=== PATIENT | female | born 1960 | race Caucasian/White ===

== ENCOUNTER → 2017-06-17 | Day surgery (SDC) | payer OTHER ==
[2017-06-10 07:58] VITALS: Ht 167.6 cm; Wt 90.9 kg
[~2017-06-17] VITALS: Ht 167.6 cm; Wt 90.9 kg
[~2017-06-17] MED LIST: CALC1CHW57 PO; CLIN150C PO; CYAN1TAB18 PO; DLD/2 PO; DMD20 PO; FENTANYL CITRATE INJ 50 MCG/1 ML 2 ML VIAL ONE; FLX/5 PO; FSLL PO; HYDR2TAB48 PO; LCTL45 PO; LEVO75TA5 PO; LIDOCAINE HCL 2% 2 ML VIAL (20MG/ML) ONE; LXP/20 PO; MAGN400T6 PO; NRN/300 PO; OMEG10007 PO; PROPOFOL IV EMULSION 10 MG/ML 20 ML VIAL IV ONE; PRT/40 PO; RIFA550T2 PO; SODIUM CHLORIDE 0.9% 500ML 500 ML IV ONE; SUCR1TAB29 PO; TRAZ100T29 PO; WARF4TAB8 PO
[2017-06-17 13:43] VITALS: TEMP 36.8
--- NOTE | 2017-06-17 14:01 | Endo History and Physical ---
History & Physical Date of Service: Jun 17, 2017. Chief Complaint: DAVIS Referring Physician: Dr. Naresh Bro History of Present Illness cirrhosis Past Medical History Arthritis, Depression Past Surgical History Hx Cardiac Surgery: Yes (HEART CATH-NO STENTS) Hx Internal Defibrillator: No Hx Pacemaker: No Hx Abdominal Surgery: Yes (GASTRIC BYPASS) Hx of Implantable Prosthesis: No Hx Post-Op Nausea and Vomiting: No Hx Cancer Surgery: No Hx Thoracic Surgery: No Hx Orthopedic: Yes (RT SHOULDER SX AND HARDWARE REMOVAL, RT TKA AND REVISION ( ANX SPACER)) Hx Urinary Tract Surgery: No Family History None Social History Smoking Status: Never Smoker Hx Substance Use: Yes (SEE MED REC) Hx Alcohol Use: No Allergies Coded Allergies: Cefaclor (Verified Allergy, Intermediate, Swelling, 06/10/17) Amoxicillin (Verified Allergy, Mild, Nausea, 06/10/17) Oxycodone (Verified Allergy, Unknown, HIVES, 06/17/17) Current Medications Reported Home Medications Medications Dose Route/Sig Max Daily Dose Days Date Category Dose Instructions Carafate (Sucralfate) 1 Gm Tab 1 Gm PO BID PRN 06/10/17 Reported Trazodone (Trazodone HCl) 100 Mg Tab 100 Mg PO HS 06/10/17 Reported Neurontin (Gabapentin) 300 Mg Cap 2 Tab PO BID 06/10/17 Reported Calcium + D (Calcium W/ Vitamins D & K) 1 Chw Chw 1 Dose PO BID 06/10/17 Reported Lactulose 30 Gm/45 Ml Syrp 30 Gm PO DIRECTED 07/21/16 Reported TAKE IF NOT HAVE A BM Mag-Ox (Magnesium Oxide) 400 Mg Tab 400 Mg PO BID 07/21/16 Reported Cyclobenzaprine HCl 5 Mg Tab 5 Mg PO BID PRN 07/21/16 Reported Hydromorphone HCl 2 Mg Tab 2 Mg PO TID 07/21/16 Reported Escitalopram Oxalate 20 Mg Tab 20 Mg PO QAM 07/21/16 Reported Pantoprazole Sodium (Pantoprazole) 40 Mg Tab 40 Mg PO BID PRN 07/21/16 Reported Xifaxan (Rifaximin) 550 Mg Tab 550 Mg PO BID 07/21/16 Reported Torsemide 20 Mg Tab 40 Mg PO BID 07/17/16 Reported Jantoven (Warfarin Sodium) 4 Mg Tab 4 Mg PO 5XWK 07/17/16 Reported TAKE 4 MG EVERY THURSDAY,THURSDAY,THURSDAY,THURSDAY AND THURSDAY OR OTHERWISE DIRECTED TO TAKE BY ANTICOAGULATION CLINIC/MD Ferrous Sulfate 220 Mg/5 Ml Elix 1 Dose PO QAM 07/17/16 Reported Jantoven (Warfarin Sodium) 4 Mg Tab 6 Mg PO 2XWK 07/17/16 Reported TAKE 6 MG EVERY THURSDAY AND THURSDAY OR OTHERWISE DIRECTED TO TAKE BY ANTICOAGULATION CLINIC/MD Levothyroxine Sodium 75 Mcg Tab 75 Mcg PO QAM 07/17/16 Reported [place]-3 (Fish Oil) 1 Ea Cap 1 Cap PO BID 10/08/15 Reported B-12 (Cyanocobalamin) 1,000 Mcg Tab 1,000 Mcg PO QAM 10/08/15 Reported Vital Signs Weight (Kilograms): 90.91 Height (Feet): 5 Height (Inches): 6 Date Time Temp Pulse Resp B/P (MAP) Pulse Ox O2 Delivery O2 Flow Rate FiO2 06/17/17 13:43 36.8 78 20 114/77 (89) 99 Room Air Physical Exam General Appearance: WD/WN, no apparent distress Assessment and Plan EGD today
--- NOTE | 2017-06-17 14:22 | Discharge Instructions ---
Endoscopy Patient Instructions Date / Procedure(s) Performed Jun 17, 2017. EGD Allergy Information Coded Allergies: Cefaclor (Verified Allergy, Intermediate, Swelling, 06/10/17) Amoxicillin (Verified Allergy, Mild, Nausea, 06/10/17) Oxycodone (Verified Allergy, Unknown, HIVES, 06/17/17) Discharge Date / Findings Jun 17, 2017. small flattened esophageal varices RYGB Medication Instructions Stopped Medication(s): Last dose Warfarin 06/14 Restart Stopped Medication(s): OK to resume home medications Provider Instructions Activity Restrictions - No exercising or heavy lifting for 24 hours. - Do not drink alcohol the day of the procedure. - Do not drive a car or operate machinery until the day after the procedure. - Do not make any important decisions or sign important papers in 24 hours after the procedure. Following Day: - Return to full activity which may include returning to work/school. Diet Start your diet with liquids and light foods (jello, soup, juice, toast). Then eat your usual diet if not nauseated. Treatment For Common After Affects For mild abdominal pain, bloating, or excessive gas: - Rest - Eat lightly - Lie on right side Follow-Up Information Follow-up with Dr. Naresh Bro as scheduled Anesthesia Information What You Should Know You have had a procedure that required some medicine to reduce anxiety and discomfort. This treatment is called moderate sedation. After receiving the treatment, you may be sleepy, but you will be able to breathe on your own. The effects of the treatment may last for several hours. Follow these instructions along with Activity/Diet recommendations noted above: * Do NOT do anything where dizziness or clumsiness would be dangerous. * Rest quietly at home today, then you can be up and about tomorrow. * Have a responsible person stay with you the rest of today. * You may have had an I.V. today. If so, you may take the dressing off later today. Recommendations Call your doctor if: * Trouble breathing * Continuous vomiting for more than 24 hours * Temperature above 101 degrees * Severe abdominal pain or bloating * Pain not relieved by pain medicine ordered * There is increased drainage or redness from any incision * A large amount of rectal bleeding greater than 2-3 tablespoons. (If you had a polyp/s removed or have hemorrhoids, a small amount of blood - from the rectum is to be expected.) * You have any unanswered questions or concerns. IN THE EVENT OF A SERIOUS EMERGENCY, GO TO THE NEAREST EMERGENCY ROOM Your discharge instructions were prepared by provider Luz Marina Gallegos. Patient Instructions Signature Page Cherrie Ascencio Patient (or Guardian) Signature/Date: I have read and understand the instructions given to me by my caregivers. Caregiver/RN/Doctor Signature/Date: The above-named patient and/or guardian has received patient instructions on this date. + Original Patient Signature Page (only) stays with chart. Please make copy for patient.
--- NOTE | 2017-06-17 14:28 | GI REPORT ---
Procedure Date: 06/17/2017 1:34 PM Procedure: Upper GI endoscopy Indications: Cirrhosis rule out esophageal varices Medicines: Propofol per Anesthesia Complications: No immediate complications. Estimated blood loss: None. Estimated Blood Loss: Estimated blood loss: none. Procedure: Pre-Anesthesia Assessment: - Prior to the procedure, a History and Physical was performed, and patient medications, allergies and sensitivities were reviewed. The patient's tolerance of previous anesthesia was reviewed. - The risks and benefits of the procedure and the sedation options and risks were discussed with the patient. All questions were answered and informed consent was obtained. - Patient identification and proposed procedure were verified prior to the procedure by the physician and the nurse. The procedure was verified in the pre-procedure area in the procedure room. - Mental Status Examination: alert and oriented. Airway Examination: normal oropharyngeal airway and neck mobility. Respiratory Examination: clear to auscultation. CV Examination: normal. Abdominal Examination: bowel sounds present, abdomen soft and non-tender, no masses or organomegaly noted. - ASA Grade Assessment: III - A patient with severe systemic disease. After obtaining informed consent, the endoscope was passed under direct vision. Throughout the procedure, the patient's blood pressure, pulse, and oxygen saturations were monitored continuously. The scope was introduced through the mouth, and advanced to the jejunum. The upper GI endoscopy was accomplished without difficulty. The patient tolerated the procedure well. Findings: Grade I varices were found in the lower third of the esophagus. Evidence of a Silvio-en-Y gastrojejunostomy was found. The gastrojejunal anastomosis was characterized by healthy appearing mucosa, an intact staple line and visible sutures. This was traversed. The pzwuw-ki-tjvnyle limb was characterized by healthy appearing mucosa. The jejunojejunal anastomosis was characterized by healthy appearing mucosa. The examined jejunum was normal. Impression: - Grade I esophageal varices. - Silvio-en-Y gastrojejunostomy with gastrojejunal anastomosis characterized by healthy appearing mucosa, an intact staple line and visible sutures. - Normal examined jejunum. - No specimens collected. Recommendation: - Repeat the upper endoscopy in 2 years for surveillance. - Return to primary care physician as previously scheduled. - Discharge patient to home. Luz Marina Gallegos D.O. Luz Marina Gallegos DO 06/17/2017 2:27:33 PM This report has been signed electronically. Note Initiated On: 06/17/2017 1:34 PM I attest to the content of the Intraoperative Record and orders documented therein, exceptions below
--- NOTE | 2017-06-17 14:48 | Anesthesiology Progress Note ---
Anesthesia Post Op Note Date & Time Jun 17, 2017 at 14:47 Vital Signs Pain Intensity: 0 Vital Signs Past 12 Hours Date Time Temp Pulse Resp B/P (MAP) Pulse Ox O2 Delivery O2 Flow Rate FiO2 06/17/17 14:34 72 20 133/76 (95) 95 Room Air 06/17/17 14:19 71 20 112/62 (79) 95 Room Air 06/17/17 13:43 36.8 78 20 114/77 (89) 99 Room Air Notes Mental Status: alert / awake / arousable, participated in evaluation Pt Amnestic to Procedure: Yes Nausea / Vomiting: adequately controlled Pain: adequately controlled Airway Patency, RR, SpO2: stable & adequate BP & HR: stable & adequate Hydration State: stable & adequate Anesthetic Complications: no major complications apparent
[2017-06-17 14:49] VITALS: BP 126/87; PULSE 68; O2SAT 100
== END | disposition home or self-care (01) ==
LOC: C.GI 12:27
PROVIDERS: ATTEND Internal Medicine
DX: I85.00 Esophageal varices without bleeding (principal); K74.60 Unspecified cirrhosis of liver; M19.90 Unspecified osteoarthritis, unspecified site; F32.9 Major depressive disorder, single episode, unspecified; Z98.84 Bariatric surgery status; Z79.899 Other long term (current) drug therapy; Z79.01 Long term (current) use of anticoagulants

== ENCOUNTER 2017-07-12 08:20 | Emergency (ER) | payer OTHER ==
[~2017-07-12] VITALS: Ht 170.2 cm; Wt 100.0 kg
[~2017-07-12 08:20] MED LIST changes: -CLIN150C PO; -FENTANYL CITRATE INJ 50 MCG/1 ML 2 ML VIAL ONE; -HYDR2TAB48 PO; -LIDOCAINE HCL 2% 2 ML VIAL (20MG/ML) ONE; -PROPOFOL IV EMULSION 10 MG/ML 20 ML VIAL IV ONE; -SODIUM CHLORIDE 0.9% 500ML 500 ML IV ONE
[2017-07-12 08:24] VITALS: TEMP 36.7; Ht 170.2 cm; Wt 100.0 kg
--- NOTE | 2017-07-12 09:02 | DIAGNOSTIC IMAGING REPORT ---
RIGHT SHOULDER MIN 2 VIEWS ROUTINE CLINICAL HISTORY: R shoulder pain Right pain COMPARISON: None. DISCUSSION: Severe degenerative change right humeral head and neck. Considerable degenerative change right glenoid. Mild degenerative change acromioclavicular joint. No well-defined fracture dislocation. There is no evidence for soft tissue swelling. IMPRESSION: Severe degenerative and postoperative change as described. No acute bony abnormality. The above report was generated using voice recognition software. It may contain grammatical, syntax or spelling errors. Electronically signed by: Naresh Gutierres M.D. 07/12/2017 9:00 AM Dictated Date/Time: 07/12/2017 9:00 AM
[2017-07-12] MEDS ORDERED: ONDANSETRON INJ 2 MG/ML 2 ML VIAL IV STA (09:38)
[2017-07-12] MEDS ORDERED: MoRPHine SULFATE 4 MG/ML 1 ML CARP\\VIAL IV STA (09:38)
[2017-07-12 10:37] LABS: BASO % 0.6 %; BASO ABS # 0.04 K/uL (0-0.2); COMPLETE YES; EOS % 2.3 %; HEMATOCRIT 37.1 % (37-47); IG% 0.3 %; LYMPH % 18.3 %; LYMPH ABS # 1.17 K/uL (1.2-3.4); MEAN CELL VOLUME 89.8 fL (80-100); MEAN CORPUSCULAR HEMOGLOBIN 27.6 pg (25-34); MEAN CORPUSCULAR HGB CONC 30.7 g/dl (32-36); MEAN PLATELET VOLUME 9.9 fL (7.4-10.4); MONO % 7.7 %; NEUT % 70.8 %; PLATELET COUNT 240 K/uL (130-400); RED BLOOD COUNT 4.13 M/uL (4.2-5.4); WHITE BLOOD COUNT 6.39 K/uL (4.8-10.8)
[2017-07-12 11:24] VITALS: BP 162/70; PULSE 66; O2SAT 98
--- NOTE | 2017-07-12 17:26 | EMERGENCY ROOM VISIT NOTE ---
History First contact with patient: 08:28 Chief Complaint: SHOULDER PAIN Stated Complaint: R SHOULDER PAIN,POSS. DISLOCATION History of Present Illness The patient is a 57 year old white female who presents to the Emergency Room with complaints of severe right shoulder pain that started this morning. 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 This was subsequently removed. She has had chronic pain in her shoulder. She usually uses Dilaudid orally every 8 hours. She states she felt a pop in her shoulder this morning and has had excruciating pain since. She is unsure where the pop came from. No numbness or tingling. She is wondering if her shoulder is dislocated. A female friend accompanies her today. Right-hand dominant. No other complaints. She states she has been using the shoulder more to help pull herself up the stairs. She states she normally sees Dr. Randhawa for her shoulder, but did not contact him today. Review of Systems REVIEW OF SYSTEM: HEENT: No dizziness, visual problems, hearing loss, or tinnitus. There is no difficulty swallowing and no oral lesions are present. LYMPH: No adenopathy. PULMONARY: No cough, shortness of breath, sputum production or hemoptysis. CARDIOVASCULAR: No chest pain, palpitations, shortness of breath or peripheral edema. GASTROINTESTINAL: No diarrhea, constipation, nausea, vomiting, or abdominal pain. GENITOURINARY: No dysuria, frequency, urgency or nocturia. NEUROLOGIC: No weakness, muscle tenderness, epilepsy or history of neurological problems. MUSCULOSKELETAL: No history of joint tenderness/swelling. Positive history of arthritis and arthralgias. SKIN: No rashes or lesions. PSYCHIATRIC: Positive history of depression. ENDOCRINE: No history of diabetes or abnormal hair growth. Past Medical/Surgical History Medical Problems: (1) Acute renal failure (ARF) (2) Anemia, iron deficiency (3) Cirrhosis (4) Gastric peptic ulcer (5) gatro gastic fistulae (6) Hypoalbuminemia (7) Hyponatremia (8) Pyuria (9) Weakness Family History Noncontributory. Social History Smoking Status: Never Smoker Alcohol Use: none, other Drug Use: none Housing Status: lives with family Occupation Status: disabled Current/Historical Medications Scheduled Calcium W/ Vitamins D & K (Calcium + D), 1 DOSE PO BID Cyanocobalamin (B-12), 1,000 MCG PO QAM Escitalopram Oxalate (Escitalopram Oxalate), 20 MG PO QAM Ferrous Sulfate (Ferrous Sulfate), 1 DOSE PO QAM Fish Oil ([place]-3), 1 CAP PO BID Gabapentin (Neurontin), 2 TAB PO BID Lactulose (Lactulose), 30 GM PO DIRECTED Levothyroxine Sodium (Levothyroxine Sodium), 75 MCG PO QAM Magnesium Oxide (Mag-Ox), 400 MG PO BID Rifaximin (Xifaxan), 550 MG PO BID Torsemide (Torsemide), 40 MG PO BID Trazodone Hcl (Trazodone), 100 MG PO HS Warfarin Sod (Jantoven), 6 MG PO 2XWK Warfarin Sod (Jantoven), 4 MG PO 5XWK Scheduled PRN Cyclobenzaprine HCl (Cyclobenzaprine HCl), 5 MG PO BID PRN for Muscle Spasm Pantoprazole (Pantoprazole Sodium), 40 MG PO BID PRN for Acid Reflux Sucralfate (Carafate), 1 GM PO BID PRN for Indigestion Allergies Coded Allergies: Cefaclor (Verified Allergy, Intermediate, Swelling, 07/12/17) Amoxicillin (Verified Allergy, Mild, Nausea, 07/12/17) Oxycodone (Verified Allergy, Unknown, HIVES, 07/12/17) Physical Exam Vital Signs Date Time Temp Pulse Resp B/P (MAP) Pulse Ox O2 Delivery O2 Flow Rate FiO2 07/12/17 11:24 66 18 162/70 98 07/12/17 10:15 66 18 154/76 100 Room Air 07/12/17 08:24 36.7 85 16 157/109 99 Room Air Pain Rating (0-10): 5.0 Physical Exam Gen.: Well-developed, well-nourished, middle-aged white female, who looks older than her stated age. Sitting on a bed. Crying. Alert and oriented. Skin:Warm and dry with good turgor. No rashes or lesions. No ecchymosis or erythema. The patient is not diaphoretic. No abrasions. Large scar present over the anterior right shoulder. Musculoskeletal: Patient has diffuse discomfort with palpation about her right shoulder. It is both posterior and lateral. No defect palpable in the proximal biceps tendon. No barber sign for the elbow. Very limited active and passive range of motion of the right shoulder secondary to pain. Internal rotation to forearm against her abdomen. Extremities only to neutral. Very limited forward flexion and abduction secondary to pain. Full finger, wrist, and elbow motion. Strength is 5/5 for resisted internal and external rotation of the shoulder as well as forward flexion and abduction. These all cause an increase in her pain. No palpable fullness in the anterior chest wall and no sulcus sign to suggest dislocation. Neurologic: Gross sensation is intact across the right arm by soft touch. Peripheral pulses are 2+. Medical Decision & Procedures ER Provider Diagnostic Interpretation: Radiographic imaging obtained today of the right shoulder was reviewed by me and will be read by radiology. Extensive arthritic changes with no hardware present. She has a large irregular services on the glenoid as well as the proximal humeral shaft. There is no humeral head to speak of. No new fracture though there is an old fracture callus. Laboratory Results 07/12/17 10:25 Red Blood Count 4.13, Mean Corpuscular Volume 89.8, Mean Corpuscular Hemoglobin 27.6, Mean Corpuscular Hemoglobin Concent 30.7, Mean Platelet Volume 9.9, Neutrophils (%) (Auto) 70.8, Lymphocytes (%) (Auto) 18.3, Monocytes (%) (Auto) 7.7, Eosinophils (%) (Auto) 2.3, Basophils (%) (Auto) 0.6, Neutrophils # (Auto) 4.52, Lymphocytes # (Auto) 1.17, Monocytes # (Auto) 0.49, Eosinophils # (Auto) 0.15, Basophils # (Auto) 0.04 Test 07/12/17 10:25 White Blood Count 6.39 K/uL (4.8-10.8) Red Blood Count 4.13 M/uL (4.2-5.4) Hemoglobin 11.4 g/dL (12.0-16.0) Hematocrit 37.1 % (37-47) Mean Corpuscular Volume 89.8 fL (80-100) Mean Corpuscular Hemoglobin 27.6 pg (25-34) Mean Corpuscular Hemoglobin Concent 30.7 g/dl (32-36) Platelet Count 240 K/uL (130-400) Mean Platelet Volume 9.9 fL (7.4-10.4) Neutrophils (%) (Auto) 70.8 % Lymphocytes (%) (Auto) 18.3 % Monocytes (%) (Auto) 7.7 % Eosinophils (%) (Auto) 2.3 % Basophils (%) (Auto) 0.6 % Neutrophils # (Auto) 4.52 K/uL (1.4-6.5) Lymphocytes # (Auto) 1.17 K/uL (1.2-3.4) Monocytes # (Auto) 0.49 K/uL (0.11-0.59) Eosinophils # (Auto) 0.15 K/uL (0-0.5) Basophils # (Auto) 0.04 K/uL (0-0.2) RDW Standard Deviation 46.6 fL (36.4-46.3) RDW Coefficient of Variation 14.1 % (11.5-14.5) Immature Granulocyte % (Auto) 0.3 % Immature Granulocyte # (Auto) 0.02 K/uL (0.00-0.02) Erythrocyte Sedimentation Rate 15 mm/hr (0-21) C-Reactive Protein < 0.29 mg/dl (0-0.29) CBC, sedimentation rate, and C-reactive protein were obtained. These are all unremarkable. No signs of infection or significant inflammation. Medications Administered Medications (Trade) Dose Ordered Sig/Jerel Route Start Time Stop Time Status Last Admin Dose Admin Morphine Sulfate (MoRPHine SULFATE INJ) 4 mg NOW STAT IV 07/12/17 09:38 07/12/17 09:41 DC 07/12/17 10:11 4 MG Ondansetron HCl (Zofran Inj) 4 mg NOW STAT IV 07/12/17 09:38 07/12/17 09:41 DC 07/12/17 10:11 4 MG ED Course Patient was educated regarding today's findings. Conservative care measures were discussed. X-ray imaging was obtained. CBC, sedimentation rate, and C- reactive protein were all obtained and are unremarkable. She already takes heavier narcotics on a daily basis and I did augment these using morphine 4 mg IV and Zofran 4 mg IV for her acute pain. She may resume her normal medications this evening. Ice to the shoulder intermittently for mild discomfort. Ice bag was provided in the ED. She was also given a lengthy support her shoulder. She should be out of it several times per day to emphasize range of motion. Follow-up with Dr. Randhawa to discuss whether a cortisone injection would be of benefit. She may also speak with him about any further surgical intervention. Medical Decision Possibility of dislocation, fracture, rotator cuff irritation, arthritis exacerbation, biceps tendon rupture, rotator cuff rupture, and infection were considered. [place] Drug Monitoring Program Search Results: patient reviewed within database (receives narcotic prescriptions from Dr. Bro) Impression Primary Impression: Chronic right shoulder pain Departure Information Dispostion Home / Self-Care Condition GOOD Forms HOME CARE DOCUMENTATION FORM, IMPORTANT VISIT INFORMATION Patient Instructions My [employer] Additional Instructions Ice intermittently to the shoulder as needed for discomfort Use the sling as needed for support Continue your usual pain medications Follow-up with Dr. Randhawa for reexamination or to discuss cortisone injection Return to the ED for any acute changes
== END 2017-07-12 11:25 | disposition home or self-care (01) ==
LOC: C.EDB 08:21
DX: M25.511 Pain in right shoulder (principal); D64.9 Anemia, unspecified; N19 Unspecified kidney failure; E88.09 Other disorders of plasma-protein metabolism, not elsewhere classified; E87.1 Hypo-osmolality and hyponatremia; Z79.01 Long term (current) use of anticoagulants

== ENCOUNTER 2017-08-02 08:38 | Emergency (ER) | payer OTHER ==
[~2017-08-02] VITALS: Ht 170.2 cm; Wt 106.0 kg
[~2017-08-02 08:38] MED LIST changes: -DLD/2 PO
[2017-08-02] MEDS ORDERED: LIDOCAINE 4% W/AFRIN NASAL SOLN 4ML EXT STA (08:41)
[2017-08-02 08:42] VITALS: TEMP 36.9; Ht 170.2 cm; Wt 106.0 kg
--- NOTE | 2017-08-02 08:56 | EMERGENCY ROOM VISIT NOTE ---
History Report prepared by Sushma: Mariama Martinez Under the Supervision of: Dr. Real Jackson M.D. First contact with patient: 08:41 Chief Complaint: NOSE BLEED (MINOR) Stated Complaint: NOSEBLEED-COUMADIN PATIENT History of Present Illness The patient is a 57 year old female who presents to the Emergency Room with complaints of a persistent nosebleed for the past 24 hours. She does take daily Coumadin for a history of atrial fibrillation. She notes the bleeding worsens when she moves around. She admits to increased rhinorrhea for the past few days but denies turning the heat on in her home this past week. 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 A total of 10 systems reviewed and were otherwise negative. Past Medical & Surgical Medical Problems: (1) Acute renal failure (ARF) (2) Anemia, iron deficiency (3) Cirrhosis (4) Gastric peptic ulcer (5) gatro gastic fistulae (6) Hypoalbuminemia (7) Hyponatremia (8) Pyuria (9) Weakness Social History Smoking Status: Never Smoker Alcohol Use: none, other Drug Use: none Marital Status: Housing Status: lives with family Occupation Status: disabled Current/Historical Medications Scheduled Calcium W/ Vitamins D & K (Calcium + D), 1 DOSE PO BID Clindamycin Hcl (Cleocin), 300 MG PO QID Cyanocobalamin (B-12), 1,000 MCG PO QAM Escitalopram Oxalate (Escitalopram Oxalate), 20 MG PO QAM Ferrous Sulfate (Ferrous Sulfate), 1 DOSE PO QAM Fish Oil ([place]-3), 1 CAP PO BID Gabapentin (Neurontin), 2 TAB PO BID Hydromorphone Hcl (Dilaudid), 2 MG PO TID Lactulose (Lactulose), 30 GM PO DIRECTED Levothyroxine Sodium (Levothyroxine Sodium), 75 MCG PO QAM Magnesium Oxide (Mag-Ox), 400 MG PO BID Rifaximin (Xifaxan), 550 MG PO BID Torsemide (Torsemide), 40 MG PO BID Trazodone Hcl (Trazodone), 100 MG PO HS Warfarin Sod (Jantoven), 6 MG PO 2XWK Warfarin Sod (Jantoven), 4 MG PO 5XWK Scheduled PRN Pantoprazole (Pantoprazole Sodium), 40 MG PO BID PRN for Acid Reflux Sucralfate (Carafate), 1 GM PO BID PRN for Indigestion Allergies Coded Allergies: Cefaclor (Verified Allergy, Intermediate, Swelling, 08/02/17) Amoxicillin (Verified Allergy, Mild, Nausea, 08/02/17) Oxycodone (Verified Allergy, Unknown, HIVES, 08/02/17) Physical Exam Vital Signs Date Time Temp Pulse Resp B/P (MAP) Pulse Ox O2 Delivery O2 Flow Rate FiO2 08/02/17 12:30 70 18 154/99 96 Room Air 08/02/17 10:45 83 18 150/97 97 Room Air 08/02/17 08:42 36.9 89 18 152/91 100 Room Air Physical Exam GENERAL: Patient is a healthy-appearing well-nourished 57 year old female HEAD: Normocephalic atraumatic EYES: Ocular movements intact pupils equal and react to light OROPHARYNX: Bleeding fro right nares, blood in the back of the throat, mucous membranes are moist, no exudates, present no erythema or edema present NECK: Supple no nuchal rigidity CHEST: Good equal expansion LUNGS: Clear and equal to auscultation CARDIAC: Normal S1 and S2 ABDOMEN: Soft nontender no guarding BACK: No CVA tenderness EXTREMITIES: No pain upon palpation normal muscle strength in all groups no clubbing cyanosis or edema NEURO: Patient is following commands is answering questions appropriately. Alert and oriented x3 Cranial Nerves 2-12 grossly intact Medical Decision & Procedures Laboratory Results Test 08/02/17 09:15 Prothrombin Time 51.3 SECONDS (9.0-12.0) Prothromb Time International Ratio 4.5 (0.9-1.1) Labs reviewed by ED physician. Medications Administered Medications (Trade) Dose Ordered Sig/Jerel Route Start Time Stop Time Status Last Admin Dose Admin Oxycodone/ Acetaminophen (Percocet 5-325mg Tab) 2 tab NOW STAT PO 08/02/17 09:02 08/02/17 09:05 DC 08/02/17 09:25 2 TAB Hydromorphone HCl (Dilaudid Inj) 2 mg NOW STAT IM 08/02/17 12:53 08/02/17 12:54 DC 08/02/17 13:03 2 MG Clindamycin HCl (Cleocin Cap) 300 mg ONE ONCE PO 08/02/17 13:15 08/02/17 13:16 DC 08/02/17 13:28 300 MG Clindamycin HCl (Cleocin 150MG Home Pack) 1 homepack UD STAT PO 08/02/17 13:07 08/02/17 13:09 DC 08/02/17 13:28 1 HOMEPACK Procedure 1st Attempt: Anterior Nasal Packing Indication: Epistaxis Verbal consent obtained. Risks and benefits were explained with the usual customary discussion. A time out was taken. Clots were removed with suction. The bilateral nares was prepped with Afrin and lidocaine. A 5.5-cm cotton nose plug was placed in a standard fashion. The patient tolerated this well. Hemostasis was achieved. I cautioned the patient she cannot drink with this in place. No complications. 2nd Attempt: Anterior Nasal Packing Indication: Epistaxis Verbal consent obtained. Risks and benefits were explained with the usual customary discussion. A time out was taken. Clots were removed with suction. The bilateral nares was prepped with Afrin and lidocaine. A 5.5-cm nasal balloon was placed in a standard fashion. The patient tolerated this well. Hemostasis was achieved. I cautioned the patient she cannot drink with this in place. No complications. ED Course 0848: Past medical records reviewed. The patient was evaluated in room B2. A complete history and physical examination was performed. 0850: Lidocaine HCl 4 ml EXT. 0902: Percocet 5-325 mg 2 tab PO. 0920: I reevaluated the patient. She is still not bleeding. 0935: I reevaluated the patient. She is still not bleeding. 1010: I reevaluated the patient. She is feeling well and resting comfortably. She has experienced no further bleeding. I discussed her results and discharge instructions and she verbalized complete understanding and agreement. 1045: Nursing informed me the patients nose has started bleeding again. 1100: I reevaluated the patient. I will try placing cotton nosebleed plugs and see if that stops the bleeding. 1205: I reevaluated the patient. She is still experiencing epistaxis. I will try placing a balloon. 1307: Clindamycin HCl 1 homepack PO. 1310: I reevaluated the patient. She is no longer bleeding. I discussed her results and discharge instructions and she verbalized complete understanding and agreement. 1315: Clindamycin 300 mg PO. Medical Decision Prior records/ancillary studies reviewed. Triage Nursing notes reviewed. The patient's history was concerning for epistaxis. Differential diagnosis: Etiologies such as anterior epistaxis, coagulopathy, traumatic injury, fracture , septal hematoma, posterior epistaxis as well as other pathologies were entertained. This is a 57-year-old female who presents emergency department complaining of nosebleed. Using shared medical decision making, we tried progressively to get the patient's epistaxis under control first using removable packing then using flakes then a Rhino Rocket and finally a balloon. The patient was given Percocet for pain as well as Dilaudid. Once the balloon was in place the patient's epistaxis was controlled. I do feel that she is well enough to be discharged home for follow-up with ear nose and throat. She'll be placed on clindamycin. Patient was in agreement with the treatment plan. Medication Reconcilliation Current Medication List: was personally reviewed by me Blood Pressure Screening Patient's blood pressure: Elevated blood pressure Blood pressure disposition: Referred to PCP Impression Primary Impression: Epistaxis Scribe Attestation The scribe's documentation has been prepared under my direction and personally reviewed by me in its entirety. I confirm that the note above accurately reflects all work, treatment, procedures, and medical decision making performed by me. Departure Information Dispostion Home / Self-Care Prescriptions Clindamycin Hcl (CLEOCIN) 150 Mg Cap 300 MG PO QID for 2 Days, #16 CAP Prov: Real Jackson MD 08/02/17 Referrals Narseh Bro M.D. (PCP) Patient Instructions ED Nasal Packing Anterior Removable, ED Nosebleed, My [facility] Additional Instructions Coumadin INR =4.5; Hold Coumadin for two days Return in [address] Willard's office to have balloon removed Follow up with DR Willard's office for continued bleeding You were found to have an elevated blood pressure today (>120 sytolic or >90 diastolic). Per medicare guidelines, you need to follow up with this blood pressure screening with your Primary Care Physician (PCP). For a new PCP call [phone]. You have been examined and treated today on an emergency basis only. This is not a substitute for, or an effort to provide, complete comprehensive medical care. It is impossible to recognize and treat all injuries or illnesses in a single emergency department visit. It is therefore important that you follow up closely with Dr Bro. Call as soon as possible for an appointment. Thank you for your time and consideration. I look forward to speaking with you again soon. Please don't hesitate to call us if you have any questions.
[2017-08-02] MEDS ORDERED: OXYCODONE/ACETAMINOPHEN 5-325 TAB PO STA (09:02)
[2017-08-02] MEDS ORDERED: HYDR2TAB48 PO (09:13)
[2017-08-02 09:59] LABS: INR 4.5 (0.9-1.1); PROTHROMBIN TIME (PATIENT) 51.3 SECONDS (9.0-12.0)
[2017-08-02] MEDS ORDERED: HYDROmorphone INJ 2 MG/ML SYR/VIAL IM STA (12:53)
[2017-08-02] MEDS ORDERED: CLINDAMYCIN 150MG HOME PACK PO STA (13:07)
[2017-08-02] MEDS ORDERED: CLIN150C PO (13:09)
[2017-08-02] MEDS ORDERED: CLINDAMYCIN HCL 150 MG CAP PO ONE (13:15)
[2017-08-02 13:35] VITALS: BP 122/99; PULSE 75; O2SAT 97
== END 2017-08-02 14:16 | disposition home or self-care (01) ==
LOC: C.EDB 08:40
DX: R04.0 Epistaxis (principal); E61.1 Iron deficiency; N17.9 Acute kidney failure, unspecified; K74.60 Unspecified cirrhosis of liver; E88.09 Other disorders of plasma-protein metabolism, not elsewhere classified; E87.1 Hypo-osmolality and hyponatremia; Z79.01 Long term (current) use of anticoagulants; Z51.81 Encounter for therapeutic drug level monitoring

== ENCOUNTER 2017-09-22 01:44 | Emergency (ER) | payer OTHER ==
[~2017-09-22] VITALS: Ht 175.3 cm; Wt 107.4 kg
[~2017-09-22 01:44] MED LIST changes: -FLX/5 PO; +HYDR2TAB48 PO; +PANT40TA2 PO; -PRT/40 PO
[2017-09-22 01:49] VITALS: TEMP 36.3; Ht 175.3 cm; Wt 107.4 kg
[2017-09-22] MEDS ORDERED: HYDROmorphone INJ 2 MG/ML SYR/VIAL IM STA (01:58)
[2017-09-22] MEDS ORDERED: KETOROLAC TROMETHAMINE 60 MG/2 ML VIAL IM STA (02:01)
[2017-09-22 02:33] VITALS: BP 163/94; PULSE 73; O2SAT 97
--- NOTE | 2017-09-22 04:35 | EMERGENCY ROOM VISIT NOTE ---
History Report prepared by Sushma: Yahaira Brandon Under the Supervision of: Dr. Brinda Chowdary M.D. First contact with patient: 01:52 Chief Complaint: SHOULDER PAIN Stated Complaint: RT SHOULDER PAIN History of Present Illness The patient is a 57 year old female who presents to the Emergency Room with complaints of worsening shoulder pain starting this evening. The patient states that she doesn't have a shoulder joint. She states that the pain is different than usual and that it is going the whole way down her arm. She states that she can't move it and if she tries, the pain is worse. She states that the pain feels muscular and that it feels like it is pulling on her neck, chest, and back. The patient notes that she was here in July for the same thing. She notes that she ran out of her Dilaudid five days ago. She states that she came to the ED because she couldn't lie down to go to sleep. The patient denies shortness of breath and chest pain. The patient notes that her orthopedic surgeon wants to place a spacer in her shoulder. She notes that she plans to do that. Source of History: patient Onset: this evening Position: shoulder (right) Quality: other (pulling, muscular) Timing: worsening Modifying Factors (Worsening): movement Associated Symptoms: No chest pain, No SOB Note: The patient complains of the pain pulling on her neck, back, and chest. Review of Systems See HPI for pertinent positives & negatives. A total of 10 systems reviewed and were otherwise negative. Past Medical & Surgical Medical Problems: (1) Acute renal failure (ARF) (2) Anemia, iron deficiency (3) Cirrhosis (4) Gastric peptic ulcer (5) gatro gastic fistulae (6) Hypoalbuminemia (7) Hyponatremia (8) Pyuria (9) Weakness Family History No pertinent family history Social History Smoking Status: Never Smoker Alcohol Use: none, other Drug Use: none Marital Status: Housing Status: lives with family Occupation Status: disabled Current/Historical Medications Scheduled Calcium W/ Vitamins D & K (Calcium + D), 1 DOSE PO BID Cyanocobalamin (B-12), 1,000 MCG PO QAM Escitalopram Oxalate (Escitalopram Oxalate), 20 MG PO QAM Ferrous Sulfate (Ferrous Sulfate), 1 DOSE PO QAM Fish Oil ([place]-3), 1 CAP PO BID Gabapentin (Neurontin), 2 TAB PO BID Hydromorphone Hcl (Dilaudid), 2 MG PO TID Lactulose (Lactulose), 30 GM PO DIRECTED Levothyroxine Sodium (Levothyroxine Sodium), 75 MCG PO QAM Magnesium Oxide (Mag-Ox), 400 MG PO BID Rifaximin (Xifaxan), 550 MG PO BID Torsemide (Torsemide), 40 MG PO BID Trazodone Hcl (Trazodone), 100 MG PO HS Warfarin Sod (Jantoven), 6 MG PO 2XWK Warfarin Sod (Jantoven), 4 MG PO 5XWK Scheduled PRN Pantoprazole (Pantoprazole Sodium), 40 MG PO BID PRN for Acid Reflux Sucralfate (Carafate), 1 GM PO BID PRN for Indigestion Allergies Coded Allergies: Cefaclor (Verified Allergy, Intermediate, Swelling, 08/02/17) Amoxicillin (Verified Allergy, Mild, Nausea, 08/02/17) Oxycodone (Verified Allergy, Unknown, HIVES, 08/02/17) Physical Exam Vital Signs Date Time Temp Pulse Resp B/P (MAP) Pulse Ox O2 Delivery O2 Flow Rate FiO2 09/22/17 02:33 73 18 163/94 97 Room Air 09/22/17 01:49 36.3 75 20 174/112 93 Room Air Physical Exam Vital signs reviewed. General: Chronically ill-appearing, obese, anxious appearing, significant discomfort. HEENT: No scleral icterus, PERRLA, neck supple. Atraumatic. Cardiovascular: Regular rate and rhythm, no extra sounds. Pulmonary: Clear to auscultation bilaterally, normal work of breathing. Musculoskeletal: Atraumatic, no peripheral edema. Tender to palpation to the trapezius and anterior chest wall. No palpable deformity. ROM is limited secondary to pain. Neurovascularly intact distally. Neurologic: Patient awake alert and oriented x 3. Skin: Warm, dry, no rash Medical Decision & Procedures Medications Administered Medications (Trade) Dose Ordered Sig/Jerel Route Start Time Stop Time Status Last Admin Dose Admin Hydromorphone HCl (Dilaudid Inj) 2 mg NOW STAT IM 09/22/17 01:58 09/22/17 02:00 DC 09/22/17 02:10 2 MG Ketorolac Tromethamine (Toradol Inj) 60 mg NOW STAT IM 09/22/17 02:01 09/22/17 02:02 DC 09/22/17 02:11 60 MG ED Course 0156: Past medical records reviewed. The patient was evaluated in room A10. A complete history and physical examination was performed. 0158: Ordered Dilaudid Inj 2 mg IM. 0201: Ordered Toradol Inj 60 mg IM. 0217: The patient noticed a bump on her arm that she would like me to look at. I reexamined the patient. 0249: Upon reevaluation, the patient appeared to have improvement of her symptoms. Her blood pressure is down from 200 to 160. I discussed findings with her. She verbalized agreement of the treatment plan. The patient was discharged home. Medical Decision Etiologies such as fracture, dislocation, neurovascular compromise, compartment syndrome, soft tissue injury, as well as others were entertained. This patient was evaluated and appeared to be in no significant distress. Patient seems to have run out of her Dilaudid 4 days ago. She states her last dose was . Patient's blood pressure is elevated. She was given 2 mg of IM Dilaudid and 60 mg of IM Toradol. She did have significant relief from her symptoms. Patient states her prescriptions at the pharmacy for pickup tomorrow. At this time I think she is safe for discharge to the family member at the bedside. The patient was informed of the findings. She was discharged and will follow-up with her pharmacy tomorrow for prescription renewal. She will also see her primary care physician in follow-up. [place] Drug Monitoring Program Search Results: patient reviewed within database Drug Monitoring Findings: Monthly Dilaudid prescriptions provided by PCP. Last filled August 19. Medication Reconcilliation Current Medication List: was personally reviewed by me Blood Pressure Screening Patient's blood pressure: Elevated blood pressure Blood pressure disposition: Elevated BP felt to be situational Impression Primary Impression: Narcotic withdrawal Additional Impression: Chronic right shoulder pain Scribe Attestation The scribe's documentation has been prepared under my direction and personally reviewed by me in its entirety. I confirm that the note above accurately reflects all work, treatment, procedures, and medical decision making performed by me. Departure Information Dispostion Home / Self-Care Referrals Naresh Bro M.D. (PCP) Forms HOME CARE DOCUMENTATION FORM, IMPORTANT VISIT INFORMATION Patient Instructions My [facility] [address] Additional Instructions Diagnosis: Right shoulder pain, narcotic withdrawal Continue pain medications as prescribed. Follow up with your doctor this week for reevaluation. Return to the ED for worsening of symptoms or any medical concerns. Problem Qualifiers
== END 2017-09-22 02:54 | disposition home or self-care (01) ==
LOC: C.EDB 01:45 → C.EDA 02:54
DX: F19.20 Other psychoactive substance dependence, uncomplicated (principal); M25.511 Pain in right shoulder; K74.60 Unspecified cirrhosis of liver; D64.9 Anemia, unspecified; D50.9 Iron deficiency anemia, unspecified; Z87.11 Personal history of peptic ulcer disease; Z79.01 Long term (current) use of anticoagulants; Z79.899 Other long term (current) drug therapy

== ENCOUNTER 2018-06-03 21:07 | Emergency (ER) | payer OTHER ==
[~2018-06-03] VITALS: Ht 160 cm; Wt 115.8 kg
[~2018-06-03 21:07] MED LIST changes: -DMD20 PO; +TORS20TA3 PO
[2018-06-03 21:19] VITALS: TEMP 36.9; Ht 160 cm; Wt 115.8 kg
--- NOTE | 2018-06-03 21:40 | DIAGNOSTIC IMAGING REPORT ---
SINGLE VIEW CHEST CLINICAL HISTORY: Atypical chest pain. FINDINGS: An AP, portable, upright chest radiograph is compared to study dated 10/08/2015. The examination is degraded by portable technique and patient rotation. The heart is top normal for projection. The mediastinal contour is within normal limits. The lungs and pleural spaces are clear. No pneumothorax is seen. The skeletal structures are osteopenic. The bony thorax is grossly intact. A right shoulder arthroplasty is partially imaged. IMPRESSION: No acute cardiopulmonary abnormality. Electronically signed by: Oscar Rainey M.D. 06/03/2018 9:39 PM Dictated Date/Time: 06/03/2018 9:37 PM
--- NOTE | 2018-06-03 21:48 | EMERGENCY ROOM VISIT NOTE ---
History Report prepared by Sushma: Luh Chavez Under the Supervision of: Dr. Tung Quintana M.D. First contact with patient: 21:09 Stated Complaint: FALL History of Present Illness The patient is a 58 year old female who presents to the Emergency Room with complaints of an episode of falling that occurred just prior to arrival. Per EMS , the patient experienced a ground-level fall when the patient was making dinner. EMS notes the patient felt dizzy before she fell. EMS also notes that the patient's right pupil is slightly more dilated than her left pupil and that the patient is on Coumadin for A Fib. The patient claims that she did not lose consciousness or hit her head. She states that she could not get up by herself because she cannot bend her right knee secondary to an antibiotic spacer in her right knee that was placed 2 years ago. She states she also has an antibiotic spacer in her right shoulder. The patient denies any recent sickness, numbness, chest pain, shortness of breath, fever, abdominal pain, back pain. The patient notes that she lives by herself and falls "more often than I'd like to tell you about." She also notes that she has neuropathy. Source of History: patient Onset: just prior to arrival Position: other (generalized) Quality: other (fall) Timing: other (episode) Associated Symptoms: No LOC, No fevers, No chest pain, No SOB, No abdominal pain, No back pain, No numbness Note: additional symptoms: dizziness, dilated right pupil Review of Systems See HPI for pertinent positives & negatives. A total of 10 systems reviewed and were otherwise negative. Past Medical & Surgical Medical Problems: (1) Acute renal failure (ARF) (2) Anemia, iron deficiency (3) Atrial fibrillation (4) Cirrhosis (5) Gastric peptic ulcer (6) gatro gastic fistulae (7) Hypoalbuminemia (8) Hyponatremia (9) Neuropathy (10) Pyuria (11) Weakness Old medical records were reviewed. Nurse's notes were reviewed and I agree with. Family History No pertinent family history Social History Smoking Status: Never Smoker Alcohol Use: none, other Drug Use: none Marital Status: Housing Status: lives with family Occupation Status: disabled Current/Historical Medications Scheduled Cholecalciferol (Vitamin D), 4,000 PO DAILY Cyanocobalamin (Vitamin B-12), 1,000 MCG PO DAILY Escitalopram (Lexapro), 10 MG PO DAILY Ferrous Sulfate (Ferrous Sulfate), 5 ML PO DAILY Gabapentin (Neurontin), 800 MG PO BID Lactobacillus-Inulin (Culturelle), 1 CAP PO BID Lactulose (Chronulac), 45 ML PO BID Levothyroxine Sodium (Levothyroxine Sodium), 75 MCG PO QAM Magnesium Oxide (Mag-Ox), 400 MG PO BID Multivitamins/Minerals (Mvi With Minerals), 1 TAB PO DAILY Pantoprazole (Pantoprazole Sodium), 40 MG PO BID Rifaximin (Xifaxan), 550 MG PO BID Torsemide (Demadex), 40 MG PO DAILY Warfarin Sodium (Coumadin), 6 MG PO DAILY Zinc Sulfate (Zinc Sulfate), 220 MG PO DAILY Scheduled PRN Hydromorphone HCl (Hydromorphone HCl), 2 MG PO TID PRN for Pain Ondansetron Hcl (Zofran), 4 MG PO Q8 PRN for Nausea Sucralfate (Carafate), 1 GM PO BID PRN for Indigestion Allergies Coded Allergies: Cefaclor (Verified Allergy, Intermediate, Swelling, 08/02/17) Amoxicillin (Verified Allergy, Mild, Nausea, 08/02/17) Oxycodone (Verified Allergy, Unknown, HIVES, 08/02/17) Physical Exam Vital Signs Date Time Temp Pulse Resp B/P (MAP) Pulse Ox O2 Delivery O2 Flow Rate FiO2 06/04/18 00:30 81 18 113/73 96 06/03/18 22:48 73 20 122/99 97 Room Air 06/03/18 21:19 36.9 72 18 125/90 96 Room Air Physical Exam General: Well developed well nourished non ill-appearing middle aged female in no acute distress, breathing comfortably on room air. Normal speech HEENT: Normal cephalic atraumatic. Pupils are equal round and reactive to light. Extraocular movements are intact. Oropharynx is pink with moist mucous membranes. No swelling of the mouth lips or tongue. Left conjunctiva has a small hemorrhage. Neck: Supple with a midline trachea. No meningeal signs or stiffness, no JVD or bruits. No Stridor. Chest: Clear to auscultation bilaterally. No wheezes or rhonchi. No increased work of breathing. Heart: regular rate and rhythm. Abdomen: Soft nontender, nondistended without rebound guarding or rigidity. Extremities: No cyanosis clubbing or edema. No calf tenderness or assymetry Unable to bend right knee secondary to spacer. Spine/Back. Non tender to palpation. No CVA tenderness Skin: Good turgor without rashes. Neurologic exam: Cranial nerves two through 12 are intact. Motor and sensation are intact and symmetrical throughout. Medical Decision & Procedures ER Provider Diagnostic Interpretation: Radiology results as stated below per my review and radiologist interpretation: SINGLE VIEW CHEST CLINICAL HISTORY: Atypical chest pain. FINDINGS: An AP, portable, upright chest radiograph is compared to study dated 10/08/2015. The examination is degraded by portable technique and patient rotation. The heart is top normal for projection. The mediastinal contour is within normal limits. The lungs and pleural spaces are clear. No pneumothorax is seen. The skeletal structures are osteopenic. The bony thorax is grossly intact. A right shoulder arthroplasty is partially imaged. IMPRESSION: No acute cardiopulmonary abnormality. Electronically signed by: Oscar Rainey M.D. 06/03/2018 9:39 PM Dictated Date/Time: 06/03/2018 9:[address] Head No ICH, mass effect or edema. No skull fracture. Radiologist: Jarad Gallegos MD. Laboratory Results 06/03/18 21:50 Red Blood Count 4.47, Mean Corpuscular Volume 89.5, Mean Corpuscular Hemoglobin 29.5, Mean Corpuscular Hemoglobin Concent 33.0, Mean Platelet Volume 9.9, Neutrophils (%) (Auto) 31.9, Lymphocytes (%) (Auto) 60.1, Monocytes (%) (Auto) 4.4, Eosinophils (%) (Auto) 2.5, Basophils (%) (Auto) 0.8, Neutrophils # (Auto) 1.87, Lymphocytes # (Auto) 3.54, Monocytes # (Auto) 0.26, Eosinophils # (Auto) 0.15, Basophils # (Auto) 0.05 06/03/18 21:50 Test 06/03/18 21:50 White Blood Count 5.89 K/uL (4.8-10.8) Red Blood Count 4.47 M/uL (4.2-5.4) Hemoglobin 13.2 g/dL (12.0-16.0) Hematocrit 40.0 % (37-47) Mean Corpuscular Volume 89.5 fL (80-100) Mean Corpuscular Hemoglobin 29.5 pg (25-34) Mean Corpuscular Hemoglobin Concent 33.0 g/dl (32-36) Platelet Count 244 K/uL (130-400) Mean Platelet Volume 9.9 fL (7.4-10.4) Neutrophils (%) (Auto) 31.9 % Lymphocytes (%) (Auto) 60.1 % Monocytes (%) (Auto) 4.4 % Eosinophils (%) (Auto) 2.5 % Basophils (%) (Auto) 0.8 % Neutrophils # (Auto) 1.87 K/uL (1.4-6.5) Lymphocytes # (Auto) 3.54 K/uL (1.2-3.4) Monocytes # (Auto) 0.26 K/uL (0.11-0.59) Eosinophils # (Auto) 0.15 K/uL (0-0.5) Basophils # (Auto) 0.05 K/uL (0-0.2) RDW Standard Deviation 49.4 fL (36.4-46.3) RDW Coefficient of Variation 15.2 % (11.5-14.5) Immature Granulocyte % (Auto) 0.3 % Immature Granulocyte # (Auto) 0.02 K/uL (0.00-0.02) Prothrombin Time 23.1 SECONDS (9.0-12.0) Prothromb Time International Ratio 2.2 (0.9-1.1) Activated Partial Thromboplast Time 39.2 SECONDS (21.0-31.0) Partial Thromboplastin Ratio 1.5 Anion Gap 7.0 mmol/L (3-11) Est Creatinine Clear Calc Drug Dose 74.1 ml/min Estimated GFR () 69.6 Estimated GFR (Non- 60.0 BUN/Creatinine Ratio 17.4 (10-20) Calcium Level 8.7 mg/dl (8.5-10.1) Total Bilirubin 0.3 mg/dl (0.2-1) Direct Bilirubin < 0.1 mg/dl (0-0.2) Aspartate Amino Transf (AST/SGOT) 25 U/L (15-37) Alanine Aminotransferase (ALT/SGPT) 50 U/L (12-78) Alkaline Phosphatase 214 U/L (45-117) Total Protein 8.0 gm/dl (6.4-8.2) Albumin 4.3 gm/dl (3.4-5.0) Lipase 52 U/L (73-393) Laboratory studies as stated above per my review. Medications Administered Medications (Trade) Dose Ordered Sig/Jerel Route Start Time Stop Time Status Last Admin Dose Admin Hydromorphone HCl (Dilaudid Inj) 1 mg NOW STAT IV 06/03/18 22:21 06/03/18 22:22 DC 06/03/18 22:49 1 MG ECG Per My Interpretation Indication: other (falling) Rate (beats per minute): 70 Rhythm: normal sinus Findings: no acute ischemic change, no ectopy Comparison ECG Date: 07/17/16 Change: Compared to previous EKG, the T waves are no longer flattened in the new EKG. ED Course 2110: Past medical records reviewed. The patient was evaluated in room C5, and a complete history and physical examination were performed. 2220: I reevaluated the patient and she told me that she would like medication for her pain. She states that she usually takes Dilaudid. Ordered Dilaudid Inj 1 mg IV. 0004: Upon reevaluation, the patient is stable. I discussed the results and treatment plan with her. She verbalized agreement of the treatment plan. The patient was discharged home. Medical Decision Differentials include, but are not limited to; traumatic injuries, head injury, arrhythmia, infection, electrolyte or metabolic abnormality. This patient comes in after suffering a fall. She tends to fall frequently. She has a spacer in her right knee and is unable to bend her knee. She says the problem is when she falls, she cannot get up and is to call 911 and she says that she did not want to come but they made her bring herself here. She is on Coumadin and she does not think she hit her head. she has a small s sub- conjunctival hemorrhage in the left sclera. She has no abdominal pain or chest pain. She has no new orthopedic findings or neurologic findings. I did a CAT scan of her head was unremarkable. EKG was unremarkable. She has nothing to suggest acute coronary syndrome. Chest x-ray was unremarkable. She has no acute electrolyte or metabolic abnormalities and nothing to suggest sepsis or infection. she was given IV Dilaudid 1 mg while she and has remained stable. She will be discharged home she strongly desires to go home encouraged to use a walker that she has be careful getting up and down. Have close follow-up with her doctor in the next couple days and return to the ER if: increasing pain, worsening of symptoms, fever or chills, any new problems or concerns. She is happy the plan and discharged to home Head Trauma GCS Score: 15 Medication Reconcilliation Current Medication List: was personally reviewed by me Blood Pressure Screening Patient's blood pressure: Normal blood pressure Blood pressure disposition: Did not require urgent referral Impression Primary Impression: Concussion Additional Impression: Fall Scribe Attestation The scribe's documentation has been prepared under my direction and personally reviewed by me in its entirety. I confirm that the note above accurately reflects all work, treatment, procedures, and medical decision making performed by me. Departure Information Dispostion Home / Self-Care Referrals Naresh Bro M.D. (PCP) Forms HOME CARE DOCUMENTATION FORM, IMPORTANT VISIT INFORMATION Additional Instructions Rest Drink plenty of fluids Becareful when getting up and down. Use walker REturn if: worsening of symptoms, increasing pain, fever, any new problems or concerns Follow-up with your doctor in 1-2 days for recheck Problem Qualifiers
[2018-06-03 22:06] LABS: HEMOGLOBIN 13.2 g/dL (12.0-16.0); MEAN CELL VOLUME 89.5 fL (80-100); MEAN CORPUSCULAR HEMOGLOBIN 29.5 pg (25-34); MEAN PLATELET VOLUME 9.9 fL (7.4-10.4); PLATELET COUNT 244 K/uL (130-400); RED CELL DISTRIBUTION WIDTH CV 15.2 % (11.5-14.5); RED CELL DISTRIBUTION WIDTH SD 49.4 fL (36.4-46.3); WHITE BLOOD COUNT 5.89 K/uL (4.8-10.8)
[2018-06-03] MEDS ORDERED: HYDROmorphone INJ 1 MG/ML SYR IV STA (22:21)
[2018-06-03 22:25] LABS: ALBUMIN 4.3 gm/dl (3.4-5.0); ALKALINE PHOSPHATASE 214 U/L (45-117); ALT/SGPT 50 U/L (12-78); AST/SGOT 25 U/L (15-37); BLOOD UREA NITROGEN 18 mg/dl (7-18); CALCIUM 8.7 mg/dl (8.5-10.1); CARBON DIOXIDE 26 mmol/L (21-32); CREATININE 1.04 mg/dl (0.60-1.20); GLUCOSE 83 mg/dl (70-99); LIPASE 52 U/L (73-393); POTASSIUM 4.9 mmol/L (3.5-5.1); SODIUM 137 mmol/L (136-145)
[2018-06-03 22:27] LABS: BASO % 0.8 %; BASO ABS # 0.05 K/uL (0-0.2); EOS % 2.5 %; EOS ABS # 0.15 K/uL (0-0.5); IG# 0.02 K/uL (0.00-0.02); LYMPH % 60.1 %; LYMPH ABS # 3.54 K/uL (1.2-3.4); MONO % 4.4 %; MONO ABS # 0.26 K/uL (0.11-0.59); NEUT % 31.9 %; NEUT ABS # 1.87 K/uL (1.4-6.5)
[2018-06-03 22:37] LABS: INR 2.2 (0.9-1.1); PTT PATIENT 39.2 SECONDS (21.0-31.0)
[2018-06-03] MEDS ORDERED: GABA800T PO (23:08)
[2018-06-03] MEDS ORDERED: ESCI10TA17 PO (23:08)
[2018-06-03] MEDS ORDERED: LACT10CA3 PO (23:08)
[2018-06-03] MEDS ORDERED: FERR220L PO (23:08)
[2018-06-03] MEDS ORDERED: CYAN10005 PO (23:08)
[2018-06-03] MEDS ORDERED: TORS20TA2 PO (23:08)
[2018-06-03] MEDS ORDERED: WARF4TAB PO (23:08)
[2018-06-03] MEDS ORDERED: ZINC1CAP PO (23:08)
[2018-06-03] MEDS ORDERED: MULT-513 PO (23:08)
[2018-06-03] MEDS ORDERED: CHOL20009 PO (23:08)
[2018-06-03] MEDS ORDERED: LACT10SO3 PO (23:08)
[2018-06-03] MEDS ORDERED: DLD/2 PO (23:08)
[2018-06-03] MEDS ORDERED: ONDA4TAB46 PO (23:08)
[2018-06-04 00:30] VITALS: BP 113/73; PULSE 81; O2SAT 96
--- NOTE | 2018-06-04 06:31 | DIAGNOSTIC IMAGING REPORT ---
HEAD WITHOUT CONTRAST (CT) CLINICAL HISTORY: 58 years-old Female with eval for trauma. Acute posttraumatic head injury TECHNIQUE: Multiple axial CT images of the head were obtained without contrast. A dose lowering technique was utilized adhering to the principles of ALARA. CT DOSE: 773.57 mGy.cm COMPARISON: None. FINDINGS: No acute intracranial hemorrhage, midline shift, intracranial mass, hydrocephalus, territorial ischemia or abnormal extra-axial collection. The calvarium is intact. The paranasal sinuses, mastoid air cells, and middle ear cavities are clear. IMPRESSION: No acute intracranial abnormality or calvarial fracture. The above report was generated using voice recognition software. It may contain grammatical, syntax or spelling errors. Electronically signed by: Renan Campos M.D. 06/04/2018 6:30 AM Dictated Date/Time: 06/04/2018 6:27 AM
== END 2018-06-04 00:30 | disposition home or self-care (01) ==
LOC: EDBD 21:07 → C.EDC 21:08
DX: S06.0X9A Concussion with loss of consciousness of unspecified duration, initial encounter (principal); I48.91 Unspecified atrial fibrillation; Z79.01 Long term (current) use of anticoagulants; Z79.899 Other long term (current) drug therapy; Z88.1 Allergy status to other antibiotic agents; Z88.5 Allergy status to narcotic agent; W19.XXXA Unspecified fall, initial encounter

== ENCOUNTER 2020-03-19 10:42 | Inpatient (IN) ==
--- NOTE | 2020-03-19 11:06 | Emergency Department Note ---
Impression & Plan Cellulitis, Perirectal abscess, Anemia ED Provider Note NAME: ROMULO JARVIS AGE: 60 SEX: F : 1960 ARRIVES VIA: Ambulance INFORMANT: Patient ED PROVIDER(S): Willard Ott DO CHIEF COMPLAINT: Rectal pain HPI: Patient is a 60-year-old female who presents to the ER following a fall a week ago. She notes that she was reaching to get something out of bed and fell forward and hit her head. She denies any loss consciousness. She notes that she has had a mild headache since then. She does take Coumadin. Her levels have been appropriate. She also admits to swelling at her gluteus which is been present since this past Thursday. She notes the pain has been gradually getting worse. She notes that she was brought in by EMS and just prior to arrival she noticed that it was draining getting smaller. She is concerned that she may have a hemorrhoid. She denies any fevers cough or shortness of breath. No other exacerbating or remitting factors. ROS: See above HPI for pertinent positives & negatives. A total of 10 systems re viewed and were otherwise negative. PAST MEDICAL HISTORY:See Below PAST SURGICAL HISTORY:See Below FAMILY HISTORY:See Below SOCIAL HISTORY:See Below HOME MEDICATIONS:See Below ALLERGIES:See Below VITALS:See Below PHYSICAL EXAMINATION: GENERAL: Sitting up in bed, obese, disheveled HEAD: Bruising over the left side of face EYE EXAM: normal conjunctiva. PERRL and EOM's grossly intact. OROPHARYNX: no exudate, no erythema, lips, buccal mucosa, and tongue normal and mucous membranes are moist NECK: supple, no nuchal rigidity, no adenopathy, non-tender LUNGS: Clear to auscultation. Normal chest wall mechanics HEART: no murmurs, S1 normal and S2 normal ABDOMEN: abdomen soft, non-tender, normo-active bowel sounds, no masses, no rebound or guarding. BACK: Back is symmetrical on inspection and there is no deformity, no midline tenderness, no CVA tenderness. RECTAL: Erythema and fluctuance on the left gluteal fold which is draining dark blood with green purulent material. Erythema was tracking anteriorly to the left labia majora. SKIN: no rashes and no bruising UPPER EXTREMITIES: upper extremities are grossly normal. LOWER EXTREMITIES: No pitting edema. NEURO EXAM: Normal sensorium, cranial nerves II-XII grossly intact, normal speech, no gross weakness of arms, no gross weakness of legs. MEDICAL DECISION MAKING: Patient is a 60-year-old female who presents the ER for headache which is been present for the past week following a fall. She is also complaining of swelling on her left gluteus which is been gradually getting worse for the past 3 to 4 days. Denies any fevers. IV was established blood work was obtained. Labs show leukocytosis 12,000. There is anemia at 9.3 thousand. INR was therapeutic 2. BMP with mild hypokalemia. LFTs bilirubin was unremarkable. Lipase was normal. CT shows an abscess along with extensive cellulitis. Patient was given IV antibiotics to include vancomycin along with Flagyl secondary to allergies. The abscess was already partially draining and a large amount of purulent material in combination with dark blood was drained by myself at bedside. Patient tolerated procedure well. She was updated admitted to the hospitalist for further work-up. Triage Nursing notes reviewed. Prior medical records reviewed Vital Signs: reviewed and remarkable for hypertensive Differential diagnosis: Differential diagnosis includes etiologies such as cellulitis, abscess, MRSA infection, DVT, necrotizing fasciitis, dermatitis, drug eruption, as well as others were entertained. ER treatment provided: See below Diagnostics interpreted by me: ECG: none Cardiac Monitoring: An order was placed for continuous cardiac monitoring. The monitor shows a rate of 85 with sinus rhythm. Laboratory studies: As stated above and show below. Imaging studies: CT abdomen pelvis shows extensive cellulitis with a likely abscess. Consultation(s): Discussed with Katherine dougherty from the [facility] service. ED COURSE: Procedures: Verbal consent was obtained at bedside. With female nurse at bedside a large amount of pressure was applied to the left gluteus and about 15 mL's of dark blood and green purulent material drained from the already open wound. Patient tolerated procedure well. Critical Care: None Past Med/Surg History Medical History Anemia, iron deficiency Ascites Cirrhosis Depression Gastric peptic ulcer Hypothyroidism Neuropathy of both feet On anticoagulant therapy warfarin daily Paroxysmal A-fib Surgical History History of arthrodesis left leg History of arthroplasty of right shoulder unable to lift arm after sx History of arthroscopy of left knee x2 History of arthroscopy of right knee x7 History of cardiac cath 2012--no stents History of cholecystectomy History of colonoscopy History of esophagogastroduodenoscopy (EGD) History of gastric bypass History of open reduction and internal fixation (ORIF) procedure left tib/fib fx--hardware in place History of surgery on extremity 2017--right leg hardware in place per pt a "fusion of her leg" History of tooth extraction all teeth removed History of total right knee replacement (TKR) 2006 Family History Sister Breast cancer Mother Hypertension Diabetes Other No family history of adverse response to anesthesia Social History Preferred Language: Scottish Communication Ability: Effective Business Solutions Consultant Required: No Beliefs That Will Affect Care: None Current Living Situation: Alone Feels Safe at Home: Yes Smoking Status: Never smoker Second Hand Exposure: Yes (father smoked) ; Hx Alcohol Use: Yes Alcohol type: wine Hx Substance Use: No Allergies Allergies Allergy/AdvReac Type Severity Reaction Status Date / Time cefaclor Allergy Intermediate Swelling Verified 03/19/20 11:40 oxycodone Allergy Intermediate HIVES Verified 03/19/20 11:40 amoxicillin Allergy Mild Nausea Verified 03/19/20 11:40 Home Meds Home Medications Medication Instructions Recorded Confirmed cyanocobalamin (vitamin B-12) 1,000 mcg PO QAM 08/22/18 03/19/20 [Vitamin B-12] hydromorphone 2 mg PO TID PRN 08/22/18 03/19/20 levothyroxine 75 mcg PO QAM 08/22/18 03/19/20 magnesium oxide 400 mg PO BID 08/22/18 03/19/20 multivitamin 1 tab PO QAM 08/22/18 03/19/20 ondansetron HCl [Zofran] 4 mg PO Q8 PRN 08/22/18 03/19/20 sucralfate [Carafate] 1 g PO BID PRN 08/22/18 03/19/20 torsemide [Demadex] 20 mg PO QAM 08/22/18 03/19/20 zinc sulfate 220 mg PO DAILY 08/22/18 03/19/20 cholecalciferol (vitamin D3) 2,000 unit PO BID 10/03/18 03/19/20 ferrous sulfate 220 mg PO DAILY 10/03/18 03/19/20 rifaximin 550 mg PO BID 10/03/18 03/19/20 warfarin 6 mg PO SUTUTH 12/11/18 03/19/20 duloxetine [Cymbalta] 60 mg PO QAM 07/19/19 03/19/20 lactulose 45 ml PO DAILY PRN 07/19/19 03/19/20 pantoprazole 40 mg PO BID 07/19/19 03/19/20 gabapentin 600 mg PO BID 03/19/20 03/19/20 warfarin 10 mg PO MOWEFRSA 03/19/20 03/19/20 Results & Data (ED) Vital Signs Vital Signs - 24 hr 03/19/20 10:48 03/19/20 12:30 03/19/20 13:00 Temperature 36.9 C Temperature Source Oral Pulse Rate 88 Pulse Rate [Apical] 92 H 83 Pulse Rhythm Regular Pulse Rhythm [Apical] Regular Regular Pulse Strength Normal Respiratory Rate 18 20 20 Respiratory Effort / Characteristics Non-Labored Spontaneous Non-Labored Spontaneous Non-Labored Spontaneous Respiratory Depth Normal Normal Normal Respiratory Pattern Regular Regular Regular Blood Pressure 137/90 Blood Pressure [Right Arm] 153/90 H 130/84 Blood Pressure Mean 105 Blood Pressure Mean [Right Arm] 111 99 Pulse Oximetry 99 100 95 Oxygen Delivery Method Room Air Room Air Room Air Sepsis Recent Fever Within 48 Hours No Sepsis New/Unexplained Change in Mental Status No Sepsis Action Taken by Nursing No Action Required 03/19/20 14:02 Temperature Temperature Source Pulse Rate Pulse Rate [Apical] 77 Pulse Rhythm Pulse Rhythm [Apical] Regular Pulse Strength Respiratory Rate 19 Respiratory Effort / Characteristics Non-Labored Spontaneous Respiratory Depth Normal Respiratory Pattern Regular Blood Pressure Blood Pressure [Right Arm] 149/94 H Blood Pressure Mean Blood Pressure Mean [Right Arm] 112 Pulse Oximetry 95 Oxygen Delivery Method Room Air Sepsis Recent Fever Within 48 Hours Sepsis New/Unexplained Change in Mental Status Sepsis Action Taken by Nursing Laboratory Data Result diagrams: 03/19/20 11:20 03/19/20 11:20 Lab Results 03/19/20 03/19/20 03/19/20 Range/Units 11:20 11:20 11:20 WBC 12.67 H (4.8-10.8) K/uL RBC 3.08 L (4.2-5.4) M/uL Hgb 9.3 L (12.0-16.0) g/dL Hct 28.6 L (37-47) % MCV 92.9 (80-100) fL MCH 30.2 (25-34) pg MCHC 32.5 (32-36) g/dL RDW Std Deviation 53.4 H (36.4-46.3) fL RDW Coeff of Jake 15.7 H (11.5-14.5) % Plt Count 212 (130-400) K/uL MPV 10.0 (7.4-10.4) fL Immature Gran % (Auto) 0.6 % Neut % (Auto) 77.8 % Lymph % (Auto) 10.7 % Weber % (Auto) 10.6 % Eos % (Auto) 0.2 % Baso % (Auto) 0.1 % Immature Gran # (Auto) 0.07 H (0.00-0.02) K/uL Neut # (Auto) 9.87 H (1.4-6.5) K/uL Lymph # (Auto) 1.35 (1.2-3.4) K/uL Weber # (Auto) 1.34 H (0.11-0.59) K/uL Eos # (Auto) 0.03 (0-0.5) K/uL Baso # (Auto) 0.01 (0-0.2) K/uL PT 19.0 H (9.0-12.0) Seconds INR 1.9 H (0.9-1.1) Sodium 133 L (136-145) mmol/L Potassium 3.1 L (3.5-5.1) mmol/L Chloride 98 (98-107) mmol/L Carbon Dioxide 25 (21-32) mmol/L Anion Gap 10.0 (3-11) BUN 9 (7-18) mg/dl Creatinine 0.70 (0.6-1.2) mg/dl Est Cr Clr Drug Dosing 100.9 ml/min Est GFR ( Amer) 110.7 Est GFR (Non-Af Amer) 95.5 BUN/Creatinine Ratio 12.2 (10-20) Glucose 107 H (70-99) mg/dl Calcium 8.4 L (8.5-10.1) mg/dl Magnesium (1.8-2.4) mg/dl Total Bilirubin 0.6 (0.2-1) mg/dl AST 34 (15-37) U/L ALT 27 (12-78) U/L Alkaline Phosphatase 199 H (45-117) U/L Total Protein 5.5 L (6.4-8.2) gm/dl Albumin 2.3 L (3.4-5.0) gm/dl Globulin 3.2 (2.5-4.0) gm/dl Albumin/Globulin Ratio 0.7 L (0.9-2) Lipase 23 L (73-393) U/L 03/19/20 Range/Units 11:20 WBC (4.8-10.8) K/uL RBC (4.2-5.4) M/uL Hgb (12.0-16.0) g/dL Hct (37-47) % MCV (80-100) fL MCH (25-34) pg MCHC (32-36) g/dL RDW Std Deviation (36.4-46.3) fL RDW Coeff of Jake (11.5-14.5) % Plt Count (130-400) K/uL MPV (7.4-10.4) fL Immature Gran % (Auto) % Neut % (Auto) % Lymph % (Auto) % Weber % (Auto) % Eos % (Auto) % Baso % (Auto) % Immature Gran # (Auto) (0.00-0.02) K/uL Neut # (Auto) (1.4-6.5) K/uL Lymph # (Auto) (1.2-3.4) K/uL Weber # (Auto) (0.11-0.59) K/uL Eos # (Auto) (0-0.5) K/uL Baso # (Auto) (0-0.2) K/uL PT (9.0-12.0) Seconds INR (0.9-1.1) Sodium (136-145) mmol/L Potassium (3.5-5.1) mmol/L Chloride (98-107) mmol/L Carbon Dioxide (21-32) mmol/L Anion Gap (3-11) BUN (7-18) mg/dl Creatinine (0.6-1.2) mg/dl Est Cr Clr Drug Dosing ml/min Est GFR ( Amer) Est GFR (Non-Af Amer) BUN/Creatinine Ratio (10-20) Glucose (70-99) mg/dl Calcium (8.5-10.1) mg/dl Magnesium 1.9 (1.8-2.4) mg/dl Total Bilirubin (0.2-1) mg/dl AST (15-37) U/L ALT (12-78) U/L Alkaline Phosphatase (45-117) U/L Total Protein (6.4-8.2) gm/dl Albumin (3.4-5.0) gm/dl Globulin (2.5-4.0) gm/dl Albumin/Globulin Ratio (0.9-2) Lipase (73-393) U/L Administered Medications Vancomycin HCl 2,500 mg/ (Sodium Chloride) 550 mls @ 200 mls/hr IV NOW ONE Stop: 03/19/20 15:39 Last Admin: 03/19/20 13:11 Dose: 200 mls/hr Documented by: [id number] Ioversol (Optiray 320 100ml) 93 ml IV ONCE PRN PRN Reason: Interaction Checking Stop: 03/23/20 12:32 Last Admin: 03/19/20 12:34 Dose: 93 ml Documented by: [id number] Discontinued Medications Metronidazole (Flagyl) 500 mg in 100 mls @ 100 mls/hr IV NOW STA Stop: 03/19/20 13:54 Last Infusion: 03/19/20 14:13 Dose: 0 mls/hr Documented by: [id number] Admin: 03/19/20 13:11 Dose: 100 mls/hr Documented by: [id number] Discharge Plan Visit Data Chief Complaint: Rectal Pain ED Provider: Willard Ott Discharge Problem: Cellulitis, Perirectal abscess, Anemia Forms Stand Alone Forms: My [facility] Prescriptions Prescriptions: No Action rifaximin 550 mg tablet 550 mg PO BID RF: 0 cholecalciferol (vitamin D3) 2,000 unit capsule 2,000 unit PO BID RF: 0 ferrous sulfate 220 mg (44 mg iron)/5 mL elixir 220 mg PO DAILY RF: 0 pantoprazole 40 mg Tablet,Delayed Release (Dr/Ec) 40 mg PO BID RF: 0 duloxetine [Cymbalta] 60 mg Capsule,Delayed Release(Dr/Ec) 60 mg PO QAM RF: 0 lactulose 10 gram/15 mL Solution 45 ml PO DAILY PRN (Reason: Constipation) RF: 0 multivitamin Tablet 1 tab PO QAM RF: 0 torsemide [Demadex] 20 mg Tablet 20 mg PO QAM RF: 0 sucralfate [Carafate] 1 gram Tablet 1 g PO BID PRN (Reason: Dyspepsia) RF: 0 ondansetron HCl [Zofran] 4 mg Tablet 4 mg PO Q8 PRN (Reason: Nausea) RF: 0 cyanocobalamin (vitamin B-12) [Vitamin B-12] 1,000 mcg Tablet 1,000 mcg PO QAM RF: 0 levothyroxine 75 mcg Tablet 75 mcg PO QAM RF: 0 zinc sulfate 220 mg Tablet 220 mg PO DAILY RF: 0 hydromorphone 2 mg Tablet 2 mg PO TID PRN (Reason: Pain) RF: 0 magnesium oxide 400 mg magnesium Tablet 400 mg PO BID RF: 0 warfarin 4 mg tablet 6 mg PO SUTUTH RF: 0 gabapentin 600 mg tablet 600 mg PO BID RF: 0 warfarin 4 mg tablet 10 mg PO MOWEFRSA RF: 0 Discharge Problem: Cellulitis Qualifiers: Site of cellulitis: unspecified site Qualified Code(s): L03.90 - Cellulitis, unspecified Anemia Qualifiers: Anemia type: unspecified type Qualified Code(s): D64.9 - Anemia, unspecified
[2020-03-19 11:37] LABS: Basophils # (auto) 0.01 K/uL (0-0.2); Basophils % (auto) 0.1 %; Eosinophils # (auto) 0.03 K/uL (0-0.5); Eosinophils % (auto) 0.2 %; Hematocrit (blood only) 28.6 % (37-47); Hemoglobin 9.3 g/dL (12.0-16.0); Immature Granulocytes # (auto) 0.07 K/uL (0.00-0.02); Immature Granulocytes % (auto) 0.6 %; Lymphocytes # (auto) 1.35 K/uL (1.2-3.4); Lymphocytes % (auto) 10.7 %; Mean Corpuscular Hemoglobin 30.2 pg (25-34); Mean Corpuscular Hgb Conc 32.5 g/dL (32-36); Mean Corpuscular Volume 92.9 fL (80-100); Monocytes # (auto) 1.34 K/uL (0.11-0.59); Monocytes % (auto) 10.6 %; Neutrophils # (auto) 9.87 K/uL (1.4-6.5); Neutrophils % (auto) 77.8 %; Platelet Count 212 K/uL (130-400); RDW Coefficient of Variation 15.7 % (11.5-14.5); RDW Standard Deviation 53.4 fL (36.4-46.3); Red Blood Count 3.08 M/uL (4.2-5.4); White Blood Count 12.67 K/uL (4.8-10.8)
[2020-03-19 11:54] LABS: Albumin Level 2.3 gm/dl (3.4-5.0); BUN Creatinine Ratio 12.2 (10-20); Calcium 8.4 mg/dl (8.5-10.1); Creatinine Clr Calc Pharmacy 100.9 ml/min; Est GFR (African American) 110.7; Est GFR (Non-African American) 95.5; Potassium 3.1 mmol/L (3.5-5.1)
[2020-03-19 11:58] LABS: Albumin Globulin Ratio 0.7 (0.9-2); Bilirubin,Total 0.6 mg/dl (0.2-1); Globulin 3.2 gm/dl (2.5-4.0); Total Protein 5.5 gm/dl (6.4-8.2)
[2020-03-19] MEDS ORDERED: IOVERSOL 100ml IV PRN (12:33)
--- NOTE | 2020-03-19 12:36 | CT Scan Report ---
CT OF THE HEAD WITHOUT CONTRAST CLINICAL HISTORY: Fall with head injury. COMPARISON STUDY: Head CT September 22, 2018. TECHNIQUE: Helical axial images of the head were obtained without IV contrast. Automated exposure con trol was utilized for the study. A dose lowering technique was utilized adhering to the principles o f ALARA. FINDINGS: No acute intracranial hemorrhage, midline shift or mass effect is present. The ventricular system is unremarkable. The basilar cisterns are patent. No extra-axial collections are present. Ther e are no findings to suggest acute dural sinus thrombosis or acute territorial infarct. No significan t calvarial abnormalities are present. Visualized portions of the sinuses and mastoid air cells are c lear. IMPRESSION: 1. No acute intracranial findings. 2. No calvarial fracture. ACT 112: Negative or not required by law. Electronically signed by: Vinod Salguero M.D. 03/19/2020 12:34 PM
[2020-03-19 12:39] LABS: INR 1.9 (0.9-1.1)
--- NOTE | 2020-03-19 12:47 | CT Scan Report ---
CT abd pelvis IV con only CLINICAL HISTORY: 60 years-old Female presenting with vomiting w/ large abscess of gluteal fold, fall . TECHNIQUE: Multidetector CT of the abdomen and pelvis was performed after the administration of intra venous contrast. IV contrast: 93 mL of Optiray 320. One or more dose lowering techniques were used co nsistent with the principles of ALARA (as low as reasonably achievable), including automatic exposure control, mA or kV adjustment to individual patient size, and/or use of iterative reconstruction. COMPARISON: None. CT DOSE (mGy.cm): The estimated cumulative dose is 1917.45 mGy.cm. FINDINGS: Senior Revenue Accountant topogram: Cholecystectomy clips. Lung bases: Borderline enlargement of the heart. Coronary artery calcification. No pericardial or ple ural effusion. No focal infiltrate or nodule at the lung bases. Liver: Normal morphology. Density suggestive of hepatic steatosis. No focal lesion. Patent hepatic va sculature. Biliary: Mild biliary ductal prominence likely a reservoir effect in the post cholecystectomy state. Gallbladder surgically absent. Pancreas: Severe parenchymal atrophy. Parenchymal calcification suggest a history of chronic pancreat itis. The appearance of the pancreatic duct consistent with this diagnosis. Spleen: Normal. Adrenal glands: Normal. Kidneys and ureters: Normal parenchyma. No nephrolithiasis or hydronephrosis. Mild urothelial thicken ing suggested bilaterally with mild distention of the ureters bilaterally. No obstructing calculi. Bladder: Incompletely evaluated secondary to underdistention. Mucosal hyperenhancement may be present . Pelvic organs: Uterus and ovaries normal. Bowel: Inflammatory change extending from the left aspect of the anus and fall the to involve the lef t ischiorectal fossa and extending along the left aspect of the gluteal cleft. Extensive phlegmonous changes. No rim-enhancing fluid collection is identified. Surrounding infiltration of the subcutaneou s fat is severe and extensive emanating to the left aspect of the mons pubis and in the left buttocks . A single focus of soft tissue emphysema is identified in the region of greatest phlegmonous change in the left medial gluteal region (series 5 image 48). Normal appearance of the rectum. Postsurgical changes of fracture, neck Silvio-en-Y gastric bypass. No bowel obstruction. Distal anastomosis patent. Small hiatal hernia. The appendix is normal. Peritoneal cavity: Trace free fluid in the pelvis. No free intraperitoneal gas. Lymph nodes: Prominent though largely subcentimeter bilateral inguinal lymph nodes. The largest lymph node is noted on the left measuring 11 mm in short axis. Enlarged left external iliac lymph node casey suring 9 mm in short axis. Smaller left common iliac and retroperitoneal lymph nodes likely also reac tive. Vasculature: Aorta and IVC patent and normal in caliber. Abdominal wall: Small fat-containing umbilical hernia. Mild body wall edema. Musculoskeletal: Degenerative changes of the spine. Asymmetric atrophy of the right psoas muscle. IMPRESSION: 1. Extensive inflammatory changes in the region of the left perineum emanating from the left anus an d left vulva and extensively involving the left medial gluteal fold. Severe surrounding cellulitis ev en more extensive, extending from the mons pubis anteriorly to the left buttock posteriorly. Phlegmon ous changes in the left perineum without focal abscess. Single focus of gas within the phlegmonous ch wesley may suggest developing abscess. No extensive soft tissue emphysema to suggest necrotizing fascii tis/Jessica gangrene, however, this is a clinical diagnosis. 2. Left inguinal lymphadenopathy presumably reactive. Additional reactive left external iliac lymph nodes. 3. Retrocolic Silvio-en-Y gastric bypass without evidence of complication. 4. Evidence of chronic pancreatitis. ACT 112: Negative or not required by law. Electronically signed by: Jeffrey Cervantes M.D. 03/19/2020 12:46 PM
[2020-03-19] MEDS ORDERED: metroNIDAZOLE 500 MG/100 ML BAG IV STA (12:55)
[2020-03-19] MEDS ORDERED: VANCOMYCIN HCL 2,500 MG in SODIUM CHLORIDE 0.9% 500 ML IV ONE (12:55)
[2020-03-19] MEDS ORDERED: VANCOMYCIN CONSULT ACTIVE PRN (12:55)
--- NOTE | 2020-03-19 15:01 | History & Physical Report ---
Date of Service March 19, 2020 Assessment & Plan (1) Perirectal abscess: -admit to med/surg -patient presenting from home with reports of increasing rectal edema and pain -in the ED, found to have an abscess within the left gluteal fold that has drained spontaneously along with surrounding cellulitis involving the perineum and left labia majora -does not appear septic -s/p Vanco and Flagyl in the ED, will continue with and add Ceftriaxone -wound and blood cultures -general surgery consult (2) Paroxysmal A-fib: -not on any rate or rhythm controlling medications -on Coumadin, INR 1.9; will hold Coumadin for now in the event patient needs to go to the OR (3) Cirrhosis: -appears compensated -continue diuretics and Xifaxan (4) DVT prophylaxis: -SCDs while INR < 2.0 History of Present Illness Chief Complaint: Rectal Pain Primary Care Provider: Naresh Bro MD 60 year old female with PMH cirrhosis, paroxysmal afib on Coumadin, hypothyroidism, and other problems listed below who presents to the ED with reports of rectal pain. Patient reports symptoms began about one week ago. She reports she felt as though she had a hemorrhoid however she has increasing swelling and pain around her rectum. She also has had associated poor appetite, nausea, and vomiting. Denies hematemesis and coffee ground emesis. No abdominal pain or diarrhea. Today, patient reports that when she sat down something had " burst" and there was a large amount of bloody drainage. She then called EMS and presented to the ED for further evaluation. Patient denies fever and chills. No chest pain or shortness of breath. Denies lightheadedness, dizziness, diaphoresis, and syncopal event. Reports falling out of bed last week while trying to reach for the remote on the floor and did strike her head. No loss of consciousness. She denies any urinary symptoms. In the ED, CT abd/pelvis is showing extensive inflammatory changes in the region of the left perineum emanating from the left anus and left vulva and extensively involving the left medial gluteal fold. Severe surrounding cellulitis even more extensive, extending from the mons pubis anteriorly to the left buttock posteriorly. Phlegmonous changes in the left perineum without focal abscess. Single focus of gas within the phlegmonous change may suggest developing abscess. Patient is hemodynamically stable. She was given IV Flagyl and IV Vanco. Allergies Allergy/AdvReac Type Severity Reaction Status Date / Time cefaclor Allergy Intermediate Swelling Verified 03/19/20 11:40 oxycodone Allergy Intermediate HIVES Verified 03/19/20 11:40 amoxicillin Allergy Mild Nausea Verified 03/19/20 11:40 Home Medications Home Medications Medication Instructions Recorded Confirmed Type cyanocobalamin (vitamin B-12) 1,000 mcg PO QAM 08/22/18 03/19/20 History [Vitamin B-12] hydromorphone 2 mg PO TID PRN 08/22/18 03/19/20 History levothyroxine 75 mcg PO QAM 08/22/18 03/19/20 History magnesium oxide 400 mg PO BID 08/22/18 03/19/20 History multivitamin 1 tab PO QAM 08/22/18 03/19/20 History ondansetron HCl [Zofran] 4 mg PO Q8 PRN 08/22/18 03/19/20 History sucralfate [Carafate] 1 g PO BID PRN 08/22/18 03/19/20 History torsemide [Demadex] 20 mg PO QAM 08/22/18 03/19/20 History zinc sulfate 220 mg PO DAILY 08/22/18 03/19/20 History cholecalciferol (vitamin D3) 2,000 unit PO BID 10/03/18 03/19/20 History ferrous sulfate 220 mg PO DAILY 10/03/18 03/19/20 History rifaximin 550 mg PO BID 10/03/18 03/19/20 History warfarin 6 mg PO SUTUTH 12/11/18 03/19/20 History duloxetine [Cymbalta] 60 mg PO QAM 07/19/19 03/19/20 History lactulose 45 ml PO DAILY PRN 07/19/19 03/19/20 History pantoprazole 40 mg PO BID 07/19/19 03/19/20 History gabapentin 600 mg PO BID 03/19/20 03/19/20 History warfarin 10 mg PO MOWEFRSA 03/19/20 03/19/20 History Past Med/Surg History Medical History Anemia, iron deficiency Ascites Cirrhosis Depression Gastric peptic ulcer Hypothyroidism Neuropathy of both feet On anticoagulant therapy warfarin daily Paroxysmal A-fib Surgical History History of arthrodesis left leg History of arthroplasty of right shoulder unable to lift arm after sx History of arthroscopy of left knee x2 History of arthroscopy of right knee x7 History of cardiac cath 2011--no stents History of cholecystectomy History of colonoscopy History of esophagogastroduodenoscopy (EGD) History of gastric bypass History of open reduction and internal fixation (ORIF) procedure left tib/fib fx--hardware in place History of surgery on extremity 2017--right leg hardware in place per pt a "fusion of her leg" History of tooth extraction all teeth removed History of total right knee replacement (TKR) 2006 Family History Sister Breast cancer Mother Hypertension Diabetes Other No family history of adverse response to anesthesia Social History Preferred Language: Citizen Of [place] Communication Ability: Effective 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 Beliefs That Will Affect Care: None Current Living Situation: Alone Feels Safe at Home: Yes Smoking Status: Never smoker Second Hand Exposure: Yes (father smoked) ; Hx Alcohol Use: Yes Alcohol type: wine Hx Substance Use: No Review of Systems Review of Systems: ROS per HPI, all other systems reviewed and negative Physical Exam Constitutional: WD/WN, vitals as above Eyes: PERRL, conjunctivae normal, anicteric sclerae ENMT: external ear and nose normal, oropharynx normal Respiratory: normal respiratory effort, lungs clear to auscultation Cardiovascular: Rate/Rhythm: regular rate and regular rhythm Vessels: normal peripheral pulses Extremities: no edema Gastrointestinal (Abdomen): normal bowel sounds, soft, nontender, no hepatosplenomegaly Musculoskeletal: no cyanosis or clubbing, extremities motor strength 5/5 Skin: left gluteal fold erythematous with open area draining dark bloody drainage, tender to touch; erythema extending into the perineum and involving the left labia majora Neurologic: PERRL, EOMI, accommodation nl, no face palsy, no dysarthria Psychiatric: A+Ox3, euthymic affect Results & Data Results & Data ([facility]) Vital Signs (Past 12 Hours) Vital Signs Temp Pulse Pulse Resp BP BP Pulse Ox 03/19/20 14:02 77 19 149/94 H 95 03/19/20 13:00 83 20 130/84 95 03/19/20 12:30 92 H 20 153/90 H 100 03/19/20 10:48 36.9 C 88 18 137/90 99 Laboratory Results Short CBC 03/19/20 Range/Units 11:20 WBC 12.67 H (4.8-10.8) K/uL Hgb 9.3 L (12.0-16.0) g/dL Hct 28.6 L (37-47) % Plt Count 212 (130-400) K/uL BMP 03/19/20 11:20 Sodium 133 L Potassium 3.1 L Chloride 98 Carbon Dioxide 25 BUN 9 Creatinine 0.70 Glucose 107 H Calcium 8.4 L Liver Function 03/19/20 Range/Units 11:20 Total Bilirubin 0.6 (0.2-1) mg/dl AST 34 (15-37) U/L ALT 27 (12-78) U/L Alkaline Phosphatase 199 H (45-117) U/L Albumin 2.3 L (3.4-5.0) gm/dl Diagnostic Findings CT ABD/PELVIS IMPRESSION: 1. Extensive inflammatory changes in the region of the left perineum emanating from the left anus and left vulva and extensively involving the left medial gluteal fold. Severe surrounding cellulitis even more extensive, extending from the mons pubis anteriorly to the left buttock posteriorly. Phlegmonous changes in the left perineum without focal abscess. Single focus of gas within the phlegmonous change may suggest developing abscess. No extensive soft tissue e mphysema to suggest necrotizing fasciitis/Jessica gangrene, however, this is a clinical diagnosis. 2. Left inguinal lymphadenopathy presumably reactive. Additional reactive left external iliac lymph nodes. 3. Retrocolic Silvio-en-Y gastric bypass without evidence of complication. 4. Evidence of chronic pancreatitis. HEAD CT IMPRESSION: 1. No acute intracranial findings. 2. No calvarial fracture. Code Status & VTE Plan Code Status Patient is a full code as per my discussion with her. VTE Prophylaxis Plan VTE Prophylaxis will be ordered: Yes Supervising Physician Co-Signing Physician Notes I, Dr. Rommel Junior, have seen and examined the patient Cherrie Ascencio with nurse practitioner and would like to comment that on Physical exam General: no acute distress HEENT: bruising of left upper face Lungs: clear to auscultation bilaterally Heart: regular rate Abdomen: soft, nontender, positive bowel sounds Pelvic/Buttock: erythema of anterior vaginal area and buttocks with bleeding from a blistered that ruptures from buttock Extremities: moves the extremities ASSESSMENT AND PLAN Intertriginous Dermatitis secondary to Obesity Cellulitis, possible left perineum abscess (Perirectal abscess) On Coumadin anticoagulation with Subtherapeutic INR for Paroxysmal Atrial Fibrillation Obesity History of Gastric Bypass Hypokalemia, mild -physical exam of erythema from Intertriginous Dermatitis secondary to Obesity and versus or in addition to Cellulitis of pelvic/buttock area. Possible left perineum abscess as per imaging -CT scan of Extensive inflammatory changes in the region of the left perineum emanating from the left anus and left vulva and extensively involving the left medial gluteal fold. Severe surrounding cellulitis even more extensive, extending from the mons pubis anteriorly to the left buttock posteriorly. Phlegmonous changes in the left perineum without focal abscess. Single focus of gas within the phlegmonous change may suggest developing abscess. No extensive soft tissue emphysema to suggest necrotizing fasciitis/Jessica gangrene Left inguinal lymphadenopathy presumably reactive. Additional reactive left external iliac lymph nodes -continue IV Flagyl and IV Vancomycin as started. Patient may benefit from topical antifungal or desiccant to external anterior pelvic area and buttocks -wound care -subtherapeutic INR on admission. Determine resumption of Coumadin based on general surgical evaluation -obtain general surgical consultation in case progression of abscess. Evidence of chronic pancreatitis. - Retrocolic Silvio-en-Y gastric bypass without evidence of complication. -Mild hypokalemia present on admission. Serum potassium 3.1. give potassium supplements to target serum potassium of 3.5 to 4 -agree with other assessment and plans as per nurse practitioner including management of blood sugars while inpatient -My colleague will be taking over the care of the patient as hospitalist starting on 03/20/2020
--- NOTE | 2020-03-19 16:04 | Surgery Consultation ---
Date of Consultation March 19, 2020 Assessment & Plan (1) Cellulitis: no drainable abcess on ct but I suspect this is a developing abcess. I do believe this self drained earlier. likely will need OR drainage tomorrow or thursday. will give a dose of vit K and recheck INR tomorrow. will also add diflucan to her regiment as has the appearance of a possible yeast contribution to the infection. NPO after midnight. (2) Perirectal abscess: History of Present Illness Attending Physician: Rommel Junior MD History of Present Illness pt with a couple day history of minoo-anal pain which progressed over a couple of days. the soreness/redness and and swelling now extends from the anal area anterior to the groin and mons pubis. it opened on it's own earlier today and drained a large amount of fluid and blood. this did help the pain and pressure considerably. Allergies Allergy/AdvReac Type Severity Reaction Status Date / Time cefaclor Allergy Intermediate Swelling Verified 03/19/20 11:40 oxycodone Allergy Intermediate HIVES Verified 03/19/20 11:40 amoxicillin Allergy Mild Nausea Verified 03/19/20 11:40 Home Medications Home Medications Medication Instructions Recorded Confirmed Type cyanocobalamin (vitamin B-12) 1,000 mcg PO QAM 08/22/18 03/19/20 History [Vitamin B-12] hydromorphone 2 mg PO TID PRN 08/22/18 03/19/20 History levothyroxine 75 mcg PO QAM 08/22/18 03/19/20 History magnesium oxide 400 mg PO BID 08/22/18 03/19/20 History multivitamin 1 tab PO QAM 08/22/18 03/19/20 History ondansetron HCl [Zofran] 4 mg PO Q8 PRN 08/22/18 03/19/20 History sucralfate [Carafate] 1 g PO BID PRN 08/22/18 03/19/20 History torsemide [Demadex] 20 mg PO QAM 08/22/18 03/19/20 History zinc sulfate 220 mg PO DAILY 08/22/18 03/19/20 History cholecalciferol (vitamin D3) 2,000 unit PO BID 10/03/18 03/19/20 History ferrous sulfate 220 mg PO DAILY 10/03/18 03/19/20 History rifaximin 550 mg PO BID 10/03/18 03/19/20 History warfarin 6 mg PO SUTUTH 12/11/18 03/19/20 History duloxetine [Cymbalta] 60 mg PO QAM 07/19/19 03/19/20 History lactulose 45 ml PO DAILY PRN 07/19/19 03/19/20 History pantoprazole 40 mg PO BID 07/19/19 03/19/20 History gabapentin 600 mg PO BID 03/19/20 03/19/20 History warfarin 10 mg PO MOWEFRSA 03/19/20 03/19/20 History Patient History Medical History Anemia, iron deficiency Ascites Cirrhosis Depression Gastric peptic ulcer Hypothyroidism Neuropathy of both feet On anticoagulant therapy warfarin daily Paroxysmal A-fib Surgical History History of arthrodesis left leg History of arthroplasty of right shoulder unable to lift arm after sx History of arthroscopy of left knee x2 History of arthroscopy of right knee x7 History of cardiac cath 2011--no stents History of cholecystectomy History of colonoscopy History of esophagogastroduodenoscopy (EGD) History of gastric bypass History of open reduction and internal fixation (ORIF) procedure left tib/fib fx--hardware in place History of surgery on extremity 2016--right leg hardware in place per pt a "fusion of her leg" History of tooth extraction all teeth removed History of total right knee replacement (TKR) 2006 Family History Sister Breast cancer Mother Hypertension Diabetes Other No family history of adverse response to anesthesia Social History Preferred Language: [place]i Communication Ability: Effective 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 Physical Exam Constitutional: WD/WN, vitals as above + morbidly obese; no acute distress and not ill appearing Eyes: PERRL, conjunctivae normal, anicteric sclerae EOM intact bilaterally ENMT: external ear and nose normal, oropharynx normal Ears: no hearing impairment Neck: trachea midline, no thyromegaly Respiratory: normal respiratory effort; no respiratory distress and does not use accessory muscles Cardiovascular: Rate/Rhythm: regular rate and regular rhythm Gastrointestinal (Abdomen): normal bowel sounds, soft, nontender, no hepatosplenomegaly large area of redness/firmness extending from the minoo- anal area anteriorly into the groin/labia region. no definite fluctuance but very firm/red/sore. Skin: no rashes, warm and dry Psychiatric: Orientation: alert, oriented x 3 and cooperative Results & Data Vital Signs (Past 12 Hours) Vital Signs Temp Pulse Pulse Resp BP BP Pulse Ox 03/19/20 14:02 77 19 149/94 H 95 03/19/20 13:00 83 20 130/84 95 03/19/20 12:30 92 H 20 153/90 H 100 03/19/20 10:48 36.9 C 88 18 137/90 99 PG Care Time/CCT Total # of Minutes Spent Total Time Spent with Patient: Total time spent is greater than 50% in coordination of care (as documented) at patient's floor/unit and/or counseling patient: Coding Level of Care Code 03618 Inpt Consult Level 4 Diagnoses Cellulitis L03.90 Site of cellulitis: unspecified site Perirectal abscess K61.1 (1) Cellulitis Site of cellulitis: unspecified site Qualified Code(s): L03.90 - Cellulitis, unspecified
[2020-03-19] MEDS ORDERED: FLUCONAZOLE 100 MG/50 ML BAG IV SCH (16:19)
[2020-03-19] MEDS ORDERED: ACETAMINOPHEN 325 MG TAB PO PRN (16:19)
--- NOTE | 2020-03-19 17:05 | Pharmacy Report ---
Pharmacy Abx Initial Consult - Date of Service March 19, 2020 - Pharmacy Dosing Scope Date of Consult: 03/19/2020 Consultation requested by: Katherine Jensen Pharmacy is consulted to initiate vancomycin IV dosing therapy, order appropriate labs and adjust drug dose/frequency. - Subjective The patient is a 60 year old F admitted on 03/19/20 13:22 with perirectal abscess - Objective Height: 5 ft 5 in Weight: 96.9 kg Vital Signs (Past 12hrs): Vital Signs Temp Pulse Pulse Pulse Resp BP BP 03/19/20 16:02 36.8 C 73 16 150/89 H 03/19/20 14:02 77 19 149/94 H 03/19/20 13:00 83 20 130/84 03/19/20 12:30 92 H 20 153/90 H 03/19/20 10:48 36.9 C 88 18 137/90 Pulse Ox 03/19/20 16:02 100 03/19/20 14:02 95 03/19/20 13:00 95 03/19/20 12:30 100 03/19/20 10:48 99 Lab Results (24hrs): Laboratory Tests (24 Hours) 03/19/20 03/19/20 11:20 11:20 WBC 12.67 H Neut # (Auto) 9.87 H Creatinine 0.70 Est Cr Clr Drug Dosing 100.9 Micro Results: 03/19/20 15:23 Aerobic Blood Culture - Pending Blood Anaerobic Blood Culture - Pending 03/19/20 15:16 Aerobic Blood Culture - Pending Blood Anaerobic Blood Culture - Pending - Assessment & Plan Assessment 60 year old F admitted with a perirectal abscess that self-drained earlier today. Will need to go to OR tomorrow to have more drainage of abscess. Plan vancomycin/Rocephin/Fluconazole/Flagyl for treatment of perirectal abscess Vancomycin IV * Estimated PK Parameters: Vd 0.65 L/kg, Hayden 0.087 hr-1, t1/2 7.9 hr * Loading dose: 2500 mg (26 mg/kg) * Maintenance dose: 1500 mg IV (15 mg/kg) every 12 hours * Goal trough level for skin infection : 15 mcg/mL * Trough ordered for 03/21/20 @ 1300 * A less than traditional extended dosing interval has been selected due to likelihood of drug accumulation in obese patient. Pharmacy will continue to follow and will adjust dose/frequency as necessary. Thank you.
[2020-03-19] MEDS ORDERED: PHYTONADIONE 5 MG in SODIUM CHLORIDE 0.9% 50 ML IV ONE (17:15)
[2020-03-19] MEDS ORDERED: POTASSIUM CHLORIDE 20 MEQ TABCR PO ONE (17:15)
[2020-03-19] MEDS ORDERED: cefTRIAXone SODIUM 2,000 MG in DEXTROSE 5% 50 ML IV SCH (18:00)
[2020-03-19] MEDS: FLUCONAZOLE 200 MG/100 ML BAG IV SCH ×2 (18:13→19:38)
[2020-03-19] MEDS: GABAPENTIN 600 MG TAB PO SCH (21:59)
[2020-03-19] MEDS: NYSTATIN POWDER 15GM BTL EXT SCH (21:59)
[2020-03-19] MEDS: MAGNESIUM OXIDE 400 MG TAB PO SCH (21:59)
[2020-03-19] MEDS: PANTOprazole 40 MG TAB PO SCH (22:00)
[2020-03-19] MEDS: RIFAXIMIN 550 MG TABLET PO SCH (22:00)
[2020-03-19] MEDS: metroNIDAZOLE 500 MG/100 ML BAG IV SCH (22:00)
[2020-03-20] MEDS: VANCOMYCIN HCL 1,500 MG in SODIUM CHLORIDE 0.9% 500 ML IV SCH ×2 (01:26→12:43)
[2020-03-20 03:27] LABS: Appearance Urine Clear (Clear); Bilirubin Urine Negative (Negative); Blood Urine Trace (Negative); Color Urine Yellow; Glucose Urine UA Negative (Negative); Ketones Urine Negative (Negative); Leukocyte Esterase Urine Negative (Negative); Nitrite Urine Negative (Negative); Protein Urine Negative (Negative); Specific Gravity Urine 1.011 (1.000-1.030); Urobilinogen Urine Negative (Negative)
[2020-03-20 03:54] LABS: Bacteria Urine Automated Negative (Negative); Cast Urine Automated 0 /lpf (0-5); RBC Urine Automated 0-4 /hpf (0-4)
[2020-03-20 05:37] LABS: Hematocrit (blood only) 31.3 % (37-47); Mean Corpuscular Hemoglobin 30.2 pg (25-34); Mean Corpuscular Hgb Conc 31.9 g/dL (32-36); Mean Corpuscular Volume 94.6 fL (80-100); Mean Platelet Volume 10.3 fL (7.4-10.4); Platelet Count 270 K/uL (130-400); RDW Standard Deviation 55.9 fL (36.4-46.3); Red Blood Count 3.31 M/uL (4.2-5.4); White Blood Count 7.49 K/uL (4.8-10.8)
[2020-03-20 05:46] LABS: INR 1.3 (0.9-1.1); Prothrombin Time 13.5 Seconds (9.0-12.0)
[2020-03-20 06:01] LABS: BUN Creatinine Ratio 9.7 (10-20); Calcium 8.5 mg/dl (8.5-10.1); Creatinine Clr Calc Pharmacy 83.1 ml/min; Est GFR (African American) 90.1; Est GFR (Non-African American) 77.7
[2020-03-20] MEDS: LEVOTHYROXINE SODIUM 75 MCG TABLET PO SCH (06:06)
[2020-03-20] MEDS: metroNIDAZOLE 500 MG/100 ML BAG IV SCH ×3 (06:06→22:28)
[2020-03-20] MEDS: PANTOprazole 40 MG TAB PO SCH ×2 (08:44→20:51)
[2020-03-20] MEDS: DULOXETINE HCL 60 MG CAP PO SCH (08:44)
[2020-03-20] MEDS: TORSEMIDE 20 MG TAB PO SCH (08:45)
[2020-03-20] MEDS: MAGNESIUM OXIDE 400 MG TAB PO SCH ×2 (08:45→20:51)
[2020-03-20] MEDS: GABAPENTIN 600 MG TAB PO SCH ×2 (08:45→20:51)
[2020-03-20] MEDS: RIFAXIMIN 550 MG TABLET PO SCH ×2 (08:46→20:52)
[2020-03-20] MEDS: FERROUS SULFATE ELIX 220MG/5ML PO SCH (08:46)
[2020-03-20] MEDS: NYSTATIN POWDER 15GM BTL EXT SCH ×2 (08:47→20:47)
--- NOTE | 2020-03-20 09:04 | Surgery Progress Note ---
Date of Service March 20, 2020 Assessment & Plan (1) Cellulitis: improving no need for I&D at this time continue IV abx, will defer decision to change abx or pretreat to medicine seen with Dr. Wood pt feeling much better. wbc normal. redness much improved still not out of the [place] for needing an I & D but will hold for now continue IV antibiotics and continue to monitor. Subjective feeling better, had rash last night Physical Exam Skin: erythema much improved, minimal additional drainage Results & Data Vital Signs (Past 12 Hours) Vital Signs Temp Pulse Resp BP Pulse Ox 03/20/20 07:34 36.7 C 67 18 164/87 H 100 03/19/20 23:07 36.9 C 73 15 151/91 H 100 PG Care Time/CCT Total # of Minutes Spent Total Time Spent with Patient: Total time spent is greater than 50% in coordination of care (as documented) at patient's floor/unit and/or counseling patient: Coding Level of Care Code 45305 Subseq Hosp Care Lvl 2 Diagnoses Cellulitis L03.90 Site of cellulitis: unspecified site (1) Cellulitis Site of cellulitis: unspecified site Qualified Code(s): L03.90 - Cellulitis, unspecified
[2020-03-20] MEDS ORDERED: AMPICILLIN/SULBACTAM SOD 3,000 MG in 0.9 % SODIUM CHLORIDE 100 ML IV SCH (10:00)
--- NOTE | 2020-03-20 16:40 | Hospitalist Progress Note ---
Date of Service March 20, 2020 Assessment & Plan (1) Perirectal abscess: -patient presenting from home with reports of increasing rectal edema and pain -Started with intravenous Vanco and Flagyl in the ED and ceftriaxone was added on admission -wound and blood cultures -Developed rash likely secondary to cephalosporin without any shortness of breath -Antibiotic changed to intravenous aztreonam and IV vancomycin and Flagyl were continued -general surgery consult-appreciate input. No IND for now -Clinically better (2) Paroxysmal A-fib: -not on any rate or rhythm controlling medications -on Coumadin, INR 1.9; will hold Coumadin for now in the event patient needs to go to the OR -Will start Coumadin (3) Cirrhosis: -appears compensated -continue diuretics and Xifaxan -No acute issues (4) DVT prophylaxis: -SCDs while INR < 2.0 Admission and Anticipated Discharge Date Admission Date: March 19, 2020 Subjective The patient was seen and examined in medical floor She has had generalized rash last night which has been improving with oral Benadryl Did not have any shortness of breath with it Still has some pain in the right buttock and adjoining area No fever no chills Review of Systems Review of Systems: All systems reviewed and are unremarkable except as noted below Gastrointestinal: Pain in right perirectal area Physical Exam Physical Exam: Lying in bed comfortably Constitutional: well developed and well nourished; no acute distress and not ill appearing Eyes: PERRL, conjunctivae normal, anicteric sclerae ENMT: external ear and nose normal, oropharynx normal Neck: trachea midline, no thyromegaly Respiratory: normal respiratory effort; no respiratory distress Auscultation: lungs clear to auscultation bilaterally Cardiovascular: Rate/Rhythm: regular rate and regular rhythm Heart Sounds: no murmur Gastrointestinal (Abdomen): Inspection/Auscultation: abdomen normal to inspection and normal bowel sounds; abdomen not distended Percussion/Palpation: abdomen soft; abdomen nontender And abscess with black eschar and surrounding inflammation noted over right perirectal area Musculoskeletal: No acute arthritis involving any joints Skin: Generalized rash has improved a lot Neurologic: moves all extremities; no focal motor deficits Lymphatic: no cervical or axillary lymphadenopathy Results & Data Results & Data ([facility]) Vital Signs (Past 12 Hours) Vital Signs Temp Pulse Resp BP Pulse Ox 05/19/20 15:17 36.7 C 75 16 120/73 98 03/20/20 07:34 36.7 C 67 18 164/87 H 100 Laboratory Results Short CBC 03/20/20 Range/Units 05:12 WBC 7.49 (4.8-10.8) K/uL Hgb 10.0 L (12.0-16.0) g/dL Hct 31.3 L (37-47) % Plt Count 270 (130-400) K/uL BMP 03/20/20 05:12 Sodium 136 Potassium 4.0 D Chloride 104 Carbon Dioxide 24 BUN 8 Creatinine 0.83 Glucose 88 Calcium 8.5 Urine 03/20/20 Range/Units 02:35 Urine Color Yellow Urine Appearance Clear (Clear) Urine pH 7.0 (4.5-7.5) Ur Specific [place] 1.011 (1.000-1.030) Urine Protein Negative (Negative) Urine Glucose (UA) Negative (Negative) Medications Administered Current Inpatient Medications Acetaminophen (Tylenol) 650 mg PO Q4H PRN PRN Reason: pain/fever Stop: 04/18/20 16:18 Diphenhydramine HCl (Benadryl Capsule) 25 mg PO Q6 PRN PRN Reason: Itching Stop: 04/19/20 12:34 Last Admin: 03/20/20 12:48 Dose: 25 mg Documented by: Duloxetine HCl (Cymbalta) 60 mg PO QAM [facility] Stop: 04/19/20 08:59 Last Admin: 03/20/20 08:44 Dose: 60 mg Documented by: Ferrous Sulfate (Feosol) 220 mg PO DAILY [facility] Stop: 04/19/20 08:59 Last Admin: 03/20/20 08:46 Dose: 220 mg Documented by: Gabapentin (Neurontin) 600 mg PO BID [facility] Stop: 04/18/20 20:59 Last Admin: 03/20/20 08:45 Dose: 600 mg Documented by: Metronidazole (Flagyl) 500 mg in 100 mls @ 100 mls/hr IV Q8H [facility] Stop: 03/26/20 16:18 Last Admin: 03/20/20 14:38 Dose: 100 mls/hr Documented by: Fluconazole (Diflucan) 200 mg in 100 mls @ 100 mls/hr IV Q24H [facility]; Protocol Stop: 03/25/20 19:59 Vancomycin HCl 1,500 mg/ (Sodium Chloride) 530 mls @ 200 mls/hr IV Q12H [facility] Stop: 03/26/20 23:59 Last Infusion: 03/20/20 13:17 Dose: 200 mls/hr Documented by: Aztreonam 2,000 mg/ Dextrose 110 mls @ 110 mls/hr IV Q8H [facility] Stop: 03/27/20 15:59 Levothyroxine Sodium (Synthroid) 75 mcg PO DAILYBB [facility] Stop: 04/19/20 06:29 Last Admin: 03/20/20 06:06 Dose: Not Given Documented by: Magnesium Oxide (Mag-Ox) 400 mg PO BID [facility] Stop: 04/18/20 20:59 Last Admin: 03/20/20 08:45 Dose: 400 mg Documented by: Miscellaneous Information (Consult) 1 ea N/A UD PRN PRN Reason: Consult Stop: 04/18/20 12:54 Nystatin (Mycostatin) 1 appln EXT BID [facility] Stop: 04/18/20 20:59 Last Admin: 03/20/20 08:47 Dose: Not Given Documented by: Pantoprazole Sodium (Protonix) 40 mg PO BID [facility] Stop: 04/18/20 20:59 Last Admin: 03/20/20 08:44 Dose: 40 mg Documented by: Rifaximin (Xifaxan) 550 mg PO BID [facility] Stop: 04/18/20 20:59 Last Admin: 03/20/20 08:46 Dose: 550 mg Documented by: Torsemide (Demadex) 20 mg PO QAM [facility] Stop: 04/19/20 08:59 Last Admin: 03/20/20 08:45 Dose: 20 mg Documented by:
[2020-03-20] MEDS ORDERED: SUCRALFATE 1 GM TAB PO PRN (16:41)
[2020-03-20] MEDS ORDERED: LACTULOSE SYRUP 30 GM/45 ML UDP PO PRN (16:41)
[2020-03-20] MEDS: AZTREONAM 2,000 MG in DEXTROSE 5% 100 ML IV SCH ×2 (17:52→23:37)
[2020-03-20] MEDS: WARFARIN SOD 6 MG TAB PO SCH (18:02)
[2020-03-20] MEDS: FLUCONAZOLE 200 MG/100 ML BAG IV SCH (19:13)
[2020-03-20] MEDS: HYDROmorphone HCL 2 MG TAB PO PRN (20:50)
[2020-03-20] MEDS: CHOLECALCIFEROL 1,000 UNITS 25 MCG TAB PO SCH (20:52)
[2020-03-21] MEDS: VANCOMYCIN HCL 1,500 MG in SODIUM CHLORIDE 0.9% 500 ML IV SCH (00:39)
[2020-03-21] MEDS: LEVOTHYROXINE SODIUM 75 MCG TABLET PO SCH (05:59)
[2020-03-21] MEDS: metroNIDAZOLE 500 MG/100 ML BAG IV SCH (06:00)
[2020-03-21 07:15] LABS: Basophils # (auto) 0.02 K/uL (0-0.2); Basophils % (auto) 0.4 %; Eosinophils % (auto) 3.8 %; Hematocrit (blood only) 35.7 % (37-47); Hemoglobin 11.4 g/dL (12.0-16.0); Immature Granulocytes # (auto) 0.08 K/uL (0.00-0.02); Immature Granulocytes % (auto) 1.5 %; Lymphocytes # (auto) 0.91 K/uL (1.2-3.4); Lymphocytes % (auto) 17.4 %; Mean Corpuscular Hemoglobin 29.7 pg (25-34); Mean Corpuscular Hgb Conc 31.9 g/dL (32-36); Mean Platelet Volume 10.2 fL (7.4-10.4); Monocytes # (auto) 0.64 K/uL (0.11-0.59); Monocytes % (auto) 12.2 %; Neutrophils # (auto) 3.39 K/uL (1.4-6.5); Neutrophils % (auto) 64.7 %; Platelet Count 312 K/uL (130-400); RDW Coefficient of Variation 15.9 % (11.5-14.5); RDW Standard Deviation 53.6 fL (36.4-46.3); Red Blood Count 3.84 M/uL (4.2-5.4); White Blood Count 5.24 K/uL (4.8-10.8)
[2020-03-21 07:27] LABS: INR 1.2 (0.9-1.1); Prothrombin Time 12.8 Seconds (9.0-12.0)
[2020-03-21 07:44] LABS: BUN Creatinine Ratio 8.4 (10-20); Calcium 8.8 mg/dl (8.5-10.1); Creatinine Clr Calc Pharmacy 65.7 ml/min; Est GFR (African American) 67.8; Est GFR (Non-African American) 58.5; Potassium 3.9 mmol/L (3.5-5.1)
[2020-03-21] MEDS: AZTREONAM 2,000 MG in DEXTROSE 5% 100 ML IV SCH ×3 (08:11→23:30)
[2020-03-21] MEDS: MULTIVITAMIN TAB PO SCH (08:37)
[2020-03-21] MEDS: TORSEMIDE 20 MG TAB PO SCH (08:37)
[2020-03-21] MEDS: PANTOprazole 40 MG TAB PO SCH ×2 (08:38→20:25)
[2020-03-21] MEDS: CHOLECALCIFEROL 1,000 UNITS 25 MCG TAB PO SCH ×2 (08:38→20:25)
[2020-03-21] MEDS: CYANOCOBALAMIN 500 MCG TABLET (VITAMIN B-12) PO SCH (08:39)
[2020-03-21] MEDS: GABAPENTIN 600 MG TAB PO SCH ×2 (08:39→20:24)
[2020-03-21] MEDS: NYSTATIN POWDER 15GM BTL EXT SCH ×2 (08:40→20:24)
[2020-03-21] MEDS: MAGNESIUM OXIDE 400 MG TAB PO SCH ×2 (08:40→20:24)
[2020-03-21] MEDS: DULOXETINE HCL 60 MG CAP PO SCH (08:40)
[2020-03-21] MEDS: ZINC SULFATE 220 MG CAPSULE PO SCH (08:41)
[2020-03-21] MEDS: RIFAXIMIN 550 MG TABLET PO SCH ×2 (08:41→20:26)
--- NOTE | 2020-03-21 09:10 | Surgery Progress Note ---
Date of Service March 21, 2020 Assessment & Plan (1) Perirectal abscess: clinically much improved does not appear that she will need surgical intervention will sign off. please call if we can be of assistance. Subjective pt seen. feeling much better. minimal pain or swelling yet. Physical Exam Physical Exam: alert. nad perineum dramatically improved. minimal remaining erythema Results & Data Vital Signs (Past 12 Hours) Vital Signs Temp Pulse Resp BP Pulse Ox 03/21/20 07:18 36.7 C 79 16 132/84 100 03/20/20 23:06 36.8 C 79 16 137/84 94 PG Care Time/CCT Total # of Minutes Spent Total Time Spent with Patient: Total time spent is greater than 50% in coordination of care (as documented) at patient's floor/unit and/or counseling patient: Coding Level of Care Code 02242 Subseq Hosp Care Lvl 2 Diagnoses Perirectal abscess K61.1
[2020-03-21] MEDS: FERROUS SULFATE ELIX 220MG/5ML PO SCH (10:19)
[2020-03-21] MEDS ORDERED: VANCOMYCIN TROUGH ONE (12:30)
--- NOTE | 2020-03-21 14:40 | Pharmacy Report ---
Pharmacy Abx Dose Short Note - Date of Service March 21, 2020 - Assessment & Plan Assessment 60 year old F receiving empiric vancomycin, aztreonam, and metronidazole for treatment of perirectal abscess Day # 3 of antimicrobial therapy. Microbiology: blood cultures x 2: no growth at 24 hours, left buttock: pinpoint growth (gram stain shows rare gram positive cocci) SCr trending up over past 3 days (0.7 -> 0.83 -> 1.05 mg/dL), WBC improving (12.7 -> 7.5 -> 5.2) Per surgery note: clinically much improved and unlikely to need surgical intervention Plan Broad spectrum antimicrobial coverage likely still warranted at this time Vancomycin * Trough level of 33 mcg/mL is supratherapeutic * Will hold vancomycin at this time * Goal trough level for this skin/soft tissue infection : 10 to 20 mcg/mL * Random level ordered for tomorrow morning Aztreonam * Continue 2 g IV q8h - continue to follow renal function * Originally ordered ceftriaxone, but developed rash Fluconazole * 200 mg IV q24h remains appropriate at this time Pharmacy will continue to follow and will adjust dose/frequency as necessary. Thank you.
[2020-03-21] MEDS: WARFARIN SOD 10 MG TAB PO SCH (15:58)
[2020-03-21] MEDS: FLUCONAZOLE 200 MG/100 ML BAG IV SCH (18:42)
--- NOTE | 2020-03-21 18:58 | Hospitalist Progress Note ---
Date of Service March 21, 2020 Assessment & Plan (1) Perirectal abscess: per Dr. Foley's notes -patient presenting from home with reports of increasing rectal edema and pain -Started with intravenous Vanco and Flagyl in the ED and ceftriaxone was added on admission -wound and blood cultures -Developed rash likely secondary to cephalosporin without any shortness of breath -Antibiotic changed to intravenous aztreonam and IV vancomycin and Flagyl were continued -general surgery consult-appreciate input. No IND for now -Clinically better 03/21 affected area continues to improve change Flagyl to Clinda for possible drug rash continue Azrtreonam, d/c Vanco ff up drainage and blood cultures (2) Paroxysmal A-fib: INR 1.2 continue coumadin (3) Cirrhosis: -appears compensated -continue diuretics and Xifaxan -No acute issues (4) DVT prophylaxis: -SCDs while INR < 2.0 Admission and Anticipated Discharge Date Admission Date: March 19, 2020 Subjective ff up for perineal cellulitis, abscess resting in bed, comfortable seen with [employer] at bedside states she feels improved compared to admission had increased rash this morning after flagyl Review of Systems Review of Systems: All systems reviewed & are unremarkable except as noted in HPI & below Physical Exam Physical Exam: General- oriented x 3, not in distress, speaks in sentences with no effort or accessory muscle use Eyes- anicteric Neck- no JVD Lungs- clear breath sounds bilaterally, no rales/wheezes Heart- normal rate, regular rhythm; no murmurs Abdomen- normal bowel sounds, nondistended, soft, nontender moderate erythema left perineal, gluteal fold, mons pubis, no edema Extremities- no pretibial edema, no calf tenderness Neuro- alert, oriented x 3; no gross focal neurologic deficits Skin- warm & dry Results & Data Results & Data ([facility]) Vital Signs (Past 12 Hours) Vital Signs Temp Pulse Resp BP Pulse Ox 03/21/20 16:23 36.6 C 79 18 100/66 97 03/21/20 07:18 36.7 C 79 16 132/84 100 Laboratory Results Laboratory Results - last 24 hr 03/21/20 03/21/20 03/21/20 06:48 06:48 06:48 WBC 5.24 RBC 3.84 L Hgb 11.4 L Hct 35.7 L MCV 93.0 MCH 29.7 MCHC 31.9 L RDW Std Deviation 53.6 H RDW Coeff of Jake 15.9 H Plt Count 312 MPV 10.2 Immature Gran % (Auto) 1.5 Neut % (Auto) 64.7 Lymph % (Auto) 17.4 [place] % (Auto) 12.2 Eos % (Auto) 3.8 Baso % (Auto) 0.4 Immature Gran # (Auto) 0.08 H Neut # (Auto) 3.39 Lymph # (Auto) 0.91 L [place] # (Auto) 0.64 H Eos # (Auto) 0.20 Baso # (Auto) 0.02 PT 12.8 H INR 1.2 H Sodium 135 L Potassium 3.9 Chloride 103 Carbon Dioxide 23 Anion Gap 9.0 BUN 9 Creatinine 1.05 Est Cr Clr Drug Dosing 65.7 Est GFR ( Amer) 67.8 Est GFR (Non-Af Amer) 58.5 BUN/Creatinine Ratio 8.4 L Glucose 89 Calcium 8.8 Vancomycin Trough 03/21/20 12:17 WBC RBC Hgb Hct MCV MCH MCHC RDW Std Deviation RDW Coeff of Jake Plt Count MPV Immature Gran % (Auto) Neut % (Auto) Lymph % (Auto) [place] % (Auto) Eos % (Auto) Baso % (Auto) Immature Gran # (Auto) Neut # (Auto) Lymph # (Auto) [place] # (Auto) Eos # (Auto) Baso # (Auto) PT INR Sodium Potassium Chloride Carbon Dioxide Anion Gap BUN Creatinine Est Cr Clr Drug Dosing Est GFR ( Amer) Est GFR (Non-Af Amer) BUN/Creatinine Ratio Glucose Calcium Vancomycin Trough 33.1
[2020-03-21] MEDS: CLINDAMYCIN 600 MG in DEXTROSE 5% 50 ML IV SCH (20:26)
[2020-03-21] MEDS: HYDROmorphone HCL 2 MG TAB PO PRN (23:30)
[2020-03-22] MEDS: LEVOTHYROXINE SODIUM 75 MCG TABLET PO SCH (05:10)
[2020-03-22] MEDS: CLINDAMYCIN 600 MG in DEXTROSE 5% 50 ML IV SCH ×3 (05:10→20:46)
[2020-03-22 07:25] LABS: Basophils # (auto) 0.01 K/uL (0-0.2); Basophils % (auto) 0.2 %; Eosinophils # (auto) 0.29 K/uL (0-0.5); Eosinophils % (auto) 5.5 %; Hematocrit (blood only) 29.3 % (37-47); Hemoglobin 9.4 g/dL (12.0-16.0); Immature Granulocytes # (auto) 0.09 K/uL (0.00-0.02); Immature Granulocytes % (auto) 1.7 %; Lymphocytes # (auto) 1.01 K/uL (1.2-3.4); Mean Corpuscular Hgb Conc 32.1 g/dL (32-36); Mean Corpuscular Volume 93.6 fL (80-100); Mean Platelet Volume 9.8 fL (7.4-10.4); Monocytes # (auto) 0.57 K/uL (0.11-0.59); Monocytes % (auto) 10.7 %; Neutrophils # (auto) 3.35 K/uL (1.4-6.5); Neutrophils % (auto) 62.9 %; Platelet Count 292 K/uL (130-400); RDW Coefficient of Variation 16.2 % (11.5-14.5); RDW Standard Deviation 55.2 fL (36.4-46.3); Red Blood Count 3.13 M/uL (4.2-5.4); White Blood Count 5.32 K/uL (4.8-10.8)
[2020-03-22] MEDS: AZTREONAM 2,000 MG in DEXTROSE 5% 100 ML IV SCH ×2 (07:31→16:17)
[2020-03-22 07:53] LABS: BUN Creatinine Ratio 9.5 (10-20); Est GFR (African American) 69.4; Est GFR (Non-African American) 59.9; Potassium 3.8 mmol/L (3.5-5.1)
[2020-03-22] MEDS: RIFAXIMIN 550 MG TABLET PO SCH ×2 (08:38→20:53)
[2020-03-22] MEDS: FERROUS SULFATE ELIX 220MG/5ML PO SCH (08:38)
[2020-03-22] MEDS: CYANOCOBALAMIN 500 MCG TABLET (VITAMIN B-12) PO SCH (08:38)
[2020-03-22] MEDS: MULTIVITAMIN TAB PO SCH (08:39)
[2020-03-22] MEDS: GABAPENTIN 600 MG TAB PO SCH ×2 (08:39→20:52)
[2020-03-22] MEDS: PANTOprazole 40 MG TAB PO SCH ×2 (08:39→20:52)
[2020-03-22] MEDS: CHOLECALCIFEROL 1,000 UNITS 25 MCG TAB PO SCH ×2 (08:39→20:52)
[2020-03-22] MEDS: MAGNESIUM OXIDE 400 MG TAB PO SCH ×2 (08:39→20:52)
[2020-03-22] MEDS: DULOXETINE HCL 60 MG CAP PO SCH (08:40)
[2020-03-22] MEDS: ZINC SULFATE 220 MG CAPSULE PO SCH (08:40)
[2020-03-22] MEDS: NYSTATIN POWDER 15GM BTL EXT SCH ×2 (08:41→20:52)
[2020-03-22] MEDS: TORSEMIDE 20 MG TAB PO SCH (08:41)
[2020-03-22] MEDS ORDERED: LOPERAMIDE HCL 2 MG CAP PO PRN (15:03)
--- NOTE | 2020-03-22 15:20 | Hospitalist Progress Note ---
Date of Service March 22, 2020 Assessment & Plan (1) Perirectal abscess: per Dr. Foley's notes -patient presenting from home with reports of increasing rectal edema and pain -Started with intravenous Vanco and Flagyl in the ED and ceftriaxone was added on admission -wound and blood cultures -Developed rash likely secondary to cephalosporin without any shortness of breath -Antibiotic changed to intravenous aztreonam and IV vancomycin and Flagyl were continued -general surgery consult-appreciate input. No IND for now -Clinically better 03/22/2020 affected area continues to improve Left buttock drainage culture: Skin bernarda Blood cultures: Negative Tolerating IV clindamycin and aztreonam well, continue Plan to transition tomorrow to oral antibiotics, discussed with pharmacy (2) Diarrhea: C. difficile negative Continue probiotics Restart IV NSS, clear liquid diet PRN Imodium Monitor closely (3) Drug rash: Likely secondary to Zosyn or Flagyl Still having generalized rash, but improving, no pruritus Start Zyrtec p.o. daily Monitor closely (4) Paroxysmal A-fib: INR pending continue Coumadin (5) Cirrhosis: -appears compensated -Hold diuretics for diarrhea, continue Xifaxan -No acute issues (6) DVT prophylaxis: -SCDs while INR < 2.0 Admission and Anticipated Discharge Date Admission Date: March 19, 2020 Subjective Follow-up for perirectal abscess, cellulitis Seen with AMALIA Salamanca at the bedside Patient reports pain in the affected area continues to improve No problems with urination No pruritus of the skin Still has some generalized rash but improving Ports having diarrhea more than 4-5 times today, loose, no blood Denies abdominal pain, nausea, chills No other symptoms Review of Systems Review of Systems: All systems reviewed & are unremarkable except as noted in HPI & below Physical Exam Physical Exam: General- oriented x 3, not in distress, speaks in sentences with no effort or accessory muscle use Eyes- anicteric Neck- no JVD Lungs- clear breath sounds bilaterally, no rales/wheezes Heart- normal rate, regular rhythm; no murmurs Abdomen- normal bowel sounds, nondistended, soft, nontender Inspection of the left gluteal area, perineum,mons pubis: No edema, erythema continues to resolve Extremities- no pretibial edema, no calf tenderness Positive erythematous, maculopapular rash on the chest, back, bilateral upper arms, proximal bilateral lower extremities Neuro- alert, oriented x 3; no gross focal neurologic deficits Skin- warm & dry Results & Data Results & Data ([facility]) Vital Signs (Past 12 Hours) Vital Signs Temp Pulse Resp BP Pulse Ox 03/22/20 07:25 36.7 C 88 16 127/88 97 Laboratory Results Laboratory Results - last 24 hr 03/22/20 03/22/20 03/22/20 06:22 06:22 06:22 WBC 5.32 RBC 3.13 L Hgb 9.4 L Hct 29.3 L MCV 93.6 MCH 30.0 MCHC 32.1 RDW Std Deviation 55.2 H RDW Coeff of Jake 16.2 H Plt Count 292 MPV 9.8 Immature Gran % (Auto) 1.7 Neut % (Auto) 62.9 Lymph % (Auto) 19.0 [place] % (Auto) 10.7 Eos % (Auto) 5.5 Baso % (Auto) 0.2 Immature Gran # (Auto) 0.09 H Neut # (Auto) 3.35 Lymph # (Auto) 1.01 L [place] # (Auto) 0.57 Eos # (Auto) 0.29 Baso # (Auto) 0.01 Sodium 136 Potassium 3.8 Chloride 103 Carbon Dioxide 24 Anion Gap 8.0 BUN 10 Creatinine 1.03 Est Cr Clr Drug Dosing 67.0 Est GFR ( Amer) 69.4 Est GFR (Non-Af Amer) 59.9 BUN/Creatinine Ratio 9.5 L Glucose 111 H Calcium 8.0 L Stl C. diff Tox B Gene Random Vancomycin 21.9 03/22/20 13:15 WBC RBC Hgb Hct MCV MCH MCHC RDW Std Deviation RDW Coeff of Jake Plt Count MPV Immature Gran % (Auto) Neut % (Auto) Lymph % (Auto) [place] % (Auto) Eos % (Auto) Baso % (Auto) Immature Gran # (Auto) Neut # (Auto) Lymph # (Auto) [place] # (Auto) Eos # (Auto) Baso # (Auto) Sodium Potassium Chloride Carbon Dioxide Anion Gap BUN Creatinine Est Cr Clr Drug Dosing Est GFR ( Amer) Est GFR (Non-Af Amer) BUN/Creatinine Ratio Glucose Calcium Stl C. diff Tox B Gene Negative Cdiff Gene Random Vancomycin
[2020-03-22 15:43] LABS: INR 1.9 (0.9-1.1); Prothrombin Time 19.5 Seconds (9.0-12.0)
[2020-03-22] MEDS: CETIRIZINE HCL 10 MG TABLET PO SCH (15:52)
[2020-03-22] MEDS: SODIUM CHLORIDE 0.9% 1000ML 1,000 ML IV SCH (15:52)
[2020-03-22] MEDS: HYDROmorphone HCL 2 MG TAB PO PRN ×2 (15:53→20:58)
[2020-03-22] MEDS: WARFARIN SOD 6 MG TAB PO SCH (15:53)
[2020-03-22] MEDS: LACTOBACILLUS ACIDOPHILUS (FLORANEX) TAB PO SCH ×2 (16:18→20:52)
[2020-03-22] MEDS: FLUCONAZOLE 200 MG/100 ML BAG IV SCH (19:42)
[2020-03-23] MEDS: AZTREONAM 2,000 MG in DEXTROSE 5% 100 ML IV SCH ×2 (00:20→08:24)
[2020-03-23] MEDS: SODIUM CHLORIDE 0.9% 1000ML 1,000 ML IV SCH ×2 (05:03→16:16)
[2020-03-23] MEDS: CLINDAMYCIN 600 MG in DEXTROSE 5% 50 ML IV SCH (05:03)
[2020-03-23] MEDS: LEVOTHYROXINE SODIUM 75 MCG TABLET PO SCH (05:04)
[2020-03-23 06:08] LABS: Basophils # (auto) 0.04 K/uL (0-0.2); Basophils % (auto) 0.8 %; Eosinophils # (auto) 0.42 K/uL (0-0.5); Eosinophils % (auto) 8.2 %; Hematocrit (blood only) 30.8 % (37-47); Hemoglobin 9.7 g/dL (12.0-16.0); Immature Granulocytes # (auto) 0.18 K/uL (0.00-0.02); Immature Granulocytes % (auto) 3.5 %; Lymphocytes # (auto) 1.53 K/uL (1.2-3.4); Lymphocytes % (auto) 29.9 %; Mean Corpuscular Hemoglobin 29.7 pg (25-34); Mean Corpuscular Hgb Conc 31.5 g/dL (32-36); Mean Corpuscular Volume 94.2 fL (80-100); Mean Platelet Volume 9.7 fL (7.4-10.4); Monocytes # (auto) 0.51 K/uL (0.11-0.59); Neutrophils # (auto) 2.43 K/uL (1.4-6.5); Neutrophils % (auto) 47.6 %; Platelet Count 333 K/uL (130-400); RDW Coefficient of Variation 16.2 % (11.5-14.5); RDW Standard Deviation 55.8 fL (36.4-46.3); Red Blood Count 3.27 M/uL (4.2-5.4); White Blood Count 5.11 K/uL (4.8-10.8)
[2020-03-23 06:18] LABS: INR 2.5 (0.9-1.1); Prothrombin Time 24.9 Seconds (9.0-12.0)
[2020-03-23 06:41] LABS: BUN Creatinine Ratio 9.3 (10-20); Calcium 8.4 mg/dl (8.5-10.1); Creatinine Clr Calc Pharmacy 80.2 ml/min; Est GFR (African American) 86.3; Est GFR (Non-African American) 74.5; Potassium 3.7 mmol/L (3.5-5.1)
[2020-03-23] MEDS: RIFAXIMIN 550 MG TABLET PO SCH (09:12)
[2020-03-23] MEDS: GABAPENTIN 600 MG TAB PO SCH (09:12)
[2020-03-23] MEDS: DULOXETINE HCL 60 MG CAP PO SCH (09:12)
[2020-03-23] MEDS: LACTOBACILLUS ACIDOPHILUS (FLORANEX) TAB PO SCH ×2 (09:12→12:13)
[2020-03-23] MEDS: CHOLECALCIFEROL 1,000 UNITS 25 MCG TAB PO SCH (09:12)
[2020-03-23] MEDS: MULTIVITAMIN TAB PO SCH (09:13)
[2020-03-23] MEDS: CETIRIZINE HCL 10 MG TABLET PO SCH (09:13)
[2020-03-23] MEDS: CYANOCOBALAMIN 500 MCG TABLET (VITAMIN B-12) PO SCH (09:13)
[2020-03-23] MEDS: MAGNESIUM OXIDE 400 MG TAB PO SCH (09:13)
[2020-03-23] MEDS: PANTOprazole 40 MG TAB PO SCH (09:13)
[2020-03-23] MEDS: ZINC SULFATE 220 MG CAPSULE PO SCH (09:13)
[2020-03-23] MEDS: FERROUS SULFATE ELIX 220MG/5ML PO SCH (09:13)
[2020-03-23] MEDS: NYSTATIN POWDER 15GM BTL EXT SCH (09:14)
[2020-03-23] MEDS ORDERED: CIPROFLOXACIN 500 MG TAB PO SCH (10:00)
[2020-03-23] MEDS ORDERED: CLINDAMYCIN HCL 150 MG CAP PO SCH (13:00)
--- NOTE | 2020-03-23 14:14 | Hospitalist Progress Note ---
Date of Service March 23, 2020 Assessment & Plan (1) Perirectal abscess: per Dr. Foley's notes -patient presenting from home with reports of increasing rectal edema and pain -Started with intravenous Vanco and Flagyl in the ED and ceftriaxone was added on admission -wound and blood cultures -Developed rash likely secondary to cephalosporin without any shortness of breath -Antibiotic changed to intravenous aztreonam and IV vancomycin and Flagyl were continued -general surgery consult-appreciate input. No IND for now -Clinically better 03/23/2020 affected areas improved significantly Left buttock drainage culture: Skin bernarda Blood cultures: Negative Patient developed drug rash with ceftriaxone and Flagyl Addition to IV aztreonam and clindamycin, tolerated well Discharge plan: Ciprofloxacin 500 mg every 12 hours for 5 more days to complete 10-day antibiotic therapy Clindamycin 600 mg every 8 hours for 5 more days to complete 10-day antibiotic therapy Zyrtec 10 mg p.o. daily x10 days for drug rash, monitor as outpatient Patient advised to take probiotics daily in light of history of C. difficile colitis and to increase oral fluid intake Follow-up with primary care physician next week. (2) Diarrhea: Resolved C. difficile negative Continue probiotics daily PRN Imodium given (3) Drug rash: Patient observed to have generalized erythema on the trunk, back, extremities after receiving ceftriaxone and Flagyl Started on Zyrtec p.o. daily, improving, continue for at least 10 more days Please include ceftriaxone and Flagyl on allergy list on epic (4) Paroxysmal A-fib: INR 2.5 Will be on Cipro and Clinda x5 days Will advised to use Coumadin 6 mg daily for now Repeat INR on 03/26/2020 care of Coumadin clinic, further recommendations per Coumadin clinic (5) Cirrhosis: -No acute issues -Denies usual regimen (6) DVT prophylaxis: Coumadin Disposition: Discharge to home Follow-up with primary care physician next week Follow-up with Coumadin clinic on Thursday, March 26, 2020 for INR check and further Coumadin advice Admission and Anticipated Discharge Date Admission Date: March 19, 2020 Subjective Follow-up for perirectal abscess Seen resting in bed, sleeping but easily awakened, in good spirits, comfortable States she continues to feel better No pain, tenderness on the affected areas Diarrhea has resolved, tolerating diet well Generalized rash also resolving, no pruritus Denies any other symptoms States that she is ready and would like to be discharged today Review of Systems Review of Systems: All systems reviewed & are unremarkable except as noted in HPI & below Physical Exam Physical Exam: General- oriented x 3, not in distress, speaks in sentences with no effort or accessory muscle use Eyes- anicteric Neck- no JVD Lungs- clear breath sounds bilaterally, no rales/wheezes Heart- normal rate, regular rhythm; no murmurs Abdomen- normal bowel sounds, nondistended, soft, nontender Extremities- no pretibial edema, no calf tenderness Generalized rash-improving erythema on the trunk, back, upper and lower extremities Neuro- alert, oriented x 3; no gross focal neurologic deficits Skin- warm & dry Results & Data Results & Data ([facility]) Vital Signs (Past 12 Hours) Vital Signs Temp Pulse Resp BP Pulse Ox 03/23/20 07:18 36.7 C 78 16 125/79 100
[2020-03-23] MEDS: WARFARIN SOD 10 MG TAB PO SCH (15:32)
--- NOTE | 2020-03-23 15:53 | Discharge Summary ---
Date of Service March 23, 2020 Admission HPI Per Admitting Provider 60 year old female with PMH cirrhosis, paroxysmal afib on Coumadin, hypothyroidism, and other problems listed below who presents to the ED with reports of rectal pain. Patient reports symptoms began about one week ago. She reports she felt as though she had a hemorrhoid however she has increasing swelling and pain around her rectum. She also has had associated poor appetite, nausea, and vomiting. Denies hematemesis and coffee ground emesis. No abdominal pain or diarrhea. Today, patient reports that when she sat down something had "burst" and there was a large amount of bloody drainage. She then called EMS and presented to the ED for further evaluation. Patient denies fever and chills. No chest pain or shortness of breath. Denies lightheadedness, dizziness, diaphoresis, and syncopal event. Reports falling out of bed last week while trying to reach for the remote on the floor and did strike her head. No loss of consciousness. She denies any urinary symptoms. In the ED, CT abd/pelvis is showing extensive inflammatory changes in the region of the left perineum emanating from the left anus and left vulva and extensively involving the left medial gluteal fold. Severe surrounding cellulitis even more extensive, extending from the mons pubis anteriorly to the left buttock posteriorly. Phlegmonous changes in the left perineum without focal abscess. Single focus of gas within the phlegmonous change may suggest developing abscess. Patient is hemodynamically stable. She was given IV Flagyl and IV Vanco. Admission Exam Per Admitting Provider Constitutional: WD/WN, vitals as above Eyes: PERRL, conjunctivae normal, anicteric sclerae ENMT: external ear and nose normal, oropharynx normal Respiratory: normal respiratory effort, lungs clear to auscultation Cardiovascular: Rate/Rhythm: regular rate and regular rhythm Vessels: normal peripheral pulses Extremities: no edema Gastrointestinal (Abdomen): normal bowel sounds, soft, nontender, no hepatosplenomegaly Musculoskeletal: no cyanosis or clubbing, extremities motor strength 5/5 Skin: left gluteal fold erythematous with open area draining dark bloody drainage, tender to touch; erythema extending into the perineum and involving the left labia majora Neurologic: PERRL, EOMI, accommodation nl, no face palsy, no dysarthria Psychiatric: A+Ox3, euthymic affect Principal Diagnosis PERIRECTAL ABSCESS Discharge Exam General- oriented x 3, not in distress, speaks in sentences with no effort or accessory muscle use Eyes- anicteric Neck- no JVD Lungs- clear breath sounds bilaterally, no rales/wheezes Heart- normal rate, regular rhythm; no murmurs Abdomen- normal bowel sounds, nondistended, soft, nontender Extremities- no pretibial edema, no calf tenderness Generalized rash-improving erythema on the trunk, back, upper and lower extremities Neuro- alert, oriented x 3; no gross focal neurologic deficits Skin- warm & dry Discharge Data Allergies Allergy/AdvReac Type Severity Reaction Status Date / Time cefaclor Allergy Intermediate Swelling Verified 03/19/20 11:40 oxycodone Allergy Intermediate HIVES Verified 03/19/20 11:40 amoxicillin Allergy Mild Nausea Verified 03/19/20 11:40 ceftriaxone [From Rocephin] Allergy Rash Verified 03/20/20 10:23 metronidazole [From Flagyl] Allergy Rash Verified 03/23/20 09:00 Consultations 03/19/20 13:07 ED Decision to Admit Stat 03/19/20 16:19 Consult Case Management - Discharge Planning Routine Consult General Surgery Routine Ordered Studies 03/19/20 10:59 CT abd pelvis IV con only Stat FINDINGS: Wirer topogram: Cholecystectomy clips. Lung bases: Borderline enlargement of the heart. Coronary artery calcification. No pericardial or pleural effusion. No focal infiltrate or nodule at the lung bases. Liver: Normal morphology. Density suggestive of hepatic steatosis. No focal le dora. Patent hepatic vasculature. Biliary: Mild biliary ductal prominence likely a reservoir effect in the post cholecystectomy state. Gallbladder surgically absent. Pancreas: Severe parenchymal atrophy. Parenchymal calcification suggest a history of chronic pancreatitis. The appearance of the pancreatic duct consistent with this diagnosis. Spleen: Normal. Adrenal glands: Normal. Kidneys and ureters: Normal parenchyma. No nephrolithiasis or hydronephrosis. Mild urothelial thickening suggested bilaterally with mild distention of the ureters bilaterally. No obstructing calculi. Bladder: Incompletely evaluated secondary to underdistention. Mucosal hyperenhancement may be present. Pelvic organs: Uterus and ovaries normal. Bowel: Inflammatory change extending from the left aspect of the anus and fall the to involve the left ischiorectal fossa and extending along the left aspect of the gluteal cleft. Extensive phlegmonous changes. No rim-enhancing fluid collection is identified. Surrounding infiltration of the subcutaneous fat is severe and extensive emanating to the left aspect of the mons pubis and in the left buttocks. A single focus of soft tissue emphysema is identified in the region of greatest phlegmonous change in the left medial gluteal region (series 5 image 48). Normal appearance of the rectum. Postsurgical changes of fracture, neck Silvio-en-Y gastric bypass. No bowel obstruction. Distal anastomosis patent. Small hiatal hernia. The appendix is normal. Peritoneal cavity: Trace free fluid in the pelvis. No free intraperitoneal gas. Lymph nodes: Prominent though largely subcentimeter bilateral inguinal lymph nodes. The largest lymph node is noted on the left measuring 11 mm in short axis. Enlarged left external iliac lymph node measuring 9 mm in short axis. S maller left common iliac and retroperitoneal lymph nodes likely also reactive. Vasculature: Aorta and IVC patent and normal in caliber. Abdominal wall: Small fat-containing umbilical hernia. Mild body wall edema. Musculoskeletal: Degenerative changes of the spine. Asymmetric atrophy of the right psoas muscle. IMPRESSION: 1. Extensive inflammatory changes in the region of the left perineum emanating from the left anus and left vulva and extensively involving the left medial gluteal fold. Severe surrounding cellulitis even more extensive, extending from the mons pubis anteriorly to the left buttock posteriorly. Phlegmonous changes in the left perineum without focal abscess. Single focus of gas within the phlegmonous change may suggest developing abscess. No extensive soft tissue emphysema to suggest necrotizing fasciitis/Jessica gangrene, however, this is a clinical diagnosis. 2. Left inguinal lymphadenopathy presumably reactive. Additional reactive left external iliac lymph nodes. 3. Retrocolic Silvio-en-Y gastric bypass without evidence of complication. 4. Evidence of chronic pancreatitis. CT head/brain wo con Stat FINDINGS: No acute intracranial hemorrhage, midline shift or mass effect is present. The ventricular system is unremarkable. The basilar cisterns are patent. No extra-axial collections are present. There are no findings to suggest acute dural sinus thrombosis or acute territorial infarct. No significant calvarial abnormalities are present. Visualized portions of the sinuses and mastoid air cells are clear. IMPRESSION: 1. No acute intracranial findings. 2. No calvarial fracture. Hospital Course (1) Perirectal abscess: per Dr. Foley's notes -patient presenting from home with reports of increasing rectal edema and pain -Started with intravenous Vanco and Flagyl in the ED and ceftriaxone was added on admission -Developed rash likely secondary to cephalosporin without any shortness of breath -Antibiotic changed to intravenous aztreonam and IV vancomycin and Flagyl were continued -general surgery consult- No I&D recommended Left buttock drainage culture: Skin brenarda Blood cultures: Negative Patient developed drug rash with ceftriaxone and Flagyl transitioned to IV aztreonam and clindamycin, tolerated well affected areas improved significantly Discharge plan: Ciprofloxacin 500 mg every 12 hours for 5 more days to complete 10-day antibiotic therapy Clindamycin 600 mg every 8 hours for 5 more days to complete 10-day antibiotic therapy Zyrtec 10 mg p.o. daily x10 days for drug rash, monitor as outpatient Patient advised to take probiotics daily in light of history of C. difficile colitis and to increase oral fluid intake Follow-up with primary care physician next week. (2) Diarrhea: Resolved C. difficile negative Continue probiotics daily PRN Imodium given (3) Drug rash: Patient observed to have generalized erythema on the trunk, back, extremities after receiving ceftriaxone and Flagyl Started on Zyrtec p.o. daily, improving, continue for at least 10 more days Please include ceftriaxone and Flagyl on allergy list on epic chart (4) Paroxysmal A-fib: INR 2.5 Will be on Cipro and Clinda x5 days Will advised to use Coumadin 6 mg daily for now Repeat INR on 03/26/2020 care of Coumadin clinic, further recommendations per Coumadin clinic (5) Cirrhosis: -No acute issues -continues usual regimen (6) DVT prophylaxis: Coumadin Disposition: Discharge to home Follow-up with primary care physician next week Follow-up with Coumadin clinic on Thursday, March 26, 2020 for INR check and further Coumadin advice Total Time Total Time Spent Total Time Spent (In Minutes): > 30 minutes Discharge Plan Discharge Items Patient Disposition: Home - Self-Care Reason For Visit: PERIRECTAL ABSCESS Discharge Diagnosis: Perirectal abscess Activity: Resume your previous activity Activity Comment: Resume activity gradually as tolerated Driving/Machine Use: No driving until reevaluated and allowed by primary care physician Non-emergency contact: Primary Care Provider Call non-emergency contact if: you have any medication questions, your symptoms worsen, your pain is not controlled, your pain is worsening, your pain is unusual for you, your pain is concerning for you, you have a fever, your wound has increased redness, your wound has increased drainage and your wound pain has increased Follow-up/Referrals: Naresh Bro MD [Primary Care Provider] - (The clinic will call you at home for a hospital follow up. The coumadin clinic will check your INR early next week. They will also call you with the time.) Diet: Heart Healthy Addtl Attending Provider Instructions: Please review your new medication list and follow instructions carefully. Your new medications include: Clindamycin and ciprofloxacin-antibiotics Zyrtec-for generalized rash caused by drug reaction Please make sure to take a probiotic daily. Do not take Zofran while taking ciprofloxacin. For now, take Coumadin 6 mg daily. The Coumadin clinic will call you on Thursday for repeat INR and advice regarding your Coumadin dosing. Please follow-up with your primary care physician next week. Please follow-up with Coumadin clinic on Thursday, March 26, 2020. The [facility] clinic will be calling you for the appointments. If you do not hear from them on Thursday, please call their office to set up an appointment. Call primary care physician or return to the ER immediately if with worsening of symptoms, including worsening of redness, pain, bleeding or discharge from the affected areas, Worsening of the rash, fever or chills, diarrhea, weakness. Pending Studies at Discharge: Yes Studies:: INR check on Thursday, March 26, 2020 Stand-Alone Forms: My eSNF, Smoking Cessation Medications and DC Order Prescriptions: New cetirizine 10 mg Tablet 10 mg PO QAM Qty: 10 RF: 1 ciprofloxacin HCl 500 mg Tablet 500 mg PO BID Qty: 10 RF: 0 diphenhydramine HCl [Benadryl] 25 mg Capsule 25 mg PO Q6 PRN (Reason: itching) Qty: 15 RF: 0 warfarin [Coumadin] 6 mg Tablet 6 mg PO DAILY Qty: 30 RF: 0 clindamycin HCl 300 mg capsule 600 mg PO Q8H Qty: 30 RF: 0 Continued rifaximin 550 mg tablet 550 mg PO BID RF: 0 cholecalciferol (vitamin D3) 2,000 unit capsule 2,000 unit PO BID RF: 0 ferrous sulfate 220 mg (44 mg iron)/5 mL elixir 220 mg PO DAILY RF: 0 pantoprazole 40 mg Tablet,Delayed Release (Dr/Ec) 40 mg PO BID RF: 0 duloxetine [Cymbalta] 60 mg Capsule,Delayed Release(Dr/Ec) 60 mg PO QAM RF: 0 lactulose 10 gram/15 mL Solution 45 ml PO DAILY PRN (Reason: Constipation) RF: 0 multivitamin Tablet 1 tab PO QAM RF: 0 torsemide [Demadex] 20 mg Tablet 20 mg PO QAM RF: 0 sucralfate [Carafate] 1 gram Tablet 1 g PO BID PRN (Reason: Dyspepsia) RF: 0 ondansetron HCl [Zofran] 4 mg Tablet 4 mg PO Q8 PRN (Reason: Nausea) RF: 0 cyanocobalamin (vitamin B-12) [Vitamin B-12] 1,000 mcg Tablet 1,000 mcg PO QAM RF: 0 levothyroxine 75 mcg Tablet 75 mcg PO QAM RF: 0 zinc sulfate 220 mg Tablet 220 mg PO DAILY RF: 0 hydromorphone 2 mg Tablet 2 mg PO TID PRN (Reason: Pain) RF: 0 magnesium oxide 400 mg magnesium Tablet 400 mg PO BID RF: 0 gabapentin 600 mg tablet 600 mg PO BID RF: 0 Discontinued warfarin 4 mg tablet 6 mg PO SUTUTH RF: 0 warfarin 4 mg tablet 10 mg PO MOWEFRSA RF: 0 Discharge Orders: Discharge Order (Routine); Ordered 03/23/20 Ordered By: Roddy Wolf/Other Patient Handouts: What to Know When TakingWarfarin, Warfarin tablets Admission Data Admit Date/Time: 03/19/20 13:22 Attending Provider: Roddy Andre Admit Provider: Rommel Junior Primary Care Provider: Naresh Bro Other Providers: Rommel Junior ; Rishi Wood ; Malissa Foley Other Interventions: Discharge Summary Assessment (RN) Last Done: 03/23/20 16:16 DC Date/Time DO NOT enter until pt leaves facility: 03/23/20 17:35
--- NOTE | 2020-03-23 19:45 | Electrocardiogram Report ---
Test Reason : Blood Pressure : / mmHG Vent. Rate : 093 BPM Atrial Rate : 093 BPM P-R Int : 136 ms QRS Dur : 084 ms QT Int : 362 ms P-R-T Axes : 058 060 034 degrees QTc Int : 450 ms Normal sinus rhythm Normal ECG When compared with ECG of 22-SEP-2018 20:34, No significant change was found Confirmed by Gordy Hansen [id number] on 03/23/2020 7:45:13 PM Referred By: REFERRED SELF Confirmed By:Sorin Hansen
== END 2020-03-23 17:35 | disposition home or self-care (01) | DRG 395 ==
LOC: ED 10:42 → SUATTDRO 13:22 → 3E 13:22

== ENCOUNTER 2020-06-16 15:34 | Inpatient (IN) ==
--- NOTE | 2020-06-16 15:59 | Emergency Department Note ---
Impression & Plan AMS (altered mental status), Elevated INR, Contusion, REJI (acute kidney injury), Cirrhosis, Anemia, iron deficiency ED Provider Note NAME: ROMULO JARVIS AGE: 60 SEX: F : 1960 ARRIVES VIA: Ambulance INFORMANT: Patient ED PROVIDER(S): Willard Ott DO CHIEF COMPLAINT: Recurrent falls HPI: Patient is a 60-year-old female with a past medical history of cirrhosis secondary to alcohol, peptic ulcer disease and chronic pain that presents the ER for persistent falls. She notes that she fell yesterday and again today. She notes that she has fallen several times this week. History is difficult to obtain as she is falling asleep fairly quickly after she finishes her sentence. She notes that she has had pain is about 8 out of 10 and that the collar that she is wearing is giving her pain as well. Complains of pain in her left knee from a fall which she believes happened either or Thursday but cannot remember which one caused this. She notes that today she was getting out of bed and she fell forward. Her roommate came home to find her. She notes that she was only on the floor for several minutes. She did take Dilaudid prior to arrival which is prescribed to her through the pain clinic. Luz Marina called back in and noted that she has been drinking alcohol and she is missing a large amount of her narcotics that we are just recently prescribed to her. ROS: See above HPI for pertinent positives & negatives. A total of 10 systems reviewed and were otherwise negative. PAST MEDICAL HISTORY:See Below PAST SURGICAL HISTORY:See Below FAMILY HISTORY:See Below SOCIAL HISTORY:See Below HOME MEDICATIONS:See Below ALLERGIES:See Below VITALS:See Below PHYSICAL EXAMINATION: GENERAL: alert, chronically ill-appearing, dozing in and out, no acute distress HEAD: Bruising over the forehead EYE EXAM: normal conjunctiva, PERRL and EOM's grossly intact OROPHARYNX: no exudate, no erythema, lips, buccal mucosa, and tongue normal and mucous membranes are moist EARS: TMs clear b/l NECK: Cervical collar in place with no midline tenderness CHEST: stable to compression anteriorly and posteriorly LUNGS: clear to auscultation. Normal chest wall mechanics HEART: no murmurs, S1 normal and S2 normal ABDOMEN: abdomen soft, non-tender, normo-active bowel sounds, no masses, no rebound or guarding. PELVIS: stable to compression anteriorly and posteriorly BACK: Back is symmetrical on inspection and there is no deformity, no midline tenderness, no CVA tenderness. UPPER EXTREMITIES: full active and passive range of motion of all joints without tenderness to palpation LOWER EXTREMITIES: Flexion-extension right hip, knee and ankle without pain. Fl exion-extension of the left hip without tenderness. Moderate pain with movement of the left knee with bruising and swelling from the mid femur to the mid trammell. Pitting edema bilaterally. NEURO EXAM: Awakens to voice but intermittently falls asleep, cranial nerves II- XII grossly intact, normal speech, no gross weakness of arms, no gross weakness of legs. GCS: 14. MEDICAL DECISION MAKING: Patient is a 60-year-old female who presents the ER for recurrent falls. On e valuation patient is slightly out of it and persistently falling asleep. IV was established blood work was obtained. Labs show no significant leukocytosis. Anemia 7 down from 9. Hematocrit was low. Patient was typed and crossed. INR was significantly elevated at 9.7. With the bruising of the left leg this was reversed with IV vitamin K. Sodium was low at 129. Potassium low at 2.9. Patient was given IV potassium. Creatinine was elevated 2.2 off of a baseline of 1. LFTs were unremarkable as well as bilirubin. Ammonia was elevated 72. Alcohol was normal. Family called and noted that she is missing a large amount of her narcotics. They question if she took them. They also note that she is back drinking. CT head and cervical spine were unremarkable. X-rays of the knee show no acute fractures. Patient was updated at bedside admit to the hospital for further work-up. Triage Nursing notes reviewed. Prior medical records reviewed Vital Signs: reviewed and remarkable for no significant abnormalities Differential diagnosis: Differential diagnoses includes but is not limited to toxic, metabolic, infectious, traumatic, cardiac, neurologic, hematologic, psychiatric and inflammatory etiologies. ER treatment provided: See below Diagnostics interpreted by me: EKG: Sinus rhythm rate 89 Normal axis No PVCs Nonspecific ST wave changes in the lateral leads Cardiac Monitoring: An order was placed for continuous cardiac monitoring. The monitor shows a rate of 90 with sinus rhythm. Laboratory studies: As stated above and show below. Imaging studies: CT head and cervical spine showed no acute fractures X-rays of the knee show no acute fractures Consultation(s): Discussed with Ade Brown for admission ED COURSE: Procedures: none Critical Care: None Past Med/Surg History Medical History (Updated 06/16/20 @ 20:21 by Willard Ott DO) Anemia, iron deficiency Ascites Cirrhosis Depression Gastric peptic ulcer Hypothyroidism Neuropathy of both feet On anticoagulant therapy warfarin daily Paroxysmal A-fib Surgical History History of arthrodesis left leg History of arthroplasty of right shoulder unable to lift arm after sx History of arthroscopy of left knee x2 History of arthroscopy of right knee x7 History of cardiac cath 2011--no stents History of cholecystectomy History of colonoscopy History of esophagogastroduodenoscopy (EGD) History of gastric bypass History of open reduction and internal fixation (ORIF) procedure left tib/fib fx--hardware in place History of surgery on extremity 2016--right leg hardware in place per pt a "fusion of her leg" History of tooth extraction all teeth removed History of total right knee replacement (TKR) 2006 Family History Sister Breast cancer Mother Hypertension Diabetes Other No family history of adverse response to anesthesia Social History (Updated 06/16/20 @ 19:22 by Trixie Turk PA-C) Smoking Status: Former smoker Second Hand Exposure: Yes (father smoked); Hx Alcohol Use: Yes (Former use) Alcohol type: beer and wine Alcohol Intake Frequency: 4 or More x per/Week Alcohol Intake Frequency Comment: daily, 2-3 beers Hx Substance Use: No Preferred Language: Slovak Communication Ability: Effective Gunner Mate Required: No Beliefs That Will Affect Care: None Current Living Situation: Alone Feels Safe at Home: Yes Allergies Allergies Allergy/AdvReac Type Severity Reaction Status Date / Time cefaclor Allergy Intermediate Swelling Verified 06/16/20 16:22 oxycodone Allergy Intermediate HIVES Verified 06/16/20 16:22 amoxicillin Allergy Mild Nausea Verified 06/16/20 16:22 ceftriaxone [From Rocephin] Allergy Rash Verified 06/16/20 16:22 metronidazole [From Flagyl] Allergy Rash Verified 06/16/20 16:22 Home Meds Home Medications Medication Instructions Recorded Confirmed cyanocobalamin (vitamin B-12) 1,000 mcg PO QAM 08/22/18 06/16/20 [Vitamin B-12] hydromorphone [Dilaudid] 2 mg PO BID PRN 08/22/18 06/16/20 levothyroxine [Synthroid] 75 mcg PO QAM 08/22/18 06/16/20 magnesium oxide 400 mg PO BID 08/22/18 06/16/20 multivitamin 1 tab PO QAM 08/22/18 06/16/20 ondansetron HCl [Zofran] 4 mg PO Q8 PRN 08/22/18 06/16/20 sucralfate [Carafate] 1 g PO BID PRN 08/22/18 06/16/20 zinc sulfate 220 mg PO QAM 08/22/18 06/16/20 cholecalciferol (vitamin D3) 4,000 unit PO DAILY 10/03/18 06/16/20 [Vitamin D3] rifaximin [Xifaxan] 550 mg PO BID 10/03/18 06/16/20 duloxetine [Cymbalta] 60 mg PO QAM 07/19/19 06/16/20 lactulose [Generlac] 45 ml PO DAILY PRN 07/19/19 06/16/20 pantoprazole [Protonix] 40 mg PO BID 07/19/19 06/16/20 gabapentin [Neurontin] 600 mg PO BID 03/19/20 06/16/20 cetirizine [Zyrtec] 10 mg PO QAM 04/05/20 06/16/20 warfarin [Coumadin] 6 - 10 mg PO HS 04/05/20 06/16/20 Probiotic 1 cap PO TID 06/16/20 06/16/20 ferrous sulfate 220 mg PO DAILY 06/16/20 06/16/20 hydromorphone [Dilaudid] 1 mg PO .DAILY @ LUNCH PRN 06/16/20 06/16/20 torsemide 60 mg PO DAILY 06/16/20 06/16/20 Previous Rx's Medication Instructions Recorded diphenhydramine HCl [Benadryl] 25 mg PO Q6 PRN #15 cap 03/23/20 Results & Data (ED) Vital Signs Vital Signs - 24 hr 06/16/20 15:38 06/16/20 15:53 06/16/20 15:54 Temperature 36.7 C Temperature Source Oral Pulse Rate 89 99 H 92 H Pulse Rate [Left Finger] Pulse Rate from SpO2 Sensor 89 86 Respiratory Rate 12 17 18 Respiratory Depth Normal Blood Pressure 121/74 121/74 Blood Pressure [Left Arm] Blood Pressure Mean 84 89 Blood Pressure Mean [Left Arm] Blood Pressure Position Lying Pulse Oximetry 94 97 96 Oxygen Delivery Method Room Air Sepsis Recent Fever Within 48 Hours No Sepsis New/Unexplained Change in Mental Status No Sepsis Action Taken by Nursing No Action Required 06/16/20 16:00 06/16/20 16:01 06/16/20 16:30 Temperature Temperature Source Pulse Rate 89 90 Pulse Rate [Left Finger] Pulse Rate from SpO2 Sensor 89 Respiratory Rate 22 14 Respiratory Depth Blood Pressure Blood Pressure [Left Arm] Blood Pressure Mean Blood Pressure Mean [Left Arm] Blood Pressure Position Pulse Oximetry 95 98 Oxygen Delivery Method Room Air Sepsis Recent Fever Within 48 Hours Sepsis New/Unexplained Change in Mental Status Sepsis Action Taken by Nursing 06/16/20 17:00 06/16/20 17:10 06/16/20 17:13 Temperature Temperature Source Pulse Rate 90 93 H 90 Pulse Rate [Left Finger] Pulse Rate from SpO2 Sensor Respiratory Rate 15 15 14 Respiratory Depth Blood Pressure 84/48 L Blood Pressure [Left Arm] Blood Pressure Mean 52 Blood Pressure Mean [Left Arm] Blood Pressure Position Pulse Oximetry Oxygen Delivery Method Sepsis Recent Fever Within 48 Hours Sepsis New/Unexplained Change in Mental Status Sepsis Action Taken by Nursing 06/16/20 17:15 06/16/20 17:20 06/16/20 17:30 Temperature Temperature Source Pulse Rate 92 H 89 95 H Pulse Rate [Left Finger] 99 H Pulse Rate from SpO2 Sensor Respiratory Rate 19 12 15 Respiratory Depth Blood Pressure 110/52 L Blood Pressure [Left Arm] 81/64 L Blood Pressure Mean 76 Blood Pressure Mean [Left Arm] 69 Blood Pressure Position Pulse Oximetry 95 Oxygen Delivery Method Room Air Sepsis Recent Fever Within 48 Hours Sepsis New/Unexplained Change in Mental Status Sepsis Action Taken by Nursing 06/16/20 17:31 06/16/20 17:40 06/16/20 17:45 Temperature Temperature Source Pulse Rate 101 H 91 H 97 H Pulse Rate [Left Finger] Pulse Rate from SpO2 Sensor 90 Respiratory Rate 14 24 18 Respiratory Depth Blood Pressure 81/64 L 94/61 L Blood Pressure [Left Arm] Blood Pressure Mean 68 66 Blood Pressure Mean [Left Arm] Blood Pressure Position Pulse Oximetry 100 99 96 Oxygen Delivery Method Sepsis Recent Fever Within 48 Hours Sepsis New/Unexplained Change in Mental Status Sepsis Action Taken by Nursing 06/16/20 18:00 06/16/20 18:01 Temperature Temperature Source Pulse Rate 98 H 98 H Pulse Rate [Left Finger] Pulse Rate from SpO2 Sensor 98 H 98 H Respiratory Rate 20 14 Respiratory Depth Blood Pressure 97/57 L Blood Pressure [Left Arm] Blood Pressure Mean 59 Blood Pressure Mean [Left Arm] Blood Pressure Position Pulse Oximetry 96 99 Oxygen Delivery Method Sepsis Recent Fever Within 48 Hours Sepsis New/Unexplained Change in Mental Status Sepsis Action Taken by Nursing Laboratory Data Result diagrams: 06/16/20 16:04 06/16/20 16:04 Lab Results 06/16/20 06/16/20 06/16/20 Range/Units 16:04 16:04 16:04 WBC 9.00 (4.8-10.8) K/uL RBC 2.32 L (4.2-5.4) M/uL Hgb 7.0 L (12.0-16.0) g/dL Hct 20.5 L* (37-47) % MCV 88.4 (80-100) fL MCH 30.2 (25-34) pg MCHC 34.1 (32-36) g/dL RDW Std Deviation 54.6 H (36.4-46.3) fL RDW Coeff of Jake 16.9 H (11.5-14.5) % Plt Count 199 (130-400) K/uL MPV 10.5 H (7.4-10.4) fL Immature Gran % (Auto) 0.3 % Neut % (Auto) 76.6 % Lymph % (Auto) 10.3 % Hyde % (Auto) 12.3 % Eos % (Auto) 0.4 % Baso % (Auto) 0.1 % Neut # (Auto) 6.88 H (1.4-6.5) K/uL Lymph # (Auto) 0.93 L (1.2-3.4) K/uL Hyde # (Auto) 1.11 H (0.11-0.59) K/uL Eos # (Auto) 0.04 (0-0.5) K/uL Baso # (Auto) 0.01 (0-0.2) K/uL Immature Gran # (Auto) 0.03 H (0.00-0.02) K/uL Target Cells 1+ PT > 90.0 H (9.0-12.0) Seconds INR > 9.7 H* (0.9-1.1) Sodium 129 L (136-145) mmol/L Potassium 2.9 L (3.5-5.1) mmol/L Chloride 96 L (98-107) mmol/L Carbon Dioxide 24 (21-32) mmol/L Anion Gap 8.0 (3-11) BUN 26 H (7-18) mg/dl Creatinine 2.22 H (0.6-1.2) mg/dl Est Cr Clr Drug Dosing 32.9 ml/min Est GFR ( Amer) 27.4 Est GFR (Non-Af Amer) 23.7 BUN/Creatinine Ratio 11.9 (10-20) Glucose 124 H (70-99) mg/dl Osmolality (280-300) mOsm/kg Calcium 8.0 L (8.5-10.1) mg/dl Magnesium 1.8 (1.8-2.4) mg/dl Total Bilirubin 0.7 (0.2-1) mg/dl AST 57 H (15-37) U/L ALT 32 (12-78) U/L Alkaline Phosphatase 210 H (45-117) U/L Ammonia (11-32) umol/L Total Creatine Kinase 185 (26-192) U/L Troponin I < 0.015 (0-0.045) ng/ml Total Protein 5.1 L (6.4-8.2) gm/dl Albumin 2.2 L (3.4-5.0) gm/dl Globulin 2.9 (2.5-4.0) gm/dl Albumin/Globulin Ratio 0.7 L (0.9-2) TSH 3.770 (0.300-4.500) uIu/ml Blood Type Antibody Screen Crossmatch 06/16/20 06/16/20 06/16/20 Range/Units 16:04 16:04 17:20 WBC (4.8-10.8) K/uL RBC (4.2-5.4) M/uL Hgb (12.0-16.0) g/dL Hct (37-47) % MCV (80-100) fL MCH (25-34) pg MCHC (32-36) g/dL RDW Std Deviation (36.4-46.3) fL RDW Coeff of Jake (11.5-14.5) % Plt Count (130-400) K/uL MPV (7.4-10.4) fL Immature Gran % (Auto) % Neut % (Auto) % Lymph % (Auto) % Hyde % (Auto) % Eos % (Auto) % Baso % (Auto) % Neut # (Auto) (1.4-6.5) K/uL Lymph # (Auto) (1.2-3.4) K/uL Hyde # (Auto) (0.11-0.59) K/uL Eos # (Auto) (0-0.5) K/uL Baso # (Auto) (0-0.2) K/uL Immature Gran # (Auto) (0.00-0.02) K/uL Target Cells PT (9.0-12.0) Seconds INR (0.9-1.1) Sodium (136-145) mmol/L Potassium (3.5-5.1) mmol/L Chloride (98-107) mmol/L Carbon Dioxide (21-32) mmol/L Anion Gap (3-11) BUN (7-18) mg/dl Creatinine (0.6-1.2) mg/dl Est Cr Clr Drug Dosing ml/min Est GFR ( Amer) Est GFR (Non-Af Amer) BUN/Creatinine Ratio (10-20) Glucose (70-99) mg/dl Osmolality 271 L (280-300) mOsm/kg Calcium (8.5-10.1) mg/dl Magnesium (1.8-2.4) mg/dl Total Bilirubin (0.2-1) mg/dl AST (15-37) U/L ALT (12-78) U/L Alkaline Phosphatase (45-117) U/L Ammonia 72.2 H (11-32) umol/L Total Creatine Kinase (26-192) U/L Troponin I (0-0.045) ng/ml Total Protein (6.4-8.2) gm/dl Albumin (3.4-5.0) gm/dl Globulin (2.5-4.0) gm/dl Albumin/Globulin Ratio (0.9-2) TSH (0.300-4.500) uIu/ml Blood Type O Positive Antibody Screen NEGATIVE Crossmatch See Detail Administered Medications Discontinued Medications Potassium Chloride (K Jorje / Wtr) 10 meq in 100 mls @ 100 mls/hr IV Q1H JACQUELYN Stop: 06/16/20 18:59 Last Infusion: 06/16/20 19:52 Dose: 0 mls/hr Documented by: [id number] Admin: 06/16/20 18:01 Dose: 100 mls/hr Documented by: [id number] Infusion: 06/16/20 18:01 Dose: 0 mls/hr Documented by: [id number] Admin: 06/16/20 17:00 Dose: 100 mls/hr Documented by: [id number] Phytonadione 10 mg/ Sodium (Chloride) 51 mls @ 102 mls/hr IV ONE ONE Stop: 06/16/20 17:16 Last Infusion: 06/16/20 17:50 Dose: 0 mls/hr Documented by: [id number] Admin: 06/16/20 17:19 Dose: 102 mls/hr Documented by: [id number] Sodium Chloride (Nss) 500 mls @ 999 mls/hr IV .Q31M ONE Stop: 06/16/20 18:12 Last Infusion: 06/16/20 18:38 Dose: 0 mls/hr Documented by: [id number] Admin: 06/16/20 17:45 Dose: 999 mls/hr Documented by: [id number] Discharge Plan Visit Data Chief Complaint: Fall Stated Complaint: Fall ED Provider: Willard Ott Discharge Problem: AMS (altered mental status), Elevated INR, Contusion, REJI (acute kidney injury), Cirrhosis, Anemia, iron deficiency Patient Disposition: Admitted As Inpatient Discharge Instructions Interventions: ED Discharge Assessment Last Done: 06/16/20 19:12 Discharge Problem: AMS (altered mental status) Qualifiers: Altered mental status type: unspecified Qualified Code(s): R41.82 - Altered mental status, unspecified Contusion Qualifiers: Encounter type: initial encounter Contusion area: knee Laterality: left Qualified Code(s): S80.02XA - Contusion of left knee, initial encounter Cirrhosis Qualifiers: Hepatic cirrhosis type: unspecified hepatic cirrhosis Ascites presence: with ascites Qualified Code(s): K74.60 - Unspecified cirrhosis of liver Anemia, iron deficiency Qualifiers: Iron deficiency anemia type: unspecified iron deficiency Qualified Code(s): D50.9 - Iron deficiency anemia, unspecified
--- NOTE | 2020-06-16 16:31 | CT Scan Report ---
CT head/brain wo con CLINICAL HISTORY: Head pain status post trauma COMPARISON STUDY: March 19, 2020 TECHNIQUE: Axial CT of the brain is performed from the vertex to the skull base. IV contrast was not administered for this examination. A dose lowering technique was utilized adhering to the principles of ALARA. CT DOSE: FINDINGS: No intra or extra-axial mass lesions are visualized. There is no CT evidence of acute cortical infarc tion. There is no evidence of midline shift. There is no acute hemorrhage. No calvarial fractures ar e visualized. There is no evidence of pathologic ventricular dilatation. There is no evidence of acute sinusitis IMPRESSION: No acute intracranial findings ACT 112: Negative or not required by law. Electronically signed by: Keith Guerra M.D. 06/16/2020 4:30 PM
[2020-06-16 16:35] LABS: Alanine Aminotransferase 32 U/L (12-78); Albumin Level 2.2 gm/dl (3.4-5.0); Aspartate Aminotransferase 57 U/L (15-37); BUN Creatinine Ratio 11.9 (10-20); Blood Urea Nitrogen 26 mg/dl (7-18); Carbon Dioxide 24 mmol/L (21-32); Chloride 96 mmol/L (98-107); Creatinine Clr Calc Pharmacy 32.9 ml/min; Est GFR (African American) 27.4; Est GFR (Non-African American) 23.7; Glucose 124 mg/dl (70-99); Magnesium 1.8 mg/dl (1.8-2.4); Potassium 2.9 mmol/L (3.5-5.1); Sodium 129 mmol/L (136-145)
--- NOTE | 2020-06-16 16:35 | CT Scan Report ---
CT OF THE CERVICAL SPINE CLINICAL HISTORY: Neck pain status post trauma COMPARISON STUDY: No previous studies for comparison. CT DOSE: 893.88 mGy.cm TECHNIQUE: CT scan of the cervical spine was performed from the skull base to the thoracic inlet. Chitra ges are reviewed in the axial, sagittal, and coronal planes. IV contrast was not administered for thi s examination. A dose lowering technique was utilized adhering to the principles of ALARA. FINDINGS: There is an exophytic 2 cm right lobe thyroid nodule. Nonemergent thyroid ultrasonography is recommen ded in follow-up. There is no apical pneumothorax The prevertebral soft tissues are normal. No acute fractures or traumatic subluxations are visualize d. There are multilevel degenerative changes. 2 mm of anterolisthesis of C3 on C4 is felt to be degenera tive. 2 mm of retrolisthesis of C5 on C6 is felt to be degenerative. There is a mild superior endplat e C7 compression deformity which is felt to be old. IMPRESSION: 1. No evidence of acute fracture or traumatic subluxation 2. 2 cm right lobe thyroid nodule. Nonemergent thyroid ultrasonography is recommended in follow-up. ACT 112: Negative or not required by law. Electronically signed by: Keith Guerra M.D. 06/16/2020 4:34 PM
[2020-06-16 16:37] LABS: Prothrombin Time > 90.0 Seconds (9.0-12.0)
[2020-06-16 16:39] LABS: Hematocrit (blood only) 20.5 % (37-47); Mean Corpuscular Hemoglobin 30.2 pg (25-34); Mean Corpuscular Hgb Conc 34.1 g/dL (32-36); Mean Corpuscular Volume 88.4 fL (80-100); Mean Platelet Volume 10.5 fL (7.4-10.4); Platelet Count 199 K/uL (130-400); RDW Coefficient of Variation 16.9 % (11.5-14.5); RDW Standard Deviation 54.6 fL (36.4-46.3); Red Blood Count 2.32 M/uL (4.2-5.4)
[2020-06-16] MEDS ORDERED: SODIUM CHLORIDE 0.9% 250 ML IV PRN ×2 (16:41→19:49)
[2020-06-16 16:46] LABS: Albumin Globulin Ratio 0.7 (0.9-2); Alkaline Phosphatase 210 U/L (45-117); Bilirubin,Total 0.7 mg/dl (0.2-1); Creatine Kinase 185 U/L (26-192); Globulin 2.9 gm/dl (2.5-4.0); Total Protein 5.1 gm/dl (6.4-8.2); Troponin I < 0.015 ng/ml (0-0.045)
[2020-06-16] MEDS ORDERED: PHYTONADIONE 10 MG in SODIUM CHLORIDE 0.9% 50 ML IV ONE (16:47)
[2020-06-16 16:49] LABS: INR > 9.7 (0.9-1.1)
[2020-06-16 16:55] LABS: Basophils # (auto) 0.01 K/uL (0-0.2); Basophils % (auto) 0.1 %; Eosinophils # (auto) 0.04 K/uL (0-0.5); Eosinophils % (auto) 0.4 %; Immature Granulocytes # (auto) 0.03 K/uL (0.00-0.02); Immature Granulocytes % (auto) 0.3 %; Lymphocytes # (auto) 0.93 K/uL (1.2-3.4); Lymphocytes % (auto) 10.3 %; Monocytes # (auto) 1.11 K/uL (0.11-0.59); Monocytes % (auto) 12.3 %; Neutrophils # (auto) 6.88 K/uL (1.4-6.5); Neutrophils % (auto) 76.6 %; Target Cells 1+
[2020-06-16] MEDS: POTASSIUM CHLORIDE / WTR 10 MEQ/100 ML PLCT IV SCH ×2 (17:00→18:01)
--- NOTE | 2020-06-16 17:01 | XRay Report ---
XR chest 1V portable CLINICAL HISTORY: weakness COMPARISON STUDY: June 03, 2018 FINDINGS: The heart is the upper limits of normal in size. There is no failure. There is no focal pul monary consolidation. There are no pleural effusions. A right proximal humeral arthroplasty is partia lly visualized[ IMPRESSION: No active disease in the chest. ACT 112: Negative or not required by law. Electronically signed by: Keith Guerra M.D. 06/16/2020 5:00 PM
--- NOTE | 2020-06-16 17:03 | XRay Report ---
XR knee LT 1 or 2V routine CLINICAL HISTORY: Left knee pain status post trauma COMPARISON: October 03, 2018 DISCUSSION: An intramedullary tibial miki is again visualized. There are moderately advanced tricompar tment arthritic changes within the knee. No acute fractures are visualized. There is anterior soft ti ssue swelling at the level of the superior margin of the patella IMPRESSION: 1. No acute fractures 2. Advanced tricompartment osteoarthritic change 3. Postsurgical changes within the tibia 4. Soft tissue swelling ACT 112: Negative or not required by law. Electronically signed by: Keith Guerra M.D. 06/16/2020 5:01 PM
[2020-06-16] MEDS ORDERED: SODIUM CHLORIDE 0.9% 500 ML IV ONE (17:42)
[2020-06-16] MEDS ORDERED: POTASSIUM CHLORIDE 20 MEQ TABCR PO STA (18:45)
--- NOTE | 2020-06-16 19:13 | History & Physical Report ---
Date of Service June 16, 2020 Assessment & Plan (1) Decompensated hepatic cirrhosis: This is a 60-year-old female who has significant past medical history of DAVIS/Alcoholic Cirrhosis, PAF anticoagulated on warfarin, CKD stage III, hypothyroidism, history of gastric bypass, history of anastomotic ulcer, chronic pain syndrome, depression, history of C. difficile who presents to ED secondary to fall prior to arrival. In ED patient was hypotensive upon arrival and was tachycardic. She was otherwise afebrile and saturating well on room air. Notable lab abnormalities include decreased H&H to 7.0 and 20.5, INR greater than 9.7, sodium 129, K2.9, chloride 96, BUN 26, creatinine 2.22, AST 57, ammonia 72.2. She had head CT which was without acute abnormality. Left knee x-ray revealed tricompartmental arthritis otherwise no abnormality. Chest x-ray was without acute abnormality. CT of c spine 2 cm right lobe thyroid nodule. Nonemergent thyroid ultrasonography is recommended in follow-up. She received 500ml IVF in ED along with 20meq KCL K rider. BP did improve to low 100s systolically. Admit to PCU replete patient volume with 2 unit PRBC and lasix 40mg IV with albumin in between units pt will need gentle diuresis given profound lower ext edema, 20lb weight gain once PRBC transfused daily weight, strict I and O GI consulted consider adding aldactone when electrolytes more stable Reverse Warfarin, Goal INR 2-3. repeat labs 9pm (2) Acute metabolic encephalopathy: pt with elevated NH3, although a&Ox3 she is drowsy and slowed speech hepatic encephalopathy likely playing component along with concern for dilaudid misuse According to family member she recently got filled on 06/11 with 75 tablets. They are now only 20 tablets left. drug tox screen ordered, limit sedating medications Lactulose 45ml daily (pt not taking at home) (3) Anemia: H&H 7.0 and 20.5 Prior hemoglobin on 05/30 8.6, in April 9.9 and 12/22 12.4 No apparent active bleeding FOBT, anemia studies Transfuse 2 units PRBC with 40mg IV lasix + albumin inbetween units repeat H/H this evening (4) Acute renal failure superimposed on stage 3 chronic kidney disease: baseline cr 1.3 bun/cr 26 and 2.2 likely in setting of hypovolemia in setting of anemia, ATN 2/2 to poor perfusion UA and urine studies ordered (5) Supratherapeutic INR: 10mg Vit K given in ED repeat PT/INR at 9pm - will re assess need for additional reversal no s/sx of active bleeding at this time monitor closely (6) Hypokalemia: K 2.9, likely in setting of diuretic use and pt states having 6-8 BM daily received 20 meq KCL while in ED order 40meq KCL orally repeat bmp 9pm and in am., replete as needed (7) Hyponatremia: Na 129, Chronic likely in setting of ETOH abuse urine na, osm and serum osm ordered received IVF in ED repeat bmp 9pm low threshold for nephro consult (8) Paroxysmal A-fib: She is on warfarin for stroke prophylaxis INR supratherapeutic greater than 9.7 Received 10 mg IV vitamin K Repeat INR at 9 PM She is not on any rate or rhythm control medications (9) Effusion, left knee: Left knee effusion with appearance of hematoma In setting of supratherapeutic INR concern for traumatic hematoma Consult orthopedics Ice to knee 3 times daily Reduced INR to subtherapeutic in event aspiration needed (10) Chronic pain syndrome: Patient chronically on Dilaudid 2 mg in a.m. and p.m. and 1 mg at lunch as needed According to family member she recently got filled on 06/11 with 75 tablets. They are now only 20 tablets left. Drug screen ordered This is possibly playing a factor in her encephalopathy, patient denies taking excessive Dilaudid (11) Hypothyroidism: continue levothyroxine (12) Ambulatory dysfunction: with freq fall pt will need PT/OT consults when more stable (13) Thyroid nodule: CT C spine revealed 2 cm right lobe thyroid nodule. Nonemergent thyroid ultrasonography is recommended in follow-up. (14) DVT prophylaxis: History of Present Illness Chief Complaint: Fall prior to arrival. Primary Care Provider: Naresh Bro MD This is a 60-year-old female who has significant past medical history of DAVIS/Alcoholic Cirrhosis, PAF anticoagulated on warfarin, CKD stage III, hypothyroidism, history of gastric bypass, history of anastomotic ulcer, chronic pain syndrome, depression, history of C. difficile who presents to ED secondary to fall prior to arrival. Of note she has had 3 falls this past week. She denies any loss of consciousness or syncope. Falls are secondary to off balance and being unsteady. Today she was found with face on floor. She admits to hitting her head twice this past week. Today she also sustained a traumatic fall onto left knee with significant pain. Other than frequent falls she is otherwise been feeling, "okay." She admits to having approximately 6-8 bowel movements daily and therefore she is not taking her lactulose. She continues to have chronic pain to takes Dilaudid 3 times daily as needed. She denies any documented fever but does complain of chills. She denies any sweats, lightheadedness, dizziness, syncope, chest pain, cough, hemoptysis, emesis, hematemesis, abdominal pain, dysuria, increased urgency or frequency with urination, hematuria, melena, hematochezia. Stools, "are cirrhosis like and yellow." She did have one episode of epistaxis a few days ago secondary to fall but was able to stop bleeding. She admits to being compliant with medications. She is currently taking torsemide 60 mg daily which was recently increased. She does not take any potassium supplementation. Admits to 20lb weight gain in last 2 weeks with worsened lower ext edema. In regards to alcohol use she is drinking daily. Last drink was yesterday. She admits to drinking 2-3 alcoholic beers daily. There is also concern regarding Dilaudid use. Family member called in stating she recently had it filled on 06/11 with 75 tablets and currently there is only 20 tablets left. She denies taking excess Dilaudid. She becomes very tearful when questioned and states that current times are very hard for her as she is here alone and most of her family is in [place]. In ED patient was hypotensive upon arrival and was tachycardic. She was otherwise afebrile and saturating well on room air. Notable lab abnormalities include decreased H&H to 7.0 and 20.5, INR greater than 9.7, sodium 129, K2.9, chloride 96, BUN 26, creatinine 2.22, AST 57, ammonia 72.2. She had head CT which was without acute abnormality. Left knee x-ray revealed tricompartmental arthritis otherwise no abnormality. Chest x-ray was without acute abnormality. CT of c spine 2 cm right lobe thyroid nodule. Nonemergent thyroid ultrasonography is recommended in follow-up. She received 500ml IVF in ED along with 20meq KCL K rider. BP did improve to low 100s systolically. Allergies Allergy/AdvReac Type Severity Reaction Status Date / Time cefaclor Allergy Intermediate Swelling Verified 06/16/20 16:22 oxycodone Allergy Intermediate HIVES Verified 06/16/20 16:22 amoxicillin Allergy Mild Nausea Verified 06/16/20 16:22 ceftriaxone [From Rocephin] Allergy Rash Verified 06/16/20 16:22 metronidazole [From Flagyl] Allergy Rash Verified 06/16/20 16:22 Home Medications Home Medications Medication Instructions Recorded Confirmed Type cyanocobalamin (vitamin B-12) 1,000 mcg PO QAM 08/22/18 06/16/20 History [Vitamin B-12] hydromorphone [Dilaudid] 2 mg PO BID PRN 08/22/18 06/16/20 History levothyroxine [Synthroid] 75 mcg PO QAM 08/22/18 06/16/20 History magnesium oxide 400 mg PO BID 08/22/18 06/16/20 History multivitamin 1 tab PO QAM 08/22/18 06/16/20 History ondansetron HCl [Zofran] 4 mg PO Q8 PRN 08/22/18 06/16/20 History sucralfate [Carafate] 1 g PO BID PRN 08/22/18 06/16/20 History zinc sulfate 220 mg PO QAM 08/22/18 06/16/20 History cholecalciferol (vitamin D3) 4,000 unit PO DAILY 10/03/18 06/16/20 History [Vitamin D3] rifaximin [Xifaxan] 550 mg PO BID 10/03/18 06/16/20 History duloxetine [Cymbalta] 60 mg PO QAM 07/19/19 06/16/20 History lactulose [Generlac] 45 ml PO DAILY PRN 07/19/19 06/16/20 History pantoprazole [Protonix] 40 mg PO BID 07/19/19 06/16/20 History gabapentin [Neurontin] 600 mg PO BID 03/19/20 06/16/20 History diphenhydramine HCl [Benadryl] 25 mg PO Q6 PRN #15 cap 03/23/20 06/16/20 Rx cetirizine [Zyrtec] 10 mg PO QAM 04/05/20 06/16/20 History warfarin [Coumadin] 6 - 10 mg PO HS 04/05/20 06/16/20 History Probiotic 1 cap PO TID 06/16/20 06/16/20 History ferrous sulfate 220 mg PO DAILY 06/16/20 06/16/20 History hydromorphone [Dilaudid] 1 mg PO .DAILY @ LUNCH PRN 06/16/20 06/16/20 History torsemide 60 mg PO DAILY 06/16/20 06/16/20 History Past Med/Surg History Medical History Anemia, iron deficiency Ascites Cirrhosis CKD (chronic kidney disease) stage 3, GFR 30-59 ml/min Depression Gastric peptic ulcer Hypothyroidism Neuropathy of both feet On anticoagulant therapy warfarin daily Paroxysmal A-fib Surgical History History of arthrodesis left leg History of arthroplasty of right shoulder unable to lift arm after sx History of arthroscopy of left knee x2 History of arthroscopy of right knee x7 History of cardiac cath 2011--no stents History of cholecystectomy History of colonoscopy History of esophagogastroduodenoscopy (EGD) History of gastric bypass History of open reduction and internal fixation (ORIF) procedure left tib/fib fx--hardware in place History of surgery on extremity 2016--right leg hardware in place per pt a "fusion of her leg" History of tooth extraction all teeth removed History of total right knee replacement (TKR) 2006 Family History Sister Breast cancer Mother Hypertension Diabetes Other No family history of adverse response to anesthesia Social History Smoking Status: Never smoker Second Hand Exposure: No; Do You Dip or Chew Tobacco: No; Tobacco Cessation Education Requested by Patient: No Hx Alcohol Use: Yes Alcohol type: beer Alcohol Intake Frequency: 4 or More x per/Week Alcohol Intake Frequency Comment: daily, 2-3 beers Hx Substance Use: No Preferred Language: Indian Communication Ability: Effective Pelletizer Operator Required: No Beliefs That Will Affect Care: None Current Living Situation: Alone Other Information That Helps Us Care for You: No Feels Safe at Home: Yes Safety Concerns: Feels Safe At This Time Review of Systems Review of Systems: All systems reviewed & are unremarkable except as noted in HPI & below Physical Exam Physical Exam: Constitutional: Chronically Ill appearing female, vitals as above, NAD, sitting up in bed, answers questions appropriately, drowsy Head: Normocephalic, +ecchymosis to L frontal forehead Eyes: PERRL, conjunctivae normal, anicteric sclerae ENMT: external ear and nose normal, oropharynx normal dry mucous membranes Neck: trachea midline, no thyromegaly normal visual inspection Respiratory: normal respiratory effort, lungs clear to auscultation, no wheeze, rales, rhonchi. Normal insp/exp effort, no accessory muscle use Cardiovascular: tachycardic rate, regular rhythm +3 lower ext edema extending to proximal thigh. Vessels: no JVD or carotid bruit Chest: normal inspection of chest Abdomen: normal bowel sounds, soft, nontender, no hepatosplenomegaly Musculoskeletal: no cyanosis or clubbing, decreased AROM to RUE 2/2 to joint prosthesis, Decrease AROM to RLE 2/2 to R knee explant, Significant ecchymosis to L knee with effusion, displacement of patella (pt with hx of chronically dislocated patella), AROM to LLE, decreased knee flexion, b/l pedal pulse +1 Skin: no rashes, warm and dry normal turgor Neurologic: PERRL, EOMI, accommodation nl, no face palsy, no dysarthria CN's II-XI intact bilaterally and moves all extremities Psychiatric: A+Ox3, but drowsy, euthymic affect Lymphatic: no cervical or axillary lymphadenopathy : deferred Results & Data Results & Data ([facility]) Vital Signs (Past 12 Hours) Vital Signs Temp Pulse Pulse Resp BP BP Pulse Ox 06/16/20 18:31 93 H 18 104/42 L 06/16/20 18:30 98 H 18 06/16/20 18:20 101 H 20 06/16/20 18:16 102 H 18 114/74 06/16/20 18:10 98 H 17 06/16/20 18:01 98 H 14 97/57 L 99 08/15/20 18:00 98 H 20 96 08/15/20 17:45 97 H 18 94/61 L 96 06/16/20 17:40 91 H 24 99 06/16/20 17:31 101 H 14 81/64 L 100 06/16/20 17:30 95 H 99 H 15 81/64 L 95 06/16/20 17:20 89 12 06/16/20 17:15 92 H 19 110/52 L 06/16/20 17:13 90 14 84/48 L 06/16/20 17:10 93 H 15 06/16/20 17:00 90 15 06/16/20 16:30 90 14 98 06/16/20 16:01 95 06/16/20 16:00 89 22 06/16/20 15:54 36.7 C 92 H 18 121/74 96 06/16/20 15:53 99 H 17 97 06/16/20 15:38 89 12 121/74 94 Laboratory Results Short CBC 06/16/20 06/16/20 Range/Units 16:04 16:04 WBC 9.00 (4.8-10.8) K/uL Hgb 7.0 L (12.0-16.0) g/dL Hct 20.5 L* (37-47) % MCV 88.4 (80-100) fL Plt Count 199 (130-400) K/uL Sodium 129 L (136-145) mmol/L Creatinine 2.22 H (0.6-1.2) mg/dl BMP 06/16/20 16:04 Sodium 129 L Potassium 2.9 L Chloride 96 L Carbon Dioxide 24 BUN 26 H Creatinine 2.22 H Glucose 124 H Calcium 8.0 L Cardiac Enzymes 06/16/20 Range/Units 16:04 Total Creatine Kinase 185 (26-192) U/L Troponin I < 0.015 (0-0.045) ng/ml Liver Function 06/16/20 Range/Units 16:04 Total Bilirubin 0.7 (0.2-1) mg/dl AST 57 H (15-37) U/L ALT 32 (12-78) U/L Alkaline Phosphatase 210 H (45-117) U/L Albumin 2.2 L (3.4-5.0) gm/dl Diagnostic Findings CXR: IMPRESSION: No active disease in the chest. Head CT: FINDINGS: No intra or extra-axial mass lesions are visualized. There is no CT evidence of acute cortical infarction. There is no evidence of midline shift. There is no acute hemorrhage. No calvarial fractures are visualized. There is no evidence of pathologic ventricular dilatation. There is no evidence of acute sinusitis IMPRESSION: No acute intracranial findings Knee Xray: IMPRESSION: 1. No acute fractures 2. Advanced tricompartment osteoarthritic change 3. Postsurgical changes within the tibia 4. Soft tissue swelling Cspine CT: IMPRESSION: 1. No evidence of acute fracture or traumatic subluxation 2. 2 cm right lobe thyroid nodule. Nonemergent thyroid ultrasonography is recommended in follow-up. Medications Administered Discontinued Medications Potassium Chloride (K Jorje / Wtr) 10 meq in 100 mls @ 100 mls/hr IV Q1H JACQUELYN Stop: 06/16/20 18:59 Last Admin: 06/16/20 18:01 Dose: 100 mls/hr Documented by: [id number] Infusion: 06/16/20 18:01 Dose: 0 mls/hr Documented by: [id number] Admin: 06/16/20 17:00 Dose: 100 mls/hr Documented by: [id number] Phytonadione 10 mg/ Sodium (Chloride) 51 mls @ 102 mls/hr IV ONE ONE Stop: 06/16/20 17:16 Last Infusion: 06/16/20 17:50 Dose: 0 mls/hr Documented by: [id number] Admin: 06/16/20 17:19 Dose: 102 mls/hr Documented by: [id number] Sodium Chloride (Nss) 500 mls @ 999 mls/hr IV .Q31M ONE Stop: 06/16/20 18:12 Last Infusion: 06/16/20 18:38 Dose: 0 mls/hr Documented by: [id number] Admin: 06/16/20 17:45 Dose: 999 mls/hr Documented by: [id number] ECG Rate (beats per minute): 89 Rhythm: normal sinus Code Status & VTE Plan Code Status Full Code VTE Prophylaxis Plan VTE Prophylaxis will be ordered: Yes Reason for no VTE drug order: Contraindicated Reason for no VTE mechanical prophylaxis: Contraindicated (supratherapeutic INR) Supervising Physician Co-Signing Physician Notes I have seen and examined the patient and have discussed the case with the provid er above. I agree with the assessment and plan as stated with the following exceptions. 60 yo alcoholic cirrhotic female presented for multiple falls and bruising with most recent fall occurring today. She has bruising on her left jaw area as she had fallen forward onto her face. She reports ambulating with a walker or cane still, even this morning. She has significant ecchymosis especially around the left knee. Interestingly her right knee looks better but she has more pain on the right knee and limited ROM 2/2 OA s/p R knee replacement with subsequent spacer placement. She appears intoxicated after trying to converse with her over 3-5 minutes. She is lethargic with some slurring of speech but otherwise no gross focal neuro deficits. Mild asterixis is present. Heart rhythm appears regular and lung are clear to auscultation bilaterally. Abdomen is nondistended and nontender with no pain to palpation. Negative fluid wave. She is obese. She is oriented in 3 spheres. She is able to sit up in bed with minimal assistance. Agree with plan above, except patient would like to try Miralax instead of Lactulose. She reports 2 BMs today but she told the PA initially that she has avoided lactulose recently. She also report 20 lb weight gain in the last 2 weeks. She denies SOB or chest pain. She is reporting severe depression being isolated during the pandemic of novel ashley navirus. It is possible she is overdosing on Dilaudid based on the timing of her last prescription and what is left in her bottle. This may be contributing to her lethargy, but agree with metabolic encephalopathy 2/2 decompensated cirrhosis 2/2 HE. 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
[2020-06-16] MEDS ORDERED: SUCRALFATE 1 GM TAB PO PRN (19:49)
[2020-06-16] MEDS ORDERED: GABAPENTIN 600MG ALCOHOL WITHDRAWAL LOAD PO STA (19:49)
[2020-06-16] MEDS ORDERED: HYDROmorphone HCL 2 MG TAB PO PRN (19:49)
[2020-06-16] MEDS ORDERED: LORazepam 1 MG/2 ML VIAL IV PRN (19:49)
[2020-06-16] MEDS ORDERED: ALBUMIN 25% 50 ML with FUROSEMIDE 40 MG IV SCH (20:00)
[2020-06-16] MEDS ORDERED: GABAPENTIN 600 MG TAB PO ONE (20:15)
[2020-06-16] MEDS ORDERED: LACTULOSE SYRUP 30 GM/45 ML UDP PO SCH (20:15)
[2020-06-16] MEDS: FOLIC ACID 1 MG TAB PO SCH (20:44)
[2020-06-16] MEDS: RIFAXIMIN 550 MG TABLET PO SCH (20:44)
[2020-06-16] MEDS: THIAMINE HCL 100 MG TAB PO SCH (20:44)
[2020-06-16] MEDS: PANTOprazole 40 MG TAB PO SCH (20:44)
[2020-06-16] MEDS: MAGNESIUM OXIDE 400 MG TAB PO SCH (20:44)
[2020-06-16 20:47] LABS: Appearance Urine Slightly Cloudy (Clear); Bilirubin Urine Negative (Negative); Blood Urine Negative (Negative); Color Urine Yellow; Glucose Urine UA Negative (Negative); Ketones Urine Negative (Negative); Leukocyte Esterase Urine 1+ (Negative); Nitrite Urine Negative (Negative); Protein Urine Negative (Negative); Specific Gravity Urine 1.025 (1.000-1.030); Urobilinogen Urine Negative (Negative); pH Urine 5.5 (4.5-7.5)
[2020-06-16 20:55] LABS: Bacteria Urine 4+ (Negative); Epithelial Cell Urine 20-30 /lpf (0-5)
[2020-06-16 20:56] LABS: RBC Urine 0-4 /hpf (0-4); WBC Urine >30 /hpf (0-5)
[2020-06-16 21:07] LABS: Amphetamines+Metham, Urine Neg (Neg); Barbiturates, Urine Neg (Neg); Benzodiazepine, Urine Neg (Neg); Cocaine, Urine Neg (Neg); MDMA (Ecstacy), Urine Neg (Neg); Methadone, Urine Neg (Neg); Opiate, Urine Pos (Neg); Phencyclidine, Urine Neg (Neg)
[2020-06-16] MEDS: HYDROmorphone HCL 2 MG TAB PO PRN (22:31)
[2020-06-16 22:45] LABS: Ferritin 446.5 ng/ml (8-388)
[2020-06-17] MEDS: GABAPENTIN 100 MG CAP PO SCH ×2 (01:56→07:56)
[2020-06-17 02:57] LABS: Hematocrit (blood only) 21.1 % (37-47); Hemoglobin 7.2 g/dL (12.0-16.0); Mean Corpuscular Hemoglobin 29.1 pg (25-34); Mean Corpuscular Hgb Conc 34.1 g/dL (32-36); Mean Corpuscular Volume 85.4 fL (80-100); Mean Platelet Volume 9.6 fL (7.4-10.4); Platelet Count 141 K/uL (130-400); RDW Coefficient of Variation 17.5 % (11.5-14.5); RDW Standard Deviation 55.4 fL (36.4-46.3); Red Blood Count 2.47 M/uL (4.2-5.4); White Blood Count 11.83 K/uL (4.8-10.8)
[2020-06-17 03:10] LABS: INR 2.5 (0.9-1.1); Prothrombin Time 25.4 Seconds (9.0-12.0)
[2020-06-17 03:22] LABS: Albumin Globulin Ratio 0.8 (0.9-2); Albumin Level 2.1 gm/dl (3.4-5.0); BUN Creatinine Ratio 12.5 (10-20); Bilirubin,Total 1.5 mg/dl (0.2-1); Calcium 7.2 mg/dl (8.5-10.1); Creatinine Clr Calc Pharmacy 34.5 ml/min; Est GFR (African American) 29.2; Est GFR (Non-African American) 25.2; Globulin 2.5 gm/dl (2.5-4.0); Magnesium 1.8 mg/dl (1.8-2.4); Potassium 3.5 mmol/L (3.5-5.1); Total Protein 4.6 gm/dl (6.4-8.2)
[2020-06-17] MEDS ORDERED: SODIUM CHLORIDE 0.9% 250 ML IV PRN ×3 (03:30→22:22)
[2020-06-17 03:41] LABS: Folate (Folic Acid) 12.85 ng/ml (>5.38); Vitamin B12 > 2000 pg/ml (211-911)
[2020-06-17] MEDS ORDERED: POTASSIUM CHLORIDE 40 MEQ in SODIUM CHLORIDE 0.9% 1000ML 1,000 ML IV ONE (04:43)
[2020-06-17] MEDS: LEVOTHYROXINE SODIUM 75 MCG TABLET PO SCH (06:03)
[2020-06-17] MEDS: ALBUMIN 5% 250 ML IV SCH ×2 (06:20→12:10)
[2020-06-17] MEDS: PANTOprazole 40 MG TAB PO SCH ×2 (07:38→20:08)
[2020-06-17] MEDS: MAGNESIUM OXIDE 400 MG TAB PO SCH ×2 (07:53→20:08)
[2020-06-17] MEDS: CHOLECALCIFEROL 1,000 UNITS 25 MCG TAB PO SCH (07:55)
[2020-06-17] MEDS: THIAMINE HCL 100 MG TAB PO SCH (07:55)
[2020-06-17] MEDS: FOLIC ACID 1 MG TAB PO SCH (07:56)
[2020-06-17] MEDS: DULOXETINE HCL 60 MG CAP PO SCH (07:56)
[2020-06-17] MEDS: MULTIVITAMIN TAB PO SCH (07:58)
[2020-06-17] MEDS: CYANOCOBALAMIN 500 MCG TABLET (VITAMIN B-12) PO SCH (07:58)
[2020-06-17] MEDS: RIFAXIMIN 550 MG TABLET PO SCH ×2 (07:58→20:08)
[2020-06-17] MEDS: ZINC SULFATE 220 MG CAPSULE PO SCH (07:59)
[2020-06-17] MEDS: POLYETHYLENE (MIRALAX) 17 GM PACK PO SCH ×2 (07:59→16:32)
[2020-06-17] MEDS ORDERED: FERROUS SULFATE ELIX 220MG/5ML PO SCH ×2 (09:00)
[2020-06-17] MEDS: HYDROmorphone HCL 2 MG TAB PO PRN (09:02)
[2020-06-17] MEDS ORDERED: AZTREONAM CONSULT ACTIVE PRN (10:23)
[2020-06-17 10:33] LABS: Hematocrit (blood only) 20.9 % (37-47); Hemoglobin 7.2 g/dL (12.0-16.0); Mean Corpuscular Hemoglobin 29.4 pg (25-34); Mean Corpuscular Hgb Conc 34.4 g/dL (32-36); Mean Corpuscular Volume 85.3 fL (80-100); Mean Platelet Volume 9.8 fL (7.4-10.4); Platelet Count 114 K/uL (130-400); RDW Coefficient of Variation 17.2 % (11.5-14.5); RDW Standard Deviation 53.6 fL (36.4-46.3); Red Blood Count 2.45 M/uL (4.2-5.4); White Blood Count 7.94 K/uL (4.8-10.8)
[2020-06-17] MEDS ORDERED: AZTREONAM 1,000 MG in DEXTROSE 5% 100 ML IV SCH (11:00)
[2020-06-17 11:01] LABS: Anisocytosis Present; Basophils # (auto) 0.01 K/uL (0-0.2); Basophils % (auto) 0.1 %; Eosinophils # (auto) 0.07 K/uL (0-0.5); Eosinophils % (auto) 0.9 %; Hypochromasia Present; Immature Granulocytes # (auto) 0.03 K/uL (0.00-0.02); Immature Granulocytes % (auto) 0.4 %; Lymphocytes % (auto) 15.1 %; Monocytes # (auto) 0.92 K/uL (0.11-0.59); Monocytes % (auto) 11.6 %; Neutrophils # (auto) 5.71 K/uL (1.4-6.5); Neutrophils % (auto) 71.9 %
[2020-06-17 11:12] LABS: Albumin Level 2.2 gm/dl (3.4-5.0); BUN Creatinine Ratio 12.4 (10-20); Bilirubin Direct 0.7 mg/dl (0-0.2); Calcium 7.3 mg/dl (8.5-10.1); Creatinine Clr Calc Pharmacy 35.8 ml/min; Est GFR (African American) 30.7; Est GFR (Non-African American) 26.5; Magnesium 1.9 mg/dl (1.8-2.4); Potassium 3.3 mmol/L (3.5-5.1)
[2020-06-17 11:19] LABS: INR 1.7 (0.9-1.1); Prothrombin Time 17.6 Seconds (9.0-12.0)
[2020-06-17 11:21] LABS: Albumin Globulin Ratio 0.8 (0.9-2); Bilirubin,Total 1.5 mg/dl (0.2-1); Globulin 2.6 gm/dl (2.5-4.0); Phosphorus 4.5 mg/dl (2.5-4.9); Total Protein 4.8 gm/dl (6.4-8.2)
--- NOTE | 2020-06-17 11:21 | Nephrology Consultation ---
Date of Consultation June 17, 2020 Assessment & Plan (1) Acute on chronic renal failure: Baseline creatinine 1.3 in late May; I doubt she was on any diuretics at that time though had been rx'd torsemide 20 mg daily for months (based on wts and chemistries Dec-June 2020). Unclear what her new baseline with be on what will be obligate diuretics. Torsemide dose increased to 60 mg daily on 06/12. Pt presented 06/16 with creatinine 2.2. Her real creatinine is likely MUCH higher given her overload and cirrhosis; this is new and severe renal failure even though numbers may not seem that way. >>may need to consider lower gabapentin dose since higher doses can cause encephalopathy with renal failure >> defer to primary service -diuretic and other fluid mgt as below -no indication for urgent dialysis and she may not be a candidate if need arises ->>>pls order bmp at least 2X daily timed to coincide with hgb checks >>pls order non emergent renal u/s as a baseline study Present on Admission?: Yes (2) Hypokalemia: Presented with K 2.9 on 06/16, up to 3.3 on 06/17. -started standing K 40 mEq bid granules to be given with minimal fluid, first dose now >>>follow up repeat K on recheck bmp Present on Admission?: Yes (3) Decompensated hepatic cirrhosis: with severe volume overload >on daptomycin (dosed in a syringe) and aztreonam (dosed in 100 mL D5W) >> d/w pharmacy and they will concentrate aztreonam in 50 mL per dose or less >ordered FR 1.5L; may need 1.2 L but start here; ordered <2 gm daily Na diet (Heart healthy diet is 3 gm daily Na) >stopped albumin and started lasix 40 mg IV tid with albumin, first dose now >ordered daily standing weight: recorded standing first wt on 06/16 is 102.7 kg -f/u imaging for possible paracentesis -would not start spironolactone at this time given changing renal function -follow up on other GI recs per their consult -will stop po iron in this liver patient >> after pRBC her iron studies will not be accurate Present on Admission?: Yes History of Present Illness Reason for Consultation: REJI in setting of liver cirrhosis Requesting Physician: Dr Andre Attending Physician: Roddy Andre MD History of Present Illness 60 y/o F whom I'm asked to evaluate for acute kidney injury was admitted last evening for management of hepatic encephalopathy -/+ toxic encephalopathy from opiates and after a fall with injury to her L jaw and L knee; also with reported 20 lb wt gain over the past few weeks. PMH includes DAVIS/EtOH cirrhosis, chronic ambulatory dysfunction using cane/walker at baseline and with recurrent falls, pAF on warfarin, CKD3, hypothyroid, s/p gastric bypass with anastomatic ulcer, depression, chronic pain on chronic narcotics, hx of C diff diarrhea, OA R shoulder, s/p L TKA. She was 102.7 kg on standing scale on 06/16 on presentation to ER; tells me that 4-6 wks ago she got a home scale per clinic instructions and weighed 199 lb at that time; also notes clothes too tight lately. She had been on demadex 20 mg daily started in late December and increased to 60 mg daily on 06/12. Also endorses ibuprofen use daily for 3 days prior to admission. Her baseline creatinine is 1.3 (in late May on 20 mg daily demadex if she was actually taking it << a bit skeptical that she was taking because her weight was 222 lb in clinic on 06/12 and 227 lb in clinic in December the day she started demadex); her creatinine was 2.2 on arrival with presenting K 2.9, presenting Na 129; presenting INR >9.7. Currently drinks 2-3 beers daily per her report. Having 6-8 BM daily prior to admission and therefore had been holding her lactulose. Also noted to have fewer pain pills left than she otherwise should have. [facility] clinic weights reviewed in [facility]: she has been in low to mid 220 lb range from Dec 2019 - 06/12/2020 (3 readings and only one outside of Dec). Does not follow in CKD clinic; her baseline creatinine has been 1.3 since at least 10/2019. No recent documented OP proteinuria status. Last evening, she was given 2 units pRBC on presentation. Had one time dose of albumin/lasix 40 mg IV last evening; currently on albumin 5% IV q 6h, no diuretic, no K supplements, aztreonam and daptomycin. Ortho following and pt likely to need aspiration of L knee hemarthrosis or possibly open washout but all deferred until medically stabilized. her creatinine is 2.0 today and K 3.3. Allergies Allergy/AdvReac Type Severity Reaction Status Date / Time cefaclor Allergy Intermediate Swelling Verified 06/16/20 16:22 oxycodone Allergy Intermediate HIVES Verified 06/16/20 16:22 amoxicillin Allergy Mild Nausea Verified 06/16/20 16:22 ceftriaxone [From Rocephin] Allergy Rash Verified 06/16/20 16:22 metronidazole [From Flagyl] Allergy Rash Verified 06/16/20 16:22 Home Medications Home Medications Medication Instructions Recorded Confirmed Type cyanocobalamin (vitamin B-12) 1,000 mcg PO QAM 08/22/18 06/16/20 History [Vitamin B-12] hydromorphone [Dilaudid] 2 mg PO BID PRN 08/22/18 06/16/20 History levothyroxine [Synthroid] 75 mcg PO QAM 08/22/18 06/16/20 History magnesium oxide 400 mg PO BID 08/22/18 06/16/20 History multivitamin 1 tab PO QAM 08/22/18 06/16/20 History ondansetron HCl [Zofran] 4 mg PO Q8 PRN 08/22/18 06/16/20 History sucralfate [Carafate] 1 g PO BID PRN 08/22/18 06/16/20 History zinc sulfate 220 mg PO QAM 08/22/18 06/16/20 History cholecalciferol (vitamin D3) 4,000 unit PO DAILY 10/03/18 06/16/20 History [Vitamin D3] rifaximin [Xifaxan] 550 mg PO BID 10/03/18 06/16/20 History duloxetine [Cymbalta] 60 mg PO QAM 07/19/19 06/16/20 History lactulose [Generlac] 45 ml PO DAILY PRN 07/19/19 06/16/20 History pantoprazole [Protonix] 40 mg PO BID 07/19/19 06/16/20 History gabapentin [Neurontin] 600 mg PO BID 03/19/20 06/16/20 History diphenhydramine HCl [Benadryl] 25 mg PO Q6 PRN #15 cap 03/23/20 06/16/20 Rx cetirizine [Zyrtec] 10 mg PO QAM 04/05/20 06/16/20 History warfarin [Coumadin] 6 - 10 mg PO HS 04/05/20 06/16/20 History Probiotic 1 cap PO TID 06/16/20 06/16/20 History ferrous sulfate 220 mg PO DAILY 06/16/20 06/16/20 History hydromorphone [Dilaudid] 1 mg PO .DAILY @ LUNCH PRN 06/16/20 06/16/20 History torsemide 60 mg PO DAILY 06/16/20 06/16/20 History Patient History Medical History Anemia, iron deficiency Ascites Cirrhosis CKD (chronic kidney disease) stage 3, GFR 30-59 ml/min Depression Gastric peptic ulcer Hypothyroidism Neuropathy of both feet On anticoagulant therapy warfarin daily Paroxysmal A-fib Surgical History History of arthrodesis left leg History of arthroplasty of right shoulder unable to lift arm after sx History of arthroscopy of left knee x2 History of arthroscopy of right knee x7 History of cardiac cath 2011--no stents History of cholecystectomy History of colonoscopy History of esophagogastroduodenoscopy (EGD) History of gastric bypass History of open reduction and internal fixation (ORIF) procedure left tib/fib fx--hardware in place History of surgery on extremity 2017--right leg hardware in place per pt a "fusion of her leg" History of tooth extraction all teeth removed History of total right knee replacement (TKR) 2006 Family History Sister Breast cancer Mother Hypertension Diabetes Other No family history of adverse response to anesthesia Social History Smoking Status: Never smoker Second Hand Exposure: No; Do You Dip or Chew Tobacco: No; Tobacco Cessation Education Requested by Patient: No Hx Alcohol Use: Yes Alcohol type: beer Alcohol Intake Frequency: 4 or More x p er/Week Alcohol Intake Frequency Comment: daily, 2-3 beers Hx Substance Use: No Preferred Language: Hebrew Communication Ability: Effective Logistics Administrator Required: No Beliefs That Will Affect Care: None Current Living Situation: Alone Other Information That Helps Us Care for You: No Feels Safe at Home: Yes Safety Concerns: Feels Safe At This Time Review of Systems Constitutional: + fatigue, + weakness and + weight gain Respiratory: no cough Gastrointestinal: + bloating and + diarrhea/loose stools Musculoskeletal: + joint pain, + myalgia, + muscle weakness and + body aches Physical Exam Constitutional: well developed, + obese and + malnourished Eyes: EOM intact bilaterally ENMT: Ears: no external ear abnormality Nose: no external nose abnormality Mouth: + dry oral mucous membranes Neck: no nuchal rigidity Respiratory: normal respiratory effort; no respiratory distress and no labored breathing Auscultation: lungs clear to auscultation bilaterally and + diminished lung sounds Cardiovascular: Rate/Rhythm: regular rate and regular rhythm Extremities: + edema (3-4 + to hips BL) Gastrointestinal (Abdomen): Inspection/Auscultation: + abdomen distended and normal bowel sounds Percussion/Palpation: abdomen soft; abdomen nontender Musculoskeletal: Head/Neck/Chest: + evidence of head trauma (ecchymosis L frontal) Extremities: + limited ROM of extremities; + abnormal strength Knee: + effusion (L knee) and + ecchymosis (L knee) Skin: no rashes, warm and dry + ecchymosis (extensive L side of body as above) Neurologic: awake and + confused Speech / Cognition: + abnormal speech and + abnormal cognition Motor/Sensory: + tremor blanco, fluent speech, no tremor Psychiatric: Orientation: alert, oriented to person and oriented to place Affect: + flat affect Results & Data ([facility]) Vital Signs (Past 12 Hours) Vital Signs Temp Pulse Pulse Resp BP BP Pulse Ox 06/17/20 09:39 90 06/17/20 08:47 36.8 C 90 16 126/59 L 06/17/20 08:17 36.8 C 90 18 113/74 06/17/20 08:02 36.6 C 93 H 18 119/71 06/17/20 07:45 36.7 C 92 H 20 123/64 97 06/17/20 07:44 36.7 C 92 H 20 123/64 97 06/17/20 06:52 36.3 C L 86 18 121/65 96 06/17/20 05:52 36.8 C 88 18 110/65 95 06/17/20 05:22 36.8 C 89 14 114/74 97 06/17/20 05:07 36.7 C 86 18 122/70 98 06/17/20 04:50 36.6 C 94 H 20 114/74 96 06/17/20 04:08 36.7 C 92 H 18 116/75 95 06/17/20 01:35 36.6 C 92 H 12 125/63 98 06/17/20 00:39 36.8 C 99 H 18 112/74 97 06/17/20 00:09 36.6 C 96 H 20 114/70 99 06/16/20 23:54 36.7 C 95 H 16 123/82 96 06/16/20 23:37 36.7 C 89 14 117/73 100 06/16/20 23:05 36.4 C L 94 H 20 107/61 100 Laboratory Results 06/17/20 10:11 06/17/20 10:11 UA yesterday: slightly cloudy yellow urine 1025, pH 5.5; 1+ LE, 20-30 epi cells; 4+ bacteria; >30 WBC, all other indices negative urine osms 214; urine Na rd [address] non con > no acute i-c findings CXR > no active disease CT C spine non con > 1. No evidence of acute fracture or traumatic subluxation 2. 2 cm right lobe thyroid nodule. Nonemergent thyroid ultrasonography is recommended in follow-up. L knee XR 1. No acute fractures 2. Advanced tricompartment osteoarthritic change 3. Postsurgical changes within the tibia 4. Soft tissue swelling (1) Acute on chronic renal failure Acute renal failure type: unspecified Chronic kidney disease stage: stage 3 (moderate) Qualified Code(s): N17.9 - Acute kidney failure, unspecified; N18.3 - Chronic kidney disease, stage 3 (moderate)
--- NOTE | 2020-06-17 12:10 | CT Scan Report ---
CT tib/fib LT wo con HISTORY: 60 years-old Female leg swelling and pain, r/o fracture, hematoma acute pain and swelling o f the left lower extremity COMPARISON: Left knee radiographs 06/16/2020 TECHNIQUE: Multiple axial CT images of the left tibia and fibula were obtained without the use of IV contrast. A dose lowering technique was used consistent with the principals of KADEN. FINDINGS: Partially imaged knee joint effusion. Additionally, there is a partially imaged 6.1 hyperdense lesion /collection within the prepatellar tissues. Moderate diffuse subcutaneous edema with mild diffuse mus cular atrophy. Arterial calcifications. Tendons and ligaments are not well evaluated by CT technique. Demineralized appearance of the bones. Severe patellofemoral and lateral with moderate compartment os teoarthritis and chondrocalcinosis. There is at least moderate osteoarthritis of the tibiotalar joint with probable osteochondral defect involving the lateral aspect of the talar dome. No acute fracture or dislocation identified. Streak artifact from ORIF hardware limits the study. Intramedullary miki i s noted within the tibia with lateral plate and screw fusion of the distal fibula. Additionally, hard landis from subtalar fusion. IMPRESSION: 1. No acute fracture or dislocation. 2. Postsurgical changes as above. No evidence of hardware complication. 3. Diffuse subcutaneous edema suggests cellulitis, venous stasis or lymphedema. 4. Partially imaged probable hematoma of the prepatellar tissues measures over 6 cm. 5. Partially imaged joint effusion of the knee. ACT 112: Negative or not required by law. The above report was generated using voice recognition software. It may contain grammatical, syntax o r spelling errors. Electronically signed by: Renan Campos M.D. 06/17/2020 12:09 PM
--- NOTE | 2020-06-17 12:51 | Gastrointestinal Consultation ---
Date of Consultation June 17, 2020 Assessment & Plan (1) Decompensated hepatic cirrhosis: Multifactorial etiology. No evidence of overt ongoing GI bleeding. Obtain ultrasound abdomen with portal doppler. Paracentesis if she has ascites. Stool work up. Septic work up. Continue Rifaximin Po PPI. (2) Anemia: (3) Diarrhea: History of Present Illness Attending Physician: Roddy Andre MD History of Present Illness 60 years old female patient with Alcoholic Cirrhosis, PAF on Warfarin, CKD, hypothyroidism, history of gastric bypass, chronic pain syndrome on Opioids, depression, history of C. difficile who present after multiple falls at home and bruises, found to have supratherapeutic INR. She denies any abdominal pain, nausea or vomiting, no melena or rectal bleeding. reports loose stool hence stopped her Lactulose. GI consulted for management of Liver cirrhosis. Allergies Allergy/AdvReac Type Severity Reaction Status Date / Time cefaclor Allergy Intermediate Swelling Verified 06/16/20 16:22 oxycodone Allergy Intermediate HIVES Verified 06/16/20 16:22 amoxicillin Allergy Mild Nausea Verified 06/16/20 16:22 ceftriaxone [From Rocephin] Allergy Rash Verified 06/16/20 16:22 metronidazole [From Flagyl] Allergy Rash Verified 06/16/20 16:22 Home Medications Home Medications Medication Instructions Recorded Confirmed Type cyanocobalamin (vitamin B-12) 1,000 mcg PO QAM 08/22/18 06/16/20 History [Vitamin B-12] hydromorphone [Dilaudid] 2 mg PO BID PRN 08/22/18 06/16/20 History levothyroxine [Synthroid] 75 mcg PO QAM 08/22/18 06/16/20 History magnesium oxide 400 mg PO BID 08/22/18 06/16/20 History multivitamin 1 tab PO QAM 08/22/18 06/16/20 History ondansetron HCl [Zofran] 4 mg PO Q8 PRN 08/22/18 06/16/20 History sucralfate [Carafate] 1 g PO BID PRN 08/22/18 06/16/20 History zinc sulfate 220 mg PO QAM 08/22/18 06/16/20 History cholecalciferol (vitamin D3) 4,000 unit PO DAILY 10/03/18 06/16/20 History [Vitamin D3] rifaximin [Xifaxan] 550 mg PO BID 10/03/18 06/16/20 History duloxetine [Cymbalta] 60 mg PO QAM 07/19/19 06/16/20 History lactulose [Generlac] 45 ml PO DAILY PRN 07/19/19 06/16/20 History pantoprazole [Protonix] 40 mg PO BID 07/19/19 06/16/20 History gabapentin [Neurontin] 600 mg PO BID 03/19/20 06/16/20 History diphenhydramine HCl [Benadryl] 25 mg PO Q6 PRN #15 cap 03/23/20 06/16/20 Rx cetirizine [Zyrtec] 10 mg PO QAM 04/05/20 06/16/20 History warfarin [Coumadin] 6 - 10 mg PO HS 04/05/20 06/16/20 History Probiotic 1 cap PO TID 06/16/20 06/16/20 History ferrous sulfate 220 mg PO DAILY 06/16/20 06/16/20 History hydromorphone [Dilaudid] 1 mg PO .DAILY @ LUNCH PRN 06/16/20 06/16/20 History torsemide 60 mg PO DAILY 06/16/20 06/16/20 History Patient History Medical History Anemia, iron deficiency Ascites Cirrhosis CKD (chronic kidney disease) stage 3, GFR 30-59 ml/min Depression Gastric peptic ulcer Hypothyroidism Neuropathy of both feet On anticoagulant therapy warfarin daily Paroxysmal A-fib Surgical History History of arthrodesis left leg History of arthroplasty of right shoulder unable to lift arm after sx History of arthroscopy of left knee x2 History of arthroscopy of right knee x7 History of cardiac cath 2011--no stents History of cholecystectomy History of colonoscopy History of esophagogastroduodenoscopy (EGD) History of gastric bypass History of open reduction and internal fixation (ORIF) procedure left tib/fib fx--hardware in place History of surgery on extremity 2017--right leg hardware in place per pt a "fusion of her leg" History of tooth extraction all teeth removed History of total right knee replacement (TKR) 2006 Family History Sister Breast cancer Mother Hypertension Diabetes Other No family history of adverse response to anesthesia Social History Smoking Status: Never smoker Second Hand Exposure: No; Do You Dip or Chew Tobacco: No; Tobacco Cessation Education Requested by Patient: No Hx Alcohol Use: Yes Alcohol type: beer Alcohol Intake Frequency: 4 or More x per/Week Alcohol Intake Frequency Comment: daily, 2-3 beers Hx Substance Use: No Preferred Language: Ukrainian Communication Ability: Effective Color Grinder Required: No Beliefs That Will Affect Care: None Current Living Situation: Alone Other Information That Helps Us Care for You: No Feels Safe at Home: Yes Safety Concerns: Feels Safe At This Time Review of Systems Constitutional: + weight gain; no fever, no chills and no fatigue Eyes: no eye pain and no worsening vision Ear, Nose, Mouth, Throat: no tinnitus, no dizziness, no nasal discharge and no epistaxis Respiratory: no cough, no dyspnea, no dyspnea on exertion and no wheezing Cardiovascular: no chest pain, no orthopnea, no palpitations and no edema Gastrointestinal: as per Subjective / HPI Genitourinary: no dysuria, no urinary frequency, no urinary incontinence and no hematuria Musculoskeletal: no stiffness and no myalgia Neurologic: no localized weakness, no paralysis, no tremor(s) and no headache(s) Endocrine: no polydipsia and no polyuria Hematologic / Lymphatic: no easy bleeding and no night sweats Physical Exam Constitutional: + well hydrated, cooperative and comfortable Eyes: PERRL, conjunctivae normal, anicteric sclerae ENMT: external ear and nose normal, oropharynx normal Neck: normal visual inspection and trachea midline Respiratory: normal respiratory effort, lungs clear to auscultation Auscultation: no wheezes Cardiovascular: RRR, no murmur, no edema Gastrointestinal (Abdomen): Inspection/Auscultation: + abdomen distended and normal bowel sounds Percussion/Palpation: abdomen soft; abdomen nontender Musculoskeletal: no cyanosis or clubbing, extremities motor strength 5/5 + 2 pedal edema Skin: no rashes, warm and dry Neurologic: awake; no focal motor deficits Motor/Sensory: no tremor Results & Data ([place]) Vital Signs (Past 12 Hours) Vital Signs Temp Pulse Pulse Resp BP BP Pulse Ox 06/17/20 09:39 90 06/17/20 08:47 36.8 C 90 16 126/59 L 06/17/20 08:17 36.8 C 90 18 113/74 06/17/20 08:02 36.6 C 93 H 18 119/71 06/17/20 07:45 36.7 C 92 H 20 123/64 97 06/17/20 07:44 36.7 C 92 H 20 123/64 97 06/17/20 06:52 36.3 C L 86 18 121/65 96 06/17/20 05:52 36.8 C 88 18 110/65 95 06/17/20 05:22 36.8 C 89 14 114/74 97 06/17/20 05:07 36.7 C 86 18 122/70 98 06/17/20 04:50 36.6 C 94 H 20 114/74 96 06/17/20 04:08 36.7 C 92 H 18 116/75 95 06/17/20 01:35 36.6 C 92 H 12 125/63 98 Laboratory Results Laboratory Results - last 24 hr 06/16/20 06/16/20 06/16/20 16:04 16:04 16:04 WBC 9.00 RBC 2.32 L Hgb 7.0 L Hct 20.5 L* MCV 88.4 MCH 30.2 MCHC 34.1 RDW Std Deviation 54.6 H RDW Coeff of Jake 16.9 H Plt Count 199 MPV 10.5 H Immature Gran % (Auto) 0.3 Neut % (Auto) 76.6 Lymph % (Auto) 10.3 [place] % (Auto) 12.3 Eos % (Auto) 0.4 Baso % (Auto) 0.1 Neut # (Auto) 6.88 H Lymph # (Auto) 0.93 L [place] # (Auto) 1.11 H Eos # (Auto) 0.04 Baso # (Auto) 0.01 Immature Gran # (Auto) 0.03 H Hypochromasia Anisocytosis Target Cells 1+ PT > 90.0 H INR > 9.7 H* Sodium 129 L Potassium 2.9 L Chloride 96 L Carbon Dioxide 24 Anion Gap 8.0 BUN 26 H Creatinine 2.22 H Est Cr Clr Drug Dosing 32.9 Est GFR ( Amer) 27.4 Est GFR (Non-Af Amer) 23.7 BUN/Creatinine Ratio 11.9 Glucose 124 H Osmolality Calcium 8.0 L Phosphorus Magnesium 1.8 Iron TIBC Transferrin Ferritin Total Bilirubin 0.7 Direct Bilirubin AST 57 H ALT 32 Alkaline Phosphatase 210 H Ammonia Total Creatine Kinase 185 Troponin I < 0.015 Total Protein 5.1 L Albumin 2.2 L Globulin 2.9 Albumin/Globulin Ratio 0.7 L Vitamin B12 Folate TSH 3.770 Urine Color Urine Appearance Urine pH Ur Specific [place] Urine Protein Urine Glucose (UA) Urine Ketones Urine Blood Urine Nitrite Urine Bilirubin Urine Urobilinogen Ur Leukocyte Esterase Urine WBC (Auto) Urine RBC (Auto) U Hyaline Cast (Auto) U Epithel Cells (Auto) Urine Bacteria (Auto) Urine RBC Urine WBC Ur Epithelial Cells Ur Renal Epithelial Cell Urine Crystals Calcium Oxalate Crystal Uric Acid Crystals Triple Phos Crystals Other Crystals Amorphous Sediment Urine Bacteria Granular Casts Waxy Casts RBC Casts WBC Casts Other Casts Urine Mucus Urine Other Urine Trichomonas Urine Yeast Urine Sperm Ur Oval Fat Bodies Urine Osmolality Ur Random Sodium Urine Opiates Screen U Codeine Confrm GC/MS Ur Morphine (GC/MS) Ur Hydrocodone (GC/MS) Ur Norhydrocodone Ur Noroxycodone Urine Oxycodone (GC/MS) U Oxymorphone GC/MS Ur Methadone, Qual Ur Hydromorphone (GC/MS) Urine Barbiturates Ur Phencyclidine (PCP) U Amphetamin/Meth Scrn MDMA (Ecstasy) Screen U Benzodiazepines Scrn Ur Cocaine Metabolite U Marijuana (THC) Screen Drug Screen Comment Ethyl Alcohol mg/dL Blood Type Blood Type Recheck Antibody Screen Crossmatch 06/16/20 06/16/20 06/16/20 16:04 16:04 17:20 WBC RBC Hgb Hct MCV MCH MCHC RDW Std Deviation RDW Coeff of Jake Plt Count MPV Immature Gran % (Auto) Neut % (Auto) Lymph % (Auto) [place] % (Auto) Eos % (Auto) Baso % (Auto) Neut # (Auto) Lymph # (Auto) [place] # (Auto) Eos # (Auto) Baso # (Auto) Immature Gran # (Auto) Hypochromasia Anisocytosis Target Cells PT INR Sodium Potassium Chloride Carbon Dioxide Anion Gap BUN Creatinine Est Cr Clr Drug Dosing Est GFR ( Amer) Est GFR (Non-Af Amer) BUN/Creatinine Ratio Glucose Osmolality 271 L Calcium Phosphorus Magnesium Iron TIBC Transferrin Ferritin Total Bilirubin Direct Bilirubin AST ALT Alkaline Phosphatase Ammonia 72.2 H Total Creatine Kinase Troponin I Total Protein Albumin Globulin Albumin/Globulin Ratio Vitamin B12 Folate TSH Urine Color Urine Appearance Urine pH Ur Specific [place] Urine Protein Urine Glucose (UA) Urine Ketones Urine Blood Urine Nitrite Urine Bilirubin Urine Urobilinogen Ur Leukocyte Esterase Urine WBC (Auto) Urine RBC (Auto) U Hyaline Cast (Auto) U Epithel Cells (Auto) Urine Bacteria (Auto) Urine RBC Urine WBC Ur Epithelial Cells Ur Renal Epithelial Cell Urine Crystals Calcium Oxalate Crystal Uric Acid Crystals Triple Phos Crystals Other Crystals Amorphous Sediment Urine Bacteria Granular Casts Waxy Casts RBC Casts WBC Casts Other Casts Urine Mucus Urine Other Urine Trichomonas Urine Yeast Urine Sperm Ur Oval Fat Bodies Urine Osmolality Ur Random Sodium Urine Opiates Screen U Codeine Confrm GC/MS Ur Morphine (GC/MS) Ur Hydrocodone (GC/MS) Ur Norhydrocodone Ur Noroxycodone Urine Oxycodone (GC/MS) U Oxymorphone GC/MS Ur Methadone, Qual Ur Hydromorphone (GC/MS) Urine Barbiturates Ur Phencyclidine (PCP) U Amphetamin/Meth Scrn MDMA (Ecstasy) Screen U Benzodiazepines Scrn Ur Cocaine Metabolite U Marijuana (THC) Screen Drug Screen Comment Ethyl Alcohol mg/dL Blood Type O Positive Blood Type Recheck Antibody Screen NEGATIVE Crossmatch See Detail 06/16/20 06/16/20 06/16/20 17:42 18:19 18:19 WBC RBC Hgb Hct MCV MCH MCHC RDW Std Deviation RDW Coeff of Jake Plt Count MPV Immature Gran % (Auto) Neut % (Auto) Lymph % (Auto) [place] % (Auto) Eos % (Auto) Baso % (Auto) Neut # (Auto) Lymph # (Auto) [place] # (Auto) Eos # (Auto) Baso # (Auto) Immature Gran # (Auto) Hypochromasia Anisocytosis Target Cells PT INR Sodium Potassium Chloride Carbon Dioxide Anion Gap BUN Creatinine Est Cr Clr Drug Dosing Est GFR ( Amer) Est GFR (Non-Af Amer) BUN/Creatinine Ratio Glucose Osmolality Calcium Phosphorus Magnesium Iron 35 TIBC 141 L Transferrin 77 L Ferritin 446.5 H Total Bilirubin Direct Bilirubin AST ALT Alkaline Phosphatase Ammonia Total Creatine Kinase Troponin I Total Protein Albumin Globulin Albumin/Globulin Ratio Vitamin B12 Folate TSH Urine Color Urine Appearance Urine pH Ur Specific [place] Urine Protein Urine Glucose (UA) Urine Ketones Urine Blood Urine Nitrite Urine Bilirubin Urine Urobilinogen Ur Leukocyte Esterase Urine WBC (Auto) Urine RBC (Auto) U Hyaline Cast (Auto) U Epithel Cells (Auto) Urine Bacteria (Auto) Urine RBC Urine WBC Ur Epithelial Cells Ur Renal Epithelial Cell Urine Crystals Calcium Oxalate Crystal Uric Acid Crystals Triple Phos Crystals Other Crystals Amorphous Sediment Urine Bacteria Granular Casts Waxy Casts RBC Casts WBC Casts Other Casts Urine Mucus Urine Other Urine Trichomonas Urine Yeast Urine Sperm Ur Oval Fat Bodies Urine Osmolality Ur Random Sodium Urine Opiates Screen U Codeine Confrm GC/MS Ur Morphine (GC/MS) Ur Hydrocodone (GC/MS) Ur Norhydrocodone Ur Noroxycodone Urine Oxycodone (GC/MS) U Oxymorphone GC/MS Ur Methadone, Qual Ur Hydromorphone (GC/MS) Urine Barbiturates Ur Phencyclidine (PCP) U Amphetamin/Meth Scrn MDMA (Ecstasy) Screen U Benzodiazepines Scrn Ur Cocaine Metabolite U Marijuana (THC) Screen Drug Screen Comment Ethyl Alcohol mg/dL < 3.0 Blood Type Blood Type Recheck O Positive Antibody Screen Crossmatch 06/16/20 06/16/20 06/16/20 Unknown Unknown Unknown WBC RBC Hgb Hct MCV MCH MCHC RDW Std Deviation RDW Coeff of Jake Plt Count MPV Immature Gran % (Auto) Neut % (Auto) Lymph % (Auto) [place] % (Auto) Eos % (Auto) Baso % (Auto) Neut # (Auto) Lymph # (Auto) [place] # (Auto) Eos # (Auto) Baso # (Auto) Immature Gran # (Auto) Hypochromasia Anisocytosis Target Cells PT INR Sodium Potassium Chloride Carbon Dioxide Anion Gap BUN Creatinine Est Cr Clr Drug Dosing Est GFR ( Amer) Est GFR (Non-Af Amer) BUN/Creatinine Ratio Glucose Osmolality Calcium Phosphorus Magnesium Iron TIBC Transferrin Ferritin Total Bilirubin Direct Bilirubin AST ALT Alkaline Phosphatase Ammonia Total Creatine Kinase Troponin I Total Protein Albumin Globulin Albumin/Globulin Ratio Vitamin B12 Folate TSH Urine Color Yellow Urine Appearance Slightly Cloudy Urine pH 5.5 Ur Specific [place] 1.025 Urine Protein Negative Urine Glucose (UA) Negative Urine Ketones Negative Urine Blood Negative Urine Nitrite Negative Urine Bilirubin Negative Urine Urobilinogen Negative Ur Leukocyte Esterase 1+ H Urine WBC (Auto) Urine RBC (Auto) U Hyaline Cast (Auto) U Epithel Cells (Auto) Urine Bacteria (Auto) Urine RBC 0-4 Urine WBC >30 H Ur Epithelial Cells 20-30 H Ur Renal Epithelial Cell Urine Crystals Calcium Oxalate Crystal Uric Acid Crystals Triple Phos Crystals Other Crystals Amorphous Sediment Urine Bacteria 4+ H Granular Casts Waxy Casts RBC Casts WBC Casts Other Casts Urine Mucus Urine Other Urine Trichomonas Urine Yeast Urine Sperm Ur Oval Fat Bodies Urine Osmolality 214 L Ur Random Sodium Urine Opiates Screen Pos H U Codeine Confrm GC/MS Ur Morphine (GC/MS) Ur Hydrocodone (GC/MS) Ur Norhydrocodone Ur Noroxycodone Urine Oxycodone (GC/MS) U Oxymorphone GC/MS Ur Methadone, Qual Neg Ur Hydromorphone (GC/MS) Urine Barbiturates Neg Ur Phencyclidine (PCP) Neg U Amphetamin/Meth Scrn Neg MDMA (Ecstasy) Screen Neg U Benzodiazepines Scrn Neg Ur Cocaine Metabolite Neg U Marijuana (THC) Screen Neg Drug Screen Comment Ethyl Alcohol mg/dL Blood Type Blood Type Recheck Antibody Screen Crossmatch 06/16/20 06/16/20 06/16/20 Unknown Unknown Unknown WBC RBC Hgb Hct MCV MCH MCHC RDW Std Deviation RDW Coeff of Jake Plt Count MPV Immature Gran % (Auto) Neut % (Auto) Lymph % (Auto) [place] % (Auto) Eos % (Auto) Baso % (Auto) Neut # (Auto) Lymph # (Auto) [place] # (Auto) Eos # (Auto) Baso # (Auto) Immature Gran # (Auto) Hypochromasia Anisocytosis Target Cells PT INR Sodium Potassium Chloride Carbon Dioxide Anion Gap BUN Creatinine Est Cr Clr Drug Dosing Est GFR ( Amer) Est GFR (Non-Af Amer) BUN/Creatinine Ratio Glucose Osmolality Calcium Phosphorus Magnesium Iron TIBC Transferrin Ferritin Total Bilirubin Direct Bilirubin AST ALT Alkaline Phosphatase Ammonia Total Creatine Kinase Troponin I Total Protein Albumin Globulin Albumin/Globulin Ratio Vitamin B12 Folate TSH Urine Color Cancelled Urine Appearance Cancelled Urine pH Cancelled Ur Specific [place] Cancelled Urine Protein Cancelled Urine Glucose (UA) Cancelled Urine Ketones Cancelled Urine Blood Cancelled Urine Nitrite Cancelled Urine Bilirubin Cancelled Urine Urobilinogen Cancelled Ur Leukocyte Esterase Cancelled Urine WBC (Auto) Cancelled Urine RBC (Auto) Cancelled U Hyaline Cast (Auto) Cancelled U Epithel Cells (Auto) Cancelled Urine Bacteria (Auto) Cancelled Urine RBC Urine WBC Ur Epithelial Cells Ur Renal Epithelial Cell Cancelled Urine Crystals Cancelled Calcium Oxalate Crystal Cancelled Uric Acid Crystals Cancelled Triple Phos Crystals Cancelled Other Crystals Cancelled Amorphous Sediment Cancelled Urine Bacteria Granular Casts Cancelled Waxy Casts Cancelled RBC Casts Cancelled WBC Casts Cancelled Other Casts Cancelled Urine Mucus Cancelled Urine Other Cancelled Urine Trichomonas Cancelled Urine Yeast Cancelled Urine Sperm Cancelled Ur Oval Fat Bodies Cancelled Urine Osmolality Ur Random Sodium 10 Urine Opiates Screen U Codeine Confrm GC/MS Pending Ur Morphine (GC/MS) Pending Ur Hydrocodone (GC/MS) Pending Ur Norhydrocodone Pending Ur Noroxycodone Pending Urine Oxycodone (GC/MS) Pending U Oxymorphone GC/MS Pending Ur Methadone, Qual Ur Hydromorphone (GC/MS) Pending Urine Barbiturates Ur Phencyclidine (PCP) U Amphetamin/Meth Scrn MDMA (Ecstasy) Screen U Benzodiazepines Scrn Ur Cocaine Metabolite U Marijuana (THC) Screen Drug Screen Comment Pending Ethyl Alcohol mg/dL Blood Type Blood Type Recheck Antibody Screen Crossmatch 06/17/20 06/17/20 06/17/20 02:40 02:40 02:40 WBC 11.83 H RBC 2.47 L Hgb 7.2 L Hct 21.1 L MCV 85.4 MCH 29.1 MCHC 34.1 RDW Std Deviation 55.4 H RDW Coeff of Jake 17.5 H Plt Count 141 MPV 9.6 Immature Gran % (Auto) Neut % (Auto) Lymph % (Auto) [place] % (Auto) Eos % (Auto) Baso % (Auto) Neut # (Auto) Lymph # (Auto) [place] # (Auto) Eos # (Auto) Baso # (Auto) Immature Gran # (Auto) Hypochromasia Anisocytosis Target Cells PT 25.4 H INR 2.5 H Sodium Potassium Chloride Carbon Dioxide Anion Gap BUN Creatinine Est Cr Clr Drug Dosing Est GFR ( Amer) Est GFR (Non-Af Amer) BUN/Creatinine Ratio Glucose Osmolality Calcium Phosphorus Magnesium Iron TIBC Transferrin Ferritin Total Bilirubin Direct Bilirubin AST ALT Alkaline Phosphatase Ammonia Total Creatine Kinase Troponin I Total Protein Albumin Globulin Albumin/Globulin Ratio Vitamin B12 > 2000 H Folate 12.85 TSH Urine Color Urine Appearance Urine pH Ur Specific [place] Urine Protein Urine Glucose (UA) Urine Ketones Urine Blood Urine Nitrite Urine Bilirubin Urine Urobilinogen Ur Leukocyte Esterase Urine WBC (Auto) Urine RBC (Auto) U Hyaline Cast (Auto) U Epithel Cells (Auto) Urine Bacteria (Auto) Urine RBC Urine WBC Ur Epithelial Cells Ur Renal Epithelial Cell Urine Crystals Calcium Oxalate Crystal Uric Acid Crystals Triple Phos Crystals Other Crystals Amorphous Sediment Urine Bacteria Granular Casts Waxy Casts RBC Casts WBC Casts Other Casts Urine Mucus Urine Other Urine Trichomonas Urine Yeast Urine Sperm Ur Oval Fat Bodies Urine Osmolality Ur Random Sodium Urine Opiates Screen U Codeine Confrm GC/MS Ur Morphine (GC/MS) Ur Hydrocodone (GC/MS) Ur Norhydrocodone Ur Noroxycodone Urine Oxycodone (GC/MS) U Oxymorphone GC/MS Ur Methadone, Qual Ur Hydromorphone (GC/MS) Urine Barbiturates Ur Phencyclidine (PCP) U Amphetamin/Meth Scrn MDMA (Ecstasy) Screen U Benzodiazepines Scrn Ur Cocaine Metabolite U Marijuana (THC) Screen Drug Screen Comment Ethyl Alcohol mg/dL Blood Type Blood Type Recheck Antibody Screen Crossmatch 06/17/20 06/17/20 06/17/20 02:40 10:11 10:11 WBC 7.94 RBC 2.45 L Hgb 7.2 L Hct 20.9 L* MCV 85.3 MCH 29.4 MCHC 34.4 RDW Std Deviation 53.6 H RDW Coeff of Jake 17.2 H Plt Count 114 L MPV 9.8 Immature Gran % (Auto) 0.4 Neut % (Auto) 71.9 Lymph % (Auto) 15.1 [place] % (Auto) 11.6 Eos % (Auto) 0.9 Baso % (Auto) 0.1 Neut # (Auto) 5.71 Lymph # (Auto) 1.20 [place] # (Auto) 0.92 H Eos # (Auto) 0.07 Baso # (Auto) 0.01 Immature Gran # (Auto) 0.03 H Hypochromasia Present Anisocytosis Present Target Cells PT INR Sodium 130 L 131 L Potassium 3.5 D 3.3 L Chloride 100 100 Carbon Dioxide 21 21 Anion Gap 9.0 10.0 BUN 26 H 25 H Creatinine 2.11 H 2.02 H Est Cr Clr Drug Dosing 34.5 35.8 Est GFR ( Amer) 29.2 30.7 Est GFR (Non-Af Amer) 25.2 26.5 BUN/Creatinine Ratio 12.5 12.4 Glucose 104 H 122 H Osmolality Calcium 7.2 L 7.3 L Phosphorus 4.5 Magnesium 1.8 1.9 Iron TIBC Transferrin Ferritin Total Bilirubin 1.5 H D 1.5 H Direct Bilirubin 0.7 H AST 44 H 40 H ALT 27 26 Alkaline Phosphatase 170 H 158 H Ammonia Total Creatine Kinase Troponin I Total Protein 4.6 L 4.8 L Albumin 2.1 L 2.2 L Globulin 2.5 2.6 Albumin/Globulin Ratio 0.8 L 0.8 L Vitamin B12 Folate TSH Urine Color Urine Appearance Urine pH Ur Specific [place] Urine Protein Urine Glucose (UA) Urine Ketones Urine Blood Urine Nitrite Urine Bilirubin Urine Urobilinogen Ur Leukocyte Esterase Urine WBC (Auto) Urine RBC (Auto) U Hyaline Cast (Auto) U Epithel Cells (Auto) Urine Bacteria (Auto) Urine RBC Urine WBC Ur Epithelial Cells Ur Renal Epithelial Cell Urine Crystals Calcium Oxalate Crystal Uric Acid Crystals Triple Phos Crystals Other Crystals Amorphous Sediment Urine Bacteria Granular Casts Waxy Casts RBC Casts WBC Casts Other Casts Urine Mucus Urine Other Urine Trichomonas Urine Yeast Urine Sperm Ur Oval Fat Bodies Urine Osmolality Ur Random Sodium Urine Opiates Screen U Codeine Confrm GC/MS Ur Morphine (GC/MS) Ur Hydrocodone (GC/MS) Ur Norhydrocodone Ur Noroxycodone Urine Oxycodone (GC/MS) U Oxymorphone GC/MS Ur Methadone, Qual Ur Hydromorphone (GC/MS) Urine Barbiturates Ur Phencyclidine (PCP) U Amphetamin/Meth Scrn MDMA (Ecstasy) Screen U Benzodiazepines Scrn Ur Cocaine Metabolite U Marijuana (THC) Screen Drug Screen Comment Ethyl Alcohol mg/dL Blood Type Blood Type Recheck Antibody Screen Crossmatch 06/17/20 10:47 WBC RBC Hgb Hct MCV MCH MCHC RDW Std Deviation RDW Coeff of Jake Plt Count MPV Immature Gran % (Auto) Neut % (Auto) Lymph % (Auto) [place] % (Auto) Eos % (Auto) Baso % (Auto) Neut # (Auto) Lymph # (Auto) [place] # (Auto) Eos # (Auto) Baso # (Auto) Immature Gran # (Auto) Hypochromasia Anisocytosis Target Cells PT 17.6 H INR 1.7 H Sodium Potassium Chloride Carbon Dioxide Anion Gap BUN Creatinine Est Cr Clr Drug Dosing Est GFR ( Amer) Est GFR (Non-Af Amer) BUN/Creatinine Ratio Glucose Osmolality Calcium Phosphorus Magnesium Iron TIBC Transferrin Ferritin Total Bilirubin Direct Bilirubin AST ALT Alkaline Phosphatase Ammonia Total Creatine Kinase Troponin I Total Protein Albumin Globulin Albumin/Globulin Ratio Vitamin B12 Folate TSH Urine Color Urine Appearance Urine pH Ur Specific [place] Urine Protein Urine Glucose (UA) Urine Ketones Urine Blood Urine Nitrite Urine Bilirubin Urine Urobilinogen Ur Leukocyte Esterase Urine WBC (Auto) Urine RBC (Auto) U Hyaline Cast (Auto) U Epithel Cells (Auto) Urine Bacteria (Auto) Urine RBC Urine WBC Ur Epithelial Cells Ur Renal Epithelial Cell Urine Crystals Calcium Oxalate Crystal Uric Acid Crystals Triple Phos Crystals Other Crystals Amorphous Sediment Urine Bacteria Granular Casts Waxy Casts RBC Casts WBC Casts Other Casts Urine Mucus Urine Other Urine Trichomonas Urine Yeast Urine Sperm Ur Oval Fat Bodies Urine Osmolality Ur Random Sodium Urine Opiates Screen U Codeine Confrm GC/MS Ur Morphine (GC/MS) Ur Hydrocodone (GC/MS) Ur Norhydrocodone Ur Noroxycodone Urine Oxycodone (GC/MS) U Oxymorphone GC/MS Ur Methadone, Qual Ur Hydromorphone (GC/MS) Urine Barbiturates Ur Phencyclidine (PCP) U Amphetamin/Meth Scrn MDMA (Ecstasy) Screen U Benzodiazepines Scrn Ur Cocaine Metabolite U Marijuana (THC) Screen Drug Screen Comment Ethyl Alcohol mg/dL Blood Type Blood Type Recheck Antibody Screen Crossmatch (1) Anemia Anemia type: unspecified type Qualified Code(s): D64.9 - Anemia, unspecified
[2020-06-17] MEDS ORDERED: DAPTOMYCIN CONSULT ACTIVE PRN (13:10)
--- NOTE | 2020-06-17 13:20 | Consultation Report ---
DATE OF OPERATION: 06/17/2020 PERTINENT HISTORY: This is a 60-year-old female seen at the request of Dr. Brown and Dr. Andre regarding left knee pain, swelling and large ecchymosis. The patient was in her normal state of health; however, has had several falls this past week, one of which she fell on to her left knee because she was off balance and unsteady. She fell on her face. She struck her head twice this past week. She has multiple medical comorbidities and there is a question regarding narcotic abuse as well as a chronic alcohol usage. The patient presented with an INR greater than 9.7 and other metabolic derangement. She has been given vitamin K and other resuscitative treatments. Overall, more stable at this time; however, still having difficulty related to her coagulopathy. The patient complains of some discomfort in the left knee and has a variable degree of mentation according to her metabolic state. She is a fair historian when prompted. PAST MEDICAL HISTORY: Extensive including DAVIS/alcoholic cirrhosis, PAF and anticoagulation on warfarin, CKD stage III, hypothyroidism, history of gastric bypass, morbid obesity, history of anastomotic ulcer, chronic pain syndrome, depression, history of C. difficile, frequent recurrent falls, alcoholism, chronic narcotic use, ascites, bilateral lower extremity neuropathy. PAST SURGICAL HISTORY: Arthrodesis, left hindfoot arthroplasty, right shoulder arthroscopy left knee x2, arthroscopy right knee x7, history of cardiac catheterization 2011, no stents, cholecystectomy, colonoscopy, EGD, gastric bypass, ORIF left tib-fib fracture with a tibial nail and fibular plating intact, right leg fusion 2016, history of tooth extraction all teeth removed, right total knee replacement 2006. ALLERGIES: CEFACLOR, OXYCODONE, AMOXICILLIN, CEFTRIAXONE, METRONIDAZOLE. MEDICATIONS: Please note the multiple medicines in the medical record. SOCIAL HISTORY: She denies tobacco use. She drinks alcohol 4 or more drinks per week, 2-3 beers daily, takes Dilaudid on a regular basis prescription valid. No other street drugs that she will admit to. She lives alone at home. Her family lives largely in [place]. PHYSICAL EXAMINATION: This is a 60-year-old obese female lying supine in hospital room bed. Variable degrees of consciousness. She does respond to questions appropriately with prompting. She is drowsy. She is normocephalic with ecchymosis left frontal forehead, left cheek bone. Examination of the lower extremities demonstrate a large hematoma with ecchymosis left thigh and hemarthrosis suspected left knee joint capsule. Effusion obvious range of motion of the left knee is 0 to approximately 30 degrees limited by turgor of the left knee joint capsule. She has a history of a chronically dislocated patella. Abnormal anatomy of the knee. Pedal pulses are 1+/4 bilaterally. Sensation is limited in bilateral feet, particularly in a stocking distribution. Hair growth is scant. Multiple patches of ecchymosis bilateral lower extremities, more pronounced on the left than the right. Radiographs reviewed demonstrating a left knee grade 2-3 degenerative changes with loss of medial joint space, marginal osteophytes, subchondral sclerosis and early subchondral cyst formation. She has placement of the previously placed apparently stable appearing tibial nail. Also, there is a lateral distal fibular plate of the left lower extremity. No obvious fractures. Obvious effusion is evident. A valgus alignment of the knee. IMPRESSION: 1. Left knee hemarthrosis. 2. Multiple contusions, left knee. 3. Grade 2-3 degenerative joint disease, left knee with presence of tibial nail 4. Coagulopathy with supratherapeutic INR. 5. ETOH abuse. 6. Nonalcoholic steatohepatitis/alcoholic cirrhosis. 7. Chronic kidney disease stage III, multiple medical comorbidities and obesity. RECOMMENDATION: She will likely require aspiration of her left knee hemarthrosis versus possible open washout; however, refrain from this time until INR can be controlled and coagulopathy reversed. In the interim, minimal weightbearing with assist x1 and walker. Ice to the affected knee. We will follow with you. Thank you for the opportunity to consult in the care of this patient. I attest to the content of the Intraoperative Record and any orders documented therein. Any exceptions are noted below. PHOEBE
[2020-06-17] MEDS: DAPTOmycin 300 MG in SYRINGE 0 ML IV SCH (14:23)
[2020-06-17] MEDS: ALBUMIN 25% 50 ML with FUROSEMIDE 40 MG IV SCH ×2 (16:19→21:35)
[2020-06-17 16:26] LABS: Hematocrit (blood only) 21.4 % (37-47); Hemoglobin 7.2 g/dL (12.0-16.0)
--- NOTE | 2020-06-17 16:28 | Hospitalist Progress Note ---
Date of Service June 17, 2020 Assessment & Plan (1) Falls: 60-year-old female with history of Davis cirrhosis, atrial fibrillation on Coumadin, CKD stage III Gastric bypass with anastomotic ulcer, chronic pain syndrome, depression Presenting with multiple falls from home. Falls secondary to metabolic encephalopathy, multifactorial: Hepatic encephalopathy Ammonia level admission 72 Status seems to be improved today Patient declining lactulose Continue rifaximin closely Alcohol intoxication Continue alcohol withdrawal protocol including gabapentin Gabapentin to be renally dosed Dilaudid, gabapentin, Cymbalta use Will try to limit Dilaudid use Monitor closely Anemia, symptomatic, secondary to iron deficiency Possible acute blood loss secondary to left lower extremity hematoma Supratherapeutic INR Hemoglobin 7.2 on admission Status post 3 units of packed RBCs transfused Globin remains at 7.2 No signs of acute bleeding at this time Monitor H&H every 6 hours, transfuse for hemoglobin below 7 Continue Protonix p.o. INR management per noted below Orthopedic service consulted, may need washout Decompensated liver cirrhosis DAVIS cirrhosis Positive volume overload in the setting of acute renal failure and CKD stage III GI and nephrology consulted Lasix 40 mg IV with albumin ordered 3 times daily Monitor closely Septic work-up Blood cultures: Pending Urine culture: Gram-negative bacilli Continue daptomycin plus aztreonam Acute renal failure CKD stage III Monitor while on Lasix Possible UTI Management per above Atrial fibrillation on Coumadin Supratherapeutic INR Hold Coumadin, given vitamin K K 10 mg IV and FFP INR 1.7 Currently in sinus rhythm Monitor Gastric bypass, status post anastomotic ulcer No signs of GI bleed at this point per GI Continue Protonix Monitor Chronic pain syndrome Patient may be misusing Dilaudid at home Monitor for now Depression Per admitting service patient may be having progression of depression symptoms secondary to being alone at home recently secondary to the pandemic Will consult psychiatry service DVT prophylaxis Anticoagulation contraindicated secondary to acute blood loss, hematoma Status contraindicated secondary to cellulitis versus hematoma Will encourage frequent ambulation when medically stable Disposition Lives at home but patient has been having multiple falls, presents with weakness and encephalopathy We will order PT and OT evaluation Most likely will need to transition to either rehab or detention facility Admission and Anticipated Discharge Date Admission Date: June 16, 2020 Subjective ff up for decompensated liver cirrhosis, acute renal failure, multiple falls Seen resting in bed, comfortable not in distress, appears tired, and drowsy Oriented x3, answers most questions appropriately Reports pain in the left lower extremity Denies headache, dizziness, change with vision Denies chest pain, shortness of breath, palpitations, dizziness No abdominal pain, nausea vomiting, melena or hematochezia Denies any symptoms Review of Systems Review of Systems: All systems reviewed & are unremarkable except as noted in HPI & below Physical Exam Physical Exam: General- oriented x 3, not in distress, speaks in sentences with no effort or accessory muscle use Drowsy, weak Head- atraumatic Eyes- PERRL, EOMI, anicteric ENT- oropharynx clear Positive mild hematoma left cheek Neck- supple, no JVD, no adenopathy, no thyromegaly; carotids +2/2, no bruits appreciated Lungs- clear to auscultation bilaterally, no rales/wheezes Heart- normal rate, regular rhythm; no murmur, no gallop, no rub appreciated Abdomen- normal bowel sounds, nondistended, soft, nontender, no masses or hepatosplenomegaly Extremities-right lower extremity: Mild edema Left lower extremity: Positive significant edema, and hematoma on the distal thigh, knee, proximal lower leg with mild warmth and moderate tenderness Neuro- alert, oriented x 3; CN 2-12 grossly intact; motor 5/5 bilaterally;sensation 100% on all extremities; no other gross focal neurologic deficits Skin- warm & dry Results & Data Results & Data ([facility]) Vital Signs (Past 12 Hours) Vital Signs Temp Pulse Pulse Resp BP BP Pulse Ox 06/17/20 15:35 36.7 C 87 18 116/70 98 06/17/20 09:39 90 06/17/20 08:47 36.8 C 90 16 126/59 L 06/17/20 08:17 36.8 C 90 18 113/74 06/17/20 08:02 36.6 C 93 H 18 119/71 06/17/20 07:45 36.7 C 92 H 20 123/64 97 06/17/20 07:44 36.7 C 92 H 20 123/64 97 06/17/20 06:52 36.3 C L 86 18 121/65 96 06/17/20 05:52 36.8 C 88 18 110/65 95 06/17/20 05:22 36.8 C 89 14 114/74 97 06/17/20 05:07 36.7 C 86 18 122/70 98 06/17/20 04:50 36.6 C 94 H 20 114/74 96 Laboratory Results Laboratory Results - last 24 hr 06/16/20 06/16/20 06/16/20 16:04 16:04 16:04 WBC 9.00 RBC 2.32 L Hgb 7.0 L Hct 20.5 L* MCV 88.4 MCH 30.2 MCHC 34.1 RDW Std Deviation 54.6 H RDW Coeff of Jake 16.9 H Plt Count 199 MPV 10.5 H Immature Gran % (Auto) 0.3 Neut % (Auto) 76.6 Lymph % (Auto) 10.3 [place] % (Auto) 12.3 Eos % (Auto) 0.4 Baso % (Auto) 0.1 Neut # (Auto) 6.88 H Lymph # (Auto) 0.93 L [place] # (Auto) 1.11 H Eos # (Auto) 0.04 Baso # (Auto) 0.01 Immature Gran # (Auto) 0.03 H Hypochromasia Anisocytosis Target Cells 1+ PT > 90.0 H INR > 9.7 H* Sodium 129 L Potassium 2.9 L Chloride 96 L Carbon Dioxide 24 Anion Gap 8.0 BUN 26 H Creatinine 2.22 H Est Cr Clr Drug Dosing 32.9 Est GFR ( Amer) 27.4 Est GFR (Non-Af Amer) 23.7 BUN/Creatinine Ratio 11.9 Glucose 124 H Osmolality Calcium 8.0 L Phosphorus Magnesium 1.8 Iron TIBC Transferrin Ferritin Total Bilirubin 0.7 Direct Bilirubin AST 57 H ALT 32 Alkaline Phosphatase 210 H Ammonia Total Creatine Kinase 185 Troponin I < 0.015 Total Protein 5.1 L Albumin 2.2 L Globulin 2.9 Albumin/Globulin Ratio 0.7 L Vitamin B12 Folate TSH 3.770 Urine Color Urine Appearance Urine pH Ur Specific [place] Urine Protein Urine Glucose (UA) Urine Ketones Urine Blood Urine Nitrite Urine Bilirubin Urine Urobilinogen Ur Leukocyte Esterase Urine WBC (Auto) Urine RBC (Auto) U Hyaline Cast (Auto) U Epithel Cells (Auto) Urine Bacteria (Auto) Urine RBC Urine WBC Ur Epithelial Cells Ur Renal Epithelial Cell Urine Crystals Calcium Oxalate Crystal Uric Acid Crystals Triple Phos Crystals Other Crystals Amorphous Sediment Urine Bacteria Granular Casts Waxy Casts RBC Casts WBC Casts Other Casts Urine Mucus Urine Other Urine Trichomonas Urine Yeast Urine Sperm Ur Oval Fat Bodies Urine Osmolality Ur Random Sodium Urine Opiates Screen U Codeine Confrm GC/MS Ur Morphine (GC/MS) Ur Hydrocodone (GC/MS) Ur Norhydrocodone Ur Noroxycodone Urine Oxycodone (GC/MS) U Oxymorphone GC/MS Ur Methadone, Qual Ur Hydromorphone (GC/MS) Urine Barbiturates Ur Phencyclidine (PCP) U Amphetamin/Meth Scrn MDMA (Ecstasy) Screen U Benzodiazepines Scrn Ur Cocaine Metabolite U Marijuana (THC) Screen Drug Screen Comment Ethyl Alcohol mg/dL Blood Type Blood Type Recheck Antibody Screen Crossmatch 06/16/20 06/16/20 06/16/20 16:04 16:04 17:20 WBC RBC Hgb Hct MCV MCH MCHC RDW Std Deviation RDW Coeff of Jake Plt Count MPV Immature Gran % (Auto) Neut % (Auto) Lymph % (Auto) [place] % (Auto) Eos % (Auto) Baso % (Auto) Neut # (Auto) Lymph # (Auto) [place] # (Auto) Eos # (Auto) Baso # (Auto) Immature Gran # (Auto) Hypochromasia Anisocytosis Target Cells PT INR Sodium Potassium Chloride Carbon Dioxide Anion Gap BUN Creatinine Est Cr Clr Drug Dosing Est GFR ( Amer) Est GFR (Non-Af Amer) BUN/Creatinine Ratio Glucose Osmolality 271 L Calcium Phosphorus Magnesium Iron TIBC Transferrin Ferritin Total Bilirubin Direct Bilirubin AST ALT Alkaline Phosphatase Ammonia 72.2 H Total Creatine Kinase Troponin I Total Protein Albumin Globulin Albumin/Globulin Ratio Vitamin B12 Folate TSH Urine Color Urine Appearance Urine pH Ur Specific [place] Urine Protein Urine Glucose (UA) Urine Ketones Urine Blood Urine Nitrite Urine Bilirubin Urine Urobilinogen Ur Leukocyte Esterase Urine WBC (Auto) Urine RBC (Auto) U Hyaline Cast (Auto) U Epithel Cells (Auto) Urine Bacteria (Auto) Urine RBC Urine WBC Ur Epithelial Cells Ur Renal Epithelial Cell Urine Crystals Calcium Oxalate Crystal Uric Acid Crystals Triple Phos Crystals Other Crystals Amorphous Sediment Urine Bacteria Granular Casts Waxy Casts RBC Casts WBC Casts Other Casts Urine Mucus Urine Other Urine Trichomonas Urine Yeast Urine Sperm Ur Oval Fat Bodies Urine Osmolality Ur Random Sodium Urine Opiates Screen U Codeine Confrm GC/MS Ur Morphine (GC/MS) Ur Hydrocodone (GC/MS) Ur Norhydrocodone Ur Noroxycodone Urine Oxycodone (GC/MS) U Oxymorphone GC/MS Ur Methadone, Qual Ur Hydromorphone (GC/MS) Urine Barbiturates Ur Phencyclidine (PCP) U Amphetamin/Meth Scrn MDMA (Ecstasy) Screen U Benzodiazepines Scrn Ur Cocaine Metabolite U Marijuana (THC) Screen Drug Screen Comment Ethyl Alcohol mg/dL Blood Type O Positive Blood Type Recheck Antibody Screen NEGATIVE Crossmatch See Detail 06/16/20 06/16/20 06/16/20 17:42 18:19 18:19 WBC RBC Hgb Hct MCV MCH MCHC RDW Std Deviation RDW Coeff of Jake Plt Count MPV Immature Gran % (Auto) Neut % (Auto) Lymph % (Auto) [place] % (Auto) Eos % (Auto) Baso % (Auto) Neut # (Auto) Lymph # (Auto) [place] # (Auto) Eos # (Auto) Baso # (Auto) Immature Gran # (Auto) Hypochromasia Anisocytosis Target Cells PT INR Sodium Potassium Chloride Carbon Dioxide Anion Gap BUN Creatinine Est Cr Clr Drug Dosing Est GFR ( Amer) Est GFR (Non-Af Amer) BUN/Creatinine Ratio Glucose Osmolality Calcium Phosphorus Magnesium Iron 35 TIBC 141 L Transferrin 77 L Ferritin 446.5 H Total Bilirubin Direct Bilirubin AST ALT Alkaline Phosphatase Ammonia Total Creatine Kinase Troponin I Total Protein Albumin Globulin Albumin/Globulin Ratio Vitamin B12 Folate TSH Urine Color Urine Appearance Urine pH Ur Specific [place] Urine Protein Urine Glucose (UA) Urine Ketones Urine Blood Urine Nitrite Urine Bilirubin Urine Urobilinogen Ur Leukocyte Esterase Urine WBC (Auto) Urine RBC (Auto) U Hyaline Cast (Auto) U Epithel Cells (Auto) Urine Bacteria (Auto) Urine RBC Urine WBC Ur Epithelial Cells Ur Renal Epithelial Cell Urine Crystals Calcium Oxalate Crystal Uric Acid Crystals Triple Phos Crystals Other Crystals Amorphous Sediment Urine Bacteria Granular Casts Waxy Casts RBC Casts WBC Casts Other Casts Urine Mucus Urine Other Urine Trichomonas Urine Yeast Urine Sperm Ur Oval Fat Bodies Urine Osmolality Ur Random Sodium Urine Opiates Screen U Codeine Confrm GC/MS Ur Morphine (GC/MS) Ur Hydrocodone (GC/MS) Ur Norhydrocodone Ur Noroxycodone Urine Oxycodone (GC/MS) U Oxymorphone GC/MS Ur Methadone, Qual Ur Hydromorphone (GC/MS) Urine Barbiturates Ur Phencyclidine (PCP) U Amphetamin/Meth Scrn MDMA (Ecstasy) Screen U Benzodiazepines Scrn Ur Cocaine Metabolite U Marijuana (THC) Screen Drug Screen Comment Ethyl Alcohol mg/dL < 3.0 Blood Type Blood Type Recheck O Positive Antibody Screen Crossmatch 06/16/20 06/16/20 06/16/20 Unknown Unknown Unknown WBC RBC Hgb Hct MCV MCH MCHC RDW Std Deviation RDW Coeff of Jake Plt Count MPV Immature Gran % (Auto) Neut % (Auto) Lymph % (Auto) [place] % (Auto) Eos % (Auto) Baso % (Auto) Neut # (Auto) Lymph # (Auto) [place] # (Auto) Eos # (Auto) Baso # (Auto) Immature Gran # (Auto) Hypochromasia Anisocytosis Target Cells PT INR Sodium Potassium Chloride Carbon Dioxide Anion Gap BUN Creatinine Est Cr Clr Drug Dosing Est GFR ( Amer) Est GFR (Non-Af Amer) BUN/Creatinine Ratio Glucose Osmolality Calcium Phosphorus Magnesium Iron TIBC Transferrin Ferritin Total Bilirubin Direct Bilirubin AST ALT Alkaline Phosphatase Ammonia Total Creatine Kinase Troponin I Total Protein Albumin Globulin Albumin/Globulin Ratio Vitamin B12 Folate TSH Urine Color Yellow Urine Appearance Slightly Cloudy Urine pH 5.5 Ur Specific [place] 1.025 Urine Protein Negative Urine Glucose (UA) Negative Urine Ketones Negative Urine Blood Negative Urine Nitrite Negative Urine Bilirubin Negative Urine Urobilinogen Negative Ur Leukocyte Esterase 1+ H Urine WBC (Auto) Urine RBC (Auto) U Hyaline Cast (Auto) U Epithel Cells (Auto) Urine Bacteria (Auto) Urine RBC 0-4 Urine WBC >30 H Ur Epithelial Cells 20-30 H Ur Renal Epithelial Cell Urine Crystals Calcium Oxalate Crystal Uric Acid Crystals Triple Phos Crystals Other Crystals Amorphous Sediment Urine Bacteria 4+ H Granular Casts Waxy Casts RBC Casts WBC Casts Other Casts Urine Mucus Urine Other Urine Trichomonas Urine Yeast Urine Sperm Ur Oval Fat Bodies Urine Osmolality 214 L Ur Random Sodium Urine Opiates Screen Pos H U Codeine Confrm GC/MS Ur Morphine (GC/MS) Ur Hydrocodone (GC/MS) Ur Norhydrocodone Ur Noroxycodone Urine Oxycodone (GC/MS) U Oxymorphone GC/MS Ur Methadone, Qual Neg Ur Hydromorphone (GC/MS) Urine Barbiturates Neg Ur Phencyclidine (PCP) Neg U Amphetamin/Meth Scrn Neg MDMA (Ecstasy) Screen Neg U Benzodiazepines Scrn Neg Ur Cocaine Metabolite Neg U Marijuana (THC) Screen Neg Drug Screen Comment Ethyl Alcohol mg/dL Blood Type Blood Type Recheck Antibody Screen Crossmatch 06/16/20 06/16/20 06/16/20 Unknown Unknown Unknown WBC RBC Hgb Hct MCV MCH MCHC RDW Std Deviation RDW Coeff of Jake Plt Count MPV Immature Gran % (Auto) Neut % (Auto) Lymph % (Auto) [place] % (Auto) Eos % (Auto) Baso % (Auto) Neut # (Auto) Lymph # (Auto) [place] # (Auto) Eos # (Auto) Baso # (Auto) Immature Gran # (Auto) Hypochromasia Anisocytosis Target Cells PT INR Sodium Potassium Chloride Carbon Dioxide Anion Gap BUN Creatinine Est Cr Clr Drug Dosing Est GFR ( Amer) Est GFR (Non-Af Amer) BUN/Creatinine Ratio Glucose Osmolality Calcium Phosphorus Magnesium Iron TIBC Transferrin Ferritin Total Bilirubin Direct Bilirubin AST ALT Alkaline Phosphatase Ammonia Total Creatine Kinase Troponin I Total Protein Albumin Globulin Albumin/Globulin Ratio Vitamin B12 Folate TSH Urine Color Cancelled Urine Appearance Cancelled Urine pH Cancelled Ur Specific [place] Cancelled Urine Protein Cancelled Urine Glucose (UA) Cancelled Urine Ketones Cancelled Urine Blood Cancelled Urine Nitrite Cancelled Urine Bilirubin Cancelled Urine Urobilinogen Cancelled Ur Leukocyte Esterase Cancelled Urine WBC (Auto) Cancelled Urine RBC (Auto) Cancelled U Hyaline Cast (Auto) Cancelled U Epithel Cells (Auto) Cancelled Urine Bacteria (Auto) Cancelled Urine RBC Urine WBC Ur Epithelial Cells Ur Renal Epithelial Cell Cancelled Urine Crystals Cancelled Calcium Oxalate Crystal Cancelled Uric Acid Crystals Cancelled Triple Phos Crystals Cancelled Other Crystals Cancelled Amorphous Sediment Cancelled Urine Bacteria Granular Casts Cancelled Waxy Casts Cancelled RBC Casts Cancelled WBC Casts Cancelled Other Casts Cancelled Urine Mucus Cancelled Urine Other Cancelled Urine Trichomonas Cancelled Urine Yeast Cancelled Urine Sperm Cancelled Ur Oval Fat Bodies Cancelled Urine Osmolality Ur Random Sodium 10 Urine Opiates Screen U Codeine Confrm GC/MS Pending Ur Morphine (GC/MS) Pending Ur Hydrocodone (GC/MS) Pending Ur Norhydrocodone Pending Ur Noroxycodone Pending Urine Oxycodone (GC/MS) Pending U Oxymorphone GC/MS Pending Ur Methadone, Qual Ur Hydromorphone (GC/MS) Pending Urine Barbiturates Ur Phencyclidine (PCP) U Amphetamin/Meth Scrn MDMA (Ecstasy) Screen U Benzodiazepines Scrn Ur Cocaine Metabolite U Marijuana (THC) Screen Drug Screen Comment Pending Ethyl Alcohol mg/dL Blood Type Blood Type Recheck Antibody Screen Crossmatch 06/17/20 06/17/20 06/17/20 02:40 02:40 02:40 WBC 11.83 H RBC 2.47 L Hgb 7.2 L Hct 21.1 L MCV 85.4 MCH 29.1 MCHC 34.1 RDW Std Deviation 55.4 H RDW Coeff of Jake 17.5 H Plt Count 141 MPV 9.6 Immature Gran % (Auto) Neut % (Auto) Lymph % (Auto) [place] % (Auto) Eos % (Auto) Baso % (Auto) Neut # (Auto) Lymph # (Auto) [place] # (Auto) Eos # (Auto) Baso # (Auto) Immature Gran # (Auto) Hypochromasia Anisocytosis Target Cells PT 25.4 H INR 2.5 H Sodium Potassium Chloride Carbon Dioxide Anion Gap BUN Creatinine Est Cr Clr Drug Dosing Est GFR ( Amer) Est GFR (Non-Af Amer) BUN/Creatinine Ratio Glucose Osmolality Calcium Phosphorus Magnesium Iron TIBC Transferrin Ferritin Total Bilirubin Direct Bilirubin AST ALT Alkaline Phosphatase Ammonia Total Creatine Kinase Troponin I Total Protein Albumin Globulin Albumin/Globulin Ratio Vitamin B12 > 2000 H Folate 12.85 TSH Urine Color Urine Appearance Urine pH Ur Specific [place] Urine Protein Urine Glucose (UA) Urine Ketones Urine Blood Urine Nitrite Urine Bilirubin Urine Urobilinogen Ur Leukocyte Esterase Urine WBC (Auto) Urine RBC (Auto) U Hyaline Cast (Auto) U Epithel Cells (Auto) Urine Bacteria (Auto) Urine RBC Urine WBC Ur Epithelial Cells Ur Renal Epithelial Cell Urine Crystals Calcium Oxalate Crystal Uric Acid Crystals Triple Phos Crystals Other Crystals Amorphous Sediment Urine Bacteria Granular Casts Waxy Casts RBC Casts WBC Casts Other Casts Urine Mucus Urine Other Urine Trichomonas Urine Yeast Urine Sperm Ur Oval Fat Bodies Urine Osmolality Ur Random Sodium Urine Opiates Screen U Codeine Confrm GC/MS Ur Morphine (GC/MS) Ur Hydrocodone (GC/MS) Ur Norhydrocodone Ur Noroxycodone Urine Oxycodone (GC/MS) U Oxymorphone GC/MS Ur Methadone, Qual Ur Hydromorphone (GC/MS) Urine Barbiturates Ur Phencyclidine (PCP) U Amphetamin/Meth Scrn MDMA (Ecstasy) Screen U Benzodiazepines Scrn Ur Cocaine Metabolite U Marijuana (THC) Screen Drug Screen Comment Ethyl Alcohol mg/dL Blood Type Blood Type Recheck Antibody Screen Crossmatch 06/17/20 06/17/20 06/17/20 02:40 10:11 10:11 WBC 7.94 RBC 2.45 L Hgb 7.2 L Hct 20.9 L* MCV 85.3 MCH 29.4 MCHC 34.4 RDW Std Deviation 53.6 H RDW Coeff of Jake 17.2 H Plt Count 114 L MPV 9.8 Immature Gran % (Auto) 0.4 Neut % (Auto) 71.9 Lymph % (Auto) 15.1 [place] % (Auto) 11.6 Eos % (Auto) 0.9 Baso % (Auto) 0.1 Neut # (Auto) 5.71 Lymph # (Auto) 1.20 [place] # (Auto) 0.92 H Eos # (Auto) 0.07 Baso # (Auto) 0.01 Immature Gran # (Auto) 0.03 H Hypochromasia Present Anisocytosis Present Target Cells PT INR Sodium 130 L 131 L Potassium 3.5 D 3.3 L Chloride 100 100 Carbon Dioxide 21 21 Anion Gap 9.0 10.0 BUN 26 H 25 H Creatinine 2.11 H 2.02 H Est Cr Clr Drug Dosing 34.5 35.8 Est GFR ( Amer) 29.2 30.7 Est GFR (Non-Af Amer) 25.2 26.5 BUN/Creatinine Ratio 12.5 12.4 Glucose 104 H 122 H Osmolality Calcium 7.2 L 7.3 L Phosphorus 4.5 Magnesium 1.8 1.9 Iron TIBC Transferrin Ferritin Total Bilirubin 1.5 H D 1.5 H Direct Bilirubin 0.7 H AST 44 H 40 H ALT 27 26 Alkaline Phosphatase 170 H 158 H Ammonia Total Creatine Kinase Troponin I Total Protein 4.6 L 4.8 L Albumin 2.1 L 2.2 L Globulin 2.5 2.6 Albumin/Globulin Ratio 0.8 L 0.8 L Vitamin B12 Folate TSH Urine Color Urine Appearance Urine pH Ur Specific [place] Urine Protein Urine Glucose (UA) Urine Ketones Urine Blood Urine Nitrite Urine Bilirubin Urine Urobilinogen Ur Leukocyte Esterase Urine WBC (Auto) Urine RBC (Auto) U Hyaline Cast (Auto) U Epithel Cells (Auto) Urine Bacteria (Auto) Urine RBC Urine WBC Ur Epithelial Cells Ur Renal Epithelial Cell Urine Crystals Calcium Oxalate Crystal Uric Acid Crystals Triple Phos Crystals Other Crystals Amorphous Sediment Urine Bacteria Granular Casts Waxy Casts RBC Casts WBC Casts Other Casts Urine Mucus Urine Other Urine Trichomonas Urine Yeast Urine Sperm Ur Oval Fat Bodies Urine Osmolality Ur Random Sodium Urine Opiates Screen U Codeine Confrm GC/MS Ur Morphine (GC/MS) Ur Hydrocodone (GC/MS) Ur Norhydrocodone Ur Noroxycodone Urine Oxycodone (GC/MS) U Oxymorphone GC/MS Ur Methadone, Qual Ur Hydromorphone (GC/MS) Urine Barbiturates Ur Phencyclidine (PCP) U Amphetamin/Meth Scrn MDMA (Ecstasy) Screen U Benzodiazepines Scrn Ur Cocaine Metabolite U Marijuana (THC) Screen Drug Screen Comment Ethyl Alcohol mg/dL Blood Type Blood Type Recheck Antibody Screen Crossmatch 06/17/20 10:47 WBC RBC Hgb Hct MCV MCH MCHC RDW Std Deviation RDW Coeff of Jake Plt Count MPV Immature Gran % (Auto) Neut % (Auto) Lymph % (Auto) [place] % (Auto) Eos % (Auto) Baso % (Auto) Neut # (Auto) Lymph # (Auto) [place] # (Auto) Eos # (Auto) Baso # (Auto) Immature Gran # (Auto) Hypochromasia Anisocytosis Target Cells PT 17.6 H INR 1.7 H Sodium Potassium Chloride Carbon Dioxide Anion Gap BUN Creatinine Est Cr Clr Drug Dosing Est GFR ( Amer) Est GFR (Non-Af Amer) BUN/Creatinine Ratio Glucose Osmolality Calcium Phosphorus Magnesium Iron TIBC Transferrin Ferritin Total Bilirubin Direct Bilirubin AST ALT Alkaline Phosphatase Ammonia Total Creatine Kinase Troponin I Total Protein Albumin Globulin Albumin/Globulin Ratio Vitamin B12 Folate TSH Urine Color Urine Appearance Urine pH Ur Specific [place] Urine Protein Urine Glucose (UA) Urine Ketones Urine Blood Urine Nitrite Urine Bilirubin Urine Urobilinogen Ur Leukocyte Esterase Urine WBC (Auto) Urine RBC (Auto) U Hyaline Cast (Auto) U Epithel Cells (Auto) Urine Bacteria (Auto) Urine RBC Urine WBC Ur Epithelial Cells Ur Renal Epithelial Cell Urine Crystals Calcium Oxalate Crystal Uric Acid Crystals Triple Phos Crystals Other Crystals Amorphous Sediment Urine Bacteria Granular Casts Waxy Casts RBC Casts WBC Casts Other Casts Urine Mucus Urine Other Urine Trichomonas Urine Yeast Urine Sperm Ur Oval Fat Bodies Urine Osmolality Ur Random Sodium Urine Opiates Screen U Codeine Confrm GC/MS Ur Morphine (GC/MS) Ur Hydrocodone (GC/MS) Ur Norhydrocodone Ur Noroxycodone Urine Oxycodone (GC/MS) U Oxymorphone GC/MS Ur Methadone, Qual Ur Hydromorphone (GC/MS) Urine Barbiturates Ur Phencyclidine (PCP) U Amphetamin/Meth Scrn MDMA (Ecstasy) Screen U Benzodiazepines Scrn Ur Cocaine Metabolite U Marijuana (THC) Screen Drug Screen Comment Ethyl Alcohol mg/dL Blood Type Blood Type Recheck Antibody Screen Crossmatch
[2020-06-17] MEDS: POTASSIUM CHLORIDE PWD 20 MEQ PACK PO SCH ×2 (16:31→20:08)
--- NOTE | 2020-06-17 17:41 | Ultrasound Report ---
US abdomen ltd ascites HISTORY: 60 years-old Female r/o ascites abdominal distention with clinical concern for ascites COMPARISON: CT abdomen pelvis 03/19/2020 TECHNIQUE: Multiple real-time sonographic images of the abdomen were obtained assessing grayscale izabela earance and color flow FINDINGS: Trace ascites noted adjacent to the liver and also within the dependent pelvis. Increased echogenicit y of the liver suggestive of hepatic steatosis. Probable [place] catheter within the urinary bladder. IMPRESSION: Trace abdominal pelvic ascites. ACT 112: Negative or not required by law. The above report was generated using voice recognition software. It may contain grammatical, syntax o r spelling errors. Electronically signed by: Renan Campos M.D. 06/17/2020 5:39 PM
[2020-06-17] MEDS: AZTREONAM 1,000 MG in DEXTROSE 5% 50 ML IV SCH (20:15)
[2020-06-17] MEDS ORDERED: GABAPENTIN 600 MG TAB PO SCH (21:00)
[2020-06-17 22:20] LABS: Hematocrit (blood only) 19.1 % (37-47); Hemoglobin 6.7 g/dL (12.0-16.0)
[2020-06-17 22:34] LABS: BUN Creatinine Ratio 13.3 (10-20); Calcium 7.4 mg/dl (8.5-10.1); Est GFR (African American) 33.1; Est GFR (Non-African American) 28.6; Potassium 3.9 mmol/L (3.5-5.1)
--- NOTE | 2020-06-17 22:51 | Electrocardiogram Report ---
Test Reason : Blood Pressure : / mmHG Vent. Rate : 089 BPM Atrial Rate : 089 BPM P-R Int : 104 ms QRS Dur : 100 ms QT Int : 374 ms P-R-T Axes : 031 039 000 degrees QTc Int : 455 ms Poor data quality, interpretation may be adversely affected Sinus rhythm with short SD Nonspecific ST and T wave abnormality Abnormal ECG When compared with ECG of 23-MAR-2020 08:51, Nonspecific T wave abnormality, worse in Inferior leads Confirmed by Jose M Kc ([id number]) on 06/17/2020 10:51:12 PM Referred By: REFERRED SELF Confirmed By:Jose M Kc
[2020-06-18] MEDS ORDERED: MAGNESIUM SULFATE IV ONE (02:04)
[2020-06-18] MEDS ORDERED: POTASSIUM CHLORIDE 20 MEQ TABCR PO STA (02:04)
[2020-06-18] MEDS ORDERED: DEXTROSE 5% IV ONE (02:04)
[2020-06-18 02:25] LABS: Magnesium 1.8 mg/dl (1.8-2.4)
[2020-06-18] MEDS: AZTREONAM 1,000 MG in DEXTROSE 5% 50 ML IV SCH ×3 (03:29→19:45)
[2020-06-18 04:10] LABS: Hematocrit (blood only) 22.1 % (37-47); Hemoglobin 7.5 g/dL (12.0-16.0)
[2020-06-18] MEDS: LEVOTHYROXINE SODIUM 75 MCG TABLET PO SCH (05:55)
[2020-06-18] MEDS: RIFAXIMIN 550 MG TABLET PO SCH ×2 (08:03→19:48)
[2020-06-18] MEDS: FOLIC ACID 1 MG TAB PO SCH (08:03)
[2020-06-18] MEDS: MULTIVITAMIN TAB PO SCH (08:03)
[2020-06-18] MEDS: CYANOCOBALAMIN 500 MCG TABLET (VITAMIN B-12) PO SCH (08:03)
[2020-06-18] MEDS: THIAMINE HCL 100 MG TAB PO SCH (08:03)
[2020-06-18] MEDS: MAGNESIUM OXIDE 400 MG TAB PO SCH ×2 (08:04→19:48)
[2020-06-18] MEDS: PANTOprazole 40 MG TAB PO SCH ×2 (08:04→19:48)
[2020-06-18] MEDS: CHOLECALCIFEROL 1,000 UNITS 25 MCG TAB PO SCH (08:04)
[2020-06-18] MEDS: POLYETHYLENE (MIRALAX) 17 GM PACK PO SCH ×2 (08:05→17:09)
[2020-06-18] MEDS: ZINC SULFATE 220 MG CAPSULE PO SCH (08:05)
[2020-06-18] MEDS: DULOXETINE HCL 60 MG CAP PO SCH (08:07)
[2020-06-18] MEDS: POTASSIUM CHLORIDE PWD 20 MEQ PACK PO SCH ×2 (08:07→19:46)
--- NOTE | 2020-06-18 09:26 | Hospitalist Progress Note ---
Date of Service June 18, 2020 Assessment & Plan (1) Falls: 60-year-old female with history of Davis cirrhosis, atrial fibrillation on Coumadin, CKD stage III Gastric bypass with anastomotic ulcer, chronic pain syndrome, depression Presenting with multiple falls from home. Falls secondary to metabolic encephalopathy, multifactorial: Hepatic encephalopathy Ammonia level admission 72 Encephalopathy resolved today, oriented x3, answers questions appropriately Patient declining lactulose Continue rifaximin, MiraLAX closely Alcohol intoxication No signs of overt withdrawal today Continue alcohol withdrawal protocol including gabapentin Gabapentin to be renally dosed Dilaudid, gabapentin, Cymbalta use Will try to limit Dilaudid use Monitor closely Anemia, symptomatic, secondary to iron deficiency Possible acute blood loss secondary to left lower extremity hematoma Supratherapeutic INR Hemoglobin 7.2 on admission Status post 4 units of packed RBCs transfused Hemoglobin now at 7.9 Repeat hemoglobin at 9 PM Continue Protonix p.o. INR now 1.6, management per noted below Anemia seems to be secondary to acute blood loss from left lower extremity hematoma Messaged orthopedic service today, patient on n.p.o. status, until their evaluation for possible drainage Decompensated liver cirrhosis DAVIS cirrhosis Positive volume overload in the setting of acute renal failure and CKD stage III GI and nephrology consulted Lasix 40 mg IV with albumin ordered 3 times daily Monitor closely Septic work-up Blood cultures: Pending Urine culture: Klebsiella Continue daptomycin plus aztreonam Acute renal failure CKD stage III Creatinine improved from 2.2-1.6 Monitor while on Lasix Nephrology on board charge master specialist on board Klebsiella UTI Management per above Atrial fibrillation on Coumadin Supratherapeutic INR Hold Coumadin, given vitamin K K 10 mg IV and FFP INR 5, now 1.6 Currently in sinus rhythm Monitor Gastric bypass, status post anastomotic ulcer No signs of GI bleed at this point per GI Continue Protonix Monitor Chronic pain syndrome Patient may be misusing Dilaudid at home Monitor for now Depression Per admitting service patient may be having progression of depression symptoms secondary to being alone at home recently secondary to the pandemic Will consult psychiatry service DVT prophylaxis Anticoagulation contraindicated secondary to acute blood loss, hematoma Status contraindicated secondary to cellulitis versus hematoma Will encourage frequent ambulation when medically stable Disposition Lives at home but patient has been having multiple falls, presents with weakness and encephalopathy We will order PT and OT evaluation Most likely will need to transition to either rehab or alf facility Admission and Anticipated Discharge Date Admission Date: June 16, 2020 Subjective Follow-up for encephalopathy, multiple falls, liver cirrhosis, acute renal failure, supratherapeutic INR, etc. Next Seen resting in bed, sitting up, not in distress, oriented x3, answers all questions appropriately, in good spirits States she feels better today compared to yesterday Chief complaint is left lower extremity pain, denies any other pain in her body Denies shortness of breath, chest pain, palpitations, dizziness Denies headache, changes with vision, or any other focal neurologic deficits Denies abdominal pain pain, nausea or vomiting fevers or chills No other symptoms Review of Systems Review of Systems: All systems reviewed & are unremarkable except as noted in HPI & below Physical Exam Physical Exam: General- oriented x 3, not in distress, speaks in sentences with no effort or accessory muscle use Head-positive mild hematoma on the left forehead and left cheek, no edema or tenderness Oral exam, no bleeding or obvious injuries Eyes- anicteric Neck- no JVD Lungs- clear breath sounds bilaterally, no rales/wheezes Heart- normal rate, regular rhythm; no murmurs Abdomen- normal bowel sounds, nondistended, soft, nontender Extremities- no pretibial edema, no calf tenderness Left lower extremity-significant edema with hematoma on the distal thigh, knee, proximal lower leg with mild warmth, and tenderness Neuro- alert, oriented x 3; no gross focal neurologic deficits Skin- warm & dry Results & Data Results & Data ([facility]) Vital Signs (Past 12 Hours) Vital Signs Temp Pulse Pulse Resp BP BP Pulse Ox 06/18/20 08:08 36.5 C 95 H 19 116/68 97 06/18/20 02:46 36.7 C 94 H 16 109/70 94 06/18/20 01:56 36.9 C 92 H 18 106/69 98 06/18/20 01:29 36.8 C 93 H 17 111/64 97 06/18/20 00:29 36.8 C 92 H 20 112/78 97 06/17/20 23:59 36.7 C 90 20 110/61 99 06/17/20 23:44 36.8 C 94 H 14 114/75 99 06/17/20 23:27 36.8 C 90 18 109/66 99 Laboratory Results Laboratory Results - last 24 hr 08/06/17/20 06/17/20 17:20 21:52 21:52 WBC RBC Hgb 6.7 L* Hct 19.1 L* MCV MCH MCHC RDW Std Deviation RDW Coeff of Jake Plt Count MPV Immature Gran % (Auto) Neut % (Auto) Lymph % (Auto) [place] % (Auto) Eos % (Auto) Baso % (Auto) Neut # (Auto) Lymph # (Auto) [place] # (Auto) Eos # (Auto) Baso # (Auto) Immature Gran # (Auto) Target Cells PT INR Sodium 134 L Potassium 3.9 D Chloride 102 Carbon Dioxide 22 Anion Gap 10.0 BUN 25 H Creatinine 1.90 H Est Cr Clr Drug Dosing 38.0 Est GFR ( Amer) 33.1 Est GFR (Non-Af Amer) 28.6 BUN/Creatinine Ratio 13.3 Glucose 117 H Calcium 7.4 L Phosphorus Magnesium 1.8 Total Bilirubin AST ALT Alkaline Phosphatase Total Protein Albumin Globulin Albumin/Globulin Ratio Stool Occult Bld Scrn Blood Type O Positive Antibody Screen NEGATIVE Crossmatch See Detail 06/17/20 06/18/20 06/18/20 Unknown 03:50 09:12 WBC 6.84 RBC 2.65 L Hgb 7.5 L 7.9 L Hct 22.1 L 22.8 L MCV 86.0 MCH 29.8 MCHC 34.6 RDW Std Deviation 53.9 H RDW Coeff of Jake 17.2 H Plt Count 143 MPV 10.0 Immature Gran % (Auto) 0.7 Neut % (Auto) 64.5 Lymph % (Auto) 21.6 [place] % (Auto) 12.0 Eos % (Auto) 0.9 Baso % (Auto) 0.3 Neut # (Auto) 4.41 Lymph # (Auto) 1.48 [place] # (Auto) 0.82 H Eos # (Auto) 0.06 Baso # (Auto) 0.02 Immature Gran # (Auto) 0.05 H Target Cells 1+ PT INR Sodium Potassium Chloride Carbon Dioxide Anion Gap BUN Creatinine Est Cr Clr Drug Dosing Est GFR ( Amer) Est GFR (Non-Af Amer) BUN/Creatinine Ratio Glucose Calcium Phosphorus Magnesium Total Bilirubin AST ALT Alkaline Phosphatase Total Protein Albumin Globulin Albumin/Globulin Ratio Stool Occult Bld Scrn Negative Blood Type Antibody Screen Crossmatch 06/18/20 06/18/20 06/18/20 09:12 09:12 09:29 WBC RBC Hgb Hct MCV MCH MCHC RDW Std Deviation RDW Coeff of Jake Plt Count MPV Immature Gran % (Auto) Neut % (Auto) Lymph % (Auto) [place] % (Auto) Eos % (Auto) Baso % (Auto) Neut # (Auto) Lymph # (Auto) [place] # (Auto) Eos # (Auto) Baso # (Auto) Immature Gran # (Auto) Target Cells PT 16.9 H INR 1.6 H Sodium Cancelled 134 L Potassium Cancelled 4.1 Chloride Cancelled 103 Carbon Dioxide Cancelled 23 Anion Gap Cancelled 8.0 BUN Cancelled 23 H Creatinine Cancelled 1.66 H Est Cr Clr Drug Dosing Cancelled 43.6 Est GFR ( Amer) Cancelled 39.0 Est GFR (Non-Af Amer) Cancelled 33.6 BUN/Creatinine Ratio Cancelled 13.8 Glucose Cancelled 155 H Calcium Cancelled 7.3 L Phosphorus 3.1 D Magnesium 1.9 Total Bilirubin 1.4 H AST 27 ALT 23 Alkaline Phosphatase 149 H Total Protein 4.8 L Albumin 2.4 L Globulin 2.4 L Albumin/Globulin Ratio 1.0 Stool Occult Bld Scrn Blood Type Antibody Screen Crossmatch
[2020-06-18 09:39] LABS: Basophils # (auto) 0.02 K/uL (0-0.2); Basophils % (auto) 0.3 %; Eosinophils # (auto) 0.06 K/uL (0-0.5); Eosinophils % (auto) 0.9 %; Hematocrit (blood only) 22.8 % (37-47); Hemoglobin 7.9 g/dL (12.0-16.0); Immature Granulocytes # (auto) 0.05 K/uL (0.00-0.02); Immature Granulocytes % (auto) 0.7 %; Lymphocytes # (auto) 1.48 K/uL (1.2-3.4); Lymphocytes % (auto) 21.6 %; Mean Corpuscular Hemoglobin 29.8 pg (25-34); Mean Corpuscular Hgb Conc 34.6 g/dL (32-36); Monocytes # (auto) 0.82 K/uL (0.11-0.59); Neutrophils # (auto) 4.41 K/uL (1.4-6.5); Neutrophils % (auto) 64.5 %; Platelet Count 143 K/uL (130-400); RDW Coefficient of Variation 17.2 % (11.5-14.5); RDW Standard Deviation 53.9 fL (36.4-46.3); Red Blood Count 2.65 M/uL (4.2-5.4); White Blood Count 6.84 K/uL (4.8-10.8)
--- NOTE | 2020-06-18 09:45 | Gastroenterology Progress Note ---
Date of Service June 18, 2020 Assessment & Plan (1) Decompensated hepatic cirrhosis: 60 year old female with cirrhosis, following with Dr. Gallegos admitted with encephalopathy, anemia w/o evidence of GI bleeding Multifactorial etiology. No evidence of overt ongoing GI bleeding. If diarrhea returns, stool studies Septic work up Continue Rifaximin Lactulose titrated to BM Avoid narcotic analgesia Po PPI Follow up with regular GI as OP. Will sign off. Thank you for allowing us to participate in the care of this patient. Please call with any acute changes, questions or concerns. Please see addendum below with additional recommendation from my supervising physician. (2) Anemia: (3) Diarrhea: Admission and Anticipated Discharge Date Admission Date: June 16, 2020 Supervising Physician Co-Signing Physician Notes I have seen and examined the patient with LONG Gary whose note reflects our findings and plan. Subjective No concerns this AM Awake, alert and oriented Currently using commode No black or bloody stools. Currently reporting a formed stool ABD US w/ scant fluid Physical Exam Constitutional: no acute distress Scattered bruising Neck: trachea midline Respiratory: normal respiratory effort Cardiovascular: Rate/Rhythm: regular rate Gastrointestinal (Abdomen): Percussion/Palpation: abdomen soft; abdomen nontender and no guarding Results & Data ([facility]) Vital Signs (Past 12 Hours) Vital Signs Temp Pulse Pulse Resp BP BP Pulse Ox 06/18/20 08:08 36.5 C 95 H 19 116/68 97 06/18/20 02:46 36.7 C 94 H 16 109/70 94 06/18/20 01:56 36.9 C 92 H 18 106/69 98 06/18/20 01:29 36.8 C 93 H 17 111/64 97 06/18/20 00:29 36.8 C 92 H 20 112/78 97 06/17/20 23:59 36.7 C 90 20 110/61 99 06/17/20 23:44 36.8 C 94 H 14 114/75 99 06/17/20 23:27 36.8 C 90 18 109/66 99 (1) Anemia Anemia type: unspecified type Qualified Code(s): D64.9 - Anemia, unspecified
[2020-06-18 09:57] LABS: INR 1.6 (0.9-1.1); Prothrombin Time 16.9 Seconds (9.0-12.0)
[2020-06-18 10:02] LABS: Albumin Level 2.4 gm/dl (3.4-5.0); BUN Creatinine Ratio 13.8 (10-20); Calcium 7.3 mg/dl (8.5-10.1); Creatinine Clr Calc Pharmacy 43.6 ml/min; Est GFR (Non-African American) 33.6; Magnesium 1.9 mg/dl (1.8-2.4); Potassium 4.1 mmol/L (3.5-5.1)
[2020-06-18 10:03] LABS: Target Cells 1+
[2020-06-18] MEDS: PROMETHAZINE HCL 6.25 MG in SODIUM CHLORIDE 0.9% 50 ML IV PRN (10:06)
[2020-06-18] MEDS: ALBUMIN 25% 50 ML with FUROSEMIDE 40 MG IV SCH ×3 (10:06→21:17)
[2020-06-18 10:13] LABS: Bilirubin,Total 1.4 mg/dl (0.2-1); Globulin 2.4 gm/dl (2.5-4.0); Phosphorus 3.1 mg/dl (2.5-4.9); Total Protein 4.8 gm/dl (6.4-8.2)
[2020-06-18] MEDS ORDERED: HYDROCODONE/ACETAMOPHEN 5/325MG TAB PO PRN (10:21)
[2020-06-18] MEDS ORDERED: HYDROmorphone INJ 1 MG/ML SYRINGE IV PRN (10:21)
--- NOTE | 2020-06-18 10:48 | Nephrology Progress Note ---
Date of Service June 18, 2020 Assessment & Plan (1) Acute on chronic renal failure: Baseline creatinine 1.3 in late May; I doubt she was on any diuretics at that time though had been rx'd torsemide 20 mg daily for months (based on wts and chemistries Dec-June 2020). Torsemide dose increased to 60 mg daily on 06/12. Pt presented 06/16 with creatinine 2.2. Creatinine today down to 1.6. -Continue conservative management with daily BMP. -Monitor input output and avoid nephrotoxins. (2) Hypokalemia: Presented with K 2.9 on 06/16, up to 3.3 on 06/17. -started standing K 40 mEq bid granules to be given with minimal fluid, K4.1 today. -Monitor and replace as needed. (3) Decompensated hepatic cirrhosis: with severe volume overload >on daptomycin (dosed in a syringe) and aztreonam (dosed in 100 mL D5W) >> d/w pharmacy and they will concentrate aztreonam in 50 mL per dose or less >FR 1.5L; may need 1.2 L. <2 gm daily Na diet (Heart healthy diet is 3 gm daily Na) -Continue albumin while in-house. Admission and Anticipated Discharge Date Admission Date: June 16, 2020 Subjective Patient feels better today. She denies any shortness of breath. She is complaining of leg swelling. Creatinine is downtrending to 1.6. She was net - 1.7 L in 24 hours. Review of Systems Review of Systems: All systems reviewed & are unremarkable except as noted in HPI & below Physical Exam Physical Exam: General exam: Appears comfortable, no acute distress HEENT: Pupils are equal and reactive to light Neck: No JVD, neck is supple trachea is midline Respiratory system: Clear breath sounds bilaterally. Gastrointestinal: Abdomen is soft, non distended, non tender, bowel sounds are present CVS: Regular rate and rhythm. No murmurs, rubs or gallops Musculoskeletal: No joint or muscle tenderness Extremities: Non tender, 1+ edema, peripheral pulses are present Neuro: Oriented, no tremors, no focal neurological deficits Skin: No rashes Results & Data ([facility]) Vital Signs (Past 12 Hours) Vital Signs Temp Pulse Pulse Resp BP BP Pulse Ox 06/18/20 08:08 36.5 C 95 H 19 116/68 97 06/18/20 02:46 36.7 C 94 H 16 109/70 94 06/18/20 01:56 36.9 C 92 H 18 106/69 98 06/18/20 01:29 36.8 C 93 H 17 111/64 97 06/18/20 00:29 36.8 C 92 H 20 112/78 97 06/17/20 23:59 36.7 C 90 20 110/61 99 06/17/20 23:44 36.8 C 94 H 14 114/75 99 06/17/20 23:27 36.8 C 90 18 109/66 99 Laboratory Results 06/18/20 09:12 06/17/20 06/18/20 06/18/20 10:11 09:12 09:12 WBC 6.84 RBC 2.65 L MCV 86.0 MCH 29.8 MCHC 34.6 RDW Std Deviation 53.9 H RDW Coeff of Jake 17.2 H Plt Count 143 MPV 10.0 Phosphorus 4.5 3.1 D Albumin 2.2 L 2.4 L (1) Acute on chronic renal failure Acute renal failure type: unspecified Chronic kidney disease stage: stage 3 (moderate) Qualified Code(s): N17.9 - Acute kidney failure, unspecified; N18.3 - Chronic kidney disease, stage 3 (moderate)
[2020-06-18] MEDS: DAPTOmycin 300 MG in SYRINGE 0 ML IV SCH (15:46)
--- NOTE | 2020-06-18 18:00 | Orthopedic Progress Note ---
Date of Service June 18, 2020 Assessment & Plan (1) Traumatic hematoma of knee: Hematoma left knee. I do not feel personally this is a hemarthrosis. Leg was sterilely prepped with alcohol and Betadine and we did place an 18-gauge needle into the fluid collection and I was only able to withdraw about 4 cc of fluid all dark blood consistent with no infection and consistent with most likely organized hematoma with little liquefaction. My recommendation is conservative management ice this week and can follow with heat ice contrast in the future. She has been gentle PT have a knee immobilizer , full weightbearing in extension. Admission and Anticipated Discharge Date Admission Date: June 16, 2020 Subjective Still having pain left leg. Patient states she was having pain prior to the fall in the knee. Pain from the hematoma itself does not appear to be excessive at this time. Review of Systems Review of Systems: No fever Physical Exam Physical Exam: Left knee limited flexion with active flexion and about 60 degrees she can do a full straight leg raise without any extensor lag. The patella is not ballotable which would be consistent with no joint effusion. There is a hematoma lateral knee area distal femur suprapatellar region. Appears to be some fluctuance there is not tense. Patient has old scar from prior intramedullary rodding. Results & Data ([facility]) Vital Signs (Past 12 Hours) Vital Signs Temp Pulse Resp BP Pulse Ox 06/18/20 15:45 36.7 C 87 18 131/73 95 06/18/20 12:06 36.5 C 84 16 109/69 93 06/18/20 08:08 36.5 C 95 H 19 116/68 97
[2020-06-18] MEDS: HYDROmorphone HCL 2 MG TAB PO PRN (19:46)
[2020-06-18] MEDS ORDERED: GABAPENTIN 400 MG CAP PO SCH (21:00)
[2020-06-18 21:49] LABS: BUN Creatinine Ratio 13.7 (10-20); Calcium 8.4 mg/dl (8.5-10.1); Creatinine Clr Calc Pharmacy 44.4 ml/min; Est GFR (African American) 39.8; Est GFR (Non-African American) 34.4; Potassium 3.8 mmol/L (3.5-5.1)
[2020-06-19] MEDS: AZTREONAM 1,000 MG in DEXTROSE 5% 50 ML IV SCH ×3 (03:37→20:07)
[2020-06-19] MEDS: LEVOTHYROXINE SODIUM 75 MCG TABLET PO SCH (05:31)
[2020-06-19] MEDS: PANTOprazole 40 MG TAB PO SCH ×2 (07:59→20:13)
[2020-06-19] MEDS: FOLIC ACID 1 MG TAB PO SCH (07:59)
[2020-06-19] MEDS: ZINC SULFATE 220 MG CAPSULE PO SCH (07:59)
[2020-06-19] MEDS: RIFAXIMIN 550 MG TABLET PO SCH ×2 (07:59→20:13)
[2020-06-19] MEDS: DULOXETINE HCL 60 MG CAP PO SCH (07:59)
[2020-06-19] MEDS: MAGNESIUM OXIDE 400 MG TAB PO SCH ×2 (08:00→20:14)
[2020-06-19] MEDS: POTASSIUM CHLORIDE PWD 20 MEQ PACK PO SCH ×2 (08:00→08:06)
[2020-06-19] MEDS: CYANOCOBALAMIN 500 MCG TABLET (VITAMIN B-12) PO SCH (08:00)
[2020-06-19] MEDS: CHOLECALCIFEROL 1,000 UNITS 25 MCG TAB PO SCH (08:00)
[2020-06-19] MEDS: MULTIVITAMIN TAB PO SCH (08:00)
[2020-06-19] MEDS: THIAMINE HCL 100 MG TAB PO SCH (08:00)
[2020-06-19] MEDS: POLYETHYLENE (MIRALAX) 17 GM PACK PO SCH ×2 (08:00→17:02)
[2020-06-19] MEDS: ALBUMIN 25% 50 ML with FUROSEMIDE 40 MG IV SCH ×3 (08:55→21:32)
[2020-06-19 09:29] LABS: Basophils # (auto) 0.03 K/uL (0-0.2); Basophils % (auto) 0.5 %; Eosinophils # (auto) 0.13 K/uL (0-0.5); Eosinophils % (auto) 2.3 %; Hematocrit (blood only) 22.7 % (37-47); Hemoglobin 7.7 g/dL (12.0-16.0); Immature Granulocytes # (auto) 0.04 K/uL (0.00-0.02); Immature Granulocytes % (auto) 0.7 %; Lymphocytes # (auto) 2.15 K/uL (1.2-3.4); Lymphocytes % (auto) 37.8 %; Mean Corpuscular Hemoglobin 29.6 pg (25-34); Mean Corpuscular Hgb Conc 33.9 g/dL (32-36); Mean Corpuscular Volume 87.3 fL (80-100); Mean Platelet Volume 9.6 fL (7.4-10.4); Monocytes # (auto) 0.67 K/uL (0.11-0.59); Monocytes % (auto) 11.8 %; Neutrophils # (auto) 2.67 K/uL (1.4-6.5); Neutrophils % (auto) 46.9 %; Platelet Count 133 K/uL (130-400); RDW Coefficient of Variation 17.5 % (11.5-14.5); RDW Standard Deviation 55.3 fL (36.4-46.3); White Blood Count 5.69 K/uL (4.8-10.8)
[2020-06-19] MEDS: POTASSIUM CHLORIDE 20 MEQ TABCR PO SCH ×2 (09:33→20:13)
[2020-06-19 10:03] LABS: Hypochromasia Present; Target Cells 1+
[2020-06-19 10:08] LABS: BUN Creatinine Ratio 13.7 (10-20); Calcium 7.5 mg/dl (8.5-10.1); Creatinine Clr Calc Pharmacy 48.7 ml/min; Est GFR (African American) 45.5; Est GFR (Non-African American) 39.3; Potassium 3.5 mmol/L (3.5-5.1)
[2020-06-19] MEDS ORDERED: ACETAMINOPHEN 500 MG TAB PO PRN (10:08)
[2020-06-19] MEDS ORDERED: TRAMADOL HCL 50 MG TABLET PO PRN (10:08)
[2020-06-19 10:36] LABS: INR 1.5 (0.9-1.1); Prothrombin Time 15.1 Seconds (9.0-12.0)
--- NOTE | 2020-06-19 13:08 | Electrocardiogram Report ---
Test Reason : Blood Pressure : / mmHG Vent. Rate : 097 BPM Atrial Rate : 097 BPM P-R Int : 146 ms QRS Dur : 092 ms QT Int : 368 ms P-R-T Axes : 036 044 024 degrees QTc Int : 467 ms Normal sinus rhythm with sinus arrhythmia Nonspecific T wave abnormality Abnormal ECG When compared with ECG of 16-JUN-2020 15:49, SD interval has increased Confirmed by Tre Lanza ([id number]) on 06/19/2020 1:08:19 PM Referred By: REFERRED SELF Confirmed By:Tre Lanza
--- NOTE | 2020-06-19 15:14 | Nephrology Progress Note ---
Date of Service June 19, 2020 Assessment & Plan (1) Acute on chronic renal failure: Baseline creatinine 1.3 in late May; I doubt she was on any diuretics at that time though had been rx'd torsemide 20 mg daily for months (based on wts and chemistries Dec-June 2020). Torsemide dose increased to 60 mg daily on 06/12. Pt presented 06/16 with creatinine 2.2. Creatinine today down to 1.46. -Continue conservative management and monitoring with daily BMP. -Monitor input output and avoid nephrotoxins. (2) Hypokalemia: Presented with K 2.9 on 06/16, up to 3.3 on 06/17. K3.5 today -Continue K 40 mEq bid granules to be given with minimal fluid -Monitor and replace as needed. (3) Decompensated hepatic cirrhosis: with severe volume overload >on daptomycin (dosed in a syringe) and aztreonam (dosed in 100 mL D5W) >> d/w pharmacy and they will concentrate aztreonam in 50 mL per dose or less >FR 1.5L; may need 1.2 L. <2 gm daily Na diet (Heart healthy diet is 3 gm daily Na) -Recommend stopping albumin Admission and Anticipated Discharge Date Admission Date: June 16, 2020 Subjective Patient feels better today. She is more awake. She would like to stop drinking but keeps relapsing. She lives alone in [facility]. She has adult children who are not nearby. She is interested in making friends but states her neighbors are not friendly Review of Systems Review of Systems: All systems reviewed & are unremarkable except as noted in HPI & below Physical Exam Physical Exam: General exam: Appears comfortable, no acute distress HEENT: Pupils are equal and reactive to light Neck: No JVD, neck is supple trachea is midline Respiratory system: Clear breath sounds bilaterally. Gastrointestinal: Abdomen is soft, non distended, non tender, bowel sounds are present CVS: Regular rate and rhythm. No murmurs, rubs or gallops Musculoskeletal: No joint or muscle tenderness Extremities: Non tender, 2+ edema, peripheral pulses are present Neuro: Oriented, no tremors, no focal neurological deficits Skin: No rashes, bruises on the left leg and left face Results & Data ([facility]) Vital Signs (Past 12 Hours) Vital Signs Temp Pulse Pulse Resp BP BP Pulse Ox 06/19/20 11:05 36.7 C 86 19 126/77 99 06/19/20 08:00 86 06/19/20 07:11 36.8 C 89 18 110/71 94 Laboratory Results 06/19/20 09:10 06/19/20 09:10 WBC 5.69 RBC 2.60 L MCV 87.3 MCH 29.6 MCHC 33.9 RDW Std Deviation 55.3 H RDW Coeff of Jake 17.5 H Plt Count 133 MPV 9.6 (1) Acute on chronic renal failure Acute renal failure type: unspecified Chronic kidney disease stage: stage 3 (moderate) Qualified Code(s): N17.9 - Acute kidney failure, unspecified; N18.3 - Chronic kidney disease, stage 3 (moderate)
[2020-06-19] MEDS: DAPTOmycin 300 MG in SYRINGE 0 ML IV SCH (15:58)
--- NOTE | 2020-06-19 18:28 | Hospitalist Progress Note ---
Date of Service June 19, 2020 Assessment & Plan (1) Falls: 60-year-old female with history of Davis cirrhosis, atrial fibrillation on Coumadin, CKD stage III, Gastric bypass with anastomotic ulcer, chronic pain syndrome, depression, Presenting with multiple falls from home. In summary, patient lives alone and was admitted for multiple falls found to be multifactorial secondary hepatic encephalopathy, alcohol intoxication, Dilaudid use, symptomatic anemia due to acute blood loss from left lower leg hematoma. Hepatic encephalopathy resolved fairly quickly, back to baseline mental status. Clinically improving overall. Septic work-up revealing left lower extremity cellulitis and UTI. Patient responding well to IV antibiotics. Also not showing signs of acute alcohol withdrawal or DTs while on protocol. Narcotics discontinued. Anemia felt to be secondary to acute blood loss secondary to left lower extremity hematoma in the setting of supratherapeutic INR. Given 4 units of packed RBCs, hemoglobin stable so far. INR also reversed with vitamin K IV and FFP. Orthopedic service attempted to drain the left knee hematoma, but was not successful. Advised ice packing and conservative measures. For volume overload in the setting of liver cirrhosis, nephrology consulted given acute renal failure. Lasix IV given, with improvement of volume status and improvement of creatinine as well. Falls secondary to metabolic encephalopathy, multifactorial: Hepatic encephalopathy Ammonia level admission 72 Encephalopathy resolved , oriented x3, answers questions appropriately Patient declining lactulose Continue rifaximin, MiraLAX closely Alcohol intoxication No signs of overt withdrawal since admission Continue alcohol withdrawal protocol including gabapentin Gabapentin renally dosed Dilaudid, gabapentin, Cymbalta use Try to limit Dilaudid use Monitor closely Anemia, symptomatic, secondary to iron deficiency Likely acute blood loss secondary to left lower extremity hematoma, with cellulitis Supratherapeutic INR on admission, reversed with vitamin K and FFP, INR now 1.5 Hemoglobin 7.2 on admission Status post 4 units of packed RBCs transfused Hemoglobin now at 7.9 CT Left lower ext: 1. No acute fracture or dislocation. 2. Postsurgical changes as above. No evidence of hardware complication. 3. Diffuse subcutaneous edema suggests cellulitis, venous stasis or lymphedema. 4. Partially imaged probable hematoma of the prepatellar tissues measures over 6 cm. 5. Partially imaged joint effusion of the knee. Status post attempted left knee drainage by orthopedic service 06/18/2020, only 4 cc of dark blood obtained, with no signs of infection and consistent with venous hematoma Recommend gentle PT, knee immobilizer, full weightbearing in extension Continue daptomycin day #3 Klebsiella UTI Urine culture: Klebsiella Continue aztreonam day #3 Decompensated liver cirrhosis DAVIS cirrhosis Positive volume overload in the setting of acute renal failure and CKD stage III GI and nephrology consulted Lasix 40 mg IV with albumin ordered 3 times daily Patient diuresed adequately, volume overload improved Nephrology recommends to DC Lasix Usual torsemide on hold, discuss with nephrology Acute renal failure, CKD III Creatinine improved from 2.2 -->1.4 Nephrology on board Atrial fibrillation on Coumadin Supratherapeutic INR 5 on admission Held Coumadin, given vitamin K K 10 mg IV and FFP INR now 1.5 Currently in sinus rhythm Chads Vasc score 1 Based on patient's presentation, not a good candidate for long-term anticoagulation Will consult cardiology regarding discontinuation of anticoagulation for this pa tient Gastric bypass, status post anastomotic ulcer No signs of GI bleed at this point per GI Continue Protonix Monitor Chronic pain syndrome Patient may be misusing Dilaudid at home will need to be weaned off Dilaudid Depression Per admitting service patient may be having progression of depression symptoms secondary to being alone at home recently secondary to the pandemic Will consult psychiatry service DVT prophylaxis Anticoagulation contraindicated secondary to acute blood loss, hematoma Status contraindicated secondary to cellulitis versus hematoma Will encourage frequent ambulation when medically stable Disposition Lives at home but patient has been having multiple falls, presents with weakness and encephalopathy PT and OT evaluation ordered Most likely will need to transition to either rehab or snf facility She is also interested in transitioning to alcohol rehab after physical rehab stay Plan of care discussed with patient in detail and at length All questions were answered she is understanding, agreeable and comfortable with plan of care Admission and Anticipated Discharge Date Admission Date: June 16, 2020 Subjective Follow-up for status post multiple falls, multifactorial secondary to alcoholism, Dilaudid use, anemia, decompensated liver cirrhosis Seen sleeping but easily awakened, in good spirits, oriented x3 Answers all questions appropriately States she continues to feel improved Was having sternal chest pain today, sharp, located with 2 fingers, worse with inspiration and palpation of the sternum Otherwise denies shortness of breath, nausea vomiting, dizziness, headache Left lower leg pain also improving No fevers or chills No other symptom Review of Systems Review of Systems: All systems reviewed & are unremarkable except as noted in HPI & below Physical Exam Physical Exam: General- oriented x 3, not in distress, speaks in sentences with no effort or accessory muscle use Eyes- anicteric Neck- no JVD Lungs- clear breath sounds bilaterally, no rales/wheezes Positive mild tenderness to palpation of the lower sternum Heart- normal rate, regular rhythm; no murmurs Abdomen- normal bowel sounds, nondistended, soft, nontender Extremities-right lower extremity, essentially normal Lower extremity: Positive significant edema, improving Hematoma also improving No warmth/tenderness Neuro- alert, oriented x 3; no gross focal neurologic deficits Skin- warm & dry Results & Data Results & Data ([facility]) Vital Signs (Past 12 Hours) Vital Signs Temp Pulse Pulse Resp BP BP Pulse Ox 06/19/20 16:11 37.0 C 89 17 126/80 94 06/19/20 11:05 36.7 C 86 19 126/77 99 06/19/20 08:00 86 06/19/20 07:11 36.8 C 89 18 110/71 94 Laboratory Results Laboratory Results - last 24 hr 06/18/20 06/18/20 06/19/20 21:12 21:12 09:10 WBC 5.69 RBC 2.60 L Hgb 7.8 L 7.7 L Hct 22.7 L MCV 87.3 MCH 29.6 MCHC 33.9 RDW Std Deviation 55.3 H RDW Coeff of Jake 17.5 H Plt Count 133 MPV 9.6 Immature Gran % (Auto) 0.7 Neut % (Auto) 46.9 Lymph % (Auto) 37.8 [place] % (Auto) 11.8 Eos % (Auto) 2.3 Baso % (Auto) 0.5 Neut # (Auto) 2.67 Lymph # (Auto) 2.15 [place] # (Auto) 0.67 H Eos # (Auto) 0.13 Baso # (Auto) 0.03 Immature Gran # (Auto) 0.04 H Hypochromasia Present Target Cells 1+ PT INR Sodium 137 Potassium 3.8 Chloride 103 Carbon Dioxide 25 Anion Gap 9.0 BUN 22 H Creatinine 1.63 H Est Cr Clr Drug Dosing 44.4 Est GFR ( Amer) 39.8 Est GFR (Non-Af Amer) 34.4 BUN/Creatinine Ratio 13.7 Glucose 135 H Calcium 8.4 L D 06/19/20 06/19/20 06/19/20 09:10 09:10 10:07 WBC RBC Hgb Hct MCV MCH MCHC RDW Std Deviation RDW Coeff of Jake Plt Count MPV Immature Gran % (Auto) Neut % (Auto) Lymph % (Auto) [place] % (Auto) Eos % (Auto) Baso % (Auto) Neut # (Auto) Lymph # (Auto) [place] # (Auto) Eos # (Auto) Baso # (Auto) Immature Gran # (Auto) Hypochromasia Target Cells PT Cancelled 15.1 H INR Cancelled 1.5 H Sodium 136 Potassium 3.5 Chloride 104 Carbon Dioxide 24 Anion Gap 8.0 BUN 20 H Creatinine 1.46 H Est Cr Clr Drug Dosing 48.7 Est GFR ( Amer) 45.5 Est GFR (Non-Af Amer) 39.3 BUN/Creatinine Ratio 13.7 Glucose 113 H Calcium 7.5 L
[2020-06-19] MEDS ORDERED: GABAPENTIN 100 MG CAP PO SCH (21:00)
[2020-06-19] MEDS: HYDROmorphone HCL 2 MG TAB PO PRN (22:18)
[2020-06-19 22:59] LABS: Codeine Urine NEGATIVE ng/mL (<50); Hydrocodone Urine NEGATIVE ng/mL (<50); Hydromor Urine 4480 ng/mL (<50); Morphine Urine NEGATIVE ng/mL (<50); Norhydrocodone Conf Ur NEGATIVE ng/mL (<50); Noroxycodone Urine NEGATIVE ng/mL (<50); Oxycodone Urine NEGATIVE ng/mL (<50); Oxymorph Urine NEGATIVE ng/mL (<50)
[2020-06-20] MEDS: AZTREONAM 1,000 MG in DEXTROSE 5% 50 ML IV SCH ×3 (03:48→19:48)
[2020-06-20] MEDS: LEVOTHYROXINE SODIUM 75 MCG TABLET PO SCH (05:31)
[2020-06-20 06:48] LABS: Hematocrit (blood only) 18.8 % (37-47); Hemoglobin 6.3 g/dL (12.0-16.0); Mean Corpuscular Hemoglobin 29.4 pg (25-34); Mean Corpuscular Hgb Conc 33.5 g/dL (32-36); Mean Corpuscular Volume 87.9 fL (80-100); Mean Platelet Volume 9.4 fL (7.4-10.4); Platelet Count 106 K/uL (130-400); RDW Coefficient of Variation 17.7 % (11.5-14.5); RDW Standard Deviation 55.9 fL (36.4-46.3); Red Blood Count 2.14 M/uL (4.2-5.4); White Blood Count 4.35 K/uL (4.8-10.8)
[2020-06-20 06:55] LABS: INR 1.4 (0.9-1.1); Prothrombin Time 14.7 Seconds (9.0-12.0)
[2020-06-20 07:19] LABS: BUN Creatinine Ratio 14.5 (10-20); Calcium 8.3 mg/dl (8.5-10.1); Creatinine Clr Calc Pharmacy 55.8 ml/min; Est GFR (Non-African American) 48.3; Potassium 3.9 mmol/L (3.5-5.1)
[2020-06-20 07:48] LABS: Basophils # (auto) 0.03 K/uL (0-0.2); Basophils % (auto) 0.7 %; Eosinophils # (auto) 0.22 K/uL (0-0.5); Eosinophils % (auto) 5.1 %; Immature Granulocytes # (auto) 0.03 K/uL (0.00-0.02); Immature Granulocytes % (auto) 0.7 %; Lymphocytes # (auto) 2.12 K/uL (1.2-3.4); Lymphocytes % (auto) 48.7 %; Monocytes # (auto) 0.58 K/uL (0.11-0.59); Monocytes % (auto) 13.3 %; Neutrophils # (auto) 1.37 K/uL (1.4-6.5); Neutrophils % (auto) 31.5 %; Smudge Cells Present
--- NOTE | 2020-06-20 08:04 | Hospitalist Progress Note ---
Date of Service June 20, 2020 Assessment & Plan (1) Falls: 60-year-old female with history of Davis cirrhosis, atrial fibrillation on Coumadin, CKD stage III, Gastric bypass with anastomotic ulcer, chronic pain syndrome, depression, Presenting with multiple falls from home. In summary, patient lives alone and was admitted for multiple falls found to be multifactorial secondary hepatic encephalopathy, alcohol intoxication, Dilaudid use, symptomatic anemia due to acute blood loss from left lower leg hematoma. Hepatic encephalopathy resolved fairly quickly, back to baseline mental status. Clinically improving overall. Septic work-up revealing left lower extremity cellulitis and UTI. Patient responding well to IV antibiotics. Also not showing signs of acute alcohol withdrawal or DTs while on protocol. Narcotics discontinued. Anemia felt to be secondary to acute blood loss secondary to left lower extremity hematoma in the setting of supratherapeutic INR. Given 4 units of packed RBCs, hemoglobin stable so far. INR also reversed with vitamin K IV and FFP. Orthopedic service attempted to drain the left knee hematoma, but was not successful. Advised ice packing and conservative measures. For volume overload in the setting of liver cirrhosis, nephrology consulted given acute renal failure. Lasix IV given, with improvement of volume status and improvement of creatinine as well. Hb today 6.3, repeat pending Falls secondary to metabolic encephalopathy, multifactorial: Hepatic encephalopathy Ammonia level admission 72 Encephalopathy resolved , oriented x3, answers questions appropriately Patient declining lactulose Continue rifaximin, MiraLAX Alcohol intoxication No signs of overt withdrawal since admission Continue alcohol withdrawal protocol including gabapentin Gabapentin renally dosed Dilaudid, gabapentin, Cymbalta use Try to limit Dilaudid use Monitor closely Anemia, symptomatic, secondary to iron deficiency Likely acute blood loss secondary to left lower extremity hematoma, with cellulitis Supratherapeutic INR on admission, reversed with vitamin K and FFP, INR now 1.5 Hemoglobin 7.2 on admission Status post 4 units of packed RBCs transfused Transfuse when Hb<=7 CT Left lower ext: 1. No acute fracture or dislocation. 2. Postsurgical changes as above. No evidence of hardware complication. 3. Diffuse subcutaneous edema suggests cellulitis, venous stasis or lymphedema. 4. Partially imaged probable hematoma of the prepatellar tissues measures over 6 cm. 5. Partially imaged joint effusion of the knee. Status post attempted left knee drainage by orthopedic service 06/18/2020, only 4 cc of dark blood obtained, with no signs of infection and consistent with venous hematoma Recommend gentle PT, knee immobilizer, full weightbearing in extension Continue daptomycin day #3 Klebsiella UTI Urine culture: Klebsiella Continue aztreonam day #4 Decompensated liver cirrhosis DAVIS cirrhosis Positive volume overload in the setting of acute renal failure and CKD stage III GI and nephrology on case s/p Lasix 40 mg IV with albumin ordered 3 times daily Patient diuresed adequately, volume overload improved Nephrology recommends to DC Lasix Usual torsemide on hold Acute renal failure, CKD III Nephrology on board Atrial fibrillation on Coumadin Supratherapeutic INR 5 on admission Held Coumadin, given vitamin K K 10 mg IV and FFP Currently in sinus rhythm Chads Vasc score 1 Based on patient's presentation, not a good candidate for long-term anticoagulation cardiology regarding discontinuation of anticoagulation for this patient Gastric bypass, status post anastomotic ulcer No signs of GI bleed at this point per GI Continue Protonix Monitor Chronic pain syndrome Patient may be misusing Dilaudid at home will need to be weaned off Dilaudid Depression Per admitting service patient may be having progression of depression symptoms secondary to being alone at home recently secondary to the pandemic Will consult psychiatry service DVT prophylaxis Anticoagulation contraindicated secondary to acute blood loss, hematoma Status contraindicated secondary to cellulitis versus hematoma Will encourage frequent ambulation when medically stable Disposition Lives at home, but patient has been having multiple falls, presents with weakness and encephalopathy PT and OT evaluation Most likely will need to transition to either rehab or residential facility She is also interested in transitioning to alcohol rehab after physical rehab stay labs checked ROS-No Headache, No Visual Changes, No Nausea, No Vomiting, No Fever, No Chills, No Neck Pain or Stiffness, No Chest Pain, No Palpitations, No SOB, No THURMAN, No Cough, No Sputum, No Wheezing, No Abdominal Pain, No Diarrhea, No Hematemesis, No Hemoptysis, No Unexpected Weight Loss, No Flank pain, No Melena, No Hematochezia, No Frequency, No Urgency, No Burning, No Hematuria, No Rashes, No Diaphoresis. Appetite is Normal Physical Exam Gen-AAO x 3, NAD, Afebrile Head-NCAT, EOMI, PERRLA, Anicteric Sclera, No Posterior Pharyngeal Erythema Neck-Supple, No JVD, No Thyromegaly, No Masses, No LAD, No Bruits Lungs-Clear to Auscultation Bilaterally, No Rales, No Rhonchi, No Wheezing, No Crepitus Chest-No S4, +S1, +S2, No S3, No Murmurs, No Rubs, No Gallops, No Ectopy Abdomen-Soft, Bowel Sounds Present, Non Tender, Non Distended, No Hepatomegaly, No Splenomegaly, No Palpable Masses, No Rebound, No Rigidity, No Guarding Musculoskeletal-Full Range of Motion Bilaterally, No CVAT Extremities-No Cyanosis, No Clubbing, No Edema Nuero-Cranial Nerves II-XII grossly intact, Motor WNL, DTRs WNL, Strength WNL, Non Focal Psych-Normal Mood Admission and Anticipated Discharge Date Admission Date: June 16, 2020 Results & Data Results & Data ([facility]) Vital Signs (Past 12 Hours) Vital Signs Temp Pulse Pulse Resp BP BP Pulse Ox 06/20/20 07:12 36.6 C 92 H 20 114/71 97 06/20/20 03:18 36.9 C 92 H 18 121/75 96 06/19/20 23:37 93 H 06/19/20 23:13 37.0 C 94 H 18 122/74 97
[2020-06-20] MEDS: RIFAXIMIN 550 MG TABLET PO SCH ×2 (08:12→20:11)
[2020-06-20] MEDS: CYANOCOBALAMIN 500 MCG TABLET (VITAMIN B-12) PO SCH (08:13)
[2020-06-20] MEDS: MAGNESIUM OXIDE 400 MG TAB PO SCH ×2 (08:13→20:11)
[2020-06-20] MEDS: POTASSIUM CHLORIDE 20 MEQ TABCR PO SCH ×2 (08:13→20:11)
[2020-06-20] MEDS: MULTIVITAMIN TAB PO SCH (08:13)
[2020-06-20] MEDS: PANTOprazole 40 MG TAB PO SCH ×2 (08:13→20:12)
[2020-06-20] MEDS: FOLIC ACID 1 MG TAB PO SCH (08:13)
[2020-06-20] MEDS: CHOLECALCIFEROL 1,000 UNITS 25 MCG TAB PO SCH (08:13)
[2020-06-20] MEDS: DULOXETINE HCL 60 MG CAP PO SCH (08:14)
[2020-06-20] MEDS: ZINC SULFATE 220 MG CAPSULE PO SCH (08:14)
[2020-06-20] MEDS: POLYETHYLENE (MIRALAX) 17 GM PACK PO SCH ×2 (08:14→16:32)
[2020-06-20] MEDS: THIAMINE HCL 100 MG TAB PO SCH (08:14)
[2020-06-20 08:21] LABS: Hematocrit (blood only) 21.4 % (37-47); Hemoglobin 7.2 g/dL (12.0-16.0)
--- NOTE | 2020-06-20 08:27 | Psychiatric Consultation ---
Date of Consultation June 20, 2020 Impression / Recommendations Impression Dr. Effie King was directly involved in review and discussion of the patient's case and participated in medical decision making regarding treatment recommendations. RECOMMENDATIONS: 06/20 - Psychiatric consultation requested by hospitalist service to evaluate patient for depression. Pt has had outpatient psychiatric treatment in the past, and is currently prescribed duloxetine 60mg daily. Pt was only able to tolerate a limited interview due to significant nausea and episodes of emesis during our conversation. - Given reports of significant nausea, and patient's episodic vomiting it would not be suggested to adjust her psychotropic medications until she is more stable medically - as to avoid common side effects from contributing to her current distressing symptoms. Pt is also unwilling to make medication adjustments in this state. Duloxetine could certainly be titrated on an outpatient basis, or alternative adjustments could be considered. Recommend continuing duloxetine unchanged at this time. - Will attempt to solidify outpatient services, as patient appears to have lost services when [facility] transferred to [facility]. Pt would benefit from a referral to continue these services. There does not seem to be an indication for inpatient psychiatric hospitalization at this time. - Please reach out to our service with any additional questions or updates. Psych History Identifying Data 60-year-old female admitted medically on 06/16/2020 after presenting to the ED after sustaining a fall at home. Pt is being treated for decompensated hepatic cirrhosis and acute metabolic encephalopathy. Psychiatric consultation was requested by our hospitalist service to evaluate patient for depression. Chief Complaint "I'm super nauseous. I'm not sure how much good I'll be." History of Present Illness Cherrie Ascencio is a 60-year-old female admitted medically on 06/16/2020 after presenting to the ED following a fall sustained at home. Pt is being treated for decompensated hepatic cirrhosis and acute metabolic encephalopathy, among numerous other medical conditions. Psychiatric consultation was requested to evaluate patient for depression. Pt is alert upon this provider's arrival, but she admits to nausea that she believes may impair her ability to participate in a more thorough conversation at this time. Pt was agreeable to at least providing information necessary for an assessment. Pt admits that her mood has been lower than usual "since this whole thing started" - admittedly referring to changes related to COVID-19 pandemic. Pt states she is more isolated and is having some difficulty adapting to the changes. Pt admits to worsening mood as well as increased depression. She states she had been seen at [facility] for psychiatric treatment in the past, but services were not established when the office closed (unable to verify the cause of this). Pt admits she would be willing for outpatient psychiatric follow-up. She denies SI or acute safety concerns at this time. Pt was encouraged to reach out to our service if she wishes to discuss her symptoms in greater detail when she is feeling better physically. Pt is willing for us to make outpatient referrals on her behalf and denies other needs at this time aside from "something to help my nausea." Past Psychiatric History Outpatient Services: None presently. Outpatient services were not transferred when [facility] closed in 12/2019. Pt was previously seen by Dr. Dubois and also had an established therapist. Previous Psych Admissions: Denied History of Previous Suicide Attempt: No Allergies Allergy/AdvReac Type Severity Reaction Status Date / Time cefaclor Allergy Intermediate Swelling Verified 06/16/20 16:22 oxycodone Allergy Intermediate HIVES Verified 06/16/20 16:22 amoxicillin Allergy Mild Nausea Verified 06/16/20 16:22 ceftriaxone [From Rocephin] Allergy Rash Verified 06/16/20 16:22 metronidazole [From Flagyl] Allergy Rash Verified 06/16/20 16:22 Home Medications Home Medications Medication Instructions Recorded Confirmed Type cyanocobalamin (vitamin B-12) 1,000 mcg PO QAM 08/22/18 06/16/20 History [Vitamin B-12] hydromorphone [Dilaudid] 2 mg PO BID PRN 08/22/18 06/16/20 History levothyroxine [Synthroid] 75 mcg PO QAM 08/22/18 06/16/20 History magnesium oxide 400 mg PO BID 08/22/18 06/16/20 History multivitamin 1 tab PO QAM 08/22/18 06/16/20 History ondansetron HCl [Zofran] 4 mg PO Q8 PRN 08/22/18 06/16/20 History sucralfate [Carafate] 1 g PO BID PRN 08/22/18 06/16/20 History zinc sulfate 220 mg PO QAM 08/22/18 06/16/20 History cholecalciferol (vitamin D3) 4,000 unit PO DAILY 10/03/18 06/16/20 History [Vitamin D3] rifaximin [Xifaxan] 550 mg PO BID 10/03/18 06/16/20 History duloxetine [Cymbalta] 60 mg PO QAM 07/19/19 06/16/20 History lactulose [Generlac] 45 ml PO DAILY PRN 07/19/19 06/16/20 History pantoprazole [Protonix] 40 mg PO BID 07/19/19 06/16/20 History gabapentin [Neurontin] 600 mg PO BID 03/19/20 06/16/20 History diphenhydramine HCl [Benadryl] 25 mg PO Q6 PRN #15 cap 03/23/20 06/16/20 Rx cetirizine [Zyrtec] 10 mg PO QAM 04/05/20 06/16/20 History warfarin [Coumadin] 6 - 10 mg PO HS 04/05/20 06/16/20 History Probiotic 1 cap PO TID 06/16/20 06/16/20 History ferrous sulfate 220 mg PO DAILY 06/16/20 06/16/20 History hydromorphone [Dilaudid] 1 mg PO .DAILY @ LUNCH PRN 06/16/20 06/16/20 History torsemide 60 mg PO DAILY 06/16/20 06/16/20 History Family History Pt denies known family history of psychiatric conditions. Admits to a niece with substance abuse (methamphetamine). Substance Abuse History Pt denies tobacco use. Admits to consuming 2-3 beers per day, having attended a rehab in [place] in 2008. Pt denies use of other illicit substances. Personal History Living Arrangements: Home (lives in [place], originally born in [place] ) Marital Status: (previously for 33 years) Number Of Children: 2 - both reportedly reside in [place] Beliefs That Will Affect Care: Buddhist History of Legal Problems: Denies Psychological Trauma History Comment: Denies Patient History Medical History Anemia, iron deficiency Ascites Cirrhosis CKD (chronic kidney disease) stage 3, GFR 30-59 ml/min Depression Gastric peptic ulcer Hypothyroidism Neuropathy of both feet On anticoagulant therapy warfarin daily Paroxysmal A-fib Surgical History History of arthrodesis left leg History of arthroplasty of right shoulder unable to lift arm after sx History of arthroscopy of left knee x2 History of arthroscopy of right knee x7 History of cardiac cath 2012--no stents History of cholecystectomy History of colonoscopy History of esophagogastroduodenoscopy (EGD) History of gastric bypass History of open reduction and internal fixation (ORIF) procedure left tib/fib fx--hardware in place History of surgery on extremity 2017--right leg hardware in place per pt a "fusion of her leg" History of tooth extraction all teeth removed History of total right knee replacement (TKR) 2006 Family History Sister Breast cancer Mother Hypertension Diabetes Other No family history of adverse response to anesthesia Social History Smoking Status: Never smoker Second Hand Exposure: No; Do You Dip or Chew Tobacco: No; Tobacco Cessation Education Requested by Patient: No Hx Alcohol Use: Yes Alcohol type: beer Alcohol Intake Frequency: 4 or More x per/Week Alcohol Intake Frequency Comment: daily, 2-3 beers Hx Substance Use: No Preferred Language: Syriac Communication Ability: Effective 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 Beliefs That Will Affect Care: Buddhist Current Living Situation: Alone Other Information That Helps Us Care for You: No Feels Safe at Home: Yes Safety Concerns: Feels Safe At This Time Physical Exam Psychiatric: Orientation: alert and oriented x 3; + uncooperative (limited cooperation due to nausea and vomiting) Apperance: appropriately dressed and + disheveled; + did not appear stated age (appearing older than stated age) Eye Contact: + fair eye contact Motor Behavior: no abnormal motor movements (observed while laying in bed) Speech: normal rate/rhythm/volume of speech (brief responses to questions) Affect: + depressed affect and + blunted affect Mood: + depressed mood Thought Process: goal directed thought process Thought Content: reality based without delusions Suicidal Thoughts: denies suicidal thoughts Homicidal Thoughts: denies homicidal thoughts Cognition: attention grossly intact and language grossly intact Estimated Intelligence: consistent with education level Insight: + fair insight Judgement: + fair judgement Vital Signs (Past 24 Hours): Last Vital Signs Temp 36.6 C 06/20/20 07:12 Pulse 92 H 06/20/20 07:12 Resp 20 06/20/20 07:12 BP 114/71 06/20/20 07:12 Pulse Ox 97 06/20/20 07:12 Review of Systems Constitutional: reports weakness, fatigue Cardiovascular: denied Respiratory: denied Gastrointestinal: reports nausea, episodic vomiting Neurological: denied Psychiatric: denies symptoms other than stated above Total of at least 10 systems reviewed, pertinent positives as above and in HPI. Results & Data (PSY) Medications Administered Acetaminophen (Acetaminophen 500 Mg Tab) 500 mg PO Q4H PRN PRN Reason: pain Stop: 07/19/20 10:07 Last Admin: 06/19/20 10:52 Dose: 500 mg Documented by: [id number] Cyanocobalamin (Cyanocobalamin 500 Mcg Tablet (Vitamin B-12)) 1,000 mcg PO [facility] Stop: 07/17/20 08:59 Last Admin: 06/20/20 08:13 Dose: 1,000 mcg Documented by: [id number] Admin: 06/19/20 08:00 Dose: 1,000 mcg Documented by: [id number] Admin: 06/18/20 08:03 Dose: 1,000 mcg Documented by: [id number] Admin: 06/17/20 07:58 Dose: 1,000 mcg Documented by: [id number] Duloxetine HCl (Duloxetine Hcl 60 Mg Cap) 60 mg PO [facility] Stop: 07/17/20 08:59 Last Admin: 06/20/20 08:14 Dose: 60 mg Documented by: [id number] Admin: 06/19/20 07:59 Dose: 60 mg Documented by: [id number] Admin: 06/18/20 08:07 Dose: 60 mg Documented by: [id number] Admin: 06/17/20 07:56 Dose: 60 mg Documented by: [id number] Folic Acid (Folic Acid 1 Mg Tab) [facility] Stop: 07/16/20 20:14 Last Admin: 06/20/20 08:13 Dose: 1 mg Documented by: [id number] Admin: 06/19/20 07:59 Dose: 1 mg Documented by: [id number] Admin: 06/18/20 08:03 Dose: 1 mg Documented by: [id number] Admin: 06/17/20 07:56 Dose: 1 mg Documented by: [id number] Admin: 06/16/20 20:44 Dose: 1 mg Documented by: [id number] Hydromorphone HCl (Hydromorphone Hcl 2 Mg Tab) 2 mg PO BID PRN PRN Reason: Pain Stop: 06/30/20 19:48 Last Admin: 06/19/20 22:18 Dose: 2 mg Documented by: [id number] Admin: 06/18/20 19:46 Dose: 2 mg Documented by: [id number] Admin: 06/17/20 09:02 Dose: 2 mg Documented by: [id number] Admin: 06/16/20 22:31 Dose: 2 mg Documented by: [id number] Daptomycin 300 mg/ Syringe 6 mls @ 3 mls/min IV Q24H [facility]ACQUELYN; Protocol Stop: 06/24/20 13:59 Last Admin: 06/19/20 15:58 Dose: 3 mls/min Documented by: [id number] Admin: 06/18/20 15:46 Dose: 3 mls/min Documented by: [id number] Admin: 06/17/20 14:23 Dose: 3 mls/min Documented by: [id number] Aztreonam 1,000 mg/ Dextrose 60 mls @ 60 mls/hr IV Q8H JACQUELYN; Protocol Stop: 06/27/20 19:59 Last Infusion: 06/20/20 04:49 Dose: 0 mls/hr Documented by: [id number] Admin: 06/20/20 03:48 Dose: 60 mls/hr Documented by: [id number] Infusion: 06/19/20 21:25 Dose: 0 mls/hr Documented by: [id number] Admin: 06/19/20 20:07 Dose: 60 mls/hr Documented by: [id number] Infusion: 06/19/20 13:35 Dose: 0 mls/hr Documented by: [id number] Admin: 06/19/20 12:39 Dose: 60 mls/hr Documented by: [id number] Infusion: 06/19/20 04:45 Dose: 0 mls/hr Documented by: [id number] Admin: 06/19/20 03:37 Dose: 60 mls/hr Documented by: [id number] Infusion: 06/18/20 20:49 Dose: 0 mls/hr Documented by: [id number] Admin: 06/18/20 19:45 Dose: 60 mls/hr Documented by: [id number] Infusion: 06/18/20 13:54 Dose: 0 mls/hr Documented by: [id number] Admin: 06/18/20 12:25 Dose: 60 mls/hr Documented by: [id number] Infusion: 06/18/20 04:53 Dose: 0 mls/hr Documented by: [id number] Admin: 06/18/20 03:29 Dose: 60 mls/hr Documented by: [id number] Infusion: 06/17/20 21:13 Dose: 0 mls/hr Documented by: [id number] Admin: 06/17/20 20:15 Dose: 60 mls/hr Documented by: [id number] Promethazine HCl 6.25 mg/ (Sodium Chloride) 50.25 mls @ 201 mls/hr IV Q6H PRN PRN Reason: Nausea And Vomiting Stop: 07/18/20 09:04 Last Infusion: 06/18/20 10:28 Dose: 0 mls/hr Documented by: [id number] Admin: 06/18/20 10:06 Dose: 201 mls/hr Documented by: [id number] Levothyroxine Sodium (Levothyroxine Sodium 75 Mcg Tablet) 75 mcg PO DAILYBB [facility] Stop: 07/17/20 06:29 Last Admin: 06/20/20 05:31 Dose: 75 mcg Documented by: [id number] Admin: 06/19/20 05:31 Dose: 75 mcg Documented by: [id number] Admin: 06/18/20 05:55 Dose: 75 mcg Documented by: [id number] Admin: 06/17/20 06:03 Dose: 75 mcg Documented by: [id number] Magnesium Oxide (Magnesium Oxide 400 Mg Tab) 400 mg PO BID [facility] Stop: 07/16/20 20:59 Last Admin: 06/20/20 08:13 Dose: 400 mg Documented by: [id number] Admin: 06/19/20 20:14 Dose: 400 mg Documented by: [id number] Admin: 06/19/20 08:00 Dose: 400 mg Documented by: [id number] Admin: 06/18/20 19:48 Dose: 400 mg Documented by: [id number] Admin: 06/18/20 08:04 Dose: 400 mg Documented by: [id number] Admin: 06/17/20 20:08 Dose: 400 mg Documented by: [id number] Admin: 06/17/20 07:53 Dose: 400 mg Documented by: [id number] Admin: 06/16/20 20:44 Dose: 400 mg Documented by: [id number] Multivitamins (Multivitamin Tab) 1 tab PO QAM [facility] Stop: 07/17/20 08:59 Last Admin: 06/20/20 08:13 Dose: 1 tab Documented by: [id number] Admin: 06/19/20 08:00 Dose: 1 tab Documented by: [id number] Admin: 06/18/20 08:03 Dose: 1 tab Documented by: [id number] Admin: 06/17/20 07:58 Dose: 1 tab Documented by: [id number] Pantoprazole Sodium (Pantoprazole 40 Mg Tab) 40 mg PO BID [facility] Stop: 07/16/20 20:59 Last Admin: 06/20/20 08:13 Dose: 40 mg Documented by: [id number] Admin: 06/19/20 20:13 Dose: 40 mg Documented by: [id number] Admin: 06/19/20 07:59 Dose: 40 mg Documented by: [id number] Admin: 06/18/20 19:48 Dose: 40 mg Documented by: [id number] Admin: 06/18/20 08:04 Dose: 40 mg Documented by: [id number] Admin: 06/17/20 20:08 Dose: 40 mg Documented by: [id number] Admin: 06/17/20 07:38 Dose: 40 mg Documented by: [id number] Admin: 06/16/20 20:44 Dose: 40 mg Documented by: [id number] Polyethylene Glycol (Polyethylene (Miralax) 17 Gm Pack) 17 gm PO BID17 [facility] Stop: 07/17/20 08:59 Last Admin: 06/20/20 08:14 Dose: 17 gm Documented by: [id number] Admin: 06/19/20 17:02 Dose: Not Given Documented by: [id number] Admin: 06/19/20 08:00 Dose: Not Given Documented by: [id number] Admin: 06/18/20 17:09 Dose: 17 gm Documented by: [id number] Admin: 06/18/20 08:05 Dose: 17 gm Documented by: [id number] Admin: 06/17/20 16:32 Dose: 17 gm Documented by: [id number] Admin: 06/17/20 07:59 Dose: 17 gm Documented by: [id number] Potassium Chloride (Potassium Chloride 20 Meq Tabcr) 40 meq PO BID [facility] Stop: 07/19/20 09:14 Last Admin: 06/20/20 08:13 Dose: 40 meq Documented by: [id number] Admin: 06/19/20 20:13 Dose: 40 meq Documented by: [id number] Admin: 06/19/20 09:33 Dose: 40 meq Documented by: [id number] Rifaximin (Rifaximin 550 Mg Tablet) 550 mg PO BID [facility] Stop: 07/16/20 20:59 Last Admin: 06/20/20 08:12 Dose: 550 mg Documented by: [id number] Admin: 06/19/20 20:13 Dose: 550 mg Documented by: [id number] Admin: 06/19/20 07:59 Dose: 550 mg Documented by: [id number] Admin: 06/18/20 19:48 Dose: 550 mg Documented by: [id number] Admin: 06/18/20 08:03 Dose: 550 mg Documented by: [id number] Admin: 06/17/20 20:08 Dose: 550 mg Documented by: [id number] Admin: 06/17/20 07:58 Dose: 550 mg Documented by: [id number] Admin: 06/16/20 20:44 Dose: 550 mg Documented by: [id number] Thiamine HCl (Thiamine Hcl 100 Mg Tab) 100 mg PO QAM JACQU[facility]N Stop: 07/16/20 20:14 Last Admin: 06/20/20 08:14 Dose: 100 mg Documented by: [id number] Admin: 06/19/20 08:00 Dose: 100 mg Documented by: [id number] Admin: 06/18/20 08:03 Dose: 100 mg Documented by: [id number] Admin: 06/17/20 07:55 Dose: 100 mg Documented by: [id number] Admin: 06/16/20 20:44 Dose: 100 mg Documented by: [id number] Vitamin D (Cholecalciferol 1,000 Units 25 Mcg Tab) 4,000 units PO DAILY [facility] Stop: 07/17/20 08:59 Last Admin: 06/20/20 08:13 Dose: 4,000 units Documented by: [id number] Admin: 06/19/20 08:00 Dose: 4,000 units Documented by: [id number] Admin: 06/18/20 08:04 Dose: 4,000 units Documented by: [id number] Admin: 06/17/20 07:55 Dose: 4,000 units Documented by: [id number] Zinc Sulfate (Zinc Sulfate 220 Mg Capsule) 220 mg PO QAM [facility]ACQU[facility]N Stop: 07/17/20 08:59 Last Admin: 06/20/20 08:14 Dose: 220 mg Documented by: [id number] Admin: 06/19/20 07:59 Dose: 220 mg Documented by: [id number] Admin: 06/18/20 08:05 Dose: 220 mg Documented by: [id number] Admin: 06/17/20 07:59 Dose: 220 mg Documented by: [id number] Coding Level of Care Code 29017 U Intl Hosp Care Lvl 1
[2020-06-20] MEDS: PROMETHAZINE HCL 6.25 MG in SODIUM CHLORIDE 0.9% 50 ML IV PRN (09:49)
--- NOTE | 2020-06-20 13:02 | Cardiology Consultation ---
Date of Consultation June 20, 2020 Assessment & Plan (1) Paroxysmal A-fib: 60-year-old female with history per review of records is notable for paroxysmal atrial fibrillation dating back to 2016. Patient on chronic anticoagulation with warfarin. Chads vasc 2 score of 1 Currently patient's multiple underlying medical problems and bleeding complications outweigh any potential benefits for anticoagulation at this time not reinitiate unless another indication present Would suggest patient would benefit from low-dose beta-elizabet for atrial arrhythmias and hepatic cirrhosis (2) Falls: (3) Traumatic hematoma of knee: (4) Decompensated hepatic cirrhosis: History of Present Illness Reason for Consultation: Assess anticoagulation for paroxysmal atrial fibrillation Requesting Physician: Dr. Andre Attending Physician: Rommel Hanson DO History of Present Illness Patient is a 60-year-old female with complex underlying constellation of issues as noted below who was admitted with decompensated chronic hepatic cirrhosis with encephalopathy multiple falls and injuries. INR was supratherapeutic on presentation and patient sustained multiple ecchymotic injuries Patient is referred regarding anticoagulation issues Since admission patient's had short salvos of nonsustained atrial tachycardia's likely A. fib flutter Current EKG normal sinus rhythm Echocardiogram 2014 without valvular heart disease of significance Allergies Allergy/AdvReac Type Severity Reaction Status Date / Time cefaclor Allergy Intermediate Swelling Verified 06/16/20 16:22 oxycodone Allergy Intermediate HIVES Verified 06/16/20 16:22 amoxicillin Allergy Mild Nausea Verified 06/16/20 16:22 ceftriaxone [From Rocephin] Allergy Rash Verified 06/16/20 16:22 metronidazole [From Flagyl] Allergy Rash Verified 06/16/20 16:22 Home Medications Home Medications Medication Instructions Recorded Confirmed Type cyanocobalamin (vitamin B-12) 1,000 mcg PO QAM 08/22/18 06/16/20 History [Vitamin B-12] hydromorphone [Dilaudid] 2 mg PO BID PRN 08/22/18 06/16/20 History levothyroxine [Synthroid] 75 mcg PO QAM 08/22/18 06/16/20 History magnesium oxide 400 mg PO BID 08/22/18 06/16/20 History multivitamin 1 tab PO QAM 08/22/18 06/16/20 History ondansetron HCl [Zofran] 4 mg PO Q8 PRN 08/22/18 06/16/20 History sucralfate [Carafate] 1 g PO BID PRN 08/22/18 06/16/20 History zinc sulfate 220 mg PO QAM 08/22/18 06/16/20 History cholecalciferol (vitamin D3) 4,000 unit PO DAILY 10/03/18 06/16/20 History [Vitamin D3] rifaximin [Xifaxan] 550 mg PO BID 10/03/18 06/16/20 History duloxetine [Cymbalta] 60 mg PO QAM 07/19/19 06/16/20 History lactulose [Generlac] 45 ml PO DAILY PRN 07/19/19 06/16/20 History pantoprazole [Protonix] 40 mg PO BID 07/19/19 06/16/20 History gabapentin [Neurontin] 600 mg PO BID 03/19/20 06/16/20 History diphenhydramine HCl [Benadryl] 25 mg PO Q6 PRN #15 cap 03/23/20 06/16/20 Rx cetirizine [Zyrtec] 10 mg PO QAM 04/05/20 06/16/20 History warfarin [Coumadin] 6 - 10 mg PO HS 04/05/20 06/16/20 History Probiotic 1 cap PO TID 06/16/20 06/16/20 History ferrous sulfate 220 mg PO DAILY 06/16/20 06/16/20 History hydromorphone [Dilaudid] 1 mg PO .DAILY @ LUNCH PRN 06/16/20 06/16/20 History torsemide 60 mg PO DAILY 06/16/20 06/16/20 History Patient History Medical History Anemia, iron deficiency Ascites Cirrhosis CKD (chronic kidney disease) stage 3, GFR 30-59 ml/min Depression Gastric peptic ulcer Hypothyroidism Neuropathy of both feet On anticoagulant therapy warfarin daily Paroxysmal A-fib Surgical History History of arthrodesis left leg History of arthroplasty of right shoulder unable to lift arm after sx History of arthroscopy of left knee x2 History of arthroscopy of right knee x7 History of cardiac cath 2011--no stents History of cholecystectomy History of colonoscopy History of esophagogastroduodenoscopy (EGD) History of gastric bypass History of open reduction and internal fixation (ORIF) procedure left tib/fib fx--hardware in place History of surgery on extremity 2017--right leg hardware in place per pt a "fusion of her leg" History of tooth extraction all teeth removed History of total right knee replacement (TKR) 2006 Family History Sister Breast cancer Mother Hypertension Diabetes Other No family history of adverse response to anesthesia Social History Smoking Status: Never smoker Second Hand Exposure: No; Do You Dip or Chew Tobacco: No; Tobacco Cessation Education Requested by Patient: No Hx Alcohol Use: Yes Alcohol type: beer Alcohol Intake Frequency: 4 or More x per/Week Alcohol Intake Frequency Comment: daily, 2-3 beers Hx Substance Use: No Preferred Language: Ukrainian Communication Ability: Effective 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 Beliefs That Will Affect Care: L[employer] Day Current Living Situation: Alone Other Information That Helps Us Care for You: No Feels Safe at Home: Yes Safety Concerns: Feels Safe At This Time Physical Exam Constitutional: + ill appearing Eyes: Left eye partially closed ENMT: Facial ecchymoses present Neck: trachea midline, no thyromegaly Respiratory: Auscultation: + diminished lung sounds Cardiovascular: Rate/Rhythm: regular rate and regular rhythm Heart Sounds: normal S1 and normal S2; no murmur Skin: + ecchymosis (Multiple areas diffuse) Results & Data ([facility]) Vital Signs (Past 12 Hours) Vital Signs Temp Pulse Resp BP BP Pulse Ox 06/20/20 11:18 36.7 C 91 H 20 124/79 97 06/20/20 07:12 36.6 C 92 H 20 114/71 97 06/20/20 03:18 36.9 C 92 H 18 121/75 96 Laboratory Results Laboratory Results - last 24 hr 06/16/20 06/20/20 06/20/20 Unknown 06:34 06:34 WBC 4.35 L RBC 2.14 L Hgb 6.3 L* Hct 18.8 L* MCV 87.9 MCH 29.4 MCHC 33.5 RDW Std Deviation 55.9 H RDW Coeff of Jake 17.7 H Plt Count 106 L MPV 9.4 Immature Gran % (Auto) 0.7 Neut % (Auto) 31.5 Lymph % (Auto) 48.7 [place] % (Auto) 13.3 Eos % (Auto) 5.1 Baso % (Auto) 0.7 Neut # (Auto) 1.37 L Lymph # (Auto) 2.12 [place] # (Auto) 0.58 Eos # (Auto) 0.22 Baso # (Auto) 0.03 Immature Gran # (Auto) 0.03 H Smudge Cells Present PT 14.7 H INR 1.4 H Sodium Potassium Chloride Carbon Dioxide Anion Gap BUN Creatinine Est Cr Clr Drug Dosing Est GFR ( Amer) Est GFR (Non-Af Amer) BUN/Creatinine Ratio Glucose Calcium U Codeine Confrm GC/MS NEGATIVE Ur Morphine (GC/MS) NEGATIVE Ur Hydrocodone (GC/MS) NEGATIVE Ur Norhydrocodone NEGATIVE Ur Noroxycodone NEGATIVE Urine Oxycodone (GC/MS) NEGATIVE U Oxymorphone GC/MS NEGATIVE Ur Hydromorphone (GC/MS) 4480 H Drug Screen Comment SEE NOTE 06/20/20 06/20/20 06/20/20 06:34 06:34 08:08 WBC RBC Hgb Cancelled 7.2 L Hct Cancelled 21.4 L MCV MCH MCHC RDW Std Deviation RDW Coeff of Jake Plt Count MPV Immature Gran % (Auto) Neut % (Auto) Lymph % (Auto) [place] % (Auto) Eos % (Auto) Baso % (Auto) Neut # (Auto) Lymph # (Auto) [place] # (Auto) Eos # (Auto) Baso # (Auto) Immature Gran # (Auto) Smudge Cells PT INR Sodium 137 Potassium 3.9 Chloride 103 Carbon Dioxide 29 Anion Gap 5.0 BUN 18 Creatinine 1.23 H Est Cr Clr Drug Dosing 55.8 Est GFR ( Amer) 56.0 Est GFR (Non-Af Amer) 48.3 BUN/Creatinine Ratio 14.5 Glucose 72 Calcium 8.3 L U Codeine Confrm GC/MS Ur Morphine (GC/MS) Ur Hydrocodone (GC/MS) Ur Norhydrocodone Ur Noroxycodone Urine Oxycodone (GC/MS) U Oxymorphone GC/MS Ur Hydromorphone (GC/MS) Drug Screen Comment
--- NOTE | 2020-06-20 15:01 | Nephrology Progress Note ---
Date of Service June 20, 2020 Assessment & Plan (1) Acute on chronic renal failure: Baseline creatinine 1.3 in late May; I doubt she was on any diuretics at that time though had been rx'd torsemide 20 mg daily for months (based on wts and chemistries Dec-June 2020). Torsemide dose increased to 60 mg daily on 06/12. Pt presented 06/16 with creatinine 2.2. Creatinine today down to 1.2. -Continue conservative management and monitoring with daily BMP. -Monitor input output and avoid nephrotoxins. (2) Hypokalemia: Presented with K 2.9 on 06/16, up to 3.3 on 06/17. K3.9 today -Continue K 40 mEq bid granules to be given with minimal fluid -Monitor and replace as needed. (3) Decompensated hepatic cirrhosis: with severe volume overload >Aztreonam (dosed in 100 mL D5W) -We will give Lasix 80 mg once today and see the urine output. Goal is to establish diuretic dosing. Admission and Anticipated Discharge Date Admission Date: June 16, 2020 Subjective Patient is complaining of nausea today. She vomited once in the morning. She is diuresing well. Creatinine stable at 1.2. No shortness of breath. Review of Systems Review of Systems: All systems reviewed & are unremarkable except as noted in HPI & below Physical Exam Physical Exam: General exam: Appears comfortable, no acute distress HEENT: Pupils are equal and reactive to light Neck: No JVD, neck is supple trachea is midline Respiratory system: Clear breath sounds bilaterally. Gastrointestinal: Abdomen is soft, non distended, non tender, bowel sounds are present CVS: Regular rate and rhythm. No murmurs, rubs or gallops Musculoskeletal: No joint or muscle tenderness Extremities: Bilateral edema, left leg is more swollen and has bruises Neuro: Oriented, no tremors, no focal neurological deficits Skin: No rashes, bruises on the head Results & Data ([facility]) Vital Signs (Past 12 Hours) Vital Signs Temp Pulse Resp BP BP Pulse Ox 06/20/20 11:18 36.7 C 91 H 20 124/79 97 06/20/20 07:12 36.6 C 92 H 20 114/71 97 06/20/20 03:18 36.9 C 92 H 18 121/75 96 Laboratory Results 06/20/20 06:34 06/20/20 06:34 WBC 4.35 L RBC 2.14 L MCV 87.9 MCH 29.4 MCHC 33.5 RDW Std Deviation 55.9 H RDW Coeff of Jake 17.7 H Plt Count 106 L MPV 9.4 (1) Acute on chronic renal failure Acute renal failure type: unspecified Chronic kidney disease stage: stage 3 (moderate) Qualified Code(s): N17.9 - Acute kidney failure, unspecified; N18.3 - Chronic kidney disease, stage 3 (moderate)
[2020-06-20] MEDS ORDERED: FUROSEMIDE 80 MG in SYRINGE 0 ML IV ONE (15:30)
[2020-06-20] MEDS ORDERED: SODIUM CHLORIDE 0.9% 250 ML IV PRN (18:26)
[2020-06-20] MEDS ORDERED: METOPROLOL TARTRATE 1 MG/ML VIAL IV STA (18:28)
[2020-06-20] MEDS: HYDROmorphone HCL 2 MG TAB PO PRN (23:29)
[2020-06-21] MEDS: AZTREONAM 1,000 MG in DEXTROSE 5% 50 ML IV SCH (03:30)
[2020-06-21] MEDS: LEVOTHYROXINE SODIUM 75 MCG TABLET PO SCH (05:45)
[2020-06-21 06:26] LABS: Hematocrit (blood only) 23.3 % (37-47); Hemoglobin 7.7 g/dL (12.0-16.0); Mean Corpuscular Hemoglobin 29.5 pg (25-34); Mean Corpuscular Volume 89.3 fL (80-100); Mean Platelet Volume 9.3 fL (7.4-10.4); Platelet Count 119 K/uL (130-400); RDW Coefficient of Variation 18.1 % (11.5-14.5); RDW Standard Deviation 56.2 fL (36.4-46.3); Red Blood Count 2.61 M/uL (4.2-5.4); White Blood Count 4.38 K/uL (4.8-10.8)
[2020-06-21 06:36] LABS: INR 1.3 (0.9-1.1); Prothrombin Time 13.8 Seconds (9.0-12.0)
[2020-06-21 07:06] LABS: BUN Creatinine Ratio 14.3 (10-20); Est GFR (African American) 70.2; Est GFR (Non-African American) 60.6
--- NOTE | 2020-06-21 07:33 | Hospitalist Progress Note ---
Date of Service June 21, 2020 Assessment & Plan (1) Falls: 60-year-old female with history of Davis cirrhosis, atrial fibrillation on Coumadin, CKD stage III, Gastric bypass with anastomotic ulcer, chronic pain syndrome, depression, Presenting with multiple falls from home. In summary, patient lives alone and was admitted for multiple falls found to be multifactorial secondary hepatic encephalopathy, alcohol intoxication, Dilaudid use, symptomatic anemia due to acute blood loss from left lower leg hematoma. Hepatic encephalopathy resolved fairly quickly, back to baseline mental status. Clinically improving overall. Septic work-up revealing left lower extremity cellulitis and UTI. Patient responding well to IV antibiotics. Also not showing signs of acute alcohol withdrawal or DTs while on protocol. Narcotics discontinued. Anemia felt to be secondary to acute blood loss secondary to left lower extremity hematoma in the setting of supratherapeutic INR. Given 4 units of packed RBCs, hemoglobin stable so far. INR also reversed with vitamin K IV and FFP. Orthopedic service attempted to drain the left knee hematoma, but was not successful. Advised ice packing and conservative measures. For volume overload in the setting of liver cirrhosis, nephrology consulted given acute renal failure. Lasix IV given, with improvement of volume status and improvement of creatinine as well. Hb 6.3, repeat 7.2, went into AFIB c RVR, given Metoprolol and Cards saw her, Now in NSR/AFIB intermit, Got 1 unit of PRBCs yesterday 06/20 Falls secondary to metabolic encephalopathy, multifactorial: Hepatic encephalopathy Ammonia level admission 72 Encephalopathy resolved , oriented x3, answers questions appropriately Patient declining lactulose Continue rifaximin, MiraLAX Alcohol intoxication No signs of overt withdrawal since admission Continue alcohol withdrawal protocol including gabapentin Gabapentin renally dosed Dilaudid, gabapentin, Cymbalta use Try to limit Dilaudid use Monitor closely Anemia, symptomatic, secondary to iron deficiency Likely acute blood loss secondary to left lower extremity hematoma, with cellulitis Supratherapeutic INR on admission, reversed with vitamin K and FFP, INR now 1.5 Hemoglobin 7.2 on admission Status post 5 units of packed RBCs transfused Transfuse when Hb<=7 CT Left lower ext: 1. No acute fracture or dislocation. 2. Postsurgical changes as above. No evidence of hardware complication. 3. Diffuse subcutaneous edema suggests cellulitis, venous stasis or lymphedema. 4. Partially imaged probable hematoma of the prepatellar tissues measures over 6 cm. 5. Partially imaged joint effusion of the knee. Status post attempted left knee drainage by orthopedic service 06/18/2020, only 4 cc of dark blood obtained, with no signs of infection and consistent with venous hematoma Recommend gentle PT, knee immobilizer, full weightbearing in extension Off daptomycin Klebsiella UTI Urine culture: Klebsiella Continue aztreonam day #6 Decompensated liver cirrhosis DAVIS cirrhosis Positive volume overload in the setting of acute renal failure and CKD stage III GI and nephrology on case s/p Lasix 40 mg IV with albumin ordered 3 times daily Patient diuresed adequately, volume overload improved Nephrology recommends to DC Lasix Usual torsemide on hold Acute renal failure, CKD III Nephrology on board Atrial fibrillation on Coumadin Supratherapeutic INR 5 on admission Held Coumadin, given vitamin K K 10 mg IV and FFP Currently in sinus rhythm Chads Vasc score 1 Based on patient's presentation, not a good candidate for long-term anticoagulation cardiology regarding discontinuation of anticoagulation for this patient Gastric bypass, status post anastomotic ulcer No signs of GI bleed at this point per GI Continue Protonix Monitor Chronic pain syndrome Patient may be misusing Dilaudid at home will need to be weaned off Dilaudid Depression Per admitting service patient may be having progression of depression symptoms secondary to being alone at home recently secondary to the pandemic Will consult psychiatry service DVT prophylaxis Anticoagulation contraindicated secondary to acute blood loss, hematoma Status contraindicated secondary to cellulitis versus hematoma Will encourage frequent ambulation when medically stable Disposition Lives at home, but patient has been having multiple falls, presents with weakness and encephalopathy PT and OT evaluation Most likely will need to transition to either rehab or longterm facility She is also interested in transitioning to alcohol rehab after physical rehab stay DC 1-2 days when Hb stable and HR stable labs checked ROS-No Headache, No Visual Changes, No Nausea, No Vomiting, No Fever, No Chills, No Neck Pain or Stiffness, No Chest Pain, No Palpitations, No SOB, No THURMAN, No Cough, No Sputum, No Wheezing, No Abdominal Pain, No Diarrhea, No Hematemesis, No Hemoptysis, No Unexpected Weight Loss, No Flank pain, No Melena, No Hematochezia, No Frequency, No Urgency, No Burning, No Hematuria, No Rashes, No Diaphoresis. Appetite is Normal Physical Exam Gen-AAO x 3, NAD, Afebrile Head-Mult Facial and body bruises, EOMI, PERRLA, Anicteric Sclera, No Posterior Pharyngeal Erythema Neck-Supple, No JVD, No Thyromegaly, No Masses, No LAD, No Bruits Lungs-Clear to Auscultation Bilaterally, No Rales, No Rhonchi, No Wheezing, No Crepitus Chest-No S4, +S1, +S2, No S3, No Murmurs, No Rubs, No Gallops, No Ectopy Abdomen-Soft, Bowel Sounds Present, Non Tender, Non Distended, No Hepatomegaly, No Splenomegaly, No Palpable Masses, No Rebound, No Rigidity, No Guarding Musculoskeletal-Full Range of Motion Bilaterally, No CVAT Extremities-No Cyanosis, No Clubbing, No Edema Nuero-Cranial Nerves II-XII grossly intact, Motor WNL, DTRs WNL, Strength WNL, Non Focal Psych-Normal Mood Admission and Anticipated Discharge Date Admission Date: June 16, 2020 Results & Data Results & Data ([facility]) Vital Signs (Past 12 Hours) Vital Signs Temp Pulse Pulse Resp BP BP Pulse Ox 06/21/20 07:26 36.7 C 79 18 131/84 100 06/21/20 03:48 36.6 C 87 18 114/66 98 06/21/20 00:59 81 06/21/20 00:33 36.8 C 86 20 123/67 100 06/20/20 23:11 37.1 C 84 18 122/81 100 06/20/20 23:04 37.1 C 84 18 122/81 100 06/20/20 22:04 36.8 C 78 20 147/92 H 99 06/20/20 21:34 37.2 C 80 18 125/84 97 06/20/20 21:19 37.3 C 87 18 124/76 97 06/20/20 21:00 36.8 C 84 18 121/79 96
[2020-06-21] MEDS: RIFAXIMIN 550 MG TABLET PO SCH ×2 (08:06→20:02)
[2020-06-21] MEDS: PANTOprazole 40 MG TAB PO SCH ×2 (08:06→20:02)
[2020-06-21] MEDS: CHOLECALCIFEROL 1,000 UNITS 25 MCG TAB PO SCH (08:07)
[2020-06-21] MEDS: MAGNESIUM OXIDE 400 MG TAB PO SCH ×2 (08:07→20:02)
[2020-06-21] MEDS: POTASSIUM CHLORIDE 20 MEQ TABCR PO SCH ×2 (08:08→20:02)
[2020-06-21] MEDS: MULTIVITAMIN TAB PO SCH (08:09)
[2020-06-21] MEDS: ZINC SULFATE 220 MG CAPSULE PO SCH (08:09)
[2020-06-21] MEDS: DULOXETINE HCL 60 MG CAP PO SCH (08:09)
[2020-06-21] MEDS: FOLIC ACID 1 MG TAB PO SCH (08:09)
[2020-06-21] MEDS: GABAPENTIN 300 MG CAP PO SCH ×2 (08:10→20:03)
[2020-06-21] MEDS: THIAMINE HCL 100 MG TAB PO SCH (08:10)
[2020-06-21] MEDS: CYANOCOBALAMIN 500 MCG TABLET (VITAMIN B-12) PO SCH (08:10)
[2020-06-21] MEDS: HYDROmorphone HCL 2 MG TAB PO PRN ×2 (09:50→21:55)
[2020-06-21] MEDS: FUROSEMIDE 40 MG in SYRINGE 0 ML IV SCH ×2 (09:51→17:30)
[2020-06-21] MEDS: POLYETHYLENE (MIRALAX) 17 GM PACK PO SCH ×2 (09:52→17:30)
--- NOTE | 2020-06-21 10:23 | Nephrology Progress Note ---
Date of Service June 21, 2020 Assessment & Plan (1) Acute on chronic renal failure: Baseline creatinine 1.3 in late May; I doubt she was on any diuretics at that time though had been rx'd torsemide 20 mg daily for months (based on wts and chemistries Dec-June 2020). Torsemide dose increased to 60 mg daily on 06/12. Pt presented 06/16 with creatinine 2.2. Creatinine today down to 1. -Continue conservative management and monitoring with daily BMP. -Monitor input output and avoid nephrotoxins. (2) Hypokalemia: Presented with K 2.9 on 06/16, up to 3.3 on 06/17. K3.9 today -Continue K 40 mEq bid granules to be given with minimal fluid -Monitor and replace as needed. (3) Decompensated hepatic cirrhosis: with severe volume overload >Aztreonam (dosed in 100 mL D5W) -We will give Lasix 40 mg IV twice daily Admission and Anticipated Discharge Date Admission Date: June 16, 2020 Subjective She feels better today no nausea or vomiting. She is diuresing well. Leg swelling is subsiding. Review of Systems Review of Systems: All systems reviewed & are unremarkable except as noted in HPI & below Physical Exam Physical Exam: General exam: Appears comfortable, no acute distress HEENT: Pupils are equal and reactive to light Neck: No JVD, neck is supple trachea is midline Respiratory system: Clear breath sounds bilaterally. Gastrointestinal: Abdomen is soft, non distended, non tender, bowel sounds are present CVS: Regular rate and rhythm. No murmurs, rubs or gallops Musculoskeletal: No joint or muscle tenderness Extremities: Non tender, 1+ edema, peripheral pulses are present Neuro: Oriented, no tremors, no focal neurological deficits Skin: No rashes, bruises on the left leg and face Results & Data ([facility]) Vital Signs (Past 12 Hours) Vital Signs Temp Pulse Pulse Resp BP BP Pulse Ox 06/21/20 10:18 92 H 06/21/20 07:26 36.7 C 79 18 131/84 100 06/21/20 03:48 36.6 C 87 18 114/66 98 06/21/20 00:59 81 06/21/20 00:33 36.8 C 86 20 123/67 100 06/20/20 23:11 37.1 C 84 18 122/81 100 06/20/20 23:04 37.1 C 84 18 122/81 100 Laboratory Results 06/21/20 06:15 06/21/20 06:15 WBC 4.38 L RBC 2.61 L MCV 89.3 MCH 29.5 MCHC 33.0 RDW Std Deviation 56.2 H RDW Coeff of Jake 18.1 H Plt Count 119 L MPV 9.3 (1) Acute on chronic renal failure Acute renal failure type: unspecified Chronic kidney disease stage: stage 3 (moderate) Qualified Code(s): N17.9 - Acute kidney failure, unspecified; N18.3 - Chronic kidney disease, stage 3 (moderate)
[2020-06-21] MEDS: cefUROXime axetil 500 MG TAB PO SCH (20:00)
--- NOTE | 2020-06-22 05:23 | Electrocardiogram Report ---
Test Reason : Blood Pressure : / mmHG Vent. Rate : 094 BPM Atrial Rate : 094 BPM P-R Int : 130 ms QRS Dur : 090 ms QT Int : 362 ms P-R-T Axes : 031 034 017 degrees QTc Int : 452 ms Sinus rhythm with Premature supraventricular complexes Otherwise normal ECG When compared with ECG of 19-JUN-2020 09:14, Premature supraventricular complexes are now Present Confirmed by Jose M Kc [id number]) on 06/22/2020 5:23:12 AM Referred By: REFERRED SELF Confirmed By:Jose M Kc
[2020-06-22] MEDS: LEVOTHYROXINE SODIUM 75 MCG TABLET PO SCH (06:11)
--- NOTE | 2020-06-22 07:41 | Hospitalist Progress Note ---
Date of Service June 22, 2020 Assessment & Plan (1) Falls: 60-year-old female with history of Davis cirrhosis, atrial fibrillation on Coumadin, CKD stage III, Gastric bypass with anastomotic ulcer, chronic pain syndrome, depression, Presenting with multiple falls from home. In summary, patient lives alone and was admitted for multiple falls found to be multifactorial secondary hepatic encephalopathy, alcohol intoxication, Dilaudid use, symptomatic anemia due to acute blood loss from left lower leg hematoma. Hepatic encephalopathy resolved fairly quickly, back to baseline mental status. Clinically improving overall. Septic work-up revealing left lower extremity cellulitis and UTI. Patient responding well to IV antibiotics. Also not showing signs of acute alcohol withdrawal or DTs while on protocol. Narcotics discontinued. Anemia felt to be secondary to acute blood loss secondary to left lower extremity hematoma in the setting of supratherapeutic INR. Given 4 units of packed RBCs, hemoglobin stable so far. INR also reversed with vitamin K IV and FFP. Orthopedic service attempted to drain the left knee hematoma, but was not successful. Advised ice packing and conservative measures. For volume overload in the setting of liver cirrhosis, nephrology consulted given acute renal failure. Lasix IV given, with improvement of volume status and improvement of creatinine as well. Hb 6.3, repeat 7.2, went into AFIB c RVR, given Metoprolol and Cards saw her, Now in NSR/AFIB intermit, Got 1 unit of PRBCs yesterday 06/20 Falls secondary to metabolic encephalopathy, multifactorial: Hepatic encephalopathy Ammonia level admission 72 Encephalopathy resolved , oriented x3, answers questions appropriately Patient declining lactulose Continue rifaximin, MiraLAX Alcohol intoxication No signs of overt withdrawal since admission Continue alcohol withdrawal protocol including gabapentin Gabapentin renally dosed Dilaudid, gabapentin, Cymbalta use Try to limit Dilaudid use Monitor closely Anemia, symptomatic, secondary to iron deficiency Likely acute blood loss secondary to left lower extremity hematoma, with cellulitis Supratherapeutic INR on admission, reversed with vitamin K and FFP, INR now 1.5 Hemoglobin 7.2 on admission Status post 5 units of packed RBCs transfused Transfuse when Hb<=7 CT Left lower ext: 1. No acute fracture or dislocation. 2. Postsurgical changes as above. No evidence of hardware complication. 3. Diffuse subcutaneous edema suggests cellulitis, venous stasis or lymphedema. 4. Partially imaged probable hematoma of the prepatellar tissues measures over 6 cm. 5. Partially imaged joint effusion of the knee. Status post attempted left knee drainage by orthopedic service 06/18/2020, only 4 cc of dark blood obtained, with no signs of infection and consistent with venous hematoma Recommend gentle PT, knee immobilizer, full weightbearing in extension Off daptomycin Klebsiella UTI Urine culture: Klebsiella Off aztreonam, On Ceftin Decompensated liver cirrhosis DAVIS cirrhosis Positive volume overload in the setting of acute renal failure and CKD stage III GI and nephrology on case s/p Lasix 40 mg IV with albumin ordered 3 times daily Patient diuresed adequately, volume overload improved Nephrology recommended to DC Lasix Usual torsemide on hold Acute renal failure, CKD III Nephrology on board Atrial fibrillation on Coumadin Supratherapeutic INR 5 on admission Held Coumadin, given vitamin K K 10 mg IV and FFP Currently in sinus rhythm Chads Vasc score 1 Based on patient's presentation, not a good candidate for long-term anticoagulation Gastric bypass, status post anastomotic ulcer No signs of GI bleed at this point per GI Continue Protonix Monitor Chronic pain syndrome Patient may be misusing Dilaudid at home will need to be weaned off Dilaudid Depression Per admitting service patient may be having progression of depression symptoms secondary to being alone at home recently secondary to the pandemic Will consult psychiatry service DVT prophylaxis Anticoagulation contraindicated secondary to acute blood loss, hematoma Status contraindicated secondary to cellulitis versus hematoma Will encourage frequent ambulation when medically stable Disposition Lives at home, but patient has been having multiple falls, presents with weakness and encephalopathy PT and OT Most likely will need to transition to either rehab or [facility] facility She is also interested in transitioning to alcohol rehab after physical rehab stay DC 1-2 days when Hb stable and HR stable, DC [place] labs pending, Benadryl-Reaction to lotion ROS-No Headache, No Visual Changes, No Nausea, No Vomiting, No Fever, No Chills, No Neck Pain or Stiffness, No Chest Pain, No Palpitations, No SOB, No THURMAN, No Cough, No Sputum, No Wheezing, No Abdominal Pain, No Diarrhea, No Hematemesis, No Hemoptysis, No Unexpected Weight Loss, No Flank pain, No Melena, No Hematochezia, No Frequency, No Urgency, No Burning, No Hematuria, No Rashes, No Diaphoresis. Appetite is Normal c/o of itchy rash after using lotion Physical Exam Gen-AAO x 3, NAD, Afebrile Head-Mult Facial and body bruises, EOMI, PERRLA, Anicteric Sclera, No Posterior Pharyngeal Erythema Neck-Supple, No JVD, No Thyromegaly, No Masses, No LAD, No Bruits Lungs-Clear to Auscultation Bilaterally, No Rales, No Rhonchi, No Wheezing, No Crepitus Chest-No S4, +S1, +S2, No S3, No Murmurs, No Rubs, No Gallops, No Ectopy Abdomen-Soft, Bowel Sounds Present, Non Tender, Non Distended, No Hepatomegaly, No Splenomegaly, No Palpable Masses, No Rebound, No Rigidity, No Guarding Musculoskeletal-Full Range of Motion Bilaterally, No CVAT Extremities-No Cyanosis, No Clubbing, No Edema, +Rash, +[place] Nuero-Cranial Nerves II-XII grossly intact, Motor WNL, DTRs WNL, Strength WNL, Non Focal Psych-Normal Mood Admission and Anticipated Discharge Date Admission Date: June 16, 2020 Results & Data Results & Data ([facility]) Vital Signs (Past 12 Hours) Vital Signs Temp Pulse Resp BP Pulse Ox 06/22/20 07:14 36.9 C 96 H 18 111/72 97 06/22/20 03:05 36.7 C 95 H 16 117/73 94 06/21/20 23:12 36.6 C 90 18 118/75 96
[2020-06-22] MEDS ORDERED: DiphenhydrAMINE 25 MG in SYRINGE 1 ML IV SCH (07:45)
[2020-06-22] MEDS ORDERED: DiphenhydrAMINE HCL 50 MG/ML VIAL IV ONE (07:45)
[2020-06-22] MEDS: cefUROXime axetil 500 MG TAB PO SCH ×2 (09:00→20:38)
[2020-06-22] MEDS: CHOLECALCIFEROL 1,000 UNITS 25 MCG TAB PO SCH (09:01)
[2020-06-22] MEDS: MAGNESIUM OXIDE 400 MG TAB PO SCH ×2 (09:02→20:40)
[2020-06-22] MEDS: MULTIVITAMIN TAB PO SCH (09:02)
[2020-06-22] MEDS: ZINC SULFATE 220 MG CAPSULE PO SCH (09:02)
[2020-06-22] MEDS: THIAMINE HCL 100 MG TAB PO SCH (09:03)
[2020-06-22] MEDS: FUROSEMIDE 40 MG in SYRINGE 0 ML IV SCH ×2 (09:03→17:07)
[2020-06-22] MEDS: PANTOprazole 40 MG TAB PO SCH ×2 (09:03→20:40)
[2020-06-22] MEDS: GABAPENTIN 300 MG CAP PO SCH ×2 (09:03→20:40)
[2020-06-22] MEDS: DULOXETINE HCL 60 MG CAP PO SCH (09:04)
[2020-06-22] MEDS: CYANOCOBALAMIN 500 MCG TABLET (VITAMIN B-12) PO SCH (09:04)
[2020-06-22] MEDS: POLYETHYLENE (MIRALAX) 17 GM PACK PO SCH ×2 (09:04→17:07)
[2020-06-22] MEDS: FOLIC ACID 1 MG TAB PO SCH (09:05)
[2020-06-22] MEDS: RIFAXIMIN 550 MG TABLET PO SCH ×2 (09:05→20:42)
[2020-06-22 09:49] LABS: INR 1.2 (0.9-1.1); Prothrombin Time 12.8 Seconds (9.0-12.0)
[2020-06-22 10:06] LABS: Calcium 8.5 mg/dl (8.5-10.1); Creatinine Clr Calc Pharmacy 48.3 ml/min; Est GFR (African American) 49.2; Est GFR (Non-African American) 42.4
[2020-06-22 10:24] LABS: Hematocrit (blood only) 30.2 % (37-47); Hemoglobin 9.7 g/dL (12.0-16.0); Mean Corpuscular Hemoglobin 29.7 pg (25-34); Mean Corpuscular Hgb Conc 32.1 g/dL (32-36); Mean Corpuscular Volume 92.4 fL (80-100); Mean Platelet Volume 9.8 fL (7.4-10.4); Platelet Count 217 K/uL (130-400); Platelet Estimate Normal (Normal); RDW Coefficient of Variation 19.5 % (11.5-14.5); RDW Standard Deviation 60.1 fL (36.4-46.3); Red Blood Count 3.27 M/uL (4.2-5.4); White Blood Count 5.94 K/uL (4.8-10.8)
[2020-06-22] MEDS: POTASSIUM CHLORIDE 20 MEQ TABCR PO SCH ×2 (10:31→20:38)
--- NOTE | 2020-06-22 10:46 | Nephrology Progress Note ---
Date of Service June 22, 2020 Assessment & Plan (1) Acute on chronic renal failure: Baseline creatinine 1.3 in late May; I doubt she was on any diuretics at that time though had been rx'd torsemide 20 mg daily for months (based on wts and chemistries Dec-June 2020). Torsemide dose increased to 60 mg daily on 06/12. Pt presented 06/16 with creatinine 2.2. Creatinine today up to 1.37 from 1. -Continue conservative management and monitoring with daily BMP. -Monitor input output and avoid nephrotoxins. (2) Hypokalemia: Presented with K 2.9 on 06/16, up to 3.3 on 06/17. K4 today -Continue K 40 mEq bid granules to be given with minimal fluid -Monitor and replace as needed. (3) Decompensated hepatic cirrhosis: with severe volume overload >Aztreonam (dosed in 100 mL D5W) -We will continue Lasix 40 mg IV twice daily Admission and Anticipated Discharge Date Admission Date: June 16, 2020 Subjective Patient feels better today. She complains of skin itching. No shortness of breath. She was net -1 L yesterday. Review of Systems Review of Systems: All systems reviewed & are unremarkable except as noted in HPI & below Physical Exam Physical Exam: General exam: Appears comfortable, no acute distress HEENT: Pupils are equal and reactive to light Neck: No JVD, neck is supple trachea is midline Respiratory system: Clear breath sounds bilaterally. Gastrointestinal: Abdomen is soft, non distended, non tender, bowel sounds are present CVS: Regular rate and rhythm. No murmurs, rubs or gallops Musculoskeletal: No joint or muscle tenderness Extremities: Non tender, 1+ edema, peripheral pulses are present Neuro: Oriented, no tremors, no focal neurological deficits Skin: No rashes Results & Data ([facility]) Vital Signs (Past 12 Hours) Vital Signs Temp Pulse Resp BP Pulse Ox 06/22/20 07:14 36.9 C 96 H 18 111/72 97 06/22/20 03:05 36.7 C 95 H 16 117/73 94 06/21/20 23:12 36.6 C 90 18 118/75 96 Laboratory Results 06/22/20 09:20 06/22/20 09:20 WBC 5.94 RBC 3.27 L MCV 92.4 MCH 29.7 MCHC 32.1 RDW Std Deviation 60.1 H RDW Coeff of Jake 19.5 H Plt Count 217 D MPV 9.8 (1) Acute on chronic renal failure Acute renal failure type: unspecified Chronic kidney disease stage: stage 3 (moderate) Qualified Code(s): N17.9 - Acute kidney failure, unspecified; N18.3 - Chronic kidney disease, stage 3 (moderate)
--- NOTE | 2020-06-22 12:29 | Cardiology Progress Note ---
Date of Service June 22, 2020 Assessment & Plan (1) Paroxysmal A-fib: Patient with complex medical issues as well noted with history of past paroxysmal atrial arrhythmias/atrial fibrillation previously on anticoagulation Currently not an anticoagulation candidate with risks substantially greater than benefits Would initiate beta-elizabet given telemetry findings and history. Toprol-XL 12.5 mg twice daily ordered We will sign off call with questions Admission and Anticipated Discharge Date Admission Date: June 16, 2020 Subjective Patient seen and examined, telemetry reviewed Telemetry demonstrates short salvos of atrial tachycardia and sinus tachycardia Physical Exam Constitutional: + ill appearing; no acute distress ENMT: Facial ecchymoses Respiratory: Auscultation: lungs clear to auscultation bilaterally Cardiovascular: Rate/Rhythm: regular rate and regular rhythm Gastrointestinal (Abdomen): Percussion/Palpation: abdomen soft Results & Data ([facility]) Vital Signs (Past 12 Hours) Vital Signs Temp Pulse Resp BP Pulse Ox 06/22/20 10:51 36.8 C 96 H 20 114/77 100 06/22/20 07:14 36.9 C 96 H 18 111/72 97 06/22/20 03:05 36.7 C 95 H 16 117/73 94 Laboratory Results Laboratory Results - last 24 hr 06/22/20 06/22/20 06/22/20 09:20 09:20 09:20 WBC 5.94 RBC 3.27 L Hgb 9.7 L Hct 30.2 L MCV 92.4 MCH 29.7 MCHC 32.1 RDW Std Deviation 60.1 H RDW Coeff of Jake 19.5 H Plt Count 217 D MPV 9.8 Platelet Estimate Normal PT 12.8 H INR 1.2 H Sodium 136 Potassium 4.0 Chloride 99 Carbon Dioxide 28 Anion Gap 9.0 BUN 14 Creatinine 1.37 H D Est Cr Clr Drug Dosing 48.3 Est GFR ( Amer) 49.2 Est GFR (Non-Af Amer) 42.4 BUN/Creatinine Ratio 10.0 Glucose 145 H Calcium 8.5
[2020-06-22] MEDS: METOPROLOL SUCC 25MG EXT REL TAB PO SCH ×2 (15:26→20:41)
[2020-06-22] MEDS: HYDROmorphone HCL 2 MG TAB PO PRN (20:45)
[2020-06-23] MEDS: LEVOTHYROXINE SODIUM 75 MCG TABLET PO SCH (06:14)
[2020-06-23] MEDS: METOPROLOL SUCC 25MG EXT REL TAB PO SCH (07:27)
[2020-06-23] MEDS: CYANOCOBALAMIN 500 MCG TABLET (VITAMIN B-12) PO SCH (07:27)
[2020-06-23] MEDS: MULTIVITAMIN TAB PO SCH (07:27)
[2020-06-23] MEDS: FOLIC ACID 1 MG TAB PO SCH (07:28)
[2020-06-23] MEDS: RIFAXIMIN 550 MG TABLET PO SCH (07:28)
[2020-06-23] MEDS: CHOLECALCIFEROL 1,000 UNITS 25 MCG TAB PO SCH (07:29)
[2020-06-23] MEDS: cefUROXime axetil 500 MG TAB PO SCH (07:29)
[2020-06-23] MEDS: ZINC SULFATE 220 MG CAPSULE PO SCH (07:29)
[2020-06-23] MEDS: GABAPENTIN 300 MG CAP PO SCH (07:30)
[2020-06-23] MEDS: MAGNESIUM OXIDE 400 MG TAB PO SCH (07:30)
[2020-06-23] MEDS: THIAMINE HCL 100 MG TAB PO SCH (07:30)
[2020-06-23] MEDS: POTASSIUM CHLORIDE 20 MEQ TABCR PO SCH (07:35)
[2020-06-23] MEDS: DULOXETINE HCL 60 MG CAP PO SCH (07:36)
[2020-06-23] MEDS: PANTOprazole 40 MG TAB PO SCH (07:36)
[2020-06-23] MEDS: POLYETHYLENE (MIRALAX) 17 GM PACK PO SCH (07:37)
--- NOTE | 2020-06-23 08:07 | Discharge Summary ---
Date of Service June 23, 2020 Admission HPI Per Admitting Provider This is a 60-year-old female who has significant past medical history of TSAI/Alcoholic Cirrhosis, PAF anticoagulated on warfarin, CKD stage III, hypothyroidism, history of gastric bypass, history of anastomotic ulcer, chronic pain syndrome, depression, history of C. difficile who presents to ED secondary to fall prior to arrival. Of note she has had 3 falls this past week. She denies any loss of consciousness or syncope. Falls are secondary to off balance and being unsteady. Today she was found with face on floor. She admits to hitting her head twice this past week. Today she also sustained a traumatic f all onto left knee with significant pain. Other than frequent falls she is otherwise been feeling, "okay." She admits to having approximately 6-8 bowel movements daily and therefore she is not taking her lactulose. She continues to have chronic pain to takes Dilaudid 3 times daily as needed. She denies any documented fever but does complain of chills. She denies any sweats, lightheadedness, dizziness, syncope, chest pain, cough, hemoptysis, emesis, hematemesis, abdominal pain, dysuria, increased urgency or frequency with urination, hematuria, melena, hematochezia. Stools, "are cirrhosis like and yellow." She did have one episode of epistaxis a few days ago secondary to fall but was able to stop bleeding. She admits to being compliant with medications. She is currently taking torsemide 60 mg daily which was recently increased. She does not take any potassium supplementation. Admits to 20lb weight gain in last 2 weeks with worsened lower ext edema. In regards to alcohol use she is drinking daily. Last drink was yesterday. She admits to drinking 2-3 alcoholic beers daily. There is also concern regarding Dilaudid use. Family member called in stating she recently had it filled on 06/11 with 75 tablets and currently there is only 20 tablets left. She denies taking excess Dilaudid. She becomes very tearful when questioned and states that current times are very hard for her as she is here alone and most of her family is in [place]. In ED patient was hypotensive upon arrival and was tachycardic. She was otherwise afebrile and saturating well on room air. Notable lab abnormalities include decreased H&H to 7.0 and 20.5, INR greater than 9.7, sodium 129, K2.9, chloride 96, BUN 26, creatinine 2.22, AST 57, ammonia 72.2. She had head CT which was without acute abnormality. Left knee x-ray revealed tricompartmental arthritis otherwise no abnormality. Chest x-ray was without acute abnormality. CT of c spine 2 cm right lobe thyroid nodule. Nonemergent thyroid ultrasonography is recommended in follow-up. She received 500ml IVF in ED along with 20meq KCL K rider. BP did improve to low 100s systolically. Admission Exam Per Admitting Provider Constitutional: Chronically Ill appearing female, vitals as above, NAD, sitting up in bed, answers questions appropriately, drowsy Head: Normocephalic, +ecchymosis to L frontal forehead Eyes: PERRL, conjunctivae normal, anicteric sclerae ENMT: external ear and nose normal, oropharynx normal dry mucous membranes Neck: trachea midline, no thyromegaly normal visual inspection Respiratory: normal respiratory effort, lungs clear to auscultation, no wheeze, rales, rhonchi. Normal insp/exp effort, no accessory muscle use Cardiovascular: tachycardic rate, regular rhythm +3 lower ext edema extending to proximal thigh. Vessels: no JVD or carotid bruit Chest: normal inspection of chest Abdomen: normal bowel sounds, soft, nontender, no hepatosplenomegaly Musculoskeletal: no cyanosis or clubbing, decreased AROM to RUE 2/2 to joint prosthesis, Decrease AROM to RLE 2/2 to R knee explant, Significant ecchymosis to L knee with effusion, displacement of patella (pt with hx of chronically dislocated patella), AROM to LLE, decreased knee flexion, b/l pedal pulse +1 Skin: no rashes, warm and dry normal turgor Neurologic: PERRL, EOMI, accommodation nl, no face palsy, no dysarthria CN's II-XI intact bilaterally and moves all extremities Psychiatric: A+Ox3, but drowsy, euthymic affect Lymphatic: no cervical or axillary lymphadenopathy : deferred Principal Diagnosis Falls: Hepatic encephalopathy Falls secondary to metabolic encephalopathy, multifactorial: Hepatic encephalopathy Alcohol intoxication Anemia, symptomatic, secondary to iron deficiency Likely acute blood loss secondary to left lower extremity hematoma, with cellulitis Klebsiella UTI Decompensated liver cirrhosis TSAI cirrhosis Acute renal failure, CKD III Atrial fibrillation on Coumadin Gastric bypass, status post anastomotic ulcer Chronic pain syndrome Depression Discharge Exam See below Discharge Data Allergies Allergy/AdvReac Type Severity Reaction Status Date / Time cefaclor Allergy Intermediate Swelling Verified 06/16/20 16:22 oxycodone Allergy Intermediate HIVES Verified 06/16/20 16:22 amoxicillin Allergy Mild Nausea Verified 06/16/20 16:22 ceftriaxone [From Rocephin] Allergy Rash Verified 06/16/20 16:22 metronidazole [From Flagyl] Allergy Rash Verified 06/16/20 16:22 Consultations 06/16/20 17:09 ED Decision to Admit Stat 06/16/20 18:51 Consult Gastroenterology Routine 06/16/20 19:49 Consult Case Management - Discharge Planning Routine Consult Orthopedic Surgery Routine 06/17/20 09:52 Consult Nephrology Routine 06/19/20 10:08 Consult Psychiatry Routine 06/20/20 08:56 Consult Cardiology Routine Ordered Studies 06/16/20 15:46 CT cervical spine wo con Stat CT head/brain wo con Stat 06/17/20 10:28 CT tib/fib LT wo con Stat 06/17/20 13:05 US abdomen ltd ascites Routine Current Diagnoses Anemia, unspecified (06/16/20) Hypothyroidism, unspecified (06/16/20) Nontoxic single thyroid nodule (06/16/20) Hypo-osmolality and hyponatremia (06/16/20) Hypokalemia (06/16/20) Chronic pain syndrome (06/16/20) Metabolic encephalopathy (06/16/20) Paroxysmal atrial fibrillation (06/16/20) Hepatic failure, unspecified without coma (06/16/20) Unspecified cirrhosis of liver (06/16/20) Effusion, left knee (06/16/20) Acute kidney failure, unspecified (06/16/20) Chronic kidney disease, stage 3 (moderate) (06/16/20) Diarrhea, unspecified (06/16/20) Difficulty in walking, not elsewhere classified (06/16/20) Abnormal coagulation profile (06/16/20) Contusion of unspecified knee, initial encounter (06/16/20) Unspecified fall, initial encounter (06/16/20) Encounter for prophylactic measures, unspecified (06/16/20) Allergies cefaclor Allergy (Intermediate, Verified 08/15/20 16:22) Swelling oxycodone Allergy (Intermediate, Verified 06/16/20 16:22) HIVES amoxicillin Allergy (Mild, Verified 06/16/20 16:22) Nausea ceftriaxone [From Rocephin] Allergy (Verified 06/16/20 16:22) Rash metronidazole [From Flagyl] Allergy (Verified 06/16/20 16:22) Rash Height/Weight/Isolation Height 5 ft 5 in Weight 97.2 kg Chemistry 06/22/20 09:20 Sodium 136 Potassium 4.0 Chloride 99 Carbon Dioxide 28 Anion Gap 9.0 BUN 14 Creatinine 1.37 H D Glucose 145 H Microbiology 06/17/20 16:17 Blood Aerobic Blood Culture - Final No growth in Aerobic bottle after 5 days. 06/17/20 16:17 Blood Anaerobic Blood Culture - Final No growth in Anaerobic bottle after 5 days. 06/17/20 16:16 Blood Aerobic Blood Culture - Final No growth in Aerobic bottle after 5 days. 06/17/20 16:16 Blood Anaerobic Blood Culture - Final No growth in Anaerobic bottle after 5 days. Hospital Course (1) Falls: 60-year-old female with history of Tsai cirrhosis, atrial fibrillation on Coumadin, CKD stage III, Gastric bypass with anastomotic ulcer, chronic pain syndrome, depression, Presenting with multiple falls from home. In summary, patient lives alone and was admitted for multiple falls found to be multifactorial secondary hepatic encephalopathy, alcohol intoxication, Dilaudid use, symptomatic anemia due to acute blood loss from left lower leg hematoma. Hepatic encephalopathy resolved fairly quickly, back to baseline mental status. Clinically improving overall. Septic work-up revealing left lower extremity cellulitis and UTI. Patient responding well to IV antibiotics. Also not showing signs of acute alcohol withdrawal or DTs while on protocol. Narcotics discontinued. Anemia felt to be secondary to acute blood loss secondary to left lower extremity hematoma in the setting of supratherapeutic INR. Given 4 units of packed RBCs, hemoglobin stable so far. INR also reversed with vitamin K IV and FFP. Orthopedic service attempted to drain the left knee hematoma, but was not successful. Advised ice packing and conservative measures. For volume overload in the setting of liver cirrhosis, nephrology consulted given acute renal failure. Lasix IV given, with improvement of volume status and improvement of creatinine as well. Hb 6.3, repeat 7.2, went into AFIB c RVR, given Metoprolol and Cards saw her, Now in NSR/AFIB intermit, Got 1 unit of PRBCs yesterday 06/20 Falls secondary to metabolic encephalopathy, multifactorial: Hepatic encephalopathy Ammonia level admission 72 Encephalopathy resolved , oriented x3, answers questions appropriately Patient declining lactulose Continue rifaximin, MiraLAX Alcohol intoxication No signs of overt withdrawal since admission Dilaudid, gabapentin, Cymbalta use Try to limit Dilaudid use Monitor closely Anemia, symptomatic, secondary to iron deficiency Likely acute blood loss secondary to left lower extremity hematoma, with cellulitis Supratherapeutic INR on admission, reversed with vitamin K and FFP, INR now 1.5 Hemoglobin 7.2 on admission Status post 5 units of packed RBCs transfused during this stay Transfuse when Hb<=7 CT Left lower ext: 1. No acute fracture or dislocation. 2. Postsurgical changes as above. No evidence of hardware complication. 3. Diffuse subcutaneous edema suggests cellulitis, venous stasis or lymphedema. 4. Partially imaged probable hematoma of the prepatellar tissues measures over 6 cm. 5. Partially imaged joint effusion of the knee. Status post attempted left knee drainage by orthopedic service 06/18/2020, only 4 cc of dark blood obtained, with no signs of infection and consistent with venous hematoma Recommend gentle PT, knee immobilizer, full weightbearing in extension Off daptomycin Klebsiella UTI DC on Cipro x 7 days Decompensated liver cirrhosis TSAI cirrhosis Positive volume overload in the setting of acute renal failure and CKD stage III GI and nephrology on case s/p Lasix 40 mg IV with albumin ordered 3 times daily Patient diuresed adequately, volume overload improved Nephrology recommended to DC Lasix Usual torsemide resume on dc Acute renal failure, CKD III Nephrology on board Atrial fibrillation on Coumadin Supratherapeutic INR 5 on admission Held Coumadin, given vitamin K 10 mg IV and FFP Currently in sinus rhythm Chads Vasc score 1 Based on patient's presentation, not a good candidate for long-term anticoagulation Gastric bypass, status post anastomotic ulcer No signs of GI bleed at this point per GI Continue Protonix Monitor Chronic pain syndrome Patient may be misusing Dilaudid at home will need to be weaned off Dilaudid Depression Per admitting service patient may be having progression of depression symptoms secondary to being alone at home recently secondary to the pandemic Psychiatry on case DVT prophylaxis Anticoagulation contraindicated secondary to acute blood loss, hematoma Status contraindicated secondary to cellulitis versus hematoma Will encourage frequent ambulation when medically stable Disposition DC today to encompass labs pending, Benadryl-Reaction to lotion v Ceftin ROS-No Headache, No Visual Changes, No Nausea, No Vomiting, No Fever, No Chills, No Neck Pain or Stiffness, No Chest Pain, No Palpitations, No SOB, No THURMAN, No Cough, No Sputum, No Wheezing, No Abdominal Pain, No Diarrhea, No Hematemesis, No Hemoptysis, No Unexpected Weight Loss, No Flank pain, No Melena, No Hematochezia, No Frequency, No Urgency, No Burning, No Hematuria, No Rashes, No Diaphoresis. Appetite is Normal c/o of itchy rash after using lotion, but Ceftin started-will DC in favor of Cipro Physical Exam Gen-AAO x 3, NAD, Afebrile Head-Mult Facial and body bruises, EOMI, PERRLA, Anicteric Sclera, No Posterior Pharyngeal Erythema Neck-Supple, No JVD, No Thyromegaly, No Masses, No LAD, No Bruits Lungs-Clear to Auscultation Bilaterally, No Rales, No Rhonchi, No Wheezing, No Crepitus Chest-No S4, +S1, +S2, No S3, No Murmurs, No Rubs, No Gallops, No Ectopy Abdomen-Soft, Bowel Sounds Present, Non Tender, Non Distended, No Hepatomegaly, No Splenomegaly, No Palpable Masses, No Rebound, No Rigidity, No Guarding Musculoskeletal-Full Range of Motion Bilaterally, No CVAT Extremities-No Cyanosis, No Clubbing, No Edema, +Rash, [place] out Nuero-Cranial Nerves II-XII grossly intact, Motor WNL, DTRs WNL, Strength WNL, Non Focal Psych-Normal Mood Total Time Total Time Spent Total Time Spent (In Minutes): 45 mins Total Time Includes: Examination of the Patient, Discharge Planning, Medication Reconciliation and Communication With Other Providers Discharge Plan Discharge Items Patient Disposition: Transfer Inpatient Rehab Fac Reason For Visit: DECOMPENSATED CIRRHOSIS,SUPRATHERAPEUTIC INR,ANEMI Discharge Diagnosis: Falls: Hepatic encephalopathy Falls secondary to metabolic encephalopathy, multifactorial: Hepatic encephalopathy Alcohol intoxication Anemia, symptomatic, secondary to iron deficiency Likely acute blood loss secondary to left lower extremity hematoma, with cellulitis Klebsiella UTI Decompensated liver cirrhosis TSAI cirrhosis Acute renal failure, CKD III Atrial fibrillation on Coumadin Gastric bypass, status post anastomotic ulcer Chronic pain syndrome Depression Condition on Discharge: Fair Activity: Per Instructions section Activity Comment: As tolaerated Lifting: Gradually increase as tolerated Bathing: No limitations Sexual Activity: When tolerated Exercise/Sports: Gradually increase as tolerated Driving/Machine Use: No limitations Weightbearing: Full weightbearing Non-emergency contact: Primary Care Provider Call non-emergency contact if: you have any medication questions Follow-up/Referrals: Naresh Bro MD [Primary Care Provider] - Diet: Heart Healthy Addtl Attending Provider Instructions: None Pending Studies at Discharge: No Stand-Alone Forms: My [employer] Skilled Items Patient informed of condition?: Yes DNR: No Discharge Level of Care: Acute rehab Communicable Disease: No Discharge Prognosis: Improving Lines: None Urinary Catheter: No Medications and DC Order Prescriptions: New thiamine HCl (vitamin B1) [Vitamin B-1] 100 mg Tablet 100 mg PO QAM Qty: 20 RF: 0 hydromorphone 2 mg Tablet 2 mg PO BID PRN (Reason: pain) Qty: 30 RF: 0 gabapentin 300 mg Capsule 300 mg PO BID Qty: 60 RF: 0 folic acid 1 mg Tablet 1 mg PO QAM Qty: 20 RF: 0 metoprolol succinate 25 mg Tablet Extended Release 24 Hr 12.5 mg PO BID Qty: 60 RF: 0 ciprofloxacin HCl 500 mg tablet 500 mg PO Q12H Qty: 14 RF: 0 Continued Xifaxan 550 mg tablet 550 mg PO BID RF: 0 cholecalciferol (vitamin D3) [Vitamin D3] 2,000 unit capsule 4,000 unit PO DAILY RF: 0 pantoprazole [Protonix] 40 mg Tablet,Delayed Release (Dr/Ec) 40 mg PO BID RF: 0 duloxetine [Cymbalta] 60 mg Capsule,Delayed Release(Dr/Ec) 60 mg PO QAM RF: 0 lactulose [Generlac] 10 gram/15 mL Solution 45 ml PO DAILY PRN (Reason: Constipation) RF: 0 cetirizine [Zyrtec] 10 mg tablet 10 mg PO QAM RF: 0 multivitamin Tablet 1 tab PO QAM RF: 0 sucralfate [Carafate] 1 gram Tablet 1 g PO BID PRN (Reason: Dyspepsia) RF: 0 ondansetron HCl [Zofran] 4 mg Tablet 4 mg PO Q8 PRN (Reason: Nausea) RF: 0 cyanocobalamin (vitamin B-12) [Vitamin B-12] 1,000 mcg Tablet 1,000 mcg PO QAM RF: 0 levothyroxine [Synthroid] 75 mcg Tablet 75 mcg PO QAM RF: 0 zinc sulfate 220 mg Tablet 220 mg PO QAM RF: 0 magnesium oxide 400 mg magnesium Tablet 400 mg PO BID RF: 0 diphenhydramine HCl [Benadryl] 25 mg Capsule 25 mg PO Q6 PRN (Reason: itching) Qty: 15 RF: 0 torsemide 20 mg tablet 60 mg PO DAILY RF: 0 ferrous sulfate 220 mg (44 mg iron)/5 mL elixir 220 mg PO DAILY RF: 0 Probiotic 1 cap PO TID RF: 0 Discontinued warfarin [Coumadin] 4 mg tablet 6 - 10 mg PO HS RF: 0 hydromorphone [Dilaudid] 2 mg Tablet 2 mg PO BID PRN (Reason: Pain) RF: 0 gabapentin [Neurontin] 600 mg tablet 600 mg PO BID RF: 0 hydromorphone [Dilaudid] 2 mg tablet 1 mg PO .DAILY @ LUNCH PRN (Reason: Pain) RF: 0 Discharge Orders: Discharge Order (Routine); Ordered 06/23/20 Ordered By: Rommel Hanson Admission Data Admit Date/Time: 06/16/20 18:03 Attending Provider: Rommel Hanson Admit Provider: Ade Brown Primary Care Provider: Naresh Bro Other Providers: Pino Stout ; Ade Brown ; Alfonso Jones Stacy L. ; Fransisco Love Ashley ; Reji Meredith ; Navjot Reyes ; Jose Guzman ; Lynne Maza ; Manuel Sarabia ; Amee Eng ; Effie King ; Bobbi Anguiano ; Janene Hernandez ; Jarad Schmid I. ; Sheila Tiwari ; Mallorie Flowers ; Kenyetta Robert ; Tawanda Mar ; Kevin Badillo ; [facility],[place]
[2020-06-23] MEDS: FUROSEMIDE 40 MG in SYRINGE 0 ML IV SCH (09:19)
[2020-06-23] MEDS: HYDROmorphone HCL 2 MG TAB PO PRN (09:44)
[2020-06-23 10:07] LABS: Hematocrit (blood only) 27.9 % (37-47); Mean Corpuscular Hgb Conc 32.3 g/dL (32-36); Mean Platelet Volume 9.7 fL (7.4-10.4); Platelet Count 241 K/uL (130-400); RDW Standard Deviation 59.6 fL (36.4-46.3); White Blood Count 7.89 K/uL (4.8-10.8)
[2020-06-23 10:24] LABS: INR 1.3 (0.9-1.1); Prothrombin Time 13.4 Seconds (9.0-12.0)
[2020-06-23 10:25] LABS: Albumin Level 2.3 gm/dl (3.4-5.0); BUN Creatinine Ratio 10.6 (10-20); Calcium 8.2 mg/dl (8.5-10.1); Creatinine Clr Calc Pharmacy 50.5 ml/min; Est GFR (African American) 47.9; Est GFR (Non-African American) 41.3; Potassium 4.5 mmol/L (3.5-5.1)
[2020-06-23 10:28] LABS: Albumin Globulin Ratio 0.9 (0.9-2); Bilirubin,Total 1.2 mg/dl (0.2-1); Globulin 2.5 gm/dl (2.5-4.0); Total Protein 4.8 gm/dl (6.4-8.2)
--- NOTE | 2020-06-23 11:01 | Nephrology Progress Note ---
Date of Service June 23, 2020 Assessment & Plan (1) Acute on chronic renal failure: Baseline creatinine 1.3 in late May; I doubt she was on any diuretics at that time though had been rx'd torsemide 20 mg daily for months (based on wts and chemistries Dec-June 2020). Torsemide dose increased to 60 mg daily on 06/12. Pt presented 06/16 with creatinine 2.2. Creatinine today up to 1.4 from 1.3 -Continue conservative management and monitoring with daily BMP. -Monitor input output and avoid nephrotoxins. -From renal standpoint patient can be discharged and renal follow-up in 1 to 2 weeks. (2) Hypokalemia: Presented with K 2.9 on 06/16, up to 3.3 on 06/17. K4 today -Reduce potassium chloride supplements to 20 mEq daily on discharge -Monitor and replace as needed. (3) Decompensated hepatic cirrhosis: with severe volume overload Patient can be discharged on torsemide 60 mg daily Admission and Anticipated Discharge Date Admission Date: June 16, 2020 Subjective Patient feels better today no shortness of breath. Leg swelling has subsided. He has been ambulating. She is eager to be discharged home/rehab. Review of Systems Review of Systems: All systems reviewed & are unremarkable except as noted in HPI & below Physical Exam Physical Exam: General exam: Appears comfortable, no acute distress HEENT: Pupils are equal and reactive to light Neck: No JVD, neck is supple trachea is midline Respiratory system: Clear breath sounds bilaterally. Gastrointestinal: Abdomen is soft, non distended, non tender, bowel sounds are present CVS: Regular rate and rhythm. No murmurs, rubs or gallops Musculoskeletal: No joint or muscle tenderness Extremities: Non tender, 1+ edema, peripheral pulses are present Neuro: Oriented, no tremors, no focal neurological deficits Skin: No rashes, bruises on the left leg Results & Data ([facility]) Vital Signs (Past 12 Hours) Vital Signs Temp Pulse Pulse Resp BP BP Pulse Ox 06/23/20 08:36 36.6 C 80 18 121/75 113/75 97 06/23/20 07:22 36.6 C 80 18 113/75 97 06/23/20 07:06 80 06/23/20 04:20 36.8 C 80 18 91/56 L 94 06/22/20 23:18 36.6 C 77 19 129/83 98 Laboratory Results 06/23/20 10:00 06/23/20 06/23/20 10:00 10:00 WBC 7.89 RBC 3.00 L MCV 93.0 MCH 30.0 MCHC 32.3 RDW Std Deviation 59.6 H RDW Coeff of Jake 20.0 H Plt Count 241 MPV 9.7 Albumin 2.3 L (1) Acute on chronic renal failure Acute renal failure type: unspecified Chronic kidney disease stage: stage 3 (moderate) Qualified Code(s): N17.9 - Acute kidney failure, unspecified; N18.3 - Chronic kidney disease, stage 3 (moderate)
[2020-06-23] MEDS ORDERED: ONDANSETRON 4 MG OD TAB PO STA (13:35)
== END 2020-06-23 15:39 | DRG 441 ==
LOC: ED 15:34 → 2S 18:03 → SUATTDRO 18:03 → 2S 19:12

== ENCOUNTER 2020-09-02 08:47 | Inpatient (IN) ==
--- NOTE | 2020-09-02 08:52 | Emergency Department Note ---
Impression & Plan Fracture of hip, right, closed, Fall, Multiple rib fractures, Hyponatremia, Hypokalemia ED Provider Note NAME: ROMULO JARVIS AGE: 60 SEX: F : 1960 ARRIVES VIA: Ambulance INFORMANT: Patient, ED PROVIDER(S): Young Burnett MD Chief Complaint: Fall, hip and chest pain HPI: Patient does present via EMS after being found on the ground at home. Patient believes that she had a fall 1 week prior and is has been persistent pain and that today she just slid out of bed as the patient was having difficulty with ambulation. Patient denies any fevers, chills, shortness of breath, nausea or vomiting. The patient denies any recent alcohol use. The patient's pain is primarily over the chest and right lower extremity. The patient has not taken anything for pain at home. The patient describes it as sharp worsening with palpation or with ambulation. Patient did present most recently back in June where the patient did present for persistent falls and decompensated cirrhosis. The patient did have an el evated INR and low sodium and potassium with an elevated ammonia. The patient did have supratherapeutic therapeutic INR which did require treatment. Patient was deemed not to be a further good candidate for anticoagulant therapy. ROS: See HPI for pertinent positives and negatives. A total of 10 systems were reviewed and otherwise negative. Past medical history: See below Surgical history: See below Social history: See below Physical Exam: GENERAL: Chronically ill in appearance. NAD, a mask was placed on the patient. EYE EXAM: Normal conjunctiva. PERRL, no anisocoria and EOM's grossly intact w/o pain. NECK: Supple, no nuchal rigidity, no adenopathy, non-tender. No signs of meningismus. No midline C-spine TTP. Chest: Mild right-sided chest wall TTP with small area of bruising without fluctuance or crepitus. LUNGS: Clear to auscultation. Normal chest wall mechanics. HEART: NSR, no MRG. ABDOMEN: Abdomen soft, non-tender, normo-active bowel sounds, no masses, no rebound or guarding. BACK: Small area of bruising to the midline portion of the distal thoracic spine without TTP. SKIN: No rashes UPPER EXTREMITIES: Upper extremities are grossly normal. LOWER EXTREMITIES: Grossly normal, no edema. NEURO EXAM: A&O x3, cranial nerves II-XII grossly intact, normal speech, moves all 4 extremities on command w/o issue. Differential diagnoses: Infection, dehydration, metabolic abnormality, hypo/hyperglycemia, electrolyte disturbance, anemia, hypoxia, cardiac sources, intracerebral event, toxicologic, neurologic, as well as other pathologies. Course: Patient was seen and evaluated the bedside. Full history physical exam was performed. EKG: Indication: Weakness Imaging Studies: Radiology results as stated below per my review in the radiologist's interpretation: XR ribs RT min 2V w CXR1V HISTORY: 60 years-old Female fall, R sided chest wall bruising acute right-side d chest pain status post fall COMPARISON: Chest radiograph March 16, 2020 TECHNIQUE: PA view the chest with 5 views the right ribs FINDINGS: Postoperative changes of the right humerus redemonstrated. Cardiomediastinal and hilar silhouettes are within normal limits. There is no pneumothorax, pleural effusion, airspace consolidation or overt pulmonary edema. Degenerative changes of the spine and left shoulder. There are acute fractures noted involving the lateral and anterior aspects of the right second through seventh ribs. There is mild displacement of the second and seventh rib fractures. Cholecystectomy. Upper abdominal herniorrhaphy changes. IMPRESSION: 1. No acute cardiopulmonary abnormality. 2. Acute fractures of the lateral/anterolateral right second through seventh ribs, some fractures demonstrating mild displacement. 3. No pneumothorax. ACT 112: Negative or not required by law. The above report was generated using voice recognition software. It may contain grammatical, syntax or spelling errors. Electronically signed by: Renan Campos M.D. 09/02/2020 11:20 AM Dictated: 09/02/20 1116 Transcribed: 09/02/20 1116 XR knee RT 1 or 2V routine HISTORY: 60 years-old Female fall, R knee pain acute right-sided knee pain without reported trauma COMPARISON: Pelvis and right hip radiographs of same day, right femur, tibia and fibula radiographs 08/22/2018. TECHNIQUE: 2 views of the right knee FINDINGS: Demineralized appearance of the bones. There is a medullary miki noted within the distal femur and proximal tibia with the spacer/joint space segment which extends into the suprapatellar joint space. Findings are unchanged from comparison. No acute fracture or dislocation. IMPRESSION: 1. No acute fracture or dislocation. 2. Stable postoperative findings as above. ACT 112: Negative or not required by law. The above report was generated using voice recognition software. It may contain grammatical, syntax or spelling errors. Electronically signed by: Renan Campos M.D. 09/02/2020 11:16 AM Dictated: 09/02/20 1113 Transcribed: 09/02/20 1113 XR hip RT 2V w pelvis HISTORY: 60 years-old Female fall, R leg pain acute pelvic and right-sided hip pain status post fall COMPARISON: CT abdomen pelvis 03/19/2020 TECHNIQUE: AP view of the pelvis with 2 views the right hip FINDINGS: Demineralized appearance the bones. 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 Ill-defined lucency involving the superior lateral right acetabulum. Soft tissues are unremarkable. No definite acute fracture or subluxation. IMPRESSION: Ill-defined linear lucency involving the superior lateral right acetabulum is favored to represent trabecular markings, however a subtle acute nondisplaced fracture could appear similarly. ACT 112: Negative or not required by law. The above report was generated using voice recognition software. It may contain grammatical, syntax or spelling errors. Electronically signed by: Renan Campos M.D. 09/02/2020 11:24 AM Dictated: 09/02/200 Transcribed: 09/02/201119 Cardiac monitoring: An order was placed for continuous cardiac monitoring. The monitor shows a rate of 102 with sinus rhythm. MDM: Patient did present with concern for fall. The patient did a bladder completed along with a CT of the head as well as right hip, knee, and right-sided rib and chest x-rays. The patient does have some mild leukopenia and anemia. The patient's anemia is chronic and stable. Platelet count is unremarkable. The patient's coagulation studies do show mild elevation in PTT been on INR. The patient does have hyponatremia and hypokalemia. Patient does have some REJI with creatinine of 2.4. The patient was ordered IV fluids and potassium replacement. The patient did receive some pain medication given that on x-ray the patient does have right-sided rib fractures without pneumothorax. Urinalysis is questionable for infection but the patient is not complaining of any dysuria at this time. The patient does have a possible lucency at the right acetabulum which may be trabecular nature. Given the patient's electrolyte abnormalities, dehydration, and rib fractures I did speak with the on-call hospitalist. The patient was admitted by the medicine service to Dr. Foley. I did discuss the possible lucency with Dr. Foley as well and a CT of the hip was ordered. There is a noted hip fracture. Past Med/Surg History Medical History (Updated 09/02/20 @ 14:54 by Young Burnett MD) REJI (acute kidney injury) Anemia, iron deficiency Ascites Cirrhosis CKD (chronic kidney disease) stage 3, GFR 30-59 ml/min Depression Gastric peptic ulcer Hypothyroidism Neuropathy of both feet On anticoagulant therapy warfarin daily Surgical History History of arthrodesis left leg History of arthroplasty of right shoulder unable to lift arm after sx History of arthroscopy of left knee x2 History of arthroscopy of right knee x7 History of cardiac cath 2011--no stents History of cholecystectomy History of colonoscopy History of esophagogastroduodenoscopy (EGD) History of gastric bypass History of open reduction and internal fixation (ORIF) procedure left tib/fib fx--hardware in place History of surgery on extremity 2016--right leg hardware in place per pt a "fusion of her leg" History of tooth extraction all teeth removed History of total right knee replacement (TKR) 2006 Family History Sister Breast cancer Mother Hypertension Diabetes Other No family history of adverse response to anesthesia Social History Smoking Status: Never smoker Second Hand Exposure: No; Hx Alcohol Use: No Hx Substance Use: No Preferred Language: Hungarian Communication Ability: Effective Sanitation Supervisor Required: No Beliefs That Will Affect Care: None Current Living Situation: Alone Other Information That Helps Us Care for You: No Feels Safe at Home: Yes Safety Concerns: Feels Safe At This Time Assistive Devices: Denture - Upper, Denture - Lower, Glasses and Walker Allergies Allergies Allergy/AdvReac Type Severity Reaction Status Date / Time cefaclor Allergy Intermediate Swelling Verified 09/02/20 09:04 oxycodone Allergy Intermediate HIVES Verified 09/02/20 09:04 amoxicillin Allergy Mild Nausea Verified 09/02/20 09:04 ceftriaxone [From Rocephin] Allergy Rash Verified 09/02/20 09:04 metronidazole [From Flagyl] Allergy Rash Verified 09/02/20 09:04 Home Meds Home Medications Medication Instructions Recorded Confirmed cyanocobalamin (vitamin B-12) 1,000 mcg PO QAM 08/22/18 09/02/20 [Vitamin B-12] levothyroxine [Synthroid] 75 mcg PO DAILY@0700 08/22/18 09/02/20 multivitamin 1 tab PO QAM 08/22/18 09/02/20 sucralfate [Carafate] 1 g PO BID 08/22/18 09/02/20 Xifaxan 550 mg PO BID 10/03/18 09/02/20 cholecalciferol (vitamin D3) 2,000 unit PO QAM 10/03/18 09/02/20 [Vitamin D3] duloxetine [Cymbalta] 60 mg PO QAM 07/19/19 09/02/20 lactulose [Generlac] 30 ml PO DAILY PRN 07/19/19 09/02/20 pantoprazole [Protonix] 40 mg PO QAM 07/19/19 09/02/20 cetirizine [Zyrtec] 10 mg PO DAILY@1200 04/05/20 09/02/20 torsemide 60 mg PO DAILY@1200 06/16/20 09/02/20 L.acidoph,saliva-B.bif-S.therm 1 cap PO TID 09/02/20 09/02/20 [Acidophilus Probiotic Blend] amitriptyline 50 mg PO HS 09/02/20 09/02/20 cyclobenzaprine 10 mg PO Q8H PRN 09/02/20 09/02/20 duloxetine 30 mg PO DAILY@1600 09/02/20 09/02/20 ferrous sulfate 325 mg PO QAM 09/02/20 09/02/20 furosemide 40 mg PO QAM 09/02/20 09/02/20 ibuprofen 800 mg PO Q8H PRN 09/02/20 09/02/20 lidocaine [Lidocare] 1 patch TOPICAL DAILY PRN 09/02/20 09/02/20 melatonin 6 mg PO HS PRN 09/02/20 09/02/20 potassium chloride 10 meq PO BID 09/02/20 09/02/20 propranolol 10 mg PO Q8H PRN 09/02/20 09/02/20 Previous Rx's Medication Instructions Recorded gabapentin 300 mg PO BID #60 cap 06/23/20 Results & Data (ED) Vital Signs Vital Signs - 24 hr 09/02/20 08:53 09/02/20 09:04 09/02/20 10:27 Temperature 36.5 C Temperature Source Oral Pulse Rate 102 H 101 H Pulse Rate from SpO2 Sensor Respiratory Rate 20 14 Respiratory Effort / Characteristics Non-Labored Spontaneous Respiratory Depth Normal Respiratory Pattern Regular Blood Pressure 136/87 117/79 Blood Pressure Mean 103 83 Pulse Oximetry 100 100 Oxygen Delivery Method Room Air Room Air Sepsis Recent Fever Within 48 Hours No Sepsis New/Unexplained Change in Mental Status No Sepsis Action Taken by Nursing No Action Required 09/02/20 11:29 09/02/20 11:31 09/02/20 12:00 Temperature Temperature Source Pulse Rate 95 H 100 H 96 H Pulse Rate from SpO2 Sensor 101 H 100 H 96 H Respiratory Rate 17 19 13 Respiratory Effort / Characteristics Respiratory Depth Respiratory Pattern Blood Pressure 140/80 121/91 115/80 Blood Pressure Mean 84 95 95 Pulse Oximetry 99 100 100 Oxygen Delivery Method Sepsis Recent Fever Within 48 Hours Sepsis New/Unexplained Change in Mental Status Sepsis Action Taken by Nursing Laboratory Data Result diagrams: 09/02/20 09:28 09/02/20 09:28 Lab Results 09/02/20 09/02/20 09/02/20 Range/Units 09:28 09:28 09:28 WBC 3.45 L (4.8-10.8) K/uL RBC 3.21 L (4.2-5.4) M/uL Hgb 9.7 L (12.0-16.0) g/dL Hct 27.9 L (37-47) % MCV 86.9 (80-100) fL MCH 30.2 (25-34) pg MCHC 34.8 (32-36) g/dL RDW Std Deviation 49.4 H (36.4-46.3) fL RDW Coeff of Jake 15.3 H (11.5-14.5) % Plt Count 248 (130-400) K/uL MPV 10.4 (7.4-10.4) fL Immature Gran % (Auto) 0.0 % Neut % (Auto) 47.3 % Lymph % (Auto) 36.8 % [place] % (Auto) 10.7 % Eos % (Auto) 4.6 % Baso % (Auto) 0.6 % Neut # (Auto) 1.63 (1.4-6.5) K/uL Lymph # (Auto) 1.27 (1.2-3.4) K/uL [place] # (Auto) 0.37 (0.11-0.59) K/uL Eos # (Auto) 0.16 (0-0.5) K/uL Baso # (Auto) 0.02 (0-0.2) K/uL Immature Gran # (Auto) 0.00 (0.00-0.02) K/uL PT 11.4 (9.0-12.0) Seconds INR 1.1 (0.9-1.1) APTT 33.0 H (21.0-31.0) Seconds PTT Ratio 1.2 Sodium 133 L (136-145) mmol/L Potassium 2.8 L (3.5-5.1) mmol/L Chloride 101 (98-107) mmol/L Carbon Dioxide 19 L (21-32) mmol/L Anion Gap 13.0 H (3-11) BUN 41 H (7-18) mg/dl Creatinine 2.47 H (0.6-1.2) mg/dl Est Cr Clr Drug Dosing 30.3 ml/min Est GFR ( Amer) 24.1 Est GFR (Non-Af Amer) 20.8 BUN/Creatinine Ratio 16.6 (10-20) Glucose 114 H (70-99) mg/dl Calcium 8.7 (8.5-10.1) mg/dl Total Bilirubin 0.4 (0.2-1) mg/dl AST 33 (15-37) U/L ALT 20 (12-78) U/L Alkaline Phosphatase 239 H (45-117) U/L Ammonia (11-32) umol/L Total Protein 6.0 L (6.4-8.2) gm/dl Albumin 2.6 L (3.4-5.0) gm/dl Globulin 3.4 (2.5-4.0) gm/dl Albumin/Globulin Ratio 0.8 L (0.9-2) TSH 5.520 H (0.300-4.500) uIu/ml Free T4 1.33 (0.8-1.6) ng/dl Urine Color Urine Appearance (Clear) Urine pH (4.5-7.5) Ur Specific [place] (1.000-1.030) Urine Protein (Negative) Urine Glucose (UA) (Negative) Urine Ketones (Negative) Urine Blood (Negative) Urine Nitrite (Negative) Urine Bilirubin (Negative) Urine Urobilinogen (Negative) Ur Leukocyte Esterase (Negative) Urine WBC (Auto) (0-5) /hpf Urine RBC (Auto) (0-4) /hpf U Hyaline Cast (Auto) (0-5) /lpf U Epithel Cells (Auto) (0-5) /lpf Urine Bacteria (Auto) (Negative) Ethyl Alcohol mg/dL (0-3) mg/dl 09/02/20 09/02/20 09/02/20 Range/Units 09:28 09:28 11:30 WBC (4.8-10.8) K/uL RBC (4.2-5.4) M/uL Hgb (12.0-16.0) g/dL Hct (37-47) % MCV (80-100) fL MCH (25-34) pg MCHC (32-36) g/dL RDW Std Deviation (36.4-46.3) fL RDW Coeff of Jake (11.5-14.5) % Plt Count (130-400) K/uL MPV (7.4-10.4) fL Immature Gran % (Auto) % Neut % (Auto) % Lymph % (Auto) % [place] % (Auto) % Eos % (Auto) % Baso % (Auto) % Neut # (Auto) (1.4-6.5) K/uL Lymph # (Auto) (1.2-3.4) K/uL [place] # (Auto) (0.11-0.59) K/uL Eos # (Auto) (0-0.5) K/uL Baso # (Auto) (0-0.2) K/uL Immature Gran # (Auto) (0.00-0.02) K/uL PT (9.0-12.0) Seconds INR (0.9-1.1) APTT (21.0-31.0) Seconds PTT Ratio Sodium (136-145) mmol/L Potassium (3.5-5.1) mmol/L Chloride (98-107) mmol/L Carbon Dioxide (21-32) mmol/L Anion Gap (3-11) BUN (7-18) mg/dl Creatinine (0.6-1.2) mg/dl Est Cr Clr Drug Dosing ml/min Est GFR ( Amer) Est GFR (Non-Af Amer) BUN/Creatinine Ratio (10-20) Glucose (70-99) mg/dl Calcium (8.5-10.1) mg/dl Total Bilirubin (0.2-1) mg/dl AST (15-37) U/L ALT (12-78) U/L Alkaline Phosphatase (45-117) U/L Ammonia 19.6 (11-32) umol/L Total Protein (6.4-8.2) gm/dl Albumin (3.4-5.0) gm/dl Globulin (2.5-4.0) gm/dl Albumin/Globulin Ratio (0.9-2) TSH (0.300-4.500) uIu/ml Free T4 (0.8-1.6) ng/dl Urine Color Yellow Urine Appearance Clear (Clear) Urine pH 5.0 (4.5-7.5) Ur Specific [place] 1.009 (1.000-1.030) Urine Protein Negative (Negative) Urine Glucose (UA) Negative (Negative) Urine Ketones Negative (Negative) Urine Blood Negative (Negative) Urine Nitrite Negative (Negative) Urine Bilirubin Negative (Negative) Urine Urobilinogen Negative (Negative) Ur Leukocyte Esterase 1+ H (Negative) Urine WBC (Auto) 5-10 H (0-5) /hpf Urine RBC (Auto) 0-4 (0-4) /hpf U Hyaline Cast (Auto) 1-5 (0-5) /lpf U Epithel Cells (Auto) 10-20 H (0-5) /lpf Urine Bacteria (Auto) 2+ H (Negative) Ethyl Alcohol mg/dL < 3.0 (0-3) mg/dl Administered Medications Fentanyl Citrate (Fentanyl Citrate 100 Mcg/2 Ml Vial) 25 mcg IV NOW PRN PRN Reason: Pain Stop: 09/16/20 10:17 Last Admin: 09/02/20 10:32 Dose: 25 mcg Documented by: [id number] Fentanyl Citrate (Fentanyl Citrate 100 Mcg/2 Ml Vial) 25 mcg IV Q1H PRN PRN Reason: Pain Stop: 09/16/20 11:33 Last Admin: 09/02/20 12:13 Dose: 25 mcg Documented by: [id number] Discontinued Medications Sodium Chloride (Nss 1000ml) 1,000 mls @ 999 mls/hr IV .Q1H1M ONE Stop: 09/02/20 12:35 Last Infusion: 09/02/20 13:13 Dose: 0 mls/hr Documented by: [id number] Admin: 09/02/20 12:12 Dose: 999 mls/hr Documented by: [id number] Potassium Chloride (Potassium Chloride 20 Meq Tabcr) 40 meq PO NOW STA Stop: 09/02/20 11:36 Last Admin: 09/02/20 12:12 Dose: 40 meq Documented by: [id number] Discharge Plan Visit Data Chief Complaint: Fall ED Provider: Young Burnett Discharge Problem: Fracture of hip, right, closed, Fall, Multiple rib fractures, Hyponatremia, Hypokalemia Patient Disposition: Admitted As Inpatient Discharge Instructions Interventions: ED Discharge Assessment Last Done: 09/02/20 13:43 Discharge Problem: Fracture of hip, right, closed Qualifiers: Encounter type: initial encounter Qualified Code(s): S72.001A - Fracture of unspecified part of neck of right femur, initial encounter for closed fracture Fall Qualifiers: Encounter type: initial encounter Qualified Code(s): W19.XXXA - Unspecified fall, initial encounter Multiple rib fractures Qualifiers: Encounter type: initial encounter Fracture type: closed Laterality: right Qualified Code(s): S22.41XA - Multiple fractures of ribs, right side, initial encounter for closed fracture
[2020-09-02 09:53] LABS: Basophils # (auto) 0.02 K/uL (0-0.2); Basophils % (auto) 0.6 %; Eosinophils # (auto) 0.16 K/uL (0-0.5); Eosinophils % (auto) 4.6 %; Hematocrit (blood only) 27.9 % (37-47); Hemoglobin 9.7 g/dL (12.0-16.0); Lymphocytes # (auto) 1.27 K/uL (1.2-3.4); Lymphocytes % (auto) 36.8 %; Mean Corpuscular Hemoglobin 30.2 pg (25-34); Mean Corpuscular Hgb Conc 34.8 g/dL (32-36); Mean Corpuscular Volume 86.9 fL (80-100); Mean Platelet Volume 10.4 fL (7.4-10.4); Monocytes # (auto) 0.37 K/uL (0.11-0.59); Monocytes % (auto) 10.7 %; Neutrophils # (auto) 1.63 K/uL (1.4-6.5); Neutrophils % (auto) 47.3 %; Platelet Count 248 K/uL (130-400); RDW Coefficient of Variation 15.3 % (11.5-14.5); RDW Standard Deviation 49.4 fL (36.4-46.3); Red Blood Count 3.21 M/uL (4.2-5.4); White Blood Count 3.45 K/uL (4.8-10.8)
[2020-09-02 10:11] LABS: Albumin Level 2.6 gm/dl (3.4-5.0); BUN Creatinine Ratio 16.6 (10-20); Calcium 8.7 mg/dl (8.5-10.1); Creatinine Clr Calc Pharmacy 30.3 ml/min; Est GFR (African American) 24.1; Est GFR (Non-African American) 20.8; Potassium 2.8 mmol/L (3.5-5.1)
[2020-09-02 10:13] LABS: INR 1.1 (0.9-1.1); Partial Thromboplastin Ratio 1.2; Prothrombin Time 11.4 Seconds (9.0-12.0)
[2020-09-02] MEDS ORDERED: fentaNYL citrate 100 MCG/2 ML VIAL IV PRN ×2 (10:18→11:34)
[2020-09-02 10:21] LABS: Albumin Globulin Ratio 0.8 (0.9-2); Bilirubin,Total 0.4 mg/dl (0.2-1); Globulin 3.4 gm/dl (2.5-4.0); Thyroid Stimulating Hormone 5.52 uIu/ml (0.300-4.500)
[2020-09-02 10:34] LABS: T4 Free Thyroxine 1.33 ng/dl (0.8-1.6)
--- NOTE | 2020-09-02 10:46 | CT Scan Report ---
CT head/brain wo con CLINICAL HISTORY: 60 years-old Female with fall. Acute head injury status post fall TECHNIQUE: Multiple axial CT images of the head were obtained without contrast. A dose lowering tech nique was utilized adhering to the principles of ALARA. CT DOSE: 614.27 mGy.cm COMPARISON: Head CT 06/16/2020 FINDINGS: No acute intracranial hemorrhage, midline shift, intracranial mass, hydrocephalus, territorial ischem ia or abnormal extra-axial collection. The calvarium is intact. The paranasal sinuses, mastoid air cells, and middle ear cavities are clear . IMPRESSION: No acute intracranial abnormality. ACT 112: Negative or not required by law. The above report was generated using voice recognition software. It may contain grammatical, syntax o r spelling errors. Electronically signed by: Renan Campos M.D. 09/02/2020 10:45 AM
--- NOTE | 2020-09-02 11:17 | XRay Report ---
XR knee RT 1 or 2V routine HISTORY: 60 years-old Female fall, R knee pain acute right-sided knee pain without reported trauma COMPARISON: Pelvis and right hip radiographs of same day, right femur, tibia and fibula radiographs 1 . TECHNIQUE: 2 views of the right knee FINDINGS: Demineralized appearance of the bones. There is a medullary miki noted within the distal femur and pro ximal tibia with the spacer/joint space segment which extends into the suprapatellar joint space. Fin dings are unchanged from comparison. No acute fracture or dislocation. IMPRESSION: 1. No acute fracture or dislocation. 2. Stable postoperative findings as above. ACT 112: Negative or not required by law. The above report was generated using voice recognition software. It may contain grammatical, syntax o r spelling errors. Electronically signed by: Renan Campos M.D. 09/02/2020 11:16 AM
--- NOTE | 2020-09-02 11:21 | Electrocardiogram Report ---
Test Reason : Blood Pressure : / mmHG Vent. Rate : 104 BPM Atrial Rate : 104 BPM P-R Int : 144 ms QRS Dur : 088 ms QT Int : 384 ms P-R-T Axes : 072 058 002 degrees QTc Int : 504 ms Poor data quality, interpretation may be adversely affected Sinus tachycardia Low voltage QRS Abnormal ECG When compared with ECG of 21-JUN-2020 06:09, Premature supraventricular complexes are no longer Present Confirmed by Vargas Webber ([id number]) on 09/02/2020 11:21:14 AM Referred By: REFERRED SELF Confirmed By:Vargas Webber
--- NOTE | 2020-09-02 11:21 | XRay Report ---
XR ribs RT min 2V w CXR1V HISTORY: 60 years-old Female fall, R sided chest wall bruising acute right-sided chest pain status p ost fall COMPARISON: Chest radiograph March 16, 2020 TECHNIQUE: PA view the chest with 5 views the right ribs FINDINGS: Postoperative changes of the right humerus redemonstrated. Cardiomediastinal and hilar silhouettes ar e within normal limits. There is no pneumothorax, pleural effusion, airspace consolidation or overt p ulmonary edema. Degenerative changes of the spine and left shoulder. There are acute fractures noted involving the lateral and anterior aspects of the right second through seventh ribs. There is mild di splacement of the second and seventh rib fractures. Cholecystectomy. Upper abdominal herniorrhaphy ashanti rodriguez. IMPRESSION: 1. No acute cardiopulmonary abnormality. 2. Acute fractures of the lateral/anterolateral right second through seventh ribs, some fractures dem onstrating mild displacement. 3. No pneumothorax. ACT 112: Negative or not required by law. The above report was generated using voice recognition software. It may contain grammatical, syntax o r spelling errors. Electronically signed by: Renan Campos M.D. 09/02/2020 11:20 AM
--- NOTE | 2020-09-02 11:26 | XRay Report ---
XR hip RT 2V w pelvis HISTORY: 60 years-old Female fall, R leg pain acute pelvic and right-sided hip pain status post fall COMPARISON: CT abdomen pelvis 03/19/2020 TECHNIQUE: AP view of the pelvis with 2 views the right hip FINDINGS: Demineralized appearance the bones. Moderate osteoarthritis of the bilateral femoral acetabular joint s. Ill-defined lucency involving the superior lateral right acetabulum. Soft tissues are unremarkable . No definite acute fracture or subluxation. IMPRESSION: Ill-defined linear lucency involving the superior lateral right acetabulum is favored to represent trabecular markings, however a subtle acute nondisplaced fracture could appear similarly. ACT 112: Negative or not required by law. The above report was generated using voice recognition software. It may contain grammatical, syntax o r spelling errors. Electronically signed by: Renan Campos M.D. 09/02/2020 11:24 AM
[2020-09-02] MEDS ORDERED: POTASSIUM CHLORIDE CRTAB 20 MEQ TABCR PO STA (11:35)
[2020-09-02] MEDS ORDERED: SODIUM CHLORIDE 0.9% 1000ML 1,000 ML IV ONE (11:35)
[2020-09-02 11:48] LABS: Appearance Urine Clear (Clear); Bilirubin Urine Negative (Negative); Blood Urine Negative (Negative); Color Urine Yellow; Glucose Urine UA Negative (Negative); Ketones Urine Negative (Negative); Leukocyte Esterase Urine 1+ (Negative); Nitrite Urine Negative (Negative); Protein Urine Negative (Negative); Specific Gravity Urine 1.009 (1.000-1.030); Urobilinogen Urine Negative (Negative)
[2020-09-02 11:56] LABS: Bacteria Urine Automated 2+ (Negative); RBC Urine Automated 0-4 /hpf (0-4)
--- NOTE | 2020-09-02 12:48 | History & Physical Report ---
Date of Service September 02, 2020 Assessment & Plan (1) Acute right hip pain: History of mechanical fall about 1 week ago Ongoing pain in the right hip with decreasing ambulation and remains almost bedbound for the last day or [address] scan of the right hip to rule out any fracture May need Ortho evaluation History of paroxysmal atrial fibrillation and was on Coumadin before Coumadin has been taken off since her last admission due to risk of fall and risk of bleeding EKG remains in sinus rhythm Will not restart anticoagulation on discharge (2) Ambulatory dysfunction: Secondary to increasing pain in the right lower extremity (3) Fracture of rib of right side: Has fracture of the anterolateral ribs on the right side from - Nondisplaced and no pneumo and or hemothorax Continue with pain medications Incentive spirometry (4) Status post fall: Mechanical fall about 1 week ago without any loss of consciousness Will need PT and OT evaluation (5) Cirrhosis: History of Tsai/alcoholic cirrhosis with history of encephalopathy No evidence of hepatic encephalopathy during this admission She has been moving her bowels about 2 times a day Continue rifaximin and lactulose. (6) CKD (chronic kidney disease) stage 3, GFR 30-59 ml/min: Has acute on chronic kidney disease Ferritin is 2.47 today with increasing BUN Has been on Lasix and torsemide as an outpatient We will hold Lasix and torsemide for now and gave her cautious amount of intravenous fluid Monitor PRP Hypokalemia Likely secondary to use of diuretics We will supplement and recheck potassium (7) Hypothyroidism: Continue replacement (8) Depression: Continue current medication DVT prophylaxis Subcu heparin CODE STATUS Full History of Present Illness Chief Complaint: Increasing pain in the right hip, difficulty in ambulation with history of fall 1 week ago. 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 She has had a mechanical fall about 1 week ago injuring his right side of the body mostly right lower extremity. He has had x-ray of the hip done as an outpatient which she was told that did not show any fracture. She has been complaining of increasing pain in the right hip since the fall and the pain has been so worse that today he called 911 as she was unable to move around and unable to get up from the bed due to pain in the right hip. She denies any recent fever and/or chills, any cough or phlegm or shortness of breath, any confusion and/or disorientation, any abdominal pain, nausea and/or vomiting. She denies any problem with the urine and she has been moving her bowels about 2 times a day even with her lactulose. In the ER she was hemodynamically stable and was noted to have right-sided rib fracture from - and possible right superior lateral acetabular fracture. She was admitted to medical telemetry unit for continuation of care. Allergies Allergy/AdvReac Type Severity Reaction Status Date / Time cefaclor Allergy Intermediate Swelling Verified 09/02/20 09:04 oxycodone Allergy Intermediate HIVES Verified 09/02/20 09:04 amoxicillin Allergy Mild Nausea Verified 09/02/20 09:04 ceftriaxone [From Rocephin] Allergy Rash Verified 09/02/20 09:04 metronidazole [From Flagyl] Allergy Rash Verified 09/02/20 09:04 Home Medications Home Medications Medication Instructions Recorded Confirmed Type cyanocobalamin (vitamin B-12) 1,000 mcg PO QAM 08/22/18 09/02/20 History [Vitamin B-12] levothyroxine [Synthroid] 75 mcg PO DAILY@0700 08/22/18 09/02/20 History multivitamin 1 tab PO QAM 08/22/18 09/02/20 History sucralfate [Carafate] 1 g PO BID 08/22/18 09/02/20 History Xifaxan 550 mg PO BID 10/03/18 09/02/20 History cholecalciferol (vitamin D3) 2,000 unit PO QAM 10/03/18 09/02/20 History [Vitamin D3] duloxetine [Cymbalta] 60 mg PO QAM 07/19/19 09/02/20 History lactulose [Generlac] 30 ml PO DAILY PRN 07/19/19 09/02/20 History pantoprazole [Protonix] 40 mg PO QAM 07/19/19 09/02/20 History cetirizine [Zyrtec] 10 mg PO DAILY@1200 06/04/20 11/01/20 History torsemide 60 mg PO DAILY@1200 06/16/20 09/02/20 History gabapentin 300 mg PO BID #60 cap 06/23/20 09/02/20 Rx L.acidoph,saliva-B.bif-S.therm 1 cap PO TID 09/02/20 09/02/20 History [Acidophilus Probiotic Blend] amitriptyline 50 mg PO HS 09/02/20 09/02/20 History cyclobenzaprine 10 mg PO Q8H PRN 09/02/20 09/02/20 History duloxetine 30 mg PO DAILY@1600 09/02/20 09/02/20 History ferrous sulfate 325 mg PO QAM 09/02/20 09/02/20 History furosemide 40 mg PO QAM 09/02/20 09/02/20 History ibuprofen 800 mg PO Q8H PRN 09/02/20 09/02/20 History lidocaine [Lidocare] 1 patch TOPICAL DAILY PRN 09/02/20 09/02/20 History melatonin 6 mg PO HS PRN 09/02/20 09/02/20 History potassium chloride 10 meq PO BID 09/02/20 09/02/20 History propranolol 10 mg PO Q8H PRN 09/02/20 09/02/20 History Past Med/Surg History Medical History (Updated 09/02/20 @ 12:42 by Malissa Foley MD) REJI (acute kidney injury) Anemia, iron deficiency Ascites Cirrhosis CKD (chronic kidney disease) stage 3, GFR 30-59 ml/min Depression Gastric peptic ulcer Hypothyroidism Neuropathy of both feet On anticoagulant therapy warfarin daily Surgical History History of arthrodesis left leg History of arthroplasty of right shoulder unable to lift arm after sx History of arthroscopy of left knee x2 History of arthroscopy of right knee x7 History of cardiac cath 2011--no stents History of cholecystectomy History of colonoscopy History of esophagogastroduodenoscopy (EGD) History of gastric bypass History of open reduction and internal fixation (ORIF) procedure left tib/fib fx--hardware in place History of surgery on extremity 2016--right leg hardware in place per pt a "fusion of her leg" History of tooth extraction all teeth removed History of total right knee replacement (TKR) 2006 Family History Sister Breast cancer Mother Hypertension Diabetes Other No family history of adverse response to anesthesia Social History Smoking Status: Never smoker Second Hand Exposure: No; Hx Alcohol Use: No Hx Substance Use: No Preferred Language: Bahraini Communication Ability: Effective Director Of Event Management Required: No Beliefs That Will Affect Care: None Current Living Situation: Alone Other Information That Helps Us Care for You: No Feels Safe at Home: Yes Safety Concerns: Feels Safe At This Time Assistive Devices: Denture - Upper, Denture - Lower, Glasses and Walker Review of Systems Review of Systems: All systems reviewed & are unremarkable except as noted in HPI & below Physical Exam Physical Exam: Lying in bed with distress due to pain in the right lower extremity with any movement Constitutional: well developed, well nourished, + acute distress (Due to pain in right lower extremity and right hip), + ill appearing and + obese Eyes: PERRL, conjunctivae normal, anicteric sclerae ENMT: external ear and nose normal, oropharynx normal Neck: trachea midline, no thyromegaly Respiratory: no respiratory distress Auscultation: + diminished lung sounds; no crackles and no wheezes Cardiovascular: Rate/Rhythm: regular rate and regular rhythm Heart Sounds: no murmur Extremities: + edema (Bilateral leg edema 1+ on the left side and 2+ on the right side) Gastrointestinal (Abdomen): Inspection/Auscultation: normal bowel sounds; abdomen not distended Percussion/Palpation: abdomen soft; abdomen nontender Musculoskeletal: Extremities: + lower extremity abnormal to inspection (Edematous right lower extremity.tenderness right hip ant with decreased ROM) Right Hip: + limited ROM of hip (Very limited movement of the right hip joint due to extreme pain) and + joint line tenderness (Very tender anterior hip joint area) Knee: + limited ROM of knee (Inability to bend right knee with tenderness posteriorly-ongoing) Neurologic: not confused Motor/Sensory: no tremor Psychiatric: A+Ox3, euthymic affect Lymphatic: no cervical or axillary lymphadenopathy Results & Data Results & Data ([facility]) Vital Signs (Past 12 Hours) Vital Signs Temp Pulse Resp BP Pulse Ox 09/02/20 09:04 100 09/02/20 08:53 36.5 C 102 H 20 136/87 100 Laboratory Results Short CBC 09/02/20 Range/Units 09:28 WBC 3.45 L (4.8-10.8) K/uL Hgb 9.7 L (12.0-16.0) g/dL Hct 27.9 L (37-47) % Plt Count 248 (130-400) K/uL BMP 09/02/20 09:28 Sodium 133 L Potassium 2.8 L Chloride 101 Carbon Dioxide 19 L BUN 41 H Creatinine 2.47 H Glucose 114 H Calcium 8.7 Liver Function 09/02/20 Range/Units 09:28 Total Bilirubin 0.4 (0.2-1) mg/dl AST 33 (15-37) U/L ALT 20 (12-78) U/L Alkaline Phosphatase 239 H (45-117) U/L Albumin 2.6 L (3.4-5.0) gm/dl Urine 09/02/20 Range/Units 11:30 Urine Color Yellow Urine Appearance Clear (Clear) Urine pH 5.0 (4.5-7.5) Ur Specific [place] 1.009 (1.000-1.030) Urine Protein Negative (Negative) Urine Glucose (UA) Negative (Negative) Medications Administered Current Inpatient Medications Fentanyl Citrate (Fentanyl Citrate 100 Mcg/2 Ml Vial) 25 mcg IV NOW PRN PRN Reason: Pain Stop: 09/16/20 10:17 Last Admin: 09/02/20 10:32 Dose: 25 mcg Documented by: Fentanyl Citrate (Fentanyl Citrate 100 Mcg/2 Ml Vial) 25 mcg IV Q1H PRN PRN Reason: Pain Stop: 09/16/20 11:33 Last Admin: 09/02/20 12:13 Dose: 25 mcg Documented by: (1) Cirrhosis Ascites presence: with ascites Hepatic cirrhosis type: unspecified hepatic cirrhosis Qualified Code(s): K74.60 - Unspecified cirrhosis of liver; R18.8 - Other ascites
--- NOTE | 2020-09-02 13:06 | CT Scan Report ---
CT hip RT wo con HISTORY: 60 years-old Female r/o acetabular fracture acute right-sided hip pain with possible acetab ular fracture COMPARISON: Pelvis and right hip radiographs of same day, CT abdomen and pelvis 03/19/2020 TECHNIQUE: Multiple axial CT images of the right hip were obtained without the use of IV contrast. A dose lowering technique was used consistent with the principals of ALARA. FINDINGS: Demineralized appearance of the bones. There is an acute minimally comminuted fracture noted involvin g the anterior superior margin of the acetabulum with fracture fragments demonstrating lateral displa cement measuring up to 4 mm. The largest fracture fragment measures 8 mm transversely and 2.5 cm in A P dimension. The degree of bone demineralization has progressively worsened from 03/19/2020. There is mild irregularity of the superior and medial femoral head. No acute femoral head fracture or femoral acetabular dislocation identified. No additional acute femoral fracture identified. Minimal cortical irregularity of the lateral femoral head neck junction. Moderate osteoarthritis of the femoral acetab ular joints. There is new mild AVN changes of the femoral head No acute process of the imaged intrapelvic structures. Moderate diffuse subcutaneous edema. Enlarged right inguinal chain lymph node, 2.3 x 1.4 cm. There is edema/hemorrhage noted posterior to the right acetabulum and within the ischiofemoral space. Moderate muscular atrophy. IMPRESSION: 1. Acute comminuted fracture involves the anterosuperior acetabulum with minimal lateral displacement . 2. Demineralized appearance of the bones has progressively worsened from 03/19/2020. Additionally, the re there are new mild AVN changes of the femoral head with new cortical irregularity/erosion of the m edial femoral head. Correlate clinically to exclude erosive arthropathy. 3. Minimal cortical irregularity of the lateral femoral head neck junction without discrete fracture identified. ACT 112: Negative or not required by law. The above report was generated using voice recognition software. It may contain grammatical, syntax o r spelling errors. Electronically signed by: Renan Campos M.D. 09/02/2020 1:05 PM
[2020-09-02] MEDS ORDERED: PROPRANOLOL HCL 10 MG TAB PO PRN (14:26)
[2020-09-02] MEDS ORDERED: MELATONIN 3 MG TAB PO PRN (14:26)
[2020-09-02] MEDS ORDERED: LACTULOSE SYRUP 20 GM/30 ML UDC PO PRN (14:36)
[2020-09-02] MEDS ORDERED: LIDOCAINE 5% 1 PATCH TD PRN (14:47)
[2020-09-02] MEDS: DULoxetine HCL 30 MG CAP PO SCH (15:17)
[2020-09-02] MEDS: POTASSIUM CHLORIDE 10 MEQ TABCR PO SCH ×2 (15:17→20:16)
--- NOTE | 2020-09-02 16:22 | Ultrasound Report ---
BILATERAL LOWER EXTREMITY VENOUS DOPPLER HISTORY: Acute pain and swelling of the lower extremities r/o DVT COMPARISON STUDY: None. FINDINGS: There is normal compressibility, flow, and augmentation within the bilateral lower extremit y deep venous systems. The right popliteal vein was not diagnostically evaluated secondary to patient reported pain and tenderness. Note is made of subcutaneous edema. IMPRESSION: No DVT within the right or left lower extremity. ACT 112: Negative or not required by law. Electronically signed by: Renan Campos M.D. 09/02/2020 4:21 PM
[2020-09-02] MEDS: HYDROmorphone INJ 0.5 MG/0.5 ML SYR IV PRN ×2 (16:35→22:17)
[2020-09-02] MEDS ORDERED: METOPROLOL TARTRATE 25 MG TAB PO STA (19:49)
[2020-09-02] MEDS: SUCRALFATE 1 GM TAB PO SCH (20:15)
[2020-09-02] MEDS: AMITRIPTYLINE HCL 50 MG TAB PO SCH (20:15)
[2020-09-02] MEDS: rifAXIMin 550 MG TABLET PO SCH (20:16)
[2020-09-02] MEDS: GABAPENTIN 300 MG CAP PO SCH (20:17)
[2020-09-02] MEDS: HEPARIN SOD 5,000 UNIT/0.5 ML VIAL SQ SCH (20:21)
[2020-09-03] MEDS: HYDROmorphone INJ 0.5 MG/0.5 ML SYR IV PRN ×4 (02:06→21:28)
[2020-09-03 06:18] LABS: Basophils # (auto) 0.04 K/uL (0-0.2); Basophils % (auto) 1.1 %; Eosinophils # (auto) 0.28 K/uL (0-0.5); Hematocrit (blood only) 28.6 % (37-47); Hemoglobin 9.6 g/dL (12.0-16.0); Immature Granulocytes # (auto) 0.01 K/uL (0.00-0.02); Immature Granulocytes % (auto) 0.3 %; Lymphocytes # (auto) 1.64 K/uL (1.2-3.4); Lymphocytes % (auto) 46.7 %; Mean Corpuscular Hemoglobin 29.9 pg (25-34); Mean Corpuscular Hgb Conc 33.6 g/dL (32-36); Mean Corpuscular Volume 89.1 fL (80-100); Mean Platelet Volume 10.2 fL (7.4-10.4); Monocytes % (auto) 8.5 %; Neutrophils # (auto) 1.24 K/uL (1.4-6.5); Neutrophils % (auto) 35.4 %; Platelet Count 182 K/uL (130-400); RDW Coefficient of Variation 15.4 % (11.5-14.5); RDW Standard Deviation 50.1 fL (36.4-46.3); Red Blood Count 3.21 M/uL (4.2-5.4); White Blood Count 3.51 K/uL (4.8-10.8)
[2020-09-03 06:52] LABS: BUN Creatinine Ratio 16.2 (10-20); Calcium 8.3 mg/dl (8.5-10.1); Creatinine Clr Calc Pharmacy 34.7 ml/min; Est GFR (African American) 29.5; Est GFR (Non-African American) 25.5; Magnesium 1.9 mg/dl (1.8-2.4)
[2020-09-03] MEDS: LEVOTHYROXINE SODIUM 75 MCG TABLET PO SCH (07:46)
[2020-09-03] MEDS ORDERED: POTASSIUM CITRATE 10 MEQ TAB PO STA (08:35)
[2020-09-03] MEDS: GABAPENTIN 300 MG CAP PO SCH ×2 (09:27→20:03)
[2020-09-03] MEDS: HEPARIN SOD 5,000 UNIT/0.5 ML VIAL SQ SCH ×2 (09:27→20:03)
[2020-09-03] MEDS: POTASSIUM CHLORIDE 10 MEQ TABCR PO SCH ×2 (09:27→20:03)
[2020-09-03] MEDS: PANTOprazole 40 MG TAB PO SCH (09:27)
[2020-09-03] MEDS: DULoxetine HCL 60 MG CAP PO SCH (09:27)
[2020-09-03] MEDS: SUCRALFATE 1 GM TAB PO SCH ×2 (09:27→20:02)
[2020-09-03] MEDS: ADVANCED PROBIOTIC 1250 MG CAPSULE PO SCH (09:27)
[2020-09-03] MEDS: FERROUS SULFATE 325 MG TAB PO SCH (09:27)
[2020-09-03] MEDS: CYANOCOBALAMIN 500 MCG TABLET (VITAMIN B-12) PO SCH (09:27)
[2020-09-03] MEDS: MULTIVITAMIN TAB PO SCH (09:27)
[2020-09-03] MEDS: CHOLECALCIFEROL 1,000 UNITS 25 MCG TAB PO SCH (09:27)
[2020-09-03] MEDS: rifAXIMin 550 MG TABLET PO SCH ×2 (09:28→20:03)
[2020-09-03] MEDS ORDERED: HYDROmorphone INJ 0.5 MG/0.5 ML SYR IV PRN (10:10)
--- NOTE | 2020-09-03 10:10 | Hospitalist Progress Note ---
Date of Service September 03, 2020 Assessment & Plan (1) Acute right hip pain: Secondary to acute comminuted fracture of anterosuperior acetabulum with minimal lateral displacement Get ortho evaluation Pain control. Minimize opioid use. Fentanyl discontinued. patient uses hydromorphone at home. PDMP reviewed Filled 75 tabs of hydromorphone 2mg on 07/15/20 Will get PT eval after ortho eval (2) Ambulatory dysfunction: Manage fracture as above PT/OT eval (3) Fracture of rib of right side: Has fracture of the anterolateral ribs on the right side from - Nondisplaced and no pneumo and or hemothorax Continue with pain medications Incentive spirometry (4) Status post fall: (5) Cirrhosis: History of Tsai/alcoholic cirrhosis with history of encephalopathy No evidence of hepatic encephalopathy during this admission She has been moving her bowels about 2 times a day Continue rifaximin and lactulose to ensure 3-4 daily BM (6) CKD (chronic kidney disease) stage 3, GFR 30-59 ml/min: Has acute on chronic kidney disease Cr was 2.47 with increasing BUN Per admitting provider, patient has been on Lasix and torsemide as an outpatient Outpatient GI and PCP note only show torsemide 60mg daily Continue to hold diuretics for now Cr improved to 2.09 today Limit fluid intake. Compression stocks Hypokalemia Likely secondary to use of diuretics Continue to replete and monitor (7) Hypothyroidism: TSH elevated at 5.5 but was within normal range 2 months ago unclear if this may be due to adherence Ft4 is within normal 1.33 Continue current dose of levothyroxine. PCP to recheck in 6-8 weeks (8) Depression: Continue current medication DVT prophylaxis Subcu heparin CODE STATUS Full Admission and Anticipated Discharge Date Admission Date: September 02, 2020 Subjective Patient seen and examined Reports only right hip pain, worse with movement Has chronic leg edema Reports she lives alone and uses a walker. Described fall about a week ago as mechanical Denied any chest pain, SOB Denied any cough, palpitations, dizziness Denied any fevers, chills, nausea, vomiting Denied any abd pain, constipation, diarrhea Physical Exam Constitutional: + well hydrated; no acute distress Eyes: PERRL, conjunctivae normal, anicteric sclerae ENMT: external ear and nose normal, oropharynx normal Respiratory: normal respiratory effort, lungs clear to auscultation Cardiovascular: Rate/Rhythm: regular rate and regular rhythm S1 S2 Gastrointestinal (Abdomen): normal bowel sounds, soft, nontender, no hepatosplenomegaly Musculoskeletal: Bilateral LE edema (R>>L) Not able to flex right knee (stated this is chronic, will not allow passive ROM of right knee due to pain) Tenderness over right hip Neurologic: PERRL, EOMI, accommodation nl, no face palsy, no dysarthria Psychiatric: A+Ox3, euthymic affect Results & Data Results & Data ([facility]) Vital Signs (Past 12 Hours) Vital Signs Temp Pulse Pulse Resp BP Pulse Ox 09/03/20 07:26 36.5 C 76 18 136/76 98 09/03/20 02:48 36.5 C 80 18 100/68 92 09/02/20 23:19 84 09/02/20 22:21 36.4 C L 87 18 131/85 99 Laboratory Results Laboratory Results - last 24 hr 09/02/20 09/02/20 09/02/20 09:28 09:28 11:30 WBC RBC Hgb Hct MCV MCH MCHC RDW Std Deviation RDW Coeff of Jake Plt Count MPV Immature Gran % (Auto) Neut % (Auto) Lymph % (Auto) [place] % (Auto) Eos % (Auto) Baso % (Auto) Neut # (Auto) Lymph # (Auto) [place] # (Auto) Eos # (Auto) Baso # (Auto) Immature Gran # (Auto) PT 11.4 INR 1.1 APTT 33.0 H PTT Ratio 1.2 Sodium Potassium Chloride Carbon Dioxide Anion Gap BUN Creatinine Est Cr Clr Drug Dosing Est GFR ( Amer) Est GFR (Non-Af Amer) BUN/Creatinine Ratio Glucose Calcium Phosphorus Magnesium Total Bilirubin 0.4 Alkaline Phosphatase 239 H Total Protein 6.0 L Globulin 3.4 Albumin/Globulin Ratio 0.8 L TSH 5.520 H Free T4 1.33 Urine Color Yellow Urine Appearance Clear Urine pH 5.0 Ur Specific [place] 1.009 Urine Protein Negative Urine Glucose (UA) Negative Urine Ketones Negative Urine Blood Negative Urine Nitrite Negative Urine Bilirubin Negative Urine Urobilinogen Negative Ur Leukocyte Esterase 1+ H Urine WBC (Auto) 5-10 H Urine RBC (Auto) 0-4 U Hyaline Cast (Auto) 1-5 U Epithel Cells (Auto) 10-20 H Urine Bacteria (Auto) 2+ H 09/03/20 09/03/20 09/03/20 05:52 05:52 05:52 WBC 3.51 L RBC 3.21 L Hgb 9.6 L Hct 28.6 L MCV 89.1 MCH 29.9 MCHC 33.6 RDW Std Deviation 50.1 H RDW Coeff of Jake 15.4 H Plt Count 182 MPV 10.2 Immature Gran % (Auto) 0.3 Neut % (Auto) 35.4 Lymph % (Auto) 46.7 [place] % (Auto) 8.5 Eos % (Auto) 8.0 Baso % (Auto) 1.1 Neut # (Auto) 1.24 L Lymph # (Auto) 1.64 [place] # (Auto) 0.30 Eos # (Auto) 0.28 Baso # (Auto) 0.04 Immature Gran # (Auto) 0.01 PT INR APTT PTT Ratio Sodium 138 Potassium 3.0 L Chloride 109 H Carbon Dioxide 20 L Anion Gap 9.0 BUN 34 H Creatinine 2.09 H D Est Cr Clr Drug Dosing 34.7 Est GFR ( Amer) 29.5 Est GFR (Non-Af Amer) 25.5 BUN/Creatinine Ratio 16.2 Glucose 96 Calcium 8.3 L Phosphorus 4.6 Magnesium 1.9 Total Bilirubin Alkaline Phosphatase Total Protein Globulin Albumin/Globulin Ratio TSH Free T4 Urine Color Urine Appearance Urine pH Ur Specific [place] Urine Protein Urine Glucose (UA) Urine Ketones Urine Blood Urine Nitrite Urine Bilirubin Urine Urobilinogen Ur Leukocyte Esterase Urine WBC (Auto) Urine RBC (Auto) U Hyaline Cast (Auto) U Epithel Cells (Auto) Urine Bacteria (Auto) Diagnostic Findings HIP CT Demineralized appearance of the bones. There is an acute minimally comminuted fracture noted involving the anterior superior margin of the acetabulum with fracture fragments demonstrating lateral displacement measuring up to 4 mm. The largest fracture fragment measures 8 mm transversely and 2.5 cm in AP dimension. The degree of bone demineralization has progressively worsened from 03/19/2020. There is mild irregularity of the superior and medial femoral head. No acute femoral head fracture or femoral acetabular dislocation identified. No additional acute femoral fracture identified. Minimal cortical irregularity of the lateral femoral head neck junction. 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 There is new mild AVN changes of the femoral head No acute process of the imaged intrapelvic structures. Moderate diffuse subcutaneous edema. Enlarged right inguinal chain lymph node, 2.3 x 1.4 cm. There is edema/hemorrhage noted posterior to the right acetabulum and within the ischiofemoral space. Moderate muscular atrophy. IMPRESSION: 1. Acute comminuted fracture involves the anterosuperior acetabulum with minimal lateral displacement. 2. Demineralized appearance of the bones has progressively worsened from 03/19/2020. Additionally, there there are new mild AVN changes of the femoral head with new cortical irregularity/erosion of the medial femoral head. Correlate clinically to exclude erosive arthropathy. 3. Minimal cortical irregularity of the lateral femoral head neck junction without discrete fracture identified. (1) Cirrhosis Ascites presence: with ascites Hepatic cirrhosis type: unspecified hepatic cirrhosis Qualified Code(s): K74.60 - Unspecified cirrhosis of liver; R18.8 - Other ascites
[2020-09-03] MEDS: CETIRIZINE HCL 10 MG TABLET PO SCH (11:37)
[2020-09-03] MEDS: traMADol HCL 50 MG TABLET PO PRN ×2 (12:59→19:54)
--- NOTE | 2020-09-03 13:03 | Orthopedic Consultation ---
Date of Consultation September 03, 2020 Assessment & Plan (1) Closed right acetabular fracture: Minimally displaced superior lateral acetabular fracture, no surgical indications at this time, maintain nonweightbearing right lower extremity, will need DVT prophylaxis currently on heparin, will defer to med team, consideration for Lovenox. PT/OT. Patient does follow-up with [facility] orthopedics for her right knee and may certainly follow-up with them for her right hip or with [facility], . Patient will need repeat x-rays in 2 weeks. Thank you for the consultation. History of Present Illness Reason for Consultation: Right acetabular fracture Attending Physician: Micki Schumacher MD History of Present Illness The patient is a 60-year-old female who presents with complaints for 1 week of right hip pain. Reports a fall onto her right hip when she tripped over her walker. Has prior surgical history for explant of right total knee arthroplasty and static antibiotic cement spacer which was done at [facility]. Patient was to have revision right total knee arthroplasty earlier in the year but COVID-19 delayed her surgery. Patient reports difficulty ambulating x1 week, patient seen at [facility] and CT scan showed a minimally displaced superior lateral acetabular fracture. Patient denies any numbness or tingling to her right lower extremity. We are consulted to care for her fracture. Allergies Allergy/AdvReac Type Severity Reaction Status Date / Time cefaclor Allergy Intermediate Swelling Verified 09/02/20 09:04 oxycodone Allergy Intermediate HIVES Verified 09/02/20 09:04 amoxicillin Allergy Mild Nausea Verified 09/02/20 09:04 ceftriaxone [From Rocephin] Allergy Rash Verified 09/02/20 09:04 metronidazole [From Flagyl] Allergy Rash Verified 09/02/20 09:04 Home Medications Home Medications Medication Instructions Recorded Confirmed Type cyanocobalamin (vitamin B-12) 1,000 mcg PO QAM 08/22/18 09/02/20 History [Vitamin B-12] levothyroxine [Synthroid] 75 mcg PO DAILY@0700 08/22/18 09/02/20 History multivitamin 1 tab PO QAM 08/22/18 09/02/20 History sucralfate [Carafate] 1 g PO BID 08/22/18 09/02/20 History Xifaxan 550 mg PO BID 10/03/18 09/02/20 History cholecalciferol (vitamin D3) 2,000 unit PO QAM 10/03/18 09/02/20 History [Vitamin D3] duloxetine [Cymbalta] 60 mg PO QAM 07/19/19 09/02/20 History lactulose [Generlac] 30 ml PO DAILY PRN 07/19/19 09/02/20 History pantoprazole [Protonix] 40 mg PO QAM 07/19/19 09/02/20 History cetirizine [Zyrtec] 10 mg PO DAILY@1200 04/05/20 09/02/20 History torsemide 60 mg PO DAILY@1200 06/16/20 09/02/20 History gabapentin 300 mg PO BID #60 cap 06/23/20 09/02/20 Rx L.acidoph,saliva-B.bif-S.therm 1 cap PO TID 09/02/20 09/02/20 History [Acidophilus Probiotic Blend] amitriptyline 50 mg PO HS 09/02/20 09/02/20 History cyclobenzaprine 10 mg PO Q8H PRN 09/02/20 09/02/20 History duloxetine 30 mg PO DAILY@1600 09/02/20 09/02/20 History ferrous sulfate 325 mg PO QAM 09/02/20 09/02/20 History furosemide 40 mg PO QAM 09/02/20 09/02/20 History ibuprofen 800 mg PO Q8H PRN 09/02/20 09/02/20 History lidocaine [Lidocare] 1 patch TOPICAL DAILY PRN 09/02/20 09/02/20 History melatonin 6 mg PO HS PRN 09/02/20 09/02/20 History potassium chloride 10 meq PO BID 09/02/20 09/02/20 History propranolol 10 mg PO Q8H PRN 09/02/20 09/02/20 History Patient History Medical History REJI (acute kidney injury) Anemia, iron deficiency Ascites Cirrhosis CKD (chronic kidney disease) stage 3, GFR 30-59 ml/min Depression Gastric peptic ulcer Hypothyroidism Neuropathy of both feet On anticoagulant therapy warfarin daily Surgical History History of arthrodesis left leg History of arthroplasty of right shoulder unable to lift arm after sx History of arthroscopy of left knee x2 History of arthroscopy of right knee x7 History of cardiac cath 2011--no stents History of cholecystectomy History of colonoscopy History of esophagogastroduodenoscopy (EGD) History of gastric bypass History of open reduction and internal fixation (ORIF) procedure left tib/fib fx--hardware in place History of surgery on extremity 2017--right leg hardware in place per pt a "fusion of her leg" History of tooth extraction all teeth removed History of total right knee replacement (TKR) 2006 Family History Sister Breast cancer Mother Hypertension Diabetes Other No family history of adverse response to anesthesia Social History Smoking Status: Never smoker Second Hand Exposure: No; Hx Alcohol Use: No Hx Substance Use: No Preferred Language: Kinyarwanda Communication Ability: Effective Route Jumper Required: No Beliefs That Will Affect Care: None Current Living Situation: Alone Other Information That Helps Us Care for You: No Feels Safe at Home: Yes Safety Concerns: Feels Safe At This Time Assistive Devices: Cane Review of Systems Review of Systems: All systems reviewed & are unremarkable except as noted in HPI & below Constitutional: as per Subjective / HPI Physical Exam Physical Exam: Right lower extremity is neurovascular and sensory intact grossly, limited range of motion secondary to pain. Skin overlying right hip is clean dry and intact, compartments are soft nontender. Constitutional: WD/WN, vitals as above Results & Data ([place]) Vital Signs (Past 12 Hours) Vital Signs Temp Pulse Pulse Resp BP Pulse Ox 09/03/20 11:15 36.3 C L 76 18 120/75 98 09/03/20 10:23 78 09/03/20 07:26 36.5 C 76 18 136/76 98 09/03/20 02:48 36.5 C 80 18 100/[address] hip RT wo con HISTORY: 60 years-old Female r/o acetabular fracture acute right-sided hip pain with possible acetabular fracture COMPARISON: Pelvis and right hip radiographs of same day, CT abdomen and pelvis 03/19/2020 TECHNIQUE: Multiple axial CT images of the right hip were obtained without the use of IV contrast. A dose lowering technique was used consistent with the principals of ALARA. FINDINGS: Demineralized appearance of the bones. There is an acute minimally comminuted fracture noted involving the anterior superior margin of the acetabulum with fracture fragments demonstrating lateral displacement measuring up to 4 mm. The largest fracture fragment measures 8 mm transversely and 2.5 cm in AP dimension. The degree of bone demineralization has progressively worsened from 03/19/2020. There is mild irregularity of the superior and medial femoral head. No acute femoral head fracture or femoral acetabular dislocation identified. No additional acute femoral fracture identified. Minimal cortical irregularity of the lateral femoral head neck junction. 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 There is new mild AVN changes of the femoral head No acute process of the imaged intrapelvic structures. Moderate diffuse subcutaneous edema. Enlarged right inguinal chain lymph node, 2.3 x 1.4 cm. There is edema/hemorrhage noted posterior to the right acetabulum and within the ischiofemoral space. Moderate muscular atrophy. IMPRESSION: 1. Acute comminuted fracture involves the anterosuperior acetabulum with minimal lateral displacement. 2. Demineralized appearance of the bones has progressively worsened from 03/19/2020. Additionally, there there are new mild AVN changes of the femoral head with new cortical irregularity/erosion of the medial femoral head. Correlate clinically to exclude erosive arthropathy. 3. Minimal cortical irregularity of the lateral femoral head neck junction without discrete fracture identified
[2020-09-03] MEDS: DULoxetine HCL 30 MG CAP PO SCH (15:52)
[2020-09-03] MEDS: CYCLOBENZAPRINE HCL 10 MG TAB PO PRN (19:56)
[2020-09-03] MEDS: AMITRIPTYLINE HCL 50 MG TAB PO SCH (21:29)
[2020-09-04] MEDS ORDERED: METOPROLOL TARTRATE 1 MG/ML VIAL IV STA (00:21)
[2020-09-04] MEDS: HYDROmorphone INJ 0.5 MG/0.5 ML SYR IV PRN ×3 (05:43→19:08)
[2020-09-04] MEDS: LEVOTHYROXINE SODIUM 75 MCG TABLET PO SCH (06:09)
[2020-09-04] MEDS: traMADol HCL 50 MG TABLET PO PRN ×2 (07:10→16:25)
[2020-09-04 08:33] LABS: Hematocrit (blood only) 26.8 % (37-47); Hemoglobin 8.9 g/dL (12.0-16.0); Mean Corpuscular Hemoglobin 29.8 pg (25-34); Mean Corpuscular Hgb Conc 33.2 g/dL (32-36); Mean Corpuscular Volume 89.6 fL (80-100); Mean Platelet Volume 10.5 fL (7.4-10.4); Platelet Count 159 K/uL (130-400); RDW Coefficient of Variation 15.8 % (11.5-14.5); RDW Standard Deviation 52.1 fL (36.4-46.3); Red Blood Count 2.99 M/uL (4.2-5.4); White Blood Count 3.05 K/uL (4.8-10.8)
[2020-09-04] MEDS: POTASSIUM CHLORIDE 10 MEQ TABCR PO SCH ×2 (08:45→20:29)
[2020-09-04] MEDS: DULoxetine HCL 60 MG CAP PO SCH (08:45)
[2020-09-04] MEDS: SUCRALFATE 1 GM TAB PO SCH ×2 (08:45→20:26)
[2020-09-04] MEDS: MULTIVITAMIN TAB PO SCH (08:45)
[2020-09-04] MEDS: GABAPENTIN 300 MG CAP PO SCH ×2 (08:45→20:29)
[2020-09-04] MEDS: FERROUS SULFATE 325 MG TAB PO SCH (08:45)
[2020-09-04] MEDS: ADVANCED PROBIOTIC 1250 MG CAPSULE PO SCH (08:46)
[2020-09-04] MEDS: CHOLECALCIFEROL 1,000 UNITS 25 MCG TAB PO SCH (08:46)
[2020-09-04] MEDS: rifAXIMin 550 MG TABLET PO SCH ×2 (08:46→20:28)
[2020-09-04] MEDS: PANTOprazole 40 MG TAB PO SCH (08:46)
[2020-09-04] MEDS: CYANOCOBALAMIN 500 MCG TABLET (VITAMIN B-12) PO SCH (08:47)
[2020-09-04] MEDS: HEPARIN SOD 5,000 UNIT/0.5 ML VIAL SQ SCH ×2 (08:47→20:30)
[2020-09-04] MEDS ORDERED: HYDROmorphone INJ 0.5 MG/0.5 ML SYR IV STA (09:01)
[2020-09-04 09:04] LABS: BUN Creatinine Ratio 15.9 (10-20); Calcium 8.6 mg/dl (8.5-10.1); Est GFR (African American) 39.5; Est GFR (Non-African American) 34.1; Magnesium 1.9 mg/dl (1.8-2.4); Potassium 3.8 mmol/L (3.5-5.1)
--- NOTE | 2020-09-04 10:20 | Hospitalist Progress Note ---
Date of Service September 04, 2020 Assessment & Plan (1) Acute right hip pain: Secondary to acute comminuted fracture of anterosuperior acetabulum with minimal lateral displacement Pain control. Minimize opioid use as much as possible. PDMP reviewed yesterday Filled 75 tabs of hydromorphone 2mg on 07/15/20 Ortho evaluation noted. No surgical need Awaiting PT/OT eval (2) Ambulatory dysfunction: Manage fracture as above Awaiting PT/OT eval (3) Fracture of rib of right side: Has fracture of the anterolateral ribs on the right side from - Nondisplaced and no pneumo and or hemothorax Continue with pain medications Incentive spirometry (4) Status post fall: (5) Cirrhosis: History of Tsai/alcoholic cirrhosis with history of encephalopathy No evidence of hepatic encephalopathy during this admission She has been moving her bowels about 2 times a day Continue rifaximin and lactulose to ensure 3-4 daily BM Counselled patient on this especially with increased opioid pain due to fractures (6) CKD (chronic kidney disease) stage 3, GFR 30-59 ml/min: Has acute on chronic kidney disease Cr was 2.47 with increasing BUN Per admitting provider, patient has been on Lasix and torsemide as an outpatient Outpatient GI and PCP note only show torsemide 60mg daily Continue to hold diuretics for now. Plan to resume on discharge Cr improved to 1.64 today Limit fluid intake. Compression stocks Hypokalemia Likely secondary to use of diuretics Repleted (7) Hypothyroidism: TSH elevated at 5.5 but was within normal range 2 months ago unclear if this may be due to adherence Ft4 is within normal 1.33 Continue current dose of levothyroxine. PCP to recheck in 6-8 weeks (8) Depression: Continue current medication DVT prophylaxis Subcu heparin Dispo - Awaiting PT/OT eval for dispo. may need rehab CODE STATUS Full Admission and Anticipated Discharge Date Admission Date: September 02, 2020 Subjective Patient seen and examined Reports only right hip pain with activity Denied any other symptoms Reports leg edema improved with ROSA MARIA stockings Had 2 BM yesterday Physical Exam Constitutional: + well hydrated; no acute distress Eyes: PERRL, conjunctivae normal, anicteric sclerae ENMT: external ear and nose normal, oropharynx normal Respiratory: normal respiratory effort, lungs clear to auscultation Cardiovascular: Rate/Rhythm: regular rate and regular rhythm S1 S2 Gastrointestinal (Abdomen): normal bowel sounds, soft, nontender, no hepatosplenomegaly Musculoskeletal: Bilateral LE edema (much improved compared to yesterday, with ROSA MARIA stockings) Not able to flex right knee (stated this is chronic, will not allow passive ROM of right knee due to pain) Mild Tenderness over right hip Neurologic: PERRL, EOMI, accommodation nl, no face palsy, no dysarthria Psychiatric: A+Ox3, euthymic affect Results & Data Results & Data ([facility]) Vital Signs (Past 12 Hours) Vital Signs Temp Pulse Pulse Pulse Resp BP BP 09/04/20 07:53 36.5 C 92 H 20 132/79 09/04/20 07:11 96 H 09/04/20 03:33 36.7 C 98 H 18 125/77 09/04/20 00:41 135 H 123/78 09/04/20 00:39 135 H 123/78 09/03/20 22:47 89 Pulse Ox 09/04/20 07:53 99 09/04/20 07:11 09/04/20 03:33 93 09/04/20 00:41 09/04/20 00:39 09/03/20 22:47 Laboratory Results Laboratory Results - last 24 hr 09/03/20 09/04/20 09/04/20 11:39 08:10 08:10 WBC 3.05 L RBC 2.99 L Hgb 8.9 L Hct 26.8 L MCV 89.6 MCH 29.8 MCHC 33.2 RDW Std Deviation 52.1 H RDW Coeff of Jake 15.8 H Plt Count 159 MPV 10.5 H Sodium 141 Potassium 3.5 D 3.8 Chloride 112 H Carbon Dioxide 22 Anion Gap 7.0 BUN 26 H Creatinine 1.64 H D Est Cr Clr Drug Dosing 44.0 Est GFR ( Amer) 39.5 Est GFR (Non-Af Amer) 34.1 BUN/Creatinine Ratio 15.9 Glucose 99 Calcium 8.6 Magnesium 1.9 (1) Cirrhosis Ascites presence: with ascites Hepatic cirrhosis type: unspecified hepatic cirrhosis Qualified Code(s): K74.60 - Unspecified cirrhosis of liver; R18.8 - Other ascites
[2020-09-04] MEDS: CETIRIZINE HCL 10 MG TABLET PO SCH (12:22)
[2020-09-04] MEDS ORDERED: LACTULOSE SYRUP 20 GM/30 ML UDC PO PRN (12:33)
--- NOTE | 2020-09-04 12:48 | Electrocardiogram Report ---
Test Reason : Blood Pressure : / mmHG Vent. Rate : 097 BPM Atrial Rate : 097 BPM P-R Int : 138 ms QRS Dur : 096 ms QT Int : 358 ms P-R-T Axes : 038 036 005 degrees QTc Int : 454 ms Normal sinus rhythm Low voltage QRS Nonspecific T wave abnormality Abnormal ECG When compared with ECG of 02-SEP-2020 09:39, QT has shortened Confirmed by Gordy Hansen ([id number]) on 09/04/2020 12:47:58 PM Referred By: REFERRED SELF Confirmed By:Sorin Hansen
[2020-09-04] MEDS: CYCLOBENZAPRINE HCL 10 MG TAB PO PRN (13:46)
[2020-09-04] MEDS: DULoxetine HCL 30 MG CAP PO SCH (16:26)
[2020-09-04] MEDS ORDERED: METOPROLOL TARTRATE 25 MG TAB PO SCH (18:15)
[2020-09-04] MEDS ORDERED: METOPROLOL TARTRATE 50 MG TAB PO ONE (19:30)
[2020-09-04] MEDS: AMITRIPTYLINE HCL 50 MG TAB PO SCH (20:29)
[2020-09-05] MEDS: HYDROmorphone INJ 0.5 MG/0.5 ML SYR IV PRN ×2 (01:52→10:34)
[2020-09-05] MEDS: LEVOTHYROXINE SODIUM 75 MCG TABLET PO SCH (06:17)
[2020-09-05 06:53] LABS: Hematocrit (blood only) 25.9 % (37-47); Hemoglobin 8.5 g/dL (12.0-16.0); Mean Corpuscular Hemoglobin 29.6 pg (25-34); Mean Corpuscular Hgb Conc 32.8 g/dL (32-36); Mean Corpuscular Volume 90.2 fL (80-100); Mean Platelet Volume 10.9 fL (7.4-10.4); Platelet Count 142 K/uL (130-400); Red Blood Count 2.87 M/uL (4.2-5.4); White Blood Count 3.47 K/uL (4.8-10.8)
[2020-09-05 07:19] LABS: BUN Creatinine Ratio 15.3 (10-20); Calcium 8.5 mg/dl (8.5-10.1); Creatinine Clr Calc Pharmacy 50.4 ml/min; Est GFR (African American) 46.3; Est GFR (Non-African American) 39.9
[2020-09-05] MEDS: SUCRALFATE 1 GM TAB PO SCH (07:27)
[2020-09-05] MEDS: traMADol HCL 50 MG TABLET PO PRN ×2 (07:27→13:30)
[2020-09-05] MEDS: FERROUS SULFATE 325 MG TAB PO SCH (07:28)
[2020-09-05] MEDS: MULTIVITAMIN TAB PO SCH (07:28)
[2020-09-05] MEDS: ADVANCED PROBIOTIC 1250 MG CAPSULE PO SCH (07:28)
[2020-09-05] MEDS: DULoxetine HCL 60 MG CAP PO SCH (07:28)
[2020-09-05] MEDS: GABAPENTIN 300 MG CAP PO SCH (07:28)
[2020-09-05] MEDS: POTASSIUM CHLORIDE 10 MEQ TABCR PO SCH (07:28)
[2020-09-05] MEDS: PANTOprazole 40 MG TAB PO SCH (07:29)
[2020-09-05] MEDS: CYANOCOBALAMIN 500 MCG TABLET (VITAMIN B-12) PO SCH (07:29)
[2020-09-05] MEDS: CHOLECALCIFEROL 1,000 UNITS 25 MCG TAB PO SCH (07:29)
[2020-09-05] MEDS: rifAXIMin 550 MG TABLET PO SCH (07:29)
--- NOTE | 2020-09-05 09:49 | Hospitalist Progress Note ---
Date of Service September 05, 2020 Assessment & Plan (1) Acute right hip pain: Secondary to acute comminuted fracture of anterosuperior acetabulum with minimal lateral displacement Pain control. Minimize opioid use as much as possible. PDMP reviewed yesterday Filled 75 tabs of hydromorphone 2mg on 07/15/20. Pt states she takes twice a day. Ortho evaluation noted. No surgical intervention needed Will need follow up X-rays in 2 weeks and ortho follow up maintain nonweightbearing right lower extremity need DVT prophylaxis currently on heparin PT/OT eval (2) Ambulatory dysfunction: Manage fracture as above PT/OT eval - recommend rehab (3) Fracture of rib of right side: Has fracture of the anterolateral ribs on the right side from 2nd-7th Nondisplaced and no pneumo and or hemothorax Continue with pain medications Incentive spirometry (4) Status post fall: Mechanical fall about 1 week ago without any loss of consciousness PT and OT evaluation - recommend rehab (5) Cirrhosis: History of Tsai/alcoholic cirrhosis with history of encephalopathy No evidence of hepatic encephalopathy during this admission She has been moving her bowels about 2 times a day Continue rifaximin and lactulose to ensure 3-4 daily BM Counselled patient on this especially with increased opioid pain due to fra ctures (6) CKD (chronic kidney disease) stage 3, GFR 30-59 ml/min: Has acute on chronic kidney disease Cr was 2.47 with increasing BUN Per admitting provider and per patient, patient has been on Lasix and torsemide as an outpatient Outpatient GI and PCP note only show torsemide 60mg daily Continue to hold diuretics for now. Plan to resume on discharge Cr improved to 1.44 today Limit fluid intake. Compression stocks Hypokalemia Likely secondary to use of diuretics Repleted Now K 4.0 (7) Hypothyroidism: TSH elevated at 5.5 but was within normal range 2 months ago unclear if this may be due to adherence Ft4 is within normal 1.33 Continue current dose of levothyroxine. PCP to recheck in 6-8 weeks Asymptomatic bacteruria Patient denies all urinary symptoms Urine culture growing klebsiella Will not treat for now since patient has no symptoms (8) Depression: Continue current medication DVT prophylaxis: Subcu heparin Dispo - [facility] CODE STATUS: Full Admission and Anticipated Discharge Date Admission Date: September 02, 2020 Subjective Pt is laying in bed in NAD. No fever, chills, chest pain, shortness of breath. Denies abd. pain, nausea or vomiting. States she has chronic generalized "bone" pain. Does not report increased R hip pain. Review of Systems Review of Systems: All systems reviewed & are unremarkable except as noted in HPI & below Constitutional: no fever and no chills Respiratory: no cough and no dyspnea Cardiovascular: no chest pain and no palpitations Gastrointestinal: no abdominal pain, no nausea and no vomiting Integumentary: + generalized chronic "bone"pain Physical Exam Physical Exam: Constitutional: + well hydrated; no acute distress Eyes: PERRL, EOMI, conjunctivae normal, anicteric sclerae ENMT: external ear and nose normal, oropharynx normal Respiratory: normal respiratory effort, lungs clear to auscultation Cardiovascular: Rate/Rhythm: regular rate and regular rhythm S1 S2 Gastrointestinal (Abdomen): normal bowel sounds, soft, nontender Musculoskeletal: Bilateral LE edema (much improved, with ROSA MARIA stockings) Not able to flex right knee (stated this is chronic, will not allow passive ROM of right knee due to pain) Mild Tenderness over right hip, ecchymosis over R hip Neurologic: PERRL, EOMI, no face palsy, no dysarthria Psychiatric: A+Ox3, euthymic affect Results & Data Results & Data ([facility]) Vital Signs (Past 12 Hours) Vital Signs Temp Pulse Pulse Pulse Resp BP Pulse Ox 09/05/20 09:28 93 H 09/05/20 06:39 36.5 C 90 16 129/81 96 09/05/20 03:28 36.6 C 87 18 133/83 96 09/04/20 23:50 36.6 C 86 18 131/80 96 09/04/20 22:20 88 Laboratory Results 09/05/20 09/05/20 Range/Units 06:09 06:09 WBC 3.47 L (4.8-10.8) K/uL RBC 2.87 L (4.2-5.4) M/uL Hgb 8.5 L (12.0-16.0) g/dL Hct 25.9 L (37-47) % MCV 90.2 (80-100) fL MCH 29.6 (25-34) pg MCHC 32.8 (32-36) g/dL RDW Std Deviation 53.0 H (36.4-46.3) fL RDW Coeff of Jake 16.0 H (11.5-14.5) % Plt Count 142 (130-400) K/uL MPV 10.9 H (7.4-10.4) fL Sodium 140 (136-145) mmol/L Potassium 4.0 (3.5-5.1) mmol/L Chloride 112 H (98-107) mmol/L Carbon Dioxide 22 (21-32) mmol/L Anion Gap 7.0 (3-11) BUN 22 H (7-18) mg/dl Creatinine 1.44 H (0.6-1.2) mg/dl Est Cr Clr Drug Dosing 50.4 ml/min Est GFR ( Amer) 46.3 Est GFR (Non-Af Amer) 39.9 BUN/Creatinine Ratio 15.3 (10-20) Glucose 81 (70-99) mg/dl Calcium 8.5 (8.5-10.1) mg/dl Medications Administered Current Inpatient Medications Amitriptyline HCl (Amitriptyline Hcl 50 Mg Tab) 50 mg PO HS [facility] Stop: 10/02/20 20:59 Last Admin: 09/04/20 20:29 Dose: 50 mg Documented by: Cetirizine HCl (Cetirizine Hcl 10 Mg Tablet) 10 mg PO DAILY@1200 [facility] Stop: 10/03/20 11:59 Last Admin: 09/04/20 12:22 Dose: 10 mg Documented by: Cyanocobalamin (Cyanocobalamin 500 Mcg Tablet (Vitamin B-12)) [facility] Stop: 10/03/20 08:59 Last Admin: 09/05/20 07:29 Dose: 1,000 mcg Documented by: Cyclobenzaprine HCl (Cyclobenzaprine Hcl 10 Mg Tab) 10 mg PO Q8H PRN PRN Reason: Pain Stop: 10/02/20 14:41 Last Admin: 09/04/20 13:46 Dose: 10 mg Documented by: Duloxetine HCl (Duloxetine Hcl 30 Mg Cap) 30 mg PO DAILY@1600 [facility] Stop: 10/02/20 15:59 Last Admin: 09/04/20 16:26 Dose: 30 mg Documented by: Duloxetine HCl (Duloxetine Hcl 60 Mg Cap) 60 mg PO QAM [facility] Stop: 10/03/20 08:59 Last Admin: 09/05/20 07:28 Dose: 60 mg Documented by: Ferrous Sulfate (Ferrous Sulfate 325 Mg Tab) 325 mg PO QAM [facility] Stop: 10/03/20 08:59 Last Admin: 09/05/20 07:28 Dose: 325 mg Documented by: Gabapentin (Gabapentin 300 Mg Cap) 300 mg PO BID [facility] Stop: 10/02/20 20:59 Last Admin: 09/05/20 07:28 Dose: 300 mg Documented by: Heparin Sodium (Porcine) (Heparin Sod 5,000 Unit/0.5 Ml Vial) 5,000 units SQ Q12 [facility] Stop: 10/02/20 20:59 Last Admin: 09/04/20 20:30 Dose: 5,000 units Documented by: Hydromorphone HCl (Hydromorphone Inj 0.5 Mg/0.5 Ml Syr) 0.5 mg IV Q6H PRN PRN Reason: Severe Pain Stop: 09/16/20 12:50 Last Admin: 09/05/20 01:52 Dose: 0.5 mg Documented by: Lactobacillus Acidoph/Casei/Rhamnos (Advanced Probiotic 1250 Mg Capsule) 2 cap PO DAILY [facility] Stop: 10/03/20 08:59 Last Admin: 09/05/20 07:28 Dose: 2 cap Documented by: Lactulose (Lactulose Syrup 20 Gm/30 Ml Udc) 20 gm PO DAILY PRN PRN Reason: Constipation Stop: 10/04/20 12:32 Levothyroxine Sodium (Levothyroxine Sodium 75 Mcg Tablet) 75 mcg PO DAILY@0700 [facility] Stop: 10/03/20 06:59 Last Admin: 09/05/20 06:17 Dose: 75 mcg Documented by: Lidocaine (Lidocaine 5% 1 Patch) 1 patch TD DAILY PRN PRN Reason: Pain Stop: 10/02/20 14:46 Last Admin: 09/03/20 10:57 Dose: 1 patch Documented by: Melatonin (Melatonin 3 Mg Tab) 6 mg PO HS PRN PRN Reason: Sleep Stop: 10/02/20 14:25 Last Admin: 09/04/20 23:29 Dose: 6 mg Documented by: Multivitamins (Multivitamin Tab) 1 tab PO QAM [facility] Stop: 10/03/20 08:59 Last Admin: 09/05/20 07:28 Dose: 1 tab Documented by: Pantoprazole Sodium (Pantoprazole 40 Mg Tab) 40 mg PO QAM [facility] Stop: 10/03/20 08:59 Last Admin: 09/05/20 07:29 Dose: 40 mg Documented by: Potassium Chloride (Potassium Chloride 10 Meq Tabcr) 10 meq PO BID [facility] Stop: 10/02/20 14:25 Last Admin: 09/05/20 07:28 Dose: 10 meq Documented by: Propranolol HCl (Propranolol Hcl 10 Mg Tab) 10 mg PO Q8H PRN PRN Reason: Anxiety Stop: 10/02/20 14:25 Rifaximin (Rifaximin 550 Mg Tablet) 550 mg PO BID [facility] Stop: 10/02/20 20:59 Last Admin: 09/05/20 07:29 Dose: 550 mg Documented by: Sucralfate (Sucralfate 1 Gm Tab) 1 gm PO BID [facility] Stop: 10/02/20 20:59 Last Admin: 09/05/20 07:27 Dose: 1 gm Documented by: Tramadol HCl (Tramadol Hcl 50 Mg Tablet) 50 mg PO Q6H PRN PRN Reason: Moderate Pain Stop: 10/03/20 12:01 Last Admin: 09/05/20 07:27 Dose: 50 mg Documented by: Vitamin D (Cholecalciferol 1,000 Units 25 Mcg Tab) 2,000 units PO QAM [facility] Stop: 10/03/20 08:59 Last Admin: 09/05/20 07:29 Dose: 2,000 units Documented by: (1) Cirrhosis Ascites presence: with ascites Hepatic cirrhosis type: unspecified hepatic cirrhosis Qualified Code(s): K74.60 - Unspecified cirrhosis of liver; R18.8 - Other ascites
[2020-09-05] MEDS: CYCLOBENZAPRINE HCL 10 MG TAB PO PRN ×2 (09:51→15:55)
[2020-09-05] MEDS: HEPARIN SOD 5,000 UNIT/0.5 ML VIAL SQ SCH (09:51)
[2020-09-05] MEDS: CETIRIZINE HCL 10 MG TABLET PO SCH (12:52)
--- NOTE | 2020-09-05 13:03 | Discharge Summary ---
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 She has had a mechanical fall about 1 week ago injuring his right side of the body mostly right lower extremity. He has had x-ray of the hip done as an outpatient which she was told that did not show any fracture. She has been complaining of increasing pain in the right hip since the fall and the pain has been so worse that today he called 911 as she was unable to move around and unable to get up from the bed due to pain in the right hip. She denies any recent fever and/or chills, any cough or phlegm or shortness of breath, any confusion and/or disorientation, any abdominal pain, na usea and/or vomiting. She denies any problem with the urine and she has been moving her bowels about 2 times a day even with her lactulose. In the ER she was hemodynamically stable and was noted to have right-sided rib fracture from 2nd-7 and possible right superior lateral acetabular fracture. She was admitted to medical telemetry unit for continuation of care. Admission Exam Per Admitting Provider Physical Exam: Lying in bed with distress due to pain in the right lower extremity with any movement Constitutional: well developed, well nourished, + acute distress (Due to pain in right lower extremity and right hip), + ill appearing and + obese Eyes: PERRL, conjunctivae normal, anicteric sclerae ENMT: external ear and nose normal, oropharynx normal Neck: trachea midline, no thyromegaly Respiratory: no respiratory distress Auscultation: + diminished lung sounds; no crackles and no wheezes Cardiovascular: Rate/Rhythm: regular rate and regular rhythm Heart Sounds: no murmur Extremities: + edema (Bilateral leg edema 1+ on the left side and 2+ on the right side) Gastrointestinal (Abdomen): Inspection/Auscultation: normal bowel sounds; abdomen not distended Percussion/Palpation: abdomen soft; abdomen nontender Musculoskeletal: Extremities: + lower extremity abnormal to inspection (Edematous right lower extremity.tenderness right hip ant with decreased ROM) Right Hip: + limited ROM of hip (Very limited movement of the right hip joint due to extreme pain) and + joint line tenderness (Very tender anterior hip joint area) Knee: + limited ROM of knee (Inability to bend right knee with tenderness posteriorly-ongoing) Neurologic: not confused Motor/Sensory: no tremor Psychiatric: A+Ox3, euthymic affect Lymphatic: no cervical or axillary lymphadenopathy Principal Diagnosis Right acetabular fracture Rib fractures, right side Fall Discharge Exam Constitutional: + well hydrated; no acute distress Eyes: PERRL, EOMI, conjunctivae normal, anicteric sclerae ENMT: external ear and nose normal, oropharynx normal Respiratory: normal respiratory effort, lungs clear to auscultation Cardiovascular: Rate/Rhythm: regular rate and regular rhythm S1 S2 Gastrointestinal (Abdomen): normal bowel sounds, soft, nontender Musculoskeletal: Bilateral LE edema (much improved, with ROSA MARIA stockings) Not able to flex right knee (stated this is chronic, will not allow passive ROM of right knee due to pain) Mild Tenderness over right hip, ecchymosis over R hip Neurologic: PERRL, EOMI, no face palsy, no dysarthria Psychiatric: A+Ox3, euthymic affect Discharge Data Allergies Allergy/AdvReac Type Severity Reaction Status Date / Time cefaclor Allergy Intermediate Swelling Verified 09/02/20 09:04 oxycodone Allergy Intermediate HIVES Verified 09/02/20 09:04 amoxicillin Allergy Mild Nausea Verified 09/02/20 09:04 ceftriaxone [From Rocephin] Allergy Rash Verified 09/02/20 09:04 metronidazole [From Flagyl] Allergy Rash Verified 09/02/20 09:04 Consultations 09/02/20 11:44 ED Decision to Admit Stat 09/03/20 08:40 Consult Orthopedic Surgery Routine Ordered Studies 09/02/20 09:04 CT head/brain wo con Stat IMPRESSION: No acute intracranial abnormality. 09/02/20 12:16 CT hip RT wo con Urgent IMPRESSION: 1. Acute comminuted fracture involves the anterosuperior acetabulum with minimal lateral displacement. 2. Demineralized appearance of the bones has progressively worsened from 03/19/2020. Additionally, there there are new mild AVN changes of the femoral head with new cortical irregularity/erosion of the medial femoral head. Correlate clinically to exclude erosive arthropathy. 3. Minimal cortical irregularity of the lateral femoral head neck junction without discrete fracture identified. 09/02/20 12:48 US venous doppler LE BI Urgent IMPRESSION: No DVT within the right or left lower extremity. Hospital Course (1) Acute right hip pain: Secondary to acute comminuted fracture of anterosuperior acetabulum with minimal lateral displacement Pain control. Minimize opioid use as much as possible. PDMP reviewed yesterday Filled 75 tabs of hydromorphone 2mg on 07/15/20. Pt states she takes twice a day. Ortho evaluation noted. No surgical intervention needed Will need follow up X-rays in 2 weeks and ortho follow up maintain nonweightbearing right lower extremity need DVT prophylaxis currently on heparin PT/OT eval (2) Ambulatory dysfunction: Manage fracture as above PT/OT eval - recommend rehab (3) Fracture of rib of right side: Has fracture of the anterolateral ribs on the right side from 2nd-7th Nondisplaced and no pneumo and or hemothorax Continue with pain medications Incentive spirometry (4) Status post fall: Mechanical fall about 1 week ago without any loss of consciousness PT and OT evaluation - recommend rehab (5) Cirrhosis: History of Tsai/alcoholic cirrhosis with history of encephalopathy No evidence of hepatic encephalopathy during this admission She has been moving her bowels about 2 times a day Continue rifaximin and lactulose to ensure 3-4 daily BM Counselled patient on this especially with increased opioid pain due to fractures (6) CKD (chronic kidney disease) stage 3, GFR 30-59 ml/min: Has acute on chronic kidney disease Cr was 2.47 with increasing BUN Per admitting provider and per patient, patient has been on Lasix and torsemide as an outpatient Outpatient GI and PCP note only show torsemide 60mg daily Continue to hold diuretics for now. Plan to resume on discharge Cr improved to 1.44 today Limit fluid intake. Compression stocks Hypokalemia Likely secondary to use of diuretics Repleted Now K 4.0 (7) Hypothyroidism: TSH elevated at 5.5 but was within normal range 2 months ago unclear if this may be due to adherence Ft4 is within normal 1.33 Continue current dose of levothyroxine. PCP to recheck in 6-8 weeks Asymptomatic bacteruria Patient denies all urinary symptoms Urine culture growing klebsiella Will not treat for now since patient has no symptoms Episodes of tachycardia - possibly d/t pain - received metoprolol 12.5 mg yesterday - will continue daily - follow up with PCP (8) Depression: Continue current medication DVT prophylaxis: Subcu heparin Dispo - [facility] CODE STATUS: Full Total Time Total Time Spent Total Time Spent (In Minutes): 40 Total Time Includes: Examination of the Patient, Discharge Planning, Medication Reconciliation and Communication With Other Providers Discharge Plan Discharge Items Patient Disposition: Transfer Inpatient Rehab Fac Reason For Visit: RT HIP PAIN, FALL Discharge Diagnosis: Right acetabular fracture Fall Activity: As commented below Activity Comment: As recommended by PT, maintain nonweightbearing right lower extremity Weightbearing Comment: maintain nonweightbearing right lower extremity Non-emergency contact: Primary Care Provider and Surgeon Call non-emergency contact if: you have any medication questions and your symptoms worsen Follow-up/Referrals: Naresh Bro MD [Primary Care Provider] - (Date & Time 09/07/2020 3:00 PM Provider Naresh Bro MD [facility] ) Diet: Heart Healthy and Low Sodium (2gm) Fluids: 1500ml (6 cups) Addtl Attending Provider Instructions: Ms Ascencio. You came to the hospital complaining of worsening right hip pain after recent fall. You were evaluated and found to have right acetabular fracture. You did not require surgery You are being discharged to [facility] It is very important that you follow Physical therapist instructions and follow up with Orthopedic in the office. Please continue to take your medications as prescribed and ensure 3 bowel movements per day. It was a pleasure taking care of you. Addtl Giving Officer Provider Instructions: Per Orthopedics: maintain nonweightbearing right lower extremity need DVT prophylaxis currently on heparin PT/OT Patient does follow-up with [facility] orthopedics for her right knee and may certainly follow-up with them for her right hip or with [place] [facility], . Patient will need repeat x-rays in 2 weeks. For pain use lidocaine patch. Tramadol can also be used. At home you can use home dilaudid. In the meantime, if your pain is not controlled with tramadol and lidocaine patch and other medications, occasional dilaudid can also be used. Pending Studies at Discharge: No Stand-Alone Forms: [facility] Skilled Items Patient informed of condition?: Yes DNR: No Discharge Level of Care: Acute rehab Communicable Disease: No Discharge Prognosis: Stable Lines: None Urinary Catheter: No Medications and DC Order Prescriptions: New tramadol 50 mg Tablet 50 mg PO Q6H PRN (Reason: pain) 10 Days Qty: 20 RF: 0 hydromorphone [Dilaudid] 2 mg tablet 1 mg PO Q6H PRN (Reason: pain) Qty: 10 RF: 0 heparin, porcine (PF) 5,000 unit/0.5 mL Syringe 5,000 unit subcut Q12 14 Days Qty: 14 RF: 0 metoprolol tartrate 25 mg Tablet 12.5 mg PO QAM 30 Days Qty: 15 RF: 0 Continued Xifaxan 550 mg tablet 550 mg PO BID RF: 0 cholecalciferol (vitamin D3) [Vitamin D3] 2,000 unit capsule 2,000 unit PO QAM RF: 0 pantoprazole [Protonix] 40 mg Tablet,Delayed Release (Dr/Ec) 40 mg PO QAM RF: 0 duloxetine [Cymbalta] 60 mg Capsule,Delayed Release(Dr/Ec) 60 mg PO QAM RF: 0 lactulose [Generlac] 10 gram/15 mL Solution 30 ml PO DAILY PRN (Reason: Constipation) RF: 0 cetirizine [Zyrtec] 10 mg tablet 10 mg PO DAILY@1200 RF: 0 cyclobenzaprine 10 mg tablet 10 mg PO Q8H PRN (Reason: Pain) RF: 0 furosemide 40 mg tablet 40 mg PO QAM RF: 0 potassium chloride 10 mEq capsule, extended release 10 meq PO BID RF: 0 lidocaine [Lidocare] 4 % Adhesive Patch,Medicated 1 patch TOPICAL DAILY PRN (Reason: Pain) RF: 0 melatonin 3 mg Tablet 6 mg PO HS PRN (Reason: Sleep) RF: 0 amitriptyline 50 mg tablet 50 mg PO HS RF: 0 propranolol 10 mg tablet 10 mg PO Q8H PRN (Reason: Anxiety) RF: 0 ferrous sulfate 325 mg (65 mg iron) tablet 325 mg PO QAM RF: 0 ibuprofen 400 mg tablet 800 mg PO Q8H PRN (Reason: Pain) RF: 0 duloxetine 30 mg capsule,delayed release(DR/EC) 30 mg PO DAILY@1600 RF: 0 L.acidoph,saliva-B.bif-S.therm [Acidophilus Probiotic Blend] 175 mg Capsule 1 cap PO TID RF: 0 multivitamin Tablet 1 tab PO QAM RF: 0 sucralfate [Carafate] 1 gram Tablet 1 g PO BID RF: 0 cyanocobalamin (vitamin B-12) [Vitamin B-12] 1,000 mcg Tablet 1,000 mcg PO QAM RF: 0 levothyroxine [Synthroid] 75 mcg Tablet 75 mcg PO DAILY@0700 RF: 0 torsemide 20 mg tablet 60 mg PO DAILY@1200 RF: 0 gabapentin 300 mg Capsule 300 mg PO BID Qty: 60 RF: 0 Discharge Orders: Discharge Order (Routine); Ordered 09/05/20 Ordered By: Lauro Romero Admission Data Admit Date/Time: 09/02/20 12:56 Attending Provider: Lauro Romero Admit Provider: Malissa Foley Primary Care Provider: Naresh Bro Other Providers: Malissa Foley ; Dave Anand ; [facility]ls[facility] ; Micki Schumacher I.
[2020-09-05] MEDS ORDERED: METOPROLOL TARTRATE 25 MG TAB PO SCH (13:15)
[2020-09-05] MEDS: DULoxetine HCL 30 MG CAP PO SCH (15:55)
== END 2020-09-05 17:51 | DRG 536 ==
LOC: ED 08:47 → SUATTDRO 12:56 → 2N 12:56

== ENCOUNTER 2020-11-25 10:47 | Inpatient (IN) ==
[2020-11-25] MEDS ORDERED: HYDROmorphone HCL 2 MG TAB PO STA (11:07)
--- NOTE | 2020-11-25 11:15 | Emergency Department Note ---
Impression & Plan Closed fracture of head of right femur ED Provider Note CHIEF COMPLAINT: Right hip pain HISTORY OF PRESENTING ILLNESS: This is a 60-year-old female who presents to the emergency department via EMS with complaint of right hip pain that has been getting progressively worse over the past 4 days after a fall. The patient states that she lost her balance while standing up out of her chair and fell over onto her right side and hip. She denies any her head and denies any other injuries. She states initially she did not have that much pain, but the hip has been getting more and more painful since that time and now she is having difficulty walking because of the pain. She notes that she broke her right hip about 3 months ago, she did not have surgery and was in a wheelchair for 6 weeks while the hip healed and she states her orthopedic surgeon told her she can now walk with a walker with 50% weight on the leg. She states she has been doing well with this up until the fall 4 days ago. She notes that she has neuropathy in her feet and also is on hydromorphone for chronic pain. She also mentions that she has been taking tramadol for pain as well. She states she did not take anything today, when asked about this she states that she is all out of her hydromorphone and did not have time to go refill it yet. She states "cannot you just give me a shot in my butt and make this pain all go away?" She denies headache, neck pain, chest pain or chest tightness, shortness of breath, abdominal pain, back pain, new numbness/tingling in the legs, new weakness in the legs, saddle numbness, or new bowel or bladder dysfunction. She does have a history of some urinary incontinence at baseline. REVIEW OF SYSTEMS: A complete 10 point review of systems was reviewed with the patient with pertinent positives and negatives as per history of present illness. All else were negative. PAST MEDICAL HISTORY: Depression, CKD stage III, hypothyroidism, chronic pain syndrome, peptic ulcer disease, history of right hip fracture SOCIAL HISTORY: Lives at home alone, denies tobacco use ALLERGIES: Reviewed in chart and with the patient PHYSICAL EXAM: CONSTITUTIONAL: Pleasant and cooperative. Nontoxic-appearing and in no acute distress, but appears uncomfortable from pain. Appears anxious and tearful on exam. HEENT: Normocephalic, atraumatic. NECK: Supple, full active range of motion without discomfort. No midline tenderness to palpation of the cervical spine. RESPIRATORY: Clear to auscultation bilaterally with no wheezing, crackles, rhonchi or stridor. Equal expansion bilaterally. CARDIOVASCULAR: Regular rate and rhythm with no murmurs, rubs or gallops. Normal peripheral perfusion. No edema. GASTROINTESTINAL: Soft, nontender to palpation throughout, nondistended. No palpable masses or HSM. Bowel sounds present in all quadrants. MUSCULOSKELETAL: Tenderness to palpation over the posterior and lateral right hip as well as the lumbosacral region. No tenderness to palpation over the hip joint. Increased pain with attempts to perform range of motion of the right hip joint, the patient resist this during exam. No tenderness to palpation throughout the right knee, ankle, or foot. The foot is warm and well perfused with 2+ dorsalis pedis and posterior tibialis pulses and brisk capillary refill. No pelvic instability with rocking or compression. INTEGUMENTARY: No rash or other significant dermatologic conditions noted. NEUROLOGIC: Alert and oriented X 4 with normal affect. Normal sensation to light touch in all 4 extremities. 5/5 strength in all 4 extremities, dorsiflexion and plantarflexion intact and equal bilaterally. ED COURSE AND MEDICAL DECISION MAKING: CC: Patient presenting with complaint of right hip pain DIFFERENTIAL DIAGNOSIS: Includes, but not limited to hip contusion, hematoma, fracture, dislocation, sprain/strain, lumbar spine injury, radiculopathy, vertebral fracture, herniated disc, among others. IMAGING: CT SCAN OF THE LUMBAR SPINE WITHOUT IV CONTRAST CLINICAL HISTORY: Fall. Low back pain. COMPARISON STUDY: Abdominal CT dated 03/19/2020. TECHNIQUE: CT scan of the lumbar spine is performed from the lower thoracic spine to the sacrum. Images are reviewed in the axial, sagittal, and coronal planes. IV contrast was not administered for this examination. A dose lowering technique was utilized adhering to the principles of ALARA. FINDINGS: The skeletal structures are osteopenic. There is no evidence of acute fracture or malalignment involving the lumbar spine. There is a mild chronic superior endplate compression deformity of L1. Vertebral body height is otherwise maintained throughout the lumbar spine. There is minimal anterolisthesis at L3-L4. Alignment is otherwise preserved. The transverse and spinous processes are intact. There is no spondylolysis. No lytic or blastic lesion is seen. Small anterior and lateral marginal osteophytes are seen throughout. Mild facet arthropathy is noted in the lower lumbar region. Moderate to advanced degenerative disc space narrowing is seen at L3-L4. Mild disc space narrowing is seen at the remaining lumbar levels. Small posterior disc osteophyte complexes are seen at L2-L3, L3-L4, and L4-L5. There is no CT evidence of high-grade central canal stenosis. Right lateral disc bulge at L4-L5 contributes to significant right-sided subarticular stenosis at this level. The visualized sacrum and bony pelvis appear intact. The paraspinous soft tissues are normal as imaged noting fatty atrophy of the paraspinous musculature. There is a small hiatal hernia with postoperative change seen involving the stomach. No retroperitoneal adenopathy is identified. There is asymmetric atrophy of the right psoas musculature as compared to the left. Extensive pancreatic parenchymal calcifications is consistent with chronic pancreatitis. IMPRESSION: 1. No acute bony abnormality is seen involving the lumbar spine. 2. Osteopenia and spondylotic change as above. 3. A mild chronic compression deformity of L1 is unchanged from previous. 4. Additional findings as above. ----- CT SCAN OF THE PELVIS WITHOUT IV CONTRAST; CT SCAN OF THE RIGHT FEMUR WITHOUT IV CONTRAST CLINICAL HISTORY: Fall with right hip pain. COMPARISON STUDY: Pelvic CT dated 03/19/2020. CT scan of the right hip dated 09/02/2020. TECHNIQUE: CT scan of the bony pelvis is performed from the pelvic inlet to the proximal femora. Additionally, CT scan of the right femur is performed from the bony pelvis to the proximal tibia and fibula. Images for both examinations are reviewed in the axial, sagittal, and coronal planes. IV contrast was not administered for this examination. A dose lowering technique was utilized adhering to the principles of ALARA. 3-D reformats of the femoral CT are created and assessed. CT DOSE: 1934.61 mGy.cm FINDINGS: The skeletal structures are osteopenic. No acute fracture is seen involving the sacrum or bony pelvis. The left proximal femur is intact and without evidence of avascular necrosis. There is a subacute/healing fracture of the anterosuperior right acetabulum, which was acute on 09/02/2020. 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 Fragmentation is new from previous and may be on a posttraumatic basis. No additional findings are concerning for right femoral fracture. There is postoperative change from fusion of the right knee joint. An intramedullary nail transfixes the knee joint. The orthopedic hardware is intact. Bony overgrowth is seen along the medial tibial plateau and cement fills the joint space. Moderate degenerative joint space narrowing is seen in the left hip. Advanced degenerati ve joint space narrowing is seen in the right hip. A right hip joint effusion has increased from the 09/02/2020 examination and contains a small calcified joint body. The bladder, uterus, and adnexa are normal as imaged. No free air or free fluid is seen in the pelvis. The visualized loops of small bowel and colon are normal in caliber without evidence of obstruction. There is no pelvic sidewall or inguinal lymphadenopathy. There is generalized atrophy of the pelvic musculature. There is also atrophy of the right thigh musculature. No soft tissue injury hematoma is identified. IMPRESSION: 1. No acute fracture is seen involving the sacrum and bony pelvis. 2. There is a subacute/healing fracture involving the anterosuperior right acetabulum. 3. Again seen is evidence of avascular necrosis of the right femoral head. There is subchondral collapse and fragmentation of the right femoral head which is new from 09/02/2020. This is likely related to avascular necrosis; however, acute posttraumatic change is not excluded. 4. No additional findings are concerning for acute right femoral fracture. 5. There is postoperative change from fusion of the right knee joint. The orthopedic hardware appears intact. 6. Right hip joint effusion with calcified joint bodies. 7. Additional findings as above. MEDICATION RECONCILIATION: I attest that I have personally reviewed the patient's current medication list. INITIAL VITAL SIGNS REVIEW: I reviewed the patient's initial vital signs and interpret them as follows: T: Afebrile; BP: Hypertensive; HR: Within normal limits; RR: Within normal limits; Pulse Ox: Within normal limits on room air. MDM SUMMARY: Patient was evaluated at bedside, history and physical exam performed. Patient is alert and oriented, in no acute distress, resting in the stretcher. She does seem anxious and becomes tearful several times during the history, but is easily distractible and answers questions appropriately. Patient is most tender with palpation along the lateral and posterior aspect of the right hip/buttock area. There is no tenderness to direct palpation over the right hip joint. No pelvic instability. She is neurovascularly intact. No red flags on exam or history concerning for spinal cord involvement. The patient does note that she is out of her hydromorphone, which she normally takes for her chronic pain. She relates that she did not have time yet to refill this medication, however on my review of the PDMP it does appear that she last refilled this for 75 tablets on 11/06/2020 and gets this monthly, it is too soon for her to refill her hydromorphone at this time. I offered the patient an injection of IM Toradol or a p.o. dose of her regularly prescribed hydromorphone, she requested the hydromorphone. Orders were placed for CT imaging of the lumbar spine, pelvis, and right femur to evaluate for trauma given her report of a recent fall and history of previous fracture. Patient discussed with Dr. Womack, who agrees with my assessment, plan, and disposition. CT imaging reviewed as above, noting a new fracture of the right femoral head, which I suspect is the cause of her increased pain. I spoke on the phone with Dr. Jones, who felt the patient should return to nonweightbearing status and she will most likely require rehab again. The patient does live alone and does not have anyone to help her, and she did not feel that she would be safe to go home. I spoke on the phone with Randa Ingram PA-C with the hospitalist team, who agrees to evaluate the patient for admission. Patient reassessed multiple times throughout ED stay, she has remained hemodynamically stable and her pain is somewhat improved with the hydromorphone, but she did request something additional for pain, she was given IM Toradol. The patient was updated on all results and plan for admission and most likely the need for rehab again, all questions were answered at this time to the best of my ability and the patient verbalized understanding and agreement to this plan. The patient was stable at time of admission. The chart was completed utilizing [employer] voice recognition software. Grammatical errors, random word insertions, pronoun errors, and incomplete sentences are an occasional consequence of this system due to software limitations, ambient noise, and hardware issues. Any formal questions or concerns about the content, text, or information contained within the body of this dictation should be directly addressed to the nurse practitioner for clarification. Past Med/Surg History Medical History REJI (acute kidney injury) Anemia, iron deficiency Ascites Cirrhosis CKD (chronic kidney disease) stage 3, GFR 30-59 ml/min Depression Gastric peptic ulcer Hypothyroidism Neuropathy of both feet On anticoagulant therapy warfarin daily Surgical History History of arthrodesis left leg History of arthroplasty of right shoulder unable to lift arm after sx History of arthroscopy of left knee x2 History of arthroscopy of right knee x7 History of cardiac cath 2011--no stents History of cholecystectomy History of colonoscopy History of esophagogastroduodenoscopy (EGD) History of gastric bypass History of open reduction and internal fixation (ORIF) procedure left tib/fib fx--hardware in place History of surgery on extremity 2017--right leg hardware in place per pt a "fusion of her leg" History of tooth extraction all teeth removed History of total right knee replacement (TKR) 2006 Family History Sister Breast cancer Mother Hypertension Diabetes Other No family history of adverse response to anesthesia Social History Smoking Status: Never smoker Second Hand Exposure: No; Hx Alcohol Use: No Hx Substance Use: No Preferred Language: Moldovan Communication Ability: Effective Senior Branch Manager Required: No Beliefs That Will Affect Care: None Current Living Situation: Alone Feels Safe at Home: Yes Assistive Devices: None Allergies Allergies Allergy/AdvReac Type Severity Reaction Status Date / Time cefaclor Allergy Intermediate Swelling Verified 11/25/20 12:25 oxycodone Allergy Intermediate HIVES Verified 11/25/20 12:25 amoxicillin Allergy Mild Nausea Verified 11/25/20 12:25 ceftriaxone [From Rocephin] Allergy Rash Verified 11/25/20 12:25 metronidazole [From Flagyl] Allergy Rash Verified 11/25/20 12:25 Home Meds Home Medications Medication Instructions Recorded Confirmed cyanocobalamin (vitamin B-12) 1,000 mcg PO QAM 08/22/18 11/25/20 [Vitamin B-12] multivitamin 1 tab PO QAM 08/22/18 11/25/20 Xifaxan 550 mg PO BID 10/03/18 11/25/20 cholecalciferol (vitamin D3) 4,000 unit PO QAM 10/03/18 11/25/20 [Vitamin D3] duloxetine [Cymbalta] 60 mg PO QAM 07/19/19 11/25/20 pantoprazole [Protonix] 40 mg PO BID 07/19/19 11/25/20 cetirizine [Zyrtec] 10 mg PO QAM 04/05/20 11/25/20 amitriptyline 50 mg PO HS 09/02/20 11/25/20 cyclobenzaprine 10 mg PO HS PRN 09/02/20 11/25/20 ferrous sulfate 220 mg PO DAILY 11/25/20 11/25/20 hydromorphone [Dilaudid] See Rx Instructions .ROUTE 11/25/20 11/25/20 .COMPLEX PRN lactulose 45 ml PO DAILY PRN 11/25/20 11/25/20 levothyroxine 75 mcg PO DAILY 11/25/20 11/25/20 magnesium oxide 400 mg PO DAILY 11/25/20 11/25/20 metoprolol tartrate 12.5 mg PO BID 11/25/20 11/25/20 potassium chloride 10 meq PO BID 11/25/20 11/25/20 sucralfate 1 g PO BID PRN 11/25/20 11/25/20 torsemide 20 mg PO DAILY 11/25/20 11/25/20 Previous Rx's Medication Instructions Recorded gabapentin 300 mg PO BID #60 cap 06/23/20 Results & Data (ED) Vital Signs Vital Signs - 24 hr 11/25/20 10:51 11/25/20 10:53 11/25/20 10:54 Temperature 36.5 C Temperature Source Oral Pulse Rate 93 H 95 H 93 H Pulse Rate from SpO2 Sensor 94 H 92 H Respiratory Rate 13 18 13 Blood Pressure 167/78 H 167/87 H Blood Pressure Mean 107 113 Pulse Oximetry 100 100 100 Oxygen Delivery Method Room Air Sepsis Recent Fever Within 48 Hours No Sepsis New/Unexplained Change in Mental Status No Sepsis Action Taken by Nursing No Action Required 11/25/20 11:00 11/25/20 11:10 11/25/20 11:35 Temperature Temperature Source Pulse Rate 98 H 92 H 100 H Pulse Rate from SpO2 Sensor 100 H 92 H Respiratory Rate 19 19 Blood Pressure Blood Pressure Mean Pulse Oximetry 100 99 Oxygen Delivery Method Sepsis Recent Fever Within 48 Hours Sepsis New/Unexplained Change in Mental Status Sepsis Action Taken by Nursing 11/25/20 11:36 11/25/20 11:40 11/25/20 11:50 Temperature Temperature Source Pulse Rate 93 H 86 90 Pulse Rate from SpO2 Sensor 94 H 87 91 H Respiratory Rate 15 20 19 Blood Pressure 154/102 H Blood Pressure Mean 119 Pulse Oximetry 100 98 99 Oxygen Delivery Method Sepsis Recent Fever Within 48 Hours Sepsis New/Unexplained Change in Mental Status Sepsis Action Taken by Nursing 11/25/20 12:00 11/25/20 12:10 11/25/20 12:20 Temperature Temperature Source Pulse Rate 90 88 91 H Pulse Rate from SpO2 Sensor 90 89 91 H Respiratory Rate 20 16 15 Blood Pressure Blood Pressure Mean Pulse Oximetry 100 100 100 Oxygen Delivery Method Sepsis Recent Fever Within 48 Hours Sepsis New/Unexplained Change in Mental Status Sepsis Action Taken by Nursing 11/25/20 12:30 11/25/20 12:40 11/25/20 12:50 Temperature Temperature Source Pulse Rate 87 86 89 Pulse Rate from SpO2 Sensor 87 87 89 Respiratory Rate 17 21 20 Blood Pressure 145/90 H Blood Pressure Mean 108 Pulse Oximetry 100 100 98 Oxygen Delivery Method Sepsis Recent Fever Within 48 Hours Sepsis New/Unexplained Change in Mental Status Sepsis Action Taken by Nursing 11/25/20 13:00 11/25/20 13:10 11/25/20 13:20 Temperature Temperature Source Pulse Rate 88 93 H 86 Pulse Rate from SpO2 Sensor 89 91 H 86 Respiratory Rate 15 18 20 Blood Pressure Blood Pressure Mean Pulse Oximetry 100 99 99 Oxygen Delivery Method Sepsis Recent Fever Within 48 Hours Sepsis New/Unexplained Change in Mental Status Sepsis Action Taken by Nursing 11/25/20 13:30 11/25/20 13:40 11/25/20 13:50 Temperature Temperature Source Pulse Rate 91 H 85 92 H Pulse Rate from SpO2 Sensor 91 H 85 92 H Respiratory Rate 21 21 18 Blood Pressure Blood Pressure Mean Pulse Oximetry 99 100 100 Oxygen Delivery Method Sepsis Recent Fever Within 48 Hours Sepsis New/Unexplained Change in Mental Status Sepsis Action Taken by Nursing 11/25/20 14:00 11/25/20 14:10 11/25/20 14:20 Temperature Temperature Source Pulse Rate 89 96 H 107 H Pulse Rate from SpO2 Sensor 89 98 H 105 H Respiratory Rate 15 19 21 Blood Pressure Blood Pressure Mean Pulse Oximetry 100 100 100 Oxygen Delivery Method Sepsis Recent Fever Within 48 Hours Sepsis New/Unexplained Change in Mental Status Sepsis Action Taken by Nursing Administered Medications Discontinued Medications Hydromorphone HCl (Hydromorphone Hcl 2 Mg Tab) 2 mg PO NOW STA Stop: 11/25/20 11:08 Last Admin: 11/25/20 11:14 Dose: 2 mg Documented by: [id number] Ketorolac Tromethamine (Ketorolac Tromethamine 60 Mg/2 Ml Vial) 60 mg IM NOW STA Stop: 11/25/20 14:16 Last Admin: 11/25/20 14:21 Dose: 60 mg Documented by: [id number] Discharge Plan Visit Data Chief Complaint: Leg Injury/Pain ED Provider: Real Womack ED Midlevel Provider: Clarisa De La Torre Discharge Problem: Closed fracture of head of right femur Patient Disposition: Admitted As Inpatient Condition: Good Forms Stand Alone Forms: [facility] Prescriptions Prescriptions: No Action Xifaxan 550 mg tablet 550 mg PO BID RF: 0 cholecalciferol (vitamin D3) [Vitamin D3] 2,000 unit capsule 4,000 unit PO QAM RF: 0 pantoprazole [Protonix] 40 mg Tablet,Delayed Release (Dr/Ec) 40 mg PO BID RF: 0 duloxetine [Cymbalta] 60 mg Capsule,Delayed Release(Dr/Ec) 60 mg PO QAM RF: 0 cetirizine [Zyrtec] 10 mg tablet 10 mg PO QAM RF: 0 cyclobenzaprine 10 mg tablet 10 mg PO HS PRN (Reason: Muscle Spasm) RF: 0 amitriptyline 50 mg tablet 50 mg PO HS RF: 0 multivitamin Tablet 1 tab PO QAM RF: 0 cyanocobalamin (vitamin B-12) [Vitamin B-12] 1,000 mcg Tablet 1,000 mcg PO QAM RF: 0 gabapentin 300 mg Capsule 300 mg PO BID Qty: 60 RF: 0 hydromorphone [Dilaudid] 2 mg tablet See Rx Instructions .ROUTE .COMPLEX PRN (Reason: Pain) RF: 0 potassium chloride 10 mEq capsule, extended release 10 meq PO BID RF: 0 torsemide 20 mg tablet 20 mg PO DAILY RF: 0 sucralfate 1 gram tablet 1 g PO BID PRN (Reason: Stomach Upset) RF: 0 metoprolol tartrate 25 mg tablet 12.5 mg PO BID RF: 0 magnesium oxide 400 mg magnesium Capsule 400 mg PO DAILY RF: 0 ferrous sulfate 220 mg (44 mg iron)/5 mL elixir 220 mg PO DAILY RF: 0 levothyroxine 75 mcg Tablet 75 mcg PO DAILY RF: 0 lactulose 10 gram/15 mL solution 45 ml PO DAILY PRN (Reason: Other) RF: 0 Referrals Referrals: Naresh Bro MD [Primary Care Provider] - Discharge Problem: Closed fracture of head of right femur Qualifiers: Encounter type: initial encounter Qualified Code(s): S72.051A - Unspecified fracture of head of right femur, initial encounter for closed fracture
--- NOTE | 2020-11-25 12:17 | CT Scan Report ---
CT SCAN OF THE PELVIS WITHOUT IV CONTRAST; CT SCAN OF THE RIGHT FEMUR WITHOUT IV CONTRAST CLINICAL HISTORY: Fall with right hip pain. COMPARISON STUDY: Pelvic CT dated 03/19/2020. CT scan of the right hip dated 09/02/2020. TECHNIQUE: CT scan of the bony pelvis is performed from the pelvic inlet to the proximal femora. Goldy tionally, CT scan of the right femur is performed from the bony pelvis to the proximal tibia and fibu la. Images for both examinations are reviewed in the axial, sagittal, and coronal planes. IV contrast was not administered for this examination. A dose lowering technique was utilized adhering to the pr inciples of KADEN. 3-D reformats of the femoral CT are created and assessed. CT DOSE: 1934.61 mGy.cm FINDINGS: The skeletal structures are osteopenic. No acute fracture is seen involving the sacrum or bony pelvis . The left proximal femur is intact and without evidence of avascular necrosis. There is a subacute/h ealing fracture of the anterosuperior right acetabulum, which was acute on 09/02/2020. There is avascu lar necrosis of the right femoral head with subchondral collapse and fragmentation. Fragmentation is new from previous and may be on a posttraumatic basis. No additional findings are concerning for righ t femoral fracture. There is postoperative change from fusion of the right knee joint. An intramedull kika nail transfixes the knee joint. The orthopedic hardware is intact. Bony overgrowth is seen along the medial tibial plateau and cement fills the joint space. Moderate degenerative joint space narrowi ng is seen in the left hip. Advanced degenerative joint space narrowing is seen in the right hip. A r ight hip joint effusion has increased from the 09/02/2020 examination and contains a small calcified j oint body. The bladder, uterus, and adnexa are normal as imaged. No free air or free fluid is seen in the pelvis . The visualized loops of small bowel and colon are normal in caliber without evidence of obstruction . There is no pelvic sidewall or inguinal lymphadenopathy. There is generalized atrophy of the pelvic musculature. There is also atrophy of the right thigh musculature. No soft tissue injury hematoma is identified. IMPRESSION: 1. No acute fracture is seen involving the sacrum and bony pelvis. 2. There is a subacute/healing fracture involving the anterosuperior right acetabulum. 3. Again seen is evidence of avascular necrosis of the right femoral head. There is subchondral colla pse and fragmentation of the right femoral head which is new from 09/02/2020. This is likely related t o avascular necrosis; however, acute posttraumatic change is not excluded. 4. No additional findings are concerning for acute right femoral fracture. 5. There is postoperative change from fusion of the right knee joint. The orthopedic hardware appears intact. 6. Right hip joint effusion with calcified joint bodies. 7. Additional findings as above. ACT 112: Positive. There are findings on this exam that require communication between the performing entity and the patient following Patient Test Result Information Act ([place] Act 112) guidelines. Electronically signed by: Oscar Rainey M.D. 11/25/2020 12:16 PM
--- NOTE | 2020-11-25 12:20 | CT Scan Report ---
CT SCAN OF THE LUMBAR SPINE WITHOUT IV CONTRAST CLINICAL HISTORY: Fall. Low back pain. COMPARISON STUDY: Abdominal CT dated 03/19/2020. TECHNIQUE: CT scan of the lumbar spine is performed from the lower thoracic spine to the sacrum. Imag es are reviewed in the axial, sagittal, and coronal planes. IV contrast was not administered for this examination. A dose lowering technique was utilized adhering to the principles of ALARA. FINDINGS: The skeletal structures are osteopenic. There is no evidence of acute fracture or malalignm ent involving the lumbar spine. There is a mild chronic superior endplate compression deformity of L1 . Vertebral body height is otherwise maintained throughout the lumbar spine. There is minimal anterol isthesis at L3-L4. Alignment is otherwise preserved. The transverse and spinous processes are intact. There is no spondylolysis. No lytic or blastic lesion is seen. Small anterior and lateral marginal o steophytes are seen throughout. Mild facet arthropathy is noted in the lower lumbar region. Moderate to advanced degenerative disc space narrowing is seen at L3-L4. Mild disc space narrowing is seen at the remaining lumbar levels. Small posterior disc osteophyte complexes are seen at L2-L3, L3-L4, and L4-L5. There is no CT evidence of high-grade central canal stenosis. Right lateral disc bulge at L4-L 5 contributes to significant right-sided subarticular stenosis at this level. The visualized sacrum a nd bony pelvis appear intact. The paraspinous soft tissues are normal as imaged noting fatty atrophy of the paraspinous musculature. There is a small hiatal hernia with postoperative change seen involvi ng the stomach. No retroperitoneal adenopathy is identified. There is asymmetric atrophy of the right psoas musculature as compared to the left. Extensive pancreatic parenchymal calcifications is consis tent with chronic pancreatitis. IMPRESSION: 1. No acute bony abnormality is seen involving the lumbar spine. 2. Osteopenia and spondylotic change as above. 3. A mild chronic compression deformity of L1 is unchanged from previous. 4. Additional findings as above. ACT 112: Negative or not required by law. Dictated: 11/25/2020 11:38 AM Transcribed: 11/25/2020 12:17 PM Sariah [id number] [facility] Electronically signed by: Oscar Rainey M.D. 11/25/2020 12:18 PM
[2020-11-25] MEDS ORDERED: KETOROLAC TROMETHAMINE 60 MG/2 ML VIAL IM STA (14:15)
--- NOTE | 2020-11-25 15:30 | History & Physical Report ---
Date of Service November 25, 2020 Assessment & Plan (1) Acute right hip pain: (2) Ambulatory dysfunction: Pt is 60 y/o F with PMH TSAI/Alcoholic cirrhosis, hypothyroidism, CKD III, depression, iron deficiency anemia presented to ER with c/o right hip pain. Patient with history of fall in 09/2020 resulting in closed right acetabular fractureRecently has been partial weightbearing. mechanical fall 4 days ago and progressive right hip pain and ambulatory dysfunction FEMUR CT/CT PELVIS: 1. No acute fracture is seen involving the sacrum and bony pelvis. 2. There is a subacute/healing fracture involving the anterosuperior right acetabulum. 3. Again seen is evidence of avascular necrosis of the right femoral head. There is subchondral collapse and fragmentation of the right femoral head which is new from 09/02/2020. This is likely related to avascular necrosis; however, acute posttraumatic change is not excluded. 4. No additional findings are concerning for acute right femoral fracture. 5. There is postoperative change from fusion of the right knee joint. The orthopedic hardware appears intact. 6. Right hip joint effusion with calcified joint bodies. L-SPINE CT: 1. No acute bony abnormality is seen involving the lumbar spine. 2. Osteopenia and spondylotic change as above. 3. A mild chronic compression deformity of L1 is unchanged from previous. -Continue home Dilaudid po use -Short term use of toradol -NPO midnight -Ortho consult. ER provider spoke to ortho and recommend non-weight bearing -If ortho would decide on a procedure, will need anesthesia consult and pre-op antibiotics ordered (3) Cirrhosis: TSAI/Alcoholic cirrhosis Last drink reported one week ago. No mental status change or volume overload at this time -Continue rifaximin, lactulose as needed, torsemide (4) CKD (chronic kidney disease) stage 3, GFR 30-59 ml/min: Cr: 0.97. At baseline Monitor renal functions, avoid nephrotoxic agents when possible (5) Hypothyroidism: Continue levothyroxine (6) Anemia, iron deficiency: Hgb:10. baseline in 9's -Continue iron supplement (7) Depression: -Continue duloxetine DVT Prophylaxis -SCDs Full Code as per discussion with pt Follows with Dr Bro for routine care Pt was seen and care coordinated with Dr Schumacher. See addendum History of Present Illness Chief Complaint: Right Hip pain Primary Care Provider: Naresh Bro MD Pt is 60 y/o F with PMH TSAI/Alcoholic cirrhosis, hypothyroidism, CKD III, depression, iron deficiency anemia presented to ER with c/o right hip pain. Patient with history of fall in 09/2020 resulting in closed right acetabular fracture, was hospitalized then discharged to rehab and then home. Patient states was initially nonweightbearing and recently has been partial weightbearing. She states 4 days ago she was trying to get up and lost balance and fell onto her right hip. Patient reports has had progressive right hip pain since fall and is now unable to ambulate. Denies hitting head, denies back pain. Denies any other injury. Denies extremity paresthesias. Reports last had couple of glasses of wine 1 week ago. Denies fever/chills, diaphoresis, N/V/D/C, TAVAREZ, dizziness, syncope, vision changes, neck pain, CP, SOB, orthopnea, palpitations, cough, sore throat, choking, otalgia, rhinorrhea, abdominal pain, extremity edema, rashes, urinary symptoms. Allergies Allergy/AdvReac Type Severity Reaction Status Date / Time cefaclor Allergy Intermediate Swelling Verified 11/25/20 12:25 oxycodone Allergy Intermediate HIVES Verified 11/25/20 12:25 amoxicillin Allergy Mild Nausea Verified 11/25/20 12:25 ceftriaxone [From Rocephin] Allergy Rash Verified 11/25/20 12:25 metronidazole [From Flagyl] Allergy Rash Verified 11/25/20 12:25 Home Medications Medication Instructions Recorded Confirmed Type cyanocobalamin (vitamin B-12) 1,000 mcg PO QAM 08/22/18 11/25/20 History [Vitamin B-12] multivitamin 1 tab PO QAM 08/22/18 11/25/20 History Xifaxan 550 mg PO BID 10/03/18 11/25/20 History cholecalciferol (vitamin D3) 4,000 unit PO QAM 10/03/18 11/25/20 History [Vitamin D3] duloxetine [Cymbalta] 60 mg PO QAM 07/19/19 11/25/20 History pantoprazole [Protonix] 40 mg PO BID 07/19/19 11/25/20 History cetirizine [Zyrtec] 10 mg PO QAM 04/05/20 11/25/20 History gabapentin 300 mg PO BID #60 cap 06/23/20 11/25/20 Rx amitriptyline 50 mg PO HS 09/02/20 11/25/20 History cyclobenzaprine 10 mg PO HS PRN 09/02/20 11/25/20 History ferrous sulfate 220 mg PO DAILY 11/25/20 11/25/20 History hydromorphone [Dilaudid] See Rx Instructions .ROUTE 11/25/20 11/25/20 History .COMPLEX PRN lactulose 45 ml PO DAILY PRN 11/25/20 11/25/20 History levothyroxine 75 mcg PO DAILY 11/25/20 11/25/20 History magnesium oxide 400 mg PO DAILY 11/25/20 11/25/20 History metoprolol tartrate 12.5 mg PO BID 11/25/20 11/25/20 History potassium chloride 10 meq PO BID 11/25/20 11/25/20 History sucralfate 1 g PO BID PRN 11/25/20 11/25/20 History torsemide 20 mg PO DAILY 11/25/20 11/25/20 History Past Med/Surg History Medical History REJI (acute kidney injury) Anemia, iron deficiency Ascites Cirrhosis CKD (chronic kidney disease) stage 3, GFR 30-59 ml/min Depression Gastric peptic ulcer Hypothyroidism Neuropathy of both feet On anticoagulant therapy warfarin daily Surgical History History of arthrodesis left leg History of arthroplasty of right shoulder unable to lift arm after sx History of arthroscopy of left knee x2 History of arthroscopy of right knee x7 History of cardiac cath 2011--no stents History of cholecystectomy History of colonoscopy History of esophagogastroduodenoscopy (EGD) History of gastric bypass History of open reduction and internal fixation (ORIF) procedure left tib/fib fx--hardware in place History of surgery on extremity 2017--right leg hardware in place per pt a "fusion of her leg" History of tooth extraction all teeth removed History of total right knee replacement (TKR) 2006 Family History Sister Breast cancer Mother Hypertension Diabetes Other No family history of adverse response to anesthesia Social History (Updated 11/25/20 @ 15:35 by Randa Ingram PA-C) Smoking Status: Never smoker Second Hand Exposure: No; Hx Alcohol Use: Yes Alcohol type: wine Alcohol Intake Frequency: 4 or More x per/Week Alcohol Intake Frequency Comment: Pt states now drinks approx twice a week Hx Substance Use: No Preferred Language: Palestinian Communication Ability: Effective 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 Beliefs That Will Affect Care: None Current Living Situation: Alone Feels Safe at Home: Yes Assistive Devices: None Review of Systems Review of Systems: All systems reviewed & are unremarkable except as noted in HPI & below Physical Exam Physical Exam: Per Dr Schumacher Results & Data Results & Data ([facility]) Vital Signs (Past 12 Hours) Vital Signs Temp Pulse Resp BP Pulse Ox 11/25/20 14:20 107 H 21 100 11/25/20 14:10 96 H 19 100 11/25/20 14:00 89 15 100 11/25/20 13:50 92 H 18 100 11/25/20 13:40 85 21 100 11/25/20 13:30 91 H 21 99 11/25/20 13:20 86 20 99 11/25/20 13:10 93 H 18 99 11/25/20 13:00 88 15 100 11/25/20 12:50 89 20 98 11/25/20 12:40 86 21 100 11/25/20 12:30 87 17 145/90 H 100 11/25/20 12:20 91 H 15 100 11/25/20 12:10 88 16 100 11/25/20 12:00 90 20 100 11/25/20 11:50 90 19 99 11/25/20 11:40 86 20 98 11/25/20 11:36 93 H 15 154/102 H 100 11/25/20 11:35 100 H 11/25/20 11:10 92 H 19 99 11/25/20 11:00 98 H 19 100 11/25/20 10:54 93 H 13 100 11/25/20 10:53 36.5 C 95 H 18 167/87 H 100 11/25/20 10:51 93 H 13 167/78 H 100 Laboratory Results Short CBC 11/25/20 11/25/20 Range/Units 15:44 15:44 WBC 4.21 L (4.8-10.8) K/uL Hgb 10.3 L (12.0-16.0) g/dL Hct 31.9 L (37-47) % Plt Count 216 (130-400) K/uL Creatinine 0.97 (0.6-1.2) mg/dl BMP 11/25/20 15:44 Sodium 137 Potassium 4.8 Chloride 105 Carbon Dioxide 23 BUN 10 Creatinine 0.97 Glucose 83 Calcium 9.3 Liver Function 11/25/20 Range/Units 15:44 Total Bilirubin 0.4 (0.2-1) mg/dl AST 29 (15-37) U/L ALT 29 (12-78) U/L Alkaline Phosphatase 208 H (45-117) U/L Albumin 3.1 L (3.4-5.0) gm/dl Diagnostic Findings FEMUR CT/CT PELVIS: IMPRESSION: 1. No acute fracture is seen involving the sacrum and bony pelvis. 2. There is a subacute/healing fracture involving the anterosuperior right acetabulum. 3. Again seen is evidence of avascular necrosis of the right femoral head. There is subchondral collapse and fragmentation of the right femoral head which is new from 09/02/2020. This is likely related to avascular necrosis; however, acute posttraumatic change is not excluded. 4. No additional findings are concerning for acute right femoral fracture. 5. There is postoperative change from fusion of the right knee joint. The orthopedic hardware appears intact. 6. Right hip joint effusion with calcified joint bodies. 7. Additional findings as above. L-SPINE CT: IMPRESSION: 1. No acute bony abnormality is seen involving the lumbar spine. 2. Osteopenia and spondylotic change as above. 3. A mild chronic compression deformity of L1 is unchanged from previous. 4. Additional findings as above. Supervising Physician Co-Signing Physician Notes 53-year-old old woman with history of Tsai/alcoholic cirrhosis, hepatic encephalopathy, paroxysmal A. fib not on anticoagulation, CKD 3, hypothyroidism, history of gastric bypass with anastomotic ulcer, chronic pain, depression who presents to the ER after a fall 4 days ago with worsening right hip pain limiting ambulation. Patient was recently hospitalized in September after a fall with right hip pain due to acute comminuted fracture of acetabulum which was managed conservatively. General: Well nourished, well hydrated, no acute distress Eyes: PERRL, conjunctivae normal, not pale, anicteric sclerae, EOM intact bilaterally ENMT: External ear and nose normal, oropharynx normal Neck: Normal visual inspection, no tracheal deviation, no swelling noted Respiratory: Normal respiratory effort, no respiratory distress, lungs clear to auscultation, no crackles and no wheezes Cardiovascular: RRR, S1 S2 Gastrointestinal (Abdomen): Abdomen is not distended, soft, non-tender to palpation, no guarding, no palpable hepatosplenomegaly, normal bowel sounds Musculoskeletal: Tenderness over right hip. Limited movement of RLE due to pain Neurologic: Alert and oriented x 3, sensation grossly intact Psychiatric: Alert and oriented x 3, euthymic affect Lab work notable for Hb of 10.3, Alk Phos [address], femur CT show no acute fractures, has subacute/healing fracture inv olving the anterosuperior right acetabulum, avascular necrosis of right femoral head with sob chondral collapse and fragmentation of right femoral head -Fall -Ambulatory dysfunction -Subacute right acetabular fracture -Avascular necrosis of right femoral head Pain control. Continue home Dilaudid p.o. Nonweightbearing Orthopedic consult We will get PT/OT evaluation after orthopedic evaluation Continue home levothyroxine, metoprolol, multivitamins and xiafaxin Continue home duloxetine, gabapentin Counseled patient on need to stop alcohol use completely Other plan as above (1) Cirrhosis Ascites presence: with ascites Hepatic cirrhosis type: unspecified hepatic ci rrhosis Qualified Code(s): K74.60 - Unspecified cirrhosis of liver; R18.8 - Other ascites (2) Anemia, iron deficiency Iron deficiency anemia type: unspecified iron deficiency Qualified Code(s): D50.9 - Iron deficiency anemia, unspecified
[2020-11-25 15:54] LABS: Basophils # (auto) 0.02 K/uL (0-0.2); Basophils % (auto) 0.5 %; Eosinophils # (auto) 0.14 K/uL (0-0.5); Eosinophils % (auto) 3.3 %; Hematocrit (blood only) 31.9 % (37-47); Hemoglobin 10.3 g/dL (12.0-16.0); Lymphocytes # (auto) 1.46 K/uL (1.2-3.4); Lymphocytes % (auto) 34.7 %; Mean Corpuscular Hemoglobin 29.6 pg (25-34); Mean Corpuscular Hgb Conc 32.3 g/dL (32-36); Mean Corpuscular Volume 91.7 fL (80-100); Mean Platelet Volume 9.5 fL (7.4-10.4); Monocytes # (auto) 0.34 K/uL (0.11-0.59); Monocytes % (auto) 8.1 %; Neutrophils # (auto) 2.25 K/uL (1.4-6.5); Neutrophils % (auto) 53.4 %; Platelet Count 216 K/uL (130-400); RDW Coefficient of Variation 15.6 % (11.5-14.5); RDW Standard Deviation 51.2 fL (36.4-46.3); Red Blood Count 3.48 M/uL (4.2-5.4); White Blood Count 4.21 K/uL (4.8-10.8)
[2020-11-25 16:07] LABS: INR 1.1 (0.9-1.1); Partial Thromboplastin Ratio 1.1; Partial Thromboplastin Time 30.5 Seconds (21.0-31.0); Prothrombin Time 11.8 Seconds (9.0-12.0)
[2020-11-25 16:21] LABS: Albumin Level 3.1 gm/dl (3.4-5.0); BUN Creatinine Ratio 10.3 (10-20); Calcium 9.3 mg/dl (8.5-10.1); Creatinine Clr Calc Pharmacy 63.4 ml/min; Est GFR (African American) 74.6; Est GFR (Non-African American) 64.4; Potassium 4.8 mmol/L (3.5-5.1)
[2020-11-25 16:24] LABS: Albumin Globulin Ratio 0.9 (0.9-2); Bilirubin,Total 0.4 mg/dl (0.2-1); Globulin 3.4 gm/dl (2.5-4.0); Total Protein 6.5 gm/dl (6.4-8.2)
[2020-11-25] MEDS ORDERED: ONDANSETRON INJ 2 MG/ML 2 ML VIAL IV PRN (17:20)
[2020-11-25] MEDS ORDERED: bisacodyL 10 MG SUPP PR PRN (17:20)
[2020-11-25] MEDS ORDERED: MAGNESIUM HYDROXIDE SUSP 30 ML UDC PO PRN (17:20)
[2020-11-25] MEDS ORDERED: SUCRALFATE 1 GM TAB PO PRN (17:20)
[2020-11-25] MEDS ORDERED: POLYETHYLENE (MIRALAX) 17 GM PACK PO PRN (17:20)
[2020-11-25] MEDS ORDERED: NALOXONE HCL 0.4 MG/1 ML VIAL/CARP IV PRN (17:20)
[2020-11-25] MEDS ORDERED: CYCLOBENZAPRINE HCL 10 MG TAB PO PRN (17:28)
[2020-11-25] MEDS ORDERED: LACTULOSE SYRUP 30 GM/45 ML UDP PO PRN (17:37)
[2020-11-25] MEDS: KETOROLAC TROMETHAMINE 15 MG/ML VIAL IV PRN (17:45)
[2020-11-25] MEDS: METOPROLOL TARTRATE 25 MG TAB PO SCH ×2 (18:37→20:20)
[2020-11-25] MEDS: HYDROmorphone HCL 2 MG TAB PO PRN (19:39)
[2020-11-25] MEDS: POTASSIUM CHLORIDE 10 MEQ TABCR PO SCH (20:20)
[2020-11-25] MEDS: AMITRIPTYLINE HCL 50 MG TAB PO SCH (20:20)
[2020-11-25] MEDS: GABAPENTIN 300 MG CAP PO SCH (20:21)
[2020-11-25] MEDS: DOCUSATE SODIUM/SENNA 50/8.6MG TAB PO SCH (20:21)
[2020-11-25] MEDS: PANTOprazole 40 MG TAB PO SCH (20:21)
[2020-11-25] MEDS: rifAXIMin 550 MG TABLET PO SCH (20:22)
--- NOTE | 2020-11-25 20:45 | XRay Report ---
SINGLE VIEW CHEST CLINICAL HISTORY: Preoperative examination. FINDINGS: An AP, portable, upright chest radiograph is compared to study dated 09/02/2020. The cardiom ediastinal silhouette is unremarkable. Chronic interstitial thickening is similar to previous. There is no airspace consolidation or pleural effusion. No pneumothorax is seen. The skeletal structures ar e osteopenic. There are numerous healed right-sided rib fractures. A right shoulder arthroplasty is i n place. IMPRESSION: No active disease in the chest. ACT 112: Negative or not required by law. Electronically signed by: Oscar Rainey M.D. 11/25/2020 8:43 PM
[2020-11-26] MEDS: KETOROLAC TROMETHAMINE 15 MG/ML VIAL IV PRN ×2 (03:55→15:59)
[2020-11-26] MEDS: LEVOTHYROXINE SODIUM 75 MCG TABLET PO SCH (05:36)
[2020-11-26 06:32] LABS: Hematocrit (blood only) 30.9 % (37-47); Hemoglobin 9.8 g/dL (12.0-16.0); Mean Corpuscular Hemoglobin 29.3 pg (25-34); Mean Corpuscular Hgb Conc 31.7 g/dL (32-36); Mean Corpuscular Volume 92.2 fL (80-100); Mean Platelet Volume 9.5 fL (7.4-10.4); Platelet Count 201 K/uL (130-400); RDW Coefficient of Variation 15.6 % (11.5-14.5); RDW Standard Deviation 51.9 fL (36.4-46.3); Red Blood Count 3.35 M/uL (4.2-5.4); White Blood Count 3.72 K/uL (4.8-10.8)
[2020-11-26 07:04] LABS: Calcium 8.5 mg/dl (8.5-10.1); Creatinine Clr Calc Pharmacy 55.4 ml/min; Est GFR (African American) 63.4; Est GFR (Non-African American) 54.7
[2020-11-26] MEDS: DULoxetine HCL 60 MG CAP PO SCH (07:44)
[2020-11-26] MEDS: TORSEMIDE 20 MG TAB PO SCH (07:44)
[2020-11-26] MEDS: POTASSIUM CHLORIDE 10 MEQ TABCR PO SCH ×2 (07:45→20:09)
[2020-11-26] MEDS: MAGNESIUM OXIDE 400 MG TAB PO SCH (07:46)
[2020-11-26] MEDS: MULTIVITAMIN TAB PO SCH (07:46)
[2020-11-26] MEDS: PANTOprazole 40 MG TAB PO SCH ×2 (07:47→20:10)
[2020-11-26] MEDS: CHOLECALCIFEROL 1,000 UNITS 25 MCG TAB PO SCH (07:47)
[2020-11-26] MEDS: GABAPENTIN 300 MG CAP PO SCH ×2 (07:47→20:10)
[2020-11-26] MEDS: CETIRIZINE HCL 10 MG TABLET PO SCH (07:48)
[2020-11-26] MEDS: rifAXIMin 550 MG TABLET PO SCH ×2 (07:48→20:11)
[2020-11-26] MEDS: CYANOCOBALAMIN 500 MCG TABLET (VITAMIN B-12) PO SCH (07:48)
[2020-11-26] MEDS: HYDROmorphone HCL 2 MG TAB PO PRN ×2 (07:56→20:09)
--- NOTE | 2020-11-26 08:48 | Hospitalist Progress Note ---
Date of Service November 26, 2020 Assessment & Plan (1) Acute right hip pain: (2) Ambulatory dysfunction: Pt is 60 y/o F with PMH DAVIS/Alcoholic cirrhosis, hypothyroidism, CKD III, depression, iron deficiency anemia presented to ER with c/o right hip pain. Patient with history of fall in 09/2020 resulting in closed right acetabular fractureRecently has been partial weightbearing. mechanical fall 4 days ago and progressive right hip pain and ambulatory dysfunction FEMUR CT/CT PELVIS: 1. No acute fracture is seen involving the sacrum and bony pelvis. 2. There is a subacute/healing fracture involving the anterosuperior right acetabulum. 3. Again seen is evidence of avascular necrosis of the right femoral head. There is subchondral collapse and fragmentation of the right femoral head which is new from 09/02/2020. This is likely related to avascular necrosis; however, acute posttraumatic change is not excluded. 4. No additional findings are concerning for acute right femoral fracture. 5. There is postoperative change from fusion of the right knee joint. The orthopedic hardware appears intact. 6. Right hip joint effusion with calcified joint bodies. L-SPINE CT: 1. No acute bony abnormality is seen involving the lumbar spine. 2. Osteopenia and spondylotic change as above. 3. A mild chronic compression deformity of L1 is unchanged from previous. -Continue home Dilaudid po use -Short term use of toradol -Ortho consult. ER provider spoke to ortho and recommend non-weight bearing -If ortho would decide on a procedure, will need anesthesia consult and pre-op antibiotics ordered - Discussed w/ ortho - pt needs her R knee fixed first in [place] by ortho. - PT/OR ordered - may need rehab/ snf prior to her surgery in [place] - MRI R hip ordered by ortho - follow up - as outpt recommend follow up w/ osteoporosis clinic (3) Cirrhosis: DAVIS/Alcoholic cirrhosis Last drink reported one week ago. No mental status change or volume overload at this time -Continue rifaximin, lactulose as needed, torsemide (4) CKD (chronic kidney disease) stage 3, GFR 30-59 ml/min: Cr: 0.97. At baseline Monitor renal functions, avoid nephrotoxic agents when possible (5) Hypothyroidism: Continue levothyroxine (6) Anemia, iron deficiency: Hgb:10. baseline in 9's -Continue iron supplement (7) Depression: -Continue duloxetine DVT Prophylaxis -SCDs Full Code as per discussion with pt Follows with Dr Bro for routine care Admission and Anticipated Discharge Date Admission Date: November 25, 2020 Subjective Pt seen in follow up of R hip pain, AVN. Currently pt is laying in bed in [facility]. Seen by ortho - recommend that pt needs her R knee fixed by otho in [place] before R hip surgery can be attempted. MRI right hip ordered by ortho PT/OT (R tip toe weightbearing) Review of Systems Review of Systems: All systems reviewed & are unremarkable except as noted in HPI & below Constitutional: no fever and no chills Respiratory: no cough and no dyspnea Cardiovascular: no chest pain and no palpitations Gastrointestinal: no abdominal pain, no nausea and no vomiting Genitourinary: no dysuria Musculoskeletal: + joint pain (R hip) Physical Exam Physical Exam: General: Well nourished, well hydrated, no acute distress Eyes: PERRL, conjunctivae normal, not pale, anicteric sclerae, EOM intact bilaterally ENMT: External ear and nose normal, oropharynx normal Neck: Normal visual inspection, no tracheal deviation, no swelling noted Respiratory: Normal respiratory effort, no respiratory distress, lungs clear to auscultation, no crackles and no wheezes Cardiovascular: RRR, S1 S2 Gastrointestinal (Abdomen): Abdomen is not distended, soft, non-tender to pa lpation, no guarding, no palpable hepatosplenomegaly, normal bowel sounds Musculoskeletal: Tenderness over right hip. Limited movement of RLE due to pain Neurologic: Alert and oriented x 3, sensation grossly intact Psychiatric: Alert and oriented x 3, euthymic affect Results & Data Results & [facility]) Vital Signs (Past 12 Hours) Vital Signs Temp Pulse Resp BP Pulse Ox 11/26/20 07:34 36.8 C 68 18 138/84 95 11/25/20 23:28 36.9 C 83 18 134/81 97 Laboratory Results 11/26/20 11/26/20 11/25/20 Range/Units 06:12 06:12 17:33 WBC 3.72 L (4.8-10.8) K/uL RBC 3.35 L (4.2-5.4) M/uL Hgb 9.8 L (12.0-16.0) g/dL Hct 30.9 L (37-47) % MCV 92.2 (80-100) fL MCH 29.3 (25-34) pg MCHC 31.7 L (32-36) g/dL RDW Std Deviation 51.9 H (36.4-46.3) fL RDW Coeff of Jake 15.6 H (11.5-14.5) % Plt Count 201 (130-400) K/uL MPV 9.5 (7.4-10.4) fL Immature Gran % (Auto) % Neut % (Auto) % Lymph % (Auto) % Loup % (Auto) % Eos % (Auto) % Baso % (Auto) % Neut # (Auto) (1.4-6.5) K/uL Lymph # (Auto) (1.2-3.4) K/uL Loup # (Auto) (0.11-0.59) K/uL Eos # (Auto) (0-0.5) K/uL Baso # (Auto) (0-0.2) K/uL Immature Gran # (Auto) (0.00-0.02) K/uL PT (9.0-12.0) Seconds INR (0.9-1.1) APTT (21.0-31.0) Seconds PTT Ratio Sodium 135 L (136-145) mmol/L Potassium 5.0 (3.5-5.1) mmol/L Chloride 106 (98-107) mmol/L Carbon Dioxide 25 (21-32) mmol/L Anion Gap 4.0 (3-11) BUN 11 (7-18) mg/dl Creatinine 1.11 (0.6-1.2) mg/dl Est Cr Clr Drug Dosing 55.4 ml/min Est GFR ( Amer) 63.4 Est GFR (Non-Af Amer) 54.7 BUN/Creatinine Ratio 10.0 (10-20) Glucose 79 (70-99) mg/dl Calcium 8.5 (8.5-10.1) mg/dl Total Bilirubin (0.2-1) mg/dl AST (15-37) U/L ALT (12-78) U/L Alkaline Phosphatase (45-117) U/L Total Protein (6.4-8.2) gm/dl Albumin (3.4-5.0) gm/dl Globulin (2.5-4.0) gm/dl Albumin/Globulin Ratio (0.9-2) COVID-19 Eval Order SARS-CoV-2, RNA, NAAT (NEGATIVE) Blood Type O Positive Antibody Screen NEGATIVE 11/25/20 11/25/20 11/25/20 Range/Units 15:44 15:44 15:44 WBC 4.21 L (4.8-10.8) K/uL RBC 3.48 L (4.2-5.4) M/uL Hgb 10.3 L (12.0-16.0) g/dL Hct 31.9 L (37-47) % MCV 91.7 (80-100) fL MCH 29.6 (25-34) pg MCHC 32.3 (32-36) g/dL RDW Std Deviation 51.2 H (36.4-46.3) fL RDW Coeff of Jake 15.6 H (11.5-14.5) % Plt Count 216 (130-400) K/uL MPV 9.5 (7.4-10.4) fL Immature Gran % (Auto) 0.0 % Neut % (Auto) 53.4 % Lymph % (Auto) 34.7 % Loup % (Auto) 8.1 % Eos % (Auto) 3.3 % Baso % (Auto) 0.5 % Neut # (Auto) 2.25 (1.4-6.5) K/uL Lymph # (Auto) 1.46 (1.2-3.4) K/uL Loup # (Auto) 0.34 (0.11-0.59) K/uL Eos # (Auto) 0.14 (0-0.5) K/uL Baso # (Auto) 0.02 (0-0.2) K/uL Immature Gran # (Auto) 0.00 (0.00-0.02) K/uL PT 11.8 (9.0-12.0) Seconds INR 1.1 (0.9-1.1) APTT 30.5 (21.0-31.0) Seconds PTT Ratio 1.1 Sodium 137 (136-145) mmol/L Potassium 4.8 (3.5-5.1) mmol/L Chloride 105 (98-107) mmol/L Carbon Dioxide 23 (21-32) mmol/L Anion Gap 8.0 (3-11) BUN 10 (7-18) mg/dl Creatinine 0.97 (0.6-1.2) mg/dl Est Cr Clr Drug Dosing 63.4 ml/min Est GFR ( Amer) 74.6 Est GFR (Non-Af Amer) 64.4 BUN/Creatinine Ratio 10.3 (10-20) Glucose 83 (70-99) mg/dl Calcium 9.3 (8.5-10.1) mg/dl Total Bilirubin 0.4 (0.2-1) mg/dl AST 29 (15-37) U/L ALT 29 (12-78) U/L Alkaline Phosphatase 208 H (45-117) U/L Total Protein 6.5 (6.4-8.2) gm/dl Albumin 3.1 L (3.4-5.0) gm/dl Globulin 3.4 (2.5-4.0) gm/dl Albumin/Globulin Ratio 0.9 (0.9-2) COVID-19 Eval Order SARS-CoV-2, RNA, NAAT (NEGATIVE) Blood Type Antibody Screen 11/25/20 11/25/20 Range/Units 15:32 15:32 WBC (4.8-10.8) K/uL RBC (4.2-5.4) M/uL Hgb (12.0-16.0) g/dL Hct (37-47) % MCV (80-100) fL MCH (25-34) pg MCHC (32-36) g/dL RDW Std Deviation (36.4-46.3) fL RDW Coeff of Jake (11.5-14.5) % Plt Count (130-400) K/uL MPV (7.4-10.4) fL Immature Gran % (Auto) % Neut % (Auto) % Lymph % (Auto) % Loup % (Auto) % Eos % (Auto) % Baso % (Auto) % Neut # (Auto) (1.4-6.5) K/uL Lymph # (Auto) (1.2-3.4) K/uL Loup # (Auto) (0.11-0.59) K/uL Eos # (Auto) (0-0.5) K/uL Baso # (Auto) (0-0.2) K/uL Immature Gran # (Auto) (0.00-0.02) K/uL PT (9.0-12.0) Seconds INR (0.9-1.1) APTT (21.0-31.0) Seconds PTT Ratio Sodium (136-145) mmol/L Potassium (3.5-5.1) mmol/L Chloride (98-107) mmol/L Carbon Dioxide (21-32) mmol/L Anion Gap (3-11) BUN (7-18) mg/dl Creatinine (0.6-1.2) mg/dl Est Cr Clr Drug Dosing ml/min Est GFR ( Amer) Est GFR (Non-Af Amer) BUN/Creatinine Ratio (10-20) Glucose (70-99) mg/dl Calcium (8.5-10.1) mg/dl Total Bilirubin (0.2-1) mg/dl AST (15-37) U/L ALT (12-78) U/L Alkaline Phosphatase (45-117) U/L Total Protein (6.4-8.2) gm/dl Albumin (3.4-5.0) gm/dl Globulin (2.5-4.0) gm/dl Albumin/Globulin Ratio (0.9-2) COVID-19 Eval Order Covid19 [facility] SARS-CoV-2, RNA, NAAT NEGATIVE (NEGATIVE) Blood Type Antibody Screen Medications Administered Current Inpatient Medications Acetaminophen (Acetaminophen 325 Mg Tab) 650 mg PO Q4H PRN PRN Reason: pain/fever Stop: 12/25/20 17:19 Amitriptyline HCl (Amitriptyline Hcl 50 Mg Tab) 50 mg PO [facility] Stop: 12/25/20 20:59 Last Admin: 11/25/20 20:20 Dose: 50 mg Documented by: Bisacodyl (Bisacodyl 10 Mg Supp) 10 mg PA DAILY PRN PRN Reason: Constipation Stop: 12/25/20 17:19 Cetirizine HCl (Cetirizine Hcl 10 Mg Tablet) 10 mg PO QAM [facility] Stop: 12/26/20 08:59 Last Admin: 11/26/20 07:48 Dose: 10 mg Documented by: Cyanocobalamin (Cyanocobalamin 500 Mcg Tablet (Vitamin B-12)) 1,000 mcg PO QAM [facility] Stop: 12/26/20 08:59 Last Admin: 11/26/20 07:48 Dose: 1,000 mcg Documented by: Cyclobenzaprine HCl (Cyclobenzaprine Hcl 10 Mg Tab) 10 mg PO HS PRN PRN Reason: Muscle Spasm Stop: 12/25/20 17:27 Duloxetine HCl (Duloxetine Hcl 60 Mg Cap) 60 mg PO QAM [facility] Stop: 12/26/20 08:59 Last Admin: 11/26/20 07:44 Dose: 60 mg Documented by: Ferrous Sulfate (Ferrous Sulfate Elix 220mg/5ml) 220 mg PO DAILY [facility] Stop: 12/26/20 08:59 Gabapentin (Gabapentin 300 Mg Cap) 300 mg PO BID [facility] Stop: 12/25/20 20:59 Last Admin: 11/26/20 07:47 Dose: 300 mg Documented by: Hydromorphone HCl (Hydromorphone Hcl 2 Mg Tab) 1 - 2 mg PO TID PRN PRN Reason: Pain Stop: 12/09/20 17:19 Last Admin: 11/26/20 07:56 Dose: 2 mg Documented by: Ketorolac Tromethamine (Ketorolac Tromethamine 15 Mg/Ml Vial) 15 mg IV Q6H PRN PRN Reason: Moderate Pain Stop: 11/26/20 17:19 Last Admin: 11/26/20 03:55 Dose: 15 mg Documented by: Lactulose (Lactulose Syrup 30 Gm/45 Ml Udp) 30 gm PO DAILY PRN PRN Reason: Other Stop: 12/25/20 17:36 Levothyroxine Sodium (Levothyroxine Sodium 75 Mcg Tablet) 75 mcg PO DAILYBB [facility] Stop: 12/26/20 06:29 Last Admin: 11/26/20 05:36 Dose: 75 mcg Documented by: Magnesium Hydroxide (Magnesium Hydroxide Susp 30 Ml Udc) 30 ml PO DAILY PRN PRN Reason: Constipation Stop: 12/25/20 17:19 Magnesium Oxide (Magnesium Oxide 400 Mg Tab) 400 mg PO DAILY [facility] Stop: 12/26/20 08:59 Last Admin: 11/26/20 07:46 Dose: 400 mg Documented by: Metoprolol Tartrate (Metoprolol Tartrate 25 Mg Tab) 12.5 mg PO BID [facility] Stop: 12/25/20 17:19 Last Admin: 11/25/20 20:20 Dose: 12.5 mg Documented by: Multivitamins (Multivitamin Tab) 1 tab PO QAM [facility] Stop: 12/26/20 08:59 Last Admin: 11/26/20 07:46 Dose: 1 tab Documented by: Naloxone HCl (Naloxone Hcl 0.4 Mg/1 Ml Vial/Carp) 0.1 mg IV UD PRN PRN Reason: Opiate Overdose Stop: 12/25/20 17:19 Ondansetron HCl (Ondansetron Inj 2 Mg/Ml 2 Ml Vial) 4 mg IV Q6H PRN PRN Reason: Nausea Stop: 12/25/20 17:19 Pantoprazole Sodium (Pantoprazole 40 Mg Tab) 40 mg PO BID [facility] Stop: 12/25/20 20:59 Last Admin: 11/26/20 07:47 Dose: 40 mg Documented by: Polyethylene Glycol (Polyethylene (Miralax) 17 Gm Pack) 17 gm PO DAILY PRN PRN Reason: Constipation Stop: 12/25/20 17:19 Potassium Chloride (Potassium Chloride 10 Meq Tabcr) 10 meq PO BID JACQUELYN Stop: 12/25/20 20:59 Last Admin: 11/26/20 07:45 Dose: 10 meq Documented by: Rifaximin (Rifaximin 550 Mg Tablet) 550 mg PO BID [facility] Stop: 12/25/20 20:59 Last Admin: 11/26/20 07:48 Dose: 550 mg Documented by: Senna/Docusate Sodium (Docusate Sodium/Senna 50/8.6mg Tab) 2 tab PO HS [facility] Stop: 12/25/20 20:59 Last Admin: 11/25/20 20:21 Dose: 2 tab Documented by: Sucralfate (Sucralfate 1 Gm Tab) 1 gm PO BID PRN PRN Reason: Stomach Upset Stop: 12/25/20 17:19 Torsemide (Torsemide 20 Mg Tab) 20 mg PO DAILY [facility] Stop: 12/26/20 08:59 Last Admin: 11/26/20 07:44 Dose: 20 mg Documented by: Vitamin D (Cholecalciferol 1,000 Units 25 Mcg Tab) 4,000 units PO QAM [facility] Stop: 12/26/20 08:59 Last Admin: 11/26/20 07:47 Dose: 4,000 units Documented by: (1) Cirrhosis Ascites presence: with ascites Hepatic cirrhosis type: unspecified hepatic cirrhosis Qualified Code(s): K74.60 - Unspecified cirrhosis of liver; R18.8 - Other ascites (2) Anemia, iron deficiency Iron deficiency anemia type: unspecified iron deficiency Qualified Code(s): D50.9 - Iron deficiency anemia, unspecified
[2020-11-26] MEDS ORDERED: FERROUS SULFATE ELIX 220MG/5ML PO SCH (09:00)
[2020-11-26] MEDS: METOPROLOL TARTRATE 25 MG TAB PO SCH ×2 (09:04→20:10)
[2020-11-26] MEDS: FERROUS SULFATE ELIX 220MG/5ML PO SCH (09:04)
--- NOTE | 2020-11-26 10:16 | Orthopedic Consultation ---
Date of Consultation November 26, 2020 Assessment & Plan (1) AVN of femur: X-ray studies reviewed with Dr. Strickland. Plan for MRI of right hip to see the extent of the AVN and rule out any further fracture that may be propagating across the femoral head. She has a lot going on right now with her right lower extremity. Currently her pain control seems to be adequate at rest however she may need to have her pain control adjusted by her pain management team for when she becomes more ambulatory. We discussed that with the likelihood of AVN, this could worsen over time and that her femoral head could degrade. We will get an MRI of the right hip while she is here. In speaking with , there would be no plans for surgical intervention with the right hip until her knee can possibly be taken care of. She will need to have an appointment set up with the [facility] Ortho team that did her original surgeries. They can also treat her right hip as well but if she prefers, she can see Dr. Strickland back in [place] at a later time. We also discussed that she was not seeing anyone specifically for osteoporosis and she cannot remember if she has been worked up for this or not. She is currently taking a vitamin D supplement but she is amenable to seeing [facility] in our office for an osteoporosis work-up. Plan will be for PT and OT protocols, toe-touch weightbearing. Depending on how she progresses, she may need a intermediate facility or rehab facility prior to returning home or returning to [place] for her work-up of her right knee. History of Present Illness Reason for Consultation: Right hip pain Attending Physician: Lauro Romero MD History of Present Illness Pt is 60 y/o F with PMH DAVIS/Alcoholic cirrhosis, hypothyroidism, CKD III, depression, iron deficiency anemia presented to ER with c/o right hip pain. Patient with history of fall in 09/2020 resulting in closed right acetabular fracture, was hospitalized then discharged to rehab and then home. Patient also has a history of explantation of a right total knee arthroplasty that was infected with implantation of a static antibiotic spacer. Any revision of this has been put on hold secondary to Covid. Patient states was initially nonweightbearing and recently has been partial weightbearing. She states 4 days ago she was trying to get up and lost balance and fell onto her right hip. Patient reports has had progressive right hip pain since fall and is now unable to ambulate. Currently the patient is sitting up in bed. She appears comfortable and states that she only has pain off and on in the right hip while lying down. She was supposed to see Dr. Strickland this past in the office however at the last minute, she was unable to get her ride and she was unable to make the appointment. Through our discussion, she is definitely concerned about getting her knee taken care of by the Ortho team at [place] who did her initial explant of hardware and implantation of a static antibiotic spacer. She does state that the hip does hurt worse than her knee when it is bothering her. We have been asked to assess her right hip at this time. Allergies Allergy/AdvReac Type Severity Reaction Status Date / Time cefaclor Allergy Intermediate Swelling Verified 11/25/20 12:25 oxycodone Allergy Intermediate HIVES Verified 11/25/20 12:25 amoxicillin Allergy Mild Nausea Verified 11/25/20 12:25 ceftriaxone [From Rocephin] Allergy Rash Verified 11/25/20 12:25 metronidazole [From Flagyl] Allergy Rash Verified 11/25/20 12:25 Home Medications Medication Instructions Recorded Confirmed Type cyanocobalamin (vitamin B-12) 1,000 mcg PO QAM 08/22/18 11/25/20 History [Vitamin B-12] multivitamin 1 tab PO QAM 08/22/18 11/25/20 History Xifaxan 550 mg PO BID 10/03/18 11/25/20 History cholecalciferol (vitamin D3) 4,000 unit PO QAM 10/03/18 11/25/20 History [Vitamin D3] duloxetine [Cymbalta] 60 mg PO QAM 07/19/19 11/25/20 History pantoprazole [Protonix] 40 mg PO BID 07/19/19 11/25/20 History cetirizine [Zyrtec] 10 mg PO QAM 04/05/20 11/25/20 History gabapentin 300 mg PO BID #60 cap 06/23/20 11/25/20 Rx amitriptyline 50 mg PO HS 09/02/20 11/25/20 History cyclobenzaprine 10 mg PO HS PRN 09/02/20 11/25/20 History ferrous sulfate 220 mg PO DAILY 11/25/20 11/25/20 History hydromorphone [Dilaudid] See Rx Instructions .ROUTE 11/25/20 11/25/20 History .COMPLEX PRN lactulose 45 ml PO DAILY PRN 11/25/20 11/25/20 History levothyroxine 75 mcg PO DAILY 11/25/20 11/25/20 History magnesium oxide 400 mg PO DAILY 11/25/20 11/25/20 History metoprolol tartrate 12.5 mg PO BID 11/25/20 11/25/20 History potassium chloride 10 meq PO BID 11/25/20 11/25/20 History sucralfate 1 g PO BID PRN 11/25/20 11/25/20 History torsemide 20 mg PO DAILY 11/25/20 11/25/20 History Patient History Medical History REJI (acute kidney injury) Anemia, iron deficiency Ascites Cirrhosis CKD (chronic kidney disease) stage 3, GFR 30-59 ml/min Depression Gastric peptic ulcer Hypothyroidism Neuropathy of both feet On anticoagulant therapy warfarin daily Surgical History History of arthrodesis left leg History of arthroplasty of right shoulder unable to lift arm after sx History of arthroscopy of left knee x2 History of arthroscopy of right knee x7 History of cardiac cath 2011--no stents History of cholecystectomy History of colonoscopy History of esophagogastroduodenoscopy (EGD) History of gastric bypass History of open reduction and internal fixation (ORIF) procedure left tib/fib fx--hardware in place History of surgery on extremity 2016--right leg hardware in place per pt a "fusion of her leg" History of tooth extraction all teeth removed History of total right knee replacement (TKR) 2006 Family History Sister Breast cancer Mother Hypertension Diabetes Other No family history of adverse response to anesthesia Social History Smoking Status: Never smoker Second Hand Exposure: No; Hx Alcohol Use: Yes Alcohol type: wine Alcohol Intake Frequency: 4 or More x per/Week Alcohol Intake Frequency Comment: Pt states now drinks approx twice a week Hx Substance Use: No Preferred Language: Hebrew Communication Ability: Effective Bulk Filler Required: No Beliefs That Will Affect Care: None Current Living Situation: Alone Other Information That Helps Us Care for You: No Feels Safe at Home: Yes Safety Concerns: Feels Safe At This Time Assistive Devices: Glasses Review of Systems Review of Systems: All systems reviewed & are unremarkable except as noted in HPI & below Physical Exam Physical Exam: On examination, the patient is sitting up in bed. She appears comfortable at this time. No acute distress, pleasant and cooperative. Alert and oriented x3. On examination of her right lower extremity, she has a well-healed scar over her right knee from her previous surgery. No range of motion of the right knee secondary to static antibiotic spacer that has been implanted. She is able to move her right ankle and toes at this time. Gentle passive internal and external rotation of the right hip does not cause her any discomfort. I can take her through gentle passive range of motion of flexion and extension of the right hip which does not seem to overly accentuate the pain in her right hip. She states that most of the time her pain occurs with either active range of motion and or just trying to weight-bear. Pulses present. Capillary refill is less than 2 seconds. There is no gross motor loss seen at this time. H/O neuropathy of the LE. Results & Data ([facility]) Vital Signs (Past 12 Hours) Vital Signs Temp Pulse Resp BP Pulse Ox 11/26/20 07:34 36.8 C 68 18 138/84 95 11/25/20 23:28 36.9 C 83 18 134/81 97 Diagnostic Findings Patient: Emily JARVIS Date: 11/25/20MR#: [id number]: [address] ID:[id number]: [address]: [facility] Zip: [place] [address]Mhy: [id number]: EDSex: FRoom/Bed:Att Phy:Diagnosis: LEG INJURY/PAINPri Phy: Naresh Bro MDService Date: 11/25/20Fam Phy:Interpreting Phy: Oscar Rainey [facility]: Ordering Phy: Clarisa De La Torre CRNP cc: ~ CT SCAN OF THE PELVIS WITHOUT IV CONTRAST; CT SCAN OF THE RIGHT FEMUR WITHOUT IV CONTRAST CLINICAL HISTORY: Fall with right hip pain. COMPARISON STUDY: Pelvic CT dated 03/19/2020. CT scan of the right hip dated 09/02/2020. TECHNIQUE: CT scan of the bony pelvis is performed from the pelvic inlet to the proximal femora. Additionally, CT scan of the right femur is performed from the bony pelvis to the proximal tibia and fibula. Images for both examinations are reviewed in the axial, sagittal, and coronal planes. IV contrast was not admi nistered for this examination. A dose lowering technique was utilized adhering to the principles of ALARA. 3-D reformats of the femoral CT are created and assessed. CT DOSE: 1934.61 mGy.cm FINDINGS: The skeletal structures are osteopenic. No acute fracture is seen involving the sacrum or bony pelvis. The left proximal femur is intact and without evidence of avascular necrosis. There is a subacute/healing fracture of the anterosuperior right acetabulum, which was acute on 09/02/2020. 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 Fragmentati on is new from previous and may be on a posttraumatic basis. No additional findings are concerning for right femoral fracture. There is postoperative change from fusion of the right knee joint. An intramedullary nail transfixes the knee joint. The orthopedic hardware is intact. Bony overgrowth is seen along the medial tibial plateau and cement fills the joint space. Moderate degenerative joint space narrowing is seen in the left hip. Advanced degenerative joint space narrowing is seen in the right hip. A right hip joint effusion has increased from the 09/02/2020 examination and contains a small calcified joint body. The bladder, uterus, and adnexa are normal as imaged. No free air or free fluid is seen in the pelvis. The visualized loops of small bowel and colon are normal in caliber without evidence of obstruction. There is no pelvic sidewall or inguinal lymphadenopathy. There is generalized atrophy of the pelvic musculature. There is also atrophy of the right thigh musculature. No soft tissue injury hematoma is identified. IMPRESSION: 1. No acute fracture is seen involving the sacrum and bony pelvis. 2. There is a subacute/healing fracture involving the anterosuperior right a cetabulum. 3. Again seen is evidence of avascular necrosis of the right femoral head. There is subchondral collapse and fragmentation of the right femoral head which is new from 09/02/2020. This is likely related to avascular necrosis; however, acute posttraumatic change is not excluded. 4. No additional findings are concerning for acute right femoral fracture. 5. There is postoperative change from fusion of the right knee joint. The orthopedic hardware appears intact. 6. Right hip joint effusion with calcified joint bodies. 7. Additional findings as above.
[2020-11-26] MEDS: ACETAMINOPHEN 325 MG TAB PO PRN (10:41)
[2020-11-26] MEDS ORDERED: LORazepam 0.5 MG TAB PO STA (13:26)
--- NOTE | 2020-11-26 14:58 | Magnetic Resonance Report ---
MR hip RT wo con CLINICAL HISTORY: 60 years-old Female with h/o fx/AVN. Acute right hip pain COMPARISON: CT pelvis and right femur 11/25/2020 TECHNIQUE: Multiplanar, multi sequence MRI of the right hip was performed without intravenous contras t. FINDINGS: Lumbar levoscoliosis. Retroflexed uterus with nonspecific mild free pelvic fluid. Motion degraded exa m. LABRUM: There is irregularity of the right anterosuperior labrum which is suboptimally visualized se condary to the aforementioned motion artifact. BONE MARROW: Marked bone marrow edema of the right femoral head and neck extending into the intertro chanteric distribution. Ill-defined linear areas of decreased T1 and T2 signal are noted within the i ntertrochanteric proximal femur. Avascular necrosis with subchondral fracture of the anterosuperior f emoral head measures up to approximately 2.4 x 3.5 cm in transverse and AP dimensions. This results a rticular depression of approximately 4 mm. Healing subacute fracture of the anterosuperior acetabulum . BURSAE: There is no evidence for iliopsoas or trochanteric bursitis. HIP JOINT: Moderate narrowing of the right hip. Mild left hip osteoarthritis. Moderate right hip alyssa nt effusion. Tiny fractured intra-articular bone fragment seen are better seen on comparison CT study . MUSCLES: There is moderate subcutaneous edema lateral to the right hip. Edema surrounding the right femoral acetabular joint extends into the proximal thigh musculature, notably adjacent to the vastus lateralis and right abductor space SCIATIC NERVE: The morphology and signal characteristics of the sciatic nerve appear normal. IMPRESSION: 1. Motion degraded exam. 2. Healing subacute fracture is again noted involving the anterosuperior wall of the acetabulum. 3. 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 These findings have progressively worsened from the 09/02/2020 exam. There is a conside rable amount of bone marrow edema involving the right femoral head, neck and intertrochanteric distri bution which may be reactive from the aforementioned changes, however linear signal abnormality withi n the intertrochanteric distribution raises the possibility of a subtle acute nondisplaced intertroch anteric fracture. 4. Moderate joint effusion with likely reactive edema of the right abductor musculature and proximal quadriceps. These findings are likely reactive with superimposed infectious etiology considered less likely. ACT 112: Negative or not required by law. The above report was generated using voice recognition software. It may contain grammatical, syntax o r spelling errors. Electronically signed by: Renan Campos M.D. 11/26/2020 2:57 PM
[2020-11-26] MEDS: DOCUSATE SODIUM/SENNA 50/8.6MG TAB PO SCH (20:09)
[2020-11-26] MEDS: AMITRIPTYLINE HCL 50 MG TAB PO SCH (20:11)
[2020-11-27] MEDS: LEVOTHYROXINE SODIUM 75 MCG TABLET PO SCH (06:38)
[2020-11-27] MEDS: POTASSIUM CHLORIDE 10 MEQ TABCR PO SCH ×2 (08:59→21:23)
[2020-11-27] MEDS: FERROUS SULFATE ELIX 220MG/5ML PO SCH (09:00)
[2020-11-27] MEDS: CYANOCOBALAMIN 500 MCG TABLET (VITAMIN B-12) PO SCH (09:01)
[2020-11-27] MEDS: METOPROLOL TARTRATE 25 MG TAB PO SCH ×2 (09:01→20:09)
[2020-11-27] MEDS: TORSEMIDE 20 MG TAB PO SCH (09:01)
[2020-11-27] MEDS: rifAXIMin 550 MG TABLET PO SCH ×2 (09:02→20:10)
[2020-11-27] MEDS: CETIRIZINE HCL 10 MG TABLET PO SCH (09:02)
[2020-11-27] MEDS: CHOLECALCIFEROL 1,000 UNITS 25 MCG TAB PO SCH (09:02)
[2020-11-27] MEDS: DULoxetine HCL 60 MG CAP PO SCH (09:02)
[2020-11-27] MEDS: MULTIVITAMIN TAB PO SCH (09:03)
[2020-11-27] MEDS: PANTOprazole 40 MG TAB PO SCH ×2 (09:03→20:10)
[2020-11-27] MEDS: GABAPENTIN 300 MG CAP PO SCH ×2 (09:03→20:08)
[2020-11-27] MEDS: MAGNESIUM OXIDE 400 MG TAB PO SCH (09:42)
[2020-11-27] MEDS: HYDROmorphone HCL 2 MG TAB PO PRN (09:45)
--- NOTE | 2020-11-27 11:39 | Communication Note ---
Date of Service: November 27, 2020 MRI of the right hip reviewed with Dr. Strickland. He feels that the edema noted in the intertrochanteric region is more likely due to reactive avn rather than fracture. At this time, we will continue protected weightbearing at toe-touch weightbearing for balance. The patient was ambulating with PT today and ambulated only 6 feet. We discussed that for her safety, that we would not like to send her home with that minimal ambulation. Patient's previous attempts with home health did not work out. I discussed with her going to [facility] for 3 to 5-day stay to increase her ambulation distance and make sure she is safe before she goes home. She was amenable to this and we will contact case management and see if we can get her into [facility]. Continue further plans for follow-up with Brandin Dill for possibility of revision right TKA and treatment of her AVN of her right hip.
[2020-11-27] MEDS: ACETAMINOPHEN 325 MG TAB PO PRN (13:58)
--- NOTE | 2020-11-27 18:12 | Hospitalist Progress Note ---
Date of Service November 27, 2020 Assessment & Plan (1) Acute right hip pain: (2) Ambulatory dysfunction: Pt is 60 y/o F with PMH DAVIS/Alcoholic cirrhosis, hypothyroidism, CKD III, depression, iron deficiency anemia presented to ER with c/o right hip pain. Patient with history of fall in 09/2020 resulting in closed right acetabular fractureRecently has been partial weightbearing. mechanical fall 4 days ago and progressive right hip pain and ambulatory dysfunction FEMUR CT/CT PELVIS: 1. No acute fracture is seen involving the sacrum and bony pelvis. 2. There is a subacute/healing fracture involving the anterosuperior right acetabulum. 3. Again seen is evidence of avascular necrosis of the right femoral head. There is subchondral collapse and fragmentation of the right femoral head which is new from 09/02/2020. This is likely related to avascular necrosis; however, acute posttraumatic change is not excluded. 4. No additional findings are concerning for acute right femoral fracture. 5. There is postoperative change from fusion of the right knee joint. The orthopedic hardware appears intact. 6. Right hip joint effusion with calcified joint bodies. L-SPINE CT: 1. No acute bony abnormality is seen involving the lumbar spine. 2. Osteopenia and spondylotic change as above. 3. A mild chronic compression deformity of L1 is unchanged from previous. -Continue home Dilaudid po use -Short term use of toradol -Ortho consult. ER provider spoke to ortho and recommend non-weight bearing -If ortho would decide on a procedure, will need anesthesia consult and pre-op antibiotics ordered - Discussed w/ ortho - pt needs her R knee fixed first in [place] by ortho. - PT/OR ordered - may need rehab/ snf prior to her surgery in [place] - MRI R hip obtained and reviewed by ortho team - It is strongly recommended that pt goes to rehab/ SNF before she is able to go to [place] for surgery, pt is willing to go to [facility], CM aware [facility] by [facility] CM that pt was difficult to follow up - and often would not allow HH to come in to her house, pt is in high risk of falling and injuring herself, it is recommended that she would go to rehab/ snf - as outpt recommend follow up w/ osteoporosis clinic Atrial tachycardia - pt was evaluated by cardiology as outpt - they were trying to contact her but were not successful - outpt study did not show definitive atrial fibrillation but showed multiple runs of atrial tachycardia, w/ avg. HR 105 - recommended to increase her metoprolol to 25 mg BID - I discussed this with the pt and increased her metoprolol, will cont. to monitor VS while inpt (3) Cirrhosis: DAVIS/Alcoholic cirrhosis Last drink reported one week ago. No mental status change or volume overload at this time -Continue rifaximin, lactulose as needed, torsemide (4) CKD (chronic kidney disease) stage 3, GFR 30-59 ml/min: Cr: 0.97. At baseline Monitor renal functions, avoid nephrotoxic agents when possible (5) Hypothyroidism: Continue levothyroxine (6) Anemia, iron deficiency: Hgb:10. baseline in 's -Continue iron supplement (7) Depression: -Continue duloxetine DVT Prophylaxis -SCDs Full Code as per discussion with pt Follows with Dr Bro for routine care Admission and Anticipated Discharge Date Admission Date: November 27, 2020 Subjective Pt seen in follow up of R hip pain, R femoral head AVN. Currently pt is laying in bed in [facility]. Seen by ortho - recommend that pt needs her R knee fixed by otho in [place] before R hip surgery can be attempted. MRI right hip obtained and reviewed by ortho team. PT/OT (R tip toe weightbearing) It was strongly advised for the pt to go to rehab/snf before she gets to [place] for surgery. Pt is open to the idea of [facility]. [facility] and would not allow agency to come in. Pt is in high risk of falling and severely injure herself. Will work w/ CM in the hospital here to get pt to [facility] or other rehab/snf. Review of Systems Review of Systems: All systems reviewed & are unremarkable except as noted in HPI & below Constitutional: no fever and no chills Respiratory: no cough and no dyspnea Cardiovascular: no chest pain and no palpitations Gastrointestinal: no abdominal pain, no nausea and no vomiting Genitourinary: no dysuria Musculoskeletal: + joint pain (R hip) Physical Exam Physical Exam: General: Well nourished, well hydrated, no acute di stress Eyes: PERRL, conjunctivae normal, not pale, anicteric sclerae, EOM intact bilaterally ENMT: External ear and nose normal, oropharynx normal Neck: Normal visual inspection, no tracheal deviation, no swelling noted Respiratory: Normal respiratory effort, no respiratory distress, lungs clear to auscultation, no crackles and no wheezes Cardiovascular: RRR, S1 S2 Gastrointestinal (Abdomen): Abdomen is not distended, soft, non-tender to palpation, no guarding, normal bowel sounds Musculoskeletal: Tenderness over right hip. Limited movement of RLE due to pain Neurologic: Alert and oriented x 3, sensation grossly intact Psychiatric: Alert and oriented x 3, euthymic affect Results & Data Results & Data ([facility]) Vital Signs (Past 12 Hours) Vital Signs Temp Pulse Resp BP Pulse Ox 11/27/20 15:15 36.5 C 86 16 104/68 94 11/27/20 07:21 36.6 C 98 H 16 102/72 94 Medications Administered Current Inpatient Medications Acetaminophen (Acetaminophen 325 Mg Tab) 650 mg PO Q4H PRN PRN Reason: pain/fever Stop: 12/25/20 17:19 Last Admin: 11/27/20 13:58 Dose: 650 mg Documented by: Amitriptyline HCl (Amitriptyline Hcl 50 Mg Tab) 50 mg PO HS [facility] Stop: 12/25/20 20:59 Last Admin: 11/26/20 20:11 Dose: 50 mg Documented by: Bisacodyl (Bisacodyl 10 Mg Supp) 10 mg DC DAILY PRN PRN Reason: Constipation Stop: 12/25/20 17:19 Cetirizine HCl (Cetirizine Hcl 10 Mg Tablet) [facility] Stop: 12/26/20 08:59 Last Admin: 11/27/20 09:02 Dose: 10 mg Documented by: Cyanocobalamin (Cyanocobalamin 500 Mcg Tablet (Vitamin B-12)) 1,000 mcg PO QAM [facility] Stop: 12/26/20 08:59 Last Admin: 11/27/20 09:01 Dose: 1,000 mcg Documented by: Cyclobenzaprine HCl (Cyclobenzaprine Hcl 10 Mg Tab) 10 mg PO HS PRN PRN Reason: Muscle Spasm Stop: 12/25/20 17:27 Last Admin: 11/27/20 13:57 Dose: 10 mg Documented by: Duloxetine HCl (Duloxetine Hcl 60 Mg Cap) 60 mg PO QAM [facility] Stop: 12/26/20 08:59 Last Admin: 01/26/21 09:02 Dose: 60 mg Documented by: Ferrous Sulfate (Ferrous Sulfate Elix 220mg/5ml) 220 mg PO DAILY [facility] Stop: 12/26/20 08:59 Last Admin: 11/27/20 09:00 Dose: 220 mg Documented by: Gabapentin (Gabapentin 300 Mg Cap) 300 mg PO BID [facility] Stop: 12/25/20 20:59 Last Admin: 11/27/20 09:03 Dose: 300 mg Documented by: Hydromorphone HCl (Hydromorphone Hcl 2 Mg Tab) 1 - 2 mg PO TID PRN PRN Reason: Pain Stop: 12/09/20 17:19 Last Admin: 11/27/20 09:45 Dose: 2 mg Documented by: Lactulose (Lactulose Syrup 30 Gm/45 Ml Udp) 30 gm PO DAILY PRN PRN Reason: Other Stop: 12/25/20 17:36 Levothyroxine Sodium (Levothyroxine Sodium 75 Mcg Tablet) 75 mcg PO DAILYBB [facility] Stop: 12/26/20 06:29 Last Admin: 11/27/20 06:38 Dose: 75 mcg Documented by: Magnesium Hydroxide (Magnesium Hydroxide Susp 30 Ml Udc) 30 ml PO DAILY PRN PRN Reason: Constipation Stop: 12/25/20 17:19 Magnesium Oxide (Magnesium Oxide 400 Mg Tab) 400 mg PO DAILY [facility] Stop: 12/26/20 08:59 Last Admin: 11/27/20 09:42 Dose: 400 mg Documented by: Metoprolol Tartrate (Metoprolol Tartrate 25 Mg Tab) 12.5 mg PO BID [facility] Stop: 12/25/20 17:19 Last Admin: 11/27/20 09:01 Dose: 12.5 mg Documented by: Multivitamins (Multivitamin Tab) 1 tab PO QAM [facility] Stop: 12/26/20 08:59 Last Admin: 11/27/20 09:03 Dose: 1 tab Documented by: Naloxone HCl (Naloxone Hcl 0.4 Mg/1 Ml Vial/Carp) 0.1 mg IV UD PRN PRN Reason: Opiate Overdose Stop: 12/25/20 17:19 Ondansetron HCl (Ondansetron Inj 2 Mg/Ml 2 Ml Vial) 4 mg IV Q6H PRN PRN Reason: Nausea Stop: 12/25/20 17:19 Pantoprazole Sodium (Pantoprazole 40 Mg Tab) 40 mg PO BID JACQUELYN Stop: 12/25/20 20:59 Last Admin: 11/27/20 09:03 Dose: 40 mg Documented by: Polyethylene Glycol (Polyethylene (Miralax) 17 Gm Pack) 17 gm PO DAILY PRN PRN Reason: Constipation Stop: 12/25/20 17:19 Potassium Chloride (Potassium Chloride 10 Meq Tabcr) 10 meq PO BID JACQUELYN Stop: 12/25/20 20:59 Last Admin: 11/27/20 08:59 Dose: 10 meq Documented by: Rifaximin (Rifaximin 550 Mg Tablet) 550 mg PO BID JACQUELYN Stop: 12/25/20 20:59 Last Admin: 11/27/20 09:02 Dose: 550 mg Documented by: Senna/Docusate Sodium (Docusate Sodium/Senna 50/8.6mg Tab) 2 tab PO HS JACQUELYN Stop: 12/25/20 20:59 Last Admin: 11/26/20 20:09 Dose: 2 tab Documented by: Sucralfate (Sucralfate 1 Gm Tab) 1 gm PO BID PRN PRN Reason: Stomach Upset Stop: 12/25/20 17:19 Last Admin: 11/27/20 09:02 Dose: 1 gm Documented by: Torsemide (Torsemide 20 Mg Tab) 20 mg PO DAILY JACQUELYN Stop: 12/26/20 08:59 Last Admin: 11/27/20 09:01 Dose: 20 mg Documented by: Vitamin D (Cholecalciferol 1,000 Units 25 Mcg Tab) 4,000 units PO QAM JACQUELYN Stop: 12/26/20 08:59 Last Admin: 11/27/20 09:02 Dose: 4,000 units Documented by: (1) Cirrhosis Ascites presence: with ascites Hepatic cirrhosis type: unspecified hepatic cirrhosis Qualified Code(s): K74.60 - Unspecified cirrhosis of liver; R18.8 - Other ascites (2) Anemia, iron deficiency Iron deficiency anemia type: unspecified iron deficiency Qualified Code(s): D50.9 - Iron deficiency anemia, unspecified
[2020-11-27] MEDS ORDERED: KETOROLAC TROMETHAMINE 15 MG/ML VIAL IV ONE (18:16)
[2020-11-27] MEDS ORDERED: MoRPHine SULFATE 2 MG/ML CARP IV STA (18:20)
[2020-11-27] MEDS: AMITRIPTYLINE HCL 50 MG TAB PO SCH (20:09)
[2020-11-27] MEDS: DOCUSATE SODIUM/SENNA 50/8.6MG TAB PO SCH (20:12)
[2020-11-27] MEDS ORDERED: CYCLOBENZAPRINE HCL 5 MG TAB PO STA (23:06)
[2020-11-28] MEDS: LEVOTHYROXINE SODIUM 75 MCG TABLET PO SCH (05:41)
[2020-11-28 07:30] LABS: Hematocrit (blood only) 32.9 % (37-47); Hemoglobin 10.6 g/dL (12.0-16.0); Mean Corpuscular Hemoglobin 29.4 pg (25-34); Mean Corpuscular Hgb Conc 32.2 g/dL (32-36); Mean Corpuscular Volume 91.4 fL (80-100); Mean Platelet Volume 10.2 fL (7.4-10.4); Platelet Count 176 K/uL (130-400); RDW Coefficient of Variation 15.7 % (11.5-14.5); RDW Standard Deviation 50.6 fL (36.4-46.3); White Blood Count 3.75 K/uL (4.8-10.8)
[2020-11-28] MEDS: HYDROmorphone HCL 2 MG TAB PO PRN (07:55)
[2020-11-28 08:04] LABS: BUN Creatinine Ratio 19.2 (10-20); Calcium 8.8 mg/dl (8.5-10.1); Creatinine Clr Calc Pharmacy 49.6 ml/min; Est GFR (African American) 55.4; Est GFR (Non-African American) 47.8; Potassium 4.3 mmol/L (3.5-5.1)
[2020-11-28] MEDS: GABAPENTIN 300 MG CAP PO SCH (09:14)
[2020-11-28] MEDS: FERROUS SULFATE ELIX 220MG/5ML PO SCH (09:14)
[2020-11-28] MEDS: POTASSIUM CHLORIDE 10 MEQ TABCR PO SCH (09:14)
[2020-11-28] MEDS: PANTOprazole 40 MG TAB PO SCH (09:15)
[2020-11-28] MEDS: CHOLECALCIFEROL 1,000 UNITS 25 MCG TAB PO SCH (09:15)
[2020-11-28] MEDS: CETIRIZINE HCL 10 MG TABLET PO SCH (09:15)
[2020-11-28] MEDS: MAGNESIUM OXIDE 400 MG TAB PO SCH (09:16)
[2020-11-28] MEDS: TORSEMIDE 20 MG TAB PO SCH (09:16)
[2020-11-28] MEDS: DULoxetine HCL 60 MG CAP PO SCH (09:16)
[2020-11-28] MEDS: MULTIVITAMIN TAB PO SCH (09:16)
[2020-11-28] MEDS: CYANOCOBALAMIN 500 MCG TABLET (VITAMIN B-12) PO SCH (09:16)
[2020-11-28] MEDS: rifAXIMin 550 MG TABLET PO SCH (09:17)
[2020-11-28] MEDS: METOPROLOL TARTRATE 25 MG TAB PO SCH (09:17)
[2020-11-28] MEDS ORDERED: KETOROLAC TROMETHAMINE 15 MG/ML VIAL IV PRN (10:50)
--- NOTE | 2020-11-28 11:19 | Hospitalist Progress Note ---
Date of Service November 28, 2020 Assessment & Plan (1) Acute right hip pain: History of right acetabular fracture in September of last year Increasing pain in the right hip MRI did show-healing subacute fracture is again noted involving the anterosuperior wall of the acetabulum,\ Avascular necrosis of the anterosuperior humeral head with subchondral fracture and articular collapse as above. These findings have progressively worsened from the 09/02/2020 exam. There is a considerable amount of bone marrow edema involving the right femoral head, neck and intertrochanteric distribution which may be reactive from the aforementioned changes, however linear signal abnormality within the intertrochanteric distribution raises the possibility of a subtle acute nondisplaced intertrochanteric fracture. Moderate joint effusion with likely reactive edema of the right abductor musculature and proximal quadriceps. These findings are likely reactive with superimposed infectious etiology considered less likely. Appreciate Ortho input and recommendation Continue PT as recommended Will need to have follow-up appointment with [place] specially for the knee (2) Ambulatory dysfunction: Pt is 60 y/o F with PMH DAVIS/Alcoholic cirrhosis, hypothyroidism, CKD III, depression, iron deficiency anemia presented to ER with c/o right hip pain. Patient with history of fall in 09/2020 resulting in closed right acetabular fractureRecently has been partial weightbearing. mechanical fall 4 days ago and progressive right hip pain and ambulatory dysfunction Has avascular necrosis of the right femoral head Ongoing pain in the right knee joint with history of right knee surgery in the past Appreciate Ortho input and recommendation Discussed w/ ortho - pt needs her R knee fixed first in [place] by ortho. - [facility] liaison informed by outrashid GONCALVES that pt was difficult to follow up - and often would not allow HH to come in to her house, pt is in high risk of falling and injuring herself, it is recommended that she would go to rehab/ snf She seems to be stable today and the pain is reasonably controlled She will be transferred to [facility] this afternoon -Continue home Dilaudid po use Imaging studies as below: FEMUR CT/CT PELVIS: 1. No acute fracture is seen involving the sacrum and bony pelvis. 2. There is a subacute/healing fracture involving the anterosuperior right acetabulum. 3. Again seen is evidence of avascular necrosis of the right femoral head. There is subchondral collapse and fragmentation of the right femoral head which is new from 09/02/2020. This is likely related to avascular necrosis; however, acute posttraumatic change is not excluded. 4. No additional findings are concerning for acute right femoral fracture. 5. There is postoperative change from fusion of the right knee joint. The orthopedic hardware appears intact. 6. Right hip joint effusion with calcified joint bodies. L-SPINE CT: 1. No acute bony abnormality is seen involving the lumbar spine. 2. Osteopenia and spondylotic change as above. 3. A mild chronic compression deformity of L1 is unchanged from previous. Atrial tachycardia - pt was evaluated by cardiology as outpt - they were trying to contact her but were not successful - outpt study did not show definitive atrial fibrillation but showed multiple runs of atrial tachycardia, w/ avg. HR 105 - recommended to increase her metoprolol to 25 mg BID - I discussed this with the pt and increased her metoprolol, will cont. to monitor VS while inpt (3) Cirrhosis: DAVIS/Alcoholic cirrhosis Last drink reported one week ago. No mental status change or volume overload at this time -Continue rifaximin, lactulose as needed, torsemide (4) CKD (chronic kidney disease) stage 3, GFR 30-59 ml/min: Cr: 0.97. At baseline Monitor renal functions, avoid nephrotoxic agents when possible Creatinine is at her baseline which is 1.24 as of 11/28/2020 (5) Hypothyroidism: Continue levothyroxine (6) Anemia, iron deficiency: Hgb:10. baseline in 9's -Continue iron supplement (7) Depression: -Continue duloxetine DVT Prophylaxis -SCDs Full Code as per discussion with pt Follows with Dr Bro for routine care Will be discharged to [facility] this afternoon Admission and Anticipated Discharge Date Admission Date: November 27, 2020 Subjective 11/28/2020 The patient was seen and examined in medical floor Pt is 60 y/o F with PMH DAVIS/Alcoholic cirrhosis, hypothyroidism, CKD III, depression, iron deficiency anemia presented to ER with c/o right hip pain with history of right acetabular fracture following fall on 09/2020 She has been complaining of pain in the right knee and right hip Has been getting physical therapy and will be sent to [facility] this afternoon to continue PT. Review of Systems Review of Systems: All systems reviewed and are unremarkable except as noted below Musculoskeletal: Has severe osteoarthritis involving mainly the knees and right hip with avascular necrosis Physical Exam Physical Exam: Sitting at the edge of the bed with some discomfort secondary to pain in the joints Constitutional: well developed and + acute distress (Due to pain in right hip and bilateral knees); not ill appearing Eyes: PERRL, conjunctivae normal, anicteric sclerae ENMT: external ear and nose normal, oropharynx normal Neck: trachea midline, no thyromegaly Respiratory: normal respiratory effort Auscultation: lungs clear to auscultation bilaterally Cardiovascular: Rate/Rhythm: regular rate Heart Sounds: no murmur Extremities: no edema Gastrointestinal (Abdomen): Inspection/Auscultation: normal bowel sounds; abdomen not distended Percussion/Palpation: abdomen soft; abdomen nontender Musculoskeletal: Hip: + limited ROM of hip (Right hip with pain) Knee: + knee abnormal to inspection (Osteoarthritic changes in both knees with evidence of right knee surgery. ) Neurologic: Alert, awake and oriented x3. No focal sensory and motor deficit appreciated Psychiatric: A+Ox3, euthymic affect Lymphatic: no cervical or axillary lymphadenopathy Results & Data Results & Data ([facility]) Vital Signs (Past 12 Hours) Vital Signs Temp Pulse Resp BP Pulse Ox 11/28/20 07:06 36.8 C 82 16 144/89 H 95 11/27/20 23:40 36.7 C 77 20 142/91 H 97 Laboratory Results Short CBC 11/28/20 Range/Units 07:06 WBC 3.75 L (4.8-10.8) K/uL Hgb 10.6 L (12.0-16.0) g/dL Hct 32.9 L (37-47) % Plt Count 176 (130-400) K/uL BMP 11/28/20 07:06 Sodium 134 L Potassium 4.3 Chloride 103 Carbon Dioxide 23 BUN 24 H Creatinine 1.24 H Glucose 90 Calcium 8.8 Medications Administered Current Inpatient Medications Acetaminophen (Acetaminophen 325 Mg Tab) 650 mg PO Q4H PRN PRN Reason: pain/fever Stop: 12/25/20 17:19 Last Admin: 11/27/20 13:58 Dose: 650 mg Documented by: Amitriptyline HCl (Amitriptyline Hcl 50 Mg Tab) 50 mg PO HS JACQUELYN Stop: 12/25/20 20:59 Last Admin: 11/27/20 20:09 Dose: 50 mg Documented by: Bisacodyl (Bisacodyl 10 Mg Supp) 10 mg CA DAILY PRN PRN Reason: Constipation Stop: 12/25/20 17:19 Cetirizine HCl (Cetirizine Hcl 10 Mg Tablet) 10 mg PO QAM [facility] Stop: 12/26/20 08:59 Last Admin: 11/28/20 09:15 Dose: 10 mg Documented by: Cyanocobalamin (Cyanocobalamin 500 Mcg Tablet (Vitamin B-12)) 1,000 mcg PO QAM [facility] Stop: 12/26/20 08:59 Last Admin: 11/28/20 09:16 Dose: 1,000 mcg Documented by: Cyclobenzaprine HCl (Cyclobenzaprine Hcl 10 Mg Tab) 10 mg PO HS PRN PRN Reason: Muscle Spasm Stop: 12/25/20 17:27 Last Admin: 11/27/20 13:57 Dose: 10 mg Documented by: Duloxetine HCl (Duloxetine Hcl 60 Mg Cap) [facility] [place] Stop: 12/26/20 08:59 Last Admin: 11/28/20 09:16 Dose: 60 mg Documented by: Ferrous Sulfate (Ferrous Sulfate Elix 220mg/5ml) 220 mg PO DAILY [facility] Stop: 12/26/20 08:59 Last Admin: 11/28/20 09:14 Dose: 220 mg Documented by: Gabapentin (Gabapentin 300 Mg Cap) 300 mg PO BID [facility] Stop: 12/25/20 20:59 Last Admin: 11/28/20 09:14 Dose: 300 mg Documented by: Hydromorphone HCl (Hydromorphone Hcl 2 Mg Tab) 1 - 2 mg PO TID PRN PRN Reason: Pain Stop: 12/09/20 17:19 Last Admin: 11/28/20 07:55 Dose: 1 mg Documented by: Ketorolac Tromethamine (Ketorolac Tromethamine 15 Mg/Ml Vial) 15 mg IV Q6H PRN PRN Reason: Pain Stop: 12/03/20 10:49 Lactulose (Lactulose Syrup 30 Gm/45 Ml Udp) 30 gm PO DAILY PRN PRN Reason: Other Stop: 12/25/20 17:36 Last Admin: 11/27/20 20:08 Dose: 30 gm Documented by: Levothyroxine Sodium (Levothyroxine Sodium 75 Mcg Tablet) 75 mcg PO DAILYBB [facility] Stop: 12/26/20 06:29 Last Admin: 11/28/20 05:41 Dose: 75 mcg Documented by: Magnesium Hydroxide (Magnesium Hydroxide Susp 30 Ml Udc) 30 ml PO DAILY PRN PRN Reason: Constipation Stop: 12/25/20 17:19 Magnesium Oxide (Magnesium Oxide 400 Mg Tab) 400 mg PO DAILY [facility] Stop: 12/26/20 08:59 Last Admin: 11/28/20 09:16 Dose: 400 mg Documented by: Metoprolol Tartrate (Metoprolol Tartrate 25 Mg Tab) 25 mg PO BID JACQUELYN Stop: 12/27/20 20:59 Last Admin: 11/28/20 09:17 Dose: 25 mg Documented by: Multivitamins (Multivitamin Tab) 1 tab PO QAM [facility] Stop: 12/26/20 08:59 Last Admin: 11/28/20 09:16 Dose: 1 tab Documented by: Naloxone HCl (Naloxone Hcl 0.4 Mg/1 Ml Vial/Carp) 0.1 mg IV UD PRN PRN Reason: Opiate Overdose Stop: 12/25/20 17:19 Ondansetron HCl (Ondansetron Inj 2 Mg/Ml 2 Ml Vial) 4 mg IV Q6H PRN PRN Reason: Nausea Stop: 12/25/20 17:19 Pantoprazole Sodium (Pantoprazole 40 Mg Tab) 40 mg PO BID [facility] Stop: 12/25/20 20:59 Last Admin: 11/28/20 09:15 Dose: 40 mg Documented by: Polyethylene Glycol (Polyethylene (Miralax) 17 Gm Pack) 17 gm PO DAILY PRN PRN Reason: Constipation Stop: 12/25/20 17:19 Potassium Chloride (Potassium Chloride 10 Meq Tabcr) 10 meq PO BID JACQUELYN Stop: 12/25/20 20:59 Last Admin: 11/28/20 09:14 Dose: 10 meq Documented by: Rifaximin (Rifaximin 550 Mg Tablet) 550 mg PO BID [facility] Stop: 12/25/20 20:59 Last Admin: 11/28/20 09:17 Dose: 550 mg Documented by: Senna/Docusate Sodium (Docusate Sodium/Senna 50/8.6mg Tab) 2 tab PO HS [facility] Stop: 12/25/20 20:59 Last Admin: 11/27/20 20:12 Dose: 2 tab Documented by: Sucralfate (Sucralfate 1 Gm Tab) 1 gm PO BID PRN PRN Reason: Stomach Upset Stop: 12/25/20 17:19 Last Admin: 11/27/20 09:02 Dose: 1 gm Documented by: Torsemide (Torsemide 20 Mg Tab) 20 mg PO DAILY [facility] Stop: 12/26/20 08:59 Last Admin: 11/28/20 09:16 Dose: 20 mg Documented by: Vitamin D (Cholecalciferol 1,000 Units 25 Mcg Tab) 4,000 units PO QAM [facility] Stop: 12/26/20 08:59 Last Admin: 11/28/20 09:15 Dose: 4,000 units Documented by: (1) Cirrhosis Ascites presence: with ascites Hepatic cirrhosis type: unspecified hepatic cirrhosis Qualified Code(s): K74.60 - Unspecified cirrhosis of liver; R18.8 - Other ascites (2) Anemia, iron deficiency Iron deficiency anemia type: unspecified iron deficiency Qualified Code(s): D50.9 - Iron deficiency anemia, unspecified
[2020-11-28] MEDS: ACETAMINOPHEN 325 MG TAB PO PRN (14:06)
--- NOTE | 2020-11-29 08:21 | Discharge Summary ---
Date of Service November 29, 2020 Admission HPI Per Admitting Provider Pt is 60 y/o F with PMH DAVIS/Alcoholic cirrhosis, hypothyroidism, CKD III, depression, iron deficiency anemia presented to ER with c/o right hip pain. Patient with history of fall in 09/2020 resulting in closed right acetabular fracture, was hospitalized then discharged to rehab and then home. Patient states was initially nonweightbearing and recently has been partial weightbearing. She states 4 days ago she was trying to get up and lost balance and fell onto her right hip. Patient reports has had progressive right hip pain since fall and is now unable to ambulate. Denies hitting head, denies back pain. Denies any other injury. Denies extremity paresthesias. Reports last had couple of glasses of wine 1 week ago. Denies fever/chills, diaphoresis, N/V/D/C, TAVAREZ, dizziness, syncope, vision changes, neck pain, CP, SOB, orthopnea, palpitations, cough, sore throat, choking, otalgia, rhinorrhea, abdominal pain, extremity edema, rashes, urinary symptoms. Admission Exam Per Admitting Provider General: Well nourished, well hydrated, no acute distress Eyes: PERRL, conjunctivae normal, not pale, anicteric sclerae, EOM intact bilaterally ENMT: External ear and nose normal, oropharynx normal Neck: Normal visual inspection, no tracheal deviation, no swelling noted Respiratory: Normal respiratory effort, no respiratory distress, lungs clear to auscultation, no crackles and no wheezes Cardiovascular: RRR, S1 S2 Gastrointestinal (Abdomen): Abdomen is not distended, soft, non-tender to palpation, no guarding, no palpable hepatosplenomegaly, normal bowel sounds Musculoskeletal: Tenderness over right hip. Limited movement of RLE due to pain Neurologic: Alert and oriented x 3, sensation grossly intact Psychiatric: Alert and oriented x 3, euthymic affect Principal Diagnosis Acute right hip pain, avascular necrosis of the femoral head, ambulatory dy sfunction, cirrhosis of liver, hypothyroidism Discharge Exam Constitutional well developed and + acute distress (Due to pain in right hip and bilateral knees); not ill appearing Eyes PERRL, conjunctivae normal, anicteric sclerae ENMT external ear and nose normal, oropharynx normal Neck trachea midline, no thyromegaly Respiratory normal respiratory effort Auscultation: lungs clear to auscultation bilaterally Cardiovascular Rate/Rhythm: regular rate Heart Sounds: no murmur Extremities: no edema Gastrointestinal (Abdomen) Inspection/Auscultation: normal bowel sounds; abdomen not distended Percussion/Palpation: abdomen soft; abdomen nontender Musculoskeletal Hip: + limited ROM of hip (Right hip with pain) Knee: + knee abnormal to inspection (Osteoarthritic changes in both knees with evidence of right knee surgery. ) Psychiatric A+Ox3, euthymic affect Lymphatic no cervical or axillary lymphadenopathy Discharge Data Allergies Allergy/AdvReac Type Severity Reaction Status Date / Time cefaclor Allergy Intermediate Swelling Verified 11/25/20 12:25 oxycodone Allergy Intermediate HIVES Verified 11/25/20 12:25 amoxicillin Allergy Mild Nausea Verified 11/25/20 12:25 ceftriaxone [From Rocephin] Allergy Rash Verified 11/25/20 12:25 metronidazole [From Flagyl] Allergy Rash Verified 11/25/20 12:25 Consultations 11/25/20 14:30 ED Decision to Admit Stat 11/25/20 17:20 Consult Case Management - Discharge Planning Routine Consult Orthopedic Surgery Routine Ordered Studies 11/25/20 11:07 CT femur RT wo con Stat CT lumbar spine wo con Stat CT pelvis wo con Stat 11/26/20 10:33 MR hip RT wo con Routine Hospital Course (1) Acute right hip pain: History of right acetabular fracture in September of last year Increasing pain in the right hip MRI did show-healing subacute fracture is again noted involving the anterosuperior wall of the acetabulum,\ Avascular necrosis of the anterosuperior humeral head with subchondral fracture and articular collapse as above. These findings have progressively worsened from the 09/02/2020 exam. There is a considerable amount of bone marrow edema involving the right femoral head, neck and intertrochanteric distribution which may be reactive from the aforementioned changes, however linear signal abnormality within the intertrochanteric distribution raises the possibility of a subtle acute nondisplaced intertrochanteric fracture. Moderate joint effusion with likely reactive edema of the right abductor musculature and proximal quadriceps. These findings are likely reactive with superimposed infectious etiology considered less likely. Appreciate Ortho input and recommendation Continue PT as recommended Will need to have follow-up appointment with [place] specially for the [place] (2) Ambulatory dysfunction: Pt is 60 y/o F with PMH DAVIS/Alcoholic cirrhosis, hypothyroidism, CKD III, depression, iron deficiency anemia presented to ER with c/o right hip pain. Patient with history of fall in 09/2020 resulting in closed right acetabular fractureRecently has been partial weightbearing. mechanical fall 4 days ago and progressive right hip pain and ambulatory dysfunction Has avascular necrosis of the right femoral head Ongoing pain in the right knee joint with history of right knee surgery in the past Appreciate Ortho input and recommendation Discussed w/ ortho - pt needs her R knee fixed first in [place] by ortho. - [facility] liaison informed by outpt CM that pt was difficult to follow up - and often would not allow HH to come in to her house, pt is in high risk of falling and injuring herself, it is recommended that she would go to rehab/ snf She seems to be stable today and the pain is reasonably controlled She will be transferred to [facility] this afternoon -Continue home Dilaudid po use Imaging studies as below: FEMUR CT/CT PELVIS: 1. No acute fracture is seen involving the sacrum and bony pelvis. 2. There is a subacute/healing fracture involving the anterosuperior right acetabulum. 3. Again seen is evidence of avascular necrosis of the right femoral head. There is subchondral collapse and fragmentation of the right femoral head which is new from 09/02/2020. This is likely related to avascular necrosis; however, acute posttraumatic change is not excluded. 4. No additional findings are concerning for acute right femoral fracture. 5. There is postoperative change from fusion of the right knee joint. The orthopedic hardware appears intact. 6. Right hip joint effusion with calcified joint bodies. L-SPINE CT: 1. No acute bony abnormality is seen involving the lumbar spine. 2. Osteopenia and spondylotic change as above. 3. A mild chronic compression deformity of L1 is unchanged from previous. Atrial tachycardia - pt was evaluated by cardiology as outpt - they were trying to contact her but were not successful - outpt study did not show definitive atrial fibrillation but showed multiple runs of atrial tachycardia, w/ avg. HR 105 - recommended to increase her metoprolol to 25 mg BID - I discussed this with the pt and increased her metoprolol, will cont. to monitor VS while inpt (3) Cirrhosis: DAVIS/Alcoholic cirrhosis Last drink reported one week ago. No mental status change or volume overload at this time -Continue rifaximin, lactulose as needed, torsemide (4) CKD (chronic kidney disease) stage 3, GFR 30-59 ml/min: Cr: 0.97. At baseline Monitor renal functions, avoid nephrotoxic agents when possible Creatinine is at her baseline which is 1.24 as of 11/28/2020 (5) Hypothyroidism: Continue levothyroxine (6) Anemia, iron deficiency: Hgb:10. baseline in 9's -Continue iron supplement (7) Depression: -Continue duloxetine DVT Prophylaxis -SCDs Full Code as per discussion with pt Follows with Dr Bro for routine care Will be discharged to [facility] this afternoon Total Time Total Time Spent Total Time Spent (In Minutes): 35 minutes Total Time Includes: Examination of the Patient, Discharge Planning, Medication Reconciliation and Communication With Other Providers Discharge Plan Discharge Items Patient Disposition: Transfer Inpatient Rehab Fac Reason For Visit: HIP PAIN Discharge Diagnosis: Acute right hip pain, avascular necrosis of the femoral head, ambulatory dysfunction, cirrhosis of liver, hypothyroidism Condition on Discharge: Good Activity: Per Instructions section Activity Comment: Continue PT Weightbearing: Right toe touch Weightbearing Comment: Toe touch weightbearing on right leg with walker Non-emergency contact: Primary Care Provider Call non-emergency contact if: you have any medication questions and your symptoms worsen Follow-up/Referrals: Naresh Bro MD [Primary Care Provider] - Savita Herman CRNP [Nurse Practitioner] - (Osteoporosis work up) Diet: Regular and Low Sodium (2gm) Addtl Attending Provider Instructions: Please take precaution to avoid falls Keep follow-up appointment with orthopedic surgeon Pending Studies at Discharge: No Stand-Alone Forms: My [facility] Skilled Items Patient informed of condition?: Yes DNR: No Discharge Level of Care: Skilled Communicable Disease: No Discharge Prognosis: Stable Lines: None Urinary Catheter: No Medications and DC Order Prescriptions: Continued Xifaxan 550 mg tablet 550 mg PO BID RF: 0 cholecalciferol (vitamin D3) [Vitamin D3] 2,000 unit capsule 4,000 unit PO QAM RF: 0 pantoprazole [Protonix] 40 mg Tablet,Delayed Release (Dr/Ec) 40 mg PO BID RF: 0 duloxetine [Cymbalta] 60 mg Capsule,Delayed Release(Dr/Ec) 60 mg PO QAM RF: 0 cetirizine [Zyrtec] 10 mg tablet 10 mg PO QAM RF: 0 cyclobenzaprine 10 mg tablet 10 mg PO HS PRN (Reason: Muscle Spasm) RF: 0 amitriptyline 50 mg tablet 50 mg PO HS RF: 0 multivitamin Tablet 1 tab PO QAM RF: 0 cyanocobalamin (vitamin B-12) [Vitamin B-12] 1,000 mcg Tablet 1,000 mcg PO QAM RF: 0 gabapentin 300 mg Capsule 300 mg PO BID Qty: 60 RF: 0 hydromorphone [Dilaudid] 2 mg tablet See Rx Instructions .ROUTE .COMPLEX PRN (Reason: Pain) RF: 0 potassium chloride 10 mEq capsule, extended release 10 meq PO BID RF: 0 torsemide 20 mg tablet 20 mg PO DAILY RF: 0 sucralfate 1 gram tablet 1 g PO BID PRN (Reason: Stomach Upset) RF: 0 magnesium oxide 400 mg magnesium Capsule 400 mg PO DAILY RF: 0 ferrous sulfate 220 mg (44 mg iron)/5 mL elixir 220 mg PO DAILY RF: 0 levothyroxine 75 mcg Tablet 75 mcg PO DAILY RF: 0 lactulose 10 gram/15 mL solution 45 ml PO DAILY PRN (Reason: Other) RF: 0 Changed metoprolol tartrate 25 mg tablet 25 mg PO BID Qty: 0 RF: 0 Discharge Orders: Discharge Order (Routine); Ordered 11/28/20 Ordered By: Malissa Foley Admission Data Admit Date/Time: 11/27/20 10:37 Attending Provider: Malissa Foley Admit Provider: Micki Schumacher I. Primary Care Provider: Naresh Bro Other Providers: Alfonso Jones ; Micki Schumacher I. ; [facility] ; Tolu Yanes Other Interventions: Discharge Summary Assessment (RN) Last Done: 11/28/20 12:08
== END 2020-11-28 17:49 | DRG 554 ==
LOC: 2N 10:47 → ED 10:47 → SUATTDRO 15:11 → 2N 17:02 → 3N 11-26 20:11 → SUATTDRO 11-27 10:37

== ENCOUNTER 2020-12-10 21:35 | Observation (INO) ==
[2020-12-10] MEDS ORDERED: KETOROLAC TROMETHAMINE 15 MG/ML VIAL IV STA (21:48)
--- NOTE | 2020-12-10 22:34 | Emergency Department Note ---
History of Present Illness General Chief complaint: Hip Pain Stated complaint: RT. HIP PAIN Time Seen by Provider: 12/10/20 21:41 History of Present Illness Maximum Pain Intensity: 9 This 60-year-old presents to the ER complaining of ongoing right hip pain who was just discharged from this facility to rehab Location: Right hip Quality: Painful Severity: Moderate Duration: Past few months Timing: Started few months ago Context: Patient states the pain was worse and came in to get readmitted Modifying factors: better with nothing; worse with palpation Patient states has been taking Tylenol with no relief of symptoms. She left rehab on Thursday. She lives alone. She has no one to care for her. Patient denies any fall, chest pain, dyspnea, fevers, flulike illness. Patient had extensive work-up when she was admitted to the hospital to include x-rays CT and MRI. Orthopedics evaluated her. Home Medications Medication Instructions Recorded Confirmed Type cyanocobalamin (vitamin B-12) 1,000 mcg PO QAM 08/22/18 12/10/20 History [Vitamin B-12] multivitamin 1 tab PO QAM 08/22/18 12/10/20 History Xifaxan 550 mg PO BID 10/03/18 12/10/20 History cholecalciferol (vitamin D3) 4,000 unit PO QAM 10/03/18 12/10/20 History [Vitamin D3] duloxetine [Cymbalta] 60 mg PO QAM 07/19/19 12/10/20 History pantoprazole [Protonix] 40 mg PO BID 07/19/19 12/10/20 History cetirizine [Zyrtec] 10 mg PO QAM 04/05/20 12/10/20 History gabapentin 300 mg PO BID #60 cap 06/23/20 12/10/20 Rx amitriptyline 50 mg PO HS 09/02/20 12/10/20 History cyclobenzaprine 10 mg PO HS PRN 09/02/20 12/10/20 History ferrous sulfate 220 mg PO DAILY 11/25/20 12/10/20 History hydromorphone [Dilaudid] See Rx Instructions .ROUTE 11/25/20 12/10/20 History .COMPLEX PRN lactulose 45 ml PO DAILY PRN 11/25/20 12/10/20 History levothyroxine 75 mcg PO DAILY 11/25/20 12/10/20 History magnesium oxide 400 mg PO DAILY 11/25/20 12/10/20 History potassium chloride 10 meq PO BID 11/25/20 12/10/20 History sucralfate 1 g PO BID PRN 11/25/20 12/10/20 History torsemide 20 mg PO DAILY 11/25/20 12/10/20 History metoprolol tartrate 25 mg PO BID #0 tab 11/28/20 12/10/20 Rx Allergies Allergy/AdvReac Type Severity Reaction Status Date / Time cefaclor Allergy Intermediate Swelling Verified 12/10/20 23:30 oxycodone Allergy Intermediate HIVES Verified 12/10/20 23:30 amoxicillin Allergy Mild Nausea Verified 12/10/20 23:30 ceftriaxone [From Rocephin] Allergy Rash Verified 12/10/20 23:30 metronidazole [From Flagyl] Allergy Rash Verified 12/10/20 23:30 Past Med/Surg History Medical History REJI (acute kidney injury) Anemia, iron deficiency Ascites Cirrhosis CKD (chronic kidney disease) stage 3, GFR 30-59 ml/min Depression Gastric peptic ulcer Hypothyroidism Neuropathy of both feet On anticoagulant therapy warfarin daily Surgical History History of arthrodesis left leg History of arthroplasty of right shoulder unable to lift arm after sx History of arthroscopy of left knee x2 History of arthroscopy of right knee x7 History of cardiac cath 2011--no stents History of cholecystectomy History of colonoscopy History of esophagogastroduodenoscopy (EGD) History of gastric bypass History of open reduction and internal fixation (ORIF) procedure left tib/fib fx--hardware in place History of surgery on extremity 2016--right leg hardware in place per pt a "fusion of her leg" History of tooth extraction all teeth removed History of total right knee replacement (TKR) 2006 Family History Sister Breast cancer Mother Hypertension Diabetes Other No family history of adverse response to anesthesia Social History Smoking Status: Never smoker Second Hand Exposure: No; Hx Alcohol Use: Yes Alcohol type: wine Alcohol Intake Frequency: 4 or More x per/Week Alcohol Intake Frequency Comment: Pt states now drinks approx twice a week Hx Substance Use: No Preferred Language: Greenlandic Communication Ability: Effective 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 Beliefs That Will Affect Care: None Current Living Situation: Alone Feels Safe at Home: Yes Assistive Devices: Glasses Review of Systems A total of 10 systems reviewed and were otherwise negative Physical Exam Vital Signs Vital Signs - 24 hr 12/10/20 21:51 12/10/20 23:30 Temperature 36.6 C Temperature Source Oral Pulse Rate 90 Pulse Rate [Apical] 92 H Respiratory Rate 20 18 Respiratory Effort / Characteristics Non-Labored Spontaneous Non-Labored Spontaneous Respiratory Depth Normal Normal Respiratory Pattern Regular Blood Pressure 148/95 H Blood Pressure [Left Arm] 120/69 Blood Pressure Mean 112 Blood Pressure Mean [Left Arm] 86 Blood Pressure Position Semi-fowlers Blood Pressure Position [Left Arm] Lying Pulse Oximetry 99 94 Oxygen Delivery Method Room Air Room Air Sepsis Recent Fever Within 48 Hours No Sepsis New/Unexplained Change in Mental Status N/A Sepsis Action Taken by Nursing No Action Required VITALS: Vitals are noted on the nurse's note and reviewed by myself. Vital signs stable. GENERAL: Tearful female who keeps pulling down her mask, in no acute distress, nondiaphoretic, well-developed well-nourished. SKIN: Capillary reflex less than 2 seconds. HEENT: Normocephalic. PERRLA. EOMI. Nares patent. Mucous membranes moist. Neck is supple without nuchal rigidity. HEART: Regular rate and rhythm LUNGS: Clear to auscultation bilaterally without wheezes, rales or rhonchi. No retractions or accessory muscle use. ABDOMEN: Positive bowel sounds x 4. Normal tympanic percussion. Soft, nontender, without masses or organomegaly. Mcghee sign negative. No guarding or rebound tenderness. MUSCULOSKELETAL: No gross musculoskeletal defects. Right hip tender to palpation. No thoracic or lumbar tenderness on exam. NEURO: Patient was alert and oriented to person place and time. Normal sensation to light and sharp touch. No focal neurological deficits. Course Administered Medications Discontinued Medications Ketorolac Tromethamine (Ketorolac Tromethamine 15 Mg/Ml Vial) 10 mg IV NOW STA Stop: 12/10/20 21:49 Last Admin: 12/10/20 22:31 Dose: 10 mg Documented by: [id number] Medical Decision Making Medical Records Attestation: I reviewed the patient's medical records. Home Medications Current Medication List: was personally reviewed by me Laboratory Data Attestation: I reviewed the patient's lab results. Result diagrams: 12/10/20 22:45 12/10/20 22:45 Lab Results 12/10/20 12/10/20 Range/Units 22:45 22:45 WBC 3.50 L (4.8-10.8) K/uL RBC 3.57 L (4.2-5.4) M/uL Hgb 10.6 L (12.0-16.0) g/dL Hct 32.0 L (37-47) % MCV 89.6 (80-100) fL MCH 29.7 (25-34) pg MCHC 33.1 (32-36) g/dL RDW Std Deviation 53.0 H (36.4-46.3) fL RDW Coeff of Jake 16.2 H (11.5-14.5) % Plt Count 282 (130-400) K/uL MPV 9.8 (7.4-10.4) fL Immature Gran % (Auto) 0.0 % Neut % (Auto) 44.4 % Lymph % (Auto) 43.4 % [place] % (Auto) 9.1 % Eos % (Auto) 1.7 % Baso % (Auto) 1.4 % Neut # (Auto) 1.55 (1.4-6.5) K/uL Lymph # (Auto) 1.52 (1.2-3.4) K/uL [place] # (Auto) 0.32 (0.11-0.59) K/uL Eos # (Auto) 0.06 (0-0.5) K/uL Baso # (Auto) 0.05 (0-0.2) K/uL Immature Gran # (Auto) 0.00 (0.00-0.02) K/uL Sodium 138 (136-145) mmol/L Potassium 4.5 (3.5-5.1) mmol/L Chloride 108 H (98-107) mmol/L Carbon Dioxide 19 L (21-32) mmol/L Anion Gap 11.0 (3-11) BUN 13 (7-18) mg/dl Creatinine 0.91 (0.6-1.2) mg/dl Est Cr Clr Drug Dosing 70.4 ml/min Est GFR ( Amer) 80.6 Est GFR (Non-Af Amer) 69.5 BUN/Creatinine Ratio 14.4 (10-20) Glucose 81 (70-99) mg/dl Calcium 9.1 (8.5-10.1) mg/dl Imaging Data Attestation: I personally reviewed and interpreted this imaging study as follows: MDM Narrative Prior records reviewed and summarized above. Triage Nursing notes reviewed. Additional history obtained from nursing. The patient's history was concerning for chronic hip pain Differential diagnosis: Etiologies such as acute on chronic pain, fracture, dislocation, neurovascular compromise, compartment syndrome, soft tissue injury, as well as others were entertained. Physical examination: As above ER treatment provided: IV lock Toradol NPO Bedrest On reassessment the patient felt better. Diagnostics interpreted by me: The labs mild anemia Imaging studies: [facility], [id number] Magnetic Resonance Report Patient: Emily JARVIS Date: 11/25/20#: [id number]: [address]Acct ID:[id number]: [address]: [facility] Zip: [place] [id number]: 60Location: 2NSex: FRoom/Bed: [id number] Phy: Lauro Romero MDDiagnosis: HIP PAINPri Phy: Naresh Bro MDService Date: 11/26/20Fam Phy:Interpreting Phy: [facility] Phy: Micki Schumacher MD Ordering Phy: Eleno Ramirez PA-C cc: ~ MR hip RT wo con CLINICAL HISTORY: 60 years-old Female with h/o fx/AVN. Acute right hip pain COMPARISON: CT pelvis and right femur 11/25/2020 TECHNIQUE: Multiplanar, multi sequence MRI of the right hip was performed without intravenous contrast. FINDINGS: Lumbar levoscoliosis. Retroflexed uterus with nonspecific mild free pelvic fluid. Motion degraded exam. LABRUM: There is irregularity of the right anterosuperior labrum which is suboptimally visualized secondary to the aforementioned motion artifact. BONE MARROW: Marked bone marrow edema of the right femoral head and neck extending into the intertrochanteric distribution. Ill-defined linear areas of decreased T1 and T2 signal are noted within the intertrochanteric proximal femur. Avascular necrosis with subchondral fracture of the anterosuperior femoral head measures up to approximately 2.4 x 3.5 cm in transverse and AP dimensions. This results articular depression of approximately 4 mm. Healing subacute fracture of the anterosuperior acetabulum. BURSAE: There is no evidence for iliopsoas or trochanteric bursitis. HIP JOINT: Moderate narrowing of the right hip. Mild left hip osteoarthritis. Moderate right hip joint effusion. Tiny fractured intra-articular bone fragment seen are better seen on comparison CT study. MUSCLES: There is moderate subcutaneous edema lateral to the right hip. Edema surrounding the right femoral acetabular joint extends into the proximal thigh musculature, notably adjacent to the vastus lateralis and right abductor space SCIATIC NERVE: The morphology and signal characteristics of the sciatic nerve appear normal. IMPRESSION: 1. Motion degraded exam. 2. Healing subacute fracture is again noted involving the anterosuperior wall of the acetabulum. 3. 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 These findings have progressively worsened from the 09/02/2020 exam. There is a considerable amount of bone marrow edema involving the right femoral head, neck and intertrochanteric distribution which may be reactive from the aforementioned changes, however linear signal abnormality within the intertrochanteric distribution raises the possibility of a subtle acute nondisplaced intertrochanteric fracture. 4. Moderate joint effusion with likely reactive edema of the right abductor musculature and proximal quadriceps. These findings are likely reactive with superimposed infectious etiology considered less likely. ACT 112: Negative or not required by law. The above report was generated using voice recognition software. It may contain grammatical, syntax or spelling errors. Electronically signed by: Renan Campos M.D. 11/26/2020 2:57 PM Dictated: 11/26/201432Transcribed: 11/26/201432 Exam and history seem consistent with ongoing hip pain. Patient is requesting admission. Medicine was consulted. She will be evaluated for possible admiss ion. She was informed that the admission be for placement to rehab. Consultation: A consultation was placed with medicine, Dr. Matute. The case was discussed and diagnostics were reviewed. The patient was evaluated in the ER for further treatment. The chart was completed utilizing [employer] Speech voice recognition software. Grammatical errors, random word insertions, pronoun errors, and incomplete sentences are an occassional consequence of this system due to software limitations, ambient noise, and hardware issues. Any formal questions or concerns about the content, text, or information contained within the body of this dictation should be directly addressed to the physician dietetic assistant for clarification. Impression & Plan Hip pain Discharge Plan Visit Data Chief Complaint: Hip Pain Stated Complaint: RT. HIP PAIN ED Provider: Alexander Marin ED Midlevel Provider: Kerri Gonzales Discharge Problem: Hip pain Patient Disposition: Being Evaluated by Hospitalist Condition: Fair Forms Stand Alone Forms: [facility] Prescriptions Prescriptions: No Action Xifaxan 550 mg tablet 550 mg PO BID RF: 0 cholecalciferol (vitamin D3) [Vitamin D3] 2,000 unit capsule 4,000 unit PO QAM RF: 0 pantoprazole [Protonix] 40 mg Tablet,Delayed Release (Dr/Ec) 40 mg PO BID RF: 0 duloxetine [Cymbalta] 60 mg Capsule,Delayed Release(Dr/Ec) 60 mg PO QAM RF: 0 cetirizine [Zyrtec] 10 mg tablet 10 mg PO QAM RF: 0 cyclobenzaprine 10 mg tablet 10 mg PO HS PRN (Reason: Muscle Spasm) RF: 0 amitriptyline 50 mg tablet 50 mg PO HS RF: 0 multivitamin Tablet 1 tab PO QAM RF: 0 cyanocobalamin (vitamin B-12) [Vitamin B-12] 1,000 mcg Tablet 1,000 mcg PO QAM RF: 0 gabapentin 300 mg Capsule 300 mg PO BID Qty: 60 RF: 0 hydromorphone [Dilaudid] 2 mg tablet See Rx Instructions .ROUTE .COMPLEX PRN (Reason: Pain) RF: 0 potassium chloride 10 mEq capsule, extended release 10 meq PO BID RF: 0 torsemide 20 mg tablet 20 mg PO DAILY RF: 0 sucralfate 1 gram tablet 1 g PO BID PRN (Reason: Stomach Upset) RF: 0 magnesium oxide 400 mg magnesium Capsule 400 mg PO DAILY RF: 0 ferrous sulfate 220 mg (44 mg iron)/5 mL elixir 220 mg PO DAILY RF: 0 levothyroxine 75 mcg Tablet 75 mcg PO DAILY RF: 0 lactulose 10 gram/15 mL solution 45 ml PO DAILY PRN (Reason: Other) RF: 0 metoprolol tartrate 25 mg tablet 25 mg PO BID Qty: 0 RF: 0 Referrals Referrals: Naresh Bro MD [Primary Care Provider] -
[2020-12-10 22:57] LABS: Basophils # (auto) 0.05 K/uL (0-0.2); Basophils % (auto) 1.4 %; Eosinophils # (auto) 0.06 K/uL (0-0.5); Eosinophils % (auto) 1.7 %; Hemoglobin 10.6 g/dL (12.0-16.0); Lymphocytes # (auto) 1.52 K/uL (1.2-3.4); Lymphocytes % (auto) 43.4 %; Mean Corpuscular Hemoglobin 29.7 pg (25-34); Mean Corpuscular Hgb Conc 33.1 g/dL (32-36); Mean Corpuscular Volume 89.6 fL (80-100); Mean Platelet Volume 9.8 fL (7.4-10.4); Monocytes # (auto) 0.32 K/uL (0.11-0.59); Monocytes % (auto) 9.1 %; Neutrophils # (auto) 1.55 K/uL (1.4-6.5); Neutrophils % (auto) 44.4 %; Platelet Count 282 K/uL (130-400); RDW Coefficient of Variation 16.2 % (11.5-14.5); Red Blood Count 3.57 M/uL (4.2-5.4)
[2020-12-10 23:17] LABS: BUN Creatinine Ratio 14.4 (10-20); Calcium 9.1 mg/dl (8.5-10.1); Creatinine Clr Calc Pharmacy 70.4 ml/min; Est GFR (African American) 80.6; Est GFR (Non-African American) 69.5; Potassium 4.5 mmol/L (3.5-5.1)
[2020-12-11] MEDS ORDERED: HYDROmorphone HCL 2 MG TAB PO STA (01:55)
--- NOTE | 2020-12-11 02:11 | History and Physical Report ---
DATE OF ADMISSION: 12/11/2020 CHIEF COMPLAINT: Right hip pain. HISTORY OF PRESENT ILLNESS: This is a 60-year-old female with past medical history significant for DAVIS and alcoholic liver cirrhosis, hypothyroidism, chronic kidney disease stage III, depression, iron deficiency anemia, who comes with right hip pain and ambulatory dysfunction. As per the record, the patient has history of fall in September 2020 resulting in closed right acetabular fracture, and discharged to rehab and then home, and she was again admitted to the hospital on 11/25/2020 and discharged to [facility] on 11/29/2020. At that time, also seen by orthopedics. 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 She was also having issues with her right knee. Seen by the orthopedics during the last hospital stay.Ortho Recommended continued protected weightbearing of toe touch weightbearing for balance and advised PT/OT and rehabilitation and the patient was discharged to rehab and there was a plan to follow up with [facility]in Dill with possibility of revision of the right TKA and treatment for AVN of the right hip. The patient says she has an appointment with [facility] on coming . She was in rehab and got discharged on last Thursday and she says she is mostly wheelchair bound now, can go walk to the bathroom with weightbearing. She says she was out of her house for 2 weeks and she does not have any pain medication at home and it does cause a lot of pain and without pain medication, she could not even walk. She says she is wheelchair bound almost 12 weeks now and she wants help with the pain. That is the reason she came to the ER today. Denies any headaches. No blurred visions, no earache, no runny nose, no sore throat, no cough, no loss of sense of smell or taste, no dysphagia, no nausea, no vomiting, no abdominal pain, no chest pain or shortness of breath. Normal bowel and bladder movements. Resting comfortably and hemodynamically stable. Somewhat tearful and has been requesting for pain medication because she has a lot of pain. ALLERGIES: CEFACLOR, OXYCODONE, AMOXICILLIN, CEFTRIAXONE, METRONIDAZOLE. PAST MEDICAL HISTORY: As mentioned above. PAST SURGICAL HISTORY: Right total knee arthroplasty, incision and drainage of the right knee hematoma, EGDs, left ankle surgery, right shoulder surgery, hemorrhoidectomy, insertion of non-biodegradeble drug delivery implant on the right side, laparoscopic gastric bypass surgery, arthroplasty of right shoulder surgery, cholecystectomy. MEDICATIONS: The patient is on amitriptyline 50 mg p.o. at bedtime, cetirizine 10 mg p.o. a.m., vitamin D 4000 units p.o. a.m., vitamin B12 1000 mcg p.o. a.m., cyclobenzaprine 10 mg p.o. at bedtime p.r.n., Cymbalta 60 mg p.o. daily, ferrous sulfate 220 mg p.o. daily, gabapentin 300 mg p.o. b.i.d., Dilaudid 1 mg b.i.d. and 0.5 mg as needed in the afternoon, lactulose 45 mL p.o. daily p.r.n., levothyroxine 75 mcg p.o. daily, magnesium oxide 400 mg p.o. daily, metoprolol tartrate 25 mg p.o. b.i.d., multivitamin 1 tablet daily, Protonix 40 mg p.o. b.i.d., potassium chloride 10 mEq p.o. b.i.d., sucralfate 1 gram p.o. b.i.d. p.r.n., torsemide 20 mg p.o. daily, Xifaxan 550 mg p.o. b.i.d. FAMILY HISTORY: Significant for sister has breast cancer, cholesterol; mother has dementia, depression, diabetes, hypertension. SOCIAL HISTORY: Lives alone. No smoking. Says quit alcohol in 2014, but says she drank alcohol today because of lot of pain. REVIEW OF SYSTEMS: As per HPI. Rest of the review of systems negative. PHYSICAL EXAMINATION: GENERAL: The patient is of moderate build, not in acute distress. VITAL SIGNS: Temperature 36.6, pulse 92, respiratory rate 18, blood pressure 120/69, oxygen 94% on room air. HEENT: Pupils equal, round, reactive to light. Oral mucosa moist. NECK: No neck masses seen. CARDIOVASCULAR: S1, S2 heard. Regular rate and rhythm. No murmur, no gallop. RESPIRATORY SYSTEM: Normal AP diameter. No accessory muscle use. No wheezing, no crackles. ABDOMEN: Soft, bowel sounds present, nontender. No distention. CENTRAL NERVOUS SYSTEM: Cranial nerves II-XII are grossly intact. EXTREMITIES: No erythema seen, no edema seen. Right leg, painful range of motions. LABORATORY DATA: WBC 3.5, hemoglobin 10.6, hematocrit 32, platelets 282. Sodium 138, potassium 4.5, chloride 108, bicarbonate 19, BUN 13, creatinine 0.9, serum glucose 81, calcium 9.1. ASSESSMENT AND PLAN: This is a 60-year-old female who comes with ongoing right hip pain. 1. Right hip pain: The patient was here in this hospital in September and also in November. She had acute right acetabular fracture in September of last year and MRI done at last admission in November showed subacute fracture noted in the anterior superior wall of the acetabulum and also she has avascular necrosis of the anterior superior hfemaral head. Supposed to follow up with Brandin Dill coming and also for the right knee, possible revision surgery , but the patient says she could not find any pain medication at home whn she came home from rehab. and it is causing a lot of pain. She could not ambulate. She is on wheelchair. Currently will restart home pain medications. Will consult PT/OT. If not controlled will, consult pain management, Will monitor for now. 2. History of alcoholic and liver cirrhosis. Continue her lactulose, torsemide, Xifaxan. Will monitor for any volume overload. 3. History of alcoholism: The patient says she does not drink alcohol, but today she drank because of pain. Will monitor for any withdrawal. 4. Chronic kidney disease stage III: Will follow the labs. 5. Hypothyroidism: Continue Synthroid. 6. Anemia of iron deficiency: Hemoglobin is stable. Continue iron supplement. 7. Depression: Continue duloxetine. 8. History of atrial tachycardia: Continue on Toprol, will monitor. 9. Deep venous thrombosis prophylaxis: Sequential compression devices for now. 10. Disposition: Observation in medical floor. PT and OT. Social service to help with discharge planning. Addendum: Her routine covid test came back positive. She is asymptomatic currently. Will start on Decadron. Doesn't meet criteria for remdesivir MTDD
[2020-12-11] MEDS ORDERED: POLYETHYLENE (MIRALAX) 17 GM PACK PO PRN (03:03)
[2020-12-11] MEDS ORDERED: SUCRALFATE 1 GM TAB PO PRN (03:03)
[2020-12-11] MEDS ORDERED: ONDANSETRON INJ 2 MG/ML 2 ML VIAL IV PRN (03:03)
[2020-12-11] MEDS ORDERED: CYCLOBENZAPRINE HCL 10 MG TAB PO PRN (03:10)
[2020-12-11] MEDS ORDERED: LACTULOSE SYRUP 30 GM/45 ML UDP PO PRN (03:14)
[2020-12-11] MEDS: LEVOTHYROXINE SODIUM 75 MCG TABLET PO SCH (06:00)
--- NOTE | 2020-12-11 07:53 | XRay Report ---
SINGLE VIEW CHEST CLINICAL HISTORY: Covid. FINDINGS: An AP, portable, upright chest radiograph is compared to study dated 11/25/2020. The examina tion is degraded by portable technique and patient rotation. The heart is mildly enlarged noting athe rosclerotic calcification of the thoracic aorta. The pulmonary vasculature is noncongested. Chronic i nterstitial thickening is similar to previous. There is bibasilar scarring/atelectasis. No airspace c onsolidation or large pleural effusion is identified. No pneumothorax is seen. The skeletal structure s are osteopenic. The bony thorax is grossly intact. A right shoulder arthroplasty is in place. A chr onic Hill-Sachs lesion is suggested in the left shoulder. IMPRESSION: Mild cardiomegaly with no acute cardiopulmonary abnormality. ACT 112: Negative or not required by law. Electronically signed by: Oscar Rainey M.D. 12/11/2020 7:52 AM
[2020-12-11] MEDS: ACETAMINOPHEN 500 MG TAB PO PRN ×2 (07:56→15:38)
[2020-12-11 08:40] LABS: Basophils # (auto) 0.02 K/uL (0-0.2); Basophils % (auto) 0.6 %; Eosinophils # (auto) 0.09 K/uL (0-0.5); Eosinophils % (auto) 2.7 %; Hematocrit (blood only) 30.5 % (37-47); Lymphocytes # (auto) 0.68 K/uL (1.2-3.4); Lymphocytes % (auto) 20.1 %; Mean Corpuscular Hemoglobin 29.6 pg (25-34); Mean Corpuscular Hgb Conc 32.8 g/dL (32-36); Mean Corpuscular Volume 90.2 fL (80-100); Mean Platelet Volume 9.6 fL (7.4-10.4); Monocytes # (auto) 0.31 K/uL (0.11-0.59); Monocytes % (auto) 9.1 %; Neutrophils # (auto) 2.29 K/uL (1.4-6.5); Neutrophils % (auto) 67.5 %; Platelet Count 209 K/uL (130-400); RDW Coefficient of Variation 16.6 % (11.5-14.5); RDW Standard Deviation 54.6 fL (36.4-46.3); Red Blood Count 3.38 M/uL (4.2-5.4); White Blood Count 3.39 K/uL (4.8-10.8)
[2020-12-11] MEDS: dexAMETHasone 4 MG TAB PO SCH (08:45)
[2020-12-11] MEDS: FERROUS SULFATE 325 MG TAB PO SCH (08:45)
[2020-12-11] MEDS: HYDROmorphone HCL 2 MG TAB PO SCH ×2 (08:45→21:04)
[2020-12-11] MEDS: rifAXIMin 550 MG TABLET PO SCH ×2 (08:46→21:03)
[2020-12-11] MEDS: MULTIVITAMIN TAB PO SCH (08:46)
[2020-12-11] MEDS: MAGNESIUM OXIDE 400 MG TAB PO SCH (08:46)
[2020-12-11] MEDS: PANTOprazole 40 MG TAB PO SCH ×2 (08:46→21:03)
[2020-12-11] MEDS: CHOLECALCIFEROL 1,000 UNITS 25 MCG TAB PO SCH (08:46)
[2020-12-11] MEDS: METOPROLOL TARTRATE 25 MG TAB PO SCH ×2 (08:46→21:03)
[2020-12-11] MEDS: DULoxetine HCL 60 MG CAP PO SCH (08:46)
[2020-12-11] MEDS: GABAPENTIN 300 MG CAP PO SCH ×2 (08:46→21:03)
[2020-12-11] MEDS: POTASSIUM CHLORIDE 10 MEQ TABCR PO SCH ×2 (08:46→15:39)
[2020-12-11] MEDS: CYANOCOBALAMIN 500 MCG TABLET (VITAMIN B-12) PO SCH (08:46)
[2020-12-11] MEDS: CETIRIZINE HCL 10 MG TABLET PO SCH (08:46)
[2020-12-11] MEDS: TORSEMIDE 20 MG TAB PO SCH (08:46)
[2020-12-11 09:07] LABS: BUN Creatinine Ratio 12.3 (10-20); Calcium 9.3 mg/dl (8.5-10.1); Creatinine Clr Calc Pharmacy 66.9 ml/min; Est GFR (African American) 81.7; Est GFR (Non-African American) 70.5; Magnesium 1.9 mg/dl (1.8-2.4); Potassium 4.9 mmol/L (3.5-5.1)
[2020-12-11 09:33] LABS: Albumin Level 3.1 gm/dl (3.4-5.0); Bilirubin Direct 0.2 mg/dl (0-0.2); Bilirubin,Total 0.3 mg/dl (0.2-1); Total Protein 6.5 gm/dl (6.4-8.2)
--- NOTE | 2020-12-11 12:57 | Communication Note ---
Date of Service: December 11, 2020 The patient was seen and examined in medical floor She is back with increasing pain in the right hip and she has avascular necrosis of the femoral head and she ran out of her pain medications. She has been drinking recently but not excessively according to her. She was diagnosed to have Covid positive without any known contact and/or symptoms. She still complains a lot of pain and she will be given her usual outpatient doses of pain medication. She remains hemodynamically stable. Full progress note will be done from tomorrow. Dr Satish Foley
[2020-12-11] MEDS: HYDROmorphone HCL 2 MG TAB PO PRN (15:30)
[2020-12-11] MEDS: AMITRIPTYLINE HCL 50 MG TAB PO SCH (21:04)
[2020-12-12] MEDS: LEVOTHYROXINE SODIUM 75 MCG TABLET PO SCH (06:18)
[2020-12-12] MEDS: GABAPENTIN 300 MG CAP PO SCH ×2 (08:51→20:30)
[2020-12-12] MEDS: METOPROLOL TARTRATE 25 MG TAB PO SCH ×2 (08:51→20:30)
[2020-12-12] MEDS: HYDROmorphone HCL 2 MG TAB PO SCH ×2 (08:51→20:28)
[2020-12-12] MEDS: PANTOprazole 40 MG TAB PO SCH ×2 (08:51→20:30)
[2020-12-12] MEDS: rifAXIMin 550 MG TABLET PO SCH ×2 (08:51→20:30)
[2020-12-12] MEDS: CHOLECALCIFEROL 1,000 UNITS 25 MCG TAB PO SCH (08:52)
[2020-12-12] MEDS: FERROUS SULFATE 325 MG TAB PO SCH (08:52)
[2020-12-12] MEDS: MULTIVITAMIN TAB PO SCH (08:52)
[2020-12-12] MEDS: TORSEMIDE 20 MG TAB PO SCH (08:52)
[2020-12-12] MEDS: POTASSIUM CHLORIDE 10 MEQ TABCR PO SCH ×2 (08:52→18:10)
[2020-12-12] MEDS: MAGNESIUM OXIDE 400 MG TAB PO SCH (08:52)
[2020-12-12] MEDS: CYANOCOBALAMIN 500 MCG TABLET (VITAMIN B-12) PO SCH (08:52)
[2020-12-12] MEDS: dexAMETHasone 4 MG TAB PO SCH (08:52)
[2020-12-12] MEDS: CETIRIZINE HCL 10 MG TABLET PO SCH (08:52)
[2020-12-12] MEDS: DULoxetine HCL 60 MG CAP PO SCH (08:52)
[2020-12-12] MEDS: ACETAMINOPHEN 500 MG TAB PO PRN (11:10)
--- NOTE | 2020-12-12 14:06 | Hospitalist Progress Note ---
Date of Service December 12, 2020 Assessment & Plan (1) Hip pain: She was hospitalized in September of last year and also in November for the same reason History of fall with right acetabular fracture, avascular necrosis of the femoral head and right knee pain He was recently in [facility] and was discharged home few days back She ran out of her pain medications and started to take a few drinks The pain was unbearable that she was brought to the emergency room She has been feeling much better with the introduction of pain medication Has an appointment with orthopedic surgeon in [place] on 02 January 2021 She may be discharged tomorrow and she will have her pain medications delivered to her home by her primary care physician (2) AVN of femur: As above (3) Closed right acetabular fracture: As above (4) Cirrhosis: Has cirrhosis of the liver secondary to alcohol abuse Strongly advised not to drink anymore and she agreed Does not have any other significant symptoms from cirrhosis (5) History of alcohol abuse: She has a started to drink alcohol recently Strongly advised to quit drinking and she was agreeable (6) CKD (chronic kidney disease) stage 3, GFR 30-59 ml/min: Kidney function has been normalized (7) Depression: Continue current management (8) COVID-19 virus infection: No exposure to known Covid patients Does not have any symptoms of cough, shortness of breath, fever and/or chills Has been receiving intravenous dexamethasone but no other medications for Covid Dexamethasone has been held helping the hip pain I believe DVT prophylaxis SCDs for now CODE STATUS Full Admission and Anticipated Discharge Date Admission Date: December 11, 2020 Subjective 12/12/2020 The patient was seen and examined in medical Covid room She denies any respiratory symptoms and her pain seems to be reasonably controlled She already has an appointment with orthopedic surgeon in [place] on January 02 and she will try to keep it If she remains stable she can be discharged tomorrow Review of Systems Review of Systems: All systems reviewed and are unremarkable except as noted below Musculoskeletal: + joint pain (Right knee is stiff and has pain with movement. Right hip pain with movement) Physical Exam Physical Exam: Lying in bed without any apparent distress Constitutional: average body habitus; not ill appearing Eyes: PERRL, conjunctivae normal, anicteric sclerae ENMT: external ear and nose normal, oropharynx normal Neck: trachea midline, no thyromegaly Respiratory: no respiratory distress Auscultation: lungs clear to auscultation bilaterally Cardiovascular: Rate/Rhythm: regular rate and regular rhythm Heart Sounds: no murmur Extremities: no edema Gastrointestinal (Abdomen): Inspection/Auscultation: normal bowel sounds; abdomen not distended Percussion/Palpation: abdomen soft; abdomen nontender Musculoskeletal: Knee: + deformity (Right knee is swollen and stiff with pain on movement) Right hip pain with movement Neurologic: Alert, awake and oriented x3 Psychiatric: A+Ox3, euthymic affect Lymphatic: no cervical or axillary lymphadenopathy Results & Data Results & Data ([facility]) Vital Signs (Past 12 Hours) Vital Signs Temp Pulse Resp BP Pulse Ox 12/12/20 07:04 37.4 C 88 17 136/96 96 Medications Administered Current Inpatient Medications Acetaminophen (Acetaminophen 500 Mg Tab) 1,000 mg PO Q6H PRN PRN Reason: Pain Stop: 01/10/21 07:44 Last Admin: 12/12/20 11:10 Dose: 1,000 mg Documented by: Amitriptyline HCl (Amitriptyline Hcl 50 Mg Tab) 50 mg PO HS [facility] Stop: 01/10/21 20:59 Last Admin: 12/11/20 21:04 Dose: 50 mg Documented by: Cetirizine HCl (Cetirizine Hcl 10 Mg Tablet) 10 mg PO QAM [facility] Stop: 01/10/21 08:59 Last Admin: 12/12/20 08:52 Dose: 10 mg Documented by: Cyanocobalamin (Cyanocobalamin 500 Mcg Tablet (Vitamin B-12)) 1,000 mcg PO QAM [facility] Stop: 01/10/21 08:59 Last Admin: 12/12/20 08:52 Dose: 1,000 mcg Documented by: Cyclobenzaprine HCl (Cyclobenzaprine Hcl 10 Mg Tab) 10 mg PO HS PRN PRN Reason: Muscle Spasm Stop: 01/10/21 03:09 Dexamethasone (Dexamethasone 4 Mg Tab) 6 mg PO DAILY [facility] Stop: 01/10/21 08:59 Last Admin: 12/12/20 08:52 Dose: 6 mg Documented by: Duloxetine HCl (Duloxetine Hcl 60 Mg Cap) 60 mg PO QAM [facility] Stop: 01/10/21 08:59 Last Admin: 12/12/20 08:52 Dose: 60 mg Documented by: Ferrous Sulfate (Ferrous Sulfate 325 Mg Tab) 325 mg PO DAILY [facility] Stop: 01/10/21 08:59 Last Admin: 12/12/20 08:52 Dose: 325 mg Documented by: Gabapentin (Gabapentin 300 Mg Cap) 300 mg PO BID [facility] Stop: 01/10/21 08:59 Last Admin: 12/12/20 08:51 Dose: 300 mg Documented by: Hydromorphone HCl (Hydromorphone Hcl 2 Mg Tab) 2 mg PO BID [facility] Stop: 12/25/20 08:59 Last Admin: 12/12/20 08:51 Dose: 2 mg Documented by: Hydromorphone HCl (Hydromorphone Hcl 2 Mg Tab) 1 mg PO DAILY@1200 PRN PRN Reason: Pain Stop: 12/25/20 03:11 Last Admin: 12/11/20 15:30 Dose: 1 mg Documented by: Lactulose (Lactulose Syrup 30 Gm/45 Ml Udp) 30 gm PO DAILY PRN PRN Reason: Other Stop: 01/10/21 03:13 Levothyroxine Sodium (Levothyroxine Sodium 75 Mcg Tablet) 75 mcg PO DAILYBB [facility] Stop: 01/10/21 06:29 Last Admin: 12/12/20 06:18 Dose: 75 mcg Documented by: Magnesium Oxide (Magnesium Oxide 400 Mg Tab) 400 mg PO DAILY [facility] Stop: 01/10/21 08:59 Last Admin: 12/12/20 08:52 Dose: 400 mg Documented by: Metoprolol Tartrate (Metoprolol Tartrate 25 Mg Tab) 25 mg PO BID [facility] Stop: 01/10/21 08:59 Last Admin: 12/12/20 08:51 Dose: 25 mg Documented by: Multivitamins (Multivitamin Tab) 1 tab PO QAM [facility] Stop: 01/10/21 08:59 Last Admin: 12/12/20 08:52 Dose: 1 tab Documented by: Ondansetron HCl (Ondansetron Inj 2 Mg/Ml 2 Ml Vial) 4 mg IV Q6H PRN PRN Reason: Nausea Stop: 01/10/21 03:02 Pantoprazole Sodium (Pantoprazole 40 Mg Tab) 40 mg PO BID [facility] Stop: 01/10/21 08:59 Last Admin: 12/12/20 08:51 Dose: 40 mg Documented by: Polyethylene Glycol (Polyethylene (Miralax) 17 Gm Pack) 17 gm PO DAILY PRN PRN Reason: Constipation Stop: 01/10/21 03:02 Potassium Chloride (Potassium Chloride 10 Meq Tabcr) 10 meq PO BID17 [facility] Stop: 01/10/21 08:59 Last Admin: 12/12/20 08:52 Dose: 10 meq Documented by: Rifaximin (Rifaximin 550 Mg Tablet) 550 mg PO BID [facility] Stop: 01/10/21 08:59 Last Admin: 12/12/20 08:51 Dose: 550 mg Documented by: Sucralfate (Sucralfate 1 Gm Tab) 1 gm PO BID PRN PRN Reason: Stomach Upset Stop: 01/10/21 03:02 Torsemide (Torsemide 20 Mg Tab) 20 mg PO DAILY [facility] Stop: 01/10/21 08:59 Last Admin: 12/12/20 08:52 Dose: 20 mg Documented by: Vitamin D (Cholecalciferol 1,000 Units 25 Mcg Tab) 4,000 units PO QAM [facility] Stop: 01/10/21 08:59 Last Admin: 12/12/20 08:52 Dose: 4,000 units Documented by: (1) Cirrhosis Ascites presence: with ascites Hepatic cirrhosis type: unspecified hepatic cirrhosis Qualified Code(s): K74.60 - Unspecified cirrhosis of liver; R18.8 - Other ascites
[2020-12-12] MEDS: HYDROmorphone HCL 2 MG TAB PO PRN (15:40)
[2020-12-12] MEDS: AMITRIPTYLINE HCL 50 MG TAB PO SCH (20:30)
[2020-12-13] MEDS: LEVOTHYROXINE SODIUM 75 MCG TABLET PO SCH (05:39)
[2020-12-13] MEDS: GABAPENTIN 300 MG CAP PO SCH (09:03)
[2020-12-13] MEDS: HYDROmorphone HCL 2 MG TAB PO SCH (09:03)
[2020-12-13] MEDS: dexAMETHasone 4 MG TAB PO SCH (09:03)
[2020-12-13] MEDS: POTASSIUM CHLORIDE 10 MEQ TABCR PO SCH (09:04)
[2020-12-13] MEDS: CETIRIZINE HCL 10 MG TABLET PO SCH (09:04)
[2020-12-13] MEDS: CYANOCOBALAMIN 500 MCG TABLET (VITAMIN B-12) PO SCH (09:04)
[2020-12-13] MEDS: PANTOprazole 40 MG TAB PO SCH (09:05)
[2020-12-13] MEDS: FERROUS SULFATE 325 MG TAB PO SCH (09:05)
[2020-12-13] MEDS: DULoxetine HCL 60 MG CAP PO SCH (09:05)
[2020-12-13] MEDS: MAGNESIUM OXIDE 400 MG TAB PO SCH (09:05)
[2020-12-13] MEDS: rifAXIMin 550 MG TABLET PO SCH (09:05)
[2020-12-13] MEDS: METOPROLOL TARTRATE 25 MG TAB PO SCH (09:05)
[2020-12-13] MEDS: TORSEMIDE 20 MG TAB PO SCH (09:05)
[2020-12-13] MEDS: CHOLECALCIFEROL 1,000 UNITS 25 MCG TAB PO SCH (09:06)
[2020-12-13] MEDS: MULTIVITAMIN TAB PO SCH (09:06)
[2020-12-13] MEDS: HYDROmorphone HCL 2 MG TAB PO PRN (12:29)
[2020-12-13] MEDS: ACETAMINOPHEN 500 MG TAB PO PRN (12:29)
--- NOTE | 2020-12-13 13:37 | Hospitalist Progress Note ---
Date of Service December 13, 2020 Assessment & Plan (1) Hip pain: H/O fall resulting in Right acetabular fracture, H/O avascular necrosis of the femoral head --Hip MRI on 11/26: Healing subacute fracture is again noted involving the anterosuperior wall of the acetabulum. 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 These findings have progressively worsened from the 09/02/2020 exam. There is a considerable amount of bone marrow edema involving the right femoral head, neck and intertrochanteric distribution which may be reactive from the aforementioned changes, however linear signal abnormality within the intertrochanteric distribution raises the possibility of a subtle acute nondisplaced intertrochanteric fracture. Moderate joint effusion with likely reactive edema of the right abductor musculature and proximal quadriceps. These findings are likely reactive with superimposed infectious etiology considered less likely. -Recently discharged from Rehab facility -Pain controlled with pain meds -Has follow up appointment with orthopedic surgeon in [place] on 02 January 2021 -Refused Rehab placement Plan to discharge home with Home Health (2) AVN of femur: As above (3) Closed right acetabular fracture: As above (4) Cirrhosis: H/O Cirrhosis of the liver secondary to alcohol abuse Counseled to quit alcohol use No signs of withdrawal (5) History of alcohol abuse: Counseled to quit (6) CKD (chronic kidney disease) stage 3, GFR 30-59 ml/min: Renal function at baseline Monitor renal function Avoid nephrotoxic agents as able (7) Depression: Continue current management (8) COVID-19 virus infection: No exposure to known Covid patients Saturating well on room air Receiving dexamethasone as could help with hip pain as well DVT Px: SCDs CODE STATUS Full Disposition Patient refused SNF placement Plan to discharge home with Home Health Admission and Anticipated Discharge Date Admission Date: December 11, 2020 Subjective Patient is seen and examined at bedside Right hip pain is controlled Sitting in chair comfortably during my exam Reports cough with minimal expectoration Denies chest pain, shortness of breath, dizziness, nausea, abdominal pain Plan to be discharged home with home health Refused rehab placement. Review of Systems Review of Systems: All systems reviewed & are unremarkable except as noted in HPI & below Physical Exam Physical Exam: Physical Exam: Vitals signs as noted above General Appearance:Moderately built and nourished, sitting in wheelchair, no apparent distress Head: normocephalic, Atraumatic Eyes: normal inspection, EOMI Neck: supple, Trachea midline Respiratory/Chest: Decreased breath sounds, CTA, No accessory muscle use Cardiovascular: S1, S2, No murmur Abdomen/GI:Soft, Non tender, Bowel sounds present Extremities/Musculoskelatal:normal inspection, no edema, R hip pain with movement Neurologic/Psych:AAOX3, grossly no focal neurological deficits Skin: normal color, warm Results & Data Results & Data ([facility]) Vital Signs (Past 12 Hours) Vital Signs Temp Pulse Resp BP Pulse Ox 12/13/20 08:43 36.6 C 91 H 19 131/92 99 (1) Cirrhosis Ascites presence: with ascites Hepatic cirrhosis type: unspecified hepatic cirrhosis Qualified Code(s): K74.60 - Unspecified cirrhosis of liver; R18.8 - Other ascites
--- NOTE | 2020-12-13 13:55 | Discharge Summary ---
Date of Service December 13, 2020 Admission HPI Per Admitting Provider CHIEF COMPLAINT: Right hip pain. HISTORY OF PRESENT ILLNESS: This is a 60-year-old female with past medical history significant for DAVIS and alcoholic liver cirrhosis, hypothyroidism, chronic kidney disease stage III, depression, iron deficiency anemia, who comes with right hip pain and ambulatory dysfunction. As per the record, the patient has history of fall in September 2020 resulting in closed right acetabular fracture, and discharged to rehab and then home, and she was again admitted to the hospital on 11/25/2020 and discharged to [facility] on 11/29/2020. At that time, also seen by orthopedics. 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 She was also having issues with her right knee. Seen by the orthopedics during the last hospital stay.Ortho Recommended continued protected weightbearing of toe touch weightbearing for balance and advised PT/OT and rehabilitation and the patient was discharged to rehab and there was a plan to follow up with Brandin Dill with possibility of revision of the right TKA and treatment for AVN of the right hip. The patient says she has an appointment with [facility] shiv on coming . She was in rehab and got discharged on last Thursday and she says she is mostly wheelchair bound now, can go walk to the bathroom with weightbearing. She says she was out of her house for 2 weeks and she does not have any pain medication at home and it does cause a lot of pain and without pain medication, she could not even walk. She says she is wheelchair bound almost 12 weeks now and she wants help with the pain. That is the reason she came to the ER today. Denies any headaches. No blurred visions, no earache, no runny nose, no sore throat, no cough, no loss of sense of smell or taste, no dysphagia, no nausea, no vomiting, no abdominal pain, no chest pain or shortness of breath. Normal bowel and bladder movements. Resting comfortably and hemodynamically stable. Somewhat tearful and has been requesting for pain medication because she has a lot of pain. Admission Exam Per Admitting Provider PHYSICAL EXAMINATION: GENERAL: The patient is of moderate build, not in acute distress. VITAL SIGNS: Temperature 36.6, pulse 92, respiratory rate 18, blood pressure 120/69, oxygen 94% on room air. HEENT: Pupils equal, round, reactive to light. Oral mucosa moist. NECK: No neck masses seen. CARDIOVASCULAR: S1, S2 heard. Regular rate and rhythm. No murmur, no gallop. RESPIRATORY SYSTEM: Normal AP diameter. No accessory muscle use. No wheezing, no crackles. ABDOMEN: Soft, bowel sounds present, nontender. No distention. CENTRAL NERVOUS SYSTEM: Cranial nerves II-XII are grossly intact. EXTREMITIES: No erythema seen, no edema seen. Right leg, painful range of motions. Principal Diagnosis Right Hip Pain COVID 19 Infection Discharge Data Allergies Allergy/AdvReac Type Severity Reaction Status Date / Time cefaclor Allergy Intermediate Swelling Verified 12/10/20 23:30 oxycodone Allergy Intermediate HIVES Verified 12/10/20 23:30 amoxicillin Allergy Mild Nausea Verified 12/10/20 23:30 ceftriaxone [From Rocephin] Allergy Rash Verified 12/10/20 23:30 metronidazole [From Flagyl] Allergy Rash Verified 12/10/20 23:30 Consultations 12/10/20 22:18 ED Decision to Admit Stat 12/11/20 03:03 Consult Case Management - Discharge Planning Routine Procedures Performed Hip MRI on 11/26: Healing subacute fracture is again noted involving the anterosuperior wall of the acetabulum. 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 These findings have progressively worsened from the 09/02/2020 exam. There is a considerable amount of bone marrow edema involving the right femoral head, neck and intertrochanteric distribution which may be reactive from the aforementioned changes, however linear signal abnormality within the intertrochanteric distribution raises the possibility of a subtle acute nondisplaced intertrochanteric fracture. Moderate joint effusion with likely reactive edema of the right abductor musculature and proximal quadriceps. These findings are likely reactive with superimposed infectious etiology considered less likely. Hospital Course (1) Hip pain: H/O fall resulting in Right acetabular fracture, H/O avascular necrosis of the femoral head --Hip MRI on 11/26: Healing subacute fracture is again noted involving the anterosuperior wall of the acetabulum. 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 These findings have progressively worsened from the 09/02/2020 exam. There is a considerable amount of bone marrow edema involving the right femoral head, neck and intertrochanteric distribution which may be reactive from the aforementioned changes, however linear signal abnormality within the intertrochanteric distrib ution raises the possibility of a subtle acute nondisplaced intertrochanteric fracture. Moderate joint effusion with likely reactive edema of the right abductor musculature and proximal quadriceps. These findings are likely reactive with superimposed infectious etiology considered less likely. -Recently discharged from Rehab facility -Pain controlled with pain meds -Has follow up appointment with orthopedic surgeon in [place] on 02 January 2021 -Refused Rehab placement Plan to discharge home with Home Health (2) AVN of femur: As above (3) Closed right acetabular fracture: As above (4) Cirrhosis: H/O Cirrhosis of the liver secondary to alcohol abuse Counseled to quit alcohol use No signs of withdrawal (5) History of alcohol abuse: Counseled to quit (6) CKD (chronic kidney disease) stage 3, GFR 30-59 ml/min: Renal function at baseline Monitor renal function Avoid nephrotoxic agents as able (7) Depression: Continue current management (8) COVID-19 virus infection: No exposure to known Covid patients Saturating well on room air Receiving dexamethasone as could help with hip pain as well DVT Px: SCDs CODE STATUS Full Disposition Patient refused SNF placement Plan to discharge home with Home Health Total Time Total Time Spent Total Time Spent (In Minutes): 38 minutes Total Time Includes: Examination of the Patient, Discharge Planning, Medication Reconciliation, Communication With Other Providers and Other Discharge Plan Discharge Items Patient Disposition: Home - Home Health Services Reason For Visit: HIP PAIN Discharge Diagnosis: Right Hip Pain COVID 19 Infection Condition on Discharge: Fair Activity: Per Instructions section Exercise/Sports: Gradually increase as tolerated Non-emergency contact: Primary Care Provider and Surgeon Call non-emergency contact if: you have any medication questions, your symptoms worsen, your pain is not controlled, your pain is worsening, your pain is unusual for you, your pain is concerning for you and you have a fever Follow-up/Referrals: Naresh Bro MD [Primary Care Provider] - (Date & Time 12/18/2020 11:20 AM Provider Naresh Bro MD [facility] THIS IS A TELEHEALTH APPOINTMENT. PLEASE FOLLOW THE DIRECTIONS IN YOUR EMAIL YOU WILL RECEIVE. IF YOU HAVE ANY QUESTIONS OR NEED TO CHANGE THE APPOINTMENT STYLE, PLEASE CALL Date & Time 01/02/2021 12:30 PM Provider Jarad Allison MD Department Orthopaedics, [place] ) Diet: Heart Healthy Diet Texture: Easy to Chew Addtl Attending Provider Instructions: Follow-up with your primary care physician on 12/18/2020 11:20 AM Quit Drinking Alcohol as advised. Take dexamethasone --6 mg daily as prescribed until your follow up with your Family physician. Further instructions as per Dr. Bro Seek immediate medical attention if your symptoms reoccur or worsen Home Isolation COVID-19 Instructions The following information about Home Isolation is from the CDC Website: https://www.cdc.gov/coronavirus/2019-ncov/hcp/lujjlngv-ozdopec-ttuikx.html Stay home except to get medical care People who are mildly ill with COVID-19 are able to isolate at home during their illness. You should restrict activities outside your home, except for getting medical care. Do not go to work, school, or public areas. Avoid using public transportation, ride-sharing, or taxis. Separate yourself from other people and animals in your home People: As much as possible, you should stay in a specific room and away from other people in your home. Also, you should use a separate bathroom, if available. Animals: You should restrict contact with pets and other animals while you are sick with COVID-19, just like you would around other people. Although there have not been reports of pets or other animals becoming sick with COVID-19, it is still recommended that people sick with COVID-19 limit contact with animals until more information is known about the virus. When possible, have another member of your household care for your animals while you are sick. If you are sick with COVID-19, avoid contact with your pet, including petting, snuggling, being kissed or licked, and sharing food. If you must care for your pet or be around animals while you are sick, wash your hands before and after you interact with pets and wear a face mask. Call ahead before visiting your doctor If you have a medical appointment, call the healthcare provider and tell them that you have or may have COVID-19. This will help the healthcare providers off ice take steps to keep other people from getting infected or exposed. Wear a face mask You should wear a face mask when you are around other people (e.g., sharing a room or vehicle) or pets and before you enter a healthcare providers office. If you are not able to wear a face mask (for example, because it causes trouble breathing), then people who live with you should not stay in the same room with you, or they should wear a face mask if they enter your room. Cover your coughs and sneezes Cover your mouth and nose with a tissue when you cough or sneeze. Throw used tissues in a lined trash can. Immediately wash your hands with soap and water for at least 20 seconds or, if soap and water are not available, clean your hands with an alcohol-based hand healthcare account manager that contains at least 60% alcohol. Clean your hands often Wash your hands often with soap and water for at least 20 seconds, especially after blowing your nose, coughing, or sneezing; going to the bathroom; and before eating or preparing food. If soap and water are not readily available, use an alcohol-based hand healthcare account manager with at least 60% alcohol, covering all surfaces of your hands and rubbing them together until they feel dry. Soap and water are the best option if hands are visibly dirty. Avoid touching your eyes, nose, and mouth with unwashed hands. Avoid sharing personal household items You should not share dishes, drinking glasses, cups, eating utensils, towels, or bedding with other people or pets in your home. After using these items, they should be washed thoroughly with soap and water. Clean all high-touch surfaces everyday High touch surfaces include counters, tabletops, doorknobs, bathroom fixtures, toilets, phones, keyboards, tablets, and bedside tables. Also, clean any surfaces that may have blood, stool, or body fluids on them. Use a household cleaning spray or wipe, according to the label instructions. Labels contain instructions for safe and effective use of the cleaning product including precautions you should take when applying the product, such as wearing gloves and making sure you have good ventilation during use of the product. Monitor your symptoms Seek prompt medical attention if your illness is worsening (e.g., difficulty breathing).Beforeseeking care, call your healthcare provider and tell them that you have, or are being evaluated for, COVID-19. Put on a face mask before you enter the facility. These steps will help the healthcare providers office to keep other people in the office or waiting room from getting infected or exposed. Ask your healthcare provider to call the local or state health department. Persons who are placed under active monitoring or facilitated self- monitoring should follow instructions provided by their local health department or occupational health professionals, as appropriate. When working with your local health department check their available hours. If you have a medical emergency and need to call 911, notify the dispatch personnel that you have, or are being evaluated for COVID-19. If possible, put on a face mask before emergency medical services arrive. Discontinuing home isolation Patients with confirmed COVID-19 should remain under home isolation precautions until the risk of secondary transmission to others is thought to be low. The decision to discontinue home isolation precautions should be made on a nebu-sq-rdlu basis, in consultation with healthcare providers and state and [facility] health departments. Coronavirus disease 2019 (COVID-19) is a virus that causes a respiratory illness. It is caused by a coronavirus called 2019 novel coronavirus (2019- nCoV). There are many types of coronavirus. Coronaviruses are a very common cause of bronchitis. They may sometimes cause lung infection(pneumonia). Symptoms can range from mild to severe respiratory illness. These viruses are also foundin some animals. COVID-19 was first found in people in [facility], in late 2019. In 2020, several cases of COVID-19 have been confirmed in the [place] Public health officials are working to find the source. How the virus spreads is not yet fully known. It may be spread through droplets of fluid that a person coughs or sneezes into the air. It may be spread if you touch a surface with virus on it, such as a handle or object, and then touch your mouth. What are the symptoms of COVID-19? Some people have no symptoms or mild symptoms. Symptoms may appear 2 to 14 days after contact with the virus. Symptoms can include: Fever Coughing Trouble breathing What are possible complications from COVID-19? In many cases, this virus can cause infection (pneumonia) in both lungs. In some cases, this can cause . How is COVID-19 diagnosed? Your healthcare provider will ask about your symptoms. He or she will also ask about your recent travel and contact with sick people. Testing for the virus is only done through the CDC. If yourhealthcare provider thinks you may have COVID- 19, he or she will work with your local health department and the CDC on testing. Follow all instructions from your healthcare provider. COVID-19 is diagnosed by: Nasal and throat swab. A cotton-tipped swab is wiped inside your nose or throat. This is done to check for viruses in your nasal mucus. Sputum culture. A small sample of mucus coughed from your lungs (sputum) is collected if you have a cough. It is checked for the virus. How is COVID-19 treated? There is currently no medicine to treat the virus. Treatment is done to help your body while it fights the virus. This is known as supportive care. Supportive care may include: Pain medicine. These include acetaminophen and ibuprofen. They are used to help ease pain and reduce fever. Bed rest. This helps your body fight the illness. For severe illness, you may need to stay in the hospital. Care during severe illness may include: IV (intravenous) fluids.These are given through a vein to help keep your body hydrated. Oxygen. Supplemental oxygen or ventilation with a breathing machine (ventilator) may be given. This is done to keep enough oxygen in your body. Are you at risk for COVID-19? If youve been to a place where people have been sick with this virus, you are at risk for infection. You are at risk if you: Recently traveled to an affected area Had contact with a sick person who recently traveled to this area Had contact with a person who was diagnosed with COVID-19 How can COVID-19 be prevented? There is no vaccine yet. The best prevention is to not have contact with the virus. The CDC advises that people should not travel to areas where there are COVID-19 outbreaks right now for any reason that is not urgent. To help prevent spreading the infection, wash your hands often, or use an alcohol-basedhand healthcare account manager. If you are in an area with COVID-19: Wash your hands often. Or use an alcohol-based hand healthcare account manager often. Only touch your eyes, nose, or mouth with clean hands. Dont have contact with people who are sick. Follow local instructions about being in public. For example, you may be told to not use public transport for a period of time. Stay away from markets that have live or animals. Wash your hands after touching any animals. Don't touch animals that may be sick. Dont share eating or drinking tools with sick people. Dont kiss someone who is sick. Clean surfaces often with disinfectant. If you were in an area with COVID-19 in the last 14 days: Call your healthcare provider. He or she can talk with local health staff to see what action may be needed. Follow all instructions from your provider. Take your temperature every morning and evening for at least 14 days. This is to check for fever. Keep a record of the readings. Keep watch for symptoms of the virus. Tell your provider right away if you have symptoms. If you were in an area with COVID-19 and have a fever or other symptoms: Dont panic. Keep in mind that other illnesses can cause similar symptoms. Stay away from work, school, and public places. Limit physical contact with family members. Don't kiss anyone or share eating or drinking utensils. Clean surfaces you touch with disinfectant. This is to help prevent the virus from spreading. Call your healthcare provider. Explain that you have been exposed to COVID-19 and have symptoms. Do this before going to any hospital. Wait for instructions. Keep in mind that healthcare staff may wear protective equipment such as masks, gowns, gloves, and eye protection. You may be put in a separate room. This is to prevent the possible virus from spreading. Tell the healthcare staff about recent travel. This includes local travel on public transport. Staff may need to find other people you have been in contact with. Follow all instructions the healthcare staff give you. If you have been diagnosed with COVID-19 Follow all instructions from your healthcare provider. Dont leave your home, except to get medical care. Call your healthcare providers office before going. They can prepare and give you instructions. This will help prevent the virus from spreading. Dont go to work, school, or public areas. Dont use public transport or taxis. Stay away from other people in your home. Have them wear face masks around you. Dont share household items or food. Wear a face mask if you can. This includes at home or in a medical facility. Cover your face with a tissue when you cough or sneeze. Throw the tissue away. Wash your hands. Wash your hands often. Caregivers should: Follow all instructions from healthcare staff. Wear a face mask and protective clothing as advised. Wash hands often. Keep track of the sick persons symptoms. Clean surfaces, fabrics, and laundry thoroughly. Keep other people away from the sick person. When to call your healthcare provider Call your healthcare provider: If youve recently traveled and have symptoms If you have been diagnosed with COVID-19 and your symptoms are worse To learn more To find out more about COVID-19, visit the CDC website at www.cdc .gov/coronavirus/2019-ncov/index.html. [employer] [address] [place] [address], [place] [id number]. All rights reserved. This information is not intended as a substitute for professional medical care. Always follow your healthcare professional's instructions. This information has been adapted from [employer] Pending Studies at Discharge: No Stand-Alone Forms: My [facility], Smoking Cessation Medications and DC Order Prescriptions: New dexamethasone 4 mg Tablet 6 mg PO DAILY 7 Days Qty: 11 RF: 0 Continued Xifaxan 550 mg tablet 550 mg PO BID RF: 0 cholecalciferol (vitamin D3) [Vitamin D3] 2,000 unit capsule 4,000 unit PO QAM RF: 0 pantoprazole [Protonix] 40 mg Tablet,Delayed Release (Dr/Ec) 40 mg PO BID RF: 0 duloxetine [Cymbalta] 60 mg Capsule,Delayed Release(Dr/Ec) 60 mg PO QAM RF: 0 cetirizine [Zyrtec] 10 mg tablet 10 mg PO QAM RF: 0 cyclobenzaprine 10 mg tablet 10 mg PO HS PRN (Reason: Muscle Spasm) RF: 0 amitriptyline 50 mg tablet 50 mg PO HS RF: 0 multivitamin Tablet 1 tab PO QAM RF: 0 cyanocobalamin (vitamin B-12) [Vitamin B-12] 1,000 mcg Tablet 1,000 mcg PO QAM RF: 0 gabapentin 300 mg Capsule 300 mg PO BID Qty: 60 RF: 0 potassium chloride 10 mEq capsule, extended release 10 meq PO BID RF: 0 torsemide 20 mg tablet 20 mg PO DAILY RF: 0 sucralfate 1 gram tablet 1 g PO BID PRN (Reason: Stomach Upset) RF: 0 magnesium oxide 400 mg magnesium Capsule 400 mg PO DAILY RF: 0 ferrous sulfate 220 mg (44 mg iron)/5 mL elixir 220 mg PO DAILY RF: 0 levothyroxine 75 mcg Tablet 75 mcg PO DAILY RF: 0 lactulose 10 gram/15 mL solution 45 ml PO DAILY PRN (Reason: Other) RF: 0 metoprolol tartrate 25 mg tablet 25 mg PO BID Qty: 0 RF: 0 Changed hydromorphone [Dilaudid] 2 mg tablet 2 mg PO UD PRN (Reason: Pain) Qty: 4 RF: 0 Discharge Orders: Discharge Order (Routine); Ordered 12/13/20 Ordered By: Nitin Wolf/Other Patient Handouts: 2019-nCoV, Hydromorphone tablets, Dexamethasone tablets Admission Data Admit Date/Time: 12/11/20 00:07 Attending Provider: Nitin Hargrove Admit Provider: Tony Matute Primary Care Provider: Naresh Bro Other Providers: Tony Matute ; [facility],Home Healthcare Other Interventions: Discharge Summary Assessment (RN) Last Done: 12/13/20 14:26
== END 2020-12-13 15:16 | disposition home health service (06) ==
LOC: ED 21:35 → 3E 21:35 → SUATTDRO 12-11 00:07 → 3E 12-11 02:19

== ENCOUNTER 2021-03-11 20:43 | Inpatient (IN) ==
--- NOTE | 2021-03-11 21:35 | Emergency Department Note ---
History of Present Illness General Chief complaint: Hip Pain Stated complaint: FALL, R HIP PAIN Time Seen by Provider: 03/11/21 21:17 Source: patient Mode of arrival: EMS Limitations: no limitations History of Present Illness Maximum Pain Intensity: 10 This patient comes in complaint of right hip pain. She has some chronic right hip pain secondary to avascular necrosis and is followed by an orthopedist in [place]. She does drink alcohol heavily and says she drinks it to prevent infection. She said that she had a a slushy and wine today and was not drinking much. She tripped over her walker and landed on her right side her only complaint is right hip pain she denies that she hit her head or denies any loss of consciousness. Denies chest pain or shortness of breath or chest trauma. Denies abdominal pain. She was not on the floor for any prolonged period of time. No numbness or weakness in the legs except for chronic neuropathy. She is on no blood thinner as she had trouble with bleeding into her left thigh in the past Home Medications Medication Instructions Recorded Confirmed Type cyanocobalamin (vitamin B-12) 1,000 mcg PO QAM 08/22/18 03/11/21 History [Vitamin B-12] multivitamin 1 tab PO QAM 08/22/18 03/11/21 History Xifaxan 550 mg PO BID 10/03/18 03/11/21 History cholecalciferol (vitamin D3) 4,000 unit PO QAM 10/03/18 03/11/21 History [Vitamin D3] duloxetine [Cymbalta] 60 mg PO QAM 07/19/19 03/11/21 History pantoprazole [Protonix] 40 mg PO BID 07/19/19 03/11/21 History cetirizine [Zyrtec] 10 mg PO QAM 04/05/20 03/11/21 History gabapentin 300 mg PO BID #60 cap 06/23/20 03/11/21 Rx amitriptyline 50 mg PO HS PRN 09/02/20 03/11/21 History cyclobenzaprine 10 mg PO HS PRN 09/02/20 03/11/21 History ferrous sulfate 220 mg PO DAILY 11/25/20 03/11/21 History lactulose 45 ml PO DAILY PRN 11/25/20 03/11/21 History levothyroxine 75 mcg PO DAILY 11/25/20 03/11/21 History magnesium oxide 400 mg PO DAILY 11/25/20 03/11/21 History potassium chloride 10 meq PO BID 11/25/20 03/11/21 History sucralfate 1 g PO BID PRN 11/25/20 03/11/21 History torsemide 20 mg PO DAILY 11/25/20 03/11/21 History metoprolol tartrate 25 mg PO BID #0 tab 11/28/20 03/11/21 Rx hydromorphone [Dilaudid] 2 mg PO UD PRN #4 tab 12/13/20 03/11/21 Rx ondansetron HCl [Zofran] 4 mg PO Q6H PRN #6 tab 01/31/21 03/11/21 Rx Allergies Allergy/AdvReac Type Severity Reaction Status Date / Time cefaclor Allergy Intermediate Swelling Verified 03/11/21 22:25 oxycodone Allergy Intermediate HIVES Verified 03/11/21 22:25 amoxicillin Allergy Mild Nausea Verified 03/11/21 22:25 ceftriaxone [From Rocephin] Allergy Rash Verified 03/11/21 22:25 metronidazole [From Flagyl] Allergy Rash Verified 03/11/21 22:25 Past Med/Surg History Medical History REJI (acute kidney injury) Anemia, iron deficiency Ascites Cirrhosis CKD (chronic kidney disease) stage 3, GFR 30-59 ml/min Depression Gastric peptic ulcer Hypothyroidism Neuropathy of both feet On anticoagulant therapy warfarin daily Surgical History History of arthrodesis left leg History of arthroplasty of right shoulder unable to lift arm after sx History of arthroscopy of left knee x2 History of arthroscopy of right knee x7 History of cardiac cath 2011--no stents History of cholecystectomy History of colonoscopy History of esophagogastroduodenoscopy (EGD) History of gastric bypass History of open reduction and internal fixation (ORIF) procedure left tib/fib fx--hardware in place History of surgery on extremity 2017--right leg hardware in place per pt a "fusion of her leg" History of tooth extraction all teeth removed History of total right knee replacement (TKR) 2006 Family History Sister Breast cancer Mother Hypertension Diabetes Other No family history of adverse response to anesthesia Social History Smoking Status: Never smoker Second Hand Exposure: No; Hx Alcohol Use: Yes Alcohol type: wine and hard liquor Alcohol Intake Frequency: 4 or More x per/Week Alcohol Intake Frequency Comment: Pt states now drinks approx twice a week Hx Substance Use: No Preferred Language: Macedonian Communication Ability: Effective Emergency Department Required: No Beliefs That Will Affect Care: None Current Living Situation: Alone Other Information That Helps Us Care for You: No Feels Safe at Home: Yes Safety Concerns: Feels Safe At This Time Assistive Devices: Walker Review of Systems A total of 10 systems reviewed and were otherwise negative Physical Exam Vital Signs Vital Signs - 24 hr 03/11/21 20:51 03/11/21 22:02 03/11/21 22:06 Temperature 36.2 C L Temperature Source Oral Pulse Rate 102 H 108 H 109 H Pulse Rate [Right Finger] Pulse Rate from SpO2 Sensor 106 H 107 H Pulse Rhythm Regular Respiratory Rate 18 14 14 Blood Pressure 130/94 144/90 H Blood Pressure [Left Arm] Blood Pressure Mean 106 108 Blood Pressure Mean [Left Arm] Pulse Oximetry 99 95 90 Oxygen Delivery Method Room Air Sepsis Recent Fever Within 48 Hours No Sepsis New/Unexplained Change in Mental Status No Sepsis Action Taken by Nursing No Action Required 03/11/21 22:10 03/11/21 22:15 03/11/21 22:19 Temperature Temperature Source Pulse Rate 106 H 104 H Pulse Rate [Right Finger] Pulse Rate from SpO2 Sensor 106 H 105 H Pulse Rhythm Regular Respiratory Rate 20 22 Blood Pressure 129/81 Blood Pressure [Left Arm] Blood Pressure Mean 97 Blood Pressure Mean [Left Arm] Pulse Oximetry 96 99 Oxygen Delivery Method Room Air Sepsis Recent Fever Within 48 Hours Sepsis New/Unexplained Change in Mental Status Sepsis Action Taken by Nursing 03/11/21 22:20 03/11/21 22:30 03/11/21 22:31 Temperature Temperature Source Pulse Rate 112 H 104 H 106 H Pulse Rate [Right Finger] Pulse Rate from SpO2 Sensor 112 H 105 H 106 H Pulse Rhythm Respiratory Rate 19 22 25 H Blood Pressure 121/79 Blood Pressure [Left Arm] Blood Pressure Mean 93 Blood Pressure Mean [Left Arm] Pulse Oximetry 92 99 98 Oxygen Delivery Method Sepsis Recent Fever Within 48 Hours Sepsis New/Unexplained Change in Mental Status Sepsis Action Taken by Nursing 03/11/21 22:40 03/11/21 22:50 03/11/21 23:00 Temperature Temperature Source Pulse Rate Pulse Rate [Right Finger] Pulse Rate from SpO2 Sensor 112 H 108 H 110 H Pulse Rhythm Respiratory Rate Blood Pressure Blood Pressure [Left Arm] Blood Pressure Mean Blood Pressure Mean [Left Arm] Pulse Oximetry 94 100 100 Oxygen Delivery Method Sepsis Recent Fever Within 48 Hours Sepsis New/Unexplained Change in Mental Status Sepsis Action Taken by Nursing 03/11/21 23:28 03/11/21 23:30 03/11/21 23:31 Temperature Temperature Source Pulse Rate Pulse Rate [Right Finger] Pulse Rate from SpO2 Sensor 67 114 H Pulse Rhythm Respiratory Rate Blood Pressure 105/88 Blood Pressure [Left Arm] Blood Pressure Mean 93 Blood Pressure Mean [Left Arm] Pulse Oximetry 87 L 79 L 93 Oxygen Delivery Method Sepsis Recent Fever Within 48 Hours Sepsis New/Unexplained Change in Mental Status Sepsis Action Taken by Nursing 03/11/21 23:40 03/11/21 23:45 03/11/21 23:50 Temperature Temperature Source Pulse Rate Pulse Rate [Right Finger] Pulse Rate from SpO2 Sensor 117 H 127 H 116 H Pulse Rhythm Respiratory Rate Blood Pressure 134/97 Blood Pressure [Left Arm] Blood Pressure Mean 109 Blood Pressure Mean [Left Arm] Pulse Oximetry 83 L 87 L 100 Oxygen Delivery Method Sepsis Recent Fever Within 48 Hours Sepsis New/Unexplained Change in Mental Status Sepsis Action Taken by Nursing 03/12/21 00:00 03/12/21 00:10 03/12/21 00:20 Temperature Temperature Source Pulse Rate Pulse Rate [Right Finger] Pulse Rate from SpO2 Sensor 148 H 146 H 143 H Pulse Rhythm Respiratory Rate Blood Pressure Blood Pressure [Left Arm] Blood Pressure Mean Blood Pressure Mean [Left Arm] Pulse Oximetry 96 78 L 98 Oxygen Delivery Method Sepsis Recent Fever Within 48 Hours Sepsis New/Unexplained Change in Mental Status Sepsis Action Taken by Nursing 03/12/21 00:30 03/12/21 00:37 03/12/21 00:40 Temperature Temperature Source Pulse Rate Pulse Rate [Right Finger] 120 H Pulse Rate from SpO2 Sensor 142 H 144 H Pulse Rhythm Respiratory Rate 18 Blood Pressure Blood Pressure [Left Arm] 148/77 H Blood Pressure Mean Blood Pressure Mean [Left Arm] 100 Pulse Oximetry 100 98 Oxygen Delivery Method Sepsis Recent Fever Within 48 Hours Sepsis New/Unexplained Change in Mental Status Sepsis Action Taken by Nursing 03/12/21 00:50 03/12/21 01:00 03/12/21 01:10 Temperature Temperature Source Pulse Rate 169 H Pulse Rate [Right Finger] Pulse Rate from SpO2 Sensor 167 H 161 H 170 H Pulse Rhythm Respiratory Rate 18 Blood Pressure Blood Pressure [Left Arm] Blood Pressure Mean Blood Pressure Mean [Left Arm] Pulse Oximetry 91 92 100 Oxygen Delivery Method Sepsis Recent Fever Within 48 Hours Sepsis New/Unexplained Change in Mental Status Sepsis Action Taken by Nursing 03/12/21 01:12 Temperature Temperature Source Pulse Rate 153 H Pulse Rate [Right Finger] Pulse Rate from SpO2 Sensor 153 H Pulse Rhythm Respiratory Rate 22 Blood Pressure 139/92 Blood Pressure [Left Arm] Blood Pressure Mean 107 Blood Pressure Mean [Left Arm] Pulse Oximetry 99 Oxygen Delivery Method Sepsis Recent Fever Within 48 Hours Sepsis New/Unexplained Change in Mental Status Sepsis Action Taken by Nursing General: Well developed well nourished older female who appears mildly intoxicated but appears in no acute distress, breathing comfortably on room air. Normal speech, slightly HEENT: Normal cephalic atraumatic. Pupils are equal round and reactive to light. Extraocular movements are intact. Oropharynx is pink with moist mucous membranes. No swelling of the mouth lips or tongue. Neck: Supple with a midline trachea. No meningeal signs or stiffness, no JVD or bruits. No Stridor. Chest: Clear to auscultation bilaterally. No wheezes or rhonchi. No increased work of breathing. Heart: Regular rate and rhythm without murmurs or gallops. Abdomen: Soft nontender, nondistended without rebound guarding or rigidity. Extremities: No cyanosis clubbing or edema. No calf tenderness or assymetry. No definite shortening or deformity the right lower extremity. She has normal pulses and motor. She has some mild pain when I move it. Spine/Back. Non tender to palpation. No CVA tenderness Skin: Good turgor without rashes. Neurologic exam: Cranial nerves two through 12 are intact. Motor and sensation are intact and symmetrical throughout. Course Administered Medications Acetaminophen (Acetaminophen 325 Mg Tab) 325 mg PO Q6H PRN PRN Reason: Mild Pain Stop: 04/11/21 03:38 Last Admin: 03/12/21 22:46 Dose: 325 mg Documented by: [id number] Cetirizine HCl (Cetirizine Hcl 10 Mg Tablet) 10 mg PO [facility] Stop: 04/11/21 08:59 Last Admin: 03/13/21 08:32 Dose: 10 mg Documented by: [id number] Admin: 03/12/21 08:14 Dose: 10 mg Documented by: [id number] Duloxetine HCl (Duloxetine Hcl 60 Mg Cap) 60 mg PO [facility] Stop: 04/11/21 08:59 Last Admin: 03/13/21 08:32 Dose: 60 mg Documented by: [id number] Admin: 03/12/21 08:14 Dose: 60 mg Documented by: [id number] Enoxaparin Sodium (Enoxaparin Inj 40 Mg/0.4 Ml Syr) 40 mg SQ [facility] Stop: 04/11/21 08:59 Last Admin: 03/13/21 08:34 Dose: 40 mg Documented by: [id number] Admin: 03/12/21 08:14 Dose: 40 mg Documented by: [id number] Folic Acid (Folic Acid 1 Mg Tab) 1 mg PO [facility] Stop: 04/12/21 08:59 Last Admin: 03/13/21 08:31 Dose: 1 mg Documented by: [id number] Gabapentin (Gabapentin 300 Mg Cap) 300 mg PO BID [facility] Stop: 04/11/21 08:59 Last Admin: 03/13/21 08:34 Dose: 300 mg Documented by: [id number] Admin: 03/12/21 21:21 Dose: 300 mg Documented by: [id number] Admin: 03/12/21 08:14 Dose: 300 mg Documented by: [id number] Hydromorphone HCl (Hydromorphone Hcl 2 Mg Tab) 2 mg PO QID PRN PRN Reason: Pain Stop: 03/26/21 03:38 Last Admin: 03/13/21 06:19 Dose: 2 mg Documented by: [id number] Admin: 03/12/21 22:45 Dose: 2 mg Documented by: [id number] Admin: 03/12/21 15:24 Dose: 2 mg Documented by: [id number] Admin: 03/12/21 08:24 Dose: 2 mg Documented by: [id number] Lorazepam (Ativan) 1 mg in 2 mls @ 2 mls/min IV UD PRN; Protocol PRN Reason: EtOH Withdrawl AWSS Score 6,7 Stop: 04/11/21 03:38 Last Admin: 03/12/21 20:03 Dose: 2 mls/min Documented by: [id number] Lactulose (Lactulose Syrup 30 Gm/45 Ml Udp) 30 gm PO BID [facility] Stop: 04/11/21 15:14 Last Admin: 03/13/21 08:33 Dose: 30 gm Documented by: [id number] Admin: 03/12/21 21:21 Dose: 30 gm Documented by: [id number] Admin: 03/12/21 18:28 Dose: 30 gm Documented by: [id number] Levothyroxine Sodium (Levothyroxine Sodium 75 Mcg Tablet) 75 mcg PO DAILYBB [facility] Stop: 04/11/21 06:29 Last Admin: 03/13/21 06:16 Dose: 75 mcg Documented by: [id number] Admin: 03/12/21 05:00 Dose: Not Given Documented by: [id number] Lidocaine (Lidocaine 5% 1 Patch) 2 patch TD PM [facility] Stop: 04/11/21 20:59 Last Admin: 03/12/21 21:25 Dose: 2 patch Documented by: [id number] Magnesium Oxide (Magnesium Oxide 400 Mg Tab) 400 mg PO DAILY [facility] Stop: 04/12/21 08:59 Last Admin: 03/13/21 08:31 Dose: 400 mg Documented by: [id number] Metoprolol Tartrate (Metoprolol Tartrate 25 Mg Tab) 25 mg PO BID [facility] Stop: 04/11/21 03:38 Last Admin: 03/13/21 08:32 Dose: 25 mg Documented by: [id number] Admin: 03/12/21 21:21 Dose: 25 mg Documented by: [id number] Admin: 03/12/21 08:20 Dose: 25 mg Documented by: [id number] Admin: 03/12/21 04:54 Dose: Not Given Documented by: [id number] Miscellaneous (Remove Lidoderm Patch) 2 ea N/A DAILY@0900 [facility] Stop: 04/11/21 20:58 Last Admin: 03/13/21 08:35 Dose: 2 ea Documented by: [id number] Admin: 03/12/21 21:21 Dose: Not Given Documented by: [id number] Multivitamins (Multivitamin Tab) 1 tab PO QAM [facility] Stop: 04/11/21 08:59 Last Admin: 03/13/21 08:32 Dose: 1 tab Documented by: [id number] Admin: 03/12/21 08:14 Dose: 1 tab Documented by: [id number] Pantoprazole Sodium (Pantoprazole 40 Mg Tab) 40 mg PO BID [facility] Stop: 04/11/21 08:59 Last Admin: 03/13/21 08:32 Dose: 40 mg Documented by: [id number] Admin: 03/12/21 21:21 Dose: 40 mg Documented by: [id number] Admin: 03/12/21 08:13 Dose: 40 mg Documented by: [id number] Rifaximin (Rifaximin 550 Mg Tablet) 550 mg PO BID [facility] Stop: 04/11/21 03:38 Last Admin: 03/13/21 08:31 Dose: 550 mg Documented by: [id number] Admin: 03/12/21 21:20 Dose: 550 mg Documented by: [id number] Admin: 03/12/21 08:13 Dose: 550 mg Documented by: [id number] Admin: 03/12/21 04:54 Dose: Not Given Documented by: [id number] Sucralfate (Sucralfate 1 Gm Tab) 1 gm PO BID PRN PRN Reason: Stomach Upset Stop: 04/11/21 03:38 Last Admin: 03/12/21 08:12 Dose: 1 gm Documented by: [id number] Thiamine HCl (Thiamine Hcl 100 Mg Tab) 100 mg PO QAM [facility] Stop: 04/12/21 08:59 Last Admin: 03/13/21 08:31 Dose: 100 mg Documented by: [id number] Discontinued Medications Gabapentin (Gabapentin 600 Mg Tab) 1,200 mg PO NOW STA Stop: 03/12/21 01:32 Last Admin: 03/12/21 04:53 Dose: Not Given Documented by: [id number] Lorazepam (Ativan) 2 mg in 4 mls @ 4 mls/min IV NOW STA Stop: 03/11/21 23:17 Last Admin: 03/11/21 23:24 Dose: 4 mls/min Documented by: [id number] Lorazepam (Ativan) 2 mg in 4 mls @ 4 mls/min IV NOW STA Stop: 03/12/21 01:00 Last Admin: 03/12/21 01:12 Dose: 4 mls/min Documented by: [id number] Multivitamins 10 ml/ Thiamine HCl 100 mg/ Folic Acid 1 mg/Sodium Chloride 1,011.2 mls @ 1,011.2 mls/hr IV .Q1H ONE Stop: 03/12/21 01:58 Last Infusion: 03/12/21 02:43 Dose: 1,011.2 mls/hr Documented by: [id number] Admin: 03/12/21 01:39 Dose: 1,011.2 mls/hr Documented by: [id number] Lactated Ringer's (Lr) 1,000 mls @ 60 mls/hr IV .[id number] ONE Stop: 03/12/21 20:18 Last Infusion: 03/12/21 10:50 Dose: 0 mls/hr Documented by: [id number] Admin: 03/12/21 05:12 Dose: 60 mls/hr Documented by: [id number] Ioversol (Optiray 300 100ml) 84 ml IV ONCE ONE Stop: 03/11/21 23:20 Last Admin: 03/11/21 23:19 Dose: 84 ml Documented by: [id number] Lorazepam (Lorazepam 2 Mg/4 Ml Vial) Confirm Administered Dose 2 mg .ROUTE .STK- MED ONE Stop: 03/11/21 23:08 Last Admin: 03/11/21 23:24 Dose: Not Given Documented by: [id number] Metoprolol Tartrate (Metoprolol Tartrate 1 Mg/Ml Vial) 5 mg IV NOW STA Stop: 03/12/21 01:32 Last Admin: 03/12/21 01:56 Dose: 5 mg Documented by: [id number] Metoprolol Tartrate (Metoprolol Tartrate 1 Mg/Ml Vial) 2.5 mg IV NOW STA Stop: 03/12/21 04:28 Last Admin: 03/12/21 05:12 Dose: 2.5 mg Documented by: [id number] Medical Decision Making Differential Diagnosis Hip fracture, pelvis fracture, alcohol intoxication, fall, trauma, electrolyte or metabolic abnormality, Covid Medical Records Attestation: I reviewed the patient's medical records. Home Medications Current Medication List: was personally reviewed by me Laboratory Data Attestation: I reviewed the patient's lab results. Result diagrams: 03/12/21 06:05 03/12/21 06:05 Lab Results 03/11/21 03/11/21 03/11/21 Range/Units 21:12 21:12 21:12 WBC 4.15 L (4.8-10.8) K/uL RBC 3.78 L (4.2-5.4) M/uL Hgb 11.9 L (12.0-16.0) g/dL Hct 34.9 L (37-47) % MCV 92.3 (80-100) fL MCH 31.5 (25-34) pg MCHC 34.1 (32-36) g/dL RDW Std Deviation 50.9 H (36.4-46.3) fL RDW Coeff of Jake 15.1 H (11.5-14.5) % Plt Count 289 (130-400) K/uL MPV 9.2 (7.4-10.4) fL Immature Gran % (Auto) 0.2 % Neut % (Auto) 42.5 % Lymph % (Auto) 48.2 % Borden % (Auto) 6.0 % Eos % (Auto) 1.2 % Baso % (Auto) 1.9 % Neut # (Auto) 1.76 (1.4-6.5) K/uL Lymph # (Auto) 2.00 (1.2-3.4) K/uL Borden # (Auto) 0.25 (0.11-0.59) K/uL Eos # (Auto) 0.05 (0-0.5) K/uL Baso # (Auto) 0.08 (0-0.2) K/uL Immature Gran # (Auto) 0.01 (0.00-0.02) K/uL PT INR Sodium 134 L (136-145) mmol/L Potassium 4.4 (3.5-5.1) mmol/L Chloride 103 (98-107) mmol/L Carbon Dioxide 19 L (21-32) mmol/L Anion Gap 12.0 H (3-11) BUN 16 (7-18) mg/dl Creatinine 0.92 (0.6-1.2) mg/dl Est Cr Clr Drug Dosing 65.1 ml/min Est GFR ( Amer) 79.0 Est GFR (Non-Af Amer) 68.2 BUN/Creatinine Ratio 17.8 (10-20) Glucose 98 (70-99) mg/dl Calcium 8.3 L (8.5-10.1) mg/dl Magnesium 2.2 (1.8-2.4) mg/dl Total Bilirubin 0.3 (0.2-1) mg/dl AST 45 H (15-37) U/L ALT 31 (12-78) U/L Alkaline Phosphatase 255 H (45-117) U/L Total Creatine Kinase 69 (26-192) U/L Troponin I < 0.015 (0-0.045) ng/ml Total Protein 6.8 (6.4-8.2) gm/dl Albumin 3.4 (3.4-5.0) gm/dl Globulin 3.4 (2.5-4.0) gm/dl Albumin/Globulin Ratio 1.0 (0.9-2) Lipase 23 L (73-393) U/L TSH 2.770 (0.300-4.500) uIu/ml Specimen Hemolysis Urine Color Urine Appearance (Clear) Urine pH (4.5-7.5) Ur Specific Stuart (1.000-1.030) Urine Protein (Negative) Urine Glucose (UA) (Negative) Urine Ketones (Negative) Urine Blood (Negative) Urine Nitrite (Negative) Urine Bilirubin (Negative) Urine Urobilinogen (Negative) Ur Leukocyte Esterase (Negative) Urine WBC (Auto) (0-5) /hpf Urine RBC (Auto) (0-4) /hpf U Hyaline Cast (Auto) (0-5) /lpf U Epithel Cells (Auto) (0-5) /lpf Urine Bacteria (Auto) (Negative) Ethyl Alcohol mg/dL (0-3) mg/dl COVID-19 Eval Order SARS-CoV-2 (PCR) (Negative) Influenza Type A (PCR) (Neg) Influenza Type B (PCR) (Neg) RSV (RT-PCR) (Neg) 03/11/21 03/11/21 03/11/21 Range/Units 21:12 21:51 22:00 WBC (4.8-10.8) K/uL RBC (4.2-5.4) M/uL Hgb (12.0-16.0) g/dL Hct (37-47) % MCV (80-100) fL MCH (25-34) pg MCHC (32-36) g/dL RDW Std Deviation (36.4-46.3) fL RDW Coeff of Jake (11.5-14.5) % Plt Count (130-400) K/uL MPV (7.4-10.4) fL Immature Gran % (Auto) % Neut % (Auto) % Lymph % (Auto) % Borden % (Auto) % Eos % (Auto) % Baso % (Auto) % Neut # (Auto) (1.4-6.5) K/uL Lymph # (Auto) (1.2-3.4) K/uL Borden # (Auto) (0.11-0.59) K/uL Eos # (Auto) (0-0.5) K/uL Baso # (Auto) (0-0.2) K/uL Immature Gran # (Auto) (0.00-0.02) K/uL PT Cancelled INR Cancelled Sodium (136-145) mmol/L Potassium (3.5-5.1) mmol/L Chloride (98-107) mmol/L Carbon Dioxide (21-32) mmol/L Anion Gap (3-11) BUN (7-18) mg/dl Creatinine (0.6-1.2) mg/dl Est Cr Clr Drug Dosing ml/min Est GFR ( Amer) Est GFR (Non-Af Amer) BUN/Creatinine Ratio (10-20) Glucose (70-99) mg/dl Calcium (8.5-10.1) mg/dl Magnesium (1.8-2.4) mg/dl Total Bilirubin (0.2-1) mg/dl AST (15-37) U/L ALT (12-78) U/L Alkaline Phosphatase (45-117) U/L Total Creatine Kinase (26-192) U/L Troponin I (0-0.045) ng/ml Total Protein (6.4-8.2) gm/dl Albumin (3.4-5.0) gm/dl Globulin (2.5-4.0) gm/dl Albumin/Globulin Ratio (0.9-2) Lipase (73-393) U/L TSH (0.300-4.500) uIu/ml Specimen Hemolysis Urine Color Urine Appearance (Clear) Urine pH (4.5-7.5) Ur Specific Stuart (1.000-1.030) Urine Protein (Negative) Urine Glucose (UA) (Negative) Urine Ketones (Negative) Urine Blood (Negative) Urine Nitrite (Negative) Urine Bilirubin (Negative) Urine Urobilinogen (Negative) Ur Leukocyte Esterase (Negative) Urine WBC (Auto) (0-5) /hpf Urine RBC (Auto) (0-4) /hpf U Hyaline Cast (Auto) (0-5) /lpf U Epithel Cells (Auto) (0-5) /lpf Urine Bacteria (Auto) (Negative) Ethyl Alcohol mg/dL 337.4 H (0-3) mg/dl COVID-19 Eval Order CovFluRsv at [facility] SARS-CoV-2 (PCR) (Negative) Influenza Type A (PCR) (Neg) Influenza Type B (PCR) (Neg) RSV (RT-PCR) (Neg) 03/11/21 03/12/21 Range/Units 22:00 01:15 WBC (4.8-10.8) K/uL RBC (4.2-5.4) M/uL Hgb (12.0-16.0) g/dL Hct (37-47) % MCV (80-100) fL MCH (25-34) pg MCHC (32-36) g/dL RDW Std Deviation (36.4-46.3) fL RDW Coeff of Jake (11.5-14.5) % Plt Count (130-400) K/uL MPV (7.4-10.4) fL Immature Gran % (Auto) % Neut % (Auto) % Lymph % (Auto) % Borden % (Auto) % Eos % (Auto) % Baso % (Auto) % Neut # (Auto) (1.4-6.5) K/uL Lymph # (Auto) (1.2-3.4) K/uL Borden # (Auto) (0.11-0.59) K/uL Eos # (Auto) (0-0.5) K/uL Baso # (Auto) (0-0.2) K/uL Immature Gran # (Auto) (0.00-0.02) K/uL PT INR Sodium (136-145) mmol/L Potassium (3.5-5.1) mmol/L Chloride (98-107) mmol/L Carbon Dioxide (21-32) mmol/L Anion Gap (3-11) BUN (7-18) mg/dl Creatinine (0.6-1.2) mg/dl Est Cr Clr Drug Dosing ml/min Est GFR ( Amer) Est GFR (Non-Af Amer) BUN/Creatinine Ratio (10-20) Glucose (70-99) mg/dl Calcium (8.5-10.1) mg/dl Magnesium (1.8-2.4) mg/dl Total Bilirubin (0.2-1) mg/dl AST (15-37) U/L ALT (12-78) U/L Alkaline Phosphatase (45-117) U/L Total Creatine Kinase (26-192) U/L Troponin I (0-0.045) ng/ml Total Protein (6.4-8.2) gm/dl Albumin (3.4-5.0) gm/dl Globulin (2.5-4.0) gm/dl Albumin/Globulin Ratio (0.9-2) Lipase (73-393) U/L TSH (0.300-4.500) uIu/ml Specimen Hemolysis Urine Color Yellow Urine Appearance Clear (Clear) Urine pH 5.5 (4.5-7.5) Ur Specific Stuart 1.015 (1.000-1.030) Urine Protein Negative (Negative) Urine Glucose (UA) Negative (Negative) Urine Ketones Negative (Negative) Urine Blood Negative (Negative) Urine Nitrite Positive A (Negative) Urine Bilirubin Negative (Negative) Urine Urobilinogen Negative (Negative) Ur Leukocyte Esterase 1+ H (Negative) Urine WBC (Auto) 5-10 H (0-5) /hpf Urine RBC (Auto) 10-30 H (0-4) /hpf U Hyaline Cast (Auto) 0 (0-5) /lpf U Epithel Cells (Auto) >30 H (0-5) /lpf Urine Bacteria (Auto) 2+ H (Negative) Ethyl Alcohol mg/dL (0-3) mg/dl COVID-19 Eval Order SARS-CoV-2 (PCR) NEGATIVE (Negative) Influenza Type A (PCR) Negative (Neg) Influenza Type B (PCR) Negative (Neg) RSV (RT-PCR) Negative (Neg) ECG Data Attestation: I personally reviewed and interpreted this ECG as follows: Indication: + weakness Rate (beats per minute): 105 Rhythm: + sinus tachycardia and + other (Poor baseline) ECG Intervals/blocks: + Normal QRS, + Normal QT and + Normal ND ECG [place]: + Normal ECG ST segments: + Normal ST segments ECG Findings: + Other (Low voltage); no PACs and no PVCs Comparison ECG Date: from (01/31/21) Change: the following changes noted (Rate has decreased on current EKG) MDM Narrative This patient comes in as described above she does have a history of abusing alcohol and was drinking tonight she tripped over her walker she has right hip pain. Her hips been bothering her chronically she has seen an orthopedist recently as she has a avascular necrosis. She is afebrile. She does appear to be moderately intoxicated. IV access was established and multiple blood testing was obtained I did do a CAT scan of the abdomen and pelvis. She was assessed frequently. She was found to be significantly intoxicated with a blood alcohol of 333. She is remarkably awake with this however is argumentative with the nurses and was given Ativan 2 mg IV. She relaxed a little bit with this and I wanted to give her Ativan as well so she does not start withdrawing. The rest of her blood work is unremarkable she is nothing suggest infection. She has no significant electrolyte or metabolic abnormalities. CAT scan was obtained and shows degenerative changes of the right hip but there is nothing changed compare d to previous. The patient is desiring to go home however is nobody to come get her and am concerned she started to withdrawal she is a lot more tachycardic and says she feels shaky she was given additional 2 mg of Ativan IV. I did consult Dr. Panda for admission/observation. She did eat a couple turkey sandwiches and drank some p.o. fluids I also did give her IV banana bag as well. With the second dose of Ativan her heart rate but was now coming down, and had gone up to 160 prior to getting the second dose although she was somewhat agitated with this. With the second she is much more relaxed and its trending downward at 140 and she looks like she is on sinus tach on the monitor. Continuous cardiac monitoring: Due to the patient's fall and alcohol intoxication, and order was placed in the EMR for continuous cardiac monitoring. The patient was noted to be in sinus tachycardia with a rate of 100 upon my interpretation Impression & Plan Alcohol intoxication, Cirrhosis, Acute pain of right hip, Fall, Avascular necrosis of bone of right hip, Alcohol withdrawal Discharge Plan Visit Data Chief Complaint: Hip Pain Stated Complaint: FALL, R HIP PAIN ED Provider: Tung Quintana Discharge Problem: Alcohol intoxication, Cirrhosis, Acute pain of right hip, Fall, Avascular necrosis of bone of right hip, Alcohol withdrawal Patient Disposition: Admitted As Inpatient Discharge Instructions Interventions: ED Discharge Assessment Last Done: 03/12/21 03:00 Discharge Problem: Alcohol intoxication Qualifiers: Complication of substance-induced condition: uncomplicated Qualified Code(s): F10.920 - Alcohol use, unspecified with intoxication, uncomplicated Cirrhosis Qualifiers: Hepatic cirrhosis type: alcoholic cirrhosis Ascites presence: without ascites Qualified Code(s): K70.30 - Alcoholic cirrhosis of liver without ascites Fall Qualifiers: Encounter type: initial encounter Qualified Code(s): W19.XXXA - Unspecified fall, initial encounter Alcohol withdrawal Qualifiers: Complication of substance-induced condition: uncomplicated Qualified Code(s): F10.230 - Alcohol dependence with withdrawal, uncomplicated
[2021-03-11 21:41] LABS: Basophils # (auto) 0.08 K/uL (0-0.2); Basophils % (auto) 1.9 %; Eosinophils # (auto) 0.05 K/uL (0-0.5); Eosinophils % (auto) 1.2 %; Hematocrit (blood only) 34.9 % (37-47); Hemoglobin 11.9 g/dL (12.0-16.0); Immature Granulocytes # (auto) 0.01 K/uL (0.00-0.02); Immature Granulocytes % (auto) 0.2 %; Lymphocytes % (auto) 48.2 %; Mean Corpuscular Hemoglobin 31.5 pg (25-34); Mean Corpuscular Hgb Conc 34.1 g/dL (32-36); Mean Corpuscular Volume 92.3 fL (80-100); Mean Platelet Volume 9.2 fL (7.4-10.4); Monocytes # (auto) 0.25 K/uL (0.11-0.59); Neutrophils # (auto) 1.76 K/uL (1.4-6.5); Neutrophils % (auto) 42.5 %; Platelet Count 289 K/uL (130-400); RDW Coefficient of Variation 15.1 % (11.5-14.5); RDW Standard Deviation 50.9 fL (36.4-46.3); Red Blood Count 3.78 M/uL (4.2-5.4); White Blood Count 4.15 K/uL (4.8-10.8)
[2021-03-11 22:25] LABS: Alanine Aminotransferase 31 U/L (12-78); Albumin Level 3.4 gm/dl (3.4-5.0); Alkaline Phosphatase 255 U/L (45-117); Aspartate Aminotransferase 45 U/L (15-37); BUN Creatinine Ratio 17.8 (10-20); Bilirubin,Total 0.3 mg/dl (0.2-1); Blood Urea Nitrogen 16 mg/dl (7-18); Calcium 8.3 mg/dl (8.5-10.1); Carbon Dioxide 19 mmol/L (21-32); Chloride 103 mmol/L (98-107); Creatinine Clr Calc Pharmacy 65.1 ml/min; Est GFR (Non-African American) 68.2; Globulin 3.4 gm/dl (2.5-4.0); Glucose 98 mg/dl (70-99); Lipase 23 U/L (73-393); Potassium 4.4 mmol/L (3.5-5.1); Sodium 134 mmol/L (136-145); Total Protein 6.8 gm/dl (6.4-8.2); Troponin I < 0.015 ng/ml (0-0.045)
[2021-03-11 22:33] LABS: Magnesium 2.2 mg/dl (1.8-2.4)
[2021-03-11] MEDS ORDERED: LORazepam 2 MG/4 ML VIAL ONE (23:07)
[2021-03-11] MEDS ORDERED: LORazepam 2 MG/4 ML VIAL IV STA (23:16)
[2021-03-11 23:19] LABS: Influenza A virus by PCR Negative (Neg); Influenza B virus by PCR Negative (Neg); RSV by PCR Negative (Neg); SARS CoV2 RNA(COVID-19) InHosp NEGATIVE (Negative)
[2021-03-11] MEDS ORDERED: OPTIRAY 300 100mL IV ONE (23:19)
[2021-03-12] MEDS ORDERED: MULTI-VITAMIN INFUSION 10 ML, THIAMINE HCL 100 MG, FOLIC ACID 1 MG in SODIUM CHLORIDE 0... IV ONE (00:59)
[2021-03-12] MEDS ORDERED: LORazepam 2 MG/4 ML VIAL IV STA (00:59)
[2021-03-12] MEDS ORDERED: METOPROLOL TARTRATE 1 MG/ML VIAL IV STA ×2 (01:31→04:27)
[2021-03-12] MEDS ORDERED: GABAPENTIN 600 MG TAB PO STA (01:31)
[2021-03-12 01:40] LABS: Appearance Urine Clear (Clear); Bacteria Urine Automated 2+ (Negative); Bilirubin Urine Negative (Negative); Blood Urine Negative (Negative); Cast Urine Automated 0 /lpf (0-5); Color Urine Yellow; Epithelial Cell Urine Auto >30 /lpf (0-5); Glucose Urine UA Negative (Negative); Ketones Urine Negative (Negative); Leukocyte Esterase Urine 1+ (Negative); Nitrite Urine Positive (Negative); Protein Urine Negative (Negative); Specific Gravity Urine 1.015 (1.000-1.030); Urobilinogen Urine Negative (Negative); pH Urine 5.5 (4.5-7.5)
--- NOTE | 2021-03-12 02:24 | History & Physical Report ---
Date of Service March 12, 2021 Assessment & Plan (1) SVT (supraventricular tachycardia): Multifactorial : Alcohol withdrawal missed home beta-elizabet dose Right hip pain secondary to fall (hx chronic avascular necrosis) hx PAF as per records, patient off Coumadin secondary to prior hematoma from fall last year as per documentation hypertension, stable chronic pain alcoholic cirrhosis, no overt decompensation chronic anemia, hemoglobin at baseline mood disorder, uncertain status history of gastric bypass hypothyroidism, euthyroid as of today's TSH PCU IV beta-elizabet now Facilitate home beta-elizabet, may need dose titration DT precautions, AWSS Social service RE discharge planning DVT prophylaxis with Lovenox subcu Full code Text document was generated using [employer] voice recognition software. It may contain grammatical or spelling errors. Kindly contact undersigned for clarification of any documentation item in question. History of Present Illness Chief Complaint: Fall, right hip pain as per records Primary Care Provider: Naresh Bro MD History obtained from patient and records. Limited history from patient secondary to disorientation. Medical history significant for PAF, hypertension, chronic pain, alcoholic cirrhosis, chronic anemia (patient hemoglobin 10), mood disorder, history of gastric bypass, hypothyroidism. Last confinement December 2020 for right hip pain attributed to right acetabular fracture/avascular necrosis femoral head secondary to fall. Patient refused rehab placement. Patient discharge home with home health. Patient seen at [facility] last week for right knee pain complaints. Nonoperative intervention for right acetabular fracture as per documentation. Elective right knee surgery contemplated for possible prosthetic joint infection entailing removal of static spacer and placement of articulating spacer contemplated for next month pending preop cardiovascular evaluation as per documentation. Patient sister notified PCP's office of patient drinking heavily again last week. Sister inquiring about treatment services. Last night, patient tripped over her walking landing on her right side. Achy right hip pain. Denies head trauma or LOC. Patient denies chest pain, S OB, headache. Patient brought to the ER for evaluation. Patient subsequently noted to be agitated and disoriented at the ER. IV Ativan given at the ER for alcohol withdrawal. SVT later noted on the monitor, cardiac rate 160s. Patient denies chest pain, S OB. Medical History as above Surgical History : Gastric bypass, knee surgery, shoulder surgery, cholecystectomy Family History : Breast cancer, DM, heart disease Personal/Social history : Non-smoker, alcohol abuse as per records Allergies Allergy/AdvReac Type Severity Reaction Status Date / Time cefaclor Allergy Intermediate Swelling Verified 03/11/21 22:25 oxycodone Allergy Intermediate HIVES Verified 03/11/21 22:25 amoxicillin Allergy Mild Nausea Verified 03/11/21 22:25 ceftriaxone [From Rocephin] Allergy Rash Verified 03/11/21 22:25 metronidazole [From Flagyl] Allergy Rash Verified 03/11/21 22:25 Home Medications Medication Instructions Recorded Confirmed Type cyanocobalamin (vitamin B-12) 1,000 mcg PO QAM 08/22/18 03/11/21 History [Vitamin B-12] multivitamin 1 tab PO QAM 08/22/18 03/11/21 History Xifaxan 550 mg PO BID 10/03/18 03/11/21 History cholecalciferol (vitamin D3) 4,000 unit PO QAM 10/03/18 03/11/21 History [Vitamin D3] duloxetine [Cymbalta] 60 mg PO QAM 07/19/19 03/11/21 History pantoprazole [Protonix] 40 mg PO BID 07/19/19 03/11/21 History cetirizine [Zyrtec] 10 mg PO QAM 04/05/20 03/11/21 History gabapentin 300 mg PO BID #60 cap 06/23/20 03/11/21 Rx amitriptyline 50 mg PO HS PRN 09/02/20 03/11/21 History cyclobenzaprine 10 mg PO HS PRN 09/02/20 03/11/21 History ferrous sulfate 220 mg PO DAILY 11/25/20 03/11/21 History lactulose 45 ml PO DAILY PRN 11/25/20 03/11/21 History levothyroxine 75 mcg PO DAILY 11/25/20 03/11/21 History magnesium oxide 400 mg PO DAILY 11/25/20 03/11/21 History potassium chloride 10 meq PO BID 11/25/20 03/11/21 History sucralfate 1 g PO BID PRN 11/25/20 03/11/21 History torsemide 20 mg PO DAILY 11/25/20 03/11/21 History metoprolol tartrate 25 mg PO BID #0 tab 11/28/20 03/11/21 Rx hydromorphone [Dilaudid] 2 mg PO UD PRN #4 tab 12/13/20 03/11/21 Rx ondansetron HCl [Zofran] 4 mg PO Q6H PRN #6 tab 01/31/21 03/11/21 Rx Past Med/Surg History Medical History REJI (acute kidney injury) Anemia, iron deficiency Ascites Cirrhosis CKD (chronic kidney disease) stage 3, GFR 30-59 ml/min Depression Gastric peptic ulcer Hypothyroidism Neuropathy of both feet On anticoagulant therapy warfarin daily Surgical History History of arthrodesis left leg History of arthroplasty of right shoulder unable to lift arm after sx History of arthroscopy of left knee x2 History of arthroscopy of right knee x7 History of cardiac cath 2011--no stents History of cholecystectomy History of colonoscopy History of esophagogastroduodenoscopy (EGD) History of gastric bypass History of open reduction and internal fixation (ORIF) procedure left tib/fib fx--hardware in place History of surgery on extremity 2016--right leg hardware in place per pt a "fusion of her leg" History of tooth extraction all teeth removed History of total right knee replacement (TKR) 2006 Family History Sister Breast cancer Mother Hypertension Diabetes Other No family history of adverse response to anesthesia Social History Smoking Status: Never smoker Second Hand Exposure: No; Hx Alcohol Use: Yes Alcohol type: wine and hard liquor Alcohol Intake Frequency: 4 or More x per/Week Alcohol Intake Frequency Comment: Pt states now drinks approx twice a week Hx Substance Use: No Preferred Language: Swedish Communication Ability: Effective Buckle Attacher Required: No Beliefs That Will Affect Care: None Current Living Situation: Alone Other Information That Helps Us Care for You: No Feels Safe at Home: Yes Safety Concerns: Feels Safe At This Time Assistive Devices: None Review of Systems Review of Systems: Could not be reliably obtained Physical Exam Physical Exam: GENERAL: Comfortable, disoriented, no respiratory distress SKIN: Pallor, warm HEENT: Pale palpebral conjunctivae, no ptosis, dry buccal mucosa NECK : Supple, no tenderness CHEST : Decreased breath sounds, no tenderness HEART : Tachycardic, no obvious murmurs ABDOMEN: Some distention, nontender EXTREMITIES : Right hip tenderness, no other conspicuous deformities noted NEUROLOGIC : Disoriented, no facial asymmetry, no other gross focality Results & Data Results & Data ([facility]) Vital Signs (Past 12 Hours) Vital Signs Temp Pulse Pulse Resp BP BP Pulse Ox 03/12/21 02:20 101 H 23 97 03/12/21 02:15 102 H 17 122/94 100 03/12/21 02:10 102 H 18 98 03/12/21 02:01 105 H 22 94 03/12/21 02:00 108 H 26 H 111/67 96 03/12/21 01:50 163 H 18 90 03/12/21 01:45 168 H 22 120/103 H 97 03/12/21 01:40 151 H 23 96 03/12/21 01:31 98 03/12/21 01:30 119/77 98 03/12/21 01:20 143 H 16 100 03/12/21 01:15 146 H 19 124/84 99 03/12/21 01:13 150 H 13 98 03/12/21 01:12 153 H 22 139/92 99 03/12/21 01:10 169 H 18 100 03/12/21 01:00 92 03/12/21 00:50 91 03/12/21 00:40 98 03/12/21 00:37 120 H 18 148/77 H 03/12/21 00:30 100 03/12/21 00:20 98 03/12/21 00:10 78 L 03/12/21 00:00 96 03/11/21 23:50 100 03/11/21 23:45 134/97 87 L 03/11/21 23:40 83 L 03/11/21 23:31 93 03/11/21 23:30 105/88 79 L 03/11/21 23:28 87 L 03/11/21 23:00 100 03/11/21 22:50 100 03/11/21 22:40 94 03/11/21 22:31 106 H 25 H 98 03/11/21 22:30 104 H 22 121/79 99 03/11/21 22:20 112 H 19 92 03/11/21 22:15 104 H 22 129/81 99 03/11/21 22:10 106 H 20 96 03/11/21 22:06 109 H 14 90 03/11/21 22:02 108 H 14 144/90 H 95 03/11/21 20:51 36.2 C L 102 H 18 130/94 99 Laboratory Results Laboratory Results WBC 4.15 K/uL (4.8-10.8) L 03/11/21 21:12 RBC 3.78 M/uL (4.2-5.4) L 03/11/21 21:12 Hgb 11.9 g/dL (12.0-16.0) L 03/11/21 21:12 Hct 34.9 % (37-47) L 03/11/21 21:12 MCV 92.3 fL (80-100) 03/11/21 21:12 MCH 31.5 pg (25-34) 03/11/21 21:12 MCHC 34.1 g/dL (32-36) 03/11/21 21:12 RDW Std Deviation 50.9 fL (36.4-46.3) H 03/11/21 21:12 RDW Coeff of Jake 15.1 % (11.5-14.5) H 03/11/21 21:12 Plt Count 289 K/uL (130-400) 03/11/21 21:12 MPV 9.2 fL (7.4-10.4) 03/11/21 21:12 Immature Gran % (Auto) 0.2 % 03/11/21 21:12 Neut % (Auto) 42.5 % 03/11/21 21:12 Lymph % (Auto) 48.2 % 03/11/21 21:12 Ross % (Auto) 6.0 % 03/11/21 21:12 Eos % (Auto) 1.2 % 03/11/21 21:12 Baso % (Auto) 1.9 % 03/11/21 21:12 Neut # (Auto) 1.76 K/uL (1.4-6.5) 03/11/21 21:12 Lymph # (Auto) 2.00 K/uL (1.2-3.4) 03/11/21 21:12 Ross # (Auto) 0.25 K/uL (0.11-0.59) 03/11/21 21:12 Eos # (Auto) 0.05 K/uL (0-0.5) 03/11/21 21:12 Baso # (Auto) 0.08 K/uL (0-0.2) 03/11/21 21:12 Immature Gran # (Auto) 0.01 K/uL (0.00-0.02) 03/11/21 21:12 Sodium 134 mmol/L (136-145) L 03/11/21 21:12 Potassium 4.4 mmol/L (3.5-5.1) 03/11/21 21:12 Chloride 103 mmol/L (98-107) 03/11/21 21:12 Carbon Dioxide 19 mmol/L (21-32) L 03/11/21 21:12 Anion Gap 12.0 (3-11) H 03/11/21 21:12 BUN 16 mg/dl (7-18) 03/11/21 21:12 Creatinine 0.92 mg/dl (0.6-1.2) 03/11/21 21:12 Est Cr Clr Drug Dosing 65.1 ml/min 03/11/21 21:12 Est GFR ( Amer) 79.0 03/11/21 21:12 Est GFR (Non-Af Amer) 68.2 03/11/21 21:12 BUN/Creatinine Ratio 17.8 (10-20) 03/11/21 21:12 Glucose 98 mg/dl (70-99) 03/11/21 21:12 Calcium 8.3 mg/dl (8.5-10.1) L 03/11/21 21:12 Magnesium 2.2 mg/dl (1.8-2.4) 03/11/21 21:12 Total Bilirubin 0.3 mg/dl (0.2-1) 03/11/21 21:12 AST 45 U/L (15-37) H 03/11/21 21:12 ALT 31 U/L (12-78) 03/11/21 21:12 Alkaline Phosphatase 255 U/L (45-117) H 03/11/21 21:12 Troponin I < 0.015 ng/ml (0-0.045) 03/11/21 21:12 Total Protein 6.8 gm/dl (6.4-8.2) 03/11/21 21:12 Albumin 3.4 gm/dl (3.4-5.0) 03/11/21 21:12 Globulin 3.4 gm/dl (2.5-4.0) 03/11/21 21:12 Albumin/Globulin Ratio 1.0 (0.9-2) 03/11/21 21:12 Lipase 23 U/L (73-393) L 03/11/21 21:12 Specimen Hemolysis 03/11/21 21:12 Urine Color Yellow 03/12/21 01:15 Urine Appearance Clear (Clear) 03/12/21 01:15 Urine pH 5.5 (4.5-7.5) 03/12/21 01:15 Ur Specific [place] 1.015 (1.000-1.030) 03/12/21 01:15 Urine Protein Negative (Negative) 03/12/21 01:15 Urine Glucose (UA) Negative (Negative) 03/12/21 01:15 Urine Ketones Negative (Negative) 03/12/21 01:15 Urine Blood Negative (Negative) 03/12/21 01:15 Urine Nitrite Positive (Negative) A 03/12/21 01:15 Urine Bilirubin Negative (Negative) 03/12/21 01:15 Urine Urobilinogen Negative (Negative) 03/12/21 01:15 Ur Leukocyte Esterase 1+ (Negative) H 03/12/21 01:15 Urine WBC (Auto) 5-10 /hpf (0-5) H 03/12/21 01:15 Urine RBC (Auto) 10-30 /hpf (0-4) H 03/12/21 01:15 U Hyaline Cast (Auto) 0 /lpf (0-5) 03/12/21 01:15 U Epithel Cells (Auto) >30 /lpf (0-5) H 03/12/21 01:15 Urine Bacteria (Auto) 2+ (Negative) H 03/12/21 01:15 Ethyl Alcohol mg/dL 337.4 mg/dl (0-3) H 03/11/21 21:51 COVID-19 Eval Order CovFluRsv at [facility] 03/11/21 22:00 SARS-CoV-2 (PCR) NEGATIVE (Negative) 03/11/21 22:00 Influenza Type A (PCR) Negative (Neg) 03/11/21 22:00 Influenza Type B (PCR) Negative (Neg) 03/11/21 22:00 RSV (RT-PCR) Negative (Neg) 03/11/21 22:[address] abdomen pelvis initial read: Advanced degenerative changes of the right hip with potential avascular necrosis. There is subchondral impaction fracturing along the anterior superior aspect of the femoral head the appearance of which is similar to 01/31/2021. Cholecystectomy. Sequela of chronic pancreatitis. Status post gastric bypass. EKG as per my interpretation: Rate 100, NSR, RAD, T wave abnormalities inferior leads
[2021-03-12 03:13] LABS: Thyroid Stimulating Hormone 2.77 uIu/ml (0.300-4.500)
[2021-03-12] MEDS ORDERED: PROMETHAZINE HCL 12.5 MG in SODIUM CHLORIDE 0.9% 50 ML IV PRN (03:39)
[2021-03-12] MEDS ORDERED: LACTATED RINGER'S 1,000 ML IV ONE (03:39)
[2021-03-12] MEDS ORDERED: LORazepam 1 MG/2 ML VIAL IV PRN (03:39)
[2021-03-12] MEDS ORDERED: LORazepam 3 MG/6 ML VIAL IV PRN (03:39)
[2021-03-12] MEDS ORDERED: ATIVAN IV ALCOHOL WITHDRAWL IV PRN (03:39)
[2021-03-12] MEDS ORDERED: LORazepam 2 MG/4 ML VIAL IV PRN (03:39)
[2021-03-12] MEDS ORDERED: ACETAMINOPHEN 325 MG TAB PO PRN (03:39)
[2021-03-12] MEDS ORDERED: SUCRALFATE 1 GM TAB PO PRN (03:39)
[2021-03-12 04:17] LABS: INR 1.2 (0.9-1.1); Prothrombin Time 11.6 Seconds (9.0-12.0)
[2021-03-12] MEDS: METOPROLOL TARTRATE 25 MG TAB PO SCH ×3 (04:54→21:21)
[2021-03-12] MEDS: rifAXIMin 550 MG TABLET PO SCH ×3 (04:54→21:20)
[2021-03-12] MEDS: LEVOTHYROXINE SODIUM 75 MCG TABLET PO SCH (05:00)
[2021-03-12 06:35] LABS: Basophils # (auto) 0.06 K/uL (0-0.2); Basophils % (auto) 1.3 %; Eosinophils % (auto) 2.1 %; Hematocrit (blood only) 31.2 % (37-47); Hemoglobin 10.4 g/dL (12.0-16.0); Mean Corpuscular Hemoglobin 31.2 pg (25-34); Mean Corpuscular Hgb Conc 33.3 g/dL (32-36); Mean Corpuscular Volume 93.7 fL (80-100); Mean Platelet Volume 9.3 fL (7.4-10.4); Monocytes # (auto) 0.35 K/uL (0.11-0.59); Monocytes % (auto) 7.5 %; Neutrophils # (auto) 2.06 K/uL (1.4-6.5); Neutrophils % (auto) 44.1 %; Platelet Count 229 K/uL (130-400); RDW Coefficient of Variation 14.9 % (11.5-14.5); RDW Standard Deviation 51.1 fL (36.4-46.3); Red Blood Count 3.33 M/uL (4.2-5.4); White Blood Count 4.67 K/uL (4.8-10.8)
[2021-03-12 07:23] LABS: Albumin Level 2.8 gm/dl (3.4-5.0); Bilirubin,Total 0.3 mg/dl (0.2-1); Calcium 7.9 mg/dl (8.5-10.1); Creatinine Clr Calc Pharmacy 76.4 ml/min; Est GFR (Non-African American) 81.9; Globulin 2.8 gm/dl (2.5-4.0); Potassium 4.1 mmol/L (3.5-5.1); Total Protein 5.6 gm/dl (6.4-8.2)
--- NOTE | 2021-03-12 07:41 | CT Scan Report ---
CT SCAN OF THE ABDOMEN AND PELVIS WITH IV CONTRAST CLINICAL HISTORY: Fall. Right hip pain. Intoxication. COMPARISON STUDY: Abdominal CT dated 01/31/2021. TECHNIQUE: Following the IV administration of 84 cc of Optiray 300, CT scan of the abdomen and pelvi s is performed from the lung bases to the proximal femora. Images are reviewed in the axial, sagittal , and coronal planes. IV contrast was administered without complication. A dose lowering technique wa s utilized adhering to the principles of ALARA. The examination is degraded by streak artifact from t he right arm which could not be elevated above the abdomen. CT DOSE: 527.06 mGy.cm FINDINGS: Lung bases: The heart is normal in size and without pericardial effusion. There are coronary artery c alcifications. The lung bases are clear. Liver: The contrast-enhanced liver is cirrhotic in morphology and heterogeneous in attenuation. There is hypertrophy of the left lobe and caudate as well as nodularity of the surface contour. Hepatic at tenuation is diffusely diminished consistent with steatosis. There is no intrahepatic biliary ductal dilatation. The hepatic veins and portal veins are patent. Gallbladder: Surgically absent noting clips in the gallbladder fossa. Spleen: Normal in size and attenuation. There is a 9 mm splenic artery aneurysm seen on image #114. Pancreas: The pancreas is markedly atrophic and contains numerous calcifications. This is consistent with chronic pancreatitis. Prominence of the pancreatic duct is likely related to glandular atrophy. Adrenal glands: Unremarkable. Kidneys: The contrast enhanced kidneys are atrophic and without hydronephrosis. The kidneys enhance s ymmetrically. There is 1 cm partially calcified aneurysm of the right renal artery seen on image #135 . Abdominal vasculature: The abdominal aorta is normal in course and caliber. Stomach and bowel: There is a small hiatal hernia. Postoperative changes consistent with a history of Silvio-en-Y gastric bypass surgery. There is no bowel obstruction. The appendix is well-visualized an d normal. Peritoneum: There is no intraperitoneal free air or abdominal ascites. There is evidence of previous ventral hernia repair in the upper abdomen. Lymphadenopathy: None. Pelvic viscera: The bladder, uterus, and adnexa are normal as visualized. There is asymmetric atrophy of the right pelvic musculature. Skeletal structures: The skeletal structures are osteopenic. No lytic or blastic lesions are seen. Ag ain seen is advanced arthritic change with possible avascular necrosis in the right hip. Subchondral collapse is again noted in the right femoral head. This is similar to previous. A joint effusion is a gain noted in the right hip. There are healed bilateral rib fractures. The lumbosacral spine, bony pe lvis, and proximal femora appear intact. There is a minimal chronic superior endplate compression def ormity of L1. IMPRESSION: 1. There is no evidence of solid organ injury in the abdomen or pelvis. 2. The liver is cirrhotic in morphology with evidence of steatosis. 3. There is evidence of chronic pancreatitis. 4. There is postoperative change consistent with previous gastric bypass surgery. No bowel obstructio n is seen. 5. 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 6. Advanced degenerative change and avascular necrosis of the right proximal femur with subchondral c ollapse of the femoral head is similar to previous. There is associated joint effusion. 7. No acute fracture is identified. 8. Additional findings as above. ACT 112: Negative or not required by law. Electronically signed by: Oscar Rainey M.D. 03/12/2021 7:39 AM
[2021-03-12] MEDS: PANTOprazole 40 MG TAB PO SCH ×2 (08:13→21:21)
[2021-03-12] MEDS: CETIRIZINE HCL 10 MG TABLET PO SCH (08:14)
[2021-03-12] MEDS: MULTIVITAMIN TAB PO SCH (08:14)
[2021-03-12] MEDS: ENOXAPARIN INJ 40 MG/0.4 ML SYR SQ SCH (08:14)
[2021-03-12] MEDS: DULoxetine HCL 60 MG CAP PO SCH (08:14)
[2021-03-12] MEDS: GABAPENTIN 300 MG CAP PO SCH ×2 (08:14→21:21)
[2021-03-12] MEDS: HYDROmorphone HCL 2 MG TAB PO PRN ×3 (08:24→22:45)
--- NOTE | 2021-03-12 11:28 | Hospitalist Progress Note ---
Date of Service March 12, 2021 Assessment & Plan (1) Alcohol withdrawal: Patient appears oriented although somnolent, she has not needed Ativan since last night. As a result of drowsiness she did not receive high-dose gabapentin. She remains on chronic home Dilaudid. This may be contributing somewhat to her sleepiness. Sinus tachycardia may be indicative of persistent withdrawal symptoms/uncontrolled pain from right hip/knee. (2) Right hip pain: Known history of avascular necrosis of right hip. Recurrent trauma including fall yesterday. Consult orthopedics and defer imaging to them. (3) Avascular necrosis of bone of right hip: Patient recently seen by [facility] orthopedics for right knee and right hip pain. Nonoperative intervention for right acetabular fracture noted in H&P (outpatient records unavailable at this time). Elective right knee surgery contemplated for possible prosthetic joint infection entailing removal of static spacer and placement of articulating spacer contemplated for next month pending preoperative cardiovascular evaluation which was recently done as outpatient. Will consult orthopedics in light of recent fall yesterday. (4) Infection of prosthetic right knee joint: Possible upcoming elective right knee surgery contemplated for removal of static spacer. (5) Fall: Recurrent falls, possibly secondary to alcoholism. Patient recently had a fall last night. Persistent hip and possibly knee pain. Exam is limited secondary to lethargy/somnolence. Defer need for imaging to Ortho. Patient had an MRI of her hip November 26, 2020 revealing avascular necrosis of the anterior superior humeral head with subchondral fracture and articular collapse which had progressively worsened from the September 02, 2020 exam. (6) Chronic pain syndrome: She continues on Dilaudid, Cymbalta, cyclobenzaprine as needed, gabapentin 300 mg p.o. twice daily per home regimen. (7) Hypothyroidism: Continue levothyroxine per home regimen. (8) Alcoholic cirrhosis of liver without ascites: She is appearing compensated from a liver standpoint. She is oriented and despite ammonia level of 41 does not appear to have an hepatic encephalopathy at this point. Continue to monitor clinically. Continue Xifaxan per home regimen. She is not on diuretics for ascites. (9) DVT prophylaxis: Lovenox Full code Disposition-pending PT/OT and orthopedic evaluations, most likely to home when medically stable in the next 1 to 2 days. Ade Brown DO [facility] Hospitalist Admission and Anticipated Discharge Date Admission Date: March 12, 2021 Subjective 61-year-old alcoholic female presented with acute on chronic right hip pain. She has a history of traumatic avascular necrosis since a fall last year and is followed by an orthopedic surgeon in [place]. Current records unavailable. Yesterday she tripped over her walker landing on her right side denying any loss of consciousness. She is on narcotics and has been treated for alcohol withdrawal symptoms overnight. She is currently oriented but somnolent this morning. She does still report some right hip pain present. She has not attempted to get up and walk around at this time. PT and OT have been consulted but of not seen her yet. She is tolerating p.o. Review of Systems Review of Systems: All systems reviewed & are unremarkable except as noted in Subjective Physical Exam Physical Exam: CONSTITUTIONAL: WNWD, vitals as above, NAD, lethargic EYES: normal n, no scleral icterus ENT: external ear and nose normal, MMM NECK: trachea midline RESPIRATORY: clear to auscultation bilaterally, no crackles, rales or wheezes, normal respiratory effort CARDIOVASCULAR: regular rate and rhythm, S1 and 2 heard without murmurs, gallops or rubs, no JVD, no peripheral edema GASTROINTESTINAL: soft, nontender, nondistended, no guarding MUSCULOSKELETAL: moves arms and legs equally , however, limited exam 2/2 lack of participation. She reports hip pain on the right with movement of right leg. Head is normocephalic and atraumatic SKIN: warm and dry NEUROLOGIC: limited as patient is sleepy and only somewhat participating with exam. CN 2-12 grossly intact, no sensory deficit, normal cognition, normal speech, no tremor PSYCHIATRIC: alert cooperative and oriented to person, place and time. Results & Data Results & Data ([facility]) Vital Signs (Past 12 Hours) Vital Signs Temp Pulse Pulse Resp BP BP Pulse Ox 03/12/21 08:30 37 C 118 H 18 138/75 99 03/12/21 07:00 99 H 03/12/21 05:12 99 H 127/68 03/12/21 03:15 37.0 C 104 H 20 120/80 99 03/12/21 02:31 99 H 18 98 03/12/21 02:30 100 H 17 127/68 98 03/12/21 02:20 101 H 23 97 03/12/21 02:15 102 H 17 122/94 100 03/12/21 02:10 102 H 18 98 03/12/21 02:01 105 H 22 94 03/12/21 02:00 108 H 26 H 111/67 96 03/12/21 01:50 163 H 18 90 03/12/21 01:45 168 H 22 120/103 H 97 03/12/21 01:40 151 H 23 96 03/12/21 01:31 98 03/12/21 01:30 119/77 98 03/12/21 01:20 143 H 16 100 03/12/21 01:15 146 H 19 124/84 99 03/12/21 01:13 150 H 13 98 03/12/21 01:12 153 H 22 139/92 99 03/12/21 01:10 169 H 18 100 03/12/21 01:00 92 03/12/21 00:50 91 03/12/21 00:40 98 03/12/21 00:37 120 H 18 148/77 H 03/12/21 00:30 100 03/12/21 00:20 98 03/12/21 00:10 78 L 03/12/21 00:00 96 03/11/21 23:50 100 03/11/21 23:45 134/97 87 L 03/11/21 23:40 83 L 03/11/21 23:31 93 03/11/21 23:30 105/88 79 L 03/11/21 23:28 87 L 03/11/21 23:00 100 03/11/21 22:50 100 Laboratory Results Short CBC 03/11/21 03/12/21 Range/Units 21:12 06:05 WBC 4.15 L 4.67 L (4.8-10.8) K/uL Hgb 11.9 L 10.4 L (12.0-16.0) g/dL Hct 34.9 L 31.2 L (37-47) % Plt Count 289 229 (130-400) K/uL BMP 03/11/21 03/12/21 21:12 06:05 Sodium 134 L 141 D Potassium 4.4 4.1 Chloride 103 111 H Carbon Dioxide 19 L 18 L BUN 16 13 Creatinine 0.92 0.79 Glucose 98 60 L Calcium 8.3 L 7.9 L Cardiac Enzymes 03/11/21 03/11/21 Range/Units 21:12 21:12 Total Creatine Kinase 69 (26-192) U/L Troponin I < 0.015 (0-0.045) ng/ml Liver Function 03/11/21 03/12/21 Range/Units 21:12 06:05 Total Bilirubin 0.3 0.3 (0.2-1) mg/dl AST 45 H 37 (15-37) U/L ALT 31 26 (12-78) U/L Alkaline Phosphatase 255 H 229 H (45-117) U/L Albumin 3.4 2.8 L (3.4-5.0) gm/dl Urine 03/12/21 Range/Units 01:15 Urine Color Yellow Urine Appearance Clear (Clear) Urine pH 5.5 (4.5-7.5) Ur Specific [place] 1.015 (1.000-1.030) Urine Protein Negative (Negative) Urine Glucose (UA) Negative (Negative) Medications Administered Current Inpatient Medications Acetaminophen (Acetaminophen 325 Mg Tab) 325 mg PO Q6H PRN PRN Reason: Mild Pain Stop: 04/11/21 03:38 Cetirizine HCl (Cetirizine Hcl 10 Mg Tablet) [facility] [place] [facility] Stop: 04/11/21 08:59 Last Admin: 03/12/21 08:14 Dose: 10 mg Documented by: Duloxetine HCl (Duloxetine Hcl 60 Mg Cap) 60 mg PO QAM [facility] Stop: 04/11/21 08:59 Last Admin: 03/12/21 08:14 Dose: 60 mg Documented by: Enoxaparin Sodium (Enoxaparin Inj 40 Mg/0.4 Ml Syr) 40 mg SQ [facility] [place] Stop: 04/11/21 08:59 Last Admin: 03/12/21 08:14 Dose: 40 mg Documented by: Folic Acid (Folic Acid 1 Mg Tab) 1 mg PO QAM [facility] Stop: 04/12/21 08:59 Gabapentin (Gabapentin 300 Mg Cap) 300 mg PO BID [facility] Stop: 04/11/21 08:59 Last Admin: 03/12/21 08:14 Dose: 300 mg Documented by: Hydromorphone HCl (Hydromorphone Hcl 2 Mg Tab) 2 mg PO QID PRN PRN Reason: Pain Stop: 03/26/21 03:38 Last Admin: 03/12/21 08:24 Dose: 2 mg Documented by: Lorazepam (Ativan) 1 mg in 2 mls @ 2 mls/min IV UD PRN; Protocol PRN Reason: EtOH Withdrawl AWSS Score 6,7 Stop: 04/11/21 03:38 Lorazepam (Ativan) 2 mg in 4 mls @ 4 mls/min IV UD PRN; Protocol PRN Reason: EtOH Withdrawl AWSS Score 8,9 Stop: 04/11/21 03:38 Lorazepam (Ativan) 3 mg in 6 mls @ 4 mls/min IV ONCE PRN; Protocol PRN Reason: EtOH Withdrawl AWSS Score >=10 Stop: 04/11/21 03:38 Levothyroxine Sodium (Levothyroxine Sodium 75 Mcg Tablet) 75 mcg PO DAILYBB [facility] Stop: 04/11/21 06:29 Last Admin: 03/12/21 05:00 Dose: Not Given Documented by: Metoprolol Tartrate (Metoprolol Tartrate 25 Mg Tab) 25 mg PO BID [facility] Stop: 04/11/21 03:38 Last Admin: 03/12/21 08:20 Dose: 25 mg Documented by: Multivitamins (Multivitamin Tab) 1 tab PO [facility] Stop: 04/11/21 08:59 Last Admin: 03/12/21 08:14 Dose: 1 tab Documented by: Pantoprazole Sodium (Pantoprazole 40 Mg Tab) 40 mg PO BID [facility] Stop: 04/11/21 08:59 Last Admin: 03/12/21 08:13 Dose: 40 mg Documented by: Rifaximin (Rifaximin 550 Mg Tablet) 550 mg PO BID [facility] Stop: 04/11/21 03:38 Last Admin: 03/12/21 08:13 Dose: 550 mg Documented by: Sucralfate (Sucralfate 1 Gm Tab) 1 gm PO BID PRN PRN Reason: Stomach Upset Stop: 04/11/21 03:38 Last Admin: 03/12/21 08:12 Dose: 1 gm Documented by: Thiamine HCl (Thiamine Hcl 100 Mg Tab) 100 mg PO QAM [facility] Stop: 04/12/21 08:59 (1) Alcohol withdrawal Complication of substance-induced condition: uncomplicated Qualified Code(s): F10.230 - Alcohol dependence with withdrawal, uncomplicated (2) Fall Encounter type: initial encounter Qualified Code(s): W19.XXXA - Unspecified fall, initial encounter
[2021-03-12] MEDS: LACTULOSE SYRUP 30 GM/45 ML UDP PO SCH ×2 (18:28→21:21)
--- NOTE | 2021-03-12 19:36 | Orthopedic Consultation ---
Date of Consultation March 12, 2021 Assessment & Plan (1) Infection of prosthetic right knee joint: Patient follows with [facility] orthopedics in [facility] tentatively scheduled for revision right total knee arthroplasty on April 02, 2021. No further intervention needed at this time. She is to follow-up with her orthopedic surgeon upon discharge. 50% weightbearing on right lower extremity. (2) Avascular necrosis of bone of right hip: Continue with conservative treatments at this time, patient currently following with [facility] orthopedics, do not recommend any intervention due to right knee P JI status post static antibiotic cement spacer. 50% weightbearing right lower extremity, ambulate with assistive device such as a walker, pain control. Patient will follow up with her orthopedic surgeon at [facility] in [facility]. Thank you for the consultation. History of Present Illness Reason for Consultation: Right hip pain/avascular necrosis Attending Physician: Ade Brown, History of Present Illness The patient is a 61-year-old female with past medical history noted below, sustained a mechanical fall onto her left hip on 03/11/2021 was brought to [facility] secondary to inability to ambulate. X-rays obtained and CT scan are negative for fracture, patient has history of avascular necrosis of her right hip and history for previous right knee P JI status post explant and static antibiotic cement spacer. Patient follows with [facility] orthopedics in [facility]. Patient was seen last week by her orthopedic surgeons and is scheduled for revision right total knee arthroplasty on April 02, 2021. Patient denies any associated injuries. States her pain is at her baseline. CT obtained in the emergency department demonstrate unchanged avascular necrosis of the right hip compared to prior imaging. Allergies Allergy/AdvReac Type Severity Reaction Status Date / Time cefaclor Allergy Intermediate Swelling Verified 03/11/21 22:25 oxycodone Allergy Intermediate HIVES Verified 03/11/21 22:25 amoxicillin Allergy Mild Nausea Verified 03/11/21 22:25 ceftriaxone [From Rocephin] Allergy Rash Verified 03/11/21 22:25 metronidazole [From Flagyl] Allergy Rash Verified 03/11/21 22:25 Home Medications Medication Instructions Recorded Confirmed Type cyanocobalamin (vitamin B-12) 1,000 mcg PO QAM 08/22/18 03/11/21 History [Vitamin B-12] multivitamin 1 tab PO QAM 08/22/18 03/11/21 History Xifaxan 550 mg PO BID 10/03/18 03/11/21 History cholecalciferol (vitamin D3) 4,000 unit PO QAM 10/03/18 03/11/21 History [Vitamin D3] duloxetine [Cymbalta] 60 mg PO QAM 07/19/19 03/11/21 History pantoprazole [Protonix] 40 mg PO BID 07/19/19 03/11/21 History cetirizine [Zyrtec] 10 mg PO QAM 04/05/20 03/11/21 History gabapentin 300 mg PO BID #60 cap 06/23/20 03/11/21 Rx amitriptyline 50 mg PO HS PRN 09/02/20 03/11/21 History cyclobenzaprine 10 mg PO HS PRN 09/02/20 03/11/21 History ferrous sulfate 220 mg PO DAILY 11/25/20 03/11/21 History lactulose 45 ml PO DAILY PRN 11/25/20 03/11/21 History levothyroxine 75 mcg PO DAILY 11/25/20 03/11/21 History magnesium oxide 400 mg PO DAILY 11/25/20 03/11/21 History potassium chloride 10 meq PO BID 11/25/20 03/11/21 History sucralfate 1 g PO BID PRN 11/25/20 03/11/21 History torsemide 20 mg PO DAILY 11/25/20 03/11/21 History metoprolol tartrate 25 mg PO BID #0 tab 11/28/20 03/11/21 Rx hydromorphone [Dilaudid] 2 mg PO UD PRN #4 tab 12/13/20 03/11/21 Rx ondansetron HCl [Zofran] 4 mg PO Q6H PRN #6 tab 01/31/21 03/11/21 Rx levofloxacin 750 mg PO Q24H 5 Days #5 tab 03/13/21 Rx Patient History Medical History REJI (acute kidney injury) Anemia, iron deficiency Ascites Cirrhosis CKD (chronic kidney disease) stage 3, GFR 30-59 ml/min Depression Gastric peptic ulcer Hypothyroidism Neuropathy of both feet On anticoagulant therapy warfarin daily Surgical History History of arthrodesis left leg History of arthroplasty of right shoulder unable to lift arm after sx History of arthroscopy of left knee x2 History of arthroscopy of right knee x7 History of cardiac cath 2011--no stents History of cholecystectomy History of colonoscopy History of esophagogastroduodenoscopy (EGD) History of gastric bypass History of open reduction and internal fixation (ORIF) procedure left tib/fib fx--hardware in place History of surgery on extremity 2016--right leg hardware in place per pt a "fusion of her leg" History of tooth extraction all teeth removed History of total right knee replacement (TKR) 2006 Family History Sister Breast cancer Mother Hypertension Diabetes Other No family history of adverse response to anesthesia Social History Smoking Status: Never smoker Second Hand Exposure: No; Hx Alcohol Use: Yes Alcohol type: wine and hard liquor Alcohol Intake Frequency: 4 or More x per/Week Alcohol Intake Frequency Comment: Pt states now drinks approx twice a week Hx Substance Use: No Preferred Language: Micronesian Communication Ability: Effective Solution Coordinator Required: No Beliefs That Will Affect Care: None marital status: Single Current Living Situation: Alone Other Information That Helps Us Care for You: No Feels Safe at Home: Yes Safety Concerns: Feels Safe At This Time Assistive Devices: Walker Review of Systems Constitutional: as per Subjective / HPI Physical Exam Physical Exam: Right lower extremity is neurovascular and sensory intact grossly, compartment soft nontender, +2 dorsalis pedis pulse, painful range of motion of right hip with decreased muscle strength. Constitutional: WD/WN, vitals as above Results & Data ([facility]) Vital Signs (Past 12 Hours) Vital Signs Temp Pulse Resp BP Pulse Ox 03/12/21 19:01 154/89 H 03/12/21 14:50 37.2 C 95 H 20 160/94 H 95 03/12/21 11:31 37.1 C 95 H 16 117/72 97 03/12/21 08:30 37 C 118 H 18 138/[address] SCAN OF THE ABDOMEN AND PELVIS WITH IV CONTRAST CLINICAL HISTORY: Fall. Right hip pain. Intoxication. COMPARISON STUDY: Abdominal CT dated 01/31/2021. TECHNIQUE: Following the IV administration of 84 cc of Optiray 300, CT scan of the abdomen and pelvis is performed from the lung bases to the proximal femora. Images are reviewed in the axial, sagittal, and coronal planes. IV contrast was administered without complication. A dose lowering technique was utilized adhering to the principles of ALARA. The examination is degraded by streak artifact from the right arm which could not be elevated above the abdomen. CT DOSE: 527.06 mGy.cm FINDINGS: Lung bases: The heart is normal in size and without pericardial effusion. There are coronary artery calcifications. The lung bases are clear. Liver: The contrast-enhanced liver is cirrhotic in morphology and heterogeneous in attenuation. There is hypertrophy of the left lobe and caudate as well as nodularity of the surface contour. Hepatic attenuation is diffusely diminished consistent with steatosis. There is no intrahepatic biliary ductal dilatation. The hepatic veins and portal veins are patent. Gallbladder: Surgically absent noting clips in the gallbladder fossa. Spleen: Normal in size and attenuation. There is a 9 mm splenic artery aneurysm seen on image #114. Pancreas: The pancreas is markedly atrophic and contains numerous calcifications. This is consistent with chronic pancreatitis. Prominence of the pancreatic duct is likely related to glandular atrophy. Adrenal glands: Unremarkable. Kidneys: The contrast enhanced kidneys are atrophic and without hydronephrosis. The kidneys enhance symmetrically. There is 1 cm partially calcified aneurysm of the right renal artery seen on image #135. Abdominal vasculature: The abdominal aorta is normal in course and caliber. Stomach and bowel: There is a small hiatal hernia. Postoperative changes consistent with a history of Silvio-en-Y gastric bypass surgery. There is no bowel obstruction. The appendix is well-visualized and normal. Peritoneum: There is no intraperitoneal free air or abdominal ascites. There is evidence of previous ventral hernia repair in the upper abdomen. Lymphadenopathy: None. Pelvic viscera: The bladder, uterus, and adnexa are normal as visualized. There is asymmetric atrophy of the right pelvic musculature. Skeletal structures: The skeletal structures are osteopenic. No lytic or blastic lesions are seen. Again seen is advanced arthritic change with possible avascular necrosis in the right hip. Subchondral collapse is again noted in the right femoral head. This is similar to previous. A joint effusion is again noted in the right hip. There are healed bilateral rib fractures. The lumbosacral spine, bony pelvis, and proximal femora appear intact. There is a minimal chronic superior endplate compression deformity of L1. IMPRESSION: 1. There is no evidence of solid organ injury in the abdomen or pelvis. 2. The liver is cirrhotic in morphology with evidence of steatosis. 3. There is evidence of chronic pancreatitis. 4. There is postoperative change consistent with previous gastric bypass surgery. No bowel obstruction is seen. 5. 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 6. Advanced degenerative change and avascular necrosis of the right proximal femur with subchondral collapse of the femoral head is similar to previous. There is associated joint effusion. 7. No acute fracture is identified. 8. Additional findings as above.
[2021-03-12] MEDS ORDERED: LIDOCAINE 5% 1 PATCH TD SCH (21:00)
[2021-03-13] MEDS: LEVOTHYROXINE SODIUM 75 MCG TABLET PO SCH (06:16)
[2021-03-13] MEDS: HYDROmorphone HCL 2 MG TAB PO PRN (06:19)
--- NOTE | 2021-03-13 06:23 | Electrocardiogram Report ---
Test Reason : Blood Pressure : / mmHG Vent. Rate : 100 BPM Atrial Rate : 100 BPM P-R Int : 136 ms QRS Dur : 096 ms QT Int : 364 ms P-R-T Axes : 038 109 -19 degrees QTc Int : 469 ms Normal sinus rhythm Rightward axis T wave abnormality, consider inferior ischemia Abnormal ECG When compared with ECG of 11-Mar-2021 22:01, QRS axis Shifted right T wave inversion now evident in Inferior leads Nonspecific T wave abnormality now evident in Lateral leads Confirmed by Jose M Kc ([id number]) on 03/13/2021 6:22:46 AM Referred By: REFERRED SELF Confirmed By:Jose M Kc
[2021-03-13] MEDS: rifAXIMin 550 MG TABLET PO SCH (08:31)
[2021-03-13] MEDS: DULoxetine HCL 60 MG CAP PO SCH (08:32)
[2021-03-13] MEDS: METOPROLOL TARTRATE 25 MG TAB PO SCH (08:32)
[2021-03-13] MEDS: PANTOprazole 40 MG TAB PO SCH (08:32)
[2021-03-13] MEDS: MULTIVITAMIN TAB PO SCH (08:32)
[2021-03-13] MEDS: CETIRIZINE HCL 10 MG TABLET PO SCH (08:32)
[2021-03-13] MEDS: LACTULOSE SYRUP 30 GM/45 ML UDP PO SCH (08:33)
[2021-03-13] MEDS: GABAPENTIN 300 MG CAP PO SCH (08:34)
[2021-03-13] MEDS: ENOXAPARIN INJ 40 MG/0.4 ML SYR SQ SCH (08:34)
[2021-03-13] MEDS ORDERED: FOLIC ACID 1 MG TAB PO SCH (09:00)
[2021-03-13] MEDS ORDERED: THIAMINE HCL 100 MG TAB PO SCH (09:00)
[2021-03-13] MEDS ORDERED: MAGNESIUM OXIDE 400 MG TAB PO SCH (09:00)
--- NOTE | 2021-03-13 11:03 | Communication Note ---
Date of Service: March 13, 2021 Urine culture : gram negative bacilli isolation /sensitivity pending prior hx of Pseudomonas UTI -sensitive to Cipro pt has multiple ABx allergies : Cefaclor , Rocephin ,Amoxicillion PO Cipro 500 mg BID ordered for uncomplicated UTI will need 5 days tx Alyson Frias MD
[2021-03-13] MEDS ORDERED: CIPROFLOXACIN 500 MG TAB PO SCH (11:15)
[2021-03-13] MEDS ORDERED: levoFLOXacin 750 MG TAB PO SCH (12:30)
--- NOTE | 2021-03-13 14:53 | Hospitalist Progress Note ---
Date of Service March 13, 2021 Assessment & Plan (1) Alcohol withdrawal: Awake and alert, conversing appropriately, stable vitals, No sign or symptom of alcohol withdrawal, Patient reports last alcohol intake was almost 4 days back Aware that she has alcohol addiction Does not want to go to inpatient alcohol rehab, Wants to follow-up with outpatient alcohol counseling, UTI: Urine culture : E. coli: Pansensitive pt has multiple ABx allergies : Cefaclor , Rocephin ,Amoxicillion Ciprofloxacin avoided for patient's drug interaction with Cymbalta Patient is discharged home with p.o. Levaquin 750 mg daily will need 5 days tx (2) Right hip pain: Known history of avascular necrosis of right hip. Pain is better controlled (3) Avascular necrosis of bone of right hip: Patient recently seen [place] [facility] [place] for right knee and right hip pain. Nonoperative intervention for right acetabular fracture . Elective right knee surgery scheduled for April 02 at [facility] possible prosthetic joint infection entailing removal of static spacer and placement of articulating spacer Orthopedics eval appreciated, recommends no further intervention, outpatient follow-up with [facility] as scheduled (4) Infection of prosthetic right knee joint: Scheduled for elective right knee surgery with removal of static spacer. On April 02 [place] (5) Fall: Possible secondary to alcohol intoxication, patient also has vascular necrosis of right hip. PT OT eval appreciated, stable QTC be discharged home with home health home PT (6) Chronic pain syndrome: Continue outpatient meds (7) Hypothyroidism: Continue levothyroxine per home regimen. (8) Alcoholic cirrhosis of liver without ascites: Continue Xifaxan per home regimen. (9) DVT prophylaxis: Lovenox Full code Disposition-patient is discharged home today Admission and Anticipated Discharge Date Admission Date: March 12, 2021 Subjective She reports right hip pain is better Knee pain is currently tolerable, evaluated by orthopedics, no intervention indicated patient is scheduled to see orthopedics on April 02 at [facility], No fever chills, no sign or symptoms of alcohol withdrawal Denies of any chest pain shortness of breath no fever or chills Eager to be discharged home today Review of Systems Review of Systems: All systems reviewed & are unremarkable except as noted in Subjective Physical Exam Physical Exam: Physical exam: General: No acute distress, alert awake oriented x3 HEENT: PERRLA, EOMI, Heart: Regular S1-S2, no carotid bruit, no JVD, Lungs: Clear to auscultate, no wheeze or rales Abdomen: Soft nontender, no organomegaly Extremity: Positive tenderness on right knee, healed surgical incision from prior knee surgery, no overlying erythema Neuro: No focal neurological deficit normal speech, Psych: Alert awake oriented x3, normal affect Results & Data Results & Data ([facility]) Vital Signs (Past 12 Hours) Vital Signs Temp Pulse Resp BP Pulse Ox 03/13/21 10:10 37.4 C 72 16 147/94 H 98 03/13/21 08:30 78 163/94 H 03/13/21 06:23 36.5 C 77 18 153/85 H 98 03/13/21 06:15 156/98 H 03/13/21 06:05 37.4 C 82 16 165/96 H 97 (1) Alcohol withdrawal Complication of substance-induced condition: uncomplicated Qualified Code(s): F10.230 - Alcohol dependence with withdrawal, uncomplicated (2) Fall Encounter type: initial encounter Qualified Code(s): W19.XXXA - Unspecified fall, initial encounter
--- NOTE | 2021-03-14 11:18 | Discharge Summary ---
Date of Service March 14, 2021 Admission HPI Per Admitting Provider History obtained from patient and records. Limited history from patient secondary to disorientation. Medical history significant for PAF, hypertension, chronic pain, alcoholic cirrhosis, chronic anemia (patient hemoglobin 10), mood disorder, history of gastric bypass, hypothyroidism. Last confinement December 2020 for right hip pain attributed to right acetabular fracture/avascular necrosis femoral head secondary to fall. Patient refused rehab placement. Patient discharge home with home health. Patient seen at [facility] last week for right knee pain complaints. Nonoperative intervention for right acetabular fracture as per documentation. Elective right knee surgery contemplated for possible prosthetic joint infection entailing removal of static spacer and placement of articulating spacer contemplated for next month pending preop cardiovascular evaluation as per documentation. Patient sister notified PCP's office of patient drinking heavily again last week. Sister inquiring about treatment services. Last night, patient tripped over her walking landing on her right side. Achy right hip pain. Denies head trauma or LOC. Patient denies chest pain, S OB, headache. Patient brought to the ER for evaluation. Patient subsequently noted to be agitated and disoriented at the ER. IV Ativan given at the ER for alcohol withdrawal. SVT later noted on the monitor, cardiac rate 160s. Patient denies chest pain, S OB. Medical History as above Surgical History : Gastric bypass, knee surgery, shoulder surgery, cholecystectomy Family History : Breast cancer, DM, heart disease Personal/Social history : Non-smoker, alcohol abuse as per records Principal Diagnosis Avascular necrosis of right hip. Infection of prosthetic right knee joint History of chronic alcohol abuse/withdrawal. Discharge Data Allergies Allergy/AdvReac Type Severity Reaction Status Date / Time cefaclor Allergy Intermediate Swelling Verified 03/11/21 22:25 oxycodone Allergy Intermediate HIVES Verified 03/11/21 22:25 amoxicillin Allergy Mild Nausea Verified 03/11/21 22:25 ceftriaxone [From Rocephin] Allergy Rash Verified 03/11/21 22:25 metronidazole [From Flagyl] Allergy Rash Verified 03/11/21 22:25 Consultations 03/12/21 01:28 ED Decision to Admit Stat 03/12/21 11:29 Consult Orthopedic Surgery Routine Ordered Studies 03/11/21 21:31 CT abd pelvis IV con only Urgent Hospital Course (1) Alcohol withdrawal: Awake and alert, conversing appropriately, stable vitals, No sign or symptom of alcohol withdrawal, Patient reports last alcohol intake was almost 4 days back Aware that she has alcohol addiction Does not want to go to inpatient alcohol rehab, Wants to follow-up with outpatient alcohol counseling, UTI: Urine culture : E. coli: Pansensitive pt has multiple ABx allergies : Cefaclor , Rocephin ,Amoxicillion Ciprofloxacin avoided for patient's drug interaction with Cymbalta Patient is discharged home with p.o. Levaquin 750 mg daily will need 5 days tx (2) Right hip pain: Known history of avascular necrosis of right hip. Pain is better controlled (3) Avascular necrosis of bone of right hip: Patient recently seen by [facility] for right knee and right hip pain. Nonoperative intervention for right acetabular fracture . Elective right knee surgery scheduled for April 02 at [facility] possible prosthetic joint infection entailing removal of static spacer and placement of articulating spacer Orthopedics ashia appreciated, recommends no further intervention, outpatient follow-up with [facility] as scheduled (4) Infection of prosthetic right knee joint: Scheduled for elective right knee surgery with removal of static spacer. On April 02 [place] (5) Fall: Possible secondary to alcohol intoxication, patient also has vascular necrosis of right hip. PT OT ashia appreciated, recommends to discharged home with home health home PT (6) Chronic pain syndrome: Continue outpatient meds (7) Hypothyroidism: Continue levothyroxine per home regimen. (8) Alcoholic cirrhosis of liver without ascites: Continue Xifaxan per home regimen. (9) DVT prophylaxis: Lovenox Full code Disposition-patient is discharged home today Total Time Total Time Spent Total Time Spent (In Minutes): 35 minutes Total Time Includes: Examination of the Patient, Discharge Planning and Medication Reconciliation Discharge Plan Discharge Items Patient Disposition: Home - Home Health Services Reason For Visit: PSVT, ETOH WITHDRAWAL Discharge Diagnosis: Avascular necrosis of right hip. Infection of prosthetic right knee joint History of chronic alcohol abuse/withdrawal. Activity: Per Instructions section Weightbearing: Right partial Weightbearing Comment: Please have partial weightbearing on right leg as tolerated Non-emergency contact: Primary Care Provider Call non-emergency contact if: you have any medication questions Follow-up/Referrals: Naresh Bro MD [Primary Care Provider] - (Date & Time 03/20/2021 3:00 PM Provider Naresh Bro MD Department [facility] ) Diet: Regular Addtl Attending Provider Instructions: Please take all medications as instructed on discharge list below. It is recommended that you follow-up with your primary care physician within 1-2 weeks of hospital discharge to ensure you are still doing well. Please call if you have any questions or problems. You can reach a [facility] hospitalist on duty at [facility] 24 hours a day by calling [phone] Addtl Dental Laboratory Assistant Provider Instructions: Antibiotic: Levofloxacin 750 mg 1 tablet daily for 5 days for urine tract infection PLEASE TAKE PROBIOTICS ( OVER THE COUNTER ) WHILE TAKING ANTIBIOTICS TO PREVENT DIARRHEA /LOOSE STOOL Please follow-up with orthopedics at [facility] as scheduled for your right knee joint infection. Pending Studies at Discharge: No Stand-Alone Forms: My [facility] [address], Smoking Cessation Medications and DC Order Prescriptions: New levofloxacin 750 mg Tablet 750 mg PO Q24H 5 Days Qty: 5 RF: 0 Continued Xifaxan 550 mg tablet 550 mg PO BID RF: 0 cholecalciferol (vitamin D3) [Vitamin D3] 2,000 unit capsule 4,000 unit PO QAM RF: 0 pantoprazole [Protonix] 40 mg Tablet,Delayed Release (Dr/Ec) 40 mg PO BID RF: 0 duloxetine [Cymbalta] 60 mg Capsule,Delayed Release(Dr/Ec) 60 mg PO QAM RF: 0 cetirizine [Zyrtec] 10 mg tablet 10 mg PO QAM RF: 0 cyclobenzaprine 10 mg tablet 10 mg PO HS PRN (Reason: Muscle Spasm) RF: 0 amitriptyline 50 mg tablet 50 mg PO HS PRN (Reason: Sleep) RF: 0 hydromorphone [Dilaudid] 2 mg tablet 2 mg PO UD PRN (Reason: Pain) Qty: 4 RF: 0 multivitamin Tablet 1 tab PO QAM RF: 0 cyanocobalamin (vitamin B-12) [Vitamin B-12] 1,000 mcg Tablet 1,000 mcg PO QAM RF: 0 gabapentin 300 mg Capsule 300 mg PO BID Qty: 60 RF: 0 potassium chloride 10 mEq capsule, extended release 10 meq PO BID RF: 0 torsemide 20 mg tablet 20 mg PO DAILY RF: 0 sucralfate 1 gram tablet 1 g PO BID PRN (Reason: Stomach Upset) RF: 0 magnesium oxide 400 mg magnesium Capsule 400 mg PO DAILY RF: 0 ferrous sulfate 220 mg (44 mg iron)/5 mL elixir 220 mg PO DAILY RF: 0 levothyroxine 75 mcg Tablet 75 mcg PO DAILY RF: 0 lactulose 10 gram/15 mL solution 45 ml PO DAILY PRN (Reason: Other) RF: 0 metoprolol tartrate 25 mg tablet 25 mg PO BID Qty: 0 RF: 0 ondansetron HCl [Zofran] 4 mg tablet 4 mg PO Q6H PRN (Reason: nausea and vomiting) Qty: 6 RF: 0 Discharge Orders: Discharge Order (Routine); Ordered 03/13/21 Ordered By: Alyson Frias Admission Data Admit Date/Time: 03/12/21 02:27 Attending Provider: Alyson Frias Admit Provider: Jose Fuller Primary Care Provider: Naresh Bro Other Providers: Jose Fuller ; Alfonso Jones Sabrina M. ; [facility],Home Healthcare Other Interventions: Discharge Summary Assessment (RN) Last Done: 03/13/21 15:35
--- NOTE | 2021-03-15 13:00 | Pharmacy Report ---
ED Pharmacist Culture FollowUP - Culture Follow Up Note Date of Service: March 15, 2021 Notes:: Patients urine culture growing driscoll-sensitive E. coli. Patient was admitted and discharged with prescription for levofloxacin which should cover the E. coli
== END 2021-03-13 16:00 | disposition home health service (06) | DRG 897 ==
LOC: ED 20:43 → SUATTDRO 03-12 02:27 → 2S 03-12 02:27 → 3N 03-12 13:29

== ENCOUNTER 2021-06-10 20:34 | Inpatient (IN) ==
[2021-06-10 21:37] LABS: Basophils # (auto) 0.03 K/uL (0-0.2); Basophils % (auto) 0.4 %; Eosinophils # (auto) 0.09 K/uL (0-0.5); Eosinophils % (auto) 1.2 %; Hematocrit (blood only) 27.5 % (37-47); Hemoglobin 9.4 g/dL (12.0-16.0); Immature Granulocytes # (auto) 0.02 K/uL (0.00-0.02); Immature Granulocytes % (auto) 0.3 %; Lymphocytes # (auto) 2.66 K/uL (1.2-3.4); Lymphocytes % (auto) 35.1 %; Mean Corpuscular Hemoglobin 28.6 pg (25-34); Mean Corpuscular Hgb Conc 34.2 g/dL (32-36); Mean Corpuscular Volume 83.6 fL (80-100); Mean Platelet Volume 10.8 fL (7.4-10.4); Monocytes # (auto) 0.66 K/uL (0.11-0.59); Monocytes % (auto) 8.7 %; Neutrophils # (auto) 4.12 K/uL (1.4-6.5); Neutrophils % (auto) 54.3 %; Platelet Count 340 K/uL (130-400); RDW Coefficient of Variation 15.2 % (11.5-14.5); RDW Standard Deviation 46.5 fL (36.4-46.3); Red Blood Count 3.29 M/uL (4.2-5.4); White Blood Count 7.58 K/uL (4.8-10.8)
[2021-06-10] MEDS ORDERED: SODIUM CHLORIDE 0.9% 1000ML 1,000 ML IV ONE (21:37)
[2021-06-10 21:47] LABS: Appearance Urine Cloudy (Clear); Bacteria Urine Automated 3+ (Negative); Bilirubin Urine Negative (Negative); Blood Urine Negative (Negative); Cast Urine Automated 0 /lpf (0-5); Color Urine Yellow; Epithelial Cell Urine Auto 0-5 /lpf (0-5); Glucose Urine UA Negative (Negative); Ketones Urine Negative (Negative); Leukocyte Esterase Urine 3+ (Negative); Nitrite Urine Negative (Negative); Protein Urine Negative (Negative); RBC Urine Automated 0-4 /hpf (0-4); Specific Gravity Urine 1.007 (1.000-1.030); Urobilinogen Urine Negative (Negative); WBC Urine Automated >30 /hpf (0-5)
[2021-06-10 21:59] LABS: Albumin Level 2.3 gm/dl (3.4-5.0); BUN Creatinine Ratio 8.9 (10-20); Bilirubin Direct 0.3 mg/dl (0-0.2); Creatinine Clr Calc Pharmacy 32.7 ml/min; Est GFR (African American) 30.3 ml/min; Est GFR (Non-African American) 26.2 ml/min; Potassium 3.3 mmol/L (3.5-5.1)
[2021-06-10 22:02] LABS: Bilirubin,Total 0.5 mg/dl (0.2-1); Total Protein 5.5 gm/dl (6.4-8.2)
[2021-06-10 22:20] LABS: Amphetamines+Metham, Urine Neg (Neg); Barbiturates, Urine Neg (Neg); Benzodiazepine, Urine Neg (Neg); Cocaine, Urine Neg (Neg); MDMA (Ecstacy), Urine Neg (Neg); Methadone, Urine Neg (Neg); Opiate, Urine Pos (Neg); Phencyclidine, Urine Neg (Neg)
[2021-06-10 22:39] LABS: Base Excess VBG -6.6 mEq/L; Oxygen Saturation VBG 84.1 %; pH VBG 7.32 (7.36-7.41)
--- NOTE | 2021-06-10 23:38 | Emergency Department Note ---
History of Present Illness General Chief complaint: Confusion Stated complaint: ALTERED MENTAL STATUS/KNEE PAIN Time Seen by Provider: 06/10/21 21:25 Source: EMS and RN notes reviewed History of Present Illness Provider complaint: Altered mental status 61-year-old female with history of cirrhosis without ascites, alcohol abuse, drug abuse, alcohol withdrawal presents to the emergency department from [facility] for altered mental status.Per the [facility], they are concerned that the family members that have been visiting her have been giving h er CBD without the [facility] staff knowledge. Patient being treated for UTI at [facility]. Home Medications Medication Instructions Recorded Confirmed Type cyanocobalamin (vitamin B-12) 1,000 mcg PO QAM 08/22/18 06/10/21 History 1,000 mcg tablet (Vitamin B-12) cholecalciferol (vitamin D3) 50 4,000 unit PO QAM 10/03/18 06/10/21 History mcg (2,000 unit) capsule (Vitamin D3) rifaximin 550 mg tablet (Xifaxan) 550 mg PO BID 10/03/18 06/10/21 History pantoprazole 40 mg tablet,delayed 40 mg PO BID 07/19/19 06/10/21 History release (Protonix) cetirizine 10 mg tablet (Zyrtec) 10 mg PO QAM 04/05/20 06/10/21 History amitriptyline 50 mg tablet 50 mg PO HS 09/02/20 06/10/21 History cyclobenzaprine 10 mg tablet 10 mg PO HS 09/02/20 06/10/21 History ferrous sulfate 220 mg (44 mg 220 mg PO QAM 11/25/20 06/10/21 History iron)/5 mL oral elixir lactulose 10 gram/15 mL oral 30 ml PO BID 11/25/20 06/10/21 History solution levothyroxine 75 mcg tablet 75 mcg PO DAILYBB 11/25/20 06/10/21 History sucralfate 1 gram tablet 1 g PO BID 11/25/20 06/10/21 History metoprolol tartrate 25 mg tablet 25 mg PO BID #0 tab 11/28/20 06/10/21 Rx ondansetron HCl 4 mg tablet 4 mg PO Q6H PRN #6 tab 01/31/21 06/10/21 Rx (Zofran) Lactobacillus comb 1 cap PO TIDM 06/10/21 06/10/21 History no.5-FVM-wubkhcifmz 300 million cell-250 mg capsule (Probiotic and Acidophilus) acetaminophen 325 mg tablet 650 mg PO Q6H PRN 06/10/21 06/10/21 History (Tylenol) duloxetine 30 mg capsule,delayed 30 mg PO QAM 06/10/21 06/10/21 History release enoxaparin 40 mg/0.4 mL 40 mg SUBCUT QAM 06/10/21 06/10/21 History subcutaneous syringe folic acid 1 mg tablet 1 mg PO QAM 06/10/21 06/10/21 History gabapentin 300 mg capsule 300 mg PO TID 06/10/21 06/10/21 History hydromorphone 4 mg tablet 4 mg PO TID 06/10/21 06/10/21 History (Dilaudid) menthol 0.44 %-zinc oxide 20.6 % 1 applic TOPICAL TID 06/10/21 06/10/21 History topical ointment (Calmoseptine) nitrofurantoin 100 mg PO BID 06/10/21 06/10/21 History monohydrate/macrocrystals 100 mg capsule saliva stimulant comb. no.3 4 spray MUCOUS MEMBRANE QID 06/10/21 06/10/21 History (Biotene Moisturizing Mouth) therapeutic multivitamin 1 tab PO QAM 06/10/21 06/10/21 History (Thera-Tabs) thiamine HCl (vitamin B1) 100 mg 100 mg PO DAILY 06/10/21 06/10/21 History tablet triamcinolone acetonide 0.1 % 1 applic TOPICAL TID 06/10/21 06/10/21 History topical cream zinc sulfate 220 mg capsule 220 mg PO QAM 06/10/21 06/10/21 History Allergies Allergy/AdvReac Type Severity Reaction Status Date / Time cefaclor Allergy Intermediate Swelling Verified 03/11/21 22:25 oxycodone Allergy Intermediate HIVES Verified 03/11/21 22:25 amoxicillin Allergy Mild Nausea Verified 03/11/21 22:25 ceftriaxone [From Rocephin] Allergy Rash Verified 03/11/21 22:25 metronidazole [From Flagyl] Allergy Rash Verified 03/11/21 22:25 Past Med/Surg History Medical History REJI (acute kidney injury) Anemia, iron deficiency Ascites Cirrhosis CKD (chronic kidney disease) stage 3, GFR 30-59 ml/min Depression Gastric peptic ulcer Hypothyroidism Neuropathy of both feet On anticoagulant therapy warfarin daily Surgical History History of arthrodesis left leg History of arthroplasty of right shoulder unable to lift arm after sx History of arthroscopy of left knee x2 History of arthroscopy of right knee x7 History of cardiac cath 2011--no stents History of cholecystectomy History of colonoscopy History of esophagogastroduodenoscopy (EGD) History of gastric bypass History of open reduction and internal fixation (ORIF) procedure left tib/fib fx--hardware in place History of surgery on extremity 2016--right leg hardware in place per pt a "fusion of her leg" History of tooth extraction all teeth removed History of total right knee replacement (TKR) 2006 Family History Sister Breast cancer Mother Hypertension Diabetes Other No family history of adverse response to anesthesia Social History Smoking Status: Never smoker Second Hand Exposure: No; Hx Alcohol Use: Yes Alcohol type: wine and hard liquor Alcohol Intake Frequency: 4 or More x per/Week Alcohol Intake Frequency Comment: Pt states now drinks approx twice a week Hx Substance Use: No Preferred Language: Wallisian Communication Ability: Effective Home Health Care Respiratory Therapist Required: No Beliefs That Will Affect Care: None marital status: Single Current Living Situation: Alone Feels Safe at Home: Yes Assistive Devices: Walker Review of Systems Unobtainable due to cognitive status and Unobtainable due to reduced consciousness Physical Exam Vital Signs Vital Signs - 24 hr 06/10/21 20:44 06/10/21 21:00 06/10/21 21:10 Temperature 36.7 C Temperature Source Oral Pulse Rate 105 H 100 H Pulse Rate from SpO2 Sensor 101 H Pulse Rhythm Regular Pulse Strength Normal Respiratory Rate 18 17 20 Respiratory Effort / Characteristics Non-Labored Respiratory Depth Normal Respiratory Pattern Regular Blood Pressure 102/73 73/57 L 100/77 Blood Pressure Mean 82 62 84 Blood Pressure Position Sitting Pulse Oximetry 92 98 Oxygen Delivery Method Room Air Sepsis Recent Fever Within 48 Hours No Sepsis New/Unexplained Change in Mental Status Yes Sepsis Action Taken by Nursing No Action Required 06/10/21 21:30 06/10/21 22:01 06/10/21 22:37 Temperature Temperature Source Pulse Rate 93 H 97 H 101 H Pulse Rate from SpO2 Sensor 92 H 95 H Pulse Rhythm Pulse Strength Respiratory Rate 18 Respiratory Effort / Characteristics Respiratory Depth Respiratory Pattern Blood Pressure 87/63 L 93/57 L Blood Pressure Mean 71 69 Blood Pressure Position Pulse Oximetry 99 95 Oxygen Delivery Method Sepsis Recent Fever Within 48 Hours Sepsis New/Unexplained Change in Mental Status Sepsis Action Taken by Nursing 06/10/21 22:40 Temperature Temperature Source Pulse Rate Pulse Rate from SpO2 Sensor Pulse Rhythm Pulse Strength Respiratory Rate 16 Respiratory Effort / Characteristics Respiratory Depth Respiratory Pattern Blood Pressure Blood Pressure Mean Blood Pressure Position Pulse Oximetry Oxygen Delivery Method Sepsis Recent Fever Within 48 Hours Sepsis New/Unexplained Change in Mental Status Sepsis Action Taken by Nursing Physical Exam GENERAL: Ill-appearing. EYES: Conjunctivae and EOM are normal. Pupils are equal, round, and reactive to light. Right eye exhibits no discharge. Left eye exhibits no discharge. No scleral icterus. NECK: Normal range of motion. Neck supple. No JVD present. No spinous process tenderness present. No carotid bruit present. No rigidity. No tracheal deviation and normal range of motion present. CV: Normal rate, regular rhythm, normal heart sounds and intact distal pulses. There is no peripheral edema. Palpable radial pulses bue. PULM/CHEST: Effort normal and breath sounds normal. No respiratory distress. No stridor. She has no wheezes. She has no rales. -Chest Wall: She exhibits no tenderness. ABD: The abdomen is soft. Bowel sounds are normal. She has no distension. No mass is present. There is no tenderness. NEURO: GCS eye subscore is 4. GCS verbal subscore is 4. GCS motor subscore is 4 SKIN: Pale Course Course 2124: The patient was evaluated in room C6. A complete history and physical exam was performed Cardiac monitoring: An order was placed for continuous cardiac monitoring. The monitor shows a rate of 100 with sinus rhythm 2334: Vital signs stable. Labs do show an acute kidney injury with creatinine of 2, previous labs show the patient's creatinine is usually around 1. Urinalysis does appear infected. CBC shows a normal white blood cell count. VBG within normal limits. Ammonia undetectable. CT of the head is within normal limits. Patient will be admitted to the [facility]ist team Dr. Matute notified Administered Medications Discontinued Medications Sodium Chloride (Nss 1000ml) 1,000 mls @ 999 mls/hr IV .Q1H1M ONE Stop: 06/10/21 22:37 Last Admin: 06/10/21 22:04 Dose: 999 mls/hr Documented by: [id number] Medical Decision Making Laboratory Data Result diagrams: 06/10/21 21:00 06/10/21 21:00 Lab Results 06/10/21 06/10/21 06/10/21 Range/Units 21:00 21:00 21:05 WBC 7.58 (4.8-10.8) K/uL RBC 3.29 L (4.2-5.4) M/uL Hgb 9.4 L (12.0-16.0) g/dL Hct 27.5 L (37-47) % MCV 83.6 (80-100) fL MCH 28.6 (25-34) pg MCHC 34.2 (32-36) g/dL RDW Std Deviation 46.5 H (36.4-46.3) fL RDW Coeff of Jake 15.2 H (11.5-14.5) % Plt Count 340 (130-400) K/uL MPV 10.8 H (7.4-10.4) fL Immature Gran % (Auto) 0.3 % Neut % (Auto) 54.3 % Lymph % (Auto) 35.1 % [place] % (Auto) 8.7 % Eos % (Auto) 1.2 % Baso % (Auto) 0.4 % Neut # (Auto) 4.12 (1.4-6.5) K/uL Lymph # (Auto) 2.66 (1.2-3.4) K/uL [place] # (Auto) 0.66 H (0.11-0.59) K/uL Eos # (Auto) 0.09 (0-0.5) K/uL Baso # (Auto) 0.03 (0-0.2) K/uL Immature Gran # (Auto) 0.02 (0.00-0.02) K/uL VBG pH (7.36-7.41) VBG pCO2 (38-50) mmHg VBG pO2 mmHg VBG HCO3 mmol/L VBG O2 Saturation % VBG Base Excess mEq/L Barometric Pressure mm/Hg Sodium 131 L (136-145) mmol/L Potassium 3.3 L (3.5-5.1) mmol/L Chloride 100 (98-107) mmol/L Carbon Dioxide 20 L (21-32) mmol/L Anion Gap 11.0 (3-11) BUN 18 (7-18) mg/dl Creatinine 2.03 H (0.6-1.2) mg/dl Est Cr Clr Drug Dosing 32.7 ml/min Est GFR ( Amer) 30.3 ml/min Est GFR (Non-Af Amer) 26.2 ml/min BUN/Creatinine Ratio 8.9 L (10-20) Glucose 137 H (70-99) mg/dl Calcium 8.0 L (8.5-10.1) mg/dl Total Bilirubin 0.5 (0.2-1) mg/dl Direct Bilirubin 0.3 H (0-0.2) mg/dl AST 45 H (15-37) U/L ALT 44 (12-78) U/L Alkaline Phosphatase 237 H (45-117) U/L Ammonia (11-32) umol/L Total Protein 5.5 L (6.4-8.2) gm/dl Albumin 2.3 L (3.4-5.0) gm/dl Lipase 17 L (73-393) U/L Urine Color Urine Appearance (Clear) Urine pH (4.5-7.5) Ur Specific [place] (1.000-1.030) Urine Protein (Negative) Urine Glucose (UA) (Negative) Urine Ketones (Negative) Urine Blood (Negative) Urine Nitrite (Negative) Urine Bilirubin (Negative) Urine Urobilinogen (Negative) Ur Leukocyte Esterase (Negative) Urine WBC (Auto) (0-5) /hpf Urine RBC (Auto) (0-4) /hpf U Hyaline Cast (Auto) (0-5) /lpf U Epithel Cells (Auto) (0-5) /lpf Urine Bacteria (Auto) (Negative) Urine Opiates Screen Pos H (Neg) Ur Methadone, Qual Neg (Neg) Urine Barbiturates Neg (Neg) Ur Phencyclidine (PCP) Neg (Neg) U Amphetamin/Meth Scrn Neg (Neg) MDMA (Ecstasy) Screen Neg (Neg) U Benzodiazepines Scrn Neg (Neg) Ur Cocaine Metabolite Neg (Neg) U Marijuana (THC) Screen Neg (Neg) COVID-19 Eval Order 06/10/21 06/10/21 06/10/21 Range/Units 21:05 22:16 22:23 WBC (4.8-10.8) K/uL RBC (4.2-5.4) M/uL Hgb (12.0-16.0) g/dL Hct (37-47) % MCV (80-100) fL MCH (25-34) pg MCHC (32-36) g/dL RDW Std Deviation (36.4-46.3) fL RDW Coeff of Jake (11.5-14.5) % Plt Count (130-400) K/uL MPV (7.4-10.4) fL Immature Gran % (Auto) % Neut % (Auto) % Lymph % (Auto) % [place] % (Auto) % Eos % (Auto) % Baso % (Auto) % Neut # (Auto) (1.4-6.5) K/uL Lymph # (Auto) (1.2-3.4) K/uL [place] # (Auto) (0.11-0.59) K/uL Eos # (Auto) (0-0.5) K/uL Baso # (Auto) (0-0.2) K/uL Immature Gran # (Auto) (0.00-0.02) K/uL VBG pH (7.36-7.41) VBG pCO2 (38-50) mmHg VBG pO2 mmHg VBG HCO3 mmol/L VBG O2 Saturation % VBG Base Excess mEq/L Barometric Pressure mm/Hg Sodium (136-145) mmol/L Potassium (3.5-5.1) mmol/L Chloride (98-107) mmol/L Carbon Dioxide (21-32) mmol/L Anion Gap (3-11) BUN (7-18) mg/dl Creatinine (0.6-1.2) mg/dl Est Cr Clr Drug Dosing ml/min Est GFR ( Amer) ml/min Est GFR (Non-Af Amer) ml/min BUN/Creatinine Ratio (10-20) Glucose (70-99) mg/dl Calcium (8.5-10.1) mg/dl Total Bilirubin (0.2-1) mg/dl Direct Bilirubin (0-0.2) mg/dl AST (15-37) U/L ALT (12-78) U/L Alkaline Phosphatase (45-117) U/L Ammonia < 10.0 L (11-32) umol/L Total Protein (6.4-8.2) gm/dl Albumin (3.4-5.0) gm/dl Lipase (73-393) U/L Urine Color Yellow Urine Appearance Cloudy A (Clear) Urine pH 6.0 (4.5-7.5) Ur Specific [place] 1.007 (1.000-1.030) Urine Protein Negative (Negative) Urine Glucose (UA) Negative (Negative) Urine Ketones Negative (Negative) Urine Blood Negative (Negative) Urine Nitrite Negative (Negative) Urine Bilirubin Negative (Negative) Urine Urobilinogen Negative (Negative) Ur Leukocyte Esterase 3+ H (Negative) Urine WBC (Auto) >30 H (0-5) /hpf Urine RBC (Auto) 0-4 (0-4) /hpf U Hyaline Cast (Auto) 0 (0-5) /lpf U Epithel Cells (Auto) 0-5 (0-5) /lpf Urine Bacteria (Auto) 3+ H (Negative) Urine Opiates Screen (Neg) Ur Methadone, Qual (Neg) Urine Barbiturates (Neg) Ur Phencyclidine (PCP) (Neg) U Amphetamin/Meth Scrn (Neg) MDMA (Ecstasy) Screen (Neg) U Benzodiazepines Scrn (Neg) Ur Cocaine Metabolite (Neg) U Marijuana (THC) Screen (Neg) COVID-19 Eval Order Covid19 at [facility] 06/10/21 Range/Units 22:23 WBC (4.8-10.8) K/uL RBC (4.2-5.4) M/uL Hgb (12.0-16.0) g/dL Hct (37-47) % MCV (80-100) fL MCH (25-34) pg MCHC (32-36) g/dL RDW Std Deviation (36.4-46.3) fL RDW Coeff of Jake (11.5-14.5) % Plt Count (130-400) K/uL MPV (7.4-10.4) fL Immature Gran % (Auto) % Neut % (Auto) % Lymph % (Auto) % [place] % (Auto) % Eos % (Auto) % Baso % (Auto) % Neut # (Auto) (1.4-6.5) K/uL Lymph # (Auto) (1.2-3.4) K/uL [place] # (Auto) (0.11-0.59) K/uL Eos # (Auto) (0-0.5) K/uL Baso # (Auto) (0-0.2) K/uL Immature Gran # (Auto) (0.00-0.02) K/uL VBG pH 7.32 L (7.36-7.41) VBG pCO2 38 (38-50) mmHg VBG pO2 54 mmHg VBG HCO3 19 mmol/L VBG O2 Saturation 84.1 % VBG Base Excess -6.6 mEq/L Barometric Pressure 734.9 mm/Hg Sodium (136-145) mmol/L Potassium (3.5-5.1) mmol/L Chloride (98-107) mmol/L Carbon Dioxide (21-32) mmol/L Anion Gap (3-11) BUN (7-18) mg/dl Creatinine (0.6-1.2) mg/dl Est Cr Clr Drug Dosing ml/min Est GFR ( Amer) ml/min Est GFR (Non-Af Amer) ml/min BUN/Creatinine Ratio (10-20) Glucose (70-99) mg/dl Calcium (8.5-10.1) mg/dl Total Bilirubin (0.2-1) mg/dl Direct Bilirubin (0-0.2) mg/dl AST (15-37) U/L ALT (12-78) U/L Alkaline Phosphatase (45-117) U/L Ammonia (11-32) umol/L Total Protein (6.4-8.2) gm/dl Albumin (3.4-5.0) gm/dl Lipase (73-393) U/L Urine Color Urine Appearance (Clear) Urine pH (4.5-7.5) Ur Specific [place] (1.000-1.030) Urine Protein (Negative) Urine Glucose (UA) (Negative) Urine Ketones (Negative) Urine Blood (Negative) Urine Nitrite (Negative) Urine Bilirubin (Negative) Urine Urobilinogen (Negative) Ur Leukocyte Esterase (Negative) Urine WBC (Auto) (0-5) /hpf Urine RBC (Auto) (0-4) /hpf U Hyaline Cast (Auto) (0-5) /lpf U Epithel Cells (Auto) (0-5) /lpf Urine Bacteria (Auto) (Negative) Urine Opiates Screen (Neg) Ur Methadone, Qual (Neg) Urine Barbiturates (Neg) Ur Phencyclidine (PCP) (Neg) U Amphetamin/Meth Scrn (Neg) MDMA (Ecstasy) Screen (Neg) U Benzodiazepines Scrn (Neg) Ur Cocaine Metabolite (Neg) U Marijuana (THC) Screen (Neg) COVID-19 Eval Order Imaging Data My Impression: Chest x-ray negative. Airway clear. No pneumothorax. No consolidation. No cardiomegaly or cephalization.. No free air under the d iaphragm. No fractures of the skeletal structures. Radiologist's Impression: PreliminaryFindingsOnly See Final Report For Complete Findings CT HEAD: Mild periventricular white matter lowdensityconsistent with earlychronic small vessel disease. The brain is otherwise unremarkable. No evidence of acute large vessel infarct or intracranial hemorrhage. The paranasal sinuses and mastoid air cells are normal. No skull fracture or scalp hematoma is seen. Radiologist: Angel Randhawa MD Study ready at 22:35 and initial results transmitted at 23:05 ECG Data Indication: + altered mental status Rate (beats per minute): 98 Rhythm: + normal sinus ECG ST segments: + Normal ST segments Additional Comments: Baseline artifact due to patient movement and tremor. MDM Narrative Vital signs stable. Labs do show an acute kidney injury with creatinine of 2, previous labs show the patient's creatinine is usually around 1. Urinalysis does appear infected. CBC shows a normal white blood cell count. VBG within normal limits. Ammonia undetectable. CT of the head is within normal limits. Patient [facility] hospitalist team Dr. Matute notified Impression & Plan REJI (acute kidney injury), AMS (altered mental status) Discharge Plan Visit Data Chief Complaint: Confusion Stated Complaint: ALTERED MENTAL STATUS/KNEE PAIN Discharge Problem: REJI (acute kidney injury), AMS (altered mental status) Patient Disposition: Home - Self-Care Forms Stand Alone Forms: [facility], [facility] Emergency Department, Important Visit Information Prescriptions Prescriptions: No Action Xifaxan 550 mg tablet 550 mg PO BID RF: 0 cholecalciferol (vitamin D3) [Vitamin D3] 2,000 unit capsule 4,000 unit PO QAM RF: 0 pantoprazole [Protonix] 40 mg Tablet,Delayed Release (Dr/Ec) 40 mg PO BID RF: 0 cetirizine [Zyrtec] 10 mg tablet 10 mg PO QAM RF: 0 cyclobenzaprine 10 mg tablet 10 mg PO HS RF: 0 amitriptyline 50 mg tablet 50 mg PO HS RF: 0 cyanocobalamin (vitamin B-12) [Vitamin B-12] 1,000 mcg Tablet 1,000 mcg PO QAM RF: 0 sucralfate 1 gram tablet 1 g PO BID RF: 0 ferrous sulfate 220 mg (44 mg iron)/5 mL elixir 220 mg PO QAM RF: 0 levothyroxine 75 mcg Tablet 75 mcg PO DAILYBB RF: 0 lactulose 10 gram/15 mL solution 30 ml PO BID RF: 0 metoprolol tartrate 25 mg tablet 25 mg PO BID Qty: 0 RF: 0 ondansetron HCl [Zofran] 4 mg tablet 4 mg PO Q6H PRN (Reason: nausea and vomiting) Qty: 6 RF: 0 acetaminophen [Tylenol] 325 mg Tablet 650 mg PO Q6H PRN (Reason: FEVER >100/PAIN) RF: 0 thiamine HCl (vitamin B1) 100 mg Tablet 100 mg PO DAILY RF: 0 Thera-Tabs Tablet 1 tab PO QAM RF: 0 triamcinolone acetonide 0.1 % Cream 1 applic TOPICAL TID RF: 0 folic acid 1 mg Tablet 1 mg PO QAM RF: 0 zinc sulfate 220 mg Capsule 220 mg PO QAM RF: 0 hydromorphone [Dilaudid] 4 mg Tablet 4 mg PO TID RF: 0 enoxaparin 40 mg/0.4 mL syringe 40 mg subcut QAM RF: 0 nitrofurantoin monohyd/m-cryst 100 mg capsule 100 mg PO BID RF: 0 duloxetine 30 mg Capsule,Delayed Release(Dr/Ec) 30 mg PO QAM RF: 0 Biotene Moisturizing Mouth [place],Non-Aerosol 4 spray MUCOUS MEMBRANE QID RF: 0 Calmoseptine 0.44-20.6 % Ointment 1 applic TOPICAL TID RF: 0 Probiotic and Acidophilus 300-250 million cell-mg Capsule 1 cap PO TIDM RF: 0 gabapentin 300 mg capsule 300 mg PO TID RF: 0 Referrals Referrals: [facility] [Primary Care Provider] -
[2021-06-11] MEDS ORDERED: CONSULT PHARMACY STA (00:21)
[2021-06-11] MEDS ORDERED: VANCOMYCIN CONSULT ACTIVE PRN (01:26)
[2021-06-11] MEDS ORDERED: NITROGLYCERIN SL 0.4 MG/TAB TAB SL PRN (01:26)
[2021-06-11] MEDS ORDERED: VANCOMYCIN HCL 2,000 MG in SODIUM CHLORIDE 0.9% 500 ML IV STA (02:16)
[2021-06-11] MEDS: SODIUM CHLORIDE 0.9% 1000ML 1,000 ML IV SCH ×2 (02:33→14:29)
[2021-06-11] MEDS ORDERED: AZTREONAM CONSULT ACTIVE PRN (03:16)
[2021-06-11] MEDS: AZTREONAM 1,000 MG in DEXTROSE 5% 100 ML IV SCH ×3 (03:54→18:20)
--- NOTE | 2021-06-11 04:21 | History and Physical Report ---
DATE OF ADMISSION: 06/11/2021. CHIEF COMPLAINT: Confusion. HISTORY OF PRESENT ILLNESS: This is a 61-year-old female with past medical history significant for hypothyroidism, paroxysmal atrial fibrillation, history of SVT, history of cirrhosis of liver, history of status post gastric bypass for obesity, history of gastrogastric fistula, history of chronic kidney disease stage III, personal history of septic arthritis, infection of prosthetic knee joint, back pain, chronic pain syndrome, anemia, anastomotic ulcer status post gastric bypass, history of C. diff, depression, pseudogout, history of GI bleed, history of narcotic drug use, who was sent in from the hospital for behavioral medicine for confusion. [facility] staff are suspicious that the patient's family is giving her cannabinoid therapy and she was brought in for confusion and urine drug screen is positive for opiates, but she takes pain medications. The patient had arthroplasty, revision of the knee, and placement of articulating spacer on 04/02/2021. The patient has right knee prosthetic joint infection and a static antibiotic spacer placement in 2016. Now there is a plan to schedule for revision of right total knee arthroplasty and spacer removal on 06/11/2021, but recently saw orthopedics in [place] on 06/10/2021 morning and since her ESR was 5 and CRP was 39, it was decided not to do, and she was also active UTIs, she was supposed to follow on 07/01/2021 for right knee aspiration and discussion for spacer exchange, but tonight she was brought in because of confusion. Currently, the patient is drowsy. She only can tell her name, that she knows she is in the hospital. She thinks she has some nausea, denies any pain, but goes back to sleep and it is very difficult to get any history from the patient at this time. CT of the head, preliminary report unremarkable. Her ABG is okay. Ammonia level is okay. Urinalysis is positive for leukocyte esterase and bacteria. SARS-CoV-2 PCR is negative. Currently, hemodynamics are okay. ALLERGIES: CEFACLOR, OXYCODONE, AMOXICILLIN, ROCEPHIN, AND METRONIDAZOLE. PAST MEDICAL HISTORY: As mentioned above. PAST SURGICAL HISTORY: Right total knee arthroplasty, incision and drainage of the right leg abscess, EGDs, right ankle surgery, right shoulder surgery, hemorrhoidectomy, implantation of drug implant device, laparoscopic gastric bypass surgery, right shoulder arthroplasty, cholecystectomy, right knee joint revision replacements, total knee revision on 04/02/2021. MEDICATIONS: Currently the patient is on Tylenol 650 mg p.o. q. 6 hours p.r.n., amitriptyline 50 mg p.o. at bedtime, Zyrtec 10 mg p.o. a.m., vitamin D 4000 units p.o. a.m., vitamin B12 1000 mcg p.o. a.m., cyclobenzaprine 10 mg p.o. at bedtime, duloxetine 30 mg p.o. a.m., Lovenox 40 mg subcutaneous a.m., ferrous sulfate 220 mg p.o. a.m., folic acid 1 mg p.o. a.m., gabapentin 300 mg p.o. t.i.d., Dilaudid 4 mg p.o. t.i.d., probiotic 1 capsule p.o. t.i.d., lactulose 30 mL p.o. b.i.d., levothyroxine 75 mcg p.o. daily, Calmoseptine topical t.i.d., metoprolol tartrate 25 mg p.o. b.i.d., nitrofurantoin 100 mg p.o. b.i.d., Zofran 4 mg p.o. q. 6 hours p.r.n., Protonix 40 mg p.o. b.i.d., sucralfate 1 gram p.o. b.i.d., therapeutic multivitamin 1 tablet p.o. a.m., thiamine 100 mg p.o. a.m.,triamcinolone topical t.i.d., Xifaxan 550 mg p.o. b.i.d., zinc sulfate 220 mg p.o. a.m. FAMILY HISTORY: Significant for sister had breast cancer, cholesterol; mother has diabetes, hypertension, dementia, depression. SOCIAL HISTORY: . As per the records, no smoking. History of alcoholism. Currently, she is in a group home. No drug use. REVIEW OF SYSTEMS: Could not get review of systems as the patient is very drowsy. PHYSICAL EXAMINATION: GENERAL: The patient is drowsy, but oriented to name and place. VITAL SIGNS: Temperature 36.7, pulse 101, respiratory rate 16, blood pressure 93/57, oxygen 95% on room air. HEENT: Pupils equal, round, and reactive to light. Oral mucosa dry. NECK: No JVD, no neck masses. CARDIOVASCULAR: S1 and S2 heard. Regular rate and rhythm. No murmur, no gallop. RESPIRATORY SYSTEM: Normal AP diameter. No accessory muscle use. No wheezing, no crackles. ABDOMEN: Soft, bowel sounds present, no distention, nontender. CENTRAL NERVOUS SYSTEM: Drowsy, but oriented to name and place. Obeys simple commands. Moves extremities. EXTREMITIES: Bilateral lower extremity edema present. Right lower extremity is in brace. LABORATORY DATA: WBC 7.5, hemoglobin 9.4, hematocrit 27.5, platelets 340. Venous blood gas, pH of 7.32, pCO2 of 38, pO2 of 54, bicarbonate 19. Sodium 131, potassium 3.3, chloride 100, bicarbonate 20, BUN 18, creatinine 2.03, serum glucose 137, calcium 8, total bilirubin 0.5, direct bilirubin 0.3, AST 45, ALT 44, alkaline phosphatase 237. Ammonia less than 10. Lipase 17. Urinalysis, +3 leukocyte esterase, +3 bacteria. Urine drug screen positive for opiates. SARS-CoV-2 PCR negative. IMAGING DATA: CT of the head, preliminary report unremarkable. Chest x-ray, no acute findings. EKG: Poor quality data, but accelerated junctional rhythm with occasional PVC at a rate of 98, nonspecific ST-T abnormalities. ASSESSMENT AND PLAN: This is a 61-year-old female presents with altered mental status. 1. Altered mental status: Could be from the pain medications and could be from the infection. The patient had right knee procedure, revision of right knee and placement of articulating spacer done on 04/02/2021. There is possibility for revision of right total knee arthroplasty and spacer removal today, but because of the elevated inflammatory markers, it was postponed for followup on 07/01/2021 by ortho for knee aspiration and discussing spacer exchange. We will empirically place on antibiotics and also possible infection with urinary tract infection. We will empirically place on Azactam and vancomycin and we will get a knee x-ray. If there is any fluid there, we will consult orthopedics for any aspiration. Hold her pain medication. Abg ok. CT of the head is okay. Closely monitor in the tele floor 2. History of alcoholism, but currently she is a group home. We will monitor. 3. Urinary tract infection: Placed on antibiotics. Placed on Azactam. We will follow the cultures. 4.. Chronic pain syndrome: holding the pain medications. 5. Hypothyroidism: Continue Synthroid. 6 Alcoholic cirrhosis of the liver without ascites: Will continue Xifaxan and lactulose. Not on any diuretics. We will check ultrasound to rule out any ascites. 7.REJI Cr 2. Baseline 1. getting fluids. will follow labs in am. 8. History of hypertension: On metoprolol. 9. Depression: Duloxetine and amitriptyline. 10.. Deep venous thrombosis prophylaxis: Closely monitor in the tele floor. CODE STATUS: We will keep her FULL CODE for now. DISPOSITION: PT/OT prior to discharge. Discharge to care center group home when the patient is stable. Job ID: [id number] MTDD
[2021-06-11] MEDS: LEVOTHYROXINE SODIUM 75 MCG TABLET PO SCH ×2 (05:46→05:49)
[2021-06-11 06:04] LABS: Basophils # (auto) 0.03 K/uL (0-0.2); Basophils % (auto) 0.8 %; Eosinophils # (auto) 0.07 K/uL (0-0.5); Eosinophils % (auto) 1.8 %; Hemoglobin 7.9 g/dL (12.0-16.0); Immature Granulocytes # (auto) 0.01 K/uL (0.00-0.02); Immature Granulocytes % (auto) 0.3 %; Lymphocytes # (auto) 1.65 K/uL (1.2-3.4); Lymphocytes % (auto) 42.2 %; Mean Corpuscular Hemoglobin 28.5 pg (25-34); Mean Corpuscular Hgb Conc 34.3 g/dL (32-36); Monocytes # (auto) 0.32 K/uL (0.11-0.59); Monocytes % (auto) 8.2 %; Neutrophils # (auto) 1.83 K/uL (1.4-6.5); Neutrophils % (auto) 46.7 %; Platelet Count 216 K/uL (130-400); RDW Coefficient of Variation 15.2 % (11.5-14.5); RDW Standard Deviation 46.6 fL (36.4-46.3); Red Blood Count 2.77 M/uL (4.2-5.4); White Blood Count 3.91 K/uL (4.8-10.8)
[2021-06-11 06:29] LABS: BUN Creatinine Ratio 9.8 (10-20); Calcium 7.3 mg/dl (8.5-10.1); Creatinine Clr Calc Pharmacy 34.1 ml/min; Est GFR (African American) 36.6 ml/min; Est GFR (Non-African American) 31.5 ml/min; Magnesium 1.7 mg/dl (1.8-2.4); Potassium 3.3 mmol/L (3.5-5.1)
[2021-06-11 06:45] LABS: Target Cells 1+
--- NOTE | 2021-06-11 06:51 | Hospitalist Progress Note ---
Date of Service June 11, 2021 Assessment & Plan Admission and Anticipated Discharge Date Admission Date: June 11, 2021 Subjective Had 6 beat of SVT. replacing potassium and magnesium. Thanks Results & Data Results & Data ([facility]) Vital Signs (Past 12 Hours) Vital Signs Temp Pulse Pulse Resp BP BP Pulse Ox 06/11/21 03:35 36.9 C 96 H 16 90/58 L 99 06/11/21 01:26 36.9 C 105 H 16 104/66 98 06/11/21 00:30 88 24 102/62 06/11/21 00:00 15 106/72 98 06/10/21 23:30 91 H 15 99/64 L 100 06/10/21 23:00 91 H 16 94/68 L 96 06/10/21 22:40 16 06/10/21 22:37 101 H 06/10/21 22:01 97 H 18 93/57 L 95 06/10/21 21:30 93 H 87/63 L 99 06/10/21 21:10 36.7 C 100 H 20 100/77 98 06/10/21 21:00 105 H 17 73/57 L 06/10/21 20:44 18 102/73 92
[2021-06-11] MEDS ORDERED: MAGNESIUM SULFATE / D5W 1 GM/100 ML BAG IV ONE (07:00)
--- NOTE | 2021-06-11 07:06 | XRay Report ---
XR knee RT 1 or 2V routine HISTORY: 61 years-old Female recent procedure. infection? Acute pain and swelling of the right knee COMPARISON: Right knee radiographs 09/02/2020 TECHNIQUE: 2 views of the right knee FINDINGS: Right knee total joint arthroplasty. Demineralized appearance of the bones. The patella appears dimin utive and is positioned somewhat superiorly. There is moderate lateral and anterior soft tissue swell ing of the knee with small joint effusion. Suggested cement material projects posterior to the latera l tibial plateau. No acute fracture, dislocation or osseous erosion identified. IMPRESSION: 1. Right knee total joint arthroplasty without evidence of fracture. 2. Moderate anterolateral soft tissue swelling. ACT 112: Negative or not required by law. The above report was generated using voice recognition software. It may contain grammatical, syntax o r spelling errors. Electronically signed by: Candido Campos M.D. 06/11/2021 7:05 AM
--- NOTE | 2021-06-11 07:18 | CT Scan Report ---
CT SCAN OF THE BRAIN WITHOUT IV CONTRAST CLINICAL HISTORY: Change in mental status. COMPARISON STUDY: CT of the brain dated 09/02/2020. TECHNIQUE: Unenhanced axial CT scan of the brain is performed from the vertex to the skull base. A d ose lowering technique was utilized adhering to the principles of ALARA. CT DOSE: 614.27 mGy.cm FINDINGS: Brain parenchyma: There is mild subcortical and periventricular microangiopathic change. There is no hemorrhage, mass effect, or evidence of acute territorial ischemia by CT criteria. Gallardo-white matter differentiation is preserved. No extra-axial fluid collection is seen. Ventricles, sulci, cisterns: Normal in configuration. Intracranial vasculature: There is atherosclerotic calcification of the cavernous carotid arteries. Calvarium: Unremarkable. Sinuses and mastoids: The paranasal sinuses are clear. The mastoid air cells are well pneumatized. Orbits: The bony orbits are grossly intact. IMPRESSION: There is no hemorrhage, mass effect, or evidence of acute territorial ischemia by CT andrew perla. ACT 112: Negative or not required by law. Electronically signed by: Oscar Rainey M.D. 06/11/2021 7:17 AM
--- NOTE | 2021-06-11 07:25 | XRay Report ---
XR chest 1V portable HISTORY: 61 years-old Female ams . Acutely altered mental status COMPARISON: 01/31/2021 TECHNIQUE: AP semierect view of the chest FINDINGS: Cardiomediastinal and hilar silhouettes are within normal limits. No pneumothorax, pleural effusion, airspace consolidation or overt pulmonary edema. Bones of the chest appear grossly intact. Degenerati ve changes of the left shoulder and spine. Right shoulder arthroplasty with unchanged appearance of t he proximal right humerus. IMPRESSION: No acute process. ACT 112: Negative or not required by law. The above report was generated using voice recognition software. It may contain grammatical, syntax o r spelling errors. Electronically signed by: Candido Campos M.D. 06/11/2021 7:24 AM
[2021-06-11] MEDS: POTASSIUM CHLORIDE / WTR 10 MEQ/100 ML PLCT IV SCH ×4 (07:30→11:35)
[2021-06-11] MEDS: CHOLECALCIFEROL 1,000 UNITS 25 MCG TAB PO SCH (07:45)
[2021-06-11] MEDS: CETIRIZINE HCL 10 MG TABLET PO SCH (07:45)
[2021-06-11] MEDS: ZINC SULFATE 220 MG CAPSULE PO SCH (07:45)
[2021-06-11] MEDS: CYANOCOBALAMIN 500 MCG TABLET (VITAMIN B-12) PO SCH (07:45)
[2021-06-11] MEDS: FOLIC ACID 1 MG TAB PO SCH (07:46)
[2021-06-11] MEDS: DULoxetine HCL 30 MG CAP PO SCH (07:46)
[2021-06-11] MEDS: THIAMINE HCL 100 MG TAB PO SCH (07:46)
[2021-06-11] MEDS: GABAPENTIN 300 MG CAP PO SCH ×3 (07:46→21:03)
[2021-06-11] MEDS: FERROUS SULFATE 325 MG TAB PO SCH (07:46)
[2021-06-11] MEDS: PANTOprazole 40 MG TAB PO SCH ×2 (07:47→21:04)
[2021-06-11] MEDS: rifAXIMin 550 MG TABLET PO SCH ×2 (07:47→21:01)
[2021-06-11] MEDS: SUCRALFATE 1 GM TAB PO SCH ×2 (07:47→21:04)
[2021-06-11] MEDS: CYCLOBENZAPRINE HCL 10 MG TAB PO SCH (07:48)
[2021-06-11] MEDS: ADVANCED PROBIOTIC 1250 MG CAPSULE PO SCH ×3 (07:48→18:20)
[2021-06-11] MEDS: METOPROLOL TARTRATE 25 MG TAB PO SCH ×2 (07:48→20:20)
[2021-06-11] MEDS: CEROVITE ADV FORMULA TAB PO SCH (07:48)
[2021-06-11] MEDS: LACTULOSE SYRUP 20 GM/30 ML UDC PO SCH ×2 (07:59→21:02)
[2021-06-11] MEDS: TRIAMCINOLONE ACET 0.1% CR 15 GM TUBE TOP SCH ×3 (08:04→21:06)
[2021-06-11] MEDS: MENTHOL-ZINC OXIDE 360 APPLN/120 GM TUBE EXT SCH ×3 (08:05→21:06)
--- NOTE | 2021-06-11 08:26 | Ultrasound Report ---
ULTRASOUND ASCITES CHECK CLINICAL HISTORY: Abdominal ascites. COMPARISON STUDY: Abdominal CT dated 03/11/2021. FINDINGS: Portable real-time grayscale sonography of all 4 quadrants of the abdomen is performed to a ssess for abdominal ascites. Only trace abdominal ascites is identified. This is insufficient for par acentesis. Survey images of the liver show cirrhotic morphology. IMPRESSION: Trace abdominopelvic ascites. Electronically signed by: Oscar Rainey M.D. 06/11/2021 8:25 AM
[2021-06-11] MEDS ORDERED: NON-FORMULARY MEDICATION (Saliva Stimulant Comb. No.3 [Biotene Moisturizing Mouth] Spray,N MUCOUS MEMBRANE SCH (09:00)
[2021-06-11] MEDS ORDERED: ENOXAPARIN INJ 40 MG/0.4 ML SYR SQ SCH (09:00)
[2021-06-11] MEDS: DAPTOmycin 325 MG in SYRINGE 0 ML IV SCH (09:53)
[2021-06-11] MEDS: MAGNESIUM OXIDE 400 MG TAB PO SCH ×2 (09:53→21:03)
--- NOTE | 2021-06-11 10:17 | Hospitalist Progress Note ---
Date of Service June 11, 2021 Assessment & Plan (1) Encephalopathy: Plan: ASSESSMENT AND PLAN: This is a 61-year-old female presents with altered mental status. Metabolic Encephalopathy, Multifactorial from UTI, Acute on CKD 3, Analgesics -- seems to have improved markedly today oriented x 3 -- UTI ff up urine culture continue Aztreonam IV -- Acute on CKD 3 likely pre-renal crea improving from 2 to 1.7 (baseline 1.0) continue IV NSS -- Analgesics per H&P, SNF suspicious regarding family members bringing in additional pain medications/narcotics to patient per patient, she is receiving excessive Dilaudid at SNF Urine Drug Screen: narcotic profile pending hold narcotics for now monitor Right knee s/p antibiotic spacer 04/02/2021 -- follows with Brandin Dill as per last ff up visit Brandin Serrano 06/10/2021, treat UTI first then ff up 07/01 for possible aspiration, revision -- [facility] consulted today does not feel patient has infected R knee at this time -- monitor closely BL Leg edema -- Doppler US: negative but cannot fully assess RLE due to brace per Ortho, brace may be removed during US- no bending -- repeat Doppler US of RLE tomorrow History of alcoholism, but currently she is a residential Chronic pain syndrome: holding the pain medications. Hypothyroidism: Continue Synthroid. Alcoholic cirrhosis of the liver without ascites: Will continue Xifaxan and lactulose. Not on any diuretics. -- no ascited on US History of hypertension: On metoprolol. Depression: Duloxetine and amitriptyline. Deep venous thrombosis prophylaxis: Heparin SC Disposition anticipate return to SNF when medically stable Admission and Anticipated Discharge Date Admission Date: June 11, 2021 Subjective ff up for encephalopathy, etc seen resting in bed, comfortable oriented x 3, answers all questions appropriately appears tired but pleasant denies headache, dizziness, chest pain, dyspnea, abdominal pain, nausea/vomiting, problems with urination/BM denies knee pain no other symptoms Review of Systems Review of Systems: all noted and negative except for above Physical Exam Physical Exam: General- oriented x 3, not in distress, speaks in sentences with no effort or accessory muscle use Head- atraumatic Eyes- PERRL, EOMI, anicteric ENT- oropharynx clear Neck- supple, no JVD, no adenopathy, no thyromegaly; carotids +2/2, no bruits appreciated Lungs- clear to auscultation bilaterally, no rales/wheezes Heart- normal rate, regular rhythm; no murmur, no gallop, no rub appreciated Abdomen- normal bowel sounds, nondistended, soft, nontender, no masses or hepatosplenomegaly Extremities- (+) grade 1 lower leg edema, no calf tenderness; peripheral pulses intact right knee: brace in place, no edema/warmth/tenderness Neuro- alert, oriented x 3; CN 2-12 grossly intact; motor 5/5 bilaterally;sensation 100% on all extremities; no other gross focal neurologic deficits Skin- warm & dry Results & Data Results & Data ([facility]) Vital Signs (Past 12 Hours) Vital Signs Temp Pulse Pulse Resp BP BP Pulse Ox 06/11/21 07:28 36.5 C 88 16 97/64 L 98 06/11/21 03:35 36.9 C 96 H 16 90/58 L 99 06/11/21 01:26 36.9 C 105 H 16 104/66 98 06/11/21 00:30 88 24 102/62 06/11/21 00:00 15 106/72 98 06/10/21 23:30 91 H 15 99/64 L 100 06/10/21 23:00 91 H 16 94/68 L 96 06/10/21 22:40 16 06/10/21 22:37 101 H all noted and reviewed including below
--- NOTE | 2021-06-11 10:18 | Orthopedic Consultation ---
Date of Consultation June 11, 2021 Assessment & Plan (1) Infection of prosthetic right knee joint: Status post infection right TKA with initial implantation of static antibiotic spacer with then removal and reimplantation of an articulated spacer. At this time, the knee does not appear infected. She is nontender and shows no signs of acute infection. Her white count was low normal. CRP and sed rate were ordered for this morning but may be elevated due to recent UTIs. We will be able to compare these results with the [facility] Overall, patient should maintain in her hinged knee brace locked in extension. She is unsure of her weightbearing status. Recommend follow up with her physician in [place] at [facility] for plans for possible re- implantation of TKA at the end of the month. Addendum: Latest CRP/ESR today; 1.12/01 History of Present Illness Reason for Consultation: History of right TKA infection; static antibiotic spacer implant and then removal with implantation of antibiotic spacer articulated on 04/02/2021 Attending Physician: Roddy Andre MD History of Present Illness Patient is a 61-year-old female known to our practice through seeing her in consult at the end of 2019 and in March 2021. Patient had a history of right TKA infection with removal of hardware and implantation of static antibiotic cement spacer. This was done at [facility]. Plans were at some point to revisit the right knee and possibly place a new total knee prosthesis versus another spacer. She then underwent removal of the static antibiotic spacer and an articulated antibiotic spacer was then placed on 04/02/2021. The plan was to schedule for revision of right total knee arthroplasty and spacer removal on 06/11/2021, but recently saw orthopedics in [place] on 06/10/2021 morning and since her ESR was 5 and CRP was 39, it was decided not to do, and she was also active UTIs, she was supposed to follow on 07/01/2021 for right knee aspiration and discussion for spacer exchange Patient was admitted to the hospital last night for change in mental status. We have been asked to see her to look at her right knee. Allergies Allergy/AdvReac Type Severity Reaction Status Date / Time cefaclor Allergy Intermediate Swelling Verified 03/11/21 22:25 oxycodone Allergy Intermediate HIVES Verified 03/11/21 22:25 amoxicillin Allergy Mild Nausea Verified 03/11/21 22:25 ceftriaxone [From Rocephin] Allergy Rash Verified 03/11/21 22:25 metronidazole [From Flagyl] Allergy Rash Verified 03/11/21 22:25 Home Medications Medication Instructions Recorded Confirmed Type cyanocobalamin (vitamin B-12) 1,000 mcg PO QAM 08/22/18 06/10/21 History 1,000 mcg tablet (Vitamin B-12) cholecalciferol (vitamin D3) 50 4,000 unit PO QAM 10/03/18 06/10/21 History mcg (2,000 unit) capsule (Vitamin D3) rifaximin 550 mg tablet (Xifaxan) 550 mg PO BID 10/03/18 06/10/21 History pantoprazole 40 mg tablet,delayed 40 mg PO BID 07/19/19 06/10/21 History release (Protonix) cetirizine 10 mg tablet (Zyrtec) 10 mg PO QAM 04/05/20 06/10/21 History amitriptyline 50 mg tablet 50 mg PO HS 09/02/20 06/10/21 History cyclobenzaprine 10 mg tablet 10 mg PO HS 09/02/20 06/10/21 History ferrous sulfate 220 mg (44 mg 220 mg PO QAM 11/25/20 06/10/21 History iron)/5 mL oral elixir lactulose 10 gram/15 mL oral 30 ml PO BID 11/25/20 06/10/21 History solution levothyroxine 75 mcg tablet 75 mcg PO DAILYBB 11/25/20 06/10/21 History sucralfate 1 gram tablet 1 g PO BID 11/25/20 06/10/21 History metoprolol tartrate 25 mg tablet 25 mg PO BID #0 tab 11/28/20 06/10/21 Rx ondansetron HCl 4 mg tablet 4 mg PO Q6H PRN #6 tab 01/31/21 06/10/21 Rx (Zofran) Lactobacillus comb 1 cap PO TIDM 06/10/21 06/10/21 History no.0-[id number] 300 million cell-250 mg capsule (Probiotic and Acidophilus) acetaminophen 325 mg tablet 650 mg PO Q6H PRN 06/10/21 06/10/21 History (Tylenol) duloxetine 30 mg capsule,delayed 30 mg PO QAM 06/10/21 06/10/21 History release enoxaparin 40 mg/0.4 mL 40 mg SUBCUT QAM 06/10/21 06/10/21 History subcutaneous syringe folic acid 1 mg tablet 1 mg PO QAM 06/10/21 06/10/21 History gabapentin 300 mg capsule 300 mg PO TID 06/10/21 06/10/21 History hydromorphone 4 mg tablet 4 mg PO TID 06/10/21 06/10/21 History (Dilaudid) menthol 0.44 %-zinc oxide 20.6 % 1 applic TOPICAL TID 06/10/21 06/10/21 History topical ointment (Calmoseptine) nitrofurantoin 100 mg PO BID 06/10/21 06/10/21 History monohydrate/macrocrystals 100 mg capsule saliva stimulant comb. no.3 4 spray MUCOUS MEMBRANE QID 06/10/21 06/10/21 History (Biotene Moisturizing Mouth) therapeutic multivitamin 1 tab PO QAM 06/10/21 06/10/21 History (Thera-Tabs) thiamine HCl (vitamin B1) 100 mg 100 mg PO DAILY 06/10/21 06/10/21 History tablet triamcinolone acetonide 0.1 % 1 applic TOPICAL TID 06/10/21 06/10/21 History topical cream zinc sulfate 220 mg capsule 220 mg PO QAM 06/10/21 06/10/21 History Patient History Medical History REJI (acute kidney injury) Anemia, iron deficiency Ascites Cirrhosis CKD (chronic kidney disease) stage 3, GFR 30-59 ml/min Depression Gastric peptic ulcer Hypothyroidism Neuropathy of both feet On anticoagulant therapy warfarin daily Surgical History History of arthrodesis left leg History of arthroplasty of right shoulder unable to lift arm after sx History of arthroscopy of left knee x2 History of arthroscopy of right knee x7 History of cardiac cath 2011--no stents History of cholecystectomy History of colonoscopy History of esophagogastroduodenoscopy (EGD) History of gastric bypass History of open reduction and internal fixation (ORIF) procedure left tib/fib fx--hardware in place History of surgery on extremity 2017--right leg hardware in place per pt a "fusion of her leg" History of tooth extraction all teeth removed History of total right knee replacement (TKR) 2006 Family History Sister Breast cancer Mother Hypertension Diabetes Other No family history of adverse response to anesthesia Social History Smoking Status: Never smoker Second Hand Exposure: No; Do You Dip or Chew Tobacco: No; Tobacco Cessation Education Requested by Patient: No Hx Alcohol Use: No Hx Substance Use: Yes Preferred Language: Mauritanian Communication Ability: Effective Material Scheduler Required: No Beliefs That Will Affect Care: None marital status: Single Current Living Situation: Senior Living Other Information That Helps Us Care for You: No Feels Safe at Home: No Is there a partner from a previous relationship who is making you feel unsafe now?: No Any Concerns about Your Family Situation: No Would You Like to Speak to Someone About Your Situation: No Safety Concerns: Feels Safe At This Time Assistive Devices: Brace/Splint/Immobilizer Review of Systems Review of Systems: All systems reviewed & are unremarkable except as noted in HPI & below Physical Exam Physical Exam: Upon entering the patient's room, she is sleeping but easily awoken. She is alert and carries on a good conversation and she appears oriented to person and place. She discusses her history of her recent removal of her static antibiotic spacer with reimplantation of her articulated spacer. She states that she is been wearing a hinged knee brace locked in extension with no range of motion. This is what her surgeon wishes at this time and she has not been bending the knee. She denies pain in the knee at this time. She states that the knee has healed fairly well and she has not been having problems with it. On examination of her right lower extremity she is in a hinged knee brace which is partially opened to examine her knee. She has a well-healed incision over the center line of the knee from her recent surgery in April. There are no open areas. No drainage. No erythema noted. The knee does not feel overtly hot compared to the left. Swelling consistent with revision surgery. She is nontender on palpation over the knee itself. No attempts were made to do range of motion secondary to the wishes of her surgeon keeping it in extension. Calves are soft and nontender. She has some mild swelling of her right ankle. She is moving her right ankle and toes. Sensation appears intact. Hinged knee brace was secured. Results & Data ([facility]) Vital Signs (Past 12 Hours) Vital Signs Temp Pulse Pulse Resp BP BP Pulse Ox 06/11/21 07:28 36.5 C 88 16 97/64 L 98 06/11/21 03:35 36.9 C 96 H 16 90/58 L 99 06/11/21 01:26 36.9 C 105 H 16 104/66 98 06/11/21 00:30 88 24 102/62 06/11/21 00:00 15 106/72 98 06/10/21 23:30 91 H 15 99/64 L 100 06/10/21 23:00 91 H 16 94/68 L 96 06/10/21 22:40 16 06/10/21 22:37 101 H
[2021-06-11] MEDS: ACETAMINOPHEN 325 MG TAB PO PRN (14:26)
--- NOTE | 2021-06-11 14:35 | Ultrasound Report ---
BILATERAL LOWER EXTREMITY VENOUS DOPPLER HISTORY: Bilateral leg edema, r/o dvt COMPARISON STUDY: None. FINDINGS: There is normal compressibility, flow, and augmentation within the visualized bilateral low er extremity deep venous systems. Of note, the distal right superficial femoral vein, right popliteal vein, and right calf vessels were not visualized on this examination due to the patient's right leg brace. This was unable to be removed for the examination. IMPRESSION: No DVT within the visualized right or left lower extremity as described above. ACT 112: Negative or not required by law. Electronically signed by: Sánchez Sinclair M.D. 06/11/2021 2:34 PM
--- NOTE | 2021-06-11 15:21 | Electrocardiogram Report ---
Test Reason : Blood Pressure : / mmHG Vent. Rate : 098 BPM Atrial Rate : 092 BPM P-R Int : 000 ms QRS Dur : 084 ms QT Int : 342 ms P-R-T Axes : 000 022 075 degrees QTc Int : 436 ms Poor data quality, interpretation may be adversely affected Accelerated Junctional rhythm vs sinus rhythm Nonspecific ST and T wave abnormality Abnormal ECG Confirmed by Gordy Hansen ([id number]) on 06/11/2021 3:21:08 PM Referred By: [facility] Confirmed By:Sorin Hansen
--- NOTE | 2021-06-11 15:30 | Electrocardiogram Report ---
Test Reason : Blood Pressure : / mmHG Vent. Rate : 082 BPM Atrial Rate : 082 BPM P-R Int : 174 ms QRS Dur : 094 ms QT Int : 366 ms P-R-T Axes : 063 043 007 degrees QTc Int : 427 ms Normal sinus rhythm Low voltage QRS Borderline ECG When compared with ECG of 10-JUN-2021 20:48, (unconfirmed) Sinus rhythm has replaced Junctional rhythm Nonspecific T wave abnormality no longer evident in Anterolateral leads Confirmed by Gordy Hansen ([id number]) on 06/11/2021 3:29:57 PM Referred By: [facility] Confirmed By:Sorin Hansen
[2021-06-11] MEDS ORDERED: SODIUM CHLORIDE 0.9% 1000ML 500 ML IV ONE ×2 (16:37→18:45)
[2021-06-11] MEDS: AMITRIPTYLINE HCL 50 MG TAB PO SCH (21:04)
[2021-06-12] MEDS ORDERED: VANCOMYCIN HCL 1,250 MG in SODIUM CHLORIDE 0.9% 250 ML IV SCH
[2021-06-12] MEDS: SODIUM CHLORIDE 0.9% 1000ML 1,000 ML IV SCH ×3 (00:44→21:10)
[2021-06-12] MEDS: AZTREONAM 1,000 MG in DEXTROSE 5% 100 ML IV SCH ×3 (02:19→18:10)
[2021-06-12] MEDS: LEVOTHYROXINE SODIUM 75 MCG TABLET PO SCH (06:22)
[2021-06-12] MEDS: MAGNESIUM OXIDE 400 MG TAB PO SCH ×2 (09:10→20:54)
[2021-06-12] MEDS: CEROVITE ADV FORMULA TAB PO SCH (09:10)
[2021-06-12] MEDS: FERROUS SULFATE 325 MG TAB PO SCH (09:10)
[2021-06-12] MEDS: CETIRIZINE HCL 10 MG TABLET PO SCH (09:10)
[2021-06-12] MEDS: ZINC SULFATE 220 MG CAPSULE PO SCH (09:10)
[2021-06-12] MEDS: CHOLECALCIFEROL 1,000 UNITS 25 MCG TAB PO SCH (09:11)
[2021-06-12] MEDS: GABAPENTIN 300 MG CAP PO SCH ×3 (09:11→20:54)
[2021-06-12] MEDS: FOLIC ACID 1 MG TAB PO SCH (09:11)
[2021-06-12] MEDS: CYANOCOBALAMIN 500 MCG TABLET (VITAMIN B-12) PO SCH (09:12)
[2021-06-12] MEDS: SUCRALFATE 1 GM TAB PO SCH ×2 (09:12→20:54)
[2021-06-12] MEDS: THIAMINE HCL 100 MG TAB PO SCH (09:12)
[2021-06-12] MEDS: PANTOprazole 40 MG TAB PO SCH ×2 (09:12→20:54)
[2021-06-12] MEDS: HEPARIN SOD 5,000 UNIT/0.5 ML VIAL SQ SCH ×3 (09:13→22:07)
[2021-06-12] MEDS: DULoxetine HCL 30 MG CAP PO SCH (09:14)
[2021-06-12] MEDS: ADVANCED PROBIOTIC 1250 MG CAPSULE PO SCH ×3 (09:14→16:56)
[2021-06-12] MEDS: rifAXIMin 550 MG TABLET PO SCH ×2 (09:14→20:54)
[2021-06-12] MEDS: LACTULOSE SYRUP 20 GM/30 ML UDC PO SCH ×2 (09:15→22:05)
[2021-06-12] MEDS: METOPROLOL TARTRATE 25 MG TAB PO SCH ×2 (09:56→20:54)
[2021-06-12] MEDS: DAPTOmycin 325 MG in SYRINGE 0 ML IV SCH (10:58)
[2021-06-12] MEDS: MENTHOL-ZINC OXIDE 360 APPLN/120 GM TUBE EXT SCH ×3 (10:59→20:56)
[2021-06-12] MEDS: TRIAMCINOLONE ACET 0.1% CR 15 GM TUBE TOP SCH ×3 (10:59→20:56)
[2021-06-12] MEDS: ACETAMINOPHEN 325 MG TAB PO PRN (12:56)
--- NOTE | 2021-06-12 16:53 | Ultrasound Report ---
ULTRASOUND RIGHT LOWER EXTREMITY VENOUS CLINICAL HISTORY: Right leg pain. COMPARISON STUDY: Bilateral lower extremity venous ultrasound dated 06/11/2021. TECHNIQUE: Real-time, grayscale, and color Doppler sonography of the deep veins of the right lower ex tremity was performed from the inguinal crease to the calf. Compression and augmentation were utilize d. FINDINGS: There is no sonographic evidence of deep venous thrombosis identified in the right lower ex tremity. The common femoral and superficial femoral veins are patent and normally compressible. The g reater saphenous vein and the profunda femoris vein at the junction with the common femoral vein are clear. The visualized calf veins are patent. The popliteal vein could not be assessed due to patient positioning. IMPRESSION: There is no sonographic evidence of deep venous thrombosis identified in the right lower extremity noting nonvisualization of the popliteal vein. ACT 112: Negative or not required by law. Electronically signed by: Oscar Rainey M.D. 06/12/2021 4:52 PM
[2021-06-12] MEDS: AMITRIPTYLINE HCL 50 MG TAB PO SCH (20:54)
[2021-06-12] MEDS: CYCLOBENZAPRINE HCL 10 MG TAB PO SCH (20:54)
--- NOTE | 2021-06-12 21:05 | Hospitalist Progress Note ---
Date of Service June 12, 2021 Assessment & Plan (1) Encephalopathy: (2) Bacteremia: Plan: 61-year-old female with PMH of hypothyroidism, PAF, SVT, cirrhosis, obesity status post gastric bypass, gastrogastric fistula, CKD stage III, septic arthritis, infection of prosthetic knee joint, back pain, chronic pain syndrome, anemia, anastomotic ulcer status post gastric bypass, C. difficile, depression, pseudogout, GI bleed, and narcotic drug use was sent to the ED 06/10 from [facility] for concerns of confusion. longterm staff were suspicious that the patient's family is giving her cannabinoid therapy [urine drug screen positive for opiates at presentation -she also takes prescribed pain medications]. #. Acute encephalopathy #. Bacteremia #. UTI Admitting CXR, head CT revealed no acute process. Multifactorial, likely from UTI versus acute on chronic kidney disease versus analgesics Patient has improved markedly, AOx3 since yesterday Patient had been afebrile in the hospital, WBC 3.91K, follow-up with CBC to shukri Blood culture positive for gram-positive cocci in clusters [preliminary], follow-up with the final result. ID consulted, awaiting recommendation. Urine culture positive for gram-negative bacilli Continue with aztreonam and daptomycin. #. Acute on chronic kidney disease Admitting creatinine 2.03, improving, baseline 1.0 Continue with IV fluids, follow-up BMP tomorrow #. Anemia Hemoglobin at presentation 9.4, today 7.9. MCV 83 We will send iron profile and vitamin levels, FOBT Follow-up with results #. Analgesics/chronic pain syndrome per H&P, SNF suspicious regarding family members bringing in additional pain medications/narcotics to patient per patient, she is receiving excessive Dilaudid at [facility] Urine Drug Screen: Positive for opiates. Patient takes prescribed pain medications. hold narcotics for now monitor #. Right knee s/p antibiotic spacer 04/02/2021 -- follows with Brandin Dill as per last ff up visit Brandin Serrano 06/10/2021, treat UTI first then ff up 07/01 for possible aspiration, revision -- [facility] consulted today does not feel patient has infected R knee at this time -- monitor closely #. BL Leg edema -- Doppler US: negative #. Alcoholic cirrhosis of the liver without ascites: Will continue Xifaxan and lactulose. Not on any diuretics. -- no ascited on US #. Continue home medication for depression and hypertension. Deep venous thrombosis prophylaxis: Heparin SC Disposition anticipate return to SNF when medically stable. PT OT consulted for recommendation. Patient was different usp. Admission and Anticipated Discharge Date Admission Date: June 11, 2021 Subjective Patient was lying in bed, NAD, on room air, denies fever/chills/sore throat/chest pain/palpitations/belly pain/cough/headache/dizziness/acute changes in her bowel habits. She states her pain over the recently operated right knee is under control. Physical Exam Physical Exam: GENERAL: Alert and oriented x3. NAD, on RA. HEENT: No pallor, no icterus. Pupils equal, round and reactive to light. Oral mucosa moist. NECK: No JVD, no neck masses. HEART: S1 and S2 heard. Regular rate and rhythm. No murmur, no gallop. RESPIRATORY SYSTEM: Normal AP diameter. No accessory muscle use. No wheezing, no crackles. ABDOMEN: Soft, bowel sounds present, nontender, no distention. CENTRAL NERVOUS SYSTEM: Alert and oriented x3. No facial droop. Speech is clear. Obeys simple commands. Moves extremities. EXTREMITIES: 2+ edema, no erythema seen. Right knee with healed surgical scar and brace support. Results & Data Results & Data ([facility]) Vital Signs (Past 12 Hours) Vital Signs Temp Pulse Pulse Pulse Resp BP BP 06/12/21 19:38 36.8 C 84 18 106/70 06/12/21 15:54 36.6 C 77 17 96/63 L 06/12/21 15:12 82 06/12/21 09:55 108 H 101/72 Pulse Ox 06/12/21 19:38 96 06/12/21 15:54 98 06/12/21 15:12 06/12/21 09:55
[2021-06-12] MEDS: ONDANSETRON 4 MG OD TAB PO PRN (21:07)
[2021-06-13] MEDS: AZTREONAM 1,000 MG in DEXTROSE 5% 100 ML IV SCH ×3 (04:07→19:29)
[2021-06-13] MEDS: HEPARIN SOD 5,000 UNIT/0.5 ML VIAL SQ SCH ×3 (05:35→22:02)
[2021-06-13] MEDS: LEVOTHYROXINE SODIUM 75 MCG TABLET PO SCH (05:36)
[2021-06-13] MEDS: SODIUM CHLORIDE 0.9% 1000ML 1,000 ML IV SCH (07:12)
[2021-06-13 07:21] LABS: Hematocrit (blood only) 26.1 % (37-47); Hemoglobin 8.9 g/dL (12.0-16.0); Mean Corpuscular Hemoglobin 28.3 pg (25-34); Mean Corpuscular Hgb Conc 34.1 g/dL (32-36); Mean Corpuscular Volume 83.1 fL (80-100); Mean Platelet Volume 10.2 fL (7.4-10.4); Platelet Count 247 K/uL (130-400); RDW Coefficient of Variation 15.7 % (11.5-14.5); RDW Standard Deviation 47.2 fL (36.4-46.3); Red Blood Count 3.14 M/uL (4.2-5.4); White Blood Count 4.29 K/uL (4.8-10.8)
[2021-06-13 07:51] LABS: Codeine Urine NEGATIVE ng/mL (<50); Hydrocodone Urine NEGATIVE ng/mL (<50); Hydromor Urine 7680 ng/mL (<50); Morphine Urine NEGATIVE ng/mL (<50); Norhydrocodone Conf Ur NEGATIVE ng/mL (<50); Noroxycodone Urine NEGATIVE ng/mL (<50); Oxycodone Urine NEGATIVE ng/mL (<50); Oxymorph Urine NEGATIVE ng/mL (<50)
[2021-06-13] MEDS: SUCRALFATE 1 GM TAB PO SCH ×2 (08:01→21:56)
[2021-06-13] MEDS: rifAXIMin 550 MG TABLET PO SCH ×2 (08:01→21:55)
[2021-06-13] MEDS: ZINC SULFATE 220 MG CAPSULE PO SCH (08:01)
[2021-06-13] MEDS: TRIAMCINOLONE ACET 0.1% CR 15 GM TUBE TOP SCH ×3 (08:01→21:58)
[2021-06-13] MEDS: THIAMINE HCL 100 MG TAB PO SCH (08:01)
[2021-06-13 08:02] LABS: BUN Creatinine Ratio 9.6 (10-20); Calcium 7.4 mg/dl (8.5-10.1); Est GFR (African American) 34.9 ml/min; Est GFR (Non-African American) 30.1 ml/min; Ferritin 413.8 ng/ml (8-388); Magnesium 1.8 mg/dl (1.8-2.4); Phosphorus 2.8 mg/dl (2.5-4.9); Potassium 3.8 mmol/L (3.5-5.1)
[2021-06-13] MEDS: PANTOprazole 40 MG TAB PO SCH ×2 (08:02→21:56)
[2021-06-13] MEDS: CEROVITE ADV FORMULA TAB PO SCH (08:02)
[2021-06-13] MEDS: METOPROLOL TARTRATE 25 MG TAB PO SCH ×2 (08:02→21:55)
[2021-06-13] MEDS: MAGNESIUM OXIDE 400 MG TAB PO SCH ×2 (08:02→21:57)
[2021-06-13] MEDS: GABAPENTIN 300 MG CAP PO SCH ×3 (08:02→21:56)
[2021-06-13] MEDS: DULoxetine HCL 30 MG CAP PO SCH (08:03)
[2021-06-13] MEDS: FOLIC ACID 1 MG TAB PO SCH (08:03)
[2021-06-13] MEDS: FERROUS SULFATE 325 MG TAB PO SCH (08:03)
[2021-06-13] MEDS: CHOLECALCIFEROL 1,000 UNITS 25 MCG TAB PO SCH (08:03)
[2021-06-13] MEDS: CETIRIZINE HCL 10 MG TABLET PO SCH (08:04)
[2021-06-13] MEDS: CYANOCOBALAMIN 500 MCG TABLET (VITAMIN B-12) PO SCH (08:04)
[2021-06-13] MEDS: ADVANCED PROBIOTIC 1250 MG CAPSULE PO SCH ×3 (08:04→17:27)
[2021-06-13] MEDS: LACTULOSE SYRUP 20 GM/30 ML UDC PO SCH ×2 (08:05→21:58)
[2021-06-13 08:25] LABS: Folate (Folic Acid) > 20.00 ng/ml (>5.38); Vitamin B12 > 2000 pg/ml (193-986)
[2021-06-13] MEDS: MENTHOL-ZINC OXIDE 360 APPLN/120 GM TUBE EXT SCH ×3 (10:13→21:57)
[2021-06-13] MEDS: DAPTOmycin 325 MG in SYRINGE 0 ML IV SCH (11:00)
[2021-06-13] MEDS ORDERED: Nursing to Pharmacy Communication SCH (16:30)
--- NOTE | 2021-06-13 18:33 | Hospitalist Progress Note ---
Date of Service June 13, 2021 Assessment & Plan (1) Encephalopathy: (2) Bacteremia: Plan: 61-year-old female with PMH of hypothyroidism, PAF, SVT, cirrhosis, obesity status post gastric bypass, gastrogastric fistula, CKD stage III, septic arthritis, infection of prosthetic knee joint, back pain, chronic pain syndrome, anemia, anastomotic ulcer status post gastric bypass, C. difficile, depression, pseudogout, GI bleed, and narcotic drug use was sent to the ED 06/10 from [facility] for concerns of confusion. prison staff were suspicious that the patient's family is giving her cannabinoid therapy [urine drug screen positive for opiates at presentation -she also takes prescribed pain medications]. #. Acute encephalopathy #. Bacteremia #. UTI Admitting CXR, head CT revealed no acute process. Multifactorial, likely from UTI versus acute on chronic kidney disease versus analgesics Patient has improved markedly, AOx3 since 1 day after arrival Patient had been afebrile in the hospital Blood culture positive for gram-positive cocci in clusters [preliminary], follow-up with the final result. ID consulted, awaiting recommendation. Urine culture positive for gram-negative bacilli Continue with aztreonam and daptomycin. #. Acute on chronic kidney disease Admitting creatinine 2.03, improving, baseline 1.0 Continue with IV fluids, follow-up BMP tomorrow #. Anemia Hemoglobin at presentation 9.4, today 8.9. MCV 80s Ferritin level elevated with elevated transferrin saturation, low iron and low TIBC, FOBT negative. Vitamin B12 and folate not deficient Follow-up with results #. Analgesics/chronic pain syndrome per H&P, SNF suspicious regarding family members bringing in additional pain medications/narcotics to patient per patient, she is receiving excessive Dilaudid at SNF Urine Drug Screen: Positive for opiates. Patient takes prescribed pain medications. hold narcotics for now monitor #. Right knee s/p antibiotic spacer 04/02/2021 -- follows with Brandin Dill as per last ff up visit Brandin Serrano 06/10/2021, treat UTI first then ff up 07/01 for possible aspiration, revision -- [facility] consulted today does not feel patient has infected R knee at this time -- monitor closely #. BL Leg edema -- Doppler US: negative #. Alcoholic cirrhosis of the liver without ascites: Will continue Xifaxan and lactulose. Not on any diuretics. -- no ascited on US #. Continue home medication for depression and hypertension. Deep venous thrombosis prophylaxis: Heparin SC Disposition anticipate return to SNF when medically stable. PT OT consulted for recommendation. Patient wants different fpc. Admission and Anticipated Discharge Date Admission Date: June 11, 2021 Subjective Patient was lying in bed, NAD, on room air, denies fever/chills/sore throat/chest pain/palpitations/belly pain/cough/headache/dizziness/acute changes in her bowel habits. She states her pain over the recently operated right knee is under control. Physical Exam Physical Exam: GENERAL: Alert and oriented x3. NAD, on RA. HEENT: No pallor, no icterus. Pupils equal, round and reactive to light. Oral mucosa moist. NECK: No JVD, no neck masses. HEART: S1 and S2 heard. Regular rate and rhythm. No murmur, no gallop. RESPIRATORY SYSTEM: Normal AP diameter. No accessory muscle use. No wheezing, no crackles. ABDOMEN: Soft, bowel sounds present, nontender, no distention. CENTRAL NERVOUS SYSTEM: Alert and oriented x3. No facial droop. Speech is clear. Obeys simple commands. Moves extremities. EXTREMITIES: 2+ edema, no erythema seen. Right knee with healed surgical scar and brace support. Results & Data Results & Data ([facility]) Vital Signs (Past 12 Hours) Vital Signs Temp Pulse Pulse Pulse Resp BP Pulse Ox 06/13/21 17:08 72 06/13/21 15:31 36.3 C L 77 17 103/74 95 06/13/21 08:00 72 06/13/21 07:05 36.5 C 74 19 100/67 94
[2021-06-13] MEDS: CYCLOBENZAPRINE HCL 10 MG TAB PO SCH (21:56)
[2021-06-13] MEDS: AMITRIPTYLINE HCL 50 MG TAB PO SCH (21:56)
[2021-06-14] MEDS: AZTREONAM 1,000 MG in DEXTROSE 5% 100 ML IV SCH ×3 (02:57→17:26)
[2021-06-14] MEDS ORDERED: SODIUM CHLORIDE 0.9% 500 ML IV ONE (04:43)
[2021-06-14] MEDS: LEVOTHYROXINE SODIUM 75 MCG TABLET PO SCH (05:41)
[2021-06-14] MEDS: HEPARIN SOD 5,000 UNIT/0.5 ML VIAL SQ SCH ×3 (05:42→20:40)
[2021-06-14 06:27] LABS: Hematocrit (blood only) 24.5 % (37-47); Hemoglobin 8.4 g/dL (12.0-16.0); Mean Corpuscular Hemoglobin 28.5 pg (25-34); Mean Corpuscular Hgb Conc 34.3 g/dL (32-36); Mean Corpuscular Volume 83.1 fL (80-100); Platelet Count 249 K/uL (130-400); RDW Coefficient of Variation 15.8 % (11.5-14.5); RDW Standard Deviation 48.2 fL (36.4-46.3); Red Blood Count 2.95 M/uL (4.2-5.4); White Blood Count 4.64 K/uL (4.8-10.8)
[2021-06-14 06:51] LABS: BUN Creatinine Ratio 9.8 (10-20); Calcium 7.4 mg/dl (8.5-10.1); Creatinine Clr Calc Pharmacy 35.2 ml/min; Est GFR (African American) 34.6 ml/min; Est GFR (Non-African American) 29.9 ml/min; Magnesium 2.2 mg/dl (1.8-2.4); Potassium 3.7 mmol/L (3.5-5.1)
[2021-06-14] MEDS ORDERED: LACTATED RINGER'S 1,000 ML IV ONE (06:56)
[2021-06-14] MEDS: MAGNESIUM OXIDE 400 MG TAB PO SCH ×2 (09:06→20:39)
[2021-06-14] MEDS: CYANOCOBALAMIN 500 MCG TABLET (VITAMIN B-12) PO SCH (09:07)
[2021-06-14] MEDS: LACTULOSE SYRUP 20 GM/30 ML UDC PO SCH ×2 (09:07→20:39)
[2021-06-14] MEDS: rifAXIMin 550 MG TABLET PO SCH ×2 (09:07→20:40)
[2021-06-14] MEDS: FERROUS SULFATE 325 MG TAB PO SCH (09:07)
[2021-06-14] MEDS: THIAMINE HCL 100 MG TAB PO SCH (09:07)
[2021-06-14] MEDS: ZINC SULFATE 220 MG CAPSULE PO SCH (09:07)
[2021-06-14] MEDS: FOLIC ACID 1 MG TAB PO SCH (09:07)
[2021-06-14] MEDS: SUCRALFATE 1 GM TAB PO SCH ×2 (09:07→20:40)
[2021-06-14] MEDS: CEROVITE ADV FORMULA TAB PO SCH (09:07)
[2021-06-14] MEDS: ADVANCED PROBIOTIC 1250 MG CAPSULE PO SCH ×3 (09:08→17:26)
[2021-06-14] MEDS: MENTHOL-ZINC OXIDE 360 APPLN/120 GM TUBE EXT SCH ×3 (09:08→20:43)
[2021-06-14] MEDS: DULoxetine HCL 30 MG CAP PO SCH (09:08)
[2021-06-14] MEDS: GABAPENTIN 300 MG CAP PO SCH ×3 (09:08→20:40)
[2021-06-14] MEDS: PANTOprazole 40 MG TAB PO SCH ×2 (09:08→20:39)
[2021-06-14] MEDS: CETIRIZINE HCL 10 MG TABLET PO SCH (09:08)
[2021-06-14] MEDS: CHOLECALCIFEROL 1,000 UNITS 25 MCG TAB PO SCH (09:08)
[2021-06-14] MEDS: TRIAMCINOLONE ACET 0.1% CR 15 GM TUBE TOP SCH ×3 (09:09→20:43)
[2021-06-14] MEDS: METOPROLOL TARTRATE 25 MG TAB PO SCH ×2 (09:09→20:39)
[2021-06-14] MEDS: DAPTOmycin 325 MG in SYRINGE 0 ML IV SCH (09:10)
[2021-06-14] MEDS: ONDANSETRON 4 MG OD TAB PO PRN (10:15)
--- NOTE | 2021-06-14 10:42 | Consultation Report ---
NEPHROLOGY CONSULTATION REASON FOR CONSULTATION: Acute renal failure. HISTORY OF PRESENT ILLNESS: The patient is a 61-year-old female with known history of liver cirrhosi s, admitted 3 days ago when she presented with confusion to the Emergency Department. She has since been found to have right knee prosthetic joint infection, urinary tract infection, as well as bactere erick. She has acute renal failure. Creatinine was 2.03 on admission and is only slightly better in 3 days despite getting IV fluid. She is still getting IV fluid. Her blood pressure is somewhat low a s expected for liver cirrhosis. She is starting to get edematous. She is on IV antibiotics includin g daptomycin and aztreonam. It does not appear she was taking any NSAIDs or any diuretics at home. She is making urine, although it is hard to quantify. The patient denies having any pain at this brandy e. Denies any nausea, vomiting, chest pain, shortness of breath. She does have some lower extremity edema. Allergy list was reviewed in detail. PAST MEDICAL AND SURGICAL HISTORY: Includes paroxysmal atrial fibrillation, history of SVT, history of liver cirrhosis, status post gastric bypass for obesity, history of gastrogastric fistula, history of chronic kidney disease stage III, but more recent blood work was almost normal, history of septic arthritis with infected prosthetic knee joint, chronic pain syndrome, history of C. diff, depression , pseudogout, history of narcotic drug abuse, right total knee arthroplasty, incision and drainage of the right leg abscess, ankle surgery, hemorrhoidectomy, implantation of drug implant device. MEDICATIONS: At home includes Tylenol, amitriptyline, Zyrtec, vitamin, and the full list of medicati on was reviewed and is as per HPI. FAMILY HISTORY: Negative for renal disease or dialysis. SOCIAL HISTORY: She is . History of alcoholism as well as drug abuse in the past. She is c urrently in penitentiary. REVIEW OF SYSTEMS: As detailed in HPI. Unless stated otherwise, 12 systems reviewed and negative. PHYSICAL EXAMINATION: GENERAL: A middle-aged white female, who appears chronically ill and has the appearance of a patient with liver cirrhosis. Blood pressure 94/64, pulse rate 89, temperature 35.9, 96% on room air. HEENT: Mucous membrane is moist. NECK: Supple. CHEST: Bilateral decreased breath sounds. CARDIOVASCULAR: S1, S2, regular. ABDOMEN: Soft, nontender, obese with some ascites. EXTREMITIES: Show edema bilaterally with some chronic venous stasis changes. There is edema in the upper thigh as well as in the sacral region. LABORATORY TESTS: Sodium 132, potassium 3.7, BUN 18, creatinine 1.82, which is slightly better than 2.03 on admission, hemoglobin is 8.4, platelet count is 249. She has gram-positive cocci in blood cu lture, Klebsiella in her urine. IMAGING DATA: Abdominal ultrasound did show some ascites. She does have liver cirrhosis. The venou s duplex was done and was negative. ASSESSMENT AND PLAN: A 61-year-old female with known history of liver cirrhosis and multiple other m edical problems, admitted for confusion. She was found to have bacteremia as well as urinary tract i nfection. Her creatinine was higher than baseline at 2.03 on admission and despite getting IV fluids for 3 days, it has not improved. Acute renal failure: This is not dehydration and there is no need to give more IV fluid. She is alr savannah getting edematous. Acute renal failure is to be expected in a liver cirrhosis patient with bact eremia and urinary tract infection. Fortunately, it is not getting worse on a daily basis. In fact, it is slightly better than on admission. Given slight improvement, this is not a case of hepatorena l syndrome. There might be some toxic ATN component. No definitive treatment needed for acute renal failure. RECOMMENDATIONS: 1. Stop IV fluid. 2. Avoid giving NSAIDs, diuretics, or nephrotoxic antibiotics at this time. 3. She is starting to get edematous, so eventually might need diuretics, but for now hold. 4. Continue to treat bacteremia and urinary tract infection. 5. Renal function will gradually improve. Given her liver cirrhosis, renal recovery is never prompt . Job ID: [id number]
--- NOTE | 2021-06-14 19:10 | Hospitalist Progress Note ---
Date of Service June 14, 2021 Assessment & Plan (1) Encephalopathy: (2) Bacteremia: Plan: 61-year-old female with PMH of hypothyroidism, PAF, SVT, cirrhosis, obesity status post gastric bypass, gastrogastric fistula, CKD stage III, septic arthritis, infection of prosthetic knee joint, back pain, chronic pain syndrome, anemia, anastomotic ulcer status post gastric bypass, C. difficile, depression, pseudogout, GI bleed, and narcotic drug use was sent to the ED 06/10 from [facility] for concerns of confusion. jail staff were suspicious that the patient's family is giving her cannabinoid therapy [urine drug screen positive for opiates at presentation -she also takes prescribed pain medications]. #. Acute encephalopathy #. Bacteremia #. UTI Admitting CXR, head CT revealed no acute process. Multifactorial, likely from UTI versus acute on chronic kidney disease versus analgesics Patient has improved markedly, AOx3 since 1 day after arrival Patient had been afebrile in the hospital Blood culture positive for gram-positive cocci in clusters [preliminary], follow-up with the final result. Likely contaminant per ID. ID on board: recommended stopping dapto, will continue aztreonam for 1 more day to complete 5 day course. Urine culture positive for gram-negative bacilli #. Acute on chronic kidney disease Admitting creatinine 2.03, not making progress Nephro on board: stop IVF, avoid NSAID and diuretics, might need eventually diuretics though. Expects slow recovery. follow-up BMP tomorrow #. Anemia Hemoglobin at presentation 9.4, stable. MCV 80s Ferritin level elevated with elevated transferrin saturation, low iron and low TIBC, FOBT negative. Vitamin B12 and folate not deficient #. Analgesics/chronic pain syndrome per H&P, SNF suspicious regarding family members bringing in additional pain medications/narcotics to patient per patient, she is receiving excessive Dilaudid at SNF Urine Drug Screen: Positive for opiates. Patient takes prescribed pain medications. hold narcotics for now monitor Avoid NSAIDs #. Right knee s/p antibiotic spacer 04/02/2021 -- follows with Brandin Dill as per last ff up visit Brandin Serrano 06/10/2021, treat UTI first then ff up 07/01 for possible aspiration, revision -- [facility] does not feel patient has infected R knee at this time -- monitor closely #. BL Leg edema -- Doppler US: negative #. Alcoholic cirrhosis of the liver without ascites: Will continue Xifaxan and lactulose. Not on any diuretics. -- no ascited on US #. Continue home medication for depression and hypertension. Deep venous thrombosis prophylaxis: Heparin SC Disposition anticipate return to SNF when medically stable. PT OT consulted for recommendation. Patient wants different custodial - will have to go to same NH per CM, then she can change NH from there. Admission and Anticipated Discharge Date Admission Date: June 11, 2021 Subjective Patient was lying in bed, NAD, on room air, denies fever/chills/sore throat/chest pain/palpitations/belly pain/cough/headache/dizziness/acute changes in her bowel habits. She states her pain over the recently operated right knee is under control. Last BM yesterday. Physical Exam Physical Exam: GENERAL: Alert and oriented x3. NAD, on RA. HEENT: No pallor, no icterus. Pupils equal, round and reactive to light. Oral mucosa moist. NECK: No JVD, no neck masses. HEART: S1 and S2 heard. Regular rate and rhythm. No murmur, no gallop. RESPIRATORY SYSTEM: Normal AP diameter. No accessory muscle use. No wheezing, no crackles. ABDOMEN: Soft, bowel sounds present, nontender, no distention. CENTRAL NERVOUS SYSTEM: Alert and oriented x3. No facial droop. Speech is clear. Obeys simple commands. Moves extremities. EXTREMITIES: 2+ edema, no erythema seen. Right knee with healed surgical scar a nd brace support. Results & Data Results & Data ([facility]) Vital Signs (Past 12 Hours) Vital Signs Temp Pulse Pulse Pulse Resp BP BP 06/14/21 16:21 36.6 C 103 H 20 96/68 L 06/14/21 15:41 109 H 06/14/21 12:00 36.6 C 92 H 16 93/69 L 95/74 L 06/14/21 08:28 35.9 C L 89 18 94/64 L 06/14/21 07:29 78 Pulse Ox 06/14/21 16:21 95 06/14/21 15:41 06/14/21 12:00 96 06/14/21 08:28 96 06/14/21 07:29
[2021-06-14] MEDS: CYCLOBENZAPRINE HCL 10 MG TAB PO SCH (20:39)
[2021-06-14] MEDS: AMITRIPTYLINE HCL 50 MG TAB PO SCH (20:40)
[2021-06-15 02:01] LABS: Appearance Urine Turbid (Clear); Bilirubin Urine Negative (Negative); Blood Urine 2+ (Negative); Color Urine Dark Yellow; Epithelial Cell Urine Auto >30 /lpf (0-5); Glucose Urine UA Negative (Negative); Ketones Urine Trace (Negative); Leukocyte Esterase Urine 3+ (Negative); Nitrite Urine Negative (Negative); Protein Urine Trace (Negative); RBC Urine Automated 0-4 /hpf (0-4); Specific Gravity Urine 1.015 (1.000-1.030); Urobilinogen Urine Negative (Negative); WBC Urine Automated >30 /hpf (0-5); pH Urine 5.5 (4.5-7.5)
[2021-06-15 02:18] LABS: Bacteria Urine Automated 3+ (Negative)
[2021-06-15] MEDS: LEVOTHYROXINE SODIUM 75 MCG TABLET PO SCH (05:35)
[2021-06-15] MEDS: HEPARIN SOD 5,000 UNIT/0.5 ML VIAL SQ SCH ×3 (05:35→22:04)
--- NOTE | 2021-06-15 07:52 | Ultrasound Report ---
LEFT LOWER EXTREMITY VENOUS DOPPLER HISTORY: Left leg swelling. COMPARISON STUDY: None. FINDINGS: There is normal compressibility, flow, and augmentation within the left lower extremity juliette p venous system. IMPRESSION: No DVT within the left lower extremity. ACT 112: Negative or not required by law. Electronically signed by: Sánchez Sinclair M.D. 06/15/2021 7:51 AM
[2021-06-15 07:53] LABS: Hematocrit (blood only) 27.3 % (37-47); Hemoglobin 9.4 g/dL (12.0-16.0); Mean Corpuscular Hemoglobin 28.7 pg (25-34); Mean Corpuscular Hgb Conc 34.4 g/dL (32-36); Mean Corpuscular Volume 83.5 fL (80-100); Mean Platelet Volume 9.9 fL (7.4-10.4); Platelet Count 261 K/uL (130-400); RDW Standard Deviation 48.5 fL (36.4-46.3); Red Blood Count 3.27 M/uL (4.2-5.4); White Blood Count 7.09 K/uL (4.8-10.8)
[2021-06-15] MEDS: LACTULOSE SYRUP 20 GM/30 ML UDC PO SCH ×2 (08:16→22:04)
[2021-06-15] MEDS: TRIAMCINOLONE ACET 0.1% CR 15 GM TUBE TOP SCH ×3 (08:16→22:11)
[2021-06-15] MEDS: MENTHOL-ZINC OXIDE 360 APPLN/120 GM TUBE EXT SCH ×3 (08:16→22:09)
[2021-06-15] MEDS: METOPROLOL TARTRATE 25 MG TAB PO SCH ×2 (08:17→22:09)
[2021-06-15] MEDS: PANTOprazole 40 MG TAB PO SCH ×2 (08:17→22:04)
[2021-06-15] MEDS: SUCRALFATE 1 GM TAB PO SCH ×2 (08:17→22:04)
[2021-06-15] MEDS: THIAMINE HCL 100 MG TAB PO SCH (08:17)
[2021-06-15] MEDS: ZINC SULFATE 220 MG CAPSULE PO SCH (08:17)
[2021-06-15] MEDS: FERROUS SULFATE 325 MG TAB PO SCH (08:17)
[2021-06-15] MEDS: GABAPENTIN 300 MG CAP PO SCH ×3 (08:17→22:04)
[2021-06-15] MEDS: rifAXIMin 550 MG TABLET PO SCH ×2 (08:17→22:05)
[2021-06-15] MEDS: CEROVITE ADV FORMULA TAB PO SCH (08:17)
[2021-06-15] MEDS: CHOLECALCIFEROL 1,000 UNITS 25 MCG TAB PO SCH (08:18)
[2021-06-15] MEDS: FOLIC ACID 1 MG TAB PO SCH (08:18)
[2021-06-15] MEDS: CETIRIZINE HCL 10 MG TABLET PO SCH (08:18)
[2021-06-15] MEDS: DULoxetine HCL 30 MG CAP PO SCH (08:18)
[2021-06-15] MEDS: ADVANCED PROBIOTIC 1250 MG CAPSULE PO SCH ×3 (08:18→17:11)
[2021-06-15] MEDS: MAGNESIUM OXIDE 400 MG TAB PO SCH ×2 (08:18→22:08)
[2021-06-15] MEDS: CYANOCOBALAMIN 500 MCG TABLET (VITAMIN B-12) PO SCH (08:18)
[2021-06-15 08:21] LABS: BUN Creatinine Ratio 8.9 (10-20); Calcium 8.4 mg/dl (8.5-10.1); Creatinine Clr Calc Pharmacy 28.4 ml/min; Est GFR (African American) 26.8 ml/min; Est GFR (Non-African American) 23.1 ml/min; Magnesium 2.5 mg/dl (1.8-2.4); Potassium 3.8 mmol/L (3.5-5.1)
[2021-06-15] MEDS: NAFCILLIN SODIUM 1,000 MG in DEXTROSE 5% 100 ML IV SCH ×4 (10:19→22:13)
--- NOTE | 2021-06-15 11:35 | Nephrology Progress Note ---
Date of Service June 15, 2021 Assessment & Plan (1) REJI (acute kidney injury): Plan: pt baseline creatinine is 0.9-1.1 as recently as earlier this summer. she does h ave hx of recurrent REJI. She presented with creatinine of 2, trended down to 1.8, increased to 2.2. Also with UTI on presentation. Positive blood cultures at this point one of 4 w/ staph; possible contaminant- however on nafcillin now. alexander placed for better I/O tracking. she has completed 5 days aztreonam for presumptive UTI on presentation. Systolic blood pressure has been in the 90s this admission, lower than previous admissions when it ran consistently in the 1 teens, 120s or higher. >monitor for sepsis given hypotension, reji, bacteremia -cont strict I/O -for now cont abtx and no lasix > marked edema; no ascites in abdomen; hypoalbuminemia noted; cont to monitor >>>recommend renal u/s if creatinine continues to worsen Admission and Anticipated Discharge Date Admission Date: June 11, 2021 Subjective for LUL on thursday; on nafcillin d/t staph bacteremia. c/o sob and R>L edema/pain LE Review of Systems Review of Systems: All systems reviewed & are unremarkable except as noted in Subjective Physical Exam Constitutional: well developed, + cachectic and + frail appearing Eyes: EOM intact bilaterally ENMT: Ears: no external ear abnormality Nose: no external nose abnormality Mouth: + dry oral mucous membranes and + edentulous Neck: no nuchal rigidity Respiratory: normal respiratory effort Auscultation: + diminished lung sounds Cardiovascular: Rate/Rhythm: regular rate and regular rhythm Extremities: + edema (2-3+ BL proximal/dependent; none distal) Gastrointestinal (Abdomen): Inspection/Auscultation: normal bowel sounds Percussion/Palpation: abdomen soft and + abdomen firm; abdomen nontender, no guarding and no ascites Musculoskeletal: Extremities: + limited ROM of extremities (R knee in brace/hardware) and + abnormal strength (generalized weakness) Skin: no rashes, warm and dry Neurologic: blanco, fluent speech, no tremor Genitourinary: alexander w/ scant brown urine Results & Data ([facility]) Vital Signs (Past 12 Hours) Vital Signs Temp Pulse Resp BP Pulse Ox 06/15/21 08:08 36.7 C 90 20 95/64 L 96 08/14/21 04:17 36.8 C 86 18 93/65 L 96 06/14/21 23:28 36.5 C 79 18 96/66 L 96 Laboratory Results 06/15/21 07:33 06/15/21 07:33
--- NOTE | 2021-06-15 13:32 | Cardiology Consultation ---
Date of Consultation June 15, 2021 Assessment & Plan (1) Bacteremia: (2) Encephalopathy: (3) Acute on chronic renal failure: (4) AMS (altered mental status): (5) Alcoholic cirrhosis of liver without ascites: (6) Infection of prosthetic right knee joint: (7) Avascular necrosis of bone of right hip: (8) SVT (supraventricular tachycardia): (9) History of alcohol abuse: (10) Ambulatory dysfunction: (11) Anemia: (12) Cirrhosis: (13) PAF (paroxysmal atrial fibrillation): I agree that a transesophageal echocardiogram is indicated to rule out possible endocarditis given ongoing bacteremia. Unfortunately, the patient is overdue for an EGD for her history of cirrhosis and varices. I believe the most prudent course of action would be to have the EGD performed first to evaluate her varices before LUL is performed. I would be happy to perform the LUL simultaneously with the EGD and recommend discussing with GI to facilitate. History of Present Illness Reason for Consultation: Need for LUL given bacteremia Requesting Physician: Dr. Clayton Attending Physician: Candis Clayton MD History of Present Illness It was my pleasure to see Ms. Ascencio in cardiac consultation today June 15, 2021. She is a very pleasant 61-year-old woman who was admitted to [facility] on 06/11/2021 from outpatient rehab with reports of change in mental status. She was found to be bacteremic. She had recent total knee replacement spacer placed and was seen by orthopedics who does not believe the joint is infected. Her urinalysis is suggestive of UTI but without symptoms. Transthoracic echocardiogram was ordered to evaluate for endocarditis, however, patient's body habitus not amenable to imaging. Currently she states that she feels well at rest and denies any cardiac complaints of chest pain, shortness of breath, palpitations, lightheadedness, dizziness or syncope. Allergies Allergy/AdvReac Type Severity Reaction Status Date / Time cefaclor Allergy Intermediate Swelling Verified 03/11/21 22:25 oxycodone Allergy Intermediate HIVES Verified 03/11/21 22:25 amoxicillin Allergy Mild Nausea Verified 03/11/21 22:25 ceftriaxone [From Rocephin] Allergy Rash Verified 03/11/21 22:25 metronidazole [From Flagyl] Allergy Rash Verified 03/11/21 22:25 Home Medications Medication Instructions Recorded Confirmed Type cyanocobalamin (vitamin B-12) 1,000 mcg PO QAM 08/22/18 06/10/21 History 1,000 mcg tablet (Vitamin B-12) cholecalciferol (vitamin D3) 50 4,000 unit PO QAM 10/03/18 06/10/21 History mcg (2,000 unit) capsule (Vitamin D3) rifaximin 550 mg tablet (Xifaxan) 550 mg PO BID 10/03/18 06/10/21 History pantoprazole 40 mg tablet,delayed 40 mg PO BID 07/19/19 06/10/21 History release (Protonix) cetirizine 10 mg tablet (Zyrtec) 10 mg PO QAM 04/05/20 06/10/21 History amitriptyline 50 mg tablet 50 mg PO HS 09/02/20 06/10/21 History cyclobenzaprine 10 mg tablet 10 mg PO HS 09/02/20 06/10/21 History ferrous sulfate 220 mg (44 mg 220 mg PO QAM 11/25/20 06/10/21 History iron)/5 mL oral elixir lactulose 10 gram/15 mL oral 30 ml PO BID 11/25/20 06/10/21 History solution levothyroxine 75 mcg tablet 75 mcg PO DAILYBB 11/25/20 06/10/21 History sucralfate 1 gram tablet 1 g PO BID 11/25/20 06/10/21 History metoprolol tartrate 25 mg tablet 25 mg PO BID #0 tab 11/28/20 06/10/21 Rx ondansetron HCl 4 mg tablet 4 mg PO Q6H PRN #6 tab 01/31/21 06/10/21 Rx (Zofran) Lactobacillus comb 1 cap PO TIDM 06/10/21 06/10/21 History no.2-[id number] 300 million cell-250 mg capsule (Probiotic and Acidophilus) acetaminophen 325 mg tablet 650 mg PO Q6H PRN 06/10/21 06/10/21 History (Tylenol) duloxetine 30 mg capsule,delayed 30 mg PO QAM 06/10/21 06/10/21 History release enoxaparin 40 mg/0.4 mL 40 mg SUBCUT QAM 06/10/21 06/10/21 History subcutaneous syringe folic acid 1 mg tablet 1 mg PO QAM 06/10/21 06/10/21 History gabapentin 300 mg capsule 300 mg PO TID 06/10/21 06/10/21 History hydromorphone 4 mg tablet 4 mg PO TID 06/10/21 06/10/21 History (Dilaudid) menthol 0.44 %-zinc oxide 20.6 % 1 applic TOPICAL TID 06/10/21 06/10/21 History topical ointment (Calmoseptine) nitrofurantoin 100 mg PO BID 06/10/21 06/10/21 History monohydrate/macrocrystals 100 mg capsule saliva stimulant comb. no.3 4 spray MUCOUS MEMBRANE QID 06/10/21 06/10/21 History (Biotene Moisturizing Mouth) therapeutic multivitamin 1 tab PO QAM 06/10/21 06/10/21 History (Thera-Tabs) thiamine HCl (vitamin B1) 100 mg 100 mg PO DAILY 06/10/21 06/10/21 History tablet triamcinolone acetonide 0.1 % 1 applic TOPICAL TID 06/10/21 06/10/21 History topical cream zinc sulfate 220 mg capsule 220 mg PO QAM 06/10/21 06/10/21 History Patient History Medical History REJI (acute kidney injury) Anemia, iron deficiency Ascites Cirrhosis Depression Gastric peptic ulcer Hypothyroidism Neuropathy of both feet On anticoagulant therapy warfarin daily Surgical History History of arthrodesis left leg History of arthroplasty of right shoulder unable to lift arm after sx History of arthroscopy of left knee x2 History of arthroscopy of right knee x7 History of cardiac cath 2011--no stents History of cholecystectomy History of colonoscopy History of esophagogastroduodenoscopy (EGD) History of gastric bypass History of open reduction and internal fixation (ORIF) procedure left tib/fib fx--hardware in place History of surgery on extremity 2017--right leg hardware in place per pt a "fusion of her leg" History of tooth extraction all teeth removed History of total right knee replacement (TKR) 2006 Family History Sister Breast cancer Mother Hypertension Diabetes Other No family history of adverse response to anesthesia Social History Smoking Status: Never smoker Second Hand Exposure: No; Do You Dip or Chew Tobacco: No; Tobacco Cessation Education Requested by Patient: No Hx Alcohol Use: No Hx Substance Use: Yes Preferred Language: Tuvaluan Communication Ability: Effective Leaf Size Picker Required: No Beliefs That Will Affect Care: None marital status: Single Current Living Situation: Intermediate Other Information That Helps Us Care for You: No Feels Safe at Home: No Is there a partner from a previous relationship who is making you feel unsafe now?: No Any Concerns about Your Family Situation: No Would You Like to Speak to Someone About Your Situation: No Safety Concerns: Feels Safe At This Time Assistive Devices: Brace/Splint/Immobilizer Review of Systems Review of Systems: All systems reviewed & are unremarkable except as noted in HPI & below Physical Exam Physical Exam: General: Awake, alert and oriented x 3. No acute distress. HEENT: Normocephalic, atraumatic. Pupils equal, round and reactive to light and accommodation. Extraocular muscles are intact. Anicteric sclera. Moist mucous membranes. Neck: No JVD. No bruit. Cardiovascular: Regular. Positive S-4. Normal S-1 and S-2. No S-3. 3/6 holosystolic ejection murmur, 5th intercostal space, mid-clavicular line without radiation. No rubs. Pulmonary: Clear to auscultation bilaterally. No rales, rhonchi, or wheezing. Abdomen: Bowel sounds x 4, soft. No rebound, guarding or tenderness. No organomegaly. Extremities: No clubbing, cyanosis or edema. +2 pedal pulses bilaterally. Skin: Warm and dry. Results & Data ([facility]) Vital Signs (Past 12 Hours) Vital Signs Temp Pulse Resp BP BP Pulse Ox 06/15/21 12:03 36.4 C L 93 H 20 89/62 L 93 06/15/21 08:08 36.7 C 90 20 95/64 L 96 06/15/21 04:17 36.8 C 86 18 93/65 L 96 (1) AMS (altered mental status) Altered mental status type: unspecified Qualified Code(s): R41.82 - Altered mental status, unspecified (2) Cirrhosis Ascites presence: without ascites Hepatic cirrhosis type: alcoholic cirrhosis Qualified Code(s): K70.30 - Alcoholic cirrhosis of liver without ascites
--- NOTE | 2021-06-15 13:56 | Hospitalist Progress Note ---
Date of Service June 15, 2021 Assessment & Plan (1) Encephalopathy: (2) Bacteremia: Plan: 61-year-old female with PMH of hypothyroidism, PAF, SVT, cirrhosis, obesity status post gastric bypass, gastrogastric fistula, CKD stage III, septic arthritis, infection of prosthetic knee joint, back pain, chronic pain syndrome, anemia, anastomotic ulcer status post gastric bypass, C. difficile, depression, pseudogout, GI bleed, and narcotic drug use was sent to the ED 06/10 from [facility] for concerns of confusion. [facility] staff were suspicious that the patient's family is giving her cannabinoid therapy [urine drug screen positive for opiates at presentation -she also takes prescribed pain medications]. #. Acute encephalopathy #. Bacteremia -Staph aureus #. UTI Admitting CXR, head CT revealed no acute process. Multifactorial, likely from UTI versus acute on chronic kidney disease versus analgesics Resolved, AOx3 since 1 day after arrival Patient had been afebrile in the hospital. 06/10 urine culture positive for E. coli and Klebsiella oxytoca. 06/11 blood culture positive for Staph aureus, follow-up with the final result. 06/15 repeat blood culture and urine culture sent. ID on board: Patient received daptomycin and aztreonam until 06/14 since admission when it was stopped due to blood culture being nonconclusive. Patient started on nafcillin 06/15. Patient do have renal and hepatic compromise, and hence keep an eye for interstitial nephritis/bone marrow suppression/neurotoxicity/elevated LFTs/cholestasis. In such event either decrease the dose by 50% or changed to daptomycin. Until before identification of GPC, it was deemed as contaminant and hence Dapto was stopped per ID. Identified as a staph aureus on 06/15 a.m.contacted ID again via [employer] textrecommended nafcillin or daptomycin for 14 days for now [she has history of reaction to cephalosporin, has tolerated certain cephalosporins in the past per pharmacyhence, trial of cephalosporin with close monitoring if needed could be a possibility] but if there is ongoing bacteremia/test positive for infective endocarditis we might need to consider ID reevaluation of the patient and make recommendation. Cardiology on board: Contacted cardiology 06/15 for LUL which is possibly scheduled on Thursday but requires EGD for varices [history of cirrhosis, overdue for scope] prior to that hence consulted GI as well. Underwent TTE 06/15 but had limited p.o. per platform power technician. #. Acute on chronic kidney disease Admitting creatinine 2.03, not making progress Nephro on board: Medina placed for better I/O tracking, monitor for sepsis given hypotension/bacteremia, continue with strict I's/O, no Lasix for now, possible renal ultrasound if creatinine continues to worsen. stop IVF, avoid NSAID and diuretics, might need eventually diuretics though follow-up BMP tomorrow #. Anemia Hemoglobin at presentation 9.4, stable. MCV 80s Ferritin level elevated with elevated transferrin saturation, low iron and low TIBC, FOBT negative. Vitamin B12 and folate not deficient #. Analgesics/chronic pain syndrome per H&P, SNF suspicious regarding family members bringing in additional pain medications/narcotics to patient per patient, she is receiving excessive Dilaudid at SNF Urine Drug Screen: Positive for opiates. Patient takes prescribed pain medications. hold narcotics for now monitor Avoid NSAIDs #. Right knee s/p antibiotic spacer 04/02/2021 -- follows with Brandin Dill as per last ff up visit Brandin Serrano 06/10/2021, treat UTI first then ff up 07/01 for possible aspiration, revision -- [facility] Ortho does not feel patient has infected R knee at this time -- monitor closely #. BL Leg edema -- Doppler US: negative #. Alcoholic cirrhosis of the liver without ascites: Will continue Xifaxan and lactulose. Not on any diuretics. -- no ascited on US #. Continue home medication for depression and hypertension. Deep venous thrombosis prophylaxis: Heparin SC Disposition anticipate return to SNF when medically stable. PT OT consulted for recommendation. Patient wants different half-way - will have to go to same NH per CM, then she can change NH from there. Admission and Anticipated Discharge Date Admission Date: June 11, 2021 Subjective Patient was lying in bed, NAD, on room air, denies fever/chills/sore throat/chest pain/palpitations/belly pain/cough/headache/dizziness/acute changes in her bladder habits. She states her pain over the recently operated right knee is under control. Last BM yesterday which was more like diarrhealcontinue to follow. Patient states of feeling malaise and lethargic. Patient updated on her new finding of bacteremia positive for staph aureus and the plan of care. Physical Exam Physical Exam: GENERAL: Alert and oriented x3. NAD, on RA. HEENT: No pallor, no icterus. Pupils equal, round and reactive to light. Oral mucosa moist. NECK: No JVD, no neck masses. HEART: S1 and S2 heard. Regular rate and rhythm. Could not appreciate murmur, no gallop. RESPIRATORY SYSTEM: Normal AP diameter. No accessory muscle use. No wheezing, no crackles. ABDOMEN: Soft, bowel sounds present, nontender, no distention. CENTRAL NERVOUS SYSTEM: Alert and oriented x3. No facial droop. Speech is clear. Obeys simple commands. Moves extremities. EXTREMITIES: 2+ edema, no erythema seen. Right knee with healed surgical scar and brace support. Results & Data Results & Data ([facility]) Vital Signs (Past 12 Hours) Vital Signs Temp Pulse Resp BP BP Pulse Ox 06/15/21 12:03 36.4 C L 93 H 20 89/62 L 93 06/15/21 08:08 36.7 C 90 20 95/64 L 96 06/15/21 04:17 36.8 C 86 18 93/65 L 96
[2021-06-15] MEDS: ACETAMINOPHEN 325 MG TAB PO PRN ×2 (15:27→22:05)
--- NOTE | 2021-06-15 16:16 | Gastrointestinal Consultation ---
Date of Consultation June 15, 2021 Supervising Physician Co-Signing Physician Notes 61 yo fm with a history of presumed curry cirrhosis, gg fistula s/p rygb, chronic pain, admitted 06/11 for confusion, ongoing issues with bacteremia and concerns for endocarditis and cardiology would like to do a doni potentially early next week. No overt signs of gi bleeding. No prior egd's seen in review of her chart. Hold any blood thinners on Thursday, npo after midnite for potential egd on thursday. History of Present Illness Reason for Consultation: ? assessment for varices Requesting Physician: Candis Clayton Attending Physician: Candis Clayton MD History of Present Illness 61 yo fm with a history of multiple medical problems including ckdz, post gastric bypass with gg fistula, presumed curry cirrhosis, chronic pain, now concerns for possible endocarditis given ongoing bacteremia. She was admitted 06/11 for confusion. Today she is alert and oriented, lying in bed, complaining of hip pain. Denies hematemesis or hematochezia, confusion, abdominal or leg swelling. Overall her main complaint today is of hip pain. Allergies Allergy/AdvReac Type Severity Reaction Status Date / Time cefaclor Allergy Intermediate Swelling Verified 03/11/21 22:25 oxycodone Allergy Intermediate HIVES Verified 03/11/21 22:25 amoxicillin Allergy Mild Nausea Verified 03/11/21 22:25 ceftriaxone [From Rocephin] Allergy Rash Verified 03/11/21 22:25 metronidazole [From Flagyl] Allergy Rash Verified 03/11/21 22:25 Home Medications Medication Instructions Recorded Confirmed Type cyanocobalamin (vitamin B-12) 1,000 mcg PO QAM 08/22/18 06/10/21 History 1,000 mcg tablet (Vitamin B-12) cholecalciferol (vitamin D3) 50 4,000 unit PO QAM 10/03/18 06/10/21 History mcg (2,000 unit) capsule (Vitamin D3) rifaximin 550 mg tablet (Xifaxan) 550 mg PO BID 10/03/18 06/10/21 History pantoprazole 40 mg tablet,delayed 40 mg PO BID 07/19/19 06/10/21 History release (Protonix) cetirizine 10 mg tablet (Zyrtec) 10 mg PO QAM 04/05/20 06/10/21 History amitriptyline 50 mg tablet 50 mg PO HS 09/02/20 06/10/21 History cyclobenzaprine 10 mg tablet 10 mg PO HS 09/02/20 06/10/21 History ferrous sulfate 220 mg (44 mg 220 mg PO QAM 11/25/20 06/10/21 History iron)/5 mL oral elixir lactulose 10 gram/15 mL oral 30 ml PO BID 11/25/20 06/10/21 History solution levothyroxine 75 mcg tablet 75 mcg PO DAILYBB 11/25/20 06/10/21 History sucralfate 1 gram tablet 1 g PO BID 11/25/20 06/10/21 History metoprolol tartrate 25 mg tablet 25 mg PO BID #0 tab 11/28/20 06/10/21 Rx ondansetron HCl 4 mg tablet 4 mg PO Q6H PRN #6 tab 01/31/21 06/10/21 Rx (Zofran) Lactobacillus comb 1 cap PO TIDM 06/10/21 06/10/21 History no.6-OHL-[id number] 300 million cell-250 mg capsule (Probiotic and Acidophilus) acetaminophen 325 mg tablet 650 mg PO Q6H PRN 06/10/21 06/10/21 History (Tylenol) duloxetine 30 mg capsule,delayed 30 mg PO QAM 06/10/21 06/10/21 History release enoxaparin 40 mg/0.4 mL 40 mg SUBCUT QAM 06/10/21 06/10/21 History subcutaneous syringe folic acid 1 mg tablet 1 mg PO QAM 06/10/21 06/10/21 History gabapentin 300 mg capsule 300 mg PO TID 06/10/21 06/10/21 History hydromorphone 4 mg tablet 4 mg PO TID 06/10/21 06/10/21 History (Dilaudid) menthol 0.44 %-zinc oxide 20.6 % 1 applic TOPICAL TID 06/10/21 06/10/21 History topical ointment (Calmoseptine) nitrofurantoin 100 mg PO BID 06/10/21 06/10/21 History monohydrate/macrocrystals 100 mg capsule saliva stimulant comb. no.3 4 spray MUCOUS MEMBRANE QID 06/10/21 06/10/21 History (Biotene Moisturizing Mouth) therapeutic multivitamin 1 tab PO QAM 06/10/21 06/10/21 History (Thera-Tabs) thiamine HCl (vitamin B1) 100 mg 100 mg PO DAILY 06/10/21 06/10/21 History tablet triamcinolone acetonide 0.1 % 1 applic TOPICAL TID 06/10/21 06/10/21 History topical cream zinc sulfate 220 mg capsule 220 mg PO QAM 06/10/21 06/10/21 History Patient History Medical History REJI (acute kidney injury) Anemia, iron deficiency Ascites Cirrhosis Depression Gastric peptic ulcer Hypothyroidism Neuropathy of both feet On anticoagulant therapy warfarin daily Surgical History History of arthrodesis left leg History of arthroplasty of right shoulder unable to lift arm after sx History of arthroscopy of left knee x2 History of arthroscopy of right knee x7 History of cardiac cath 2011--no stents History of cholecystectomy History of colonoscopy History of esophagogastroduodenoscopy (EGD) History of gastric bypass History of open reduction and internal fixation (ORIF) procedure left tib/fib fx--hardware in place History of surgery on extremity 2016--right leg hardware in place per pt a "fusion of her leg" History of tooth extraction all teeth removed History of total right knee replacement (TKR) 2006 Family History Sister Breast cancer Mother Hypertension Diabetes Other No family history of adverse response to anesthesia Social History Smoking Status: Never smoker Second Hand Exposure: No; Do You Dip or Chew Tobacco: No; Tobacco Cessation Education Requested by Patient: No Hx Alcohol Use: No Hx Substance Use: Yes Preferred Language: Slovenian Communication Ability: Effective Clinical Nutrition Manager Required: No Beliefs That Will Affect Care: None marital status: Single Current Living Situation: Assisted Other Information That Helps Us Care for You: No Feels Safe at Home: No Is there a partner from a previous relationship who is making you feel unsafe now?: No Any Concerns about Your Family Situation: No Would You Like to Speak to Someone About Your Situation: No Safety Concerns: Feels Safe At This Time Assistive Devices: Brace/Splint/Immobilizer Review of Systems Gastrointestinal: No hematemesis, no hematochezia, no nausea, vomiting, di arrhea, Physical Exam Physical Exam: Female in nad Eyes: No scleral icterus noted Gastrointestinal (Abdomen): obese soft nt nd Neurologic: PERRL, EOMI, accommodation nl, no face palsy, no dysarthria Results & Data ([facility]) Vital Signs (Past 12 Hours) Vital Signs Temp Pulse Resp BP BP Pulse Ox 06/15/21 16:00 36.6 C 85 18 85/57 L 98 06/15/21 12:03 36.4 C L 93 H 20 89/62 L 93 06/15/21 08:08 36.7 C 90 20 95/64 L 96 06/15/21 04:17 36.8 C 86 18 93/65 L 96 Laboratory Results cbc with stable anemia 9.4/27.3, platelets are 261 Na 132, Bun 20, Cr 2.25
[2021-06-15] MEDS: AMITRIPTYLINE HCL 50 MG TAB PO SCH (22:04)
[2021-06-15] MEDS: CYCLOBENZAPRINE HCL 10 MG TAB PO SCH (22:09)
--- NOTE | 2021-06-16 00:43 | Communication Note ---
Date of Service: June 16, 2021
[2021-06-16] MEDS: NAFCILLIN SODIUM 1,000 MG in DEXTROSE 5% 100 ML IV SCH ×6 (01:50→21:37)
[2021-06-16] MEDS: ALBUMIN 25% 12.5 GM/50 ML VIAL IV SCH ×6 (01:55→23:41)
[2021-06-16] MEDS: LEVOTHYROXINE SODIUM 75 MCG TABLET PO SCH (05:51)
[2021-06-16] MEDS: HEPARIN SOD 5,000 UNIT/0.5 ML VIAL SQ SCH ×2 (05:51→13:27)
[2021-06-16 07:10] LABS: Hematocrit (blood only) 25.2 % (37-47); Hemoglobin 8.6 g/dL (12.0-16.0); Mean Corpuscular Hemoglobin 28.6 pg (25-34); Mean Corpuscular Hgb Conc 34.1 g/dL (32-36); Mean Corpuscular Volume 83.7 fL (80-100); Mean Platelet Volume 10.4 fL (7.4-10.4); Platelet Count 211 K/uL (130-400); RDW Standard Deviation 48.7 fL (36.4-46.3); Red Blood Count 3.01 M/uL (4.2-5.4); White Blood Count 9.77 K/uL (4.8-10.8)
[2021-06-16 07:14] LABS: Base Excess VBG -9.9 mEq/L; HCO3 VBG 16 mmol/L; PCO2 VBG 34 mmHg (38-50); PO2 VBG 28 mmHg; pH VBG 7.28 (7.36-7.41)
[2021-06-16 07:36] LABS: Albumin Level 2.1 gm/dl (3.4-5.0); BUN Creatinine Ratio 8.2 (10-20); Calcium 8.2 mg/dl (8.5-10.1); Creatinine Clr Calc Pharmacy 24.2 ml/min; Est GFR (African American) 21.2 ml/min; Est GFR (Non-African American) 18.3 ml/min; Magnesium 2.6 mg/dl (1.8-2.4); Potassium 3.8 mmol/L (3.5-5.1)
--- NOTE | 2021-06-16 07:38 | CT Scan Report ---
RIGHT HIP CT CT DOSE: 1513.71 mGy.cm HISTORY: R hip pain TECHNIQUE: Multiaxial CT images of the right hip were performed and reformatted in the sagittal and c oronal plane without the use of contrast. A dose lowering technique was utilized adhering to the rigo Aguilar. COMPARISON: Abdomen and pelvis CT 03/11/2021. FINDINGS: There is avascular necrosis within the right femoral head with a subchondral fracture and m ild flattening of the femoral head. There is severe osteoarthritis of the right hip joint. This is si milar to the prior study. No acute fracture or dislocation within the right hip. The visualized pelvi c bones are intact. Small right hip effusion. IMPRESSION: No significant change in the right hip avascular necrosis with superimposed severe osteoarthritis. Th ere is again noted a subchondral fracture with collapse of the femoral head which remains unchanged. A small hip effusion is also unchanged. ACT 112: Negative or not required by law. Electronically signed by: Sánchez Sinclair M.D. 06/16/2021 7:37 AM
[2021-06-16 07:39] LABS: Albumin Globulin Ratio 0.8 (0.9-2); Bilirubin,Total 0.9 mg/dl (0.2-1); Globulin 2.7 gm/dl (2.5-4.0); Total Protein 4.8 gm/dl (6.4-8.2)
[2021-06-16 07:59] LABS: Oxygen Saturation VBG < 60.0 %
--- NOTE | 2021-06-16 08:08 | CT Scan Report ---
ABDOMEN AND PELVIS CT WITHOUT CONTRAST HISTORY: Acute right hip pain with acute renal failure R hip pain, arf ckd TECHNIQUE: Multiaxial CT images of the abdomen and pelvis were performed without contrast. A dose lo wering technique was utilized adhering to the principles of ALARA. COMPARISON STUDY: CT right hip of same day, CT abdomen pelvis 03/11/2021 FINDINGS: Moderate layering pleural effusions with dependent bibasilar consolidation. Limited study secondary t o upper extremity positioning and lack of contrast. No pneumatosis or pneumoperitoneum. Coronary cecilia ry calcifications. The unenhanced spleen is unremarkable with unchanged 9 mm peripherally calcified splenic artery aneur ysm. Atrophic pancreas with coarse calcifications compatible with chronic pancreatitis. Unremarkable adrenal glands. Cholecystectomy. Hepatomegaly with hepatic steatosis and mild marginal nodularity. No hepatic mass identified. Anasarca with small to moderate abdominal pelvic ascites. 11 mm peripherall y calcified right renal artery aneurysm. Unremarkable kidneys and ureters. Decompressed urinary bladd er with Medina catheter. No abdominal aortic aneurysm. Prominent inguinal chain lymph nodes measure up to 10 mm, nonspecific. Prior gastric bypass. No bowel obstruction. Colonic diverticulosis. Moderate fecal retention. Noninfl glenn appendix. Degenerative changes of the spine and pelvis. Avascular necrosis of the right femoral head with severe right hip osteoarthritis. Subchondral fracture with articular collapse of the femora l head. IMPRESSION: 1. No bowel obstruction or bowel wall thickening. 2. Hepatic steatosis and hepatomegaly with marginal nodularity suggestive of cirrhosis. 3. Volume overload with anasarca, moderate layering pleural effusions with small to moderate abdomina l pelvic ascites. 4. Avascular necrosis with subchondral fracture and partial articular collapse of the right femoral h ead. Severe associated right hip osteoarthritis. 5. Bibasilar consolidation suggestive of atelectasis. 6. Additional findings as above. ACT 112: Negative or not required by law. The above report was generated using voice recognition software. It may contain grammatical, syntax o r spelling errors. Electronically signed by: aCndido Campos M.D. 06/16/2021 8:07 AM
[2021-06-16] MEDS ORDERED: THIAMINE HCL 100 MG TAB PO SCH (09:15)
[2021-06-16] MEDS: FERROUS SULFATE 325 MG TAB PO SCH (09:51)
[2021-06-16] MEDS: rifAXIMin 550 MG TABLET PO SCH ×2 (09:52→20:15)
[2021-06-16] MEDS: ADVANCED PROBIOTIC 1250 MG CAPSULE PO SCH ×3 (09:52→17:07)
[2021-06-16] MEDS: FOLIC ACID 1 MG TAB PO SCH (09:53)
[2021-06-16] MEDS: SUCRALFATE 1 GM TAB PO SCH ×2 (09:53→20:15)
[2021-06-16] MEDS: GABAPENTIN 300 MG CAP PO SCH ×3 (09:53→20:15)
[2021-06-16] MEDS: CEROVITE ADV FORMULA TAB PO SCH (09:54)
[2021-06-16] MEDS: CHOLECALCIFEROL 1,000 UNITS 25 MCG TAB PO SCH (09:54)
[2021-06-16] MEDS: ZINC SULFATE 220 MG CAPSULE PO SCH (09:55)
[2021-06-16] MEDS: PANTOprazole 40 MG TAB PO SCH ×2 (09:55→20:14)
[2021-06-16] MEDS: METOPROLOL TARTRATE 25 MG TAB PO SCH ×2 (09:56→20:15)
[2021-06-16] MEDS: DULoxetine HCL 30 MG CAP PO SCH (09:57)
[2021-06-16] MEDS: CETIRIZINE HCL 10 MG TABLET PO SCH (09:57)
[2021-06-16] MEDS: THIAMINE HCL 100 MG TAB PO SCH (09:57)
[2021-06-16] MEDS: CYANOCOBALAMIN 500 MCG TABLET (VITAMIN B-12) PO SCH (09:58)
[2021-06-16] MEDS: LACTULOSE SYRUP 20 GM/30 ML UDC PO SCH ×2 (10:01→20:14)
[2021-06-16] MEDS: MAGNESIUM OXIDE 400 MG TAB PO SCH ×2 (11:08→20:16)
[2021-06-16] MEDS: traMADol HCL 50 MG TABLET PO PRN (11:15)
--- NOTE | 2021-06-16 13:02 | Nephrology Progress Note ---
Date of Service June 16, 2021 Assessment & Plan (1) REJI (acute kidney injury): Plan: oligoanuric REJI, worsening and now stage 2; likeliest ischemic ATN from effectiv e intravascular depletion in setting of liver disease > DAVIS/ EtOH cirrhosis c/b ascites, HE, esophageal varices. currently her renal status is c/b marked volume overload (effusions/ anasarca), concern for sepsis in pt w/ hx of prosthetic joint infection, under active tx for staph aureus bacteremia, w/ repeatedly + urine cxs. pt baseline creatinine is 0.9-1.1 as recently as earlier this summer. she does have hx of recurrent REJI (OP creat 1.8 in April on 20 mg daily torsemide which was stopped at that time). also w/ hx of chronic bacteriuria and LUTS. She presented with creatinine of 2 on 06/10, trended down to 1.8, increased to 2.7 today. Also with UTI on presentation. alexander placed for better I/O tracking. she has completed 5 days aztreonam for presumptive UTI on presentation but urine cxs still +. Systolic blood pressure has been in the 90s this admission, lower than previous admissions when it ran consistently in the 1 teens, 120s or higher. >>await repeat lactate, repeat UACM >>if lactate increasing more, needs albumin 25% x 25 gm IV qid (volume resuscitation in liver patient) >>if lactate stable/decreasing > recommend 25% albumin 12.5 gm IV w/ lasix 10 mg tid and would also start spironolactone 12.5 mg >>would welcome ID comments on urine >> she has had repeated tx for uti and does not clear it -daily bmp Care coordinated w/ Dr Clayton. Admission and Anticipated Discharge Date Admission Date: June 11, 2021 Subjective having some LLQ abd pain at times; no sob, ongoing edema. hardly eating and when she does it is not solid food (at least not for midday meal today) but drinking; ongoing generalized weakness; for EGD possibly followed in same suite by LUL tomorrow; also for possible paracentesis Review of Systems Review of Systems: All systems reviewed & are unremarkable except as noted in Subjective Physical Exam Constitutional: well developed, + cachectic and + frail appearing Eyes: EOM intact bilaterally ENMT: Ears: no external ear abnormality Nose: no external nose abnormality Mouth: + dry oral mucous membranes and + edentulous Neck: no nuchal rigidity Respiratory: normal respiratory effort Auscultation: + diminished lung sounds Cardiovascular: Rate/Rhythm: regular rate and regular rhythm Extremities: + edema (2-3+ BL proximal/dependent; trace BLE distal) Gastrointestinal (Abdomen): Inspection/Auscultation: normal bowel sounds Percussion/Palpation: abdomen soft and + abdomen firm; abdomen nontender, no guarding and no ascites Musculoskeletal: Extremities: + limited ROM of extremities (R knee in brace/hardware) and + abnormal strength (generalized weakness) Skin: no rashes, warm and dry Neurologic: blanco, fluent speech; more confusion today Results & Data ([facility]) Vital Signs (Past 12 Hours) Vital Signs Temp Pulse Pulse Pulse Resp BP Pulse Ox 06/16/21 11:52 36.4 C L 74 18 100/65 92 06/16/21 07:20 84 06/16/21 06:51 36.6 C 88 20 94/60 L 92 06/16/21 03:44 84 16 98/60 L 93 06/16/21 03:03 36.7 C 90 16 89/62 L 91 Laboratory Results 06/16/21 06:57 06/16/21 06:57 lactate 2.1; repeat lactate and uacm both in process Diagnostic Findings abd/pelvis CT non con Moderate layering pleural effusions with dependent bibasilar consolidation. Limited study secondary to upper extremity positioning and lack of contrast. No pneumatosis or pneumoperitoneum. Coronary artery calcifications. The unenhanced spleen is unremarkable with unchanged 9 mm peripherally calcified splenic artery aneurysm. Atrophic pancreas with coarse calcifications compatible with chronic pancreatitis. Unremarkable adrenal glands. Cholecystectomy. Hepatomegaly with hepatic steatosis and mild marginal nodularity. No hepatic mass identified. Anasarca with small to moderate abdominal pelvic ascites. 11 mm peripherally calcified right renal artery aneurysm. Unremarkable kidneys and ureters. Decompressed urinary bladder with Alexander catheter. No abdominal aortic aneurysm. Prominent inguinal chain lymph nodes measure up to 10 mm, nonspecific. Prior gastric bypass. No bowel obstruction. Colonic diverticulosis. Moderate fecal retention. Noninflamed appendix. Degenerative changes of the spine and pelvis. Avascular necrosis of the right femoral head with severe right hip ost eoarthritis. Subchondral fracture with articular collapse of the femoral head. IMPRESSION: 1. No bowel obstruction or bowel wall thickening. 2. Hepatic steatosis and hepatomegaly with marginal nodularity suggestive of cirrhosis. 3. Volume overload with anasarca, moderate layering pleural effusions with small to moderate abdominal pelvic ascites. 4. Avascular necrosis with subchondral fracture and partial articular collapse of the right femoral head. Severe associated right hip osteoarthritis. 5. Bibasilar consolidation suggestive of atelectasis. 6. Additional findings as above.
--- NOTE | 2021-06-16 13:10 | Gastroenterology Progress Note ---
Date of Service June 16, 2021 Assessment & Plan Admission and Anticipated Discharge Date Admission Date: June 11, 2021 Supervising Physician Co-Signing Physician Notes NPO after midnite for possible egd tomorrow. Hold blood thinners. Subjective Hip pain overnite- went for ct Review of Systems Review of Systems: Mild hip pain Gastrointestinal: No belly pain, no hematemesis, hematochezia Physical Exam Physical Exam: Elderly appearing female in nad Respiratory: normal respiratory effort, lungs clear to auscultation Gastrointestinal (Abdomen): Unchanged Results & Data ([facility]) Vital Signs (Past 12 Hours) Vital Signs Temp Pulse Pulse Pulse Resp BP Pulse Ox 06/16/21 11:52 36.4 C L 74 18 100/65 92 06/16/21 07:20 84 06/16/21 06:51 36.6 C 88 20 94/60 L 92 06/16/21 03:44 84 16 98/60 L 93 06/16/21 03:03 36.7 C 90 16 89/62 L 91 Laboratory Results Labs - hgb stable, bun/cr slight bump
[2021-06-16] MEDS: TRIAMCINOLONE ACET 0.1% CR 15 GM TUBE TOP SCH ×3 (13:37→20:16)
[2021-06-16] MEDS: MENTHOL-ZINC OXIDE 360 APPLN/120 GM TUBE EXT SCH ×3 (13:37→20:16)
--- NOTE | 2021-06-16 14:01 | Cardiology Progress Note ---
Date of Service June 16, 2021 Assessment & Plan (1) Bacteremia: (2) Encephalopathy: (3) Acute on chronic renal failure: (4) AMS (altered mental status): (5) Alcoholic cirrhosis of liver without ascites: (6) Infection of prosthetic right knee joint: (7) Avascular necrosis of bone of right hip: (8) SVT (supraventricular tachycardia): (9) History of alcohol abuse: (10) Ambulatory dysfunction: (11) Anemia: (12) Cirrhosis: (13) PAF (paroxysmal atrial fibrillation): Plan: I agree that a transesophageal echocardiogram is indicated to rule out possible endocarditis given ongoing bacteremia. Unfortunately, the patient is overdue for an EGD for her history of cirrhosis and varices. I believe the most prudent course of action would be to have the EGD performed first to evaluate her varices before LUL is performed. Dr. Gil assumes the cardiology service in the a.m. and EGD should be coordinated with him and the echo lab so that may be performed immediately following the EGD depending on EGD results Admission and Anticipated Discharge Date Admission Date: June 11, 2021 Subjective Patient seen and examined, chart reviewed. States that she is having some abdominal discomfort today and bloating but denies any cardiac complaints of chest pain, shortness of breath, palpitations, lightheadedness, dizziness or syncope. Telemetry reviewed: Normal sinus rhythm without arrhythmia Review of Systems Review of Systems: All systems reviewed & are unremarkable except as noted in HPI & below Physical Exam Physical Exam: General: Awake, alert and oriented x 3. No acute distress. HEENT: Normocephalic, atraumatic. Pupils equal, round and reactive to light and accommodation. Extraocular muscles are intact. Anicteric sclera. Moist mucous membranes. Neck: No JVD. No bruit. Cardiovascular: Regular. Positive S-4. Normal S-1 and S-2. No S-3. 3/6 holosystolic ejection murmur, 5th intercostal space, mid-clavicular line without radiation. No rubs. Pulmonary: Clear to auscultation bilaterally. No rales, rhonchi, or wheezing. Abdomen: Bowel sounds x 4, soft. No rebound, guarding or tenderness. No organomegaly. Extremities: No clubbing, cyanosis or edema. +2 pedal pulses bilaterally. Skin: Warm and dry. Results & Data ([facility]) Vital Signs (Past 12 Hours) Vital Signs Temp Pulse Pulse Pulse Resp BP Pulse Ox 06/16/21 11:52 36.4 C L 74 18 100/65 92 06/16/21 07:20 84 06/16/21 06:51 36.6 C 88 20 94/60 L 92 06/16/21 03:44 84 16 98/60 L 93 06/16/21 03:03 36.7 C 90 16 89/62 L 91 (1) AMS (altered mental status) Altered mental status type: unspecified Qualified Code(s): R41.82 - Altered mental status, unspecified (2) Cirrhosis Ascites presence: without ascites Hepatic cirrhosis type: alcoholic cirrhosis Qualified Code(s): K70.30 - Alcoholic cirrhosis of liver without ascites
--- NOTE | 2021-06-16 18:19 | Hospitalist Progress Note ---
Date of Service June 16, 2021 Assessment & Plan (1) Encephalopathy: (2) Bacteremia: Plan: 61-year-old female with PMH of hypothyroidism, PAF, SVT, cirrhosis, obesity status post gastric bypass, gastrogastric fistula, CKD stage III, septic arthritis, infection of prosthetic knee joint, back pain, chronic pain syndrome, anemia, anastomotic ulcer status post gastric bypass, C. difficile, depression, pseudogout, GI bleed, and narcotic drug use was sent to the ED 06/10 from [facility] for concerns of confusion. [facility] staff were suspicious that the patient's family is giving her cannabinoid therapy [urine drug screen positive for opiates at presentation -she also takes prescribed pain medications]. #. Acute encephalopathy #. Bacteremia -Staph aureus #. UTI Admitting CXR, head CT revealed no acute process. Multifactorial, likely from UTI versus acute on chronic kidney disease versus analgesics Resolved, AOx3 since 1 day after arrival Patient had been afebrile in the hospital. 06/10 urine culture positive for E. coli and Klebsiella oxytoca. 06/11 blood culture positive for Staph aureus, follow-up with the final result. 06/15 repeat blood culture and urine culture sent. ID on board: Patient received daptomycin and aztreonam until 06/14 since admission when it was stopped due to blood culture being nonconclusive. Patient started on nafcillin 06/15. Patient do have renal and hepatic compromise, and hence keep an eye for interstitial nephritis/bone marrow suppression/neurotoxicity/elevated LFTs/cholestasis. In such event either decrease the dose by 50% or changed to daptomycin. Until before identification of GPC, it was deemed as contaminant and hence Dapto was stopped per ID. Identified as a staph aureus on 06/15 a.m.contacted ID again via [facility] textrecommended nafcillin or daptomycin for 14 days for now [she has history of reaction to cephalosporin, has tolerated certain cephalosporins in the past per pharmacyhence, trial of cephalosporin with close monitoring if needed could be a possibility] but if there is ongoing bacteremia/test positive for infective endocarditis we might need to consider ID re-evaluation of the patient and make recommendation. Cardiology on board: Contacted cardiology 06/15 for LUL which is possibly scheduled on Thursday but requires EGD for varices [history of cirrhosis, overdue for scope] prior to that hence consulted GI as well. Underwent TTE 06/15 but had limited view per fire control technician b. Continue with nafcillin, continue to monitor. Follow-up with LUL. Likely need ID reevaluation after LUL. Consider asking reevaluation for urinary culture growing organisms persistently. #. History of alc liver cirrhosis and ascites GI on board: Plan for EGD tomorrow, to be coordinated with LUL. Possible paracentesis tomorrow N.p.o. midnight and hold heparin. #. Acute on chronic kidney disease Admitting creatinine 2.03, not making progress Nephro on board: Medina placed for better I/O tracking, monitor for sepsis given hypotension/bacteremia, recommends albumin 12.5 gm with Lasix 10 mg 3 times daily, started spironolactone 12.5 mg continue with strict I's/O avoid NSAID follow-up BMP tomorrow #. Anemia Hemoglobin at presentation 9.4, stable. MCV 80s multifactorial Ferritin level elevated with elevated transferrin saturation, low iron and low TIBC, FOBT negative. Vitamin B12 and folate not deficient fairly stable #. Analgesics/chronic pain syndrome per H&P, SNF suspicious regarding family members bringing in additional pain medications/narcotics to patient per patient, she is receiving excessive Dilaudid at SNF Urine Drug Screen: Positive for opiates. Patient takes prescribed pain medications. hold narcotics for now monitor Avoid NSAIDs #. Right knee s/p antibiotic spacer 04/02/2021 -- follows with Brandin Dill as per last ff up visit Brandin Serrano 06/10/2021, treat UTI first then ff up 07/01 for possible aspiration, revision -- [facility] does not feel patient has infected R knee at this time -- monitor closely #. BL Leg edema -- Doppler US: negative #. Alcoholic cirrhosis of the liver without ascites: Will continue Xifaxan and lactulose. Not on any diuretics. -- no ascited on US #. Continue home medication for depression and hypertension. Deep venous thrombosis prophylaxis: Heparin SC Disposition anticipate return to SNF when medically stable. PT OT consulted for recommendation. Patient wants different residential - will have to go to same NH per CM, then she can change NH from there. Admission and Anticipated Discharge Date Admission Date: June 11, 2021 Subjective Patient was lying in bed, NAD, on room air, denies fever/chills/sore throat/chest pain/palpitations/cough/headache/dizziness/acute changes in her bladder habits. She states her pain over the recently operated right knee is under control. Last BM yesterday. Patient states of feeling malaise and lethargic. Physical Exam Physical Exam: GENERAL: Alert and oriented x3. NAD, on RA. HEENT: No pallor, no icterus. Pupils equal, round and reactive to light. Oral mucosa moist. NECK: No JVD, no neck masses. HEART: S1 and S2 heard. Regular rate and rhythm. Could not appreciate murmur, no gallop. RESPIRATORY SYSTEM: Normal AP diameter. No accessory muscle use. No wheezing, no crackles. ABDOMEN: Soft, bowel sounds present, nontender, no distention. CENTRAL NERVOUS SYSTEM: Alert and oriented x3. No facial droop. Speech is clear. Obeys simple commands. Moves extremities. EXTREMITIES: 2+ edema, no erythema seen. Right knee with healed surgical scar and brace support. Results & Data Results & Data ([facility]) Vital Signs (Past 12 Hours) Vital Signs Temp Pulse Pulse Pulse Resp BP Pulse Ox 06/16/21 15:15 86 06/16/21 14:55 36.5 C 80 20 90/61 L 95 06/16/21 11:52 36.4 C L 74 18 100/65 92 06/16/21 07:20 84 06/16/21 06:51 36.6 C 88 20 94/60 L 92
[2021-06-16] MEDS: AMITRIPTYLINE HCL 50 MG TAB PO SCH (20:15)
[2021-06-16] MEDS: CYCLOBENZAPRINE HCL 10 MG TAB PO SCH (20:33)
[2021-06-16] MEDS ORDERED: FUROSEMIDE 10 MG in SYRINGE 0 ML IV SCH (21:00)
--- NOTE | 2021-06-16 22:50 | Communication Note ---
Date of Service: June 16, 2021 Made aware by RN of SBP 70s, increased drowsiness Patient just received first dose IV Lasix. Nighttime Amitriptyline, Flexeril, Gabapentin given as well SBP improved to 80s after additional IV albumin administration AP Hypotension Worsening kidney dysfunction with borderline lactic acidosis PCU transfer for closer monitoring (ICU provider requested to evaluate patient prior to transfer to determine eligibility for ICU monitoring given hypotension and potential need for pressors. PCU level of care appropriate for now as per provider.) Continue IV albumin Hold Lasix Hold neuropsychotropic meds Will relay to AM provider.
[2021-06-16 23:32] LABS: BUN Creatinine Ratio 7.9 (10-20); Bilirubin Direct 0.5 mg/dl (0-0.2); Calcium 7.7 mg/dl (8.5-10.1); Creatinine Clr Calc Pharmacy 22.6 ml/min; Est GFR (African American) 19.5 ml/min; Est GFR (Non-African American) 16.8 ml/min; Potassium 3.7 mmol/L (3.5-5.1)
[2021-06-16 23:35] LABS: Bilirubin,Total 0.8 mg/dl (0.2-1); Total Protein 4.3 gm/dl (6.4-8.2)
[2021-06-16 23:40] LABS: INR 1.7 (0.9-1.1); Prothrombin Time 16.7 Seconds (9.0-12.0)
[2021-06-17] MEDS: NAFCILLIN SODIUM 1,000 MG in DEXTROSE 5% 100 ML IV SCH ×6 (02:47→20:36)
[2021-06-17 05:21] LABS: Hematocrit (blood only) 24.3 % (37-47); Hemoglobin 8.3 g/dL (12.0-16.0); Mean Corpuscular Hemoglobin 28.4 pg (25-34); Mean Corpuscular Hgb Conc 34.2 g/dL (32-36); Mean Corpuscular Volume 83.2 fL (80-100); Mean Platelet Volume 10.9 fL (7.4-10.4); Platelet Count 185 K/uL (130-400); RDW Coefficient of Variation 16.1 % (11.5-14.5); RDW Standard Deviation 48.6 fL (36.4-46.3); Red Blood Count 2.92 M/uL (4.2-5.4); White Blood Count 9.24 K/uL (4.8-10.8)
[2021-06-17 05:32] LABS: INR 1.6 (0.9-1.1); Prothrombin Time 15.6 Seconds (9.0-12.0)
[2021-06-17 05:47] LABS: Albumin Level 2.5 gm/dl (3.4-5.0); BUN Creatinine Ratio 7.7 (10-20); Calcium 7.8 mg/dl (8.5-10.1); Creatinine Clr Calc Pharmacy 22.3 ml/min; Est GFR (African American) 19.2 ml/min; Est GFR (Non-African American) 16.6 ml/min; Magnesium 2.9 mg/dl (1.8-2.4); Potassium 3.9 mmol/L (3.5-5.1)
[2021-06-17 05:50] LABS: Albumin Globulin Ratio 0.9 (0.9-2); Bilirubin,Total 1.1 mg/dl (0.2-1); Globulin 2.7 gm/dl (2.5-4.0); Phosphorus 2.4 mg/dl (2.5-4.9); Total Protein 5.2 gm/dl (6.4-8.2)
[2021-06-17] MEDS: LEVOTHYROXINE SODIUM 75 MCG TABLET PO SCH (06:06)
[2021-06-17] MEDS ORDERED: SPIRONOLACTONE 12.5 MG TAB PO SCH (09:00)
--- NOTE | 2021-06-17 09:54 | Ultrasound Report ---
US abdomen ltd ascites CLINICAL HISTORY: diagnostic and therapeutic paracentesis, ascites COMPARISON STUDY: Abdomen and pelvis CT 06/16/2021. FINDINGS: Real-time sonographic imaging of abdomen was performed with environmental marketing representative images submitted to evaluate for a safe needle entry site for paracentesis. There are few small scattered pockets of ascites identified. No large pockets identified for paracentesis. Therefore, the paracentesis was not performed at this time. IMPRESSION: Small scattered pockets of ascites seen throughout the abdomen and pelvis which are not amenable to ultrasound-guided paracentesis at this time. ACT 112: Negative or not required by law. Electronically signed by: Sánchez Sinclair M.D. 06/17/2021 9:53 AM
--- NOTE | 2021-06-17 09:54 | Nephrology Progress Note ---
Date of Service June 17, 2021 Assessment & Plan (1) REJI (acute kidney injury): Plan: oligoanuric REJI, worsening further and stage 2 bordering on stage 3; ischemic AT N from effective intravascular depletion in setting of liver disease > DAVIS/ EtOH cirrhosis c/b ascites, HE, esophageal varices. currently her renal status is c/b marked volume overload (effusions/ anasarca/loculated ascites as per u/s 8/16 AM), concern for sepsis in pt w/ hx of prosthetic joint infection, under active tx for staph aureus bacteremia, w/ repeatedly + urine cxs. pt baseline creatinine is 0.9-1.1 as recently as earlier this summer. she does have hx of recurrent REJI (OP creat 1.8 in April on 20 mg daily torsemide which was stopped at that time). also w/ hx of chronic bacteriuria and LUTS. She presented with creatinine of 2 on 06/10, trended down to 1.8, increased to 3 today. Also with UTI on presentation. alexander placed for better I/O tracking. she has completed 5 days aztreonam for presumptive UTI on presentation but urine cxs still +. repeat UACM w/ bacteria, epithelial cells >> could be c/w infection or not. Systolic blood pressure has been in the 90s this admission, lower than previous admissions when it ran consistently in the 1 teens, 120s or higher. >once today's procedure(s) complete, resume 25% albumin 12.5 gm IV w/ lasix 10 mg tid and would also start spironolactone 12.5 mg >>would welcome ID comments on urine >> she has had repeated tx for uti and does not clear it -daily bmp Care coordinated w/ Jeffery Boateng Admission and Anticipated Discharge Date Admission Date: June 11, 2021 Subjective had one dose of lasix; sbp > 70s w/ more drowsiness and moved to PCU after ICU eval. gabapentin held > had been getting 300 mg tid. for EGD today and LUL tomorrow; no paracentesis d/t loculated ascites on u/s this am. pt very confused today and mumbling; unable to do simplest ROS Review of Systems Review of Systems: Unobtainable due to cognitive status Physical Exam Constitutional: well developed, + cachectic and + frail appearing Eyes: EOM intact bilaterally ENMT: Ears: no external ear abnormality Nose: no external nose abnormality Mouth: + dry oral mucous membranes and + edentulous Neck: no nuchal rigidity Respiratory: normal respiratory effort Auscultation: + diminished lung sounds on RA Cardiovascular: Rate/Rhythm: regular rate and regular rhythm Extremities: + edema (2-3+ BL proximal/dependent; trace BLE distal) Gastrointestinal (Abdomen): Inspection/Auscultation: normal bowel sounds Percussion/Palpation: abdomen soft and + abdomen firm; abdomen nontender, no guarding and no ascites Musculoskeletal: Extremities: + limited ROM of extremities (R knee in brace/hardware) and + abnormal strength (generalized weakness) Skin: no rashes, warm and dry Results & Data ([facility]) Vital Signs (Past 12 Hours) Vital Signs Temp Pulse Pulse Resp BP BP Pulse Ox 06/17/21 06:52 76 12 97/68 L 95 06/17/21 04:52 84 15 101/61 93 06/17/21 03:52 73 13 94/58 L 95 06/17/21 02:52 77 7 L 92/65 L 93 06/17/21 01:52 79 14 105/74 96 06/17/21 01:33 06/17/21 01:00 06/17/21 00:52 89 18 100/81 95 06/17/21 00:43 80 06/17/21 00:09 82 06/16/21 23:25 36.3 C L 80 20 90 06/16/21 23:12 84 16 89/57 L 93 06/16/21 23:02 36.7 C 88 15 93/63 L 91 06/16/21 22:56 86/59 L 06/16/21 22:50 82 10 L 06/16/21 22:48 36.3 C L 82 14 86/59 L 90 Pulse Ox 06/17/21 06:52 06/17/21 04:52 06/17/21 03:52 06/17/21 02:52 06/17/21 01:52 06/17/21 01:33 97 06/17/21 01:00 98 06/17/21 00:52 06/17/21 00:43 06/17/21 00:09 06/16/21 23:25 06/16/21 23:12 06/16/21 23:02 06/16/21 22:56 06/16/21 22:50 06/16/21 22:48 Laboratory Results 06/17/21 05:10 06/17/21 05:10
[2021-06-17] MEDS: LACTULOSE SYRUP 20 GM/30 ML UDC PO SCH ×3 (09:57→20:33)
[2021-06-17] MEDS: CEROVITE ADV FORMULA TAB PO SCH (09:58)
[2021-06-17] MEDS: DULoxetine HCL 30 MG CAP PO SCH (09:58)
[2021-06-17] MEDS: ADVANCED PROBIOTIC 1250 MG CAPSULE PO SCH ×4 (09:59→17:32)
[2021-06-17] MEDS: FERROUS SULFATE 325 MG TAB PO SCH ×2 (09:59→14:26)
[2021-06-17] MEDS: FOLIC ACID 1 MG TAB PO SCH (09:59)
[2021-06-17] MEDS: CHOLECALCIFEROL 1,000 UNITS 25 MCG TAB PO SCH ×2 (09:59→14:26)
[2021-06-17] MEDS: MAGNESIUM OXIDE 400 MG TAB PO SCH ×3 (09:59→20:42)
[2021-06-17] MEDS: CYANOCOBALAMIN 500 MCG TABLET (VITAMIN B-12) PO SCH ×2 (09:59→14:29)
[2021-06-17] MEDS: THIAMINE HCL 100 MG TAB PO SCH ×2 (10:00→14:28)
[2021-06-17] MEDS: rifAXIMin 550 MG TABLET PO SCH ×2 (10:00→20:39)
[2021-06-17] MEDS: SUCRALFATE 1 GM TAB PO SCH ×3 (10:00→20:38)
[2021-06-17] MEDS: PANTOprazole 40 MG TAB PO SCH ×3 (10:00→20:38)
[2021-06-17] MEDS: ZINC SULFATE 220 MG CAPSULE PO SCH ×2 (10:00→14:28)
[2021-06-17] MEDS: CETIRIZINE HCL 10 MG TABLET PO SCH ×2 (10:00→14:27)
[2021-06-17] MEDS: MENTHOL-ZINC OXIDE 360 APPLN/120 GM TUBE EXT SCH ×3 (10:00→20:36)
--- NOTE | 2021-06-17 10:00 | Hospitalist Progress Note ---
Date of Service June 17, 2021 Assessment & Plan (1) Encephalopathy: (2) Bacteremia: Plan: 61-year-old female with PMH of hypothyroidism, PAF, SVT, cirrhosis, obesity status post gastric bypass, gastrogastric fistula, CKD stage III, septic arthritis, infection of prosthetic knee joint, back pain, chronic pain syndrome, anemia, anastomotic ulcer status post gastric bypass, C. difficile, depression, pseudogout, GI bleed, and narcotic drug use was sent to the ED 06/10 from [facility] for concerns of confusion. [facility] staff were suspicious that the patient's family is giving her cannabinoid therapy [urine drug screen positive for opiates at presentation -she also takes prescribed pain medications]. #. Acute encephalopathy #. Bacteremia -Staph aureus #. UTI Admitting CXR, head CT revealed no acute process. Multifactorial, likely from UTI versus acute on chronic kidney disease versus analgesics Resolved, AOx3 since 1 day after arrival Patient had been afebrile in the hospital. 06/10 urine culture positive for E. coli and Klebsiella oxytoca. 06/11 blood culture positive for Staph aureus, follow-up with the final result. 06/15 repeat blood culture and urine culture sent. ID on board: Patient received daptomycin and aztreonam until 06/14 since admission when it was stopped due to blood culture being nonconclusive. Patient started on nafcillin 06/15. Patient does have renal and hepatic compromise, and hence keep an eye for interstitial nephritis/bone marrow suppression/neurotoxicity/elevated LFTs/cholestasis. In such event either decrease the dose by 50% or changed to daptomycin. Until before identification of GPC, it was deemed as contaminant and hence Dapto was stopped per ID. Identified as a staph aureus on 06/15 a.m.contacted ID again via [employer] textrecommended nafcillin or daptomycin for 14 days for now [she has history of reaction to cephalosporin, has tolerated certain cephalosporins in the past per pharmacyhence, trial of cephalosporin with close monitoring if needed could be a possibility] but if there is ongoing bacteremia/test positive for infective endocarditis we might need to consider ID re-evaluation of the patient and make recommendation. Cardiology on board: Contacted cardiology 06/15 for LUL which is possibly scheduled on today but requires EGD for varices [history of cirrhosis, overdue for scope] prior to that hence consulted GI as well. Underwent TTE 06/15 but had limited view per rim technician. Continue with nafcillin, continue to monitor. Follow-up with LUL. Likely need ID reevaluation after LUL. Consider asking reevaluation for urinary culture growing organisms persistently. #. History of alc liver cirrhosis and ascites GI on board: Plan for EGD tomorrow, to be coordinated with LUL. Possible paracentesis tomorrow N.p.o. midnight and hold heparin. #. Acute on chronic kidney disease Admitting creatinine 2.03, not making progress Nephro on board: Medina placed for better I/O tracking, monitor for sepsis given hypotension/bacteremia, recommends albumin 12.5 gm with Lasix 10 mg 3 times daily, started spironolactone 12.5 mg continue with strict I's/O avoid NSAID follow-up BMP tomorrow #. Anemia Hemoglobin at presentation 9.4, stable. MCV 80s multifactorial Ferritin level elevated with elevated transferrin saturation, low iron and low TIBC, FOBT negative. Vitamin B12 and folate not deficient fairly stable #. Analgesics/chronic pain syndrome per H&P, SNF suspicious regarding family members bringing in additional pain medications/narcotics to patient per patient, she is receiving excessive Dilaudid at SNF Urine Drug Screen: Positive for opiates. Patient takes prescribed pain medications. hold narcotics for now monitor Avoid NSAIDs #. Right knee s/p antibiotic spacer 04/02/2021 -- follows with Brandin Dill as per last ff up visit Brandin Serrano 06/10/2021, treat UTI first then ff up 07/01 for possible aspiration, revision -- [facility] does not feel patient has infected R knee at this time -- monitor closely #. BL Leg edema -- Doppler US: negative #. Alcoholic cirrhosis of the liver without ascites: Will continue Xifaxan and lactulose. Not on any diuretics. -- no ascites on US #. Continue home medication for depression and hypertension. Deep venous thrombosis prophylaxis: Heparin SC Disposition anticipate return to SNF when medically stable. PT/OT. Patient wants different retirement - will have to go to same NH per CM, then she can change NH from there. Picked her up today and reviewed chart, Cont abx, await LUL/EGD. ROS-No Headache, No Visual Changes, No Nausea, No Vomiting, No Fever, No Chills, No Neck Pain or Stiffness, No Chest Pain, No Palpitations, No SOB, No THURMAN, No Cough, No Sputum, No Wheezing, No Abdominal Pain, No Diarrhea, No Hematemesis, No Hemoptysis, No Unexpected Weight Loss, No Flank pain, No Melena, No Hematochezia, No Frequency, No Urgency, No Burning, No Hematuria, No Rashes, No Diaphoresis. Appetite is Normal Physical Exam Gen-AAO x 3, NAD, Afebrile Head-NCAT, EOMI, PERRLA, Anicteric Sclera, No Posterior Pharyngeal Erythema Neck-Supple, No JVD, No Thyromegaly, No Masses, No LAD, No Bruits Lungs-Clear to Auscultation Bilaterally, No Rales, No Rhonchi, No Wheezing, No Crepitus Chest-No S4, +S1, +S2, No S3, No Murmurs, No Rubs, No Gallops, No Ectopy Abdomen-Soft, Bowel Sounds Present, Non Tender, Non Distended, No Hepatomegaly, No Splenomegaly, No Palpable Masses, No Rebound, No Rigidity, No Guarding Musculoskeletal-Full Range of Motion Bilaterally, No CVAT Extremities-No Cyanosis, No Clubbing, No Edema Nuero-Cranial Nerves II-XII grossly intact, Motor WNL, DTRs WNL, Strength WNL, Non Focal Psych-Normal Mood Admission and Anticipated Discharge Date Admission Date: June 11, 2021 Results & Data Results & Data ([facility]) Vital Signs (Past 12 Hours) Vital Signs Temp Pulse Pulse Resp BP BP Pulse Ox 06/17/21 06:52 76 12 97/68 L 95 06/17/21 04:52 84 15 101/61 93 06/17/21 03:52 73 13 94/58 L 95 06/17/21 02:52 77 7 L 92/65 L 93 06/17/21 01:52 79 14 105/74 96 06/17/21 01:33 06/17/21 01:00 06/17/21 00:52 89 18 100/81 95 06/17/21 00:43 80 06/17/21 00:09 82 06/16/21 23:25 36.3 C L 80 20 90 06/16/21 23:12 84 16 89/57 L 93 06/16/21 23:02 36.7 C 88 15 93/63 L 91 06/16/21 22:56 86/59 L 06/16/21 22:50 82 10 L 06/16/21 22:48 36.3 C L 82 14 86/59 L 90 Pulse Ox 06/17/21 06:52 06/17/21 04:52 06/17/21 03:52 06/17/21 02:52 06/17/21 01:52 06/17/21 01:33 97 06/17/21 01:00 98 06/17/21 00:52 06/17/21 00:43 06/17/21 00:09 06/16/21 23:25 06/16/21 23:12 06/16/21 23:02 06/16/21 22:56 06/16/21 22:50 06/16/21 22:48
[2021-06-17] MEDS: ALBUMIN 25% 12.5 GM/50 ML VIAL IV SCH ×2 (10:32→14:53)
--- NOTE | 2021-06-17 10:39 | Gastroenterology Progress Note ---
Date of Service June 17, 2021 Assessment & Plan (1) Cirrhosis: Plan: EGD today for screening for EV in the setting of DAVIS cirrhosis. Please continue NPO. Further recommendations to follow EGD. Regarding hx of cirrhosis, continue Xifaxin, Pantoprazole, lactulose and OP f/u with Dr. Gallegos. Present on Admission?: Yes Admission and Anticipated Discharge Date Admission Date: June 11, 2021 Supervising Physician Co-Signing Physician Notes I saw and evaluated the patient. We are planning to do upper endoscopy as the patient is being considered for we have been asked to do upper endoscopy to screen for esophageal varices. I have discussed the risks of the procedure with the patient to include bleeding, infection, perforation, pain and need for follow-up studies Subjective Ms. Ascencio is a 61 yr old female resident of [facility] with a hx of P A-Fib, SVT, obesity S/P GB, gastrogastric fistula, CKD3, depression, osteoarthritis who had undergone knee surgery in April 2021 with plans for replacement on 06/11/20, b ut was admitted with UTI/confusion on 06/11, which has since resolved. GI is asked to provide EGD for screening for EV prior to LUL planned for tomorrow. The pt has not had gross GI bleeding. Hb is 8.3, BUN 23, INR 1.6. On Lovenox as OP, held since arrival, Heparin was held since yesterday afternoon. Most recent EGD in [address] Gallegos w/o varices. She does carry hx of marginal ulcer. Review of Systems Review of Systems: ROS: Gen: + general weakness; no fevers, no unexplained weight loss Eyes: No eye redness, or pain, no recent vision changes Resp: No SOB, no cough Cardio: No palpitations/irregular beats, no chest pain GI: + abdominal distension/gassiness. No nausea/vomiting : Denies pain on urination Skin: No jaundice, itching or new rashes Physical Exam Constitutional: WD/WN, vitals as above Eyes: PERRL, conjunctivae normal, anicteric sclerae Neck: trachea midline, no thyromegaly Respiratory: normal respiratory effort, lungs clear to auscultation Cardiovascular: RRR, no murmur, no edema Gastrointestinal (Abdomen): Abdomen is mildly distended, with moderate diffuse tenderness, no focal tenderness or masses. Skin: no rashes, warm and dry appears pale Neurologic: PERRL, EOMI, accommodation nl, no face palsy, no dysarthria no asterixes Psychiatric: A+Ox3, euthymic affect Results & Data ([facility]) Vital Signs (Past 12 Hours) Vital Signs Temp Pulse Pulse Resp BP BP Pulse Ox 06/17/21 06:52 76 12 97/68 L 95 06/17/21 04:52 84 15 101/61 93 06/17/21 03:52 73 13 94/58 L 95 06/17/21 02:52 77 7 L 92/65 L 93 06/17/21 01:52 79 14 105/74 96 06/17/21 01:33 06/17/21 01:00 06/17/21 00:52 89 18 100/81 95 06/17/21 00:43 80 06/17/21 00:09 82 06/16/21 23:25 36.3 C L 80 20 90 06/16/21 23:12 84 16 89/57 L 93 06/16/21 23:02 36.7 C 88 15 93/63 L 91 06/16/21 22:56 86/59 L 06/16/21 22:50 82 10 L 06/16/21 22:48 36.3 C L 82 14 86/59 L 90 Pulse Ox 06/17/21 06:52 06/17/21 04:52 06/17/21 03:52 06/17/21 02:52 06/17/21 01:52 06/17/21 01:33 97 06/17/21 01:00 98 06/17/21 00:52 06/17/21 00:43 06/17/21 00:09 06/16/21 23:25 06/16/21 23:12 06/16/21 23:02 06/16/21 22:56 06/16/21 22:50 06/16/21 22:48 Laboratory Results WBC 9, Hb 8.3, Hct 24, plats 185, PT 15, INR 1.6, Na 129, K 3.7, BUN 23, Cr 2.8. Diagnostic Findings Abd US today w/o significant ascites. CTAP noncontrast 06/16/21: 1. No bowel obstruction or bowel wall thickening. 2. Hepatic steatosis and hepatomegaly with marginal nodularity suggestive of cirrhosis. 3. Volume overload with anasarca, moderate layering pleural effusions with small to moderate abdominal pelvic ascites. 4. Avascular necrosis with subchondral fracture and partial articular collapse of the right femoral head. Severe associated right hip osteoarthritis. 5. Bibasilar consolidation suggestive of atelectasis. 6. Additional findings as above. (1) Cirrhosis Ascites presence: without ascites Hepatic cirrhosis type: alcoholic cirrhosis Qualified Code(s): K70.30 - Alcoholic cirrhosis of liver without ascites
--- NOTE | 2021-06-17 10:44 | Anesthesiology Consultation ---
Date of Service June 17, 2021 Assessment & Plan (1) Encounter for pre-operative examination: Chart Review Chart Review: Acceptable Risk for Surgery, Patient NOT seen in Pre Admission Testing and entry level java developer initiated Consults Requested none History Surgery Operation Date: 06/17/21 16:45 Proposed Procedures p Esophagogastroduodenoscopy Dr Maico Nina, DO Height/Weight Height: 5 ft 4 in Weight: 90.1 kg Allergies Allergy/AdvReac Type Severity Reaction Status Date / Time cefaclor Allergy Intermediate Swelling Verified 03/11/21 22:25 oxycodone Allergy Intermediate HIVES Verified 03/11/21 22:25 amoxicillin Allergy Mild Nausea Verified 03/11/21 22:25 ceftriaxone [From Rocephin] Allergy Rash Verified 03/11/21 22:25 metronidazole [From Flagyl] Allergy Rash Verified 03/11/21 22:25 Medications Home Medications Medication Instructions Recorded Confirmed Last Taken cyanocobalamin (vitamin B-12) 1,000 mcg PO QAM 08/22/18 06/10/21 06/10/21 1,000 mcg tablet (Vitamin B-12) cholecalciferol (vitamin D3) 50 4,000 unit PO QAM 10/03/18 06/10/21 06/10/21 mcg (2,000 unit) capsule (Vitamin D3) rifaximin 550 mg tablet (Xifaxan) 550 mg PO BID 10/03/18 06/10/21 06/10/21 pantoprazole 40 mg tablet,delayed 40 mg PO BID 07/19/19 06/10/21 06/10/21 08:30 release (Protonix) cetirizine 10 mg tablet (Zyrtec) 10 mg PO QAM 04/05/20 06/10/21 06/10/21 amitriptyline 50 mg tablet 50 mg PO HS 09/02/20 06/10/21 06/09/21 cyclobenzaprine 10 mg tablet 10 mg PO HS 09/02/20 06/10/21 06/09/21 ferrous sulfate 220 mg (44 mg 220 mg PO QAM 11/25/20 06/10/21 06/10/21 iron)/5 mL oral elixir lactulose 10 gram/15 mL oral 30 ml PO BID 11/25/20 06/10/21 06/10/21 solution levothyroxine 75 mcg tablet 75 mcg PO DAILYBB 11/25/20 06/10/21 06/10/21 sucralfate 1 gram tablet 1 g PO BID 11/25/20 06/10/21 06/10/21 metoprolol tartrate 25 mg tablet 25 mg PO BID #0 tab 11/28/20 06/10/21 06/10/21 08:30 ondansetron HCl 4 mg tablet 4 mg PO Q6H PRN #6 tab 01/31/21 06/10/21 Unknown (Zofran) Lactobacillus comb 1 cap PO TIDM 06/10/21 06/10/21 06/10/21 no.[id number] 300 million cell-250 mg capsule (Probiotic and Acidophilus) acetaminophen 325 mg tablet 650 mg PO Q6H PRN 06/10/21 06/10/21 Unknown (Tylenol) duloxetine 30 mg capsule,delayed 30 mg PO QAM 06/10/21 06/10/21 06/10/21 release enoxaparin 40 mg/0.4 mL 40 mg SUBCUT QAM 06/10/21 06/10/21 06/10/21 08:30 subcutaneous syringe folic acid 1 mg tablet 1 mg PO QAM 06/10/21 06/10/21 06/10/21 gabapentin 300 mg capsule 300 mg PO TID 06/10/21 06/10/21 06/10/21 14:30 hydromorphone 4 mg tablet 4 mg PO TID 06/10/21 06/10/21 06/10/21 16:30 (Dilaudid) menthol 0.44 %-zinc oxide 20.6 % 1 applic TOPICAL TID 06/10/21 06/10/21 06/09/21 topical ointment (Calmoseptine) nitrofurantoin 100 mg PO BID 06/10/21 06/10/21 Unknown monohydrate/macrocrystals 100 mg capsule saliva stimulant comb. no.3 4 spray MUCOUS MEMBRANE QID 06/10/21 06/10/21 06/10/21 16:30 (Biotene Moisturizing Mouth) therapeutic multivitamin 1 tab PO QAM 06/10/21 06/10/21 06/10/21 (Thera-Tabs) thiamine HCl (vitamin B1) 100 mg 100 mg PO DAILY 06/10/21 06/10/2121 tablet triamcinolone acetonide 0.1 % 1 applic TOPICAL TID 06/10/21 06/10/21 06/10/21 08:30 topical cream zinc sulfate 220 mg capsule 220 mg PO QAM 06/10/21 06/10/21 06/10/21 Active Medications Generic Name Dose Route Start Last Admin Trade Name Lalo PRN Reason Stop Dose Admin Amitriptyline HCl 50 mg 06/11/21 21:00 06/16/21 20:15 Amitriptyline Hcl 50 Mg Tab PO 07/11/21 20:59 50 mg HS JACQUELYN Administration Calamine/Phenol 1 appln 06/11/21 09:00 06/16/21 20:16 Menthol-Zinc Oxide 360 Appln/120 Gm Tube EXT 07/11/21 08:59 1 appln TID JACQUELYN Administration Cetirizine HCl 10 mg 06/11/21 09:00 06/16/21 09:57 Cetirizine Hcl 10 Mg Tablet PO 07/11/21 08:59 10 mg QAM JACQUELYN Administration Cyanocobalamin 1,000 mcg 06/11/21 09:00 06/16/21 09:58 Cyanocobalamin 500 Mcg Tablet (Vitamin B-12) PO 07/11/21 08:59 1,000 mcg QAM JACQUELYN Administration Cyclobenzaprine HCl 10 mg 06/11/21 21:00 06/16/21 20:33 Cyclobenzaprine Hcl 10 Mg Tab PO 07/11/21 20:59 10 mg HS JACQUELYN Administration Duloxetine HCl 30 mg 06/11/21 09:00 06/17/21 09:58 Duloxetine Hcl 30 Mg Cap PO 07/11/21 08:59 30 mg QAM JACQUELYN Administration Ferrous Sulfate 325 mg 06/11/21 09:00 06/16/21 09:51 Ferrous Sulfate 325 Mg Tab PO 07/11/21 08:59 325 mg QAM JACQUELYN Administration Folic Acid 1 mg 06/11/21 09:00 06/17/21 09:59 Folic Acid 1 Mg Tab PO 07/11/21 08:59 1 mg QAM JACQUELYN Administration Gabapentin 300 mg 06/11/21 09:00 06/16/21 20:15 Gabapentin 300 Mg Cap PO 07/11/21 08:59 300 mg TID JACQUELYN Administration Heparin Sodium (Porcine) 5,000 units 06/12/21 09:00 08/15/21 13:27 Heparin Sod 5,000 Unit/0.5 Ml Vial SQ 07/12/21 08:59 5,000 units Q8 JACQUELYN Administration Nafcillin Sodium 1,000 mg/ 105 mls @ 100 mls/hr 06/15/21 10:00 06/17/21 10:32 Dextrose IV 06/29/21 09:59 100 mls/hr Q4H JACQUELYN Administration Albumin Human 12.5 gm in 50 mls @ 50 mls/hr 06/16/21 21:00 06/17/21 10:32 Albumin 25% IV 06/17/21 20:59 50 mls/hr TID JACQUELYN Administration Furosemide 10 mg/ Syringe 1 mls @ 4 mls/min 06/16/21 21:00 06/16/21 21:38 IV 06/17/21 20:59 4 mls/min TID JACQUELYN Administration Lactobacillus Acidoph/Casei/Rhamnos 2 cap 06/11/21 08:00 06/16/21 17:07 Advanced Probiotic 1250 Mg Capsule PO 07/11/21 07:59 2 cap TIDM JACQUELYN Administration Lactulose 20 gm 06/11/21 09:00 06/16/21 20:14 Lactulose Syrup 20 Gm/30 Ml Udc PO 07/11/21 08:59 20 gm BID JACQUELNY Administration Levothyroxine Sodium 75 mcg 06/11/21 06:30 06/17/21 06:06 Levothyroxine Sodium 75 Mcg Tablet PO 07/11/21 06:29 75 mcg DAILYBB JACQUELYN Administration Magnesium Oxide 400 mg 06/11/21 09:00 06/16/21 20:16 Magnesium Oxide 400 Mg Tab PO 07/11/21 08:59 400 mg BID JACQUELYN Administration Multivitamins/Minerals 1 tab 06/11/21 09:00 06/17/21 09:58 Cerovite Adv Formula Tab PO 07/11/21 08:59 1 tab QAM JACQUELYN Administration Ondansetron HCl 4 mg 06/11/21 01:26 06/14/21 10:15 Ondansetron 4 Mg Od Tab PO 4 mg Q6H PRN Administration nausea and vomiting Pantoprazole Sodium 40 mg 06/11/21 09:00 06/16/21 20:14 Pantoprazole 40 Mg Tab PO 07/11/21 08:59 40 mg BID JACQUELYN Administration Rifaximin 550 mg 06/11/21 09:00 06/17/21 10:00 Rifaximin 550 Mg Tablet PO 07/11/21 08:59 550 mg BID JACQUELYN Administration Sucralfate 1 gm 06/11/21 09:00 06/16/21 20:15 Sucralfate 1 Gm Tab PO 07/11/21 08:59 1 gm BID JACQUELYN Administration Thiamine HCl 100 mg 06/11/21 09:00 06/16/21 09:57 Thiamine Hcl 100 Mg Tab PO 07/11/21 08:59 100 mg DAILY JACQUELYN Administration Tramadol HCl 25 - 50 mg 06/16/21 00:38 06/16/21 11:15 Tramadol Hcl 50 Mg Tablet PO 07/16/21 00:37 50 mg Q4H PRN Administration Pain Triamcinolone Acetonide 1 appln 06/11/21 09:00 06/16/21 20:16 Triamcinolone Acet 0.1% Cr 15 Gm Tube TOP 07/11/21 08:59 1 appln TID JACQUELYN Administration Vitamin D 4,000 units 06/11/21 09:00 06/16/21 09:54 Cholecalciferol 1,000 Units 25 Mcg Tab PO 07/11/21 08:59 4,000 units QAM JACQUELYN Administration Zinc Sulfate 220 mg 06/11/21 09:00 06/16/21 09:55 Zinc Sulfate 220 Mg Capsule PO 07/11/21 08:59 220 mg QAM JACQUELYN Administration Past Medical History Medical History Acute on chronic renal failure REJI (acute kidney injury) Anemia, iron deficiency Ascites Bacteremia Cirrhosis Depression Encephalopathy Gastric peptic ulcer Hypothyroidism Neuropathy of both feet On anticoagulant therapy warfarin daily PAF (paroxysmal atrial fibrillation) SVT (supraventricular tachycardia) Past Family History Family History Sister Breast cancer Mother Hypertension Diabetes Other No family history of adverse response to anesthesia Past Surgical History Surgical History History of arthrodesis left leg History of arthroplasty of right shoulder unable to lift arm after sx History of arthroscopy of left knee x2 History of arthroscopy of right knee x7 History of cardiac cath 2012--no stents History of cholecystectomy History of colonoscopy History of esophagogastroduodenoscopy (EGD) History of gastric bypass History of open reduction and internal fixation (ORIF) procedure left tib/fib fx--hardware in place History of surgery on extremity 2017--right leg hardware in place per pt a "fusion of her leg" History of tooth extraction all teeth removed History of total right knee replacement (TKR) 2006 Social History Smoking Status: Never smoker Do You Dip or Chew Tobacco: No Hx Alcohol Use: No Alcohol type: wine and hard liquor alcohol intake frequency: 3 or more drinks per day Hx Substance Use: Yes substance use type: former substance user Physical Exam Vital Signs Last Vital Signs Temp 36.3 C L 06/16/21 23:25 Pulse 76 06/17/21 06:52 Resp 12 06/17/21 06:52 BP 97/68 L 06/17/21 06:52 Pulse Ox 95 06/17/21 06:52 Testing Laboratory Results 06/17/21 05:10 06/17/21 05:10 PT 15.6 Seconds (9.0-12.0) H 06/17/21 05:10 INR 1.6 (0.9-1.1) H 06/17/21 05:10 Urine Color Dark Yellow 06/15/21 00:17 Urine Appearance Turbid (Clear) A 06/15/21 00:17 Urine pH 5.5 (4.5-7.5) 06/15/21 00:17 Ur Specific [place] 1.015 (1.000-1.030) 06/15/21 00:17 Urine Protein Trace (Negative) H 06/15/21 00:17 Urine Glucose (UA) Negative (Negative) 06/15/21 00:17 Urine Ketones Trace (Negative) H 06/15/21 00:17 Urine Nitrite Negative (Negative) 06/15/21 00:17 Ur Leukocyte Esterase 3+ (Negative) H 06/15/21 00:17 Urine WBC (Auto) >30 /hpf (0-5) H 06/15/21 00:17 Urine RBC (Auto) 0-4 /hpf (0-4) 06/15/21 00:17 U Hyaline Cast (Auto) 1-5 /lpf (0-5) 06/15/21 00:17 U Epithel Cells (Auto) >30 /lpf (0-5) H 06/15/21 00:17 Urine Bacteria (Auto) 3+ (Negative) H 06/15/21 00:17 06/15/21 00:17 Urine Culture - Final Urine,Clean Catch Escherichia coli 06/11/21 00:58 Aerobic Blood Culture - Final Blood No growth in Aerobic bottle after 5 days. Anaerobic Blood Culture - Final Staphylococcus aureus 06/15/21 09:47 Aerobic Blood Culture - Preliminary Blood No growth in Aerobic bottle after 24 hours. Anaerobic Blood Culture - Preliminary No growth in Anaerobic bottle after 24 hours. 06/15/21 09:47 Aerobic Blood Culture - Preliminary Blood No growth in Aerobic bottle after 24 hours. Anaerobic Blood Culture - Preliminary No growth in Anaerobic bottle after 24 hours. 06/11/21 00:57 Aerobic Blood Culture - Final Blood No growth in Aerobic bottle after 5 days. Anaerobic Blood Culture - Final No growth in Anaerobic bottle after 5 days. 06/10/21 21:05 Urine Culture - Final Urine,Clean Catch Escherichia coli Klebsiella oxytoca 06/16/21 23:05 POC Glucose 174 H Electrocardiogram Date: 06/11/21 Test Reason : Blood Pressure : / mmHG Vent. Rate : 082 BPM Atrial Rate : 082 BPM P-R Int : 174 ms QRS Dur : 094 ms QT Int : 366 ms P-R-T Axes : 063 043 007 degrees QTc Int : 427 ms Normal sinus rhythm Low voltage QRS Borderline ECG When compared with ECG of 10-JUN-2021 20:48, (unconfirmed) Sinus rhythm has replaced Junctional rhythm Nonspecific T wave abnormality no longer evident in Anterolateral leads Confirmed by Gordy Hansen ([id number]) on 06/11/2021 3:29:57 PM Chest X-Ray Date: 06/10/21 XR chest 1V portable HISTORY: 61 years-old Female ams . Acutely altered mental status COMPARISON: 01/31/2021 TECHNIQUE: AP semierect view of the chest FINDINGS: Cardiomediastinal and hilar silhouettes are within normal limits. No pneumothorax, pleural effusion, airspace consolidation or overt pulmonary edema. Bones of the chest appear grossly intact. Degenerative changes of the left shoulder and spine. Right shoulder arthroplasty with unchanged appearance of the proximal right humerus. IMPRESSION: No acute process. Echocardiogram Date: 10/22/15 EF: 74% Moderate sized pericardial effusion.
[2021-06-17] MEDS: TRIAMCINOLONE ACET 0.1% CR 15 GM TUBE TOP SCH ×3 (11:29→20:35)
[2021-06-17] MEDS ORDERED: LIDOCAINE 2% 2 ML VIAL/AMP(20MG/ML) INFIL ONE (13:29)
[2021-06-17] MEDS ORDERED: PROPOFOL IV EMULSION 10 MG/ML 20 ML VIAL IV ONE (13:29)
--- NOTE | 2021-06-17 13:31 | GI REPORT ---
Patient Name: Cherrie Ascencio Procedure Date: 06/17/2021 12:50 PM Date of : 1960 Admit Type: Inpatient Age: 61 Gender: Female Attending MD: Jefferson Nina DO Procedure: Upper GI endoscopy Providers: Jefferson Nina DO Referring MD: Rommel Hanson Do Indications: Portal hypertension with suspected esophageal varices Medicines: Monitored Anesthesia Care Complications: No immediate complications. Estimated blood loss: Minimal. Estimated Blood Loss: Estimated blood loss was minimal. Procedure: Pre-Anesthesia Assessment: - Prior to the procedure, a History and Physical was performed, and patient medications, allergies and sensitivities were reviewed. The patient's tolerance of previous anesthesia was reviewed. - The risks and benefits of the procedure and the sedation options and risks were discussed with the patient. All questions were answered and informed consent was obtained. - Patient identification and proposed procedure were verified prior to the procedure by the physician, the nurse and the publicity agent. The procedure was verified in the procedure room. - Pre-procedure physical examination revealed no contraindications to sedation. - ASA Grade Assessment: III - A patient with severe systemic disease. - After reviewing the risks and benefits, the patient was deemed in satisfactory condition to undergo the procedure. - The anesthesia plan was to use monitored anesthesia care (MAC). - Immediately prior to administration of medications, the patient was re-assessed for adequacy to receive sedatives. - The heart rate, respiratory rate, oxygen saturations, blood pressure, adequacy of pulmonary ventilation, and response to care were monitored throughout the procedure. - The physical status of the patient was re-assessed after the procedure. After obtaining informed consent, the endoscope was passed under direct vision. Throughout the procedure, the patient's blood pressure, pulse, and oxygen saturations were monitored continuously. The Scope was introduced through the mouth, and advanced to the jejunum. The upper GI endoscopy was accomplished without difficulty. The patient tolerated the procedure well. Findings: There is no endoscopic evidence of varices in the lower third of the esophagus. The Z-line was regular and was found 31 cm from the incisors. Evidence of a gastric bypass was found. A gastric pouch with a small size was found containing food debris. The gastrojejunal anastomosis was characterized by healthy appearing mucosa. This was traversed. The [id number] limb was characterized by healthy appearing mucosa. 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 The gastric body, incisura and gastric antrum were normal. The examined duodenum was normal. Impression: - Z-line regular, 31 cm from the incisors. - Gastric bypass with a small-sized pouch. Gastrojejunal anastomosis characterized by healthy appearing mucosa and a fistula to gastric remanent. - Normal gastric body, incisura and antrum. - Normal examined duodenum. - No specimens collected. Recommendation: - [facility] patient [facility]. - Advance diet as tolerated today. - Repeat upper endoscopy in 1 year for screening purposes. Jefferson Nina D.O. Jefferson Nina, 06/17/2021 1:30:44 PM This report has been signed electronically. Note Initiated On: 06/17/2021 12:50 PM Number of Addenda: 0 I attest to the content of the Intraoperative Record and orders documented therein, exceptions below {[id number]}
--- NOTE | 2021-06-17 13:32 | Communication Note ---
Date of Service: June 17, 2021 Patient underwent upper endoscopy this afternoon. No esophageal varices were noted. The patient did have a prior gastric bypass and has a fistula to her gastric remnant which had been noted on prior studies. The patient will need to have a repeat upper endoscopy in approximately 12 months with her regular GI provider. Please contact our service if there are any additional questions or concerns during the remainder of the patient's hospital admission. GI to sign off.
--- NOTE | 2021-06-17 14:02 | Anesthesiology Progress Note ---
Date of Service June 17, 2021 Anesthesia Post Procedure Vital Signs Vital Signs: Temp Pulse Pulse Pulse Resp BP BP 06/17/21 13:55 86 16 113/76 06/17/21 13:40 86 16 107/66 06/17/21 13:27 86 16 89/66 L 06/17/21 12:13 36.2 C L 85 20 93/64 L 06/17/21 11:35 79 06/17/21 06:52 76 12 97/68 L 06/17/21 04:52 84 15 101/61 06/17/21 03:52 73 13 94/58 L 06/17/21 02:52 77 7 L 92/65 L 06/17/21 01:52 79 14 105/74 06/17/21 01:33 06/17/21 01:00 06/17/21 00:52 89 18 100/81 06/17/21 00:43 80 06/17/21 00:09 82 06/16/21 23:25 36.3 C L 80 20 06/16/21 23:12 84 16 89/57 L 06/16/21 23:02 36.7 C 88 15 93/63 L 06/16/21 22:56 86/59 L 06/16/21 22:50 82 10 L 06/16/21 22:48 36.3 C L 82 14 86/59 L 06/16/21 19:08 36.6 C 69 18 91/61 L 06/16/21 18:50 85 10 L 06/16/21 15:15 86 06/16/21 14:55 36.5 C 80 20 90/61 L Pulse Ox Pulse Ox 06/17/21 13:55 97 06/17/21 13:40 98 06/17/21 13:27 98 06/17/21 12:13 96 06/17/21 11:35 06/17/21 06:52 95 06/17/21 04:52 93 06/17/21 03:52 95 06/17/21 02:52 93 06/17/21 01:52 96 06/17/21 01:33 97 06/17/21 01:00 98 06/17/21 00:52 95 06/17/21 00:43 06/17/21 00:09 06/16/21 23:25 90 06/16/21 23:12 93 06/16/21 23:02 91 06/16/21 22:56 06/16/21 22:50 06/16/21 22:48 90 06/16/21 19:08 96 06/16/21 18:50 06/16/21 15:15 06/16/21 14:55 95 Pain Intensity Right Leg: Pain Intensity: 8 Transfer of Care Handoff Completed per policy Notes Mental Status: alert / awake / arousable and participated in evaluation Patient Amnestic to Procedure: Yes Nausea / Vomiting: adequately controlled Pain: adequately controlled Airway Patency, RR, SpO2: stable & adequate BP & HR: stable & adequate Hydration State: stable & adequate Anesthetic Complications: no major complications apparent and Pt Satisfied with anesthetic care
[2021-06-17] MEDS: traMADol HCL 50 MG TABLET PO PRN (15:27)
--- NOTE | 2021-06-17 15:34 | Cardiology Progress Note ---
Date of Service June 17, 2021 Assessment & Plan (1) Bacteremia: (2) REJI (acute kidney injury): Plan: 41-year-old female pending revision of right total knee replacement (currently immobilized) is evaluated in cardiology follow-up of history of confusion and bacteremia. Patient was apparently confused upon arrival to the hospital. Mental status has thus improved on antibiotic therapy. She has a history of recurrent urinary tract infections, and was noted to have 1/4 blood cultures positive for sensitive staph aureus. She underwent EGD earlier today given her history of hepatic cirrhosis from DAVIS/MICHELLE. There were no esophageal varices noted. The patient did have a prior gastric bypass and has a fistula to her gastric remnant which had been noted on prior studies. Will plan on LUL, images to be obtained from mid esophagus. Anesthesia consult placed. Continue to monitor renal function. SQ heparin on hold. Does not need to be held for LUL. I will resume. Discussed with Dr Hanson. Pt considered at high risk for VTE (despite her liver disease) as her right leg is immobilized. Admission and Anticipated Discharge Date Admission Date: June 11, 2021 Subjective Patient seen in follow up. Denies cardiac complaint. Afebrile. Telemetry reveals SR in the 80s Review of Systems Review of Systems: All systems reviewed & are unremarkable except as noted in HPI & below Physical Exam Physical Exam: Temp Pulse Resp BP Pulse Ox 36.2 C L 86 16 113/76 97 06/17/21 12:13 06/17/21 13:55 06/17/21 13:55 06/17/21 13:55 06/17/21 13:55 Constitutional: + ill appearing; no acute distress Eyes: PERRL, conjunctivae normal, anicteric sclerae Neck: trachea midline, no thyromegaly Respiratory: normal respiratory effort, lungs clear to auscultation Auscultation: lungs clear to auscultation bilaterally Cardiovascular: RRR, no murmur, no edema 2+ LLE edema. R leg in immobilizer. Gastrointestinal (Abdomen): Percussion/Palpation: abdomen nontender Neurologic: PERRL, EOMI, accommodation nl, no face palsy, no dysarthria Results & Data ([facility]) Vital Signs (Past 12 Hours) Vital Signs Temp Pulse Pulse Pulse Resp BP BP 06/17/21 13:55 86 16 113/76 06/17/21 13:40 86 16 107/66 06/17/21 13:27 86 16 89/66 L 06/17/21 12:13 36.2 C L 85 20 93/64 L 06/17/21 11:35 79 06/17/21 06:52 76 12 97/68 L 06/17/21 04:52 84 15 101/61 06/17/21 03:52 73 13 94/58 L Pulse Ox 06/17/21 13:55 97 06/17/21 13:40 98 06/17/21 13:27 98 06/17/21 12:13 96 06/17/21 11:35 06/17/21 06:52 95 06/17/21 04:52 93 06/17/21 03:52 95 Laboratory Results Cardiac Enzymes 06/16/21 06/17/21 Range/Units 22:58 05:10 AST 23 26 (15-37) U/L Coagulation 06/16/21 06/17/21 Range/Units 23:08 05:10 PT 16.7 H 15.6 H (9.0-12.0) Seconds CBC 06/17/21 Range/Units 05:10 WBC 9.24 (4.8-10.8) K/uL RBC 2.92 L (4.2-5.4) M/uL Hgb 8.3 L (12.0-16.0) g/dL Hct 24.3 L (37-47) % Plt Count 185 (130-400) K/uL Comprehensive Metabolic Panel 06/16/21 06/17/21 Range/Units 22:58 05:10 Sodium 132 L 129 L (136-145) mmol/L Potassium 3.7 3.9 (3.5-5.1) mmol/L Chloride 104 105 (98-107) mmol/L Carbon Dioxide 16 L 16 L (21-32) mmol/L BUN 23 H 23 H (7-18) mg/dl Creatinine 2.93 H 2.96 H (0.6-1.2) mg/dl Glucose 163 H 138 H (70-99) mg/dl Calcium 7.7 L 7.8 L (8.5-10.1) mg/dl Direct Bilirubin 0.5 H (0-0.2) mg/dl AST 23 26 (15-37) U/L ALT 27 30 (12-78) U/L Alkaline Phosphatase 158 H 167 H (45-117) U/L Total Protein 4.3 L 5.2 L D (6.4-8.2) gm/dl Albumin 2.0 L 2.5 L (3.4-5.0) gm/dl Intake and Output 06/17/21 06/17/21 06/17/21 06:59 14:59 22:59 Intake Total 310 / 1390 155 / 155 Output Total 300 / 530 Balance 155 / 155 Intake: IV 310 / 875 155 / 155 Albumin 25% 12.5 gm In 50 ml @ 100 / 150 50 / 50 50 mls/hr IV TID [facility] Rx#: [id number] Nafcillin Sodium 1,000 mg In 210 / 725 105 / 105 Dextrose 5% 100 ml @ 100 mls/hr IV Q4H [facility] Rx#:[id number] Output: Urine Amount (Catheter) 300 / 530 [place]/Indwelling 300 / 530 Other: Weight 90.1 kg 90.1 kg Weight Measurement Method Built in [facility] Patient Weight 06/18/21 06:59 Weight 90.1 kg
[2021-06-17 18:33] LABS: Appearance Urine Cloudy (Clear); Bacteria Urine Automated Negative (Negative); Bilirubin Urine Negative (Negative); Blood Urine 1+ (Negative); Color Urine Dark Yellow; Epithelial Cell Urine Auto >30 /lpf (0-5); Glucose Urine UA Negative (Negative); Ketones Urine Trace (Negative); Leukocyte Esterase Urine 3+ (Negative); Nitrite Urine Negative (Negative); Protein Urine 1+ (Negative); Specific Gravity Urine 1.014 (1.000-1.030); Urobilinogen Urine Negative (Negative); WBC Urine Automated >30 /hpf (0-5)
[2021-06-17] MEDS: HEPARIN SOD 5,000 UNIT/0.5 ML VIAL SQ SCH (21:54)
[2021-06-18] MEDS: NAFCILLIN SODIUM 1,000 MG in DEXTROSE 5% 100 ML IV SCH ×6 (02:45→22:03)
[2021-06-18] MEDS: ONDANSETRON 4 MG OD TAB PO PRN (03:50)
[2021-06-18] MEDS: ACETAMINOPHEN 325 MG TAB PO PRN ×2 (03:50→16:00)
[2021-06-18] MEDS: LEVOTHYROXINE SODIUM 75 MCG TABLET PO SCH (05:50)
[2021-06-18] MEDS: HEPARIN SOD 5,000 UNIT/0.5 ML VIAL SQ SCH ×3 (05:50→22:02)
[2021-06-18 06:00] LABS: Albumin Level 2.4 gm/dl (3.4-5.0); BUN Creatinine Ratio 7.4 (10-20); Calcium 7.9 mg/dl (8.5-10.1); Est GFR (African American) 16.9 ml/min; Est GFR (Non-African American) 14.5 ml/min; Potassium 4.1 mmol/L (3.5-5.1)
[2021-06-18 06:11] LABS: Albumin Globulin Ratio 1.1 (0.9-2); Bilirubin,Total 1.8 mg/dl (0.2-1); Globulin 2.2 gm/dl (2.5-4.0); Total Protein 4.6 gm/dl (6.4-8.2)
--- NOTE | 2021-06-18 07:48 | Anesthesiology Consultation ---
Date of Service June 18, 2021 Assessment & Plan Chart Review Chart Review: Acceptable Risk for Surgery Consults Requested none ASA ASA3 Proposed Anesthesia Anesthesia Type: MAC Risk / Benefits Reviewed With: PT / POA / Parent / Guardian, Accepts Plan and Informed Consent Obtained History Surgery Operation Date: 06/17/21 16:45 Proposed Procedures p Esophagogastroduodenoscopy Dr Maico Nina DO Operation Date: 06/18/21 08:00 Proposed Procedures p Transesophageal Echo - Sina Gil, Height/Weight Height: 5 ft 4 in Weight: 93.1 kg Allergies Allergy/AdvReac Type Severity Reaction Status Date / Time cefaclor Allergy Intermediate Swelling Verified 03/11/21 22:25 oxycodone Allergy Intermediate HIVES Verified 03/11/21 22:25 amoxicillin Allergy Mild Nausea Verified 03/11/21 22:25 ceftriaxone [From Rocephin] Allergy Rash Verified 03/11/21 22:25 metronidazole [From Flagyl] Allergy Rash Verified 03/11/21 22:25 Medications Home Medications Medication Instructions Recorded Confirmed Last Taken cyanocobalamin (vitamin B-12) 1,000 mcg PO QAM 08/22/18 06/10/21 06/10/21 1,000 mcg tablet (Vitamin B-12) cholecalciferol (vitamin D3) 50 4,000 unit PO QAM 10/03/18 06/10/21 06/10/21 mcg (2,000 unit) capsule (Vitamin D3) rifaximin 550 mg tablet (Xifaxan) 550 mg PO BID 10/03/18 06/10/21 06/10/21 pantoprazole 40 mg tablet,delayed 40 mg PO BID 07/19/19 06/10/21 06/10/21 08:30 release (Protonix) cetirizine 10 mg tablet (Zyrtec) 10 mg PO QAM 04/05/20 06/10/21 06/10/21 amitriptyline 50 mg tablet 50 mg PO HS 09/02/20 06/10/21 06/09/21 cyclobenzaprine 10 mg tablet 10 mg PO HS 09/02/20 06/10/21 06/09/21 ferrous sulfate 220 mg (44 mg 220 mg PO QAM 11/25/20 06/10/21 06/10/21 iron)/5 mL oral elixir lactulose 10 gram/15 mL oral 30 ml PO BID 11/25/20 06/10/21 06/10/21 solution levothyroxine 75 mcg tablet 75 mcg PO DAILYBB 11/25/20 06/10/21 06/10/21 sucralfate 1 gram tablet 1 g PO BID 11/25/20 06/10/21 06/10/21 metoprolol tartrate 25 mg tablet 25 mg PO BID #0 tab 11/28/20 06/10/21 06/10/21 08:30 ondansetron HCl 4 mg tablet 4 mg PO Q6H PRN #6 tab 01/31/21 06/10/21 Unknown (Zofran) Lactobacillus comb 1 cap PO TIDM 06/10/21 06/10/21 06/10/21 no.7-[id number] 300 million cell-250 mg capsule (Probiotic and Acidophilus) acetaminophen 325 mg tablet 650 mg PO Q6H PRN 06/10/21 06/10/21 Unknown (Tylenol) duloxetine 30 mg capsule,delayed 30 mg PO QAM 06/10/21 06/10/21 06/10/21 release enoxaparin 40 mg/0.4 mL 40 mg SUBCUT QAM 06/10/21 06/10/21 06/10/21 08:30 subcutaneous syringe folic acid 1 mg tablet 1 mg PO QAM 06/10/21 06/10/21 06/10/21 gabapentin 300 mg capsule 300 mg PO TID 06/10/21 06/10/21 06/10/21 14:30 hydromorphone 4 mg tablet 4 mg PO TID 06/10/21 06/10/21 06/10/21 16:30 (Dilaudid) menthol 0.44 %-zinc oxide 20.6 % 1 applic TOPICAL TID 06/10/21 06/10/21 06/09/21 topical ointment (Calmoseptine) nitrofurantoin 100 mg PO BID 06/10/21 06/10/21 Unknown monohydrate/macrocrystals 100 mg capsule saliva stimulant comb. no.3 4 spray MUCOUS MEMBRANE QID 06/10/21 06/10/21 06/10/21 16:30 (Biotene Moisturizing Mouth) therapeutic multivitamin 1 tab PO QAM 06/10/21 06/10/2121 (Thera-Tabs) thiamine HCl (vitamin B1) 100 mg 100 mg PO DAILY 06/10/21 06/10/21 06/10/21 tablet triamcinolone acetonide 0.1 % 1 applic TOPICAL TID 06/10/21 06/10/21 06/10/21 08:30 topical cream zinc sulfate 220 mg capsule 220 mg PO QAM 06/10/21 06/10/21 06/10/21 Active Medications Generic Name Dose Route Start Last Admin Trade Name Freq PRN Reason Stop Dose Admin Acetaminophen 325 mg 06/17/21 01:33 06/18/21 03:50 Acetaminophen 325 Mg Tab PO 07/17/21 01:32 325 mg Q6H PRN Administration Mild Pain Amitriptyline HCl 50 mg 06/11/21 21:00 06/16/21 20:15 Amitriptyline Hcl 50 Mg Tab PO 07/11/21 20:59 50 mg HS JACQUELYN Administration Calamine/Phenol 1 appln 06/11/21 09:00 06/17/21 20:36 Menthol-Zinc Oxide 360 Appln/120 Gm Tube EXT 07/11/21 08:59 1 appln TID JACQUELYN Administration Cetirizine HCl 10 mg 06/11/21 09:00 06/17/21 14:27 Cetirizine Hcl 10 Mg Tablet PO 07/11/21 08:59 10 mg QAM JACQUELYN Administration Cyanocobalamin 1,000 mcg 06/11/21 09:00 06/17/21 14:29 Cyanocobalamin 500 Mcg Tablet (Vitamin B-12) PO 07/11/21 08:59 1,000 mcg QAM JACQUELYN Administration Cyclobenzaprine HCl 10 mg 06/11/21 21:00 06/16/21 20:33 Cyclobenzaprine Hcl 10 Mg Tab PO 07/11/21 20:59 10 mg HS JACQUELYN Administration Duloxetine HCl 30 mg 06/11/21 09:00 06/17/21 09:58 Duloxetine Hcl 30 Mg Cap PO 07/11/21 08:59 30 mg QAM JACQUELYN Administration Ferrous Sulfate 325 mg 06/11/21 09:00 06/17/21 14:26 Ferrous Sulfate 325 Mg Tab PO 07/11/21 08:59 325 mg QAM JACQUELYN Administration Folic Acid 1 mg 06/11/21 09:00 06/17/21 09:59 Folic Acid 1 Mg Tab PO 07/11/21 08:59 1 mg QAM JACQUELYN Administration Gabapentin 300 mg 06/11/21 09:00 06/16/21 20:15 Gabapentin 300 Mg Cap PO 07/11/21 08:59 300 mg TID JACQUELYN Administration Heparin Sodium (Porcine) 5,000 units 06/12/21 09:00 06/18/21 05:50 Heparin Sod 5,000 Unit/0.5 Ml Vial SQ 07/12/21 08:59 5,000 units Q8 JACQUELYN Administration Nafcillin Sodium 1,000 mg/ 105 mls @ 100 mls/hr 06/15/21 10:00 06/18/21 06:24 Dextrose IV 06/29/21 09:59 Infused Q4H JACQUELYN Infusion Lactobacillus Acidoph/Casei/Rhamnos 2 cap 06/11/21 08:00 06/17/21 17:32 Advanced Probiotic 1250 Mg Capsule PO 07/11/21 07:59 2 cap TIDM JACQUELYN Administration Lactulose 20 gm 06/11/21 09:00 06/17/21 20:33 Lactulose Syrup 20 Gm/30 Ml Udc PO 07/11/21 08:59 20 gm BID JACQUELYN Administration Levothyroxine Sodium 75 mcg 06/11/21 06:30 06/18/21 05:50 Levothyroxine Sodium 75 Mcg Tablet PO 07/11/21 06:29 75 mcg DAILYBB JACQUELYN Administration Magnesium Oxide 400 mg 06/11/21 09:00 06/17/21 20:42 Magnesium Oxide 400 Mg Tab PO 07/11/21 08:59 400 mg BID JACQUELYN Administration Multivitamins/Minerals 1 tab 06/11/21 09:00 06/17/21 09:58 Cerovite Adv Formula Tab PO 07/11/21 08:59 1 tab QAM JACQUELYN Administration Ondansetron HCl 4 mg 06/11/21 01:26 06/18/21 03:50 Ondansetron 4 Mg Od Tab PO 4 mg Q6H PRN Administration nausea and vomiting Pantoprazole Sodium 40 mg 06/11/21 09:00 06/17/21 20:38 Pantoprazole 40 Mg Tab PO 07/11/21 08:59 40 mg BID JACQUELYN Administration Rifaximin 550 mg 06/11/21 09:00 06/17/21 20:39 Rifaximin 550 Mg Tablet PO 07/11/21 08:59 550 mg BID JACQUELYN Administration Sucralfate 1 gm 06/11/21 09:00 06/17/21 20:38 Sucralfate 1 Gm Tab PO 07/11/21 08:59 1 gm BID JACQUELYN Administration Thiamine HCl 100 mg 06/11/21 09:00 06/17/21 14:28 Thiamine Hcl 100 Mg Tab PO 07/11/21 08:59 100 mg DAILY JACQUELYN Administration Tramadol HCl 25 - 50 mg 06/16/21 00:38 06/17/21 15:27 Tramadol Hcl 50 Mg Tablet PO 07/16/21 00:37 50 mg Q4H PRN Administration Pain Triamcinolone Acetonide 1 appln 06/11/21 09:00 06/17/21 20:35 Triamcinolone Acet 0.1% Cr 15 Gm Tube TOP 07/11/21 08:59 1 appln TID JACQUELYN Administration Vitamin D 4,000 units 06/11/21 09:00 06/17/21 14:26 Cholecalciferol 1,000 Units 25 Mcg Tab PO 07/11/21 08:59 4,000 units QAM JACQUELYN Administration Zinc Sulfate 220 mg 06/11/21 09:00 06/17/21 14:28 Zinc Sulfate 220 Mg Capsule PO 07/11/21 08:59 220 mg QAM JACQUELYN Administration NPO Date Last Intake of Fluids: 06/18/21 Time Last Intake of Fluids: 00:00 Last Intake of Fluids Comment: sip to wet mouth Date Last Intake of Solids: 06/18/21 Time Last Intake of Solids: 00:00 Past Medical History Medical History Acute on chronic renal failure REJI (acute kidney injury) Anemia, iron deficiency Ascites Bacteremia Cirrhosis Depression Encephalopathy Gastric peptic ulcer Hypothyroidism Neuropathy of both feet On anticoagulant therapy warfarin daily PAF (paroxysmal atrial fibrillation) SVT (supraventricular tachycardia) Exercise / Class Metabolic Activity IV < 2 Limit ADL/Bedbound Past Family History Family History Sister Breast cancer Mother Hypertension Diabetes Other No family history of adverse response to anesthesia Past Surgical History Surgical History History of arthrodesis left leg History of arthroplasty of right shoulder unable to lift arm after sx History of arthroscopy of left knee x2 History of arthroscopy of right knee x7 History of cardiac cath 2011--no stents History of cholecystectomy History of colonoscopy History of esophagogastroduodenoscopy (EGD) History of gastric bypass History of open reduction and internal fixation (ORIF) procedure left tib/fib fx--hardware in place History of surgery on extremity 2016--right leg hardware in place per pt a "fusion of her leg" History of tooth extraction all teeth removed History of total right knee replacement (TKR) 2006 Past Anesthesia History No Hx of Anesthesia Complications and No Family Hx of Anesthesia Complications History of PONV No Hx of PONV and No Hx of Motion Sickness Social History Smoking Status: Never smoker Do You Dip or Chew Tobacco: No Hx Alcohol Use: Yes Alcohol type: wine and hard liquor alcohol intake frequency: 3 or more drinks per day Hx Substance Use: Yes substance use type: former substance user Physical Exam Vital Signs Last Vital Signs Temp 36.6 C 06/18/21 00:04 Pulse 78 06/18/21 00:05 Resp 16 06/18/21 00:04 BP 99/75 L 06/18/21 00:04 Pulse Ox 96 06/18/21 01:33 Constitutional + lethargic ENMT Mouth: + edentulous and + small oral opening Thyromental Distance: > or= 3.5 Finger Breadths Mallampati Class: III Neck normal visual inspection and trachea midline; neck extension not limited Respiratory normal respiratory effort; no respiratory distress Auscultation: lungs clear to auscultation bilaterally; no crackles, no rhonchi and no wheezes Cardiovascular Rate/Rhythm: regular rate and regular rhythm Heart Sounds: no gallop, no murmur and no cardiac rub Neurologic moves all extremities and awake Psychiatric Orientation: alert Testing Laboratory Results 06/17/21 05:10 06/18/21 05:22 PT 15.6 Seconds (9.0-12.0) H 06/17/21 05:10 INR 1.6 (0.9-1.1) H 06/17/21 05:10 Urine Color Dark Yellow 06/17/21 17:55 Urine Appearance Cloudy (Clear) A 06/17/21 17:55 Urine pH 5.0 (4.5-7.5) 06/17/21 17:55 Ur Specific [place] 1.014 (1.000-1.030) 06/17/21 17:55 Urine Protein 1+ (Negative) H 06/17/21 17:55 Urine Glucose (UA) Negative (Negative) 06/17/21 17:55 Urine Ketones Trace (Negative) H 06/17/21 17:55 Urine Nitrite Negative (Negative) 06/17/21 17:55 Ur Leukocyte Esterase 3+ (Negative) H 06/17/21 17:55 Urine WBC (Auto) >30 /hpf (0-5) H 06/17/21 17:55 Urine RBC (Auto) 5-10 /hpf (0-4) H 06/17/21 17:55 U Hyaline Cast (Auto) 1-5 /lpf (0-5) 06/17/21 17:55 U Epithel Cells (Auto) >30 /lpf (0-5) H 06/17/21 17:55 Urine Bacteria (Auto) Negative (Negative) 06/17/21 17:55 06/15/21 09:47 Aerobic Blood Culture - Preliminary Blood No growth in Aerobic bottle after 48 hours. Anaerobic Blood Culture - Preliminary No growth in Anaerobic bottle after 48 hours. 06/15/21 09:47 Aerobic Blood Culture - Preliminary Blood No growth in Aerobic bottle after 48 hours. Anaerobic Blood Culture - Preliminary No growth in Anaerobic bottle after 48 hours. 06/15/21 00:17 Urine Culture - Final Urine,Clean Catch Escherichia coli 06/11/21 00:58 Aerobic Blood Culture - Final Blood No growth in Aerobic bottle after 5 days. Anaerobic Blood Culture - Final Staphylococcus aureus 06/11/21 00:57 Aerobic Blood Culture - Final Blood No growth in Aerobic bottle after 5 days. Anaerobic Blood Culture - Final No growth in Anaerobic bottle after 5 days. 06/10/21 21:05 Urine Culture - Final Urine,Clean Catch Escherichia coli Klebsiella oxytoca Electrocardiogram Date: 06/11/21 Test Reason : Blood Pressure : / mmHG Vent. Rate : 082 BPM Atrial Rate : 082 BPM P-R Int : 174 ms QRS Dur : 094 ms QT Int : 366 ms P-R-T Axes : 063 043 007 degrees QTc Int : 427 ms Normal sinus rhythm Low voltage QRS Borderline ECG When compared with ECG of 10-JUN-2021 20:48, (unconfirmed) Sinus rhythm has replaced Junctional rhythm Nonspecific T wave abnormality no longer evident in Anterolateral leads Confirmed by Gordy Hansen ([id number]) on 06/11/2021 3:29:57 PM Chest X-Ray Date: 06/10/21 XR chest 1V portable HISTORY: 61 years-old Female ams . Acutely altered mental status COMPARISON: 01/31/2021 TECHNIQUE: AP semierect view of the chest FINDINGS: Cardiomediastinal and hilar silhouettes are within normal limits. No pneumothorax, pleural effusion, airspace consolidation or overt pulmonary edema. Bones of the chest appear grossly intact. Degenerative changes of the left shoulder and spine. Right shoulder arthroplasty with unchanged appearance of the proximal right humerus. IMPRESSION: No acute process. Echocardiogram Date: 10/22/15 EF: 74% Moderate sized pericardial effusion.
--- NOTE | 2021-06-18 08:01 | History & Physical Bridge Note ---
Date of Service June 18, 2021 History & Physical Bridge Note I have examined the patient, reviewed the History & Physical and in the interval since the performance of the History & Physical I have noted the following changes of clinical significance: no changes noted.Creatinine 3.3 , up from 2.96. Relative hypotension noted SBP 80s to 90s overnight. Patient afebrile. Normal oxygen saturations. Proceed with LLU.
[2021-06-18] MEDS ORDERED: CANNULA ONE (08:10)
[2021-06-18] MEDS ORDERED: PROPOFOL IV EMULSION 10 MG/ML 20 ML VIAL IV ONE (08:32)
[2021-06-18] MEDS ORDERED: PHENYLEPHRINE HCL 10 MG/ML VIAL ONE (08:32)
--- NOTE | 2021-06-18 08:44 | Post Operative Brief Note ---
Cardiology Brief Post Op Date of Surgery June 18, 2021 Pre & Post Diagnosis Preprocedure diagnosis: Bacteremia, evaluate for endocarditis Post procedure diagnosis: no valvular vegetation Operation Date: 06/18/21 08:00 Procedure LUL: After informed consent was obtained and a timeout was performed, the patient was sedated with the assistance of the anesthesia service receiving a total fo 30 mg of IV propofol and 100 mcg of phenylephrine for blood pressure support. 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 The biventricular systolic function was normal. No valvular pathology was observed. Ascites noted. Hosiery Pairer Sina Gil DO [place] Cooper Sofya Leroy, RCS Estimated Blood Loss 0 Findings Consistent with Post-Op Diagnosis Anesthesia Type MAC Complications None
--- NOTE | 2021-06-18 08:46 | Anesthesiology Progress Note ---
Date of Service June 18, 2021 Anesthesia Post Procedure Vital Signs Vital Signs: Temp Pulse Pulse Pulse Pulse Resp BP 06/18/21 08:30 90 16 81/56 L 06/18/21 07:15 88 18 86/48 L 06/18/21 07:10 36.7 C 90 18 85/49 L 06/18/21 01:33 06/18/21 00:05 78 06/18/21 00:04 36.6 C 94 H 16 99/75 L 06/17/21 20:32 36.8 C 98 H 16 102/69 06/17/21 16:00 128 H 06/17/21 13:55 86 16 113/76 06/17/21 13:40 86 16 107/66 06/17/21 13:27 86 16 89/66 L 06/17/21 12:13 36.2 C L 85 20 93/64 L 06/17/21 11:35 79 Pulse Ox Pulse Ox 06/18/21 08:30 97 06/18/21 07:15 95 06/18/21 07:10 88 L 06/18/21 01:33 96 06/18/21 00:05 06/18/21 00:04 95 06/17/21 20:32 94 06/17/21 16:00 06/17/21 13:55 97 06/17/21 13:40 98 06/17/21 13:27 98 06/17/21 12:13 96 06/17/21 11:35 Pain Intensity Right Leg: Pain Intensity: 0 Transfer of Care Handoff Completed per policy Notes Mental Status: alert / awake / arousable and participated in evaluation Patient Amnestic to Procedure: Yes Nausea / Vomiting: adequately controlled Pain: adequately controlled Airway Patency, RR, SpO2: stable & adequate BP & HR: stable & adequate Hydration State: stable & adequate Anesthetic Complications: no major complications apparent and Pt Satisfied with anesthetic care
--- NOTE | 2021-06-18 08:56 | Cardiology Progress Note ---
Date of Service June 18, 2021 Assessment & Plan (1) Bacteremia: Plan: LUL performed. No valvular pathology. Normal biventricular systolic function. Admission and Anticipated Discharge Date Admission Date: June 11, 2021 Subjective Patient seen prior to, during and post LUL. Physical Exam Physical Exam: Temp Pulse Resp BP Pulse Ox 36.7 C 88 16 83/56 L 96 06/18/21 07:10 06/18/21 08:45 06/18/21 08:45 06/18/21 08:45 06/18/21 08:45 Constitutional: + ill appearing; no acute distress Cardiovascular: Rate/Rhythm: regular rate Heart Sounds: normal S1 and normal S2; no murmur Gastrointestinal (Abdomen): Inspection/Auscultation: + abdomen distended and + abdominal edema Results & Data ([facility] Vital Signs (Past 12 Hours) Vital Signs Temp Pulse Pulse Pulse Resp BP Pulse Ox 06/18/21 08:45 88 16 83/56 L 96 06/18/21 08:30 90 16 81/56 L 97 06/18/21 07:15 88 18 86/48 L 95 06/18/21 07:10 36.7 C 90 18 85/49 L 88 L 06/18/21 01:33 06/18/21 00:05 78 06/18/21 00:04 36.6 C 94 H 16 99/75 L 95 Pulse Ox 06/18/21 08:45 06/18/21 08:30 06/18/21 07:15 06/18/21 07:10 06/18/21 01:33 96 06/18/21 00:05 06/18/21 00:04 Laboratory Results Cardiac Enzymes 06/18/21 Range/Units 05:22 AST 27 (15-37) U/L Comprehensive Metabolic Panel 06/18/21 Range/Units 05:22 Sodium 130 L (136-145) mmol/L Potassium 4.1 (3.5-5.1) mmol/L Chloride 105 (98-107) mmol/L Carbon Dioxide 16 L (21-32) mmol/L BUN 24 H (7-18) mg/dl Creatinine 3.30 H D (0.6-1.2) mg/dl Glucose 134 H (70-99) mg/dl Calcium 7.9 L (8.5-10.1) mg/dl AST 27 (15-37) U/L ALT 26 (12-78) U/L Alkaline Phosphatase 148 H (45-117) U/L Total Protein 4.6 L (6.4-8.2) gm/dl Albumin 2.4 L (3.4-5.0) gm/dl Intake and Output 06/17/21 06/18/21 06/18/21 22:59 06:59 14:59 Intake Total 605 / 970 210 / 970 Output Total 100 / 300 200 / 300 Balance 505 / 670 Intake: IV 365 / 730 210 / 730 Albumin 25% 12.5 gm In 50 ml @ 50 / 100 50 mls/hr IV TID [facility] Rx#: [id number] Nafcillin Sodium 1,000 mg In 315 / 630 210 / 630 Dextrose 5% 100 ml @ 100 mls/hr IV Q4H [facility] Rx#:[id number] Oral 240 / 240 Output: Urine Amount (Catheter) 100 / 300 200 / 300 Medina/Indwelling 100 / 300 200 / 300 Other: Weight 93.1 kg 93.1 kg Weight Measurement Method Built in [facility] Patient Weight 06/19/21 06:59 Weight 93.1 kg
[2021-06-18] MEDS: ADVANCED PROBIOTIC 1250 MG CAPSULE PO SCH ×3 (10:47→16:25)
[2021-06-18] MEDS: CYANOCOBALAMIN 500 MCG TABLET (VITAMIN B-12) PO SCH (10:50)
[2021-06-18] MEDS: SUCRALFATE 1 GM TAB PO SCH ×2 (10:50→21:57)
[2021-06-18] MEDS: LACTULOSE SYRUP 20 GM/30 ML UDC PO SCH ×3 (10:50→22:58)
[2021-06-18] MEDS: CHOLECALCIFEROL 1,000 UNITS 25 MCG TAB PO SCH (10:51)
[2021-06-18] MEDS: THIAMINE HCL 100 MG TAB PO SCH (10:51)
[2021-06-18] MEDS: ZINC SULFATE 220 MG CAPSULE PO SCH (10:51)
[2021-06-18] MEDS: CETIRIZINE HCL 10 MG TABLET PO SCH (10:51)
[2021-06-18] MEDS: FOLIC ACID 1 MG TAB PO SCH (10:52)
[2021-06-18] MEDS: rifAXIMin 550 MG TABLET PO SCH ×2 (10:52→21:57)
[2021-06-18] MEDS: DULoxetine HCL 30 MG CAP PO SCH (10:52)
--- NOTE | 2021-06-18 10:52 | Hospitalist Progress Note ---
Date of Service June 18, 2021 Assessment & Plan (1) Encephalopathy: (2) Bacteremia: Plan: 61-year-old female with PMH of hypothyroidism, PAF, SVT, cirrhosis, obesity status post gastric bypass, gastrogastric fistula, CKD stage III, septic arthritis, infection of prosthetic knee joint, back pain, chronic pain syndrome, anemia, anastomotic ulcer status post gastric bypass, C. difficile, depression, pseudogout, GI bleed, and narcotic drug use was sent to the ED 06/10 from [facility] for concerns of confusion. [facility] staff were suspicious that the patient's family is giving her cannabinoid therapy [urine drug screen positive for opiates at presentation -she also takes prescribed pain medications]. #. Acute encephalopathy #. Bacteremia -Staph aureus #. UTI Admitting CXR, head CT revealed no acute process. Multifactorial, likely from UTI versus acute on chronic kidney disease versus analgesics Patient had been afebrile in the hospital. 06/10 urine culture positive for E. coli and Klebsiella oxytoca. 06/11 blood culture positive for Staph aureus, follow-up with the final result. 06/15 repeat blood culture and urine culture sent. ID on board: Patient received daptomycin and aztreonam until 06/14 since admission when it was stopped due to blood culture being nonconclusive. Patient started on nafcillin 06/15. Patient does have renal and hepatic compromise, and hence keep an eye for interstitial nephritis/bone marrow suppression/neurotoxicity/elevated LFTs/cholestasis. In such event either decrease the dose by 50% or changed to daptomycin. Until before identification of GPC, it was deemed as contaminant and hence Dapto was stopped per ID. Identified as a staph aureus on 06/15 a.m.contacted ID again via [employer] textrecommended nafcillin or daptomycin for 14 days for now [she has history of reaction to cephalosporin, has tolerated certain cephalosporins in the past per pharmacyhence, trial of cephalosporin with close monitoring if needed could be a possibility] but if there is ongoing bacteremia/test positive for infective endocarditis we might need to consider ID re-evaluation of the patient and make recommendation. Cardiology on board: Contacted cardiology LUL today negative for IE Continue with nafcillin, continue to monitor. Likely need ID reevaluation after LUL. #. History of alc liver cirrhosis and ascites GI on board: Plan for EGD tomorrow, to be coordinated with LUL. Possible paracentesis soon, SC heparin on board #. Acute on chronic kidney disease not making progress Nephro on board: Medina placed, likely needs HD c BP support #. Anemia Hemoglobin at presentation 9.4, now 8.3. multifactorial Ferritin level elevated with elevated transferrin saturation, low iron and low TIBC, FOBT negative. Vitamin B12 and folate not deficient fairly stable #. Analgesics/chronic pain syndrome per H&P, SNF suspicious regarding family members bringing in additional pain medications/narcotics to patient per patient, she is receiving excessive Dilaudid at SNF Urine Drug Screen: Positive for opiates. Patient takes prescribed pain medications. hold narcotics for now monitor Avoid NSAIDs #. Right knee s/p antibiotic spacer 04/02/2021 -- follows with Brandin Dill as per last ff up visit Brandin Serrano 06/10/2021, treat UTI first then ff up 07/01 for possible aspiration, revision -- [facility] does not feel patient has infected R knee at this time -- monitor closely #. BL Leg edema -- Doppler US: negative #. Alcoholic cirrhosis of the liver without ascites: Will continue Xifaxan and lactulose. Not on any diuretics. -- no ascites on US #. Continue home medication for depression and hypertension. Deep venous thrombosis prophylaxis: Heparin SC Disposition anticipate return to SNF when medically stable. HD to begin soon, When able PT/OT. Patient wants different mcc - will have to go to same NH per CM, then she can change NH from there. Add Invanz to cover Urine ROS-No Headache, No Visual Changes, No Nausea, No Vomiting, No Fever, No Chills, No Neck Pain or Stiffness, No Chest Pain, No Palpitations, No SOB, No THURMAN, No Cough, No Sputum, No Wheezing, No Abdominal Pain, No Diarrhea, No Hematemesis, No Hemoptysis, No Unexpected Weight Loss, No Flank pain, No Melena, No Hematochezia, No Frequency, No Urgency, No Burning, No Hematuria, No Rashes, No Diaphoresis. Appetite is Normal Physical Exam Gen-AAO x 3, NAD, Afebrile, Weak Head-NCAT, EOMI, PERRLA, Anicteric Sclera, No Posterior Pharyngeal Erythema Neck-Supple, No JVD, No Thyromegaly, No Masses, No LAD, No Bruits Lungs-Clear to Auscultation Bilaterally, No Rales, No Rhonchi, No Wheezing, No Crepitus Chest-No S4, +S1, +S2, No S3, No Murmurs, No Rubs, No Gallops, No Ectopy Abdomen-Soft, Bowel Sounds Present, Non Tender, Non Distended, No Hepatomegaly, No Splenomegaly, No Palpable Masses, No Rebound, No Rigidity, No Guarding Musculoskeletal-Full Range of Motion Bilaterally, No CVAT Extremities-No Cyanosis, No Clubbing, 3+Edema Nuero-Cranial Nerves II-XII grossly intact, Motor WNL, DTRs WNL, Non Focal Psych-Flat Admission and Anticipated Discharge Date Admission Date: June 11, 2021 Results & Data Results & Data ([facility]) Vital Signs (Past 12 Hours) Vital Signs Temp Pulse Pulse Pulse Resp BP BP 06/18/21 09:04 91 H 18 90/61 L 06/18/21 08:54 94 H 19 06/18/21 08:45 88 16 83/56 L 06/18/21 08:30 90 16 81/56 L 06/18/21 07:15 88 18 86/48 L 06/18/21 07:10 36.7 C 90 18 85/49 L 06/18/21 01:33 06/18/21 00:05 78 06/18/21 00:04 36.6 C 94 H 16 99/75 L Pulse Ox Pulse Ox 06/18/21 09:04 95 06/18/21 08:54 99 06/18/21 08:45 96 06/18/21 08:30 97 06/18/21 07:15 95 06/18/21 07:10 88 L 06/18/21 01:33 96 06/18/21 00:05 06/18/21 00:04 95
[2021-06-18] MEDS: PANTOprazole 40 MG TAB PO SCH ×2 (10:53→21:57)
[2021-06-18] MEDS: TRIAMCINOLONE ACET 0.1% CR 15 GM TUBE TOP SCH ×3 (10:54→22:01)
[2021-06-18] MEDS: CEROVITE ADV FORMULA TAB PO SCH (10:55)
[2021-06-18] MEDS: MENTHOL-ZINC OXIDE 360 APPLN/120 GM TUBE EXT SCH ×3 (10:56→22:01)
[2021-06-18] MEDS: MAGNESIUM OXIDE 400 MG TAB PO SCH ×2 (10:57→22:00)
[2021-06-18] MEDS: FERROUS SULFATE 325 MG TAB PO SCH (11:48)
--- NOTE | 2021-06-18 14:04 | Nephrology Progress Note ---
Date of Service June 18, 2021 Assessment & Plan (1) REJI (acute kidney injury): Plan: oligoanuric REJI, worsening further and now stage 3; ischemic ATN from effective intravascular depletion in setting of liver disease > DAVIS cirrhosis c/b ascites, HE; no esophageal varices on EGD though she was using EtOH as recently as 03/2021. currently her renal status is c/b marked volume overload (effusions/ anasarca/loculated ascites as per u/s 816 AM), concern for sepsis in pt w/ hx of prosthetic joint infection, under active tx for staph aureus bacteremia, w/ repeatedly + urine cxs. pt baseline creatinine is 0.9-1.1 as recently as earlier this summer. she does have hx of recurrent REJI (OP creat 1.8 in April on 20 mg daily torsemide which was stopped at that time). also w/ hx of chronic bacteriuria and LUTS. She presented with creatinine of 2 on 06/10, trended down to 1.8, increased to 3 today. Also with UTI on presentation. alexander placed for better I/O tracking. she has completed 5 days aztreonam for presumptive UTI on presentation but urine cxs still +. repeat UACM w/ bacteria, epithelial cells >> could be c/w infection or not. Systolic blood pressure has been in the 90s this admission, lower than previous admissions when it ran consistently in the 1 teens, 120s or higher. >resume 25% albumin 12.5 gm IV w/ lasix 10 mg tid and spironolactone 12.5 mg >> this has not been enough to make her even however let alone start to whittle away at fluid overload >started midodrine 2.5 mg tid and daily ECG < amytriptylene can augment midodrine effects, tendency to arrhythmia. hold parameter in place to stop midodrine if new/worsening arrhythmias ->nutrition consult placed to improve po intake, aime protein; note that protein supplements do not count toward FR ->>>>unfortunately I believe we need to start dialysis to make headway on her fluid status -- likely to need albumin and possibly a pressor to maintain BP while we do HD; risks/benefits/indications/alternatives d/w pt > consent on chart; critical care consulted and to eval pt; plan first 2 hr tx today and daily x 3-4 days >would welcome ID comments on urine >> she has had repeated tx for uti and does not clear it -daily bmp Care coordinated w/ Jeffery Boateng Vilensky Admission and Anticipated Discharge Date Admission Date: June 11, 2021 Subjective had LUL today and EGD yesterday; both unremarkable. continues to gain fluid volume. some mild abd pain. +thirst. 14L positive on the admission (cannot vouch for I/O completeness throughout); for the past 72 hrs w/ strict I/O I can vouch for, she is 2 L positive despite lasix/albumin Review of Systems Review of Systems: All systems reviewed & are unremarkable except as noted in Subjective Physical Exam Constitutional: well developed, + cachectic and + frail appearing Eyes: EOM intact bilaterally ENMT: Ears: no external ear abnormality Nose: no external nose abnormality Mouth: + dry oral mucous membranes and + edentulous Neck: no nuchal rigidity Respiratory: normal respiratory effort Auscultation: + diminished lung sounds on 2L 02 now Cardiovascular: Rate/Rhythm: regular rhythm and + tachycardic Extremities: + edema (3+ BL proximal/dependent; 1+ BLE distal) Gastrointestinal (Abdomen): Inspection/Auscultation: normal bowel sounds Percussion/Palpation: abdomen soft and + abdomen firm; abdomen nontender, no guarding and no ascites Musculoskeletal: Extremities: + limited ROM of extremities (R knee in brace/hardware) and + abnormal strength (generalized weakness) Skin: no rashes, warm and dry Psychiatric: Orientation: alert and oriented x 3 Speech: normal rate/rhythm/volume of speech (a bit soft spoken) Insight: good insight Judgement: good judgement Results & Data ([facility]) Vital Signs (Past 12 Hours) Vital Signs Temp Pulse Pulse Pulse Resp BP BP 06/18/21 11:14 36.5 C 95 H 20 98/62 L 06/18/21 10:14 92 H 12 103/65 06/18/21 09:04 91 H 18 90/61 L 06/18/21 08:54 94 H 19 06/18/21 08:45 88 16 83/56 L 06/18/21 08:30 90 16 81/56 L 06/18/21 07:15 88 18 86/48 L 06/18/21 07:10 36.7 C 90 18 85/49 L Pulse Ox 06/18/21 11:14 96 06/18/21 10:14 93 06/18/21 09:04 95 06/18/21 08:54 99 06/18/21 08:45 96 06/18/21 08:30 97 06/18/21 07:15 95 06/18/21 07:10 88 L Laboratory Results 06/17/21 05:10 06/18/21 05:22 Diagnostic Findings LUL > no valve path; normal biV fnxn, lots of ascites EGD gastric pouch small normal gastric body/jejunum/esophagus; no specimens collected; no varices
[2021-06-18] MEDS ORDERED: ALBUMIN 25% 12.5 GM/50 ML VIAL IV ONE (14:22)
[2021-06-18] MEDS ORDERED: SODIUM CHLORIDE 0.9% 1000ML 1,000 ML IV PRN (14:22)
[2021-06-18] MEDS ORDERED: SPIRONOLACTONE 12.5 MG TAB PO SCH (15:15)
[2021-06-18] MEDS ORDERED: FUROSEMIDE 10 MG in SYRINGE 0 ML IV SCH (15:30)
[2021-06-18 16:24] LABS: Hepatitis B Surface Ab Quant < 3.10 mIU/mL (>or=10mIU/mL Immune); Hepatitis B Surface Antibody Non-Immune
[2021-06-18 16:35] LABS: Hepatitis B Surf Ag Rflx Conf Neg (Neg)
[2021-06-18] MEDS ORDERED: MIDODRINE HCL 2.5 MG TAB PO SCH ×2 (17:00)
--- NOTE | 2021-06-18 19:11 | Critical Care Consultation ---
Date of Consultation June 18, 2021 Assessment & Plan (1) Acute renal failure with oliguria: (2) Volume overload: (3) Hypotension: (4) PAF (paroxysmal atrial fibrillation): 61-year-old female with history of alcoholic liver cirrhosis presenting to the hospital with acute encephalopathy and found to have bacteremia. She is currently in acute renal failure with acidosis. Neurologic: She is lethargic. Continue Xifaxan and lactulose. Ammonia last checked 06/16/2021 less than 10. Pulmonary: Atelectasis in bilateral effusions due to volume overload. Oxygen demands are minimal. Cardiovascular: Hypotension present secondary to her underlying cirrhosis. Sepsis may be contr ibuting as well. Echo reviewed with normal ejection fraction. No valvular concerns. We will place a central line and start the patient on norepinephrine. We will discontinue midodrine once norepinephrine is started. Gastrointestinal: Gastroenterology following. No concern for GI bleeding. She has cirrhosis. Continue Xifaxan and lactulose as noted above. Renal: Oliguric renal failure possibly from hepatorenal syndrome versus ATN. Dialysis is indicated at this point given severe hypervolemia and acidemia. Discussed with winch operator. I am doubtful that she will tolerate hemodialysis due to her ongoing hypotension. Recommend transfer to tertiary care center for continuous renal replacement therapy. Will obtain lactic acid level. Infectious disease: Currently on nafcillin. Blood cultures are 06/15/2021 - to date. Blood cultures from 06/11/2021 Staph aureus. Hematologic: Anemia of chronic disease present. No acute evidence of GI bleed. Gastroenterology following. Platelet count within normal limits. INR level mildly elevated to 1.6 last checked 06/17/2021. Endocrine: No significant concerns at present. VTE prophylaxis: SCDs CODE STATUS: Full code Family at bedside: None available at bedside Disposition: Discussed with hospitalist and winch operator. Recommend transfer to tertiary care center for CRRT and hyperkalemia. I have personally spent 97 minutes of critical care time in the direct management of this patient. This is a life/limb threatening event. This includes time spent evaluating patient, direct bedside care, chart review, placing orders, interpretation of diagnostic studies, discussion with consultants, patient, and family members, as well as other required patient management activities. This time is exclusive of all separately billable procedures, and teaching time and separate from and in addition to any other critical care service time. Thank you for allowing us to participate in the care of this patient. History of Present Illness Reason for Consultation: Hypotension and renal failure Requesting Physician: Dr. Zehra Faustin Attending Physician: Rommel Hanson DO History of Present Illness 61-year-old female with a past medical history of cirrhosis, paroxysmal atrial fibrillation, SVT, gastric bypass surgery, gastrogastric fistula, CKD stage III, septic arthritis, anemia of chronic disease and history of C. difficile who presented to the hospital 06/11/2021 due to encephalopathy. Patient is a very poor historian but has had a very complex hospital course. History is difficult to obtain from the patient due to her frequently mumbling and generally being a poor historian. She was found to have a urinary tract infection and a pseudobacteremia during this hospitalization. [facility] ctious disease was consulted. Aztreonam was recommended to be completed. She underwent a LUL for evaluation of infective endocarditis. This was performed today. An EF of 55 to 60%. No significant valvular pathology was noted. She is currently complaining of abdominal pain. She has been hypotensive today. Urine output has been minimal. She is currently on nafcillin. She is also on albumin 4 times daily as ordered by nephrology. She is receiving 10 mg 4 times daily Lasix. She had a CT of her abdomen completed on 06/16/2021. Anasarca was noted. She has avascular necrosis with a subchondral fracture of the partial articular collapse of the right femoral head. Hip CT demonstrated right hip avascular necrosis with severe osteoarthritis. Abdominal ultrasound was performed yesterday which demonstrated small pockets of ascites within the abdomen and pelvis. Paracentesis was not formed. Allergies Allergy/AdvReac Type Severity Reaction Status Date / Time cefaclor Allergy Intermediate Swelling Verified 03/11/21 22:25 oxycodone Allergy Intermediate HIVES Verified 03/11/21 22:25 amoxicillin Allergy Mild Nausea Verified 03/11/21 22:25 ceftriaxone [From Rocephin] Allergy Rash Verified 03/11/21 22:25 metronidazole [From Flagyl] Allergy Rash Verified 03/11/21 22:25 Home Medications Medication Instructions Recorded Confirmed Type cyanocobalamin (vitamin B-12) 1,000 mcg PO QAM 08/22/18 06/10/21 History 1,000 mcg tablet (Vitamin B-12) cholecalciferol (vitamin D3) 50 4,000 unit PO QAM 10/03/18 06/10/21 History mcg (2,000 unit) capsule (Vitamin D3) rifaximin 550 mg tablet (Xifaxan) 550 mg PO BID 10/03/18 06/10/21 History pantoprazole 40 mg tablet,delayed 40 mg PO BID 07/19/19 06/10/21 History release (Protonix) cetirizine 10 mg tablet (Zyrtec) 10 mg PO QAM 04/05/20 06/10/21 History amitriptyline 50 mg tablet 50 mg PO HS 09/02/20 06/10/21 History cyclobenzaprine 10 mg tablet 10 mg PO HS 09/02/20 06/10/21 History ferrous sulfate 220 mg (44 mg 220 mg PO QAM 11/25/20 06/10/21 History iron)/5 mL oral elixir lactulose 10 gram/15 mL oral 30 ml PO BID 11/25/20 06/10/21 History solution levothyroxine 75 mcg tablet 75 mcg PO DAILYBB 11/25/20 06/10/21 History sucralfate 1 gram tablet 1 g PO BID 11/25/20 06/10/21 History metoprolol tartrate 25 mg tablet 25 mg PO BID #0 tab 11/28/20 06/10/21 Rx ondansetron HCl 4 mg tablet 4 mg PO Q6H PRN #6 tab 01/31/21 06/10/21 Rx (Zofran) Lactobacillus comb 1 cap PO TIDM 06/10/21 06/10/21 History no.7-[id number] 300 million cell-250 mg capsule (Probiotic and Acidophilus) acetaminophen 325 mg tablet 650 mg PO Q6H PRN 06/10/21 06/10/21 History (Tylenol) duloxetine 30 mg capsule,delayed 30 mg PO QAM 06/10/21 06/10/21 History release enoxaparin 40 mg/0.4 mL 40 mg SUBCUT QAM 06/10/21 06/10/21 History subcutaneous syringe folic acid 1 mg tablet 1 mg PO QAM 06/10/21 06/10/21 History gabapentin 300 mg capsule 300 mg PO TID 06/10/21 06/10/21 History hydromorphone 4 mg tablet 4 mg PO TID 06/10/21 06/10/21 History (Dilaudid) menthol 0.44 %-zinc oxide 20.6 % 1 applic TOPICAL TID 06/10/21 06/10/21 History topical ointment (Calmoseptine) nitrofurantoin 100 mg PO BID 06/10/21 06/10/21 History monohydrate/macrocrystals 100 mg capsule saliva stimulant comb. no.3 4 spray MUCOUS MEMBRANE QID 06/10/21 06/10/21 History (Biotene Moisturizing Mouth) therapeutic multivitamin 1 tab PO QAM 06/10/21 06/10/21 History (Thera-Tabs) thiamine HCl (vitamin B1) 100 mg 100 mg PO DAILY 06/10/21 06/10/21 History tablet triamcinolone acetonide 0.1 % 1 applic TOPICAL TID 06/10/21 06/10/21 History topical cream zinc sulfate 220 mg capsule 220 mg PO QAM 06/10/21 06/10/21 History Patient History Medical History (Updated 06/18/21 @ 19:31 by Kei Lopez MD) Acute on chronic renal failure Acute renal failure with oliguria REJI (acute kidney injury) Anemia, iron deficiency Ascites Bacteremia Cirrhosis Depression Encephalopathy Gastric peptic ulcer Hypotension Hypothyroidism Neuropathy of both feet On anticoagulant therapy warfarin daily PAF (paroxysmal atrial fibrillation) SVT (supraventricular tachycardia) Volume overload Surgical History History of arthrodesis left leg History of arthroplasty of right shoulder unable to lift arm after sx History of arthroscopy of left knee x2 History of arthroscopy of right knee x7 History of cardiac cath 2011--no stents History of cholecystectomy History of colonoscopy History of esophagogastroduodenoscopy (EGD) History of gastric bypass History of open reduction and internal fixation (ORIF) procedure left tib/fib fx--hardware in place History of surgery on extremity 2017--right leg hardware in place per pt a "fusion of her leg" History of tooth extraction all teeth removed History of total right knee replacement (TKR) 2006 Family History Sister Breast cancer Mother Hypertension Diabetes Other No family history of adverse response to anesthesia Social History Smoking Status: Never smoker Second Hand Exposure: No; Do You Dip or Chew Tobacco: No; Tobacco Cessation Education Requested by Patient: No Hx Alcohol Use: Yes Alcohol type: wine and hard liquor Alcohol Intake Frequ ency: 4 or More x per/Week Alcohol Intake Frequency Comment: Pt states now drinks approx twice a week Hx Substance Use: Yes Preferred Language: Brune[place] Communication Ability: Effective Market Consultant Required: No Beliefs That Will Affect Care: None marital status: Single Current Living Situation: Correction Other Information That Helps Us Care for You: No Feels Safe at Home: No Is there a partner from a previous relationship who is making you feel unsafe now?: No Any Concerns about Your Family Situation: No Would You Like to Speak to Someone About Your Situation: No Safety Concerns: Feels Safe At This Time Assistive Devices: Brace/Splint/Immobilizer Review of Systems Review of Systems: 08/15 point ROS negative unless noted elsewhere Physical Exam Physical Exam: Constitutional: Patient with bitemporal wasting. Obese. Mild distress. Eyes: Pupils are equal round and reactive to light. Conjunctivae are normal. Anicteric sclera. Ears nose, mouth and throat: Mallampati class 2. Normal posterior oropharynx. Uvula is midline. Neck: Trachea is midline. Visual inspection is normal. Respiratory: Diminished lung bases. Cardiovascular: Regular rate and rhythm. No murmurs. No edema. Gastrointestinal: Abdomen is mildly distended and tender to palpation. Musculoskeletal: No cyanosis. Patient is able to move all extremities. Strength is 5 out of 5 in the upper and lower extremities. Skin: No rashes, warm dry and intact. Neurologic: No obvious focal neurological deficits seen. Psychiatric: Alert and oriented x3 with a euthymic affect. Results & Data Results & Data ([facility]) Vital Signs (Past 12 Hours) Vital Signs Temp Pulse Pulse Pulse Resp BP BP 06/18/21 11:14 97.7 F 95 H 20 98/62 L 06/18/21 10:14 92 H 12 103/65 06/18/21 09:04 91 H 18 90/61 L 06/18/21 08:54 94 H 19 06/18/21 08:45 88 16 83/56 L 06/18/21 08:30 90 16 81/56 L 08/17/21 07:15 88 18 86/48 L 06/18/21 07:10 98.1 F 90 18 85/49 L Pulse Ox 06/18/21 11:14 96 06/18/21 10:14 93 06/18/21 09:04 95 06/18/21 08:54 99 06/18/21 08:45 96 06/18/21 08:30 97 06/18/21 07:15 95 06/18/21 07:10 88 L Vital signs, labs and imaging personally reviewed Coding Level of Care Code 58040 Prolonged Care (int'l) Diagnoses Acute renal failure with oliguria N17.9; R34 Volume overload E87.70 Hypotension I95.9 PAF (paroxysmal atrial fibrillation) I48.0 Time Spent (min) 97
[2021-06-18] MEDS ORDERED: fentaNYL citrate 100 MCG/2 ML VIAL ONE (19:36)
--- NOTE | 2021-06-18 19:44 | Discharge Summary ---
Date of Service June 18, 2021 Admission HPI Per Admitting Provider This is a 61-year-old female with past medical history significant for hypothyroidism, paroxysmal atrial fibrillation, history of SVT, history of cirrhosis of liver, history of status post gastric bypass for obesity, history of gastrogastric fistula, history of chronic kidney disease stage III, personal history of septic arthritis, infection of prosthetic knee joint, back pain, chronic pain syndrome, anemia, anastomotic ulcer status post gastric bypass, history of C. diff, depression, pseudogout, history of GI bleed, history of narcotic drug use, who was sent in from the [facility] for confusion. [facility] staff are suspicious that the patient's family is giving her cannabinoid therapy and she was brought in for confusion and urine drug screen is positive for opiates, but she takes pain medications. The patient had arthroplasty, revision of the knee, and placement of articulating spacer on 04/02/2021. The patient has right knee prosthetic joint infection and a static antibiotic spacer placement in 2016. Now there is a plan to schedule for revision of right total knee arthroplasty and spacer removal on 06/11/2021, but recently saw orthopedics in [place] on 06/10/2021 morning and since her ESR was 5 and CRP was 39, it was decided not to do, and she was also active UTIs, she was supposed to follow on 07/01/2021 for right knee aspiration and discussion for spacer exchange, but tonight she was brought in because of confusion. Currently, the patient is drowsy. She only can tell her name, that she knows she is in the hospital. She thinks she has some nausea, denies any pain, but goes back to sleep and it is very difficult to get any history from the patient at this time. CT of the head, preliminary report unremarkable. Her ABG is okay. Ammonia level is okay. Urinalysis is positive for leukocyte esterase and bacteria. SARS-CoV-2 PCR is negative. Currently, hemodynamics are okay. Admission Exam Per Admitting Provider GENERAL: The patient is drowsy, but oriented to name and place. VITAL SIGNS: Temperature 36.7, pulse 101, respiratory rate 16, blood pressure 93/57, oxygen 95% on room air. HEENT: Pupils equal, round, and reactive to light. Oral mucosa dry. NECK: No JVD, no neck masses. CARDIOVASCULAR: S1 and S2 heard. Regular rate and rhythm. No murmur, no gallop. RESPIRATORY SYSTEM: Normal AP diameter. No accessory muscle use. No wheezing, no crackles. ABDOMEN: Soft, bowel sounds present, no distention, nontender. CENTRAL NERVOUS SYSTEM: Drowsy, but oriented to name and place. Obeys simple commands. Moves extremities. EXTREMITIES: Bilateral lower extremity edema present. Right lower extremity is in brace. Principal Diagnosis Staph Sepsis Bacteremia Renal Failure Hepatic Cirrhosis c Ascites s/p Encephalopathy UTI-Polymicrobial Anemia Discharge Exam see below Discharge Data Allergies Allergy/AdvReac Type Severity Reaction Status Date / Time cefaclor Allergy Intermediate Swelling Verified 03/11/21 22:25 oxycodone Allergy Intermediate HIVES Verified 03/11/21 22:25 amoxicillin Allergy Mild Nausea Verified 03/11/21 22:25 ceftriaxone [From Rocephin] Allergy Rash Verified 03/11/21 22:25 metronidazole [From Flagyl] Allergy Rash Verified 03/11/21 22:25 Consultations 06/10/21 23:11 ED Decision to Admit Stat 06/11/21 08:21 Consult Orthopedic Surgery Routine 06/11/21 18:32 Consult Infectious Diseases Routine 06/14/21 08:31 Consult Nephrology Routine 06/15/21 10:59 Consult Cardiology Routine 06/15/21 13:38 Consult Gastroenterology Routine 06/17/21 15:22 Consult Anesthesiology Routine 06/18/21 14:01 Consult Engineering Technology Instructor Routine 06/18/21 14:18 Consult Nutrition Routine Procedures Performed Operation Date: 06/17/21 16:45 Actual Procedures p Esophagogastroduodenoscopy - Jefferson Nina DO Operation Date: 06/18/21 08:00 Actual Procedures p Echo Transesophageal - Sina Gil DO s Echo Color Flow - Sina Gil DO Ordered Studies 06/10/21 21:27 CT head/brain wo con Urgent 06/11/21 01:26 US abdomen ltd ascites Urgent 06/11/21 13:30 US venous doppler LE BI Stat 06/12/21 14:23 US venous doppler LE RT Routine 06/15/21 00:05 US venous doppler LE LT Urgent 06/16/21 00:42 CT abd pelvis wo con Urgent 06/16/21 00:51 CT hip RT wo con Urgent 06/17/21 09:00 US abdomen ltd ascites Routine 06/18/21 19:23 US point of care ultrasound Urgent Hospital Course (1) Encephalopathy: (2) Bacteremia: 61-year-old female with PMH of hypothyroidism, PAF, SVT, cirrhosis, obesity status post gastric bypass, gastrogastric fistula, CKD stage III, septic arthritis, infection of prosthetic knee joint, back pain, chronic pain syndrome, anemia, anastomotic ulcer status post gastric bypass, C. difficile, depression, pseudogout, GI bleed, and narcotic drug use was sent to the ED 06/10 from [facility] for concerns of confusion. [facility] staff were suspicious that the patient's family is giving her cannabinoid therapy [urine drug screen positive for opiates at presentation -she also takes prescribed pain medications]. #. Acute encephalopathy #. Bacteremia -Staph aureus #. UTI Admitting CXR, head CT revealed no acute process. Multifactorial, likely from UTI versus acute on chronic kidney disease versus analgesics Patient had been afebrile in the hospital. 06/10 urine culture positive for E. coli and Klebsiella oxytoca. 06/11 blood culture positive for Staph aureus, follow-up with the final result. 06/15 repeat blood culture and urine culture sent. ID on board: Patient received daptomycin and aztreonam until 06/14 since admission when it was stopped due to blood culture being nonconclusive. Patient started on nafcillin 06/15. Patient does have renal and hepatic compromise, and hence keep an eye for interstitial nephritis/bone marrow suppression/neurotoxicity/elevated LFTs/cholestasis. In such event either decrease the dose by 50% or changed to daptomycin. Until before identification of GPC, it was deemed as contaminant and hence Dapto was stopped per ID. Identified as a staph aureus on 06/15 a.m.contacted ID again via [employer] textrecommended nafcillin or daptomycin for 14 days for now [she has history of reaction to cephalosporin, has tolerated certain cephalosporins in the past per pharmacyhence, trial of cephalosporin with close monitoring if needed could be a possibility] but if there is ongoing lance teremia/test positive for infective endocarditis we might need to consider ID re-evaluation of the patient and make recommendation. Cardiology on board: Contacted cardiology LUL today negative for IE Continue with nafcillin, continue to monitor. Likely need ID reevaluation after LUL. #. History of alc liver cirrhosis and ascites GI on board: EGD neg for Varices Possible paracentesis soon for loculated Ascites, SC heparin on board, Hold For IR when tap to be done #. Acute on chronic kidney disease not making progress Nephro on board: [place] placed, needs CRRT c BP support #. Anemia Hemoglobin at presentation 9.4, now 8.3. multifactorial Ferritin level elevated with elevated transferrin saturation, low iron and low TIBC, FOBT negative. Vitamin B12 and folate not deficient fairly stable #. Analgesics/chronic pain syndrome per H&P, SNF suspicious regarding family members bringing in additional pain medications/narcotics to patient per patient, she is receiving excessive Dilaudid at SNF Urine Drug Screen: Positive for opiates. Patient takes prescribed pain medications. hold narcotics for now monitor Avoid NSAIDs #. Right knee s/p antibiotic spacer 04/02/2021 -- follows with Brandin Dill as per last ff up visit Brandin Serrano 06/10/2021, treat UTI first then ff up 07/01 for possible aspiration, revision -- [facility] does not feel patient has infected R knee at this time -- monitor closely #. BL Leg edema -- Doppler US: negative #. Alcoholic cirrhosis of the liver without ascites: Will continue Xifaxan and lactulose. Not on any diuretics. -- no ascites on US #. Continue home medication for depression and hypertension. Deep venous thrombosis prophylaxis: Heparin SC Disposition Transfer to [facility] [place]-Dr Cameron ICU Dr Antonio Willis to cover Urine-polymicrobial UTI ROS-No Headache, No Visual Changes, No Nausea, No Vomiting, No Fever, No Chills, No Neck Pain or Stiffness, No Chest Pain, No Palpitations, No SOB, No THURMAN, No Cough, No Sputum, No Wheezing, No Abdominal Pain, No Diarrhea, No Hematemesis, No Hemoptysis, No Unexpected Weight Loss, No Flank pain, No Melena, No Hematochezia, No Frequency, No Urgency, No Burning, No Hematuria, No Rashes, No Diaphoresis. Appetite is low Physical Exam Gen-AAO x 3, NAD, Afebrile, Weak Head-NCAT, EOMI, PERRLA, Anicteric Sclera, No Posterior Pharyngeal Erythema Neck-Supple, No JVD, No Thyromegaly, No Masses, No LAD, No Bruits Lungs-Clear to Auscultation Bilaterally, No Rales, No Rhonchi, No Wheezing, No Crepitus Chest-No S4, +S1, +S2, No S3, No Murmurs, No Rubs, No Gallops, No Ectopy Abdomen-Soft, Bowel Sounds Present, Non Tender, Non Distended, No Hepatomegaly, No Splenomegaly, No Palpable Masses, No Rebound, No Rigidity, No Guarding Musculoskeletal-Full Range of Motion Bilaterally, No CVAT Extremities-No Cyanosis, No Clubbing, 3+Edema Nuero-Cranial Nerves II-XII grossly intact, Motor WNL, DTRs WNL, Non Focal Psych-Flat Total Time Total Time Spent Total Time Spent (In Minutes): 60 mins Total Time Includes: Examination of the Patient, Discharge Planning, Medication Reconciliation and Communication With Other Providers Discharge Plan Discharge Items Patient Disposition: Transfer Acute [facility] Reason For Visit: CONFUSION Discharge Diagnosis: Staph Sepsis Bacteremia Renal Failure Hepatic Cirrhosis c Ascites s/p Encephalopathy UTI-Polymicrobial Anemia Condition on Discharge: Critical Health Concerns: Worsening Renal function and Sepsis Activity: As commented below Activity Comment: Bedrest Lifting: None Exercise/Sports: Rest today Weightbearing: Full weightbearing Non-emergency contact: Primary Care Provider, Specialist and Sales Broker Call non-emergency contact if: you have any medication questions Follow-up/Referrals: [facility] [Primary Care Provider] - Diet: Dialysis Renal Fluids: 1200ml (5 cups) Addtl Attending Provider Instructions: None Pending Studies at Discharge: No Stand-Alone Forms: My Mila Skilled Items Patient informed of condition?: Yes DNR: No Discharge Level of Care: Other Communicable Disease: No Discharge Prognosis: Deteriorating Lines: Peripheral IV Urinary Catheter: Yes Medications and DC Order Prescriptions: New acetaminophen 325 mg Tablet 325 mg PO Q6H PRN (Reason: fever or pain) Qty: 10 RF: 0 tramadol 50 mg Tablet 25 - 50 mg PO Q4H PRN (Reason: pain (scale score 4-6)) Qty: 10 RF: 0 spironolactone 25 mg Tablet 12.5 mg PO DAILY Qty: 10 RF: 0 heparin, porcine (PF) 5,000 unit/0.5 mL Syringe 5,000 unit subcut Q8 Qty: 10 RF: 0 magnesium oxide 400 mg (241.3 mg magnesium) Tablet 400 mg PO BID Qty: 10 RF: 0 ertapenem [Invanz] 1 gram recon soln 1 g IM DAILY Qty: 1 RF: 0 nafcillin 1 gram recon soln 1 g IV Q4H Qty: 1 RF: 0 Continued Xifaxan 550 mg tablet 550 mg PO BID RF: 0 cholecalciferol (vitamin D3) [Vitamin D3] 2,000 unit capsule 4,000 unit PO QAM RF: 0 pantoprazole [Protonix] 40 mg Tablet,Delayed Release (Dr/Ec) 40 mg PO BID RF: 0 cyanocobalamin (vitamin B-12) [Vitamin B-12] 1,000 mcg Tablet 1,000 mcg PO QAM RF: 0 sucralfate 1 gram tablet 1 g PO BID RF: 0 levothyroxine 75 mcg Tablet 75 mcg PO DAILYBB RF: 0 lactulose 10 gram/15 mL solution 30 ml PO BID RF: 0 ondansetron HCl [Zofran] 4 mg tablet 4 mg PO Q6H PRN (Reason: nausea and vomiting) Qty: 6 RF: 0 acetaminophen [Tylenol] 325 mg Tablet 650 mg PO Q6H PRN (Reason: FEVER >100/PAIN) RF: 0 thiamine HCl (vitamin B1) 100 mg Tablet 100 mg PO DAILY RF: 0 Thera-Tabs Tablet 1 tab PO QAM RF: 0 triamcinolone acetonide 0.1 % Cream 1 applic TOPICAL TID RF: 0 folic acid 1 mg Tablet 1 mg PO QAM RF: 0 zinc sulfate 220 mg Capsule 220 mg PO QAM RF: 0 duloxetine 30 mg Capsule,Delayed Release(Dr/Ec) 30 mg PO QAM RF: 0 Calmoseptine 0.44-20.6 % Ointment 1 applic TOPICAL TID RF: 0 Probiotic and Acidophilus 300-250 million cell-mg Capsule 1 cap PO TIDM RF: 0 gabapentin 300 mg capsule 300 mg PO TID RF: 0 Discontinued cetirizine [Zyrtec] 10 mg tablet 10 mg PO QAM RF: 0 cyclobenzaprine 10 mg tablet 10 mg PO HS RF: 0 amitriptyline 50 mg tablet 50 mg PO HS RF: 0 ferrous sulfate 220 mg (44 mg iron)/5 mL elixir 220 mg PO QAM RF: 0 metoprolol tartrate 25 mg tablet 25 mg PO BID Qty: 0 RF: 0 hydromorphone [Dilaudid] 4 mg Tablet 4 mg PO TID RF: 0 enoxaparin 40 mg/0.4 mL syringe 40 mg subcut QAM RF: 0 nitrofurantoin monohyd/m-cryst 100 mg capsule 100 mg PO BID RF: 0 No Action Biotene Moisturizing Mouth [place],Non-Aerosol 4 spray MUCOUS MEMBRANE QID RF: 0 Discharge Orders: Discharge Order (Routine); Ordered 06/18/21 Ordered By: Rommel Hanson Admission Data Admit Date/Time: 06/11/21 00:21 Attending Provider: Rommel Hanson Admit Provider: Tony Matute Primary Care Provider: [facility] Other Providers: [facility] ; [facility], ; [facility] ; Tony Matute ; Saud Mccarty ; Chidi Devlin ; Carrillo Short ; Eladio Randhawa I. ; Merlin Waggoner II ; Luz Elena López ; Naresh Cooper ; Conrad Diallo ; Manuel Machuca ; Roxie Villarreal ; Jarad Bacon ; Zehra Ruzi Other Interventions: Discharge Summary Assessment (RN) Last Done: 06/17/21 13:27
[2021-06-18] MEDS ORDERED: STAT IV Infusion **Titration per Protocol STA (19:57)
[2021-06-18] MEDS ORDERED: NOREPINEPHRINE/D5W 8 MG/508 ML BAG IV SCH (20:00)
--- NOTE | 2021-06-18 20:22 | XRay Report ---
XR chest 1V portable CLINICAL HISTORY: s/p right IJ placement COMPARISON STUDY: June 10, 2021 FINDINGS: No pneumothorax. Interval development of small left pleural effusion. Interval prominence of patchy airspace opacities throughout bilateral mid to lower lung region. Evalu ation is limited due to low inspiratory effort. Cardiomediastinal silhouette is stable. Pulmonary vasculature is indistinct.. Osseous structures: Mild osteopenia. Degenerative changes of the spine. Prosthetic right shoulder is again seen. Interval placement of the right central venous catheter with tip projecting to the anatomical region of the atriocaval junction. IMPRESSION: 1. Interval placement of right-sided intravenous catheter with tip projecting to the anatomical albino on of atriocaval junction. No definite pneumothorax is seen. 2. Interval development of patchy airspace opacities within bilateral mid to lower lungs which could be exaggerated due to low inspiratory effort or represent pneumonia or/and pulmonary edema. 3. The rest of findings as above. ACT 112: Negative or not required by law. The above report was generated using voice recognition software. It may contain grammatical, syntax o r spelling errors. Electronically signed by: Delia Nunez DO 06/18/2021 8:20 PM
[2021-06-18] MEDS ORDERED: fentaNYL citrate 100 MCG/2 ML VIAL IV ONE (20:23)
[2021-06-18] MEDS: ALBUMIN 25% 12.5 GM/50 ML VIAL IV SCH ×2 (20:29→22:52)
[2021-06-18] MEDS ORDERED: FUROSEMIDE 40 MG in SYRINGE 0 ML IV ONE (20:45)
[2021-06-18 20:55] LABS: BUN Creatinine Ratio 7.2 (10-20); Calcium 7.8 mg/dl (8.5-10.1); Creatinine Clr Calc Pharmacy 19.1 ml/min; Est GFR (African American) 15.6 ml/min; Est GFR (Non-African American) 13.5 ml/min; Potassium 4.3 mmol/L (3.5-5.1)
--- NOTE | 2021-06-18 20:56 | Procedure Note ---
Procedure Note Date of Service June 18, 2021 Note INTERNAL JUGULAR CENTRAL LINE PROCEDURE NOTE: Procedure: Internal Jugular Hemodialysis catheter placement Attending: Dr. Lopez Provider: LONG Levine Indication: Hemodialysis, Central venous Drug administration Anesthesia:Lidocaine 1% Consent was signed and placed on the chart prior to procedure. Indication, risks, and benefits were explained at length. A time-out was completed verifying correct patient, procedure, site, positioning, and implants(s) or special equipment if applicable. Patients Right Neck was cleansed and draped in the typical sterile fashion using Chloraprep. The Internal Jugular Vein and Carotid Artery were identified using ultrasound. The superficial tissue was anesthetized using 5 mL of 1% lidocaine without epinephrine under direct visualization with the ultrasound. After adequate anesthetization was achieved, the Internal Jugular vein was cannulated under direct ultrasound guidance using an introducer needle on a syringe. Good venous blood return was maintained prior to removal of syringe from introducer needle. Using Seldinger Technique, a guide wire was advanced through the introducer needle without resistance. The introducer needle was removed and ultrasound images were obtained of the guide wire within the Internal Jugular Vein and saved to the patients medical record.A small incision was made in penetrating fashion at the guide wire insertion site utilizing an 11 blade scalpel. The dilator was advanced to the vessel without resistance.The smaller dilator was then exchanged for the larger dilator without resistance. The Second dilator was exchanged for the Hemodialysis catheter which was advanced into the vessel without resistance. The guide wire was removed intact from the catheter without issue. Claves were placed on each catheter tip with confirmation of good blood flow from each lumen. Each port was easily flushed with sterile saline. The catheter was placed at 13 cm at the hub and sutured in place. Sterile dressing was applied over the catheter with careful attention to sterility. Patient tolerated procedure well. No immediate complications were met. Post procedure x-ray was completed, placement was appropriate and no pneumothorax was noted. Images obtained are saved for permanent record Procedural Ultrasound Guidance: Procedure Date: 06/18/2021 Indication: Hemodialysis catheter insertion Attending: Dr. Lopez Provider: LONG Levine Artery AND Vein visualized: Yes Compressible Vein: Yes Guidewire or Short Catheter seen in vein prior to dilation: Yes Line confirmed in Vein with ultrasound: Yes Images obtained are saved for permanent record. Coding CPT Codes Tubes, Drains, and Vasc Access - Tubes, Drains, and Vasc Access: [id number] Place catheter in vein superior or inferior vena cava ([id number]) Tubes, Drains, and Vasc Access - Tubes, Drains, and Vasc Access: [id number] Ultrasound Guidance For Vascular ([id number]) [facility] [place] Procedure Codes (Charges) Tubes, Drains, and Vasc Access Procedure 1: Tubes, Drains, and Vasc Access: [id number] Place catheter in vein superior or inferior vena cava Procedure 2: Tubes, Drains, and Vasc Access: [id number] Ultrasound Guidance For Vascular
[2021-06-18] MEDS: GABAPENTIN 300 MG CAP PO SCH (22:00)
== END 2021-06-19 | disposition short-term general hospital (02) | DRG 871 ==
LOC: ED 20:34 → SUATTDRO 06-11 00:21 → 2S 06-11 00:21 → 2W 06-13 20:35 → 1E 06-17 00:48